=== PATIENT | male | born 1965 | race Caucasian/White ===

== ENCOUNTER 2017-03-18 19:42 | Inpatient (IN) | payer MEDICAID ==
[~2017-03-18] VITALS: Ht 175.3 cm; Wt 228.7 kg
[2017-03-18 22:06] VITALS: BP 96/59
[2017-03-18] MEDS ORDERED: CARV12.5 PO (22:10)
[2017-03-18] MEDS ORDERED: SIME80TA16 PO (22:15)
[2017-03-18] MEDS ORDERED: HYDR-3343 PO (22:15)
[2017-03-18] MEDS ORDERED: ERGO80004 PO (22:17)
[2017-03-18] MEDS ORDERED: DOCU50LI24 PO (22:39)
[2017-03-18] MEDS ORDERED: CEFD300C37 PO (22:39)
[2017-03-18] MEDS ORDERED: DOXY100T9 PO (22:39)
[2017-03-18] MEDS ORDERED: POLY17PO3 PO (22:39)
[2017-03-18] MEDS ORDERED: IBUP800T PO (22:39)
[2017-03-18] MEDS ORDERED: OXYC-223 PO (22:45)
[2017-03-18] MEDS ORDERED: CLON0.2T PO (22:45)
[2017-03-18] MEDS ORDERED: LISI40TA PO (22:45)
[2017-03-18] MEDS ORDERED: MELO-190 PO (22:45)
[2017-03-18] MEDS ORDERED: OXYC20OR8 PO (22:45)
[2017-03-18] MEDS ORDERED: GUAIFENESIN/DM 200-20MG, 10ML UDC PO PRN (23:00)
[2017-03-18] MEDS ORDERED: ONDANSETRON 2MG/ML, 2ML IVPush PRN (23:00)
[2017-03-18] MEDS ORDERED: DOCUSATE 100 MG CAPSULE PO PRN (23:00)
[2017-03-18] MEDS ORDERED: hydrALAzine 20 MG/ML, 1ML IVPush PRN (23:00)
[2017-03-18] MEDS ORDERED: POLYETHYLENE GLYCOL 17 GM PACKET PO PRN (23:00)
[2017-03-18] MEDS ORDERED: morphine SULFATE 10 MG/ML, 1ML IVPush PRN (23:00)
[2017-03-18] MEDS: DOXYCYCLINE 100MG TABLET PO SCH (23:58)
[2017-03-18] MEDS: CEFDINIR 300 MG CAPSULE PO SCH (23:58)
[2017-03-18] MEDS: SODIUM CHLORIDE 0.9% 1,000 ML IV SCH (23:59)
[2017-03-19] VITALS (19 sets, daily range): BP systolic 85–128; BP diastolic 39–71
[2017-03-19 00:19] LABS: TOTAL IRON BINDING CAPACITY 190 mcg/dL (250-450)
[2017-03-19 00:21] LABS: HEMOGLOBIN 6.6 g/dL (13.7-18.0)
[2017-03-19 00:26] LABS: BLOOD UREA NITROGEN 146 mg/dL (7-18)
[2017-03-19] MEDS: HYDROcodone/APAP 5/325 TABLET PO PRN ×2 (00:27→17:31)
[2017-03-19 00:40] LABS: FERRITIN 114.6 ng/mL (26-388)
[2017-03-19 00:49] LABS: DIFF TOTAL CELLS COUNTED 100 CELL DIFF
[2017-03-19 00:59] LABS: ANISOCYTOSIS 1+; HYPOCHROMIA 1+
[2017-03-19 01:00] LABS: POLYCHROMASIA 1+
[2017-03-19 01:01] LABS: VERIFY COUNTS? YES
[2017-03-19 02:43] LABS: POTASSIUM,URINE RANDOM 30 mmol/L
[2017-03-19] MEDS: INSULIN ASPART 100 UNITS/ML, PEN SQ-INSULIN SCH ×4 (07:00→20:34)
[2017-03-19] MEDS: SEVELAMER 800MG TABLET PO SCH ×3 (08:33→17:25)
[2017-03-19] MEDS: DOXYCYCLINE 100MG TABLET PO SCH ×2 (08:34→20:25)
[2017-03-19] MEDS: CEFDINIR 300 MG CAPSULE PO SCH (08:34)
[2017-03-19] MEDS: CARVEDILOL 3.125 MG TABLET PO SCH ×2 (08:35→20:25)
[2017-03-19] MEDS: SODIUM CHLORIDE 0.9% 1,000 ML IV SCH ×3 (10:18→20:26)
[2017-03-19 10:49] LABS: BLOOD UREA NITROGEN 146 mg/dL (7-18)
[2017-03-19 11:11] LABS: WHITE BLOOD COUNT 4.9 x10^3/uL (3.4-10)
[2017-03-19 11:14] LABS: HEMATOCRIT 20.8 % (39.2-51.8); HEMOGLOBIN 6.9 g/dL (13.7-18.0)
[2017-03-19 11:18] LABS: ANISOCYTOSIS 1+; OVALOCYTES 1+; POLYCHROMASIA 1+
[2017-03-19] MEDS: CEFTRIAXONE PMX 2GM/50ML 50 ML IV SCH (18:32)
[2017-03-19] MEDS: NYSTATIN TOPICAL POWDER 15GM TP SCH ×2 (20:00→20:26)
[2017-03-19] MEDS ORDERED: SODIUM CHLORIDE 0.9% 1,000 ML IV SCH (22:55)
[2017-03-20 01:30] VITALS: BP 108/57
[2017-03-20 03:17] LABS: ASPARTATE AMINO TRANSFERASE 26 U/L (15-37)
[2017-03-20 03:24] LABS: BLOOD UREA NITROGEN 148 mg/dL (7-18)
[2017-03-20 04:08] LABS: HEMATOCRIT 25.1 % (39.2-51.8); HEMOGLOBIN 8.4 g/dL (13.7-18.0); WHITE BLOOD COUNT 6.6 x10^3/uL (3.4-10)
[2017-03-20] MEDS: SODIUM CHLORIDE 0.9% 1,000 ML IV SCH ×2 (06:28→15:27)
[2017-03-20] MEDS: INSULIN ASPART 100 UNITS/ML, PEN SQ-INSULIN SCH ×4 (07:00→19:54)
[2017-03-20 07:45] VITALS: BP 91/55
[2017-03-20] MEDS: SEVELAMER 800MG TABLET PO SCH ×3 (08:00→16:52)
[2017-03-20] MEDS: NYSTATIN TOPICAL POWDER 15GM TP SCH ×2 (09:00→20:10)
[2017-03-20] MEDS: CARVEDILOL 3.125 MG TABLET PO SCH (09:00)
[2017-03-20 12:18] LABS: OCCBLD OBC PASS
[2017-03-20] MEDS: DOXYCYCLINE 100MG TABLET PO SCH ×2 (12:24→20:10)
[2017-03-20] MEDS: HYDROcodone/APAP 5/325 TABLET PO PRN (12:28)
[2017-03-20 13:09] VITALS: BP 130/79
[2017-03-20] MEDS: CEFTRIAXONE PMX 2GM/50ML 50 ML IV SCH (15:27)
[2017-03-20 19:55] VITALS: BP 112/63
[2017-03-21] VITALS (11 sets, daily range): BP systolic 92–128; BP diastolic 57–72
[2017-03-21] MEDS: HYDROcodone/APAP 5/325 TABLET PO PRN (00:03)
[2017-03-21] MEDS: SODIUM CHLORIDE 0.9% 1,000 ML IV SCH ×2 (01:30→11:29)
[2017-03-21 06:31] LABS: HEMATOCRIT 23.4 % (39.2-51.8); HEMOGLOBIN 7.7 g/dL (13.7-18.0); WHITE BLOOD COUNT 5.3 x10^3/uL (3.4-10)
[2017-03-21 06:50] LABS: ASPARTATE AMINO TRANSFERASE 22 U/L (15-37)
[2017-03-21 06:52] LABS: BLOOD UREA NITROGEN 139 mg/dL (7-18)
[2017-03-21] MEDS: INSULIN ASPART 100 UNITS/ML, PEN SQ-INSULIN SCH ×4 (07:00→20:04)
[2017-03-21] MEDS: HYDROCORTISONE 25 MG SUPP PR SCH ×3 (09:33→20:43)
[2017-03-21] MEDS: NYSTATIN TOPICAL POWDER 15GM TP SCH ×2 (09:35→20:43)
[2017-03-21] MEDS: SEVELAMER 800MG TABLET PO SCH ×3 (09:36→16:59)
[2017-03-21] MEDS: DOXYCYCLINE 100MG TABLET PO SCH ×2 (09:36→20:43)
[2017-03-21] MEDS: ALBUMIN HUMAN 25% 50 ML IV SCH ×3 (13:26→21:39)
[2017-03-21] MEDS: CEFTRIAXONE PMX 2GM/50ML 50 ML IV SCH (14:49)
[2017-03-21 15:32] LABS: HEMATOCRIT 20.5 % (39.2-51.8); HEMOGLOBIN 6.8 g/dL (13.7-18.0)
[2017-03-22] MEDS: SODIUM CHLORIDE 0.9% 1,000 ML IV SCH ×2 (01:18→12:27)
[2017-03-22 01:40] VITALS: BP 85/36
[2017-03-22 05:05] LABS: HEMATOCRIT 24.5 % (39.2-51.8); HEMOGLOBIN 8.2 g/dL (13.7-18.0); WHITE BLOOD COUNT 5.1 x10^3/uL (3.4-10)
[2017-03-22 05:09] LABS: ASPARTATE AMINO TRANSFERASE 20 U/L (15-37)
[2017-03-22 05:13] LABS: BLOOD UREA NITROGEN 134 mg/dL (7-18)
[2017-03-22] MEDS: INSULIN ASPART 100 UNITS/ML, PEN SQ-INSULIN SCH ×4 (07:00→21:00)
[2017-03-22 07:38] VITALS: BP 96/58
[2017-03-22] MEDS: SEVELAMER 800MG TABLET PO SCH ×3 (08:00→16:59)
[2017-03-22] MEDS: ALBUMIN HUMAN 25% 50 ML IV SCH ×2 (10:31→21:54)
[2017-03-22] MEDS: NYSTATIN TOPICAL POWDER 15GM TP SCH ×2 (10:31→21:55)
[2017-03-22] MEDS: HYDROCORTISONE 25 MG SUPP PR SCH ×3 (10:31→21:54)
[2017-03-22] MEDS: DOXYCYCLINE 100MG TABLET PO SCH ×2 (10:31→21:54)
[2017-03-22 14:57] VITALS: BP 143/67
[2017-03-22] MEDS: CEFTRIAXONE PMX 2GM/50ML 50 ML IV SCH (15:02)
[2017-03-22] MEDS: GOLYTELY 4,000ML ORAL.SOL PO SCH (16:59)
[2017-03-22 18:28] VITALS: BP 105/64
[2017-03-22] MEDS: HYDROcodone/APAP 5/325 TABLET PO PRN (22:05)
[2017-03-23] VITALS (12 sets, daily range): BP systolic 99–149; BP diastolic 44–73
[2017-03-23] MEDS: GOLYTELY 4,000ML ORAL.SOL PO SCH (02:27)
[2017-03-23] MEDS: SODIUM CHLORIDE 0.9% 1,000 ML IV SCH ×2 (04:12→23:48)
[2017-03-23 06:13] LABS: HEMATOCRIT 25.9 % (39.2-51.8); HEMOGLOBIN 8.7 g/dL (13.7-18.0)
[2017-03-23 06:24] LABS: ASPARTATE AMINO TRANSFERASE 24 U/L (15-37)
[2017-03-23 06:36] LABS: BLOOD UREA NITROGEN 111 mg/dL (7-18)
[2017-03-23] MEDS: INSULIN ASPART 100 UNITS/ML, PEN SQ-INSULIN SCH ×4 (07:00→21:00)
[2017-03-23] MEDS: SEVELAMER 800MG TABLET PO SCH ×3 (07:21→17:00)
[2017-03-23] MEDS: HYDROCORTISONE 25 MG SUPP PR SCH ×3 (07:22→21:08)
[2017-03-23] MEDS: DOXYCYCLINE 100MG TABLET PO SCH ×2 (07:22→21:07)
[2017-03-23 09:00] LABS: HEMATOCRIT 26.2 % (39.2-51.8); HEMOGLOBIN 8.8 g/dL (13.7-18.0); WHITE BLOOD COUNT 5.4 x10^3/uL (3.4-10)
[2017-03-23] MEDS: NYSTATIN TOPICAL POWDER 15GM TP SCH ×2 (09:00→21:08)
[2017-03-23] MEDS ORDERED: PROPOFOL 10 MG/ML, 50ML ONE (09:06)
[2017-03-23] MEDS: HYDROcodone/APAP 5/325 TABLET PO PRN (12:30)
[2017-03-23 12:36] LABS: HEMATOCRIT 25.8 % (39.2-51.8); HEMOGLOBIN 8.6 g/dL (13.7-18.0)
[2017-03-23] MEDS: ALBUMIN HUMAN 25% 50 ML IV SCH ×2 (15:36→21:08)
[2017-03-23] MEDS: CEFTRIAXONE PMX 2GM/50ML 50 ML IV SCH (15:36)
[2017-03-23 23:58] LABS: HEMATOCRIT 25.1 % (39.2-51.8); HEMOGLOBIN 8.1 g/dL (13.7-18.0)
[2017-03-24 01:33] VITALS: BP 114/68
[2017-03-24 05:42] LABS: HEMATOCRIT 24.5 % (39.2-51.8)
[2017-03-24 06:01] LABS: BLOOD UREA NITROGEN 99 mg/dL (7-18)
[2017-03-24] MEDS: INSULIN ASPART 100 UNITS/ML, PEN SQ-INSULIN SCH (07:00)
[2017-03-24 07:30] VITALS: BP 105/65
[2017-03-24] MEDS: HYDROCORTISONE 25 MG SUPP PR SCH ×3 (08:29→21:00)
[2017-03-24] MEDS: DOXYCYCLINE 100MG TABLET PO SCH ×2 (08:29→21:45)
[2017-03-24] MEDS: NYSTATIN TOPICAL POWDER 15GM TP SCH ×2 (08:29→21:45)
[2017-03-24] MEDS: ALBUMIN HUMAN 25% 50 ML IV SCH ×2 (08:29→21:00)
[2017-03-24] MEDS: SEVELAMER 800MG TABLET PO SCH ×3 (08:29→16:02)
[2017-03-24] MEDS ORDERED: MAALOX/HYOSCYAMINE/LIDOCAINE 45 ML BTL PO PRN ×2 (09:00)
[2017-03-24] MEDS: PANTOPROZOLE 40MG TABLET PO SCH ×2 (11:08→21:45)
[2017-03-24] MEDS: SUCRALFATE 1 GM TABLET PO SCH ×3 (11:08→21:45)
[2017-03-24 11:16] LABS: PROTIME 14.5 Seconds (9.6-11.5)
[2017-03-24 11:37] LABS: HEMATOCRIT 25.1 % (39.2-51.8); HEMOGLOBIN 8.4 g/dL (13.7-18.0)
[2017-03-24 12:30] VITALS: BP 93/58
[2017-03-24] MEDS: SODIUM CHLORIDE 0.9% 1,000 ML IV SCH (14:11)
[2017-03-24] MEDS: CEFTRIAXONE PMX 2GM/50ML 50 ML IV SCH (14:12)
[2017-03-24 17:25] LABS: HEMATOCRIT 25.9 % (39.2-51.8); HEMOGLOBIN 8.2 g/dL (13.7-18.0)
[2017-03-24 20:00] VITALS: BP 104/62
[2017-03-25 02:00] VITALS: BP 105/57
[2017-03-25] MEDS: SODIUM CHLORIDE 0.9% 1,000 ML IV SCH ×2 (05:08→16:46)
[2017-03-25 05:59] LABS: HEMATOCRIT 25.7 % (39.2-51.8); HEMOGLOBIN 8.7 g/dL (13.7-18.0); WHITE BLOOD COUNT 5.9 x10^3/uL (3.4-10)
[2017-03-25 06:06] LABS: BLOOD UREA NITROGEN 91 mg/dL (7-18)
[2017-03-25 07:06] VITALS: BP 84/50
[2017-03-25] MEDS: HYDROCORTISONE 25 MG SUPP PR SCH ×3 (09:00→20:47)
[2017-03-25] MEDS: NYSTATIN TOPICAL POWDER 15GM TP SCH ×2 (09:14→20:48)
[2017-03-25] MEDS: SUCRALFATE 1 GM TABLET PO SCH ×4 (09:15→20:47)
[2017-03-25] MEDS: PANTOPROZOLE 40MG TABLET PO SCH ×2 (09:15→20:47)
[2017-03-25] MEDS: SEVELAMER 800MG TABLET PO SCH ×3 (09:15→16:46)
[2017-03-25] MEDS: DOXYCYCLINE 100MG TABLET PO SCH ×2 (09:15→20:46)
[2017-03-25 11:33] VITALS: BP 90/51
[2017-03-25 12:53] VITALS: BP 92/53
[2017-03-25] MEDS: CEFTRIAXONE PMX 2GM/50ML 50 ML IV SCH (14:00)
[2017-03-25] MEDS ORDERED: LIDOCAINE 1%, 20ML ONE (15:46)
[2017-03-25] MEDS ORDERED: MIDAZOLAM 1 MG/ML, 5ML ONE (15:53)
[2017-03-25] MEDS ORDERED: FENTANYL PF 100 MCG/2ML ONE (15:54)
[2017-03-25] MEDS ORDERED: NALOXONE 1 MG/ML, 2ML ONE (15:54)
[2017-03-25] MEDS ORDERED: FLUMAZENIL 0.1 MG/1 ML, 5ML ONE (15:54)
[2017-03-25 20:00] VITALS: BP 89/54
[2017-03-26] VITALS (11 sets, daily range): BP systolic 95–119; BP diastolic 40–63
[2017-03-26] MEDS: HYDROcodone/APAP 5/325 TABLET PO PRN ×2 (03:26→13:36)
[2017-03-26 03:32] LABS: HEMATOCRIT 24.7 % (39.2-51.8); HEMOGLOBIN 8.2 g/dL (13.7-18.0); WHITE BLOOD COUNT 5.4 x10^3/uL (3.4-10)
[2017-03-26 03:41] LABS: BLOOD UREA NITROGEN 83 mg/dL (7-18)
[2017-03-26] MEDS: SODIUM CHLORIDE 0.9% 1,000 ML IV SCH ×2 (06:30→20:01)
[2017-03-26] MEDS: SUCRALFATE 1 GM TABLET PO SCH ×4 (08:37→20:01)
[2017-03-26] MEDS: DOXYCYCLINE 100MG TABLET PO SCH ×3 (08:37→20:01)
[2017-03-26] MEDS: SEVELAMER 800MG TABLET PO SCH ×3 (08:37→17:56)
[2017-03-26] MEDS: PANTOPROZOLE 40MG TABLET PO SCH ×2 (08:37→20:01)
[2017-03-26] MEDS: HYDROCORTISONE 25 MG SUPP PR SCH ×3 (08:37→20:05)
[2017-03-26] MEDS: NYSTATIN TOPICAL POWDER 15GM TP SCH ×2 (09:00→20:01)
[2017-03-26] MEDS: CEFTRIAXONE PMX 2GM/50ML 50 ML IV SCH ×2 (09:53→11:15)
[2017-03-26] MEDS ORDERED: ALBUTEROL SULFATE 2.5 MG/3 ML ONE (21:49)
[2017-03-27 04:50] VITALS: BP 108/42
[2017-03-27 04:51] LABS: HEMATOCRIT 23.7 % (39.2-51.8); HEMOGLOBIN 7.9 g/dL (13.7-18.0)
[2017-03-27 04:59] LABS: BLOOD UREA NITROGEN 80 mg/dL (7-18)
[2017-03-27 06:45] VITALS: BP 90/52
[2017-03-27] MEDS: HYDROCORTISONE 25 MG SUPP PR SCH ×3 (07:49→21:00)
[2017-03-27] MEDS: SEVELAMER 800MG TABLET PO SCH ×3 (09:22→18:21)
[2017-03-27] MEDS: DOXYCYCLINE 100MG TABLET PO SCH ×2 (09:22→21:39)
[2017-03-27] MEDS: CEFTRIAXONE PMX 2GM/50ML 50 ML IV SCH (09:22)
[2017-03-27] MEDS: NYSTATIN TOPICAL POWDER 15GM TP SCH ×2 (09:22→21:39)
[2017-03-27] MEDS: SUCRALFATE 1 GM TABLET PO SCH ×4 (09:22→21:39)
[2017-03-27] MEDS: PANTOPROZOLE 40MG TABLET PO SCH ×2 (09:22→21:39)
[2017-03-27] MEDS: SODIUM CHLORIDE 0.9% 1,000 ML IV SCH (09:23)
[2017-03-27 13:22] VITALS: BP 111/60
[2017-03-27 18:31] VITALS: BP 119/66
[2017-03-28] VITALS (7 sets, daily range): BP systolic 75–99; BP diastolic 41–64
[2017-03-28] MEDS: HYDROcodone/APAP 5/325 TABLET PO PRN (05:17)
[2017-03-28] MEDS: SODIUM CHLORIDE 0.9% 1,000 ML IV SCH (05:47)
[2017-03-28 06:23] LABS: HEMATOCRIT 24.4 % (39.2-51.8); HEMOGLOBIN 8.1 g/dL (13.7-18.0); WHITE BLOOD COUNT 5.4 x10^3/uL (3.4-10)
[2017-03-28 06:37] LABS: BLOOD UREA NITROGEN 83 mg/dL (7-18)
[2017-03-28] MEDS: SUCRALFATE 1 GM TABLET PO SCH ×4 (08:21→20:10)
[2017-03-28] MEDS: HYDROCORTISONE 25 MG SUPP PR SCH ×3 (09:00→20:10)
[2017-03-28] MEDS: CEFTRIAXONE PMX 2GM/50ML 50 ML IV SCH (09:38)
[2017-03-28] MEDS: DOXYCYCLINE 100MG TABLET PO SCH ×2 (09:38→20:10)
[2017-03-28] MEDS: SEVELAMER 800MG TABLET PO SCH ×3 (09:39→17:32)
[2017-03-28] MEDS: PANTOPROZOLE 40MG TABLET PO SCH ×2 (09:39→20:10)
[2017-03-28] MEDS: NYSTATIN TOPICAL POWDER 15GM TP SCH ×2 (12:26→20:10)
[2017-03-29 00:49] VITALS: BP 95/52
[2017-03-29 08:20] VITALS: BP 94/55
[2017-03-29] MEDS: SUCRALFATE 1 GM TABLET PO SCH ×2 (08:36→12:35)
[2017-03-29] MEDS: HYDROCORTISONE 25 MG SUPP PR SCH (09:00)
[2017-03-29] MEDS: CEFTRIAXONE PMX 2GM/50ML 50 ML IV SCH (09:39)
[2017-03-29] MEDS: SEVELAMER 800MG TABLET PO SCH (09:39)
[2017-03-29] MEDS: DOXYCYCLINE 100MG TABLET PO SCH (09:40)
[2017-03-29] MEDS: NYSTATIN TOPICAL POWDER 15GM TP SCH (09:40)
[2017-03-29] MEDS: PANTOPROZOLE 40MG TABLET PO SCH (09:40)
== END 2017-03-29 13:34 | disposition left against medical advice (07) | DRG 871 ==
LOC: 4WST 20:44 → 4EST 03-26 20:53
PROVIDERS: ADMIT Internal Medicine; ATTEND Internal Medicine
PROC: 02HV33Z Insertion of Infusion Device into Superior Vena Cava, Percutaneous Approach (ICD-10-PCS; principal; 2017-03-19)
PROC: B548ZZA Ultrasonography of Superior Vena Cava, Guidance (ICD-10-PCS; 2017-03-19)
PROC: 30233N1 Transfusion of Nonautologous Red Blood Cells into Peripheral Vein, Percutaneous Approach (ICD-10-PCS; 2017-03-19)
PROC: 30233N1 Transfusion of Nonautologous Red Blood Cells into Peripheral Vein, Percutaneous Approach (ICD-10-PCS; 2017-03-21)
PROC: 05HQ33Z Insertion of Infusion Device into Left External Jugular Vein, Percutaneous Approach (ICD-10-PCS; 2017-03-23)
PROC: B544ZZA Ultrasonography of Left Jugular Veins, Guidance (ICD-10-PCS; 2017-03-23)
PROC: 02HV33Z Insertion of Infusion Device into Superior Vena Cava, Percutaneous Approach (ICD-10-PCS; 2017-03-23)
PROC: B548ZZA Ultrasonography of Superior Vena Cava, Guidance (ICD-10-PCS; 2017-03-23)
PROC: 0DB98ZX Excision of Duodenum, Via Natural or Artificial Opening Endoscopic, Diagnostic (ICD-10-PCS; 2017-03-23)
PROC: 0DB68ZX Excision of Stomach, Via Natural or Artificial Opening Endoscopic, Diagnostic (ICD-10-PCS; 2017-03-23)
PROC: 3E0G8GC Introduction of Other Therapeutic Substance into Upper GI, Via Natural or Artificial Opening Endoscopic (ICD-10-PCS; 2017-03-23)
PROC: 0W3P8ZZ Control Bleeding in Gastrointestinal Tract, Via Natural or Artificial Opening Endoscopic (ICD-10-PCS; 2017-03-23)
PROC: 30233L1 Transfusion of Nonautologous Fresh Plasma into Peripheral Vein, Percutaneous Approach (ICD-10-PCS; 2017-03-23)
PROC: 30233R1 Transfusion of Nonautologous Platelets into Peripheral Vein, Percutaneous Approach (ICD-10-PCS; 2017-03-23)
PROC: 30233K1 Transfusion of Nonautologous Frozen Plasma into Peripheral Vein, Percutaneous Approach (ICD-10-PCS; 2017-03-23)
PROC: 07DR3ZX Extraction of Iliac Bone Marrow, Percutaneous Approach, Diagnostic (ICD-10-PCS; 2017-03-25)
DX: A41.9 Sepsis, unspecified organism (principal); E43 Unspecified severe protein-calorie malnutrition; K26.4 Chronic or unspecified duodenal ulcer with hemorrhage; N17.0 Acute kidney failure with tubular necrosis; Z68.45 Body mass index [BMI] 70 or greater, adult; D62 Acute posthemorrhagic anemia; E87.2 Acidosis; I82.611 Acute embolism and thrombosis of superficial veins of right upper extremity; N39.0 Urinary tract infection, site not specified; N18.4 Chronic kidney disease, stage 4 (severe); D53.9 Nutritional anemia, unspecified; D63.8 Anemia in other chronic diseases classified elsewhere; D69.59 Other secondary thrombocytopenia; E83.39 Other disorders of phosphorus metabolism; T39.395A Adverse effect of other nonsteroidal anti-inflammatory drugs [NSAID], initial encounter; K02.9 Dental caries, unspecified; K04.7 Periapical abscess without sinus; K05.30 Chronic periodontitis, unspecified; K64.9 Unspecified hemorrhoids; I12.9 Hypertensive chronic kidney disease with stage 1 through stage 4 chronic kidney disease, or unspecified chronic kidney disease; E11.22 Type 2 diabetes mellitus with diabetic chronic kidney disease; E66.01 Morbid (severe) obesity due to excess calories; E87.5 Hyperkalemia; W18.39XA Other fall on same level, initial encounter; Y92.238 Other place in hospital as the place of occurrence of the external cause; I89.0 Lymphedema, not elsewhere classified; Z82.49 Family history of ischemic heart disease and other diseases of the circulatory system; Z80.0 Family history of malignant neoplasm of digestive organs; Z83.71 Family history of colonic polyps; Z90.49 Acquired absence of other specified parts of digestive tract; Z88.1 Allergy status to other antibiotic agents; Y93.89 Activity, other specified; Y99.8 Other external cause status
CPT/HCPCS: 36415; 36569; 36584; 71010; 76770; 76937; 77001; 77002; 78582; 80048; 80053; 81001; 82272; 82436; 82570; 82607; 82728; 82746; 82962; 83036; 83540; 83550; 83605; 83735; 83935; 84100; 84132; 84133; 84145; 84300; 84439; 84443; 85014; 85018; 85025; 85045; 85049; 85097; 85362; 85379; 85384; 85610; 85730; 86850; 86900; 86923; 87040; 87086; 87205; 88237; 88264; 88280; 88305; 88311; 88313; 88341; 88342; 94640; 99156; 99157; G0364; J0696; J2250; J2704; J3010; J3490; P9047; A9540; A9558; C1751; C9898; G0461; J2310; J7030; P9016; P9017; P9035

== ENCOUNTER 2017-03-30 13:30 | Inpatient (IN) | payer MEDICAID ==
[~2017-03-30] VITALS: Ht 172.7 cm; Wt 196.0 kg
[~2017-03-30 13:30] MED LIST: CARV12.5 PO; CEFD300C37 PO; CLON0.2T PO; DOCU50LI24 PO; DOXY100T9 PO; ERGO80004 PO; HYDR-3343 PO; IBUP-1223 PO; LISI40TA PO; MELO7.5T31 PO; OXYC-306 PO; OXYC20OR8 PO; POLY17PO3 PO; SIME80TA16 PO
[2017-03-30 16:07] LABS: HEMATOCRIT 24.2 % (39.2-51.8); WHITE BLOOD COUNT 5.9 x10^3/uL (3.4-10)
[2017-03-30 16:14] LABS: ASPARTATE AMINO TRANSFERASE 31 U/L (15-37); BLOOD UREA NITROGEN 83 mg/dL (7-18)
[2017-03-30] MEDS: SODIUM CHLORIDE 0.9% 1,000 ML IV SCH (17:43)
[2017-03-30] MEDS ORDERED: ACETAMINOPHEN 325 MG TABLET PO PRN (18:00)
[2017-03-30] MEDS ORDERED: morphine SULFATE 10 MG/ML, 1ML IVPush PRN (18:00)
[2017-03-30] MEDS ORDERED: ONDANSETRON 2MG/ML, 2ML IVPush PRN (18:00)
[2017-03-30] MEDS: SUCRALFATE 1 GM TABLET PO SCH ×2 (18:00→20:07)
[2017-03-30] MEDS ORDERED: hydrALAzine 20 MG/ML, 1ML IVPush PRN (18:00)
[2017-03-30 18:02] VITALS: BP 89/37
[2017-03-30 19:29] VITALS: BP 105/60
[2017-03-30] MEDS: PANTOPROZOLE 40MG TABLET PO SCH (20:07)
[2017-03-31 01:10] VITALS: BP 83/43
[2017-03-31] MEDS: SODIUM CHLORIDE 0.9% 1,000 ML IV SCH ×2 (04:10→14:58)
[2017-03-31 05:38] LABS: BLOOD UREA NITROGEN 85 mg/dL (7-18)
[2017-03-31] MEDS: PANTOPROZOLE 40MG TABLET PO SCH ×2 (08:39→21:49)
[2017-03-31] MEDS: SUCRALFATE 1 GM TABLET PO SCH ×4 (08:39→21:48)
[2017-03-31] MEDS: POLYETHYLENE GLYCOL 17 GM PACKET PO SCH (08:39)
[2017-03-31 08:42] VITALS: BP 99/54
[2017-03-31] MEDS: HYDROcodone/APAP 5/325 TABLET PO PRN (09:29)
[2017-03-31 14:21] VITALS: BP 102/46
[2017-03-31] MEDS: ALBUMIN HUMAN 25% 50 ML IV SCH (16:27)
[2017-03-31 19:32] VITALS: BP 92/44
[2017-04-01] VITALS (11 sets, daily range): BP systolic 75–100; BP diastolic 40–59
[2017-04-01 06:20] LABS: BLOOD UREA NITROGEN 86 mg/dL (7-18)
[2017-04-01 06:24] LABS: HEMOGLOBIN 7.3 g/dL (13.7-18.0)
[2017-04-01 06:31] LABS: HEMATOCRIT 22.3 % (39.2-51.8)
[2017-04-01] MEDS: SUCRALFATE 1 GM TABLET PO SCH ×4 (08:03→21:48)
[2017-04-01] MEDS: ALBUMIN HUMAN 25% 50 ML IV SCH (08:24)
[2017-04-01] MEDS: POLYETHYLENE GLYCOL 17 GM PACKET PO SCH (08:28)
[2017-04-01] MEDS: PANTOPROZOLE 40MG TABLET PO SCH ×2 (08:28→21:48)
[2017-04-01] MEDS: HYDROcodone/APAP 5/325 TABLET PO PRN (16:48)
[2017-04-02 01:50] VITALS: BP 92/55
[2017-04-02 05:30] LABS: HEMATOCRIT 25.3 % (39.2-51.8); HEMOGLOBIN 8.4 g/dL (13.7-18.0); WHITE BLOOD COUNT 5.3 x10^3/uL (3.4-10)
[2017-04-02 05:38] LABS: BLOOD UREA NITROGEN 88 mg/dL (7-18)
[2017-04-02 07:01] VITALS: BP 83/31
[2017-04-02 07:19] VITALS: BP 80/40
[2017-04-02] MEDS: POLYETHYLENE GLYCOL 17 GM PACKET PO SCH (07:56)
[2017-04-02] MEDS: PANTOPROZOLE 40MG TABLET PO SCH ×2 (07:56→20:09)
[2017-04-02] MEDS: SUCRALFATE 1 GM TABLET PO SCH ×4 (07:56→20:09)
[2017-04-02] MEDS: ALBUMIN HUMAN 25% 50 ML IV SCH (09:55)
[2017-04-02 14:00] VITALS: BP 76/43
[2017-04-03 01:21] LABS: HEMATOCRIT 26.4 % (39.2-51.8); HEMOGLOBIN 8.5 g/dL (13.7-18.0)
[2017-04-03 02:09] VITALS: BP 70/34
[2017-04-03] MEDS: SUCRALFATE 1 GM TABLET PO SCH ×4 (07:41→20:43)
[2017-04-03] MEDS: SODIUM CHLORIDE 0.9% 1,000 ML IV SCH ×2 (07:41→17:32)
[2017-04-03] MEDS: PANTOPROZOLE 40MG TABLET PO SCH ×2 (07:41→20:43)
[2017-04-03] MEDS: POLYETHYLENE GLYCOL 17 GM PACKET PO SCH (07:41)
[2017-04-03 08:50] VITALS: BP 147/52
[2017-04-03] MEDS: ALBUMIN HUMAN 25% 50 ML IV SCH (09:00)
[2017-04-03] MEDS ORDERED: PIPERACILLIN/TAZO/PMX 3.375GM 50 ML IV SCH (10:00)
[2017-04-03] MEDS ORDERED: PIPERACILLIN/TAZO/PMX 3.375GM 50 ML IV ONE (10:00)
[2017-04-03] MEDS ORDERED: PHARMACY INSTRUCTION MC SCH (10:00)
[2017-04-03 13:02] VITALS: BP 90/55
[2017-04-03 20:30] VITALS: BP 82/42
[2017-04-03] MEDS: PIPERACILLIN/TAZO 2.25 GM in NS 50 ML IV SCH (20:42)
[2017-04-04 02:01] VITALS: BP 86/33
[2017-04-04] MEDS: SODIUM CHLORIDE 0.9% 1,000 ML IV SCH (04:31)
[2017-04-04] MEDS: PIPERACILLIN/TAZO 2.25 GM in NS 50 ML IV SCH ×2 (05:15→17:14)
[2017-04-04 05:21] LABS: ASPARTATE AMINO TRANSFERASE 17 U/L (15-37); BLOOD UREA NITROGEN 92 mg/dL (7-18); HEMATOCRIT 26.7 % (39.2-51.8); HEMOGLOBIN 8.9 g/dL (13.7-18.0)
[2017-04-04] MEDS: SUCRALFATE 1 GM TABLET PO SCH ×4 (07:00→22:30)
[2017-04-04] MEDS: POLYETHYLENE GLYCOL 17 GM PACKET PO SCH (08:15)
[2017-04-04] MEDS: PANTOPROZOLE 40MG TABLET PO SCH ×2 (08:15→22:30)
[2017-04-04] MEDS ORDERED: VANCOMYCIN PMX 1GM/200ML 200 ML IV ONE (08:30)
[2017-04-04] MEDS ORDERED: VANCOMYCIN PER PHARMACY MC PRN (08:30)
[2017-04-04 08:45] VITALS: BP 75/30
[2017-04-04] MEDS ORDERED: PHARMACOKINETIC CONSULTATION MC ONE (09:00)
[2017-04-04] MEDS ORDERED: PHARMACOKINETIC MONITORING MC PRN (09:00)
[2017-04-04] MEDS ORDERED: VANCOMYCIN 3,000 MG in SODIUM CHLORIDE 0.9% 500 ML IV ONE (10:00)
[2017-04-04] MEDS: ALBUMIN HUMAN 25% 50 ML IV SCH ×2 (10:18→17:00)
[2017-04-04 10:20] VITALS: BP 77/31
[2017-04-04 12:21] VITALS: BP 78/39
[2017-04-04] MEDS ORDERED: FENTANYL PF 100 MCG/2ML ONE (13:51)
[2017-04-04] MEDS ORDERED: ROCURONIUM 10 MG/ML ONE (14:10)
[2017-04-04] MEDS ORDERED: SUCCINYLCHOLINE 20 MG/ML, 10ML ONE (14:10)
[2017-04-04] MEDS ORDERED: PHENYLEPHRINE 10 MG/ML ONE (14:10)
[2017-04-04] MEDS ORDERED: PROPOFOL 10 MG/ML, 20ML ONE (14:10)
[2017-04-04] MEDS ORDERED: FENTANYL PF 100 MCG/2ML IV PRN (14:30)
[2017-04-04] MEDS ORDERED: OXYcodone 5 MG/5 ML ORAL.SOL UDC PO PRN (14:30)
[2017-04-04] MEDS ORDERED: ONDANSETRON 2MG/ML, 2ML IVPush PRN (14:30)
[2017-04-04] MEDS ORDERED: LABETALOL 5MG/ML, 20ML IV PRN (14:30)
[2017-04-04] MEDS ORDERED: hydrALAzine 20 MG/ML, 1ML IV PRN (14:30)
[2017-04-04] MEDS ORDERED: HYDROmorphone 1 MG/ML, 1ML IV PRN (14:30)
[2017-04-04] MEDS ORDERED: PROMETHAZINE 25 MG/ML, 1ML IV PRN (14:30)
[2017-04-04 20:05] VITALS: BP 93/58
[2017-04-05] MEDS: PIPERACILLIN/TAZO 2.25 GM in NS 50 ML IV SCH ×3 (00:58→17:16)
[2017-04-05] MEDS: ALBUMIN HUMAN 25% 50 ML IV SCH ×3 (00:59→16:20)
[2017-04-05 02:12] VITALS: BP 87/54
[2017-04-05 05:19] LABS: HEMATOCRIT 26.6 % (39.2-51.8); HEMOGLOBIN 8.8 g/dL (13.7-18.0); WHITE BLOOD COUNT 5.4 x10^3/uL (3.4-10)
[2017-04-05 05:37] LABS: ASPARTATE AMINO TRANSFERASE 15 U/L (15-37); BLOOD UREA NITROGEN 89 mg/dL (7-18); FERRITIN 154.6 ng/mL (26-388); TOTAL IRON BINDING CAPACITY 162 mcg/dL (250-450)
[2017-04-05] MEDS: SUCRALFATE 1 GM TABLET PO SCH ×4 (07:25→22:12)
[2017-04-05 08:24] VITALS: BP 80/44
[2017-04-05] MEDS: POLYETHYLENE GLYCOL 17 GM PACKET PO SCH (09:00)
[2017-04-05] MEDS: PANTOPROZOLE 40MG TABLET PO SCH ×2 (09:08→22:12)
[2017-04-05] MEDS: SODIUM CHLORIDE 0.9% 1,000 ML IV SCH ×2 (09:08→22:12)
[2017-04-05] MEDS ORDERED: VANCOMYCIN 2,200 MG in SODIUM CHLORIDE 0.9% 500 ML IV ONE (11:00)
[2017-04-05] MEDS: MIDODRINE 5 MG TABLET PO SCH ×3 (11:00→22:12)
[2017-04-05 12:02] VITALS: BP 105/58
[2017-04-05] MEDS ORDERED: VANCOMYCIN PER PHARMACY MC PRN (18:30)
[2017-04-05] MEDS ORDERED: PHARMACY INSTRUCTION MC SCH (18:30)
[2017-04-05] MEDS ORDERED: morphine SULFATE 10 MG/ML, 1ML IVPush PRN (18:30)
[2017-04-05] MEDS ORDERED: hydrALAzine 20 MG/ML, 1ML IVPush PRN (18:30)
[2017-04-05 20:00] VITALS: BP 81/47
[2017-04-06] MEDS: ALBUMIN HUMAN 25% 50 ML IV SCH ×3 (01:00→17:45)
[2017-04-06] MEDS: PIPERACILLIN/TAZO/PMX 2.25GM 50 ML IV SCH ×3 (01:12→17:40)
[2017-04-06 02:30] VITALS: BP 81/34
[2017-04-06 05:11] LABS: BLOOD UREA NITROGEN 90 mg/dL (7-18)
[2017-04-06 06:28] VITALS: BP 87/49
[2017-04-06] MEDS: SODIUM CHLORIDE 0.9% 1,000 ML IV SCH (06:35)
[2017-04-06] MEDS ORDERED: COSYNTROPIN 0.25 MG IM ONE (07:30)
[2017-04-06] MEDS: SUCRALFATE 1 GM TABLET PO SCH ×4 (07:49→21:41)
[2017-04-06] MEDS: POLYETHYLENE GLYCOL 17 GM PACKET PO SCH (09:00)
[2017-04-06] MEDS: MIDODRINE 5 MG TABLET PO SCH ×3 (09:20→21:41)
[2017-04-06] MEDS: PANTOPROZOLE 40MG TABLET PO SCH ×2 (09:20→21:41)
[2017-04-06] MEDS ORDERED: LIDOCAINE 1%, 20ML ONE (13:11)
[2017-04-06] MEDS ORDERED: FENTANYL PF 100 MCG/2ML ONE (13:33)
[2017-04-06 14:00] VITALS: BP 97/44
[2017-04-06 18:34] VITALS: BP 78/31
[2017-04-06] MEDS ORDERED: PHARMACOKINETIC MONITORING MC PRN (19:00)
[2017-04-06] MEDS ORDERED: SODIUM CHLORIDE 0.9%, 250ML IVBOLUS ONE (19:00)
[2017-04-06] MEDS ORDERED: PHARMACY INSTRUCTION MC SCH (19:00)
[2017-04-06] MEDS ORDERED: ACETAMINOPHEN 325 MG TABLET PO PRN (19:00)
[2017-04-06] MEDS ORDERED: ONDANSETRON 2MG/ML, 2ML IVPush PRN (19:00)
[2017-04-06] MEDS: DOXYCYCLINE 100MG TABLET PO SCH (21:42)
[2017-04-07] MEDS: PIPERACILLIN/TAZO/PMX 2.25GM 50 ML IV SCH ×3 (01:14→17:09)
[2017-04-07] MEDS: ALBUMIN HUMAN 25% 50 ML IV SCH ×3 (01:54→18:23)
[2017-04-07 02:06] VITALS: BP 77/41
[2017-04-07 06:26] LABS: BLOOD UREA NITROGEN 72 mg/dL (7-18)
[2017-04-07 06:50] VITALS: BP 91/66
[2017-04-07 07:00] VITALS: BP 159/81
[2017-04-07] MEDS: POLYETHYLENE GLYCOL 17 GM PACKET PO SCH (09:16)
[2017-04-07] MEDS: PANTOPROZOLE 40MG TABLET PO SCH ×2 (09:29→22:35)
[2017-04-07] MEDS: MIDODRINE 5 MG TABLET PO SCH ×3 (09:29→22:35)
[2017-04-07] MEDS: DOXYCYCLINE 100MG TABLET PO SCH ×2 (09:29→22:35)
[2017-04-07] MEDS: SUCRALFATE 1 GM TABLET PO SCH ×4 (09:30→22:35)
[2017-04-07 12:35] VITALS: BP 109/45
[2017-04-07 14:11] LABS: UR ALBUMIN 58.4 % (.); UR ALPHA-1-GLOBULIN 0.4 % (.); UR BETA GLOBULIN 8.9 % (.); UR GAMMA GLOBULIN 27.4 % (.); UR M-SPIKE % Not Observed % (Not Observed)
[2017-04-07 19:38] VITALS: BP 113/58
[2017-04-08 00:06] VITALS: BP 90/50
[2017-04-08] MEDS: ALBUMIN HUMAN 25% 50 ML IV SCH ×3 (00:52→17:03)
[2017-04-08] MEDS: PIPERACILLIN/TAZO/PMX 2.25GM 50 ML IV SCH ×3 (01:29→16:25)
[2017-04-08 05:54] LABS: HEMATOCRIT 24.8 % (39.2-51.8); HEMOGLOBIN 8.2 g/dL (13.7-18.0); WHITE BLOOD COUNT 4.4 x10^3/uL (3.4-10)
[2017-04-08 06:14] LABS: ASPARTATE AMINO TRANSFERASE 17 U/L (15-37); BLOOD UREA NITROGEN 57 mg/dL (7-18); FERRITIN 144.6 ng/mL (26-388); TOTAL IRON BINDING CAPACITY 145 mcg/dL (250-450)
[2017-04-08 06:52] VITALS: BP 89/50
[2017-04-08] MEDS: POLYETHYLENE GLYCOL 17 GM PACKET PO SCH (09:00)
[2017-04-08 09:06] LABS: COMPLEMENT C3 52 mg/dL (82-167); COMPLEMENT C4 10 mg/dL (14-44); COMPLEMENT TOTAL (CH50) 28 U/mL (42-60)
[2017-04-08] MEDS: PANTOPROZOLE 40MG TABLET PO SCH ×2 (09:12→20:43)
[2017-04-08] MEDS: DOXYCYCLINE 100MG TABLET PO SCH ×2 (09:12→20:43)
[2017-04-08] MEDS: MIDODRINE 5 MG TABLET PO SCH ×3 (09:12→20:44)
[2017-04-08] MEDS: SUCRALFATE 1 GM TABLET PO SCH ×4 (09:13→20:42)
[2017-04-08 13:05] VITALS: BP 90/32
[2017-04-08 14:07] LABS: PROTEINASE 3 (PR-3) AB <3.5 U/mL (0.0-3.5)
[2017-04-08 19:14] VITALS: BP 96/48
[2017-04-08] MEDS: FLUDROCORTISONE 0.1 MG TABLET PO SCH (20:43)
[2017-04-09] MEDS: PIPERACILLIN/TAZO/PMX 2.25GM 50 ML IV SCH ×3 (00:34→16:28)
[2017-04-09 00:58] VITALS: BP 93/56
[2017-04-09] MEDS: ALBUMIN HUMAN 25% 50 ML IV SCH ×3 (01:17→17:09)
[2017-04-09 05:35] LABS: ASPARTATE AMINO TRANSFERASE 14 U/L (15-37); BLOOD UREA NITROGEN 43 mg/dL (7-18)
[2017-04-09 05:44] LABS: HEMATOCRIT 24.8 % (39.2-51.8); HEMOGLOBIN 8.3 g/dL (13.7-18.0); WHITE BLOOD COUNT 5.4 x10^3/uL (3.4-10)
[2017-04-09 07:20] VITALS: BP 98/59
[2017-04-09] MEDS: MIDODRINE 5 MG TABLET PO SCH ×3 (08:47→20:46)
[2017-04-09] MEDS: DOXYCYCLINE 100MG TABLET PO SCH ×2 (08:47→20:46)
[2017-04-09] MEDS: PANTOPROZOLE 40MG TABLET PO SCH ×2 (08:47→20:46)
[2017-04-09] MEDS: FLUDROCORTISONE 0.1 MG TABLET PO SCH ×2 (08:48→20:46)
[2017-04-09] MEDS: POLYETHYLENE GLYCOL 17 GM PACKET PO SCH (08:48)
[2017-04-09] MEDS: SUCRALFATE 1 GM TABLET PO SCH ×4 (08:48→20:46)
[2017-04-09 10:07] LABS: COMPLEMENT C3 51 mg/dL (82-167); COMPLEMENT C4 9 mg/dL (14-44); INTERMYOFIBRILLAR AB Negative (Neg:<1:20); MITOCHONDRIAL (M2) AB 17.7 Units (0.0-20.0); PARIETAL CELL AB 40.4 Units (0.0-20.0); RA LATEX TURBIDITY 28.9 IU/mL (0.0-13.9); SARCOLEMMA AB Negative (Neg:<1:20); STRIATION AB Negative (Neg:<1:40); THYROID PEROXIDASE (TPO) AB 16 IU/mL (0-34)
[2017-04-09 14:07] LABS: A/G RATIO 1.3 (0.7-1.7); ALBUMIN 2.8 g/dL (2.9-4.4); ALPHA-1-GLOBULIN 0.2 g/dL (0.0-0.4); BETA GLOBULIN 0.5 g/dL (0.7-1.3); GAMMA GLOBULIN 1.2 g/dL (0.4-1.8)
[2017-04-09 20:00] VITALS: BP 112/51
[2017-04-10] MEDS: ALBUMIN HUMAN 25% 50 ML IV SCH ×3 (01:22→17:00)
[2017-04-10] MEDS: PIPERACILLIN/TAZO/PMX 2.25GM 50 ML IV SCH ×3 (01:22→17:12)
[2017-04-10 02:44] VITALS: BP 106/65
[2017-04-10 04:37] LABS: HEMATOCRIT 25.6 % (39.2-51.8); HEMOGLOBIN 8.5 g/dL (13.7-18.0); WHITE BLOOD COUNT 3.3 x10^3/uL (3.4-10)
[2017-04-10 04:49] LABS: BLOOD UREA NITROGEN 37 mg/dL (7-18)
[2017-04-10 04:53] LABS: ASPARTATE AMINO TRANSFERASE 20 U/L (15-37)
[2017-04-10 07:06] VITALS: BP 81/46
[2017-04-10] MEDS: PANTOPROZOLE 40MG TABLET PO SCH ×2 (08:00→20:05)
[2017-04-10] MEDS: DOXYCYCLINE 100MG TABLET PO SCH ×2 (08:00→20:05)
[2017-04-10] MEDS: MIDODRINE 5 MG TABLET PO SCH ×3 (08:01→20:05)
[2017-04-10] MEDS: FLUDROCORTISONE 0.1 MG TABLET PO SCH ×2 (08:01→20:05)
[2017-04-10] MEDS: SUCRALFATE 1 GM TABLET PO SCH ×4 (08:01→20:05)
[2017-04-10] MEDS: POLYETHYLENE GLYCOL 17 GM PACKET PO SCH (09:00)
[2017-04-10] MEDS: HYDROcodone/APAP 5/325 TABLET PO PRN (09:47)
[2017-04-10 13:52] VITALS: BP 110/51
[2017-04-10 19:23] VITALS: BP 94/57
[2017-04-11] MEDS: PIPERACILLIN/TAZO/PMX 2.25GM 50 ML IV SCH ×3 (01:35→20:32)
[2017-04-11 03:00] VITALS: BP 91/57
[2017-04-11] MEDS: ALBUMIN HUMAN 25% 50 ML IV SCH ×3 (03:40→21:38)
[2017-04-11 05:46] LABS: HEMATOCRIT 25.8 % (39.2-51.8); HEMOGLOBIN 8.5 g/dL (13.7-18.0); WHITE BLOOD COUNT 7.4 x10^3/uL (3.4-10)
[2017-04-11 06:24] LABS: ASPARTATE AMINO TRANSFERASE 25 U/L (15-37); BLOOD UREA NITROGEN 37 mg/dL (7-18)
[2017-04-11 06:55] VITALS: BP 110/67
[2017-04-11] MEDS: PANTOPROZOLE 40MG TABLET PO SCH ×2 (09:05→20:32)
[2017-04-11] MEDS: POLYETHYLENE GLYCOL 17 GM PACKET PO SCH (09:05)
[2017-04-11] MEDS: SUCRALFATE 1 GM TABLET PO SCH ×4 (09:06→20:32)
[2017-04-11] MEDS: FLUDROCORTISONE 0.1 MG TABLET PO SCH ×2 (09:06→20:32)
[2017-04-11] MEDS: DOXYCYCLINE 100MG TABLET PO SCH ×2 (09:06→20:32)
[2017-04-11] MEDS: MIDODRINE 5 MG TABLET PO SCH ×3 (09:06→20:33)
[2017-04-11 13:00] VITALS: BP 94/58
[2017-04-11] MEDS ORDERED: VANCOMYCIN PMX 1GM/200ML 200 ML IV ONE (13:00)
[2017-04-11 19:08] VITALS: BP 92/57
[2017-04-12 01:03] VITALS: BP_SYST 74; BP_SYST 77; BP_SYST 91; BP_DIAS 46; BP_DIAS 49; BP_DIAS 56
[2017-04-12] MEDS: PIPERACILLIN/TAZO/PMX 2.25GM 50 ML IV SCH ×3 (05:27→23:18)
[2017-04-12 06:15] LABS: HEMATOCRIT 25.8 % (39.2-51.8); HEMOGLOBIN 8.4 g/dL (13.7-18.0)
[2017-04-12] MEDS: ALBUMIN HUMAN 25% 50 ML IV SCH ×3 (06:15→23:18)
[2017-04-12 06:27] LABS: ASPARTATE AMINO TRANSFERASE 24 U/L (15-37); BLOOD UREA NITROGEN 36 mg/dL (7-18)
[2017-04-12 06:45] LABS: DIFF TOTAL CELLS COUNTED 100 CELL DIFF
[2017-04-12 06:52] LABS: VERIFY COUNTS? YES
[2017-04-12 07:38] VITALS: BP 92/56
[2017-04-12] MEDS: POLYETHYLENE GLYCOL 17 GM PACKET PO SCH (08:42)
[2017-04-12] MEDS: PANTOPROZOLE 40MG TABLET PO SCH ×2 (08:43→23:19)
[2017-04-12] MEDS: MIDODRINE 5 MG TABLET PO SCH ×3 (08:43→23:19)
[2017-04-12] MEDS: DOXYCYCLINE 100MG TABLET PO SCH ×2 (08:43→23:19)
[2017-04-12] MEDS: FLUDROCORTISONE 0.1 MG TABLET PO SCH ×2 (08:43→23:19)
[2017-04-12] MEDS: SUCRALFATE 1 GM TABLET PO SCH ×4 (08:43→23:19)
[2017-04-12] MEDS: HYDROcodone/APAP 5/325 TABLET PO PRN (08:46)
[2017-04-12 12:30] VITALS: BP 103/60
[2017-04-12 20:00] VITALS: BP 115/49
[2017-04-12 23:20] VITALS: BP 75/48
[2017-04-13 03:00] VITALS: BP 94/46
[2017-04-13 04:23] LABS: ASPARTATE AMINO TRANSFERASE 20 U/L (15-37); BLOOD UREA NITROGEN 33 mg/dL (7-18)
[2017-04-13 04:51] LABS: HEMATOCRIT 25.4 % (39.2-51.8); HEMOGLOBIN 8.4 g/dL (13.7-18.0); WHITE BLOOD COUNT 5.9 x10^3/uL (3.4-10)
[2017-04-13 05:45] LABS: OCCBLD OBC PASS
[2017-04-13 06:11] LABS: DIFF TOTAL CELLS COUNTED 100 CELL DIFF
[2017-04-13 06:26] LABS: VERIFY COUNTS? YES
[2017-04-13] MEDS: ALBUMIN HUMAN 25% 50 ML IV SCH ×3 (07:30→23:17)
[2017-04-13 07:53] VITALS: BP 103/54
[2017-04-13] MEDS: SUCRALFATE 1 GM TABLET PO SCH ×4 (08:46→21:04)
[2017-04-13] MEDS: FLUDROCORTISONE 0.1 MG TABLET PO SCH ×2 (08:46→21:04)
[2017-04-13] MEDS: MIDODRINE 5 MG TABLET PO SCH ×3 (08:47→21:04)
[2017-04-13] MEDS: ALBUMIN HUMAN 25% 50 ML IV PRN (08:47)
[2017-04-13] MEDS: PIPERACILLIN/TAZO/PMX 2.25GM 50 ML IV SCH ×3 (08:47→23:17)
[2017-04-13] MEDS: POLYETHYLENE GLYCOL 17 GM PACKET PO SCH (08:47)
[2017-04-13] MEDS: PANTOPROZOLE 40MG TABLET PO SCH ×2 (08:51→21:04)
[2017-04-13] MEDS ORDERED: VANCOMYCIN PMX 1GM/200ML 200 ML IV ONE ×2 (12:00→17:00)
[2017-04-13 12:35] VITALS: BP 100/64
[2017-04-13 19:22] VITALS: BP 113/65
[2017-04-13] MEDS ORDERED: ACETAMINOPHEN 325 MG TABLET PO PRN (19:30)
[2017-04-13] MEDS ORDERED: VANCOMYCIN PER PHARMACY MC PRN (19:30)
[2017-04-13] MEDS ORDERED: morphine SULFATE 10 MG/ML, 1ML IVPush PRN (19:30)
[2017-04-13] MEDS ORDERED: PHARMACOKINETIC MONITORING MC PRN (19:30)
[2017-04-13] MEDS ORDERED: PHARMACY INSTRUCTION MC SCH (19:30)
[2017-04-13] MEDS ORDERED: ONDANSETRON 2MG/ML, 2ML IVPush PRN (19:30)
[2017-04-13] MEDS ORDERED: hydrALAzine 20 MG/ML, 1ML IVPush PRN (19:30)
[2017-04-14 01:54] VITALS: BP 126/74
[2017-04-14 02:40] VITALS: BP 152/67
[2017-04-14 04:16] LABS: HEMATOCRIT 25.3 % (39.2-51.8); HEMOGLOBIN 8.3 g/dL (13.7-18.0); WHITE BLOOD COUNT 5.9 x10^3/uL (3.4-10)
[2017-04-14 04:20] LABS: ASPARTATE AMINO TRANSFERASE 15 U/L (15-37); BLOOD UREA NITROGEN 41 mg/dL (7-18)
[2017-04-14 07:47] VITALS: BP 94/57
[2017-04-14] MEDS: POLYETHYLENE GLYCOL 17 GM PACKET PO SCH (09:00)
[2017-04-14] MEDS: ALBUMIN HUMAN 25% 50 ML IV SCH ×3 (09:06→23:56)
[2017-04-14] MEDS: SUCRALFATE 1 GM TABLET PO SCH ×4 (09:07→21:02)
[2017-04-14] MEDS: MIDODRINE 5 MG TABLET PO SCH ×3 (09:07→21:02)
[2017-04-14] MEDS: FLUDROCORTISONE 0.1 MG TABLET PO SCH ×2 (09:07→21:02)
[2017-04-14] MEDS: PANTOPROZOLE 40MG TABLET PO SCH ×2 (09:07→21:02)
[2017-04-14] MEDS: PIPERACILLIN/TAZO/PMX 2.25GM 50 ML IV SCH ×2 (10:01→21:02)
[2017-04-14 13:12] VITALS: BP 118/72
[2017-04-14 20:40] VITALS: BP 152/67
[2017-04-14] MEDS: HYDROcodone/APAP 5/325 TABLET PO PRN (21:02)
[2017-04-15] VITALS: BP 107/62
[2017-04-15] MEDS: PIPERACILLIN/TAZO/PMX 2.25GM 50 ML IV SCH ×3 (04:59→21:04)
[2017-04-15 05:35] LABS: HEMATOCRIT 24.8 % (39.2-51.8); HEMOGLOBIN 8.2 g/dL (13.7-18.0); WHITE BLOOD COUNT 4.9 x10^3/uL (3.4-10)
[2017-04-15 05:44] LABS: BLOOD UREA NITROGEN 37 mg/dL (7-18)
[2017-04-15 07:10] VITALS: BP 96/59
[2017-04-15] MEDS: POLYETHYLENE GLYCOL 17 GM PACKET PO SCH (09:09)
[2017-04-15] MEDS: ALBUMIN HUMAN 25% 50 ML IV SCH ×3 (09:12→19:07)
[2017-04-15] MEDS: SUCRALFATE 1 GM TABLET PO SCH ×4 (09:13→21:05)
[2017-04-15] MEDS: PANTOPROZOLE 40MG TABLET PO SCH ×2 (09:13→21:05)
[2017-04-15] MEDS: FLUDROCORTISONE 0.1 MG TABLET PO SCH ×2 (09:14→21:05)
[2017-04-15] MEDS: MIDODRINE 5 MG TABLET PO SCH ×3 (09:14→21:05)
[2017-04-15 13:13] VITALS: BP 101/58
[2017-04-15 16:30] LABS: HEMATOCRIT 25.4 % (39.2-51.8); HEMOGLOBIN 8.4 g/dL (13.7-18.0)
[2017-04-15 20:10] VITALS: BP 102/65
[2017-04-16] MEDS: ALBUMIN HUMAN 25% 50 ML IV SCH ×2 (02:35→12:11)
[2017-04-16] MEDS: PIPERACILLIN/TAZO/PMX 2.25GM 50 ML IV SCH ×3 (05:25→20:36)
[2017-04-16 08:19] LABS: BLOOD UREA NITROGEN 34 mg/dL (7-18)
[2017-04-16 08:25] LABS: HEMATOCRIT 25.4 % (39.2-51.8); HEMOGLOBIN 8.3 g/dL (13.7-18.0); WHITE BLOOD COUNT 5.8 x10^3/uL (3.4-10)
[2017-04-16] MEDS: POLYETHYLENE GLYCOL 17 GM PACKET PO SCH (09:00)
[2017-04-16] MEDS: SUCRALFATE 1 GM TABLET PO SCH ×4 (11:00→20:36)
[2017-04-16] MEDS: MIDODRINE 5 MG TABLET PO SCH ×3 (12:12→20:36)
[2017-04-16] MEDS: PANTOPROZOLE 40MG TABLET PO SCH ×2 (12:12→20:36)
[2017-04-16] MEDS: FLUDROCORTISONE 0.1 MG TABLET PO SCH ×2 (12:12→20:36)
[2017-04-16 13:18] VITALS: BP 108/57
[2017-04-16 14:05] LABS: DIFF TOTAL CELLS COUNTED 100 CELL DIFF
[2017-04-16 14:07] LABS: ANISOCYTOSIS 2+
[2017-04-16 14:08] LABS: SCHISTOCYTES 1+; VERIFY COUNTS? YES
[2017-04-16] MEDS: HYDROcodone/APAP 5/325 TABLET PO PRN (20:36)
[2017-04-16 20:44] VITALS: BP 94/55
[2017-04-17 02:00] VITALS: BP 96/57
[2017-04-17] MEDS: PIPERACILLIN/TAZO/PMX 2.25GM 50 ML IV SCH ×3 (05:46→20:24)
[2017-04-17 06:20] LABS: BLOOD UREA NITROGEN 31 mg/dL (7-18); HEMOGLOBIN 8.3 g/dL (13.7-18.0); WHITE BLOOD COUNT 5.5 x10^3/uL (3.4-10)
[2017-04-17 07:23] VITALS: BP 90/50
[2017-04-17] MEDS ORDERED: POTASSIUM CHLORIDE 20 MEQ TAB.ER.PRT PO ONE (08:30)
[2017-04-17] MEDS: ALBUMIN HUMAN 25% 50 ML IV SCH ×4 (08:53→23:29)
[2017-04-17] MEDS: MIDODRINE 5 MG TABLET PO SCH ×3 (08:53→20:25)
[2017-04-17] MEDS: PANTOPROZOLE 40MG TABLET PO SCH ×2 (08:54→20:25)
[2017-04-17] MEDS: SUCRALFATE 1 GM TABLET PO SCH ×4 (08:54→20:25)
[2017-04-17] MEDS: FLUDROCORTISONE 0.1 MG TABLET PO SCH ×2 (08:54→20:25)
[2017-04-17] MEDS: POLYETHYLENE GLYCOL 17 GM PACKET PO SCH (08:54)
[2017-04-17 09:58] LABS: FIBRINOGEN < 50 mg/dL (200-340)
[2017-04-17 14:32] VITALS: BP 99/62
[2017-04-17 17:36] LABS: LACTATE DEHYDROGENASE 288 U/L (87-241)
[2017-04-17 20:53] VITALS: BP 99/63
[2017-04-18 01:13] VITALS: BP 109/63
[2017-04-18] MEDS: PIPERACILLIN/TAZO/PMX 2.25GM 50 ML IV SCH ×3 (04:47→21:26)
[2017-04-18 05:48] LABS: BLOOD UREA NITROGEN 38 mg/dL (7-18)
[2017-04-18 05:50] LABS: HEMOGLOBIN 8.3 g/dL (13.7-18.0)
[2017-04-18 05:52] LABS: ASPARTATE AMINO TRANSFERASE 16 U/L (15-37); LACTATE DEHYDROGENASE 294 U/L (87-241)
[2017-04-18] MEDS: SUCRALFATE 1 GM TABLET PO SCH ×4 (07:00→21:26)
[2017-04-18 07:04] LABS: PTT 51 Seconds (25-31)
[2017-04-18 07:09] VITALS: BP 103/63
[2017-04-18 07:14] LABS: FIBRINOGEN < 50 mg/dL (200-340)
[2017-04-18] MEDS: POLYETHYLENE GLYCOL 17 GM PACKET PO SCH (09:00)
[2017-04-18] MEDS: PANTOPROZOLE 40MG TABLET PO SCH ×2 (12:41→21:26)
[2017-04-18] MEDS: MIDODRINE 5 MG TABLET PO SCH ×3 (12:41→21:26)
[2017-04-18] MEDS: ALBUMIN HUMAN 25% 50 ML IV SCH ×2 (12:42→20:18)
[2017-04-18] MEDS: FLUDROCORTISONE 0.1 MG TABLET PO SCH ×2 (12:42→21:26)
[2017-04-18 13:23] VITALS: BP 111/67
[2017-04-18 19:33] VITALS: BP 106/63
[2017-04-19] MEDS: KETOCONAZOLE CRM 2%, 15GM TP SCH ×3 (01:23→22:01)
[2017-04-19 01:31] LABS: HEMATOCRIT 25.5 % (39.2-51.8); HEMOGLOBIN 8.4 g/dL (13.7-18.0)
[2017-04-19 01:51] VITALS: BP 92/56
[2017-04-19] MEDS: ALBUMIN HUMAN 25% 50 ML IV SCH ×3 (04:50→22:00)
[2017-04-19] MEDS: PIPERACILLIN/TAZO/PMX 2.25GM 50 ML IV SCH ×3 (05:26→23:00)
[2017-04-19 06:49] LABS: BLOOD UREA NITROGEN 31 mg/dL (7-18)
[2017-04-19 07:01] LABS: ASPARTATE AMINO TRANSFERASE 15 U/L (15-37)
[2017-04-19 07:25] LABS: PTT 54 Seconds (25-31)
[2017-04-19 07:27] LABS: FIBRINOGEN < 50 mg/dL (200-340)
[2017-04-19 07:36] LABS: HEMATOCRIT 24.7 % (39.2-51.8); HEMOGLOBIN 8.1 g/dL (13.7-18.0); WHITE BLOOD COUNT 5.5 x10^3/uL (3.4-10)
[2017-04-19 07:43] LABS: ANISOCYTOSIS 2+; OVALOCYTES 1+; POIKILOCYTOSIS 1+
[2017-04-19 07:44] LABS: POLYCHROMASIA 1+; SCHISTOCYTES 1+
[2017-04-19 08:32] VITALS: BP 102/64
[2017-04-19] MEDS: POLYETHYLENE GLYCOL 17 GM PACKET PO SCH (09:00)
[2017-04-19] MEDS: SUCRALFATE 1 GM TABLET PO SCH ×4 (09:22→22:01)
[2017-04-19] MEDS: MIDODRINE 5 MG TABLET PO SCH ×3 (09:22→23:00)
[2017-04-19] MEDS: PANTOPROZOLE 40MG TABLET PO SCH ×2 (09:22→22:01)
[2017-04-19] MEDS: FLUDROCORTISONE 0.1 MG TABLET PO SCH ×2 (09:23→22:01)
[2017-04-19 14:07] VITALS: BP 113/68
[2017-04-19 20:00] VITALS: BP 95/57
[2017-04-19 22:14] LABS: HIT LOT CART23835/KIT23844
[2017-04-19 23:54] LABS: HIT OBC PASS; HIT RESULT POSITIVE (NEGATIVE)
[2017-04-20 03:30] VITALS: BP 90/51
[2017-04-20] MEDS: ALBUMIN HUMAN 25% 50 ML IV SCH ×3 (05:14→21:16)
[2017-04-20 05:28] LABS: HEMATOCRIT 24.7 % (39.2-51.8); HEMOGLOBIN 8.1 g/dL (13.7-18.0); WHITE BLOOD COUNT 4.3 x10^3/uL (3.4-10)
[2017-04-20 05:31] LABS: BLOOD UREA NITROGEN 37 mg/dL (7-18)
[2017-04-20 05:44] LABS: ASPARTATE AMINO TRANSFERASE 15 U/L (15-37)
[2017-04-20] MEDS: PIPERACILLIN/TAZO/PMX 2.25GM 50 ML IV SCH (06:43)
[2017-04-20 08:01] VITALS: BP 106/62
[2017-04-20] MEDS: POLYETHYLENE GLYCOL 17 GM PACKET PO SCH (09:00)
[2017-04-20] MEDS: SUCRALFATE 1 GM TABLET PO SCH ×4 (09:05→21:16)
[2017-04-20] MEDS: PANTOPROZOLE 40MG TABLET PO SCH ×2 (09:06→21:16)
[2017-04-20] MEDS: MIDODRINE 5 MG TABLET PO SCH ×3 (09:06→21:17)
[2017-04-20] MEDS: KETOCONAZOLE CRM 2%, 15GM TP SCH ×2 (09:06→21:16)
[2017-04-20] MEDS: FLUDROCORTISONE 0.1 MG TABLET PO SCH ×2 (09:06→21:16)
[2017-04-20 12:53] LABS: PROTIME 21.3 Seconds (9.6-11.5)
[2017-04-20] MEDS ORDERED: hydrALAzine 20 MG/ML, 1ML IVPush PRN (14:00)
[2017-04-20] MEDS ORDERED: ONDANSETRON 2MG/ML, 2ML IVPush PRN (14:00)
[2017-04-20] MEDS ORDERED: PHARMACY INSTRUCTION MC SCH (14:00)
[2017-04-20] MEDS ORDERED: ACETAMINOPHEN 325 MG TABLET PO PRN (14:00)
[2017-04-20 17:44] VITALS: BP 101/62
[2017-04-20 20:12] VITALS: BP 102/62
[2017-04-21 02:15] VITALS: BP 91/58
[2017-04-21] MEDS: ALBUMIN HUMAN 25% 50 ML IV SCH ×3 (05:26→20:45)
[2017-04-21 06:26] LABS: ASPARTATE AMINO TRANSFERASE 16 U/L (15-37); BLOOD UREA NITROGEN 45 mg/dL (7-18)
[2017-04-21 06:59] LABS: PROTIME 21.3 Seconds (9.6-11.5)
[2017-04-21 07:39] VITALS: BP 91/50
[2017-04-21] MEDS: KETOCONAZOLE CRM 2%, 15GM TP SCH ×2 (08:14→21:00)
[2017-04-21] MEDS: SUCRALFATE 1 GM TABLET PO SCH ×4 (08:15→23:09)
[2017-04-21] MEDS: FLUDROCORTISONE 0.1 MG TABLET PO SCH ×2 (08:15→23:09)
[2017-04-21] MEDS: POLYETHYLENE GLYCOL 17 GM PACKET PO SCH (08:15)
[2017-04-21] MEDS: PANTOPROZOLE 40MG TABLET PO SCH ×2 (08:15→23:10)
[2017-04-21] MEDS: MIDODRINE 5 MG TABLET PO SCH ×3 (08:15→23:10)
[2017-04-21 18:43] VITALS: BP 97/52
[2017-04-21] MEDS: ALBUMIN HUMAN 25% 50 ML IV PRN ×2 (20:58→20:59)
[2017-04-22 03:30] VITALS: BP 95/58
[2017-04-22] MEDS: ALBUMIN HUMAN 25% 50 ML IV SCH ×3 (04:50→21:07)
[2017-04-22 05:12] LABS: BLOOD UREA NITROGEN 30 mg/dL (7-18)
[2017-04-22 07:00] VITALS: BP 95/59
[2017-04-22 08:30] LABS: HEMATOCRIT 23.3 % (39.2-51.8); HEMOGLOBIN 7.8 g/dL (13.7-18.0); WHITE BLOOD COUNT 5.3 x10^3/uL (3.4-10)
[2017-04-22] MEDS: PANTOPROZOLE 40MG TABLET PO SCH ×2 (08:48→21:46)
[2017-04-22] MEDS: MIDODRINE 5 MG TABLET PO SCH ×3 (08:48→21:46)
[2017-04-22] MEDS: FLUDROCORTISONE 0.1 MG TABLET PO SCH ×2 (08:48→21:46)
[2017-04-22] MEDS: KETOCONAZOLE CRM 2%, 15GM TP SCH ×2 (08:48→21:46)
[2017-04-22] MEDS: SUCRALFATE 1 GM TABLET PO SCH ×4 (08:48→21:46)
[2017-04-22 08:57] LABS: PROTIME 21.3 Seconds (9.6-11.5)
[2017-04-22] MEDS: POLYETHYLENE GLYCOL 17 GM PACKET PO SCH (09:00)
[2017-04-22 09:26] LABS: ANISOCYTOSIS 2+; OVALOCYTES 1+; POLYCHROMASIA 1+; SCHISTOCYTES 1+
[2017-04-22 14:19] VITALS: BP 97/51
[2017-04-22 19:48] VITALS: BP 95/58
[2017-04-23 01:15] VITALS: BP 94/58
[2017-04-23] MEDS: ALBUMIN HUMAN 25% 50 ML IV SCH ×3 (04:42→21:14)
[2017-04-23 05:34] LABS: HEMATOCRIT 23.7 % (39.2-51.8); HEMOGLOBIN 7.9 g/dL (13.7-18.0); WHITE BLOOD COUNT 4.8 x10^3/uL (3.4-10)
[2017-04-23 05:36] LABS: ASPARTATE AMINO TRANSFERASE 22 U/L (15-37); BLOOD UREA NITROGEN 41 mg/dL (7-18)
[2017-04-23 05:59] LABS: PROTIME 21.3 Seconds (9.6-11.5)
[2017-04-23] MEDS: FLUDROCORTISONE 0.1 MG TABLET PO SCH ×2 (08:02→23:16)
[2017-04-23] MEDS: KETOCONAZOLE CRM 2%, 15GM TP SCH ×2 (08:02→23:16)
[2017-04-23] MEDS: SUCRALFATE 1 GM TABLET PO SCH ×4 (08:02→23:15)
[2017-04-23] MEDS: MIDODRINE 5 MG TABLET PO SCH ×3 (08:03→23:15)
[2017-04-23] MEDS: PANTOPROZOLE 40MG TABLET PO SCH ×2 (08:03→23:15)
[2017-04-23] MEDS: POLYETHYLENE GLYCOL 17 GM PACKET PO SCH (08:03)
[2017-04-23 08:11] VITALS: BP 99/45
[2017-04-23 17:49] VITALS: BP 99/54
[2017-04-23 18:33] VITALS: BP 109/50
[2017-04-24 01:00] VITALS: BP 99/45
[2017-04-24] MEDS: ALBUMIN HUMAN 25% 50 ML IV SCH ×3 (05:00→22:10)
[2017-04-24 05:09] LABS: HEMATOCRIT 23.7 % (39.2-51.8); HEMOGLOBIN 7.9 g/dL (13.7-18.0)
[2017-04-24 05:30] LABS: HIV 1&2 ANTIBODY SCREEN Nonreactive (Nonreactive); HIV-1 p24 ANTIGEN Nonreactive (Nonreactive); PROTIME 20.4 Seconds (9.6-11.5)
[2017-04-24 05:33] LABS: ASPARTATE AMINO TRANSFERASE 23 U/L (15-37); BLOOD UREA NITROGEN 31 mg/dL (7-18)
[2017-04-24] MEDS: SUCRALFATE 1 GM TABLET PO SCH ×4 (07:00→21:00)
[2017-04-24 07:38] VITALS: BP 107/46
[2017-04-24] MEDS: FLUDROCORTISONE 0.1 MG TABLET PO SCH ×2 (08:55→22:08)
[2017-04-24] MEDS: PHYTONADIONE 5 MG TABLET PO SCH (08:57)
[2017-04-24] MEDS: PANTOPROZOLE 40MG TABLET PO SCH ×2 (08:58→22:08)
[2017-04-24] MEDS: KETOCONAZOLE CRM 2%, 15GM TP SCH ×2 (08:58→22:09)
[2017-04-24] MEDS: MIDODRINE 5 MG TABLET PO SCH ×3 (08:58→22:08)
[2017-04-24] MEDS: POLYETHYLENE GLYCOL 17 GM PACKET PO SCH (09:00)
[2017-04-24] MEDS: IMMUNE GLOBULIN 50 GM in VIAL 0 EACH IV SCH (11:39)
[2017-04-24 13:53] VITALS: BP 100/45
[2017-04-24 20:18] VITALS: BP 113/57
[2017-04-25 00:35] VITALS: BP 114/52
[2017-04-25 05:07] LABS: SRA, LOW DOSE HEPARIN 4 % (0-20)
[2017-04-25] MEDS: ALBUMIN HUMAN 25% 50 ML IV SCH ×2 (06:09→17:29)
[2017-04-25 06:19] LABS: HEMOGLOBIN 7.6 g/dL (13.7-18.0); WHITE BLOOD COUNT 3.3 x10^3/uL (3.4-10)
[2017-04-25 06:22] LABS: BLOOD UREA NITROGEN 43 mg/dL (7-18)
[2017-04-25 06:33] VITALS: BP 145/55
[2017-04-25 06:51] LABS: ANISOCYTOSIS 2+; OVALOCYTES 1+; POLYCHROMASIA 1+; SCHISTOCYTES 1+
[2017-04-25 06:52] LABS: ECHINOCYTES 1+
[2017-04-25] MEDS: SUCRALFATE 1 GM TABLET PO SCH ×4 (07:00→21:00)
[2017-04-25] MEDS: HYDROcodone/APAP 5/325 TABLET PO PRN (08:25)
[2017-04-25] MEDS: POLYETHYLENE GLYCOL 17 GM PACKET PO SCH (09:00)
[2017-04-25] MEDS: FLUDROCORTISONE 0.1 MG TABLET PO SCH ×2 (09:14→21:49)
[2017-04-25 09:15] VITALS: BP 97/49
[2017-04-25] MEDS: PANTOPROZOLE 40MG TABLET PO SCH ×2 (09:15→21:50)
[2017-04-25] MEDS: MIDODRINE 5 MG TABLET PO SCH ×3 (09:15→21:49)
[2017-04-25] MEDS: PHYTONADIONE 5 MG TABLET PO SCH (09:16)
[2017-04-25] MEDS: KETOCONAZOLE CRM 2%, 15GM TP SCH ×2 (09:16→21:50)
[2017-04-25] MEDS: IMMUNE GLOBULIN 50 GM in VIAL 0 EACH IV SCH (10:51)
[2017-04-25] MEDS: POTASSIUM CHLORIDE 20 MEQ TAB.ER.PRT PO SCH (12:26)
[2017-04-25 14:16] LABS: DILUTE RUSSELL'S VIPER VENOM 55.2 sec (0.0-47.0); INR(REF) 2.1 (0.9-1.1); PT 21.6 sec (9.6-11.5); THROMBIN NEUTRALIZATION 42.5 sec (0.0-23.0); aPTT 47.4 sec (22.9-30.2)
[2017-04-25 16:00] VITALS: BP 121/58
[2017-04-25 17:15] LABS: PROTIME 19.5 Seconds (9.6-11.5)
[2017-04-25 21:15] VITALS: BP 96/49
[2017-04-26] MEDS: ALBUMIN HUMAN 25% 50 ML IV SCH ×3 (00:52→17:36)
[2017-04-26 01:30] VITALS: BP 117/52
[2017-04-26 06:06] LABS: HEMOGLOBIN 7.6 g/dL (13.7-18.0); WHITE BLOOD COUNT 4.1 x10^3/uL (3.4-10)
[2017-04-26 06:09] LABS: HEMATOCRIT 22.9 % (39.2-51.8)
[2017-04-26 06:20] LABS: BLOOD UREA NITROGEN 30 mg/dL (7-18)
[2017-04-26 06:46] LABS: DIFF TOTAL CELLS COUNTED 100 CELL DIFF
[2017-04-26 06:53] LABS: ANISOCYTOSIS 2+; HYPOCHROMIA 1+; POIKILOCYTOSIS 1+
[2017-04-26 06:54] LABS: OVALOCYTES 1+; SCHISTOCYTES 1+; VERIFY COUNTS? YES
[2017-04-26] MEDS: SUCRALFATE 1 GM TABLET PO SCH ×4 (07:00→22:51)
[2017-04-26 07:24] VITALS: BP 129/52
[2017-04-26] MEDS: POLYETHYLENE GLYCOL 17 GM PACKET PO SCH (09:00)
[2017-04-26] MEDS: MIDODRINE 5 MG TABLET PO SCH ×3 (10:01→22:51)
[2017-04-26] MEDS: PANTOPROZOLE 40MG TABLET PO SCH ×2 (10:02→22:51)
[2017-04-26] MEDS: PHYTONADIONE 5 MG TABLET PO SCH (10:02)
[2017-04-26] MEDS: FLUDROCORTISONE 0.1 MG TABLET PO SCH ×2 (10:02→22:51)
[2017-04-26] MEDS: POTASSIUM CHLORIDE 20 MEQ TAB.ER.PRT PO SCH (10:02)
[2017-04-26] MEDS: KETOCONAZOLE CRM 2%, 15GM TP SCH ×2 (10:03→22:51)
[2017-04-26 11:04] LABS: PROTIME 19.2 Seconds (9.6-11.5)
[2017-04-26] MEDS: IMMUNE GLOBULIN 50 GM in VIAL 0 EACH IV SCH (11:19)
[2017-04-26 12:34] VITALS: BP 123/61
[2017-04-26] MEDS: DARBEPOETIN 100 MCG/ML SQ SCH (14:05)
[2017-04-26 19:00] VITALS: BP 108/52
[2017-04-27 00:45] VITALS: BP 105/50
[2017-04-27] MEDS: ALBUMIN HUMAN 25% 50 ML IV SCH ×2 (01:34→16:07)
[2017-04-27 06:29] LABS: HEMOGLOBIN 7.5 g/dL (13.7-18.0); WHITE BLOOD COUNT 3.6 x10^3/uL (3.4-10)
[2017-04-27 06:30] LABS: ASPARTATE AMINO TRANSFERASE 19 U/L (15-37); BLOOD UREA NITROGEN 43 mg/dL (7-18); HEMATOCRIT 22.2 % (39.2-51.8)
[2017-04-27 07:02] LABS: DIFF TOTAL CELLS COUNTED 100 CELL DIFF
[2017-04-27 07:40] LABS: ANISOCYTOSIS 2+; OVALOCYTES 1+; VERIFY COUNTS? YES
[2017-04-27 07:41] LABS: POLYCHROMASIA 1+; SCHISTOCYTES 1+
[2017-04-27 08:44] VITALS: BP 100/53
[2017-04-27] MEDS: POLYETHYLENE GLYCOL 17 GM PACKET PO SCH (09:00)
[2017-04-27] MEDS: MIDODRINE 5 MG TABLET PO SCH ×3 (09:37→21:50)
[2017-04-27] MEDS: PHYTONADIONE 5 MG TABLET PO SCH (09:37)
[2017-04-27] MEDS: FLUDROCORTISONE 0.1 MG TABLET PO SCH ×2 (09:37→21:50)
[2017-04-27] MEDS: POTASSIUM CHLORIDE 20 MEQ TAB.ER.PRT PO SCH (09:37)
[2017-04-27] MEDS: PANTOPROZOLE 40MG TABLET PO SCH ×2 (09:37→21:51)
[2017-04-27] MEDS: SUCRALFATE 1 GM TABLET PO SCH ×4 (09:38→21:50)
[2017-04-27] MEDS: IMMUNE GLOBULIN 50 GM in VIAL 0 EACH IV SCH (09:38)
[2017-04-27] MEDS: KETOCONAZOLE CRM 2%, 15GM TP SCH ×2 (13:39→21:51)
[2017-04-27 13:48] VITALS: BP 111/55
[2017-04-27 16:06] LABS: INTERPRETATION Note (.)
[2017-04-27 20:41] VITALS: BP 123/65
[2017-04-28] MEDS: ALBUMIN HUMAN 25% 50 ML IV SCH ×3 (00:19→21:37)
[2017-04-28 01:10] VITALS: BP 123/63
[2017-04-28] MEDS: HYDROcodone/APAP 5/325 TABLET PO PRN (01:14)
[2017-04-28 06:18] LABS: HEMOGLOBIN 7.2 g/dL (13.7-18.0); WHITE BLOOD COUNT 3.7 x10^3/uL (3.4-10)
[2017-04-28 06:20] LABS: HEMATOCRIT 21.6 % (39.2-51.8)
[2017-04-28] MEDS: SUCRALFATE 1 GM TABLET PO SCH ×4 (07:21→20:44)
[2017-04-28 07:32] VITALS: BP 104/57
[2017-04-28] MEDS: PHYTONADIONE 5 MG TABLET PO SCH (08:32)
[2017-04-28] MEDS: POTASSIUM CHLORIDE 20 MEQ TAB.ER.PRT PO SCH (08:32)
[2017-04-28] MEDS: PANTOPROZOLE 40MG TABLET PO SCH ×2 (08:33→20:44)
[2017-04-28] MEDS: FLUDROCORTISONE 0.1 MG TABLET PO SCH ×2 (08:33→20:44)
[2017-04-28] MEDS: POLYETHYLENE GLYCOL 17 GM PACKET PO SCH (08:33)
[2017-04-28] MEDS: MIDODRINE 5 MG TABLET PO SCH ×3 (08:33→20:44)
[2017-04-28 08:51] LABS: PROTIME 16.4 Seconds (9.6-11.5)
[2017-04-28] MEDS ORDERED: IMMUNE GLOBULIN 50 GM in VIAL 0 EACH IV ONE (12:00)
[2017-04-28 13:06] LABS: ALBUMIN 4.1 g/dL (2.9-4.4); ALPHA-1-GLOBULIN 0.1 g/dL (0.0-0.4); BETA GLOBULIN 0.4 g/dL (0.7-1.3); GAMMA GLOBULIN 0.7 g/dL (0.4-1.8); IMMUNOGLOBULIN A 185 mg/dL (90-386); IMMUNOGLOBULIN G 673 mg/dL (700-1600); IMMUNOGLOBULIN M 137 mg/dL (20-172); PROTEIN TOTAL 5.5 g/dL (6.0-8.5)
[2017-04-28] MEDS: KETOCONAZOLE CRM 2%, 15GM TP SCH ×2 (14:54→20:45)
[2017-04-28 15:51] VITALS: BP 103/43
[2017-04-28 20:43] VITALS: BP 114/53
[2017-04-28 21:18] VITALS: BP 118/63
[2017-04-28 21:21] VITALS: BP 113/48
[2017-04-29 02:51] VITALS: BP 114/42
[2017-04-29] MEDS: ALBUMIN HUMAN 25% 50 ML IV SCH ×3 (05:18→23:00)
[2017-04-29 07:02] LABS: PROTIME 16.2 Seconds (9.6-11.5)
[2017-04-29 07:20] VITALS: BP 100/64
[2017-04-29 08:07] LABS: DILUTE PROTHROMBIN TIME (DPT) 68.1 sec (0.0-55.0); DILUTE RUSSELL'S VIPER VENOM 56.8 sec (0.0-47.0); PTT-LA 56.7 sec (0.0-51.9)
[2017-04-29] MEDS: POLYETHYLENE GLYCOL 17 GM PACKET PO SCH (09:00)
[2017-04-29] MEDS: KETOCONAZOLE CRM 2%, 15GM TP SCH ×2 (09:00→21:00)
[2017-04-29] MEDS: MIDODRINE 5 MG TABLET PO SCH ×3 (09:26→20:59)
[2017-04-29] MEDS: SUCRALFATE 1 GM TABLET PO SCH ×4 (09:26→20:59)
[2017-04-29 09:28] LABS: HEMOGLOBIN 7.1 g/dL (13.7-18.0); WHITE BLOOD COUNT 2.6 x10^3/uL (3.4-10)
[2017-04-29 09:35] LABS: BLOOD UREA NITROGEN 44 mg/dL (7-18)
[2017-04-29 12:12] VITALS: BP 99/49
[2017-04-29] MEDS: PANTOPROZOLE 40MG TABLET PO SCH ×2 (14:43→20:59)
[2017-04-29] MEDS: POTASSIUM CHLORIDE 20 MEQ TAB.ER.PRT PO SCH (14:44)
[2017-04-29] MEDS: PHYTONADIONE 5 MG TABLET PO SCH (14:44)
[2017-04-29] MEDS: FLUDROCORTISONE 0.1 MG TABLET PO SCH ×2 (14:44→21:00)
[2017-04-29 18:49] VITALS: BP 96/40
[2017-04-30] VITALS (13 sets, daily range): BP systolic 94–115; BP diastolic 46–63
[2017-04-30 03:48] LABS: ASPARTATE AMINO TRANSFERASE 21 U/L (15-37); BLOOD UREA NITROGEN 37 mg/dL (7-18); HEMATOCRIT 23.1 % (39.2-51.8); HEMOGLOBIN 7.8 g/dL (13.7-18.0); WHITE BLOOD COUNT 3.1 x10^3/uL (3.4-10)
[2017-04-30 03:53] LABS: PROTIME 16.9 Seconds (9.6-11.5)
[2017-04-30] MEDS: POTASSIUM CHLORIDE 20 MEQ TAB.ER.PRT PO SCH (08:07)
[2017-04-30] MEDS: ALBUMIN HUMAN 25% 50 ML IV SCH ×3 (08:07→16:00)
[2017-04-30] MEDS: FLUDROCORTISONE 0.1 MG TABLET PO SCH ×2 (08:07→20:17)
[2017-04-30] MEDS: PHYTONADIONE 5 MG TABLET PO SCH (08:08)
[2017-04-30] MEDS: SUCRALFATE 1 GM TABLET PO SCH ×4 (08:08→20:18)
[2017-04-30] MEDS: POLYETHYLENE GLYCOL 17 GM PACKET PO SCH (08:08)
[2017-04-30] MEDS: PANTOPROZOLE 40MG TABLET PO SCH ×2 (08:08→20:17)
[2017-04-30] MEDS: KETOCONAZOLE CRM 2%, 15GM TP SCH ×2 (08:19→20:17)
[2017-04-30] MEDS: MIDODRINE 5 MG TABLET PO SCH ×3 (08:20→20:18)
[2017-04-30] MEDS: HYDROcodone/APAP 5/325 TABLET PO PRN (16:06)
[2017-04-30] MEDS ORDERED: SODIUM PHOSPHATE 4 MEQ/ML IV ONE (17:00)
[2017-04-30] MEDS ORDERED: SODIUM PHOSPHATE 30 MMOL in SODIUM CHLORIDE 0.9% 500 ML IV ONE (17:30)
[2017-05-01 00:06] VITALS: BP 111/58
[2017-05-01 00:13] VITALS: BP 110/56
[2017-05-01 02:30] VITALS: BP 109/65
[2017-05-01 06:38] LABS: HEMOGLOBIN 7.4 g/dL (13.7-18.0); WHITE BLOOD COUNT 2.6 x10^3/uL (3.4-10)
[2017-05-01 06:40] VITALS: BP 106/57
[2017-05-01 06:40] LABS: DIFF TOTAL CELLS COUNTED 100 CELL DIFF
[2017-05-01 06:43] LABS: HEMATOCRIT 21.9 % (39.2-51.8)
[2017-05-01 06:54] LABS: ASPARTATE AMINO TRANSFERASE 18 U/L (15-37); BLOOD UREA NITROGEN 34 mg/dL (7-18)
[2017-05-01 07:02] LABS: VERIFY COUNTS? YES
[2017-05-01 07:03] LABS: ANISOCYTOSIS 1+; OVALOCYTES 1+; POIKILOCYTOSIS 1+; POLYCHROMASIA 1+
[2017-05-01 07:04] LABS: LARGE PLATELETS 1+
[2017-05-01] MEDS: PHYTONADIONE 5 MG TABLET PO SCH (07:14)
[2017-05-01] MEDS: POLYETHYLENE GLYCOL 17 GM PACKET PO SCH (07:15)
[2017-05-01 08:14] LABS: PROTIME 14.5 Seconds (9.6-11.5)
[2017-05-01] MEDS: SUCRALFATE 1 GM TABLET PO SCH ×4 (08:39→22:46)
[2017-05-01] MEDS: PANTOPROZOLE 40MG TABLET PO SCH ×2 (08:39→22:46)
[2017-05-01] MEDS: ALBUMIN HUMAN 25% 50 ML IV SCH ×2 (08:39→16:22)
[2017-05-01] MEDS: KETOCONAZOLE CRM 2%, 15GM TP SCH ×2 (08:39→22:47)
[2017-05-01] MEDS: FLUDROCORTISONE 0.1 MG TABLET PO SCH ×2 (08:39→22:46)
[2017-05-01] MEDS: HYDROcodone/APAP 5/325 TABLET PO PRN (08:39)
[2017-05-01] MEDS: MIDODRINE 5 MG TABLET PO SCH ×3 (08:39→22:46)
[2017-05-01] MEDS: POTASSIUM CHLORIDE 20 MEQ TAB.ER.PRT PO SCH (08:39)
[2017-05-01 12:47] VITALS: BP 122/52
[2017-05-01 20:51] VITALS: BP 104/64
[2017-05-02] MEDS: ALBUMIN HUMAN 25% 50 ML IV SCH ×3 (00:30→16:38)
[2017-05-02] MEDS: ALBUMIN HUMAN 25% 50 ML IV PRN (01:01)
[2017-05-02 02:13] VITALS: BP 122/64
[2017-05-02 05:08] LABS: PROTIME 14.7 Seconds (9.6-11.5)
[2017-05-02 05:09] LABS: HEMOGLOBIN 7.7 g/dL (13.7-18.0); WHITE BLOOD COUNT 3.1 x10^3/uL (3.4-10)
[2017-05-02 05:17] LABS: ASPARTATE AMINO TRANSFERASE 14 U/L (15-37); BLOOD UREA NITROGEN 51 mg/dL (7-18)
[2017-05-02 07:08] VITALS: BP 111/48
[2017-05-02] MEDS: POLYETHYLENE GLYCOL 17 GM PACKET PO SCH (09:00)
[2017-05-02] MEDS: SUCRALFATE 1 GM TABLET PO SCH ×4 (09:17→21:19)
[2017-05-02] MEDS: PANTOPROZOLE 40MG TABLET PO SCH ×2 (09:47→21:19)
[2017-05-02] MEDS: PHYTONADIONE 5 MG TABLET PO SCH (09:47)
[2017-05-02] MEDS: MIDODRINE 5 MG TABLET PO SCH ×3 (09:48→21:19)
[2017-05-02] MEDS: FLUDROCORTISONE 0.1 MG TABLET PO SCH ×2 (09:48→21:19)
[2017-05-02] MEDS: POTASSIUM CHLORIDE 20 MEQ TAB.ER.PRT PO SCH (09:48)
[2017-05-02 14:48] VITALS: BP 100/42
[2017-05-02] MEDS: HYDROcodone/APAP 5/325 TABLET PO PRN (16:38)
[2017-05-02] MEDS: KETOCONAZOLE CRM 2%, 15GM TP SCH ×2 (16:39→21:19)
[2017-05-02 20:42] VITALS: BP 106/63
[2017-05-03] MEDS: ALBUMIN HUMAN 25% 50 ML IV SCH ×3 (00:30→17:09)
[2017-05-03 01:46] VITALS: BP 99/62
[2017-05-03 05:54] LABS: BLOOD UREA NITROGEN 38 mg/dL (7-18)
[2017-05-03 05:57] LABS: ASPARTATE AMINO TRANSFERASE 15 U/L (15-37)
[2017-05-03 06:16] LABS: HEMOGLOBIN 7.6 g/dL (13.7-18.0); WHITE BLOOD COUNT 2.6 x10^3/uL (3.4-10)
[2017-05-03 06:25] LABS: HEMATOCRIT 22.8 % (39.2-51.8)
[2017-05-03] MEDS: PHYTONADIONE 5 MG TABLET PO SCH (07:20)
[2017-05-03 07:30] LABS: ANISOCYTOSIS 1+; HYPOCHROMIA 1+; OVALOCYTES 1+; POLYCHROMASIA 1+; TARGET CELLS 1+
[2017-05-03 08:00] VITALS: BP 106/52
[2017-05-03] MEDS: SUCRALFATE 1 GM TABLET PO SCH ×4 (08:32→20:42)
[2017-05-03] MEDS: MIDODRINE 5 MG TABLET PO SCH ×3 (08:32→20:42)
[2017-05-03] MEDS: POLYETHYLENE GLYCOL 17 GM PACKET PO SCH (08:33)
[2017-05-03] MEDS: FLUDROCORTISONE 0.1 MG TABLET PO SCH ×2 (08:33→20:42)
[2017-05-03] MEDS: POTASSIUM CHLORIDE 20 MEQ TAB.ER.PRT PO SCH (08:33)
[2017-05-03] MEDS: PANTOPROZOLE 40MG TABLET PO SCH ×2 (08:33→20:42)
[2017-05-03] MEDS: KETOCONAZOLE CRM 2%, 15GM TP SCH ×2 (08:34→20:42)
[2017-05-03 12:42] VITALS: BP 103/60
[2017-05-03] MEDS: DARBEPOETIN 100 MCG/ML SQ SCH (12:48)
[2017-05-03] MEDS ORDERED: ONDANSETRON 2MG/ML, 2ML IVPush PRN (20:00)
[2017-05-03] MEDS ORDERED: ACETAMINOPHEN 325 MG TABLET PO PRN (20:00)
[2017-05-03] MEDS ORDERED: hydrALAzine 20 MG/ML, 1ML IVPush PRN (20:00)
[2017-05-03] MEDS ORDERED: PHARMACY INSTRUCTION MC SCH (20:00)
[2017-05-03 20:40] VITALS: BP 113/64
[2017-05-04] VITALS (7 sets, daily range): BP systolic 101–116; BP diastolic 51–70
[2017-05-04] MEDS: ALBUMIN HUMAN 25% 50 ML IV SCH ×3 (01:51→17:05)
[2017-05-04] MEDS: HYDROcodone/APAP 5/325 TABLET PO PRN ×2 (02:51→23:14)
[2017-05-04 06:13] LABS: HEMATOCRIT 23.1 % (39.2-51.8); HEMOGLOBIN 7.7 g/dL (13.7-18.0)
[2017-05-04 06:23] LABS: BLOOD UREA NITROGEN 54 mg/dL (7-18)
[2017-05-04] MEDS: SUCRALFATE 1 GM TABLET PO SCH ×4 (07:52→21:06)
[2017-05-04] MEDS: PANTOPROZOLE 40MG TABLET PO SCH ×2 (07:52→21:06)
[2017-05-04] MEDS: POTASSIUM CHLORIDE 20 MEQ TAB.ER.PRT PO SCH (07:52)
[2017-05-04] MEDS: FLUDROCORTISONE 0.1 MG TABLET PO SCH ×2 (07:53→21:05)
[2017-05-04] MEDS: POLYETHYLENE GLYCOL 17 GM PACKET PO SCH (07:59)
[2017-05-04] MEDS: KETOCONAZOLE CRM 2%, 15GM TP SCH ×2 (10:21→21:05)
[2017-05-04] MEDS: MIDODRINE 5 MG TABLET PO SCH ×3 (11:57→21:06)
[2017-05-05] MEDS: ALBUMIN HUMAN 25% 50 ML IV SCH ×3 (00:38→16:31)
[2017-05-05 02:00] VITALS: BP 119/62
[2017-05-05 06:02] LABS: BLOOD UREA NITROGEN 68 mg/dL (7-18)
[2017-05-05 06:07] LABS: ASPARTATE AMINO TRANSFERASE 13 U/L (15-37)
[2017-05-05 06:09] LABS: HEMOGLOBIN 7.4 g/dL (13.7-18.0); WHITE BLOOD COUNT 2.5 x10^3/uL (3.4-10)
[2017-05-05 06:11] LABS: HEMATOCRIT 22.1 % (39.2-51.8)
[2017-05-05 06:53] VITALS: BP 110/62
[2017-05-05] MEDS: KETOCONAZOLE CRM 2%, 15GM TP SCH ×2 (09:00→20:50)
[2017-05-05] MEDS: MIDODRINE 5 MG TABLET PO SCH ×3 (09:24→20:51)
[2017-05-05] MEDS: PANTOPROZOLE 40MG TABLET PO SCH ×2 (09:24→20:51)
[2017-05-05] MEDS: FLUDROCORTISONE 0.1 MG TABLET PO SCH ×2 (09:24→20:50)
[2017-05-05] MEDS: POTASSIUM CHLORIDE 20 MEQ TAB.ER.PRT PO SCH (09:25)
[2017-05-05] MEDS: POLYETHYLENE GLYCOL 17 GM PACKET PO SCH (09:25)
[2017-05-05] MEDS: SUCRALFATE 1 GM TABLET PO SCH ×4 (09:25→20:51)
[2017-05-05 12:55] VITALS: BP 104/54
[2017-05-05 20:00] VITALS: BP 90/51
[2017-05-06] VITALS (10 sets, daily range): BP systolic 97–127; BP diastolic 52–65
[2017-05-06] MEDS: ALBUMIN HUMAN 25% 50 ML IV SCH ×4 (01:13→23:44)
[2017-05-06 05:56] LABS: BLOOD UREA NITROGEN 42 mg/dL (7-18)
[2017-05-06 06:00] LABS: HEMOGLOBIN 7.3 g/dL (13.7-18.0); WHITE BLOOD COUNT 2.1 x10^3/uL (3.4-10)
[2017-05-06 06:18] LABS: HEMATOCRIT 21.9 % (39.2-51.8)
[2017-05-06] MEDS: POLYETHYLENE GLYCOL 17 GM PACKET PO SCH (08:43)
[2017-05-06] MEDS: PANTOPROZOLE 40MG TABLET PO SCH ×2 (08:45→21:40)
[2017-05-06] MEDS: POTASSIUM CHLORIDE 20 MEQ TAB.ER.PRT PO SCH (08:45)
[2017-05-06] MEDS: MIDODRINE 5 MG TABLET PO SCH ×3 (08:45→21:40)
[2017-05-06] MEDS: SUCRALFATE 1 GM TABLET PO SCH ×4 (08:46→21:40)
[2017-05-06] MEDS: FLUDROCORTISONE 0.1 MG TABLET PO SCH ×2 (08:46→21:40)
[2017-05-06] MEDS: KETOCONAZOLE CRM 2%, 15GM TP SCH ×2 (09:00→21:39)
[2017-05-07 02:00] VITALS: BP 118/67
[2017-05-07 06:27] LABS: HEMOGLOBIN 7.4 g/dL (13.7-18.0); WHITE BLOOD COUNT 2.2 x10^3/uL (3.4-10)
[2017-05-07 06:32] LABS: BLOOD UREA NITROGEN 54 mg/dL (7-18)
[2017-05-07 06:36] LABS: PROTIME 14.5 Seconds (9.6-11.5)
[2017-05-07 06:37] LABS: ASPARTATE AMINO TRANSFERASE 14 U/L (15-37)
[2017-05-07 06:42] LABS: HEMATOCRIT 21.8 % (39.2-51.8)
[2017-05-07] MEDS: SUCRALFATE 1 GM TABLET PO SCH ×4 (07:00→21:00)
[2017-05-07 08:00] VITALS: BP 118/65
[2017-05-07] MEDS: ALBUMIN HUMAN 25% 50 ML IV SCH ×2 (08:30→15:22)
[2017-05-07] MEDS: PANTOPROZOLE 40MG TABLET PO SCH ×2 (09:00→22:03)
[2017-05-07] MEDS: KETOCONAZOLE CRM 2%, 15GM TP SCH ×2 (09:00→22:04)
[2017-05-07] MEDS: POLYETHYLENE GLYCOL 17 GM PACKET PO SCH (09:00)
[2017-05-07] MEDS: MIDODRINE 5 MG TABLET PO SCH ×3 (09:00→22:04)
[2017-05-07] MEDS: FLUDROCORTISONE 0.1 MG TABLET PO SCH ×2 (09:00→22:04)
[2017-05-07 14:00] VITALS: BP 111/57
[2017-05-07] MEDS: POTASSIUM CHLORIDE 20 MEQ TAB.ER.PRT PO SCH (15:22)
[2017-05-07 20:00] VITALS: BP 117/63
[2017-05-08] VITALS (10 sets, daily range): BP systolic 92–106; BP diastolic 48–59
[2017-05-08] MEDS: ALBUMIN HUMAN 25% 50 ML IV SCH ×3 (00:24→16:30)
[2017-05-08 05:39] LABS: ASPARTATE AMINO TRANSFERASE 16 U/L (15-37); BLOOD UREA NITROGEN 40 mg/dL (7-18); PROTIME 14.7 Seconds (9.6-11.5)
[2017-05-08 05:46] LABS: HEMOGLOBIN 7.3 g/dL (13.7-18.0); WHITE BLOOD COUNT 2.2 x10^3/uL (3.4-10)
[2017-05-08 05:50] LABS: HEMATOCRIT 22.3 % (39.2-51.8)
[2017-05-08] MEDS: SUCRALFATE 1 GM TABLET PO SCH ×4 (07:00→21:00)
[2017-05-08] MEDS: FLUDROCORTISONE 0.1 MG TABLET PO SCH ×2 (08:25→21:54)
[2017-05-08] MEDS: POTASSIUM CHLORIDE 20 MEQ TAB.ER.PRT PO SCH (08:25)
[2017-05-08] MEDS: MIDODRINE 5 MG TABLET PO SCH ×3 (08:25→21:57)
[2017-05-08] MEDS: PANTOPROZOLE 40MG TABLET PO SCH ×2 (08:25→21:54)
[2017-05-08] MEDS: POLYETHYLENE GLYCOL 17 GM PACKET PO SCH (08:26)
[2017-05-08] MEDS: KETOCONAZOLE CRM 2%, 15GM TP SCH ×2 (08:26→21:55)
[2017-05-08 09:50] LABS: HEP B SURF. AB 395.8 mIU/mL (0.0-10.0)
[2017-05-08] MEDS: HYDROcodone/APAP 5/325 TABLET PO PRN (19:10)
[2017-05-09] MEDS: ALBUMIN HUMAN 25% 50 ML IV SCH ×3 (00:28→16:37)
[2017-05-09 01:14] VITALS: BP 101/57
[2017-05-09 06:48] VITALS: BP 105/62
[2017-05-09] MEDS: SUCRALFATE 1 GM TABLET PO SCH ×4 (07:00→23:00)
[2017-05-09] MEDS: MIDODRINE 5 MG TABLET PO SCH ×2 (08:06→16:37)
[2017-05-09] MEDS: FLUDROCORTISONE 0.1 MG TABLET PO SCH (08:06)
[2017-05-09] MEDS: PANTOPROZOLE 40MG TABLET PO SCH (08:06)
[2017-05-09] MEDS: KETOCONAZOLE CRM 2%, 15GM TP SCH ×2 (08:07→23:00)
[2017-05-09] MEDS: POLYETHYLENE GLYCOL 17 GM PACKET PO SCH (08:09)
[2017-05-09] MEDS: POTASSIUM CHLORIDE 20 MEQ TAB.ER.PRT PO SCH (08:09)
[2017-05-09 08:22] LABS: ASPARTATE AMINO TRANSFERASE 14 U/L (15-37); BLOOD UREA NITROGEN 53 mg/dL (7-18)
[2017-05-09 08:38] LABS: HEMOGLOBIN 7.2 g/dL (13.7-18.0); WHITE BLOOD COUNT 2.6 x10^3/uL (3.4-10)
[2017-05-09 08:40] LABS: HEMATOCRIT 21.9 % (39.2-51.8)
[2017-05-09 08:41] LABS: PROTIME 14.8 Seconds (9.6-11.5)
[2017-05-09 13:53] VITALS: BP 103/65
[2017-05-09 19:13] VITALS: BP 97/59
[2017-05-09] MEDS ORDERED: EPINEPHRINE 1 MG/ML, 1ML ONE (21:51)
[2017-05-09] MEDS ORDERED: HEPARIN 1,000 UNITS/ML, 10ML ONE (21:54)
[2017-05-09] MEDS ORDERED: MIDAZOLAM 1 MG/ML, 5ML ONE (21:55)
[2017-05-09] MEDS ORDERED: FENTANYL PF 100 MCG/2ML ONE (21:55)
[2017-05-09] MEDS ORDERED: BUPIVACAINE/PF 0.5% INFIL ONE (22:26)
[2017-05-09] MEDS ORDERED: EPINEPHRINE 1 MG/ML, 1ML INFIL ONE (22:28)
[2017-05-09] MEDS ORDERED: HEPARIN 1,000 UNITS/ML, 10ML IV ONE (22:33)
[2017-05-09] MEDS ORDERED: HYDROmorphone 1 MG/ML, 1ML IV PRN (23:30)
[2017-05-09] MEDS ORDERED: ONDANSETRON 2MG/ML, 2ML IVPush PRN (23:30)
[2017-05-09] MEDS ORDERED: FENTANYL PF 100 MCG/2ML IV PRN (23:30)
[2017-05-10] VITALS (18 sets, daily range): BP systolic 96–137; BP diastolic 42–79
[2017-05-10] MEDS: MIDODRINE 5 MG TABLET PO SCH ×4 (00:28→23:00)
[2017-05-10] MEDS: ALBUMIN HUMAN 25% 50 ML IV SCH ×3 (00:29→16:22)
[2017-05-10] MEDS: PANTOPROZOLE 40MG TABLET PO SCH ×3 (00:29→23:00)
[2017-05-10] MEDS: FLUDROCORTISONE 0.1 MG TABLET PO SCH ×3 (00:29→23:00)
[2017-05-10 05:22] LABS: ASPARTATE AMINO TRANSFERASE 12 U/L (15-37); BLOOD UREA NITROGEN 38 mg/dL (7-18)
[2017-05-10 05:28] LABS: PROTIME 15.2 Seconds (9.6-11.5)
[2017-05-10 05:33] LABS: HEMOGLOBIN 7.1 g/dL (13.7-18.0); WHITE BLOOD COUNT 2.8 x10^3/uL (3.4-10)
[2017-05-10 05:57] LABS: DIFF TOTAL CELLS COUNTED 100 CELL DIFF
[2017-05-10 06:02] LABS: HEMATOCRIT 21.5 % (39.2-51.8)
[2017-05-10 06:04] LABS: VERIFY COUNTS? YES
[2017-05-10 06:06] LABS: POLYCHROMASIA 1+
[2017-05-10 06:07] LABS: ANISOCYTOSIS 2+
[2017-05-10] MEDS: SUCRALFATE 1 GM TABLET PO SCH ×4 (07:00→21:00)
[2017-05-10] MEDS: KETOCONAZOLE CRM 2%, 15GM TP SCH ×2 (08:20→21:00)
[2017-05-10] MEDS: POTASSIUM CHLORIDE 20 MEQ TAB.ER.PRT PO SCH (08:21)
[2017-05-10] MEDS: POLYETHYLENE GLYCOL 17 GM PACKET PO SCH (08:21)
[2017-05-10] MEDS: DARBEPOETIN 100 MCG/ML SQ SCH (12:30)
[2017-05-10] MEDS: HYDROcodone/APAP 5/325 TABLET PO PRN (17:28)
[2017-05-10] MEDS ORDERED: ONDANSETRON 2MG/ML, 2ML IVPush PRN (19:00)
[2017-05-10] MEDS ORDERED: ACETAMINOPHEN 325 MG TABLET PO PRN (19:00)
[2017-05-10] MEDS ORDERED: hydrALAzine 20 MG/ML, 1ML IVPush PRN (19:00)
[2017-05-10] MEDS ORDERED: PHARMACY INSTRUCTION MC SCH (19:00)
[2017-05-11] MEDS: ALBUMIN HUMAN 25% 50 ML IV SCH ×3 (01:11→16:17)
[2017-05-11 03:37] VITALS: BP 117/69
[2017-05-11 06:39] LABS: HEMOGLOBIN 7.1 g/dL (13.7-18.0); WHITE BLOOD COUNT 3.3 x10^3/uL (3.4-10)
[2017-05-11 06:46] LABS: ASPARTATE AMINO TRANSFERASE 13 U/L (15-37); BLOOD UREA NITROGEN 51 mg/dL (7-18)
[2017-05-11 06:48] LABS: HEMATOCRIT 21.5 % (39.2-51.8)
[2017-05-11 06:53] LABS: PROTIME 14.6 Seconds (9.6-11.5)
[2017-05-11] MEDS: SUCRALFATE 1 GM TABLET PO SCH ×4 (07:00→21:00)
[2017-05-11 07:08] LABS: DIFF TOTAL CELLS COUNTED 100 CELL DIFF
[2017-05-11 08:01] LABS: ANISOCYTOSIS 2+; POLYCHROMASIA 1+; VERIFY COUNTS? YES
[2017-05-11 08:18] VITALS: BP 99/60
[2017-05-11] MEDS: FLUDROCORTISONE 0.1 MG TABLET PO SCH ×2 (08:47→21:28)
[2017-05-11] MEDS: PANTOPROZOLE 40MG TABLET PO SCH ×2 (08:47→21:28)
[2017-05-11] MEDS: POTASSIUM CHLORIDE 20 MEQ TAB.ER.PRT PO SCH (08:47)
[2017-05-11] MEDS: POLYETHYLENE GLYCOL 17 GM PACKET PO SCH (08:48)
[2017-05-11] MEDS: MIDODRINE 5 MG TABLET PO SCH ×3 (08:50→21:28)
[2017-05-11] MEDS: KETOCONAZOLE CRM 2%, 15GM TP SCH ×2 (10:14→21:27)
[2017-05-11 14:23] VITALS: BP 97/58
[2017-05-11 19:37] VITALS: BP 88/41
[2017-05-11] MEDS: HYDROcodone/APAP 5/325 TABLET PO PRN (22:25)
[2017-05-12] MEDS: ALBUMIN HUMAN 25% 50 ML IV SCH ×2 (00:32→08:30)
[2017-05-12 02:05] VITALS: BP 100/43
[2017-05-12 06:28] LABS: HEMOGLOBIN 7.1 g/dL (13.7-18.0); WHITE BLOOD COUNT 3.5 x10^3/uL (3.4-10)
[2017-05-12 06:34] VITALS: BP 108/66
[2017-05-12 06:37] LABS: HEMATOCRIT 21.7 % (39.2-51.8)
[2017-05-12 06:40] LABS: PROTIME 14.3 Seconds (9.6-11.5)
[2017-05-12 06:54] LABS: BLOOD UREA NITROGEN 63 mg/dL (7-18)
[2017-05-12 06:58] LABS: DIFF TOTAL CELLS COUNTED 100 CELL DIFF
[2017-05-12 07:00] LABS: ANISOCYTOSIS 2+; HYPOCHROMIA 1+; POLYCHROMASIA 1+; VERIFY COUNTS? YES
[2017-05-12] MEDS: SUCRALFATE 1 GM TABLET PO SCH ×2 (07:00→11:00)
[2017-05-12 07:01] LABS: OVALOCYTES 1+
[2017-05-12] MEDS: POLYETHYLENE GLYCOL 17 GM PACKET PO SCH (09:00)
[2017-05-12] MEDS: KETOCONAZOLE CRM 2%, 15GM TP SCH (09:00)
[2017-05-12] MEDS: MIDODRINE 5 MG TABLET PO SCH (09:00)
[2017-05-12] MEDS: FLUDROCORTISONE 0.1 MG TABLET PO SCH (09:00)
[2017-05-12] MEDS: PANTOPROZOLE 40MG TABLET PO SCH (09:00)
[2017-05-12] MEDS ORDERED: KETO15CR2 TP (12:54)
[2017-05-12] MEDS ORDERED: FLUD0.1T PO (12:54)
[2017-05-12] MEDS ORDERED: SUCR1TAB33 PO (12:54)
[2017-05-12] MEDS ORDERED: MIDO5TAB PO (12:54)
[2017-05-12] MEDS ORDERED: PRED10TA PO (12:54)
[2017-05-12] MEDS ORDERED: PANT40TA5 PO (12:54)
== END 2017-05-12 14:15 | disposition short-term general hospital (02) | DRG 871 ==
LOC: 4EST 14:51 → 4WST 04-21 10:01
PROVIDERS: ADMIT Internal Medicine; ATTEND Family Medicine
PROC: 30233L1 Transfusion of Nonautologous Fresh Plasma into Peripheral Vein, Percutaneous Approach (ICD-10-PCS; principal; 2017-04-01)
PROC: 30233N1 Transfusion of Nonautologous Red Blood Cells into Peripheral Vein, Percutaneous Approach (ICD-10-PCS; 2017-04-01)
PROC: 30233R1 Transfusion of Nonautologous Platelets into Peripheral Vein, Percutaneous Approach (ICD-10-PCS; 2017-04-01)
PROC: 30233K1 Transfusion of Nonautologous Frozen Plasma into Peripheral Vein, Percutaneous Approach (ICD-10-PCS; 2017-04-01)
PROC: 0W9M0ZZ Drainage of Male Perineum, Open Approach (ICD-10-PCS; 2017-04-04)
PROC: 02HV33Z Insertion of Infusion Device into Superior Vena Cava, Percutaneous Approach (ICD-10-PCS; 2017-04-06)
PROC: B548ZZA Ultrasonography of Superior Vena Cava, Guidance (ICD-10-PCS; 2017-04-06)
DX: A41.9 Sepsis, unspecified organism (principal); N17.0 Acute kidney failure with tubular necrosis; E43 Unspecified severe protein-calorie malnutrition; D61.818 Other pancytopenia; D69.3 Immune thrombocytopenic purpura; K26.4 Chronic or unspecified duodenal ulcer with hemorrhage; I95.89 Other hypotension; J18.9 Pneumonia, unspecified organism; D68.8 Other specified coagulation defects; D62 Acute posthemorrhagic anemia; D68.62 Lupus anticoagulant syndrome; I13.0 Hypertensive heart and chronic kidney disease with heart failure and stage 1 through stage 4 chronic kidney disease, or unspecified chronic kidney disease; I82.619 Acute embolism and thrombosis of superficial veins of unspecified upper extremity; K61.0 Anal abscess; K76.6 Portal hypertension; L02.215 Cutaneous abscess of perineum; N18.4 Chronic kidney disease, stage 4 (severe); N39.0 Urinary tract infection, site not specified; R18.8 Other ascites; Z68.45 Body mass index [BMI] 70 or greater, adult; W18.30XA Fall on same level, unspecified, initial encounter; B37.2 Candidiasis of skin and nail; I50.9 Heart failure, unspecified; E11.22 Type 2 diabetes mellitus with diabetic chronic kidney disease; D47.2 Monoclonal gammopathy; D63.1 Anemia in chronic kidney disease; D75.89 Other specified diseases of blood and blood-forming organs; E55.9 Vitamin D deficiency, unspecified; E66.01 Morbid (severe) obesity due to excess calories; I07.1 Rheumatic tricuspid insufficiency; I27.2 Other secondary pulmonary hypertension; I34.0 Nonrheumatic mitral (valve) insufficiency; I35.1 Nonrheumatic aortic (valve) insufficiency; K72.90 Hepatic failure, unspecified without coma; K74.60 Unspecified cirrhosis of liver; K75.4 Autoimmune hepatitis; K75.81 Nonalcoholic steatohepatitis (NASH); K80.20 Calculus of gallbladder without cholecystitis without obstruction; M10.9 Gout, unspecified; N20.0 Calculus of kidney; N25.0 Renal osteodystrophy; R29.6 Repeated falls; Y92.009 Unspecified place in unspecified non-institutional (private) residence as the place of occurrence of the external cause; Z80.0 Family history of malignant neoplasm of digestive organs; Z74.01 Bed confinement status; Z82.49 Family history of ischemic heart disease and other diseases of the circulatory system; Z83.1 Family history of other infectious and parasitic diseases; Z86.2 Personal history of diseases of the blood and blood-forming organs and certain disorders involving the immune mechanism; Z86.718 Personal history of other venous thrombosis and embolism; Z87.11 Personal history of peptic ulcer disease; Z87.440 Personal history of urinary (tract) infections; Z87.442 Personal history of urinary calculi; Z90.49 Acquired absence of other specified parts of digestive tract; Z99.2 Dependence on renal dialysis; Z91.81 History of falling
CPT/HCPCS: 36415; 36556; 71010; 71250; 74176; 76700; 76870; 76937; 77001; 80048; 80053; 80069; 80074; 80076; 80202; 81001; 82040; 82247; 82248; 82272; 82306; 82390; 82533; 82542; 82550; 82570; 82607; 82728; 82784; 82962; 83010; 83516; 83520; 83540; 83550; 83615; 83735; 83970; 84100; 84155; 84156; 84165; 84166; 84439; 84443; 84481; 84550; 85014; 85018; 85025; 85045; 85049; 85379; 85384; 85397; 85598; 85610; 85613; 85651; 85670; 85705; 85730; 85732; 86022; 86038; 86063; 86146; 86147; 86160; 86162; 86225; 86235; 86255; 86256; 86334; 86376; 86431; 86480; 86703; 86706; 86850; 86880; 86900; 86923; 87040; 87070; 87086; 87205; 87324; 87340; 87899; 93005; C1894; C8929; J0171; J0881; J1459; J1644; J2250; J2405; J2543; J2704; J2930; J3010; J3370; J3490; P9047; C1751; C1769; G0435; J0330; J0834; J1642; J2370; J7030; J7040; J7050; J7512; P9012; P9016; P9035

== ENCOUNTER 2017-09-22 08:13 | Day surgery (SDC) | payer MEDICAID ==
[~2017-09-22] VITALS: Ht 175.3 cm; Wt 156.5 kg
[~2017-09-22 08:13] MED LIST changes: +BUPIVACAINE/PF 0.5% ONE; +FLUD0.1T PO; +FOLI-17 PO; +HEPARIN 1,000 UNITS/ML, 10ML ONE; +INSU100I28 SC; +KETO15CR2 TP; +LACT20SO13 PO; +MIDO5TAB PO; +OMEP20CA14 PO; +PANT40TA5 PO; +POTA20TA89 PO; +PRED10TA PO; +PROTAMINE SULFATE 10 MG/ML, 5ML ONE; +RIFA550T4 PO; +SUCR1TAB33 PO; +THROMBIN 5,000 UNIT VIAL TP ONE
[2017-09-22] MEDS ORDERED: SODIUM CHLORIDE 0.9% 1,000 ML IV SCH (09:05)
[2017-09-22] MEDS ORDERED: TRAM50TA2 PO (09:27)
[2017-09-22] MEDS ORDERED: ASPART FLEX (09:27)
[2017-09-22] MEDS ORDERED: LIDOCAINE 1%, 2ML SQ PRN (09:30)
[2017-09-22] MEDS ORDERED: ASPART FLEX SQ-INSULIN (09:39)
[2017-09-22 09:43] VITALS: BP 125/86
[2017-09-22 10:58] LABS: BASOPHILS # (AUTO) 0.03 x10^3/uL (0-0.1); BASOPHILS % (AUTO) 1 % (0-1); EOSINOPHILS # (AUTO) 0.05 x10^3/uL (0-0.4); EOSINOPHILS % (AUTO) 1 % (1-7); LYMPHOCYTES # (AUTO) 1.33 x10^3/uL (1-3.4); LYMPHOCYTES % (AUTO) 31 % (22-44); MD SCAN; MEAN CORPUSCULAR HEMOGLOBIN 34.5 pg (27.5-34.5); MEAN CORPUSCULAR HGB CONC 32.7 g/dL (33.2-36.2); MEAN CORPUSCULAR VOLUME 105.5 fL (81-97); MEAN PLATELET VOLUME 9.4 fL (7.4-10.4); MONOCYTES # (AUTO) 0.26 x10^3/uL (0.2-0.8); MONOCYTES % (AUTO) 6 % (2-9); NEUTROPHILS # (AUTO) 2.58 x10^3/uL (1.8-6.8); NEUTROPHILS % (AUTO) 61 % (42-75); PLATELET COUNT 69 x10^3/uL (130-400); RED BLOOD COUNT 2.44 x10^6/uL (4.38-5.82); RED CELL DISTRIBUTION WIDTH 17.9 % (9.4-14.8)
[2017-09-22] MEDS ORDERED: FENTANYL PF 100 MCG/2ML ONE ×4 (11:50→13:37)
[2017-09-22] MEDS ORDERED: MIDAZOLAM 1 MG/ML, 2ML ONE (11:50)
[2017-09-22] MEDS ORDERED: ONDANSETRON 2MG/ML, 2ML ONE (11:59)
[2017-09-22] MEDS ORDERED: PROPOFOL 10 MG/ML, 20ML ONE (11:59)
[2017-09-22] MEDS ORDERED: CEFAZOLIN 1,000 MG ONE (11:59)
[2017-09-22] MEDS ORDERED: MIDAZOLAM 1 MG/ML, 5ML ONE (11:59)
[2017-09-22] MEDS ORDERED: OXYcodone 5 MG/5 ML ORAL.SOL UDC ONE (13:37)
[2017-09-22] MEDS ORDERED: HYDROcodone/APAP 7.5-325MG/15ML UDC PO PRN (14:00)
[2017-09-22] MEDS ORDERED: hydrALAzine 20 MG/ML, 1ML IV PRN (14:00)
[2017-09-22] MEDS ORDERED: FENTANYL PF 100 MCG/2ML IV PRN (14:00)
[2017-09-22] MEDS ORDERED: PROMETHAZINE 12.5 MG SUPP PR PRN (14:00)
[2017-09-22] MEDS ORDERED: HYDROmorphone 1 MG/ML, 1ML IV PRN (14:00)
[2017-09-22] MEDS ORDERED: OXYcodone 5 MG/5 ML ORAL.SOL UDC PO PRN (14:00)
[2017-09-22] MEDS ORDERED: ACETAMINOPHEN 325 MG TABLET PO PRN (14:00)
[2017-09-22] MEDS ORDERED: LABETALOL 5MG/ML, 20ML IV PRN (14:00)
[2017-09-22] MEDS ORDERED: ONDANSETRON 2MG/ML, 2ML IVPush PRN (14:00)
[2017-09-22] MEDS ORDERED: EPHEDRINE 50 MG/ML, 1ML IVPush PRN (14:00)
[2017-09-22] MEDS ORDERED: METOPROLOL 1 MG/ML, 5ML IV PRN (14:00)
[2017-09-22] MEDS ORDERED: MIDAZOLAM 1 MG/ML, 2ML IV PRN (14:00)
[2017-09-22] MEDS ORDERED: ALBUTEROL SULFATE 2.5 MG/3 ML NPPB PRN (14:00)
== END 2017-09-22 15:55 ==
LOC: OUT 08:13
PROVIDERS: ATTEND Surgery Vascular Surgery
DX: E11.22 Type 2 diabetes mellitus with diabetic chronic kidney disease (principal); N18.6 End stage renal disease; K21.9 Gastro-esophageal reflux disease without esophagitis; Z88.1 Allergy status to other antibiotic agents
CPT/HCPCS: 36415; 36821; 80047; 85025; J0690; J1644; J2250; J2405; J2704; J3010; J3490; J7030; J2720

== ENCOUNTER 2017-11-19 13:27 | Inpatient (IN) | payer MEDICAID ==
[2017-11-19] VITALS (9 sets, daily range): BP systolic 94–118; BP diastolic 40–79
[~2017-11-19] VITALS: Ht 175.3 cm; Wt 151.0 kg
[~2017-11-19 13:27] MED LIST changes: +ASPART FLEX; +ASPART FLEX SQ-INSULIN; -BUPIVACAINE/PF 0.5% ONE; -HEPARIN 1,000 UNITS/ML, 10ML ONE; -PROTAMINE SULFATE 10 MG/ML, 5ML ONE; -THROMBIN 5,000 UNIT VIAL TP ONE; +TRAM50TA2 PO
[2017-11-19] MEDS ORDERED: SODIUM CHLORIDE 0.9% 1,000ML IVBOLUS ONE (14:00)
[2017-11-19 14:42] LABS: MEAN CORPUSCULAR HEMOGLOBIN 33.8 pg (27.5-34.5); MEAN CORPUSCULAR HGB CONC 33.4 g/dL (33.2-36.2); RED BLOOD COUNT 1.81 x10^6/uL (4.38-5.82); RED CELL DISTRIBUTION WIDTH 19.8 % (9.4-14.8)
[2017-11-19 14:46] LABS: ALANINE AMINOTRANSFERASE 15 U/L (12-78); ALBUMIN 2.3 g/dL (3.4-5.0); ANION GAP 9 mmol/L (5-15); CALCIUM 8.1 mg/dL (8.5-10.1); CHLORIDE 101 mmol/L (98-107); CREATININE 8.25 mg/dL (0.7-1.3)
[2017-11-19 14:48] LABS: ALKALINE PHOSPHATASE 97 U/L (45-117); BILIRUBIN,TOTAL 1.5 mg/dL (0.2-1.0); TOTAL PROTEIN 5.1 g/dL (6.4-8.2)
[2017-11-19 15:18] LABS: BASOPHILS # (AUTO) 0.01 x10^3/uL (0-0.1); BASOPHILS % (AUTO) 1 % (0-1); EOSINOPHILS # (AUTO) 0.04 x10^3/uL (0-0.4); EOSINOPHILS % (AUTO) 2 % (1-7); LYMPHOCYTES # (AUTO) 1.01 x10^3/uL (1-3.4); LYMPHOCYTES % (AUTO) 36 % (22-44); MD MORPH REVIEW ONLY; MEAN PLATELET VOLUME 8.7 fL (7.4-10.4); MONOCYTES # (AUTO) 0.24 x10^3/uL (0.2-0.8); MONOCYTES % (AUTO) 9 % (2-9); NEUTROPHILS % (AUTO) 54 % (42-75); PLATELET COUNT 52 x10^3/uL (130-400)
[2017-11-19 15:20] LABS: ANISOCYTOSIS 2+
[2017-11-19 15:21] LABS: <PLATELET ESTIMATE> DECREASED; <PLT MORPHOLOGY> NORMAL PLT MORPH; OVALOCYTES 1+; POLYCHROMASIA 1+
[2017-11-19] MEDS ORDERED: ONDA8TAB16 SL (15:32)
[2017-11-19] MEDS ORDERED: FOLI-17 PO (15:32)
[2017-11-19] MEDS ORDERED: LANT1000 PO (15:32)
[2017-11-19] MEDS ORDERED: TEMAZEPAM 15 MG CAPSULE PO PRN (16:30)
[2017-11-19] MEDS ORDERED: ACETAMINOPHEN 325 MG TABLET PO PRN (16:30)
[2017-11-19] MEDS: MIDODRINE 5 MG TABLET PO SCH ×2 (16:30→22:48)
[2017-11-19] MEDS ORDERED: HYDROcodone/APAP 5/325 TABLET PO PRN (16:30)
[2017-11-19] MEDS ORDERED: hydrALAzine 20 MG/ML, 1ML IVPush PRN (16:30)
[2017-11-19] MEDS: LACTULOSE 20 GM/30 ML UDC PO SCH ×3 (19:30→22:46)
[2017-11-19] MEDS: PANTOPRAZOLE 40 MG IV IVPush SCH ×4 (19:51→22:49)
[2017-11-19] MEDS: INSULIN LISPRO 100 UNITS/ML, PEN SQ-INSULIN SCH ×2 (19:52→21:00)
[2017-11-19] MEDS: INSULIN GLARGINE 100 UNITS/ML, PEN SQ-INSULIN SCH (22:47)
[2017-11-20] VITALS (12 sets, daily range): BP systolic 90–132; BP diastolic 42–63
[2017-11-20 05:55] LABS: MEAN CORPUSCULAR HEMOGLOBIN 32.9 pg (27.5-34.5); MEAN CORPUSCULAR VOLUME 96.8 fL (81-97); RED BLOOD COUNT 2.09 x10^6/uL (4.38-5.82); RED CELL DISTRIBUTION WIDTH 19.5 % (9.4-14.8)
[2017-11-20 06:03] LABS: CHLORIDE 99 mmol/L (98-107)
[2017-11-20 06:18] LABS: ALANINE AMINOTRANSFERASE 13 U/L (12-78); ALBUMIN 2.1 g/dL (3.4-5.0); ALKALINE PHOSPHATASE 73 U/L (45-117); ANION GAP 10 mmol/L (5-15); BILIRUBIN,TOTAL 1.6 mg/dL (0.2-1.0); CALCIUM 7.8 mg/dL (8.5-10.1); CREATININE 5.55 mg/dL (0.7-1.3); THYROID STIMULATING HORMONE 0.984 mIU/L (0.358-3.740); TOTAL PROTEIN 4.6 g/dL (6.4-8.2)
[2017-11-20 06:31] LABS: BASOPHILS # (AUTO) 0.01 x10^3/uL (0-0.1); BASOPHILS % (AUTO) 1 % (0-1); EOSINOPHILS # (AUTO) 0.04 x10^3/uL (0-0.4); EOSINOPHILS % (AUTO) 2 % (1-7); LYMPHOCYTES # (AUTO) 1.11 x10^3/uL (1-3.4); LYMPHOCYTES % (AUTO) 55 % (22-44); MD SCAN; MEAN PLATELET VOLUME 8.4 fL (7.4-10.4); MONOCYTES # (AUTO) 0.16 x10^3/uL (0.2-0.8); MONOCYTES % (AUTO) 8 % (2-9); NEUTROPHILS # (AUTO) 0.69 x10^3/uL (1.8-6.8); NEUTROPHILS % (AUTO) 34 % (42-75); PLATELET COUNT 54 x10^3/uL (130-400)
[2017-11-20] MEDS: INSULIN LISPRO 100 UNITS/ML, PEN SQ-INSULIN SCH ×4 (07:00→21:00)
[2017-11-20] MEDS ORDERED: FLUDROCORTISONE 0.1 MG TABLET PO SCH (09:00)
[2017-11-20] MEDS: MIDODRINE 5 MG TABLET PO SCH ×3 (09:06→21:39)
[2017-11-20] MEDS: PANTOPRAZOLE 40 MG IV IVPush SCH ×2 (09:06→21:39)
[2017-11-20] MEDS: FOLIC ACID 1 MG TABLET PO SCH (09:06)
[2017-11-20] MEDS ORDERED: ARANESP 100 MCG/ML **ESRD SQ SCH (10:30)
[2017-11-20 16:30] LABS: INTERNATIONAL NORMALIZED RATIO 1.37 (0.93-1.1)
[2017-11-20] MEDS: LACTULOSE 20 GM/30 ML UDC PO SCH (21:39)
[2017-11-20] MEDS: INSULIN GLARGINE 100 UNITS/ML, PEN SQ-INSULIN SCH (22:41)
[2017-11-21 01:57] VITALS: BP 93/53
[2017-11-21 05:28] LABS: MEAN CORPUSCULAR HEMOGLOBIN 32.5 pg (27.5-34.5); MEAN CORPUSCULAR HGB CONC 33.9 g/dL (33.2-36.2); MEAN CORPUSCULAR VOLUME 95.8 fL (81-97); RED BLOOD COUNT 2.58 x10^6/uL (4.38-5.82); RED CELL DISTRIBUTION WIDTH 19.5 % (9.4-14.8)
[2017-11-21 05:33] LABS: CHLORIDE 101 mmol/L (98-107)
[2017-11-21 05:42] LABS: ALANINE AMINOTRANSFERASE 14 U/L (12-78); ALBUMIN 2.3 g/dL (3.4-5.0); ALKALINE PHOSPHATASE 83 U/L (45-117); ANION GAP 9 mmol/L (5-15); BILIRUBIN,TOTAL 1.9 mg/dL (0.2-1.0); CALCIUM 8.3 mg/dL (8.5-10.1); CREATININE 7.41 mg/dL (0.7-1.3)
[2017-11-21 06:46] LABS: MEAN PLATELET VOLUME 8.8 fL (7.4-10.4)
[2017-11-21 06:47] LABS: MD YES
[2017-11-21 06:49] LABS: PLATELET COUNT 37 x10^3/uL (130-400)
[2017-11-21] MEDS: INSULIN LISPRO 100 UNITS/ML, PEN SQ-INSULIN SCH ×4 (07:00→21:00)
[2017-11-21 07:25] LABS: ANISOCYTOSIS 2+; LYMPH#(MANUAL) 0.31 x10^3/uL (1-3.4); LYMPHS% (MANUAL) 14 % (22-44); MONOS#(MANUAL) 0.09 x10^3/uL (0.3-2.7); MONOS% (MANUAL) 4 % (2-9); REACTIVE LYMPHS # (MANUAL) 0.04 x10^3/uL (0-0); REACTIVE LYMPHS % (MANUAL) 2 % (0-0); SEG#(MANUAL) 1.76 x10^3/uL (1.8-6.8); SEGS% (MANUAL) 80 % (42-75)
[2017-11-21 07:26] LABS: <PLATELET ESTIMATE> DECREASED; <PLT MORPHOLOGY> NORMAL PLT MORPH; POLYCHROMASIA 1+
[2017-11-21] MEDS ORDERED: LACTULOSE 3.3 GM/5 ML ORAL.SOL RC ONE (07:30)
[2017-11-21 07:59] VITALS: BP 103/59
[2017-11-21] MEDS ORDERED: FLUDROCORTISONE 0.1 MG TABLET PO SCH (09:00)
[2017-11-21] MEDS ORDERED: PROPOFOL 10 MG/ML, 20ML ONE (09:14)
[2017-11-21] MEDS ORDERED: FLUD0.1T PO (10:24)
[2017-11-21] MEDS ORDERED: FENTANYL PF 100 MCG/2ML ONE (10:43)
[2017-11-21] MEDS ORDERED: MIDAZOLAM 1 MG/ML, 2ML ONE (10:43)
[2017-11-21] MEDS: LACTULOSE 20 GM/30 ML UDC PO SCH ×4 (11:00→21:00)
[2017-11-21] MEDS: FLUDROCORTISONE 0.1 MG TABLET PO SCH ×2 (11:39→21:38)
[2017-11-21] MEDS: FOLIC ACID 1 MG TABLET PO SCH (11:40)
[2017-11-21] MEDS: MIDODRINE 5 MG TABLET PO SCH ×3 (11:40→21:38)
[2017-11-21] MEDS ORDERED: EPINEPHRINE SYRINGE 0.1 MG/ML, 10ML ONE (12:05)
[2017-11-21 13:59] VITALS: BP 109/47
[2017-11-21 19:10] VITALS: BP 148/61
[2017-11-21] MEDS: INSULIN GLARGINE 100 UNITS/ML, PEN SQ-INSULIN SCH (21:38)
[2017-11-21] MEDS: PANTOPROZOLE 40MG TABLET PO SCH (21:39)
[2017-11-22 02:07] VITALS: BP 124/63
[2017-11-22] MEDS: LACTULOSE 20 GM/30 ML UDC PO SCH ×6 (05:19→14:00)
[2017-11-22 05:20] LABS: ALBUMIN 2.2 g/dL (3.4-5.0); ANION GAP 11 mmol/L (5-15); CALCIUM 8.2 mg/dL (8.5-10.1); CHLORIDE 104 mmol/L (98-107)
[2017-11-22 05:33] LABS: ALANINE AMINOTRANSFERASE 12 U/L (12-78); ALKALINE PHOSPHATASE 68 U/L (45-117); BILIRUBIN,TOTAL 2.4 mg/dL (0.2-1.0); CREATININE 5.94 mg/dL (0.7-1.3); TOTAL PROTEIN 4.8 g/dL (6.4-8.2)
[2017-11-22 05:40] LABS: MEAN CORPUSCULAR HEMOGLOBIN 33.3 pg (27.5-34.5); MEAN CORPUSCULAR HGB CONC 34.7 g/dL (33.2-36.2); MEAN CORPUSCULAR VOLUME 95.9 fL (81-97); MEAN PLATELET VOLUME 9.1 fL (7.4-10.4); RED CELL DISTRIBUTION WIDTH 19.5 % (9.4-14.8)
[2017-11-22 05:46] LABS: PLATELET COUNT 44 x10^3/uL (130-400)
[2017-11-22 06:30] LABS: BASOPHILS # (AUTO) 0.01 x10^3/uL (0-0.1); BASOPHILS % (AUTO) 0 % (0-1); EOSINOPHILS # (AUTO) 0.02 x10^3/uL (0-0.4); EOSINOPHILS % (AUTO) 1 % (1-7); LYMPHOCYTES # (AUTO) 0.77 x10^3/uL (1-3.4); LYMPHOCYTES % (AUTO) 25 % (22-44); MONOCYTES # (AUTO) 0.26 x10^3/uL (0.2-0.8); MONOCYTES % (AUTO) 8 % (2-9); NEUTROPHILS # (AUTO) 2.08 x10^3/uL (1.8-6.8); NEUTROPHILS % (AUTO) 66 % (42-75)
[2017-11-22 06:45] LABS: MD MORPH REVIEW ONLY
[2017-11-22 06:57] LABS: ANISOCYTOSIS 2+; OVALOCYTES 1+; POLYCHROMASIA 1+
[2017-11-22 07:00] LABS: SPHEROCYTES 1+
[2017-11-22] MEDS: INSULIN LISPRO 100 UNITS/ML, PEN SQ-INSULIN SCH ×4 (07:00→20:35)
[2017-11-22 07:02] LABS: <PLATELET ESTIMATE> DECREASED; <PLT MORPHOLOGY> NORMAL PLT MORPH
[2017-11-22 07:50] VITALS: BP 126/84
[2017-11-22] MEDS: FOLIC ACID 1 MG TABLET PO SCH (08:00)
[2017-11-22] MEDS: MIDODRINE 5 MG TABLET PO SCH ×3 (08:00→20:35)
[2017-11-22] MEDS: PANTOPROZOLE 40MG TABLET PO SCH ×2 (08:00→20:34)
[2017-11-22] MEDS: FLUDROCORTISONE 0.1 MG TABLET PO SCH ×2 (08:00→20:35)
[2017-11-22 14:00] VITALS: BP 104/61
[2017-11-22 19:24] VITALS: BP 122/64
[2017-11-22] MEDS ORDERED: DEXTROSE 50%, 50ML SYRINGE IVPush PRN (20:00)
[2017-11-22] MEDS ORDERED: GLUCAGON 1 MG IM PRN (20:00)
[2017-11-22] MEDS ORDERED: DEXTROSE 4 GM TAB.CHEW PO PRN (20:00)
[2017-11-22] MEDS: SODIUM CHLORIDE FLUSH 10ML SYR IVF SCH (20:35)
[2017-11-22] MEDS: INSULIN GLARGINE 100 UNITS/ML, PEN SQ-INSULIN SCH (20:36)
[2017-11-23 01:07] VITALS: BP 110/64
[2017-11-23 05:06] LABS: MEAN CORPUSCULAR HEMOGLOBIN 32.5 pg (27.5-34.5); MEAN CORPUSCULAR HGB CONC 33.5 g/dL (33.2-36.2); MEAN CORPUSCULAR VOLUME 96.8 fL (81-97); MEAN PLATELET VOLUME 8.9 fL (7.4-10.4); RED BLOOD COUNT 2.66 x10^6/uL (4.38-5.82); RED CELL DISTRIBUTION WIDTH 19.3 % (9.4-14.8)
[2017-11-23 05:10] LABS: ALBUMIN 2.2 g/dL (3.4-5.0); ANION GAP 8 mmol/L (5-15); CALCIUM 8.2 mg/dL (8.5-10.1); CHLORIDE 102 mmol/L (98-107); PLATELET COUNT 42 x10^3/uL (130-400)
[2017-11-23 05:16] LABS: ALANINE AMINOTRANSFERASE 11 U/L (12-78); ALKALINE PHOSPHATASE 72 U/L (45-117); BILIRUBIN,TOTAL 2.5 mg/dL (0.2-1.0); CREATININE 8.13 mg/dL (0.7-1.3)
[2017-11-23] MEDS: LACTULOSE 20 GM/30 ML UDC PO SCH ×2 (05:54→07:40)
[2017-11-23 06:11] LABS: ANISOCYTOSIS 2+; BASOPHILS # (AUTO) 0.03 x10^3/uL (0-0.1); BASOPHILS % (AUTO) 1 % (0-1); EOSINOPHILS % (AUTO) 0 % (1-7); LYMPHOCYTES # (AUTO) 1.17 x10^3/uL (1-3.4); LYMPHOCYTES % (AUTO) 27 % (22-44); MD MORPH REVIEW ONLY; MONOCYTES # (AUTO) 0.52 x10^3/uL (0.2-0.8); MONOCYTES % (AUTO) 12 % (2-9); NEUTROPHILS # (AUTO) 2.71 x10^3/uL (1.8-6.8); NEUTROPHILS % (AUTO) 61 % (42-75); OVALOCYTES 1+; POLYCHROMASIA 1+
[2017-11-23 06:12] LABS: <PLATELET ESTIMATE> DECREASED; <PLT MORPHOLOGY> NORMAL PLT MORPH; ECHINOCYTES 1+
[2017-11-23] MEDS: INSULIN LISPRO 100 UNITS/ML, PEN SQ-INSULIN SCH ×4 (07:00→21:26)
[2017-11-23 07:05] VITALS: BP 100/55
[2017-11-23] MEDS: FOLIC ACID 1 MG TABLET PO SCH (07:41)
[2017-11-23] MEDS: PANTOPROZOLE 40MG TABLET PO SCH ×2 (07:41→21:30)
[2017-11-23] MEDS: FLUDROCORTISONE 0.1 MG TABLET PO SCH ×2 (07:41→21:30)
[2017-11-23] MEDS: MIDODRINE 5 MG TABLET PO SCH ×3 (07:42→21:30)
[2017-11-23] MEDS: SODIUM CHLORIDE FLUSH 10ML SYR IVF SCH ×2 (07:44→21:30)
[2017-11-23 12:19] VITALS: BP 92/52
[2017-11-23 19:34] VITALS: BP 103/64
[2017-11-23] MEDS: INSULIN GLARGINE 100 UNITS/ML, PEN SQ-INSULIN SCH (21:27)
[2017-11-24 02:14] VITALS: BP 94/55
[2017-11-24 05:36] LABS: MEAN PLATELET VOLUME 8.9 fL (7.4-10.4); RED BLOOD COUNT 2.49 x10^6/uL (4.38-5.82); RED CELL DISTRIBUTION WIDTH 18.8 % (9.4-14.8)
[2017-11-24 05:37] LABS: ANION GAP 10 mmol/L (5-15); CALCIUM 7.9 mg/dL (8.5-10.1); CHLORIDE 101 mmol/L (98-107)
[2017-11-24 05:46] LABS: PLATELET COUNT 40 x10^3/uL (130-400)
[2017-11-24] MEDS: LACTULOSE 20 GM/30 ML UDC PO SCH ×2 (06:21→08:00)
[2017-11-24 06:55] LABS: BASOPHILS # (AUTO) 0.02 x10^3/uL (0-0.1); BASOPHILS % (AUTO) 1 % (0-1); EOSINOPHILS % (AUTO) 0 % (1-7); LYMPHOCYTES % (AUTO) 33 % (22-44); MD SCAN; MONOCYTES # (AUTO) 0.45 x10^3/uL (0.2-0.8); MONOCYTES % (AUTO) 12 % (2-9); NEUTROPHILS # (AUTO) 2.12 x10^3/uL (1.8-6.8); NEUTROPHILS % (AUTO) 55 % (42-75)
[2017-11-24] MEDS: INSULIN LISPRO 100 UNITS/ML, PEN SQ-INSULIN SCH ×2 (07:00→11:00)
[2017-11-24 07:37] VITALS: BP 93/54
[2017-11-24] MEDS: MIDODRINE 5 MG TABLET PO SCH ×2 (09:00→13:06)
[2017-11-24] MEDS: SODIUM CHLORIDE FLUSH 10ML SYR IVF SCH (09:00)
[2017-11-24] MEDS: PANTOPROZOLE 40MG TABLET PO SCH (09:00)
[2017-11-24] MEDS: FLUDROCORTISONE 0.1 MG TABLET PO SCH (12:59)
[2017-11-24] MEDS: FOLIC ACID 1 MG TABLET PO SCH (12:59)
[2017-11-24 13:11] VITALS: BP 99/58
== END 2017-11-24 16:03 | disposition home or self-care (01) | DRG 377 ==
LOC: ED 15:22 → EDIP 15:23 → SUATTDRO 15:47 → ED 15:55 → 4WST 16:37 → 4EST 11-20 12:53 → 4WST 11-20 12:58 → DCLOUNGE 11-24 15:50
PROVIDERS: ADMIT Hospitalist; ATTEND Internal Medicine
PROC: 30233N1 Transfusion of Nonautologous Red Blood Cells into Peripheral Vein, Percutaneous Approach (ICD-10-PCS; principal; 2017-11-19)
PROC: 5A1D70Z Performance of Urinary Filtration, Intermittent, Less than 6 Hours Per Day (ICD-10-PCS; 2017-11-19)
PROC: 0W3P8ZZ Control Bleeding in Gastrointestinal Tract, Via Natural or Artificial Opening Endoscopic (ICD-10-PCS; 2017-11-21)
PROC: 3E0G8GC Introduction of Other Therapeutic Substance into Upper GI, Via Natural or Artificial Opening Endoscopic (ICD-10-PCS; 2017-11-21)
PROC: 5A1D70Z Performance of Urinary Filtration, Intermittent, Less than 6 Hours Per Day (ICD-10-PCS; 2017-11-21)
DX: K31.82 Dieulafoy lesion (hemorrhagic) of stomach and duodenum (principal); E43 Unspecified severe protein-calorie malnutrition; D61.818 Other pancytopenia; E11.22 Type 2 diabetes mellitus with diabetic chronic kidney disease; E66.01 Morbid (severe) obesity due to excess calories; D62 Acute posthemorrhagic anemia; I12.0 Hypertensive chronic kidney disease with stage 5 chronic kidney disease or end stage renal disease; N18.6 End stage renal disease; Z68.42 Body mass index [BMI] 45.0-49.9, adult; N25.0 Renal osteodystrophy; K72.90 Hepatic failure, unspecified without coma; K74.60 Unspecified cirrhosis of liver; D63.1 Anemia in chronic kidney disease; K75.81 Nonalcoholic steatohepatitis (NASH); Z79.4 Long term (current) use of insulin; Z87.11 Personal history of peptic ulcer disease; Z99.2 Dependence on renal dialysis
CPT/HCPCS: 36415; 36430; 80048; 80053; 82140; 82962; 83036; 83735; 84100; 84443; 85014; 85018; 85025; 85610; 86677; 86850; 86900; 86923; 93005; 99291; J0882; J2250; J2704; J3010; C9113; J1815; J7030; P9016

== ENCOUNTER 2017-11-28 12:28 | Inpatient (IN) | payer MEDICAID ==
[~2017-11-28] VITALS: Ht 175.3 cm; Wt 152.1 kg
[~2017-11-28 12:28] MED LIST changes: +LANT1000 PO; +ONDA8TAB16 SL
[2017-11-28 15:08] VITALS: BP 105/68
[2017-11-28 16:11] LABS: ALANINE AMINOTRANSFERASE 14 U/L (12-78); ALBUMIN 2.5 g/dL (3.4-5.0); ANION GAP 10 mmol/L (5-15); CALCIUM 8.3 mg/dL (8.5-10.1); CHLORIDE 105 mmol/L (98-107); CREATININE 8.76 mg/dL (0.7-1.3)
[2017-11-28 16:13] LABS: ALKALINE PHOSPHATASE 85 U/L (45-117); BILIRUBIN,TOTAL 1.5 mg/dL (0.2-1.0); TOTAL PROTEIN 5.4 g/dL (6.4-8.2)
[2017-11-28 16:26] LABS: BASOPHILS # (AUTO) 0.01 x10^3/uL (0-0.1); BASOPHILS % (AUTO) 1 % (0-1); EOSINOPHILS # (AUTO) 0.03 x10^3/uL (0-0.4); EOSINOPHILS % (AUTO) 1 % (1-7); LYMPHOCYTES # (AUTO) 1.01 x10^3/uL (1-3.4); LYMPHOCYTES % (AUTO) 46 % (22-44); MD SCAN; MEAN CORPUSCULAR HEMOGLOBIN 32.5 pg (27.5-34.5); MEAN CORPUSCULAR HGB CONC 33.6 g/dL (33.2-36.2); MEAN CORPUSCULAR VOLUME 96.8 fL (81-97); MEAN PLATELET VOLUME 8.5 fL (7.4-10.4); MONOCYTES # (AUTO) 0.15 x10^3/uL (0.2-0.8); MONOCYTES % (AUTO) 7 % (2-9); NEUTROPHILS # (AUTO) 1.01 x10^3/uL (1.8-6.8); NEUTROPHILS % (AUTO) 46 % (42-75); RED BLOOD COUNT 2.47 x10^6/uL (4.38-5.82); RED CELL DISTRIBUTION WIDTH 20.5 % (9.4-14.8)
[2017-11-28 16:35] LABS: PLATELET COUNT 43 x10^3/uL (130-400)
[2017-11-28] MEDS: HEPARIN 5,000 UNITS/ML, 1ML SQ SCH (16:44)
[2017-11-28] MEDS ORDERED: LACTULOSE 20 GM/30 ML UDC PO PRN (17:00)
[2017-11-28] MEDS: LACTULOSE 20 GM/30 ML UDC PO SCH ×2 (17:26→22:42)
[2017-11-28] MEDS ORDERED: DEXTROSE 50%, 50ML SYRINGE IVPush PRN (19:00)
[2017-11-28] MEDS ORDERED: GLUCAGON 1 MG IM PRN (19:00)
[2017-11-28] MEDS ORDERED: DEXTROSE 4 GM TAB.CHEW PO PRN (19:00)
[2017-11-28] MEDS: SODIUM CHLORIDE FLUSH 10ML SYR IVF SCH (21:00)
[2017-11-28 22:29] VITALS: BP 92/41
[2017-11-28] MEDS: RIFAXIMIN 550 MG TABLET PO SCH (22:41)
[2017-11-28] MEDS: FLUDROCORTISONE 0.1 MG TABLET PO SCH (22:41)
[2017-11-28] MEDS: MIDODRINE 5 MG TABLET PO SCH (22:42)
[2017-11-28] MEDS: PANTOPROZOLE 40MG TABLET PO SCH (22:42)
[2017-11-29] MEDS: HEPARIN 5,000 UNITS/ML, 1ML SQ SCH ×2 (01:32→08:37)
[2017-11-29 01:48] VITALS: BP 92/58
[2017-11-29 05:50] LABS: ALANINE AMINOTRANSFERASE 13 U/L (12-78); ALBUMIN 2.2 g/dL (3.4-5.0); ANION GAP 7 mmol/L (5-15); CALCIUM 7.9 mg/dL (8.5-10.1); CHLORIDE 107 mmol/L (98-107); CREATININE 5.58 mg/dL (0.7-1.3)
[2017-11-29 05:52] LABS: ALKALINE PHOSPHATASE 72 U/L (45-117); BILIRUBIN,TOTAL 1.4 mg/dL (0.2-1.0); TOTAL PROTEIN 4.9 g/dL (6.4-8.2)
[2017-11-29 06:02] LABS: MEAN CORPUSCULAR HEMOGLOBIN 33.4 pg (27.5-34.5); MEAN CORPUSCULAR HGB CONC 34.3 g/dL (33.2-36.2); MEAN CORPUSCULAR VOLUME 97.6 fL (81-97); MEAN PLATELET VOLUME 8.7 fL (7.4-10.4); RED BLOOD COUNT 2.24 x10^6/uL (4.38-5.82); RED CELL DISTRIBUTION WIDTH 20.4 % (9.4-14.8)
[2017-11-29 06:15] LABS: PLATELET COUNT 39 x10^3/uL (130-400)
[2017-11-29 06:21] LABS: BASOPHILS # (AUTO) 0.01 x10^3/uL (0-0.1); BASOPHILS % (AUTO) 1 % (0-1); EOSINOPHILS # (AUTO) 0.03 x10^3/uL (0-0.4); EOSINOPHILS % (AUTO) 2 % (1-7); LYMPHOCYTES # (AUTO) 0.99 x10^3/uL (1-3.4); LYMPHOCYTES % (AUTO) 51 % (22-44); MD MORPH REVIEW ONLY; MONOCYTES # (AUTO) 0.15 x10^3/uL (0.2-0.8); MONOCYTES % (AUTO) 8 % (2-9); NEUTROPHILS # (AUTO) 0.77 x10^3/uL (1.8-6.8); NEUTROPHILS % (AUTO) 40 % (42-75)
[2017-11-29 06:22] LABS: POLYCHROMASIA 1+
[2017-11-29 06:23] LABS: <PLATELET ESTIMATE> DECREASED; <PLT MORPHOLOGY> NORMAL PLT MORPH; ANISOCYTOSIS 1+; OVALOCYTES 1+
[2017-11-29 08:17] VITALS: BP 128/50
[2017-11-29] MEDS: LACTULOSE 20 GM/30 ML UDC PO SCH ×3 (08:36→21:20)
[2017-11-29] MEDS: RIFAXIMIN 550 MG TABLET PO SCH ×2 (08:37→21:17)
[2017-11-29] MEDS: MIDODRINE 5 MG TABLET PO SCH ×3 (08:37→21:18)
[2017-11-29] MEDS: PANTOPROZOLE 40MG TABLET PO SCH ×2 (08:37→21:17)
[2017-11-29] MEDS: FLUDROCORTISONE 0.1 MG TABLET PO SCH ×2 (08:37→21:20)
[2017-11-29] MEDS: FOLIC ACID 1 MG TABLET PO SCH (08:37)
[2017-11-29] MEDS: SODIUM CHLORIDE FLUSH 10ML SYR IVF SCH ×2 (08:38→21:20)
[2017-11-29 12:53] VITALS: BP 132/62
[2017-11-29 19:40] VITALS: BP 91/52
[2017-11-30] VITALS (7 sets, daily range): BP systolic 85–105; BP diastolic 41–63
[2017-11-30 05:49] LABS: MEAN CORPUSCULAR HGB CONC 33.5 g/dL (33.2-36.2); MEAN CORPUSCULAR VOLUME 98.4 fL (81-97); MEAN PLATELET VOLUME 8.3 fL (7.4-10.4); RED BLOOD COUNT 2.33 x10^6/uL (4.38-5.82); RED CELL DISTRIBUTION WIDTH 20.2 % (9.4-14.8)
[2017-11-30 05:54] LABS: CHLORIDE 108 mmol/L (98-107); PLATELET COUNT 46 x10^3/uL (130-400)
[2017-11-30 06:06] LABS: % IRON SATURATION 53 % (20-55); ALANINE AMINOTRANSFERASE 13 U/L (12-78); ALBUMIN 2.1 g/dL (3.4-5.0); ALKALINE PHOSPHATASE 66 U/L (45-117); ANION GAP 10 mmol/L (5-15); BILIRUBIN,TOTAL 1.8 mg/dL (0.2-1.0); CALCIUM 8.1 mg/dL (8.5-10.1); CREATININE 7.58 mg/dL (0.7-1.3); IRON LEVEL 117 mcg/dL (65-175); TOTAL IRON BINDING CAPACITY 222 mcg/dL (250-450); TOTAL PROTEIN 4.6 g/dL (6.4-8.2)
[2017-11-30 06:17] LABS: BASOPHILS # (AUTO) 0.02 x10^3/uL (0-0.1); BASOPHILS % (AUTO) 1 % (0-1); EOSINOPHILS # (AUTO) 0.06 x10^3/uL (0-0.4); EOSINOPHILS % (AUTO) 2 % (1-7); LYMPHOCYTES # (AUTO) 1.14 x10^3/uL (1-3.4); LYMPHOCYTES % (AUTO) 42 % (22-44); MD SCAN; MONOCYTES # (AUTO) 0.23 x10^3/uL (0.2-0.8); MONOCYTES % (AUTO) 8 % (2-9); NEUTROPHILS # (AUTO) 1.26 x10^3/uL (1.8-6.8); NEUTROPHILS % (AUTO) 47 % (42-75)
[2017-11-30] MEDS: SODIUM CHLORIDE FLUSH 10ML SYR IVF SCH ×2 (08:24→20:36)
[2017-11-30] MEDS: RIFAXIMIN 550 MG TABLET PO SCH ×3 (08:24→20:37)
[2017-11-30] MEDS: FOLIC ACID 1 MG TABLET PO SCH (08:24)
[2017-11-30] MEDS: FLUDROCORTISONE 0.1 MG TABLET PO SCH ×2 (08:24→20:36)
[2017-11-30] MEDS: PANTOPROZOLE 40MG TABLET PO SCH ×2 (08:24→20:37)
[2017-11-30] MEDS: LACTULOSE 20 GM/30 ML UDC PO SCH ×3 (08:24→20:37)
[2017-11-30] MEDS: MIDODRINE 5 MG TABLET PO SCH ×3 (08:24→20:37)
[2017-12-01 02:09] VITALS: BP 90/53
[2017-12-01 05:56] LABS: MEAN CORPUSCULAR HEMOGLOBIN 33.8 pg (27.5-34.5); MEAN CORPUSCULAR HGB CONC 34.2 g/dL (33.2-36.2); MEAN CORPUSCULAR VOLUME 98.8 fL (81-97); RED BLOOD COUNT 2.42 x10^6/uL (4.38-5.82); RED CELL DISTRIBUTION WIDTH 20.4 % (9.4-14.8)
[2017-12-01 05:58] LABS: CHLORIDE 109 mmol/L (98-107)
[2017-12-01 06:05] LABS: ALBUMIN 2.1 g/dL (3.4-5.0); ANION GAP 8 mmol/L (5-15); CALCIUM 7.9 mg/dL (8.5-10.1); CREATININE 9.69 mg/dL (0.7-1.3)
[2017-12-01 06:31] LABS: BASOPHILS # (AUTO) 0.02 x10^3/uL (0-0.1); BASOPHILS % (AUTO) 1 % (0-1); EOSINOPHILS # (AUTO) 0.07 x10^3/uL (0-0.4); EOSINOPHILS % (AUTO) 2 % (1-7); LYMPHOCYTES # (AUTO) 1.01 x10^3/uL (1-3.4); LYMPHOCYTES % (AUTO) 31 % (22-44); MD SCAN; MEAN PLATELET VOLUME 7.9 fL (7.4-10.4); MONOCYTES # (AUTO) 0.25 x10^3/uL (0.2-0.8); MONOCYTES % (AUTO) 8 % (2-9); NEUTROPHILS # (AUTO) 1.97 x10^3/uL (1.8-6.8); NEUTROPHILS % (AUTO) 59 % (42-75)
[2017-12-01 06:34] LABS: PLATELET COUNT 42 x10^3/uL (130-400)
[2017-12-01 07:22] VITALS: BP 92/55
[2017-12-01] MEDS ORDERED: INSU100V8 SQ (07:59)
[2017-12-01] MEDS: MIDODRINE 5 MG TABLET PO SCH (08:04)
[2017-12-01] MEDS: LACTULOSE 20 GM/30 ML UDC PO SCH (12:19)
[2017-12-01] MEDS: SODIUM CHLORIDE FLUSH 10ML SYR IVF SCH (12:19)
[2017-12-01] MEDS: PANTOPROZOLE 40MG TABLET PO SCH (12:19)
[2017-12-01] MEDS: FOLIC ACID 1 MG TABLET PO SCH (12:19)
[2017-12-01] MEDS: RIFAXIMIN 550 MG TABLET PO SCH (12:19)
[2017-12-01] MEDS: FLUDROCORTISONE 0.1 MG TABLET PO SCH (12:19)
[2017-12-01 13:30] VITALS: BP 110/63
[2017-12-01] MEDS ORDERED: INSULIN GLARGINE 100 UNITS/ML, PEN SQ-INSULIN SCH (21:00)
== END 2017-12-01 15:05 | disposition home or self-care (01) | DRG 441 ==
LOC: 4EST 14:16 → DCLOUNGE 12-01 14:58
PROVIDERS: ADMIT Family Medicine; ATTEND Family Medicine
PROC: 5A1D70Z Performance of Urinary Filtration, Intermittent, Less than 6 Hours Per Day (ICD-10-PCS; 2017-11-28)
PROC: 5A1D70Z Performance of Urinary Filtration, Intermittent, Less than 6 Hours Per Day (ICD-10-PCS; principal; 2017-12-01)
DX: K72.90 Hepatic failure, unspecified without coma (principal); E43 Unspecified severe protein-calorie malnutrition; G93.41 Metabolic encephalopathy; D61.818 Other pancytopenia; J18.9 Pneumonia, unspecified organism; I95.9 Hypotension, unspecified; E11.22 Type 2 diabetes mellitus with diabetic chronic kidney disease; N18.6 End stage renal disease; I12.0 Hypertensive chronic kidney disease with stage 5 chronic kidney disease or end stage renal disease; Z68.42 Body mass index [BMI] 45.0-49.9, adult; E11.649 Type 2 diabetes mellitus with hypoglycemia without coma; D63.1 Anemia in chronic kidney disease; E11.65 Type 2 diabetes mellitus with hyperglycemia; E55.9 Vitamin D deficiency, unspecified; R62.7 Adult failure to thrive; E66.01 Morbid (severe) obesity due to excess calories; K27.9 Peptic ulcer, site unspecified, unspecified as acute or chronic, without hemorrhage or perforation; K76.0 Fatty (change of) liver, not elsewhere classified; Z79.4 Long term (current) use of insulin; Z87.01 Personal history of pneumonia (recurrent); Z87.11 Personal history of peptic ulcer disease; Z99.2 Dependence on renal dialysis; Z88.1 Allergy status to other antibiotic agents; Z90.49 Acquired absence of other specified parts of digestive tract
CPT/HCPCS: 36415; 80053; 80069; 82140; 82306; 82728; 82962; 83036; 83540; 83550; 83735; 83970; 84100; 85025; J1644; J1815

== ENCOUNTER 2018-02-02 10:04 | Day surgery (SDC) | payer MEDICAID ==
[~2018-02-02] VITALS: Ht 175.3 cm; Wt 149.1 kg
[~2018-02-02 10:04] MED LIST changes: +HEPARIN 1,000 UNITS/ML, 10ML ONE; +INSU100I13 SQ-INSULIN; +INSU100V8 SQ; +LACT10SO28 PO; +MIDO10TA PO
[2018-02-02 10:50] VITALS: BP 118/73
[2018-02-02] MEDS ORDERED: THROMBIN 5,000 UNIT VIAL TP ONE (14:35)
[2018-02-02] MEDS ORDERED: PROTAMINE SULFATE 10 MG/ML, 5ML ONE (14:35)
[2018-02-02] MEDS ORDERED: PROPOFOL 10 MG/ML, 20ML ONE (14:40)
[2018-02-02] MEDS ORDERED: DEXAMETHASONE 4 MG/ML, 1ML ONE (14:40)
[2018-02-02] MEDS ORDERED: ONDANSETRON 2MG/ML, 2ML ONE (14:40)
[2018-02-02] MEDS ORDERED: CEFAZOLIN 1,000 MG ONE (14:40)
[2018-02-02] MEDS ORDERED: FENTANYL PF 100 MCG/2ML ONE ×2 (14:41→15:38)
[2018-02-02] MEDS ORDERED: ONDANSETRON ODT 8 MG PO PRN (15:00)
[2018-02-02] MEDS ORDERED: OXYcodone 5 MG/5 ML ORAL.SOL UDC PO PRN (15:00)
[2018-02-02] MEDS ORDERED: FENTANYL PF 100 MCG/2ML IV PRN (15:00)
[2018-02-02] MEDS ORDERED: HYDROcodone/APAP 7.5-325MG/15ML UDC PO PRN (15:00)
[2018-02-02] MEDS ORDERED: LABETALOL 5MG/ML, 20ML IV PRN (15:00)
[2018-02-02] MEDS ORDERED: PROMETHAZINE 25 MG/ML, 1ML IV PRN (15:00)
[2018-02-02] MEDS ORDERED: hydrALAzine 20 MG/ML, 1ML IV PRN (15:00)
[2018-02-02] MEDS ORDERED: ACETAMINOPHEN 325 MG TABLET PO PRN (15:00)
[2018-02-02] MEDS ORDERED: HYDROcodone/APAP 7.5-325MG/15ML UDC ONE (15:39)
[2018-02-02] MEDS ORDERED: HEPARIN 1,000 UNITS/ML, 10ML PERMACATH ONE (16:00)
== END 2018-02-02 17:35 ==
LOC: OUT 10:04
PROVIDERS: ATTEND Surgery Vascular Surgery
DX: T82.590A Other mechanical complication of surgically created arteriovenous fistula, initial encounter (principal); E66.01 Morbid (severe) obesity due to excess calories; I12.0 Hypertensive chronic kidney disease with stage 5 chronic kidney disease or end stage renal disease; N18.6 End stage renal disease; Z68.42 Body mass index [BMI] 45.0-49.9, adult; Y83.8 Other surgical procedures as the cause of abnormal reaction of the patient, or of later complication, without mention of misadventure at the time of the procedure; Y92.89 Other specified places as the place of occurrence of the external cause
CPT/HCPCS: 36415; 36832; 80047; 82962; J0690; J1100; J1644; J2405; J2704; J3010; J2720

== ENCOUNTER 2018-03-21 08:45 | Inpatient (IN) | payer MEDICAID ==
[2018-03-21] VITALS (8 sets, daily range): BP systolic 90–116; BP diastolic 37–64
[~2018-03-21] VITALS: Ht 167.6 cm; Wt 152.6 kg
[~2018-03-21 08:45] MED LIST changes: -HEPARIN 1,000 UNITS/ML, 10ML ONE
[2018-03-21] MEDS ORDERED: SODIUM CHLORIDE FLUSH 10ML SYR IVF ONE (10:30)
[2018-03-21] MEDS: SODIUM CHLORIDE 0.9% 1,000 ML IV SCH (10:32)
[2018-03-21 10:37] LABS: ALBUMIN 2.2 g/dL (3.4-5.0); ANION GAP 12 mmol/L (5-15); CALCIUM 8.1 mg/dL (8.5-10.1); CHLORIDE 103 mmol/L (98-107)
[2018-03-21 10:41] LABS: ALANINE AMINOTRANSFERASE 13 U/L (12-78); ALKALINE PHOSPHATASE 99 U/L (45-117); BILIRUBIN,TOTAL 1.4 mg/dL (0.2-1.0); CREATININE 6.05 mg/dL (0.7-1.3)
[2018-03-21 10:44] LABS: MEAN CORPUSCULAR HEMOGLOBIN 34.5 pg (27.5-34.5); MEAN CORPUSCULAR HGB CONC 32.9 g/dL (33.2-36.2); MEAN PLATELET VOLUME 9.6 fL (7.4-10.4); RED BLOOD COUNT 1.78 x10^6/uL (4.38-5.82); RED CELL DISTRIBUTION WIDTH 18.6 % (9.4-14.8)
[2018-03-21 10:47] LABS: PLATELET COUNT 49 x10^3/uL (130-400)
[2018-03-21 10:48] LABS: MD YES
[2018-03-21 10:49] LABS: BASOS#(MANUAL) 0.03 x10^3/uL (0-0.1); BASOS% (MANUAL) 1 % (0-1)
[2018-03-21 10:51] LABS: ANISOCYTOSIS 1+; EOS#(MANUAL) 0.07 x10^3/uL (0.0-0.4); EOS% (MANUAL) 2 % (1-7); LYMPH#(MANUAL) 1.39 x10^3/uL (1-3.4); LYMPHS% (MANUAL) 41 % (22-44); MONOS#(MANUAL) 0.07 x10^3/uL (0.3-2.7); MONOS% (MANUAL) 2 % (2-9); OVALOCYTES 1+; POLYCHROMASIA 1+; SEG#(MANUAL) 1.84 x10^3/uL (1.8-6.8); SEGS% (MANUAL) 54 % (42-75)
[2018-03-21 10:52] LABS: <PLATELET ESTIMATE> DECREASED; <PLT MORPHOLOGY> NORMAL PLT MORPH
[2018-03-21] MEDS ORDERED: morphine SULFATE 10 MG/ML, 1ML IVPush PRN (11:00)
[2018-03-21] MEDS: FLUDROCORTISONE 0.1 MG TABLET PO SCH (11:00)
[2018-03-21] MEDS ORDERED: ENALAPRILAT 1.25 MG/ML, 2ML IVPush PRN (11:00)
[2018-03-21] MEDS ORDERED: ONDANSETRON 2MG/ML, 2ML IVPush PRN (11:00)
[2018-03-21] MEDS: INSULIN LISPRO 100 UNITS/ML, PEN SQ-INSULIN SCH ×3 (11:00→20:22)
[2018-03-21] MEDS: FOLIC ACID 1 MG TABLET PO SCH (11:00)
[2018-03-21] MEDS: LACTULOSE 10 GM/15 ML UDC PO SCH ×3 (11:00→20:20)
[2018-03-21] MEDS: MIDODRINE 5 MG TABLET PO SCH ×3 (11:00→20:20)
[2018-03-21] MEDS ORDERED: HYDROcodone/APAP 5/325 TABLET PO PRN (11:00)
[2018-03-21] MEDS ORDERED: ACETAMINOPHEN 325 MG TABLET PO PRN (11:00)
[2018-03-21] MEDS: PANTOPRAZOLE 40 MG IV IVPush SCH ×2 (16:41→21:38)
[2018-03-21] MEDS: INSULIN GLARGINE 100 UNITS/ML, PEN SQ-INSULIN SCH (21:39)
[2018-03-22 03:32] VITALS: BP 101/62
[2018-03-22 03:35] LABS: MEAN CORPUSCULAR HGB CONC 34.5 g/dL (33.2-36.2); MEAN CORPUSCULAR VOLUME 101.4 fL (81-97); MEAN PLATELET VOLUME 8.8 fL (7.4-10.4); RED BLOOD COUNT 2.29 x10^6/uL (4.38-5.82); RED CELL DISTRIBUTION WIDTH 19.5 % (9.4-14.8)
[2018-03-22 03:36] LABS: PLATELET COUNT 33 x10^3/uL (130-400)
[2018-03-22 03:37] LABS: MD YES
[2018-03-22 03:40] LABS: ANISOCYTOSIS 1+; LYMPH#(MANUAL) 0.96 x10^3/uL (1-3.4); LYMPHS% (MANUAL) 37 % (22-44); MONOS#(MANUAL) 0.16 x10^3/uL (0.3-2.7); MONOS% (MANUAL) 6 % (2-9); POLYCHROMASIA 1+; SEG#(MANUAL) 1.48 x10^3/uL (1.8-6.8); SEGS% (MANUAL) 57 % (42-75)
[2018-03-22 03:41] LABS: <PLATELET ESTIMATE> DECREASED; <PLT MORPHOLOGY> NORMAL PLT MORPH; OVALOCYTES 1+
[2018-03-22 03:42] LABS: ALANINE AMINOTRANSFERASE 13 U/L (12-78); ALBUMIN 2.1 g/dL (3.4-5.0); ANION GAP 8 mmol/L (5-15); CALCIUM 8.2 mg/dL (8.5-10.1); CHLORIDE 103 mmol/L (98-107); CREATININE 5.58 mg/dL (0.7-1.3)
[2018-03-22 03:44] LABS: ALKALINE PHOSPHATASE 74 U/L (45-117); BILIRUBIN,TOTAL 2.6 mg/dL (0.2-1.0); TOTAL PROTEIN 4.7 g/dL (6.4-8.2)
[2018-03-22] MEDS ORDERED: LACTULOSE 3.3 GM/5 ML ORAL.SOL RC ONE (04:00)
[2018-03-22] MEDS: SODIUM CHLORIDE 0.9% 1,000 ML IV SCH ×2 (05:32→16:38)
[2018-03-22 07:00] VITALS: BP 117/51
[2018-03-22] MEDS: INSULIN LISPRO 100 UNITS/ML, PEN SQ-INSULIN SCH ×4 (08:00→21:00)
[2018-03-22] MEDS: LACTULOSE 10 GM/15 ML UDC PO SCH ×3 (09:00→21:30)
[2018-03-22] MEDS: FOLIC ACID 1 MG TABLET PO SCH (09:00)
[2018-03-22] MEDS: FLUDROCORTISONE 0.1 MG TABLET PO SCH (09:00)
[2018-03-22] MEDS: MIDODRINE 5 MG TABLET PO SCH ×3 (09:00→21:32)
[2018-03-22] MEDS: PANTOPRAZOLE 40 MG IV IVPush SCH ×2 (10:54→21:26)
[2018-03-22 13:40] VITALS: BP 98/66
[2018-03-22] MEDS ORDERED: LACTULOSE 20 GM/30 ML UDC PO SCH (16:00)
[2018-03-22] MEDS: RIFAXIMIN 550 MG TABLET PO SCH ×2 (16:28→21:32)
[2018-03-22 18:43] VITALS: BP 127/59
[2018-03-22] MEDS: INSULIN GLARGINE 100 UNITS/ML, PEN SQ-INSULIN SCH (21:27)
[2018-03-23] VITALS (9 sets, daily range): BP systolic 102–129; BP diastolic 47–68
[2018-03-23] MEDS: SODIUM CHLORIDE 0.9% 1,000 ML IV SCH ×2 (03:13→21:24)
[2018-03-23 03:36] LABS: INTERNATIONAL NORMALIZED RATIO 1.37 (0.93-1.1)
[2018-03-23 03:37] LABS: ANION GAP 10 mmol/L (5-15); CHLORIDE 106 mmol/L (98-107)
[2018-03-23 03:40] LABS: ALANINE AMINOTRANSFERASE 13 U/L (12-78); ALKALINE PHOSPHATASE 82 U/L (45-117); CREATININE 7.36 mg/dL (0.7-1.3); MEAN CORPUSCULAR HEMOGLOBIN 35.1 pg (27.5-34.5); MEAN CORPUSCULAR HGB CONC 34.5 g/dL (33.2-36.2); MEAN CORPUSCULAR VOLUME 101.6 fL (81-97); RED BLOOD COUNT 2.25 x10^6/uL (4.38-5.82); RED CELL DISTRIBUTION WIDTH 19.5 % (9.4-14.8); TOTAL PROTEIN 4.6 g/dL (6.4-8.2)
[2018-03-23 03:57] LABS: MEAN PLATELET VOLUME 8.7 fL (7.4-10.4)
[2018-03-23 03:58] LABS: BASOPHILS # (AUTO) 0.02 x10^3/uL (0-0.1); BASOPHILS % (AUTO) 1 % (0-1); EOSINOPHILS # (AUTO) 0.06 x10^3/uL (0-0.4); EOSINOPHILS % (AUTO) 2 % (1-7); LYMPHOCYTES # (AUTO) 0.91 x10^3/uL (1-3.4); LYMPHOCYTES % (AUTO) 28 % (22-44); MD SCAN; MONOCYTES # (AUTO) 0.28 x10^3/uL (0.2-0.8); MONOCYTES % (AUTO) 9 % (2-9); NEUTROPHILS # (AUTO) 2.01 x10^3/uL (1.8-6.8); NEUTROPHILS % (AUTO) 61 % (42-75)
[2018-03-23 03:59] LABS: PLATELET COUNT 41 x10^3/uL (130-400)
[2018-03-23] MEDS: INSULIN LISPRO 100 UNITS/ML, PEN SQ-INSULIN SCH ×4 (07:30→21:00)
[2018-03-23] MEDS: RIFAXIMIN 550 MG TABLET PO SCH ×3 (09:00→21:25)
[2018-03-23] MEDS: FOLIC ACID 1 MG TABLET PO SCH ×2 (09:00→12:35)
[2018-03-23] MEDS: MIDODRINE 5 MG TABLET PO SCH ×4 (09:00→21:25)
[2018-03-23] MEDS: FLUDROCORTISONE 0.1 MG TABLET PO SCH ×2 (09:00→12:34)
[2018-03-23 09:14] LABS: PLATELET COUNT 51 x10^3/uL (130-400)
[2018-03-23] MEDS: LACTULOSE 10 GM/15 ML UDC PO SCH ×3 (09:24→21:24)
[2018-03-23] MEDS: PANTOPRAZOLE 40 MG IV IVPush SCH ×3 (09:50→21:26)
[2018-03-23] MEDS ORDERED: LABETALOL 5MG/ML, 20ML IV PRN (11:00)
[2018-03-23] MEDS ORDERED: ALBUTEROL SULFATE 2.5 MG/3 ML NPPB PRN (11:00)
[2018-03-23] MEDS ORDERED: PROMETHAZINE 25 MG SUPP PR PRN (11:00)
[2018-03-23] MEDS ORDERED: FENTANYL PF 100 MCG/2ML IV PRN (11:00)
[2018-03-23] MEDS ORDERED: OXYcodone 5 MG/5 ML ORAL.SOL UDC PO PRN (11:00)
[2018-03-23] MEDS ORDERED: MIDAZOLAM 1 MG/ML, 2ML IV PRN (11:00)
[2018-03-23] MEDS ORDERED: LORazepam 2 MG/ML, 1ML IVPush PRN (11:00)
[2018-03-23] MEDS ORDERED: ONDANSETRON 2MG/ML, 2ML IV PRN (11:00)
[2018-03-23] MEDS ORDERED: MEPERIDINE/PF 25MG/0.5ML IVPush PRN (11:00)
[2018-03-23] MEDS ORDERED: PROMETHAZINE 25 MG/ML, 1ML IM PRN (11:00)
[2018-03-23] MEDS ORDERED: HYDROmorphone 1 MG/ML, 1ML IV PRN (11:00)
[2018-03-23] MEDS ORDERED: ONDANSETRON ODT 8 MG PO PRN (11:00)
[2018-03-23] MEDS ORDERED: hydrALAzine 20 MG/ML, 1ML IV PRN (11:00)
[2018-03-23] MEDS ORDERED: PROPOFOL 10 MG/ML, 20ML ONE (15:31)
[2018-03-23] MEDS: INSULIN GLARGINE 100 UNITS/ML, PEN SQ-INSULIN SCH (21:26)
[2018-03-24 02:57] VITALS: BP 115/65
[2018-03-24 05:04] LABS: INTERNATIONAL NORMALIZED RATIO 1.4 (0.93-1.1); PROTHROMBIN TIME 14.3 Seconds (9.6-11.5)
[2018-03-24 05:09] LABS: ALBUMIN 2.1 g/dL (3.4-5.0); ANION GAP 10 mmol/L (5-15); CALCIUM 7.5 mg/dL (8.5-10.1); CHLORIDE 103 mmol/L (98-107)
[2018-03-24 05:12] LABS: ALANINE AMINOTRANSFERASE 14 U/L (12-78); ALKALINE PHOSPHATASE 79 U/L (45-117); BILIRUBIN,TOTAL 2.1 mg/dL (0.2-1.0); CREATININE 7.01 mg/dL (0.7-1.3); TOTAL PROTEIN 4.9 g/dL (6.4-8.2)
[2018-03-24 05:45] LABS: MEAN CORPUSCULAR HEMOGLOBIN 34.9 pg (27.5-34.5); MEAN CORPUSCULAR HGB CONC 34.3 g/dL (33.2-36.2); MEAN CORPUSCULAR VOLUME 101.6 fL (81-97); MEAN PLATELET VOLUME 9.3 fL (7.4-10.4); RED BLOOD COUNT 2.39 x10^6/uL (4.38-5.82); RED CELL DISTRIBUTION WIDTH 18.7 % (9.4-14.8)
[2018-03-24 05:46] LABS: PLATELET COUNT 36 x10^3/uL (130-400)
[2018-03-24 05:48] LABS: MD YES
[2018-03-24 05:50] LABS: ANISOCYTOSIS 1+; EOS#(MANUAL) 0.07 x10^3/uL (0.0-0.4); EOS% (MANUAL) 1 % (1-7); LYMPH#(MANUAL) 0.85 x10^3/uL (1-3.4); LYMPHS% (MANUAL) 13 % (22-44); MONOS#(MANUAL) 0.46 x10^3/uL (0.3-2.7); MONOS% (MANUAL) 7 % (2-9); SEG#(MANUAL) 5.14 x10^3/uL (1.8-6.8); SEGS% (MANUAL) 79 % (42-75)
[2018-03-24 05:51] LABS: <PLATELET ESTIMATE> DECREASED; <PLT MORPHOLOGY> NORMAL PLT MORPH; HYPOCHROMIA 1+; OVALOCYTES 1+; POLYCHROMASIA 1+
[2018-03-24] MEDS: INSULIN LISPRO 100 UNITS/ML, PEN SQ-INSULIN SCH ×4 (07:00→21:00)
[2018-03-24 07:42] VITALS: BP 103/59
[2018-03-24] MEDS: SODIUM CHLORIDE 0.9% 1,000 ML IV SCH (07:51)
[2018-03-24] MEDS: LACTULOSE 10 GM/15 ML UDC PO SCH ×3 (08:03→21:33)
[2018-03-24] MEDS: PANTOPRAZOLE 40 MG IV IVPush SCH ×2 (08:03→21:37)
[2018-03-24] MEDS: RIFAXIMIN 550 MG TABLET PO SCH ×2 (08:04→21:36)
[2018-03-24] MEDS: FLUDROCORTISONE 0.1 MG TABLET PO SCH (08:04)
[2018-03-24] MEDS: MIDODRINE 5 MG TABLET PO SCH ×3 (08:04→21:36)
[2018-03-24] MEDS: FOLIC ACID 1 MG TABLET PO SCH (08:04)
[2018-03-24] MEDS: PROPRANOLOL 10 MG TABLET PO SCH (11:13)
[2018-03-24 14:52] VITALS: BP 110/64
[2018-03-24 19:54] VITALS: BP 106/66
[2018-03-24] MEDS: INSULIN GLARGINE 100 UNITS/ML, PEN SQ-INSULIN SCH (21:35)
[2018-03-25 01:56] VITALS: BP 124/71
[2018-03-25 04:58] LABS: MEAN CORPUSCULAR HEMOGLOBIN 34.6 pg (27.5-34.5); MEAN CORPUSCULAR HGB CONC 33.8 g/dL (33.2-36.2); MEAN CORPUSCULAR VOLUME 102.3 fL (81-97); MEAN PLATELET VOLUME 9.2 fL (7.4-10.4); RED BLOOD COUNT 2.36 x10^6/uL (4.38-5.82); RED CELL DISTRIBUTION WIDTH 19.3 % (9.4-14.8)
[2018-03-25 05:05] LABS: PLATELET COUNT 43 x10^3/uL (130-400)
[2018-03-25 05:24] LABS: BASOPHILS # (AUTO) 0.02 x10^3/uL (0-0.1); BASOPHILS % (AUTO) 0 % (0-1); EOSINOPHILS # (AUTO) 0.17 x10^3/uL (0-0.4); EOSINOPHILS % (AUTO) 2 % (1-7); LYMPHOCYTES # (AUTO) 1.72 x10^3/uL (1-3.4); LYMPHOCYTES % (AUTO) 25 % (22-44); MONOCYTES # (AUTO) 0.77 x10^3/uL (0.2-0.8); MONOCYTES % (AUTO) 11 % (2-9); NEUTROPHILS % (AUTO) 62 % (42-75)
[2018-03-25 05:25] LABS: MD SCAN
[2018-03-25] MEDS: INSULIN LISPRO 100 UNITS/ML, PEN SQ-INSULIN SCH ×3 (07:00→16:00)
[2018-03-25 08:48] VITALS: BP 120/68
[2018-03-25] MEDS: PROPRANOLOL 10 MG TABLET PO SCH (09:13)
[2018-03-25] MEDS: FOLIC ACID 1 MG TABLET PO SCH (09:13)
[2018-03-25] MEDS: RIFAXIMIN 550 MG TABLET PO SCH (09:13)
[2018-03-25] MEDS: FLUDROCORTISONE 0.1 MG TABLET PO SCH (09:13)
[2018-03-25] MEDS: PANTOPRAZOLE 40 MG IV IVPush SCH (09:13)
[2018-03-25] MEDS: MIDODRINE 5 MG TABLET PO SCH (09:14)
[2018-03-25] MEDS: LACTULOSE 10 GM/15 ML UDC PO SCH (09:18)
[2018-03-25] MEDS ORDERED: LACT10SO28 PO (11:22)
[2018-03-25] MEDS ORDERED: PROP10TA PO (11:22)
[2018-03-25] MEDS ORDERED: OMEP-110 PO (11:22)
[2018-03-25] MEDS ORDERED: RIFA550T4 PO (11:22)
[2018-03-25] MEDS ORDERED: ALBUMIN HUMAN 25% 100 ML IV PRN (14:00)
[2018-03-25] MEDS ORDERED: ALBUMIN HUMAN 25% 50 ML IV PRN (14:00)
== END 2018-03-25 17:39 | disposition home or self-care (01) | DRG 344 ==
LOC: ED 08:54 → EDIP 09:47 → SUATTDRO 09:56 → 4WST 10:42
PROVIDERS: ADMIT Internal Medicine; ATTEND Internal Medicine
PROC: 30233N1 Transfusion of Nonautologous Red Blood Cells into Peripheral Vein, Percutaneous Approach (ICD-10-PCS; principal; 2018-03-21)
PROC: 5A1D70Z Performance of Urinary Filtration, Intermittent, Less than 6 Hours Per Day (ICD-10-PCS; 2018-03-21)
PROC: 0D5A8ZZ Destruction of Jejunum, Via Natural or Artificial Opening Endoscopic (ICD-10-PCS; 2018-03-23)
PROC: 30233R1 Transfusion of Nonautologous Platelets into Peripheral Vein, Percutaneous Approach (ICD-10-PCS; 2018-03-23)
PROC: 0D558ZZ Destruction of Esophagus, Via Natural or Artificial Opening Endoscopic (ICD-10-PCS; 2018-03-23)
PROC: 5A1D70Z Performance of Urinary Filtration, Intermittent, Less than 6 Hours Per Day (ICD-10-PCS; 2018-03-23)
PROC: 5A1D70Z Performance of Urinary Filtration, Intermittent, Less than 6 Hours Per Day (ICD-10-PCS; 2018-03-25)
DX: K92.0 Hematemesis (principal); N18.6 End stage renal disease; K72.00 Acute and subacute hepatic failure without coma; N17.0 Acute kidney failure with tubular necrosis; D61.818 Other pancytopenia; E46 Unspecified protein-calorie malnutrition; D62 Acute posthemorrhagic anemia; I12.0 Hypertensive chronic kidney disease with stage 5 chronic kidney disease or end stage renal disease; Q27.30 Arteriovenous malformation, site unspecified; K55.20 Angiodysplasia of colon without hemorrhage; I85.00 Esophageal varices without bleeding; D63.1 Anemia in chronic kidney disease; E11.22 Type 2 diabetes mellitus with diabetic chronic kidney disease; N25.0 Renal osteodystrophy; E66.01 Morbid (severe) obesity due to excess calories; R53.81 Other malaise; K76.0 Fatty (change of) liver, not elsewhere classified; K74.60 Unspecified cirrhosis of liver; Z99.2 Dependence on renal dialysis; Z87.11 Personal history of peptic ulcer disease; Z88.1 Allergy status to other antibiotic agents; Z90.49 Acquired absence of other specified parts of digestive tract; Z87.01 Personal history of pneumonia (recurrent)
CPT/HCPCS: 36415; 80053; 82140; 82962; 83036; 83735; 84100; 85014; 85018; 85025; 85049; 85610; 85730; 86850; 86900; 86923; 93005; 99285; J2704; P9047; C9113; J1815; J7030; P9016; P9035

== ENCOUNTER 2018-04-06 14:17 | Inpatient (IN) | payer MEDICAID ==
[~2018-04-06] VITALS: Ht 175.3 cm; Wt 160.2 kg
[~2018-04-06 14:17] MED LIST changes: +OMEP-110 PO; +PROP10TA PO
[2018-04-06 15:36] LABS: ALANINE AMINOTRANSFERASE 16 U/L (12-78); ANION GAP 11 mmol/L (5-15); CALCIUM 7.7 mg/dL (8.5-10.1); CHLORIDE 106 mmol/L (98-107)
[2018-04-06 15:40] LABS: ALKALINE PHOSPHATASE 86 U/L (45-117); BILIRUBIN,TOTAL 1.5 mg/dL (0.2-1.0); TOTAL PROTEIN 4.7 g/dL (6.4-8.2)
[2018-04-06 15:42] LABS: BASOPHILS # (AUTO) 0.12 x10^3/uL (0-0.1); BASOPHILS % (AUTO) 2 % (0-1); EOSINOPHILS # (AUTO) 0.14 x10^3/uL (0-0.4); EOSINOPHILS % (AUTO) 2 % (1-7); LYMPHOCYTES # (AUTO) 1.86 x10^3/uL (1-3.4); LYMPHOCYTES % (AUTO) 28 % (22-44); MD MORPH REVIEW ONLY; MEAN CORPUSCULAR HEMOGLOBIN 35.1 pg (27.5-34.5); MEAN CORPUSCULAR HGB CONC 33.3 g/dL (33.2-36.2); MEAN CORPUSCULAR VOLUME 105.6 fL (81-97); MEAN PLATELET VOLUME 9.3 fL (7.4-10.4); MONOCYTES # (AUTO) 0.49 x10^3/uL (0.2-0.8); MONOCYTES % (AUTO) 7 % (2-9); NEUTROPHILS # (AUTO) 4.03 x10^3/uL (1.8-6.8); NEUTROPHILS % (AUTO) 61 % (42-75); PLATELET COUNT 57 x10^3/uL (130-400); RED BLOOD COUNT 1.94 x10^6/uL (4.38-5.82); RED CELL DISTRIBUTION WIDTH 21.6 % (9.4-14.8)
[2018-04-06 15:45] LABS: <PLATELET ESTIMATE> DECREASED; <PLT MORPHOLOGY> NORMAL PLT MORPH; ANISOCYTOSIS 1+; HYPOCHROMIA 1+; POLYCHROMASIA 1+; TROPONIN I 0.025 ng/mL (0.000-0.045)
[2018-04-06 20:00] VITALS: BP 85/50
[2018-04-06] MEDS ORDERED: SODIUM CHLORIDE 0.9% 1,000 ML IV SCH (20:48)
[2018-04-06] MEDS ORDERED: ACETAMINOPHEN 325 MG TABLET PO PRN (21:00)
[2018-04-06] MEDS ORDERED: POLYETHYLENE GLYCOL 17 GM PACKET PO PRN (21:00)
[2018-04-06] MEDS ORDERED: ONDANSETRON ODT 8 MG PO PRN (21:00)
[2018-04-06] MEDS ORDERED: ONDANSETRON ODT 4 MG PO PRN (21:00)
[2018-04-06] MEDS: INSULIN GLARGINE 100 UNITS/ML, PEN SQ-INSULIN SCH (21:00)
[2018-04-06] MEDS ORDERED: ONDANSETRON 2MG/ML, 2ML IVPush PRN (21:00)
[2018-04-06] MEDS: RIFAXIMIN 550 MG TABLET PO SCH (21:59)
[2018-04-06] MEDS: MIDODRINE 5 MG TABLET PO SCH (21:59)
[2018-04-06] MEDS: LACTULOSE 10 GM/15 ML UDC PO SCH (22:08)
[2018-04-06 22:23] VITALS: BP 95/34
[2018-04-06 22:29] VITALS: BP 97/46
[2018-04-06 22:45] VITALS: BP 97/39
[2018-04-06 23:36] VITALS: BP 103/45
[2018-04-07] VITALS (14 sets, daily range): BP systolic 90–143; BP diastolic 40–64
[2018-04-07 06:25] LABS: MEAN CORPUSCULAR HGB CONC 34.2 g/dL (33.2-36.2); MEAN CORPUSCULAR VOLUME 102.4 fL (81-97); RED BLOOD COUNT 2.16 x10^6/uL (4.38-5.82); RED CELL DISTRIBUTION WIDTH 21.6 % (9.4-14.8)
[2018-04-07 06:26] LABS: ANION GAP 11 mmol/L (5-15); CALCIUM 7.9 mg/dL (8.5-10.1); CHLORIDE 109 mmol/L (98-107)
[2018-04-07 06:39] LABS: BASOPHILS # (AUTO) 0.04 x10^3/uL (0-0.1); BASOPHILS % (AUTO) 1 % (0-1); EOSINOPHILS # (AUTO) 0.11 x10^3/uL (0-0.4); EOSINOPHILS % (AUTO) 2 % (1-7); LYMPHOCYTES % (AUTO) 35 % (22-44); MD SCAN; MEAN PLATELET VOLUME 8.9 fL (7.4-10.4); MONOCYTES # (AUTO) 0.34 x10^3/uL (0.2-0.8); MONOCYTES % (AUTO) 7 % (2-9); NEUTROPHILS # (AUTO) 2.74 x10^3/uL (1.8-6.8); NEUTROPHILS % (AUTO) 56 % (42-75)
[2018-04-07 06:58] LABS: PLATELET COUNT 42 x10^3/uL (130-400)
[2018-04-07] MEDS: PROPRANOLOL 10 MG TABLET PO SCH (07:57)
[2018-04-07] MEDS: RIFAXIMIN 550 MG TABLET PO SCH ×2 (07:57→21:46)
[2018-04-07] MEDS: FOLIC ACID 1 MG TABLET PO SCH (07:57)
[2018-04-07] MEDS: FLUDROCORTISONE 0.1 MG TABLET PO SCH (07:57)
[2018-04-07] MEDS: LACTULOSE 10 GM/15 ML UDC PO SCH ×3 (07:58→21:00)
[2018-04-07] MEDS: MIDODRINE 5 MG TABLET PO SCH ×3 (07:58→21:46)
[2018-04-07] MEDS: LANTHANUM CARBONATE 1000 MG HOMEMEDPO SCH ×3 (08:00→16:16)
[2018-04-07] MEDS ORDERED: DARBEPOETIN 100 MCG/ML SQ SCH (10:00)
[2018-04-07 18:16] LABS: INTERNATIONAL NORMALIZED RATIO 1.42 (0.93-1.1); PROTHROMBIN TIME 14.5 Seconds (9.6-11.5)
[2018-04-07] MEDS: INSULIN GLARGINE 100 UNITS/ML, PEN SQ-INSULIN SCH (21:46)
[2018-04-08 02:52] VITALS: BP 87/54
[2018-04-08 03:02] VITALS: BP 103/61
[2018-04-08 04:26] LABS: CLOSTRIDIUM DIFFICILE ANTIGEN NEGATIVE; CLOSTRIDIUM DIFFICILE TOXIN NEGATIVE (Negative)
[2018-04-08 05:52] LABS: CHLORIDE 105 mmol/L (98-107)
[2018-04-08 06:05] LABS: MEAN CORPUSCULAR HEMOGLOBIN 34.6 pg (27.5-34.5); MEAN CORPUSCULAR HGB CONC 34.1 g/dL (33.2-36.2); MEAN CORPUSCULAR VOLUME 101.4 fL (81-97); MEAN PLATELET VOLUME 8.9 fL (7.4-10.4); RED CELL DISTRIBUTION WIDTH 21.5 % (9.4-14.8)
[2018-04-08 06:06] LABS: % IRON SATURATION 74 % (20-55); ALANINE AMINOTRANSFERASE 13 U/L (12-78); ALBUMIN 1.9 g/dL (3.4-5.0); ALKALINE PHOSPHATASE 69 U/L (45-117); ANION GAP 11 mmol/L (5-15); BILIRUBIN,TOTAL 2.9 mg/dL (0.2-1.0); CALCIUM 7.6 mg/dL (8.5-10.1); CREATININE 8.05 mg/dL (0.7-1.3); IRON LEVEL 148 mcg/dL (65-175); PLATELET COUNT 35 x10^3/uL (130-400); TOTAL IRON BINDING CAPACITY 200 mcg/dL (250-450); TOTAL PROTEIN 4.5 g/dL (6.4-8.2)
[2018-04-08 06:21] LABS: BASOPHILS # (AUTO) 0.04 x10^3/uL (0-0.1); BASOPHILS % (AUTO) 1 % (0-1); EOSINOPHILS # (AUTO) 0.08 x10^3/uL (0-0.4); EOSINOPHILS % (AUTO) 2 % (1-7); LYMPHOCYTES % (AUTO) 34 % (22-44); MD SCAN; MONOCYTES # (AUTO) 0.38 x10^3/uL (0.2-0.8); MONOCYTES % (AUTO) 7 % (2-9); NEUTROPHILS # (AUTO) 2.94 x10^3/uL (1.8-6.8); NEUTROPHILS % (AUTO) 56 % (42-75)
[2018-04-08 06:43] VITALS: BP 95/61
[2018-04-08] MEDS: LANTHANUM CARBONATE 1000 MG HOMEMEDPO SCH ×3 (08:00→16:13)
[2018-04-08] MEDS: LACTULOSE 10 GM/15 ML UDC PO SCH ×3 (08:50→21:03)
[2018-04-08] MEDS: FOLIC ACID 1 MG TABLET PO SCH (09:00)
[2018-04-08] MEDS: PROPRANOLOL 10 MG TABLET PO SCH (09:00)
[2018-04-08] MEDS: RIFAXIMIN 550 MG TABLET PO SCH ×2 (09:10→21:03)
[2018-04-08] MEDS: FLUDROCORTISONE 0.1 MG TABLET PO SCH (09:11)
[2018-04-08] MEDS: MIDODRINE 5 MG TABLET PO SCH ×3 (09:11→21:03)
[2018-04-08 12:12] VITALS: BP 92/41
[2018-04-08 20:00] VITALS: BP 112/66
[2018-04-08] MEDS: INSULIN GLARGINE 100 UNITS/ML, PEN SQ-INSULIN SCH (21:00)
[2018-04-09 02:00] VITALS: BP 92/50
[2018-04-09 06:47] VITALS: BP 95/59
[2018-04-09] MEDS: LANTHANUM CARBONATE 1000 MG HOMEMEDPO SCH ×3 (08:00→16:05)
[2018-04-09 08:25] LABS: ANION GAP 7 mmol/L (5-15); CALCIUM 7.9 mg/dL (8.5-10.1); CHLORIDE 105 mmol/L (98-107); CREATININE 6.85 mg/dL (0.7-1.3)
[2018-04-09 08:38] LABS: MEAN CORPUSCULAR HEMOGLOBIN 35.1 pg (27.5-34.5); MEAN CORPUSCULAR HGB CONC 34.5 g/dL (33.2-36.2); MEAN CORPUSCULAR VOLUME 101.6 fL (81-97); MEAN PLATELET VOLUME 8.8 fL (7.4-10.4); RED BLOOD COUNT 2.32 x10^6/uL (4.38-5.82); RED CELL DISTRIBUTION WIDTH 21.2 % (9.4-14.8)
[2018-04-09 08:39] LABS: PLATELET COUNT 33 x10^3/uL (130-400)
[2018-04-09 08:42] LABS: BASOPHILS # (AUTO) 0.06 x10^3/uL (0-0.1); BASOPHILS % (AUTO) 2 % (0-1); EOSINOPHILS # (AUTO) 0.09 x10^3/uL (0-0.4); EOSINOPHILS % (AUTO) 2 % (1-7); LYMPHOCYTES # (AUTO) 1.68 x10^3/uL (1-3.4); LYMPHOCYTES % (AUTO) 39 % (22-44); MD SCAN; MONOCYTES # (AUTO) 0.31 x10^3/uL (0.2-0.8); MONOCYTES % (AUTO) 7 % (2-9); NEUTROPHILS # (AUTO) 2.19 x10^3/uL (1.8-6.8); NEUTROPHILS % (AUTO) 51 % (42-75)
[2018-04-09] MEDS: FLUDROCORTISONE 0.1 MG TABLET PO SCH (08:56)
[2018-04-09] MEDS: MIDODRINE 5 MG TABLET PO SCH ×3 (08:56→20:38)
[2018-04-09] MEDS: PROPRANOLOL 10 MG TABLET PO SCH (08:56)
[2018-04-09] MEDS: FOLIC ACID 1 MG TABLET PO SCH (08:56)
[2018-04-09] MEDS: RIFAXIMIN 550 MG TABLET PO SCH ×2 (08:56→20:35)
[2018-04-09] MEDS: LACTULOSE 10 GM/15 ML UDC PO SCH ×3 (08:57→20:38)
[2018-04-09 13:54] VITALS: BP 108/53
[2018-04-09 18:58] VITALS: BP_SYST 88; BP_SYST 90; BP_DIAS 33
[2018-04-09] MEDS: INSULIN GLARGINE 100 UNITS/ML, PEN SQ-INSULIN SCH (20:39)
[2018-04-09] MEDS: RUTIN 500 MG PO SCH (20:39)
[2018-04-10] VITALS (9 sets, daily range): BP systolic 74–101; BP diastolic 27–54
[2018-04-10 06:16] LABS: ANION GAP 10 mmol/L (5-15); CALCIUM 7.9 mg/dL (8.5-10.1); CHLORIDE 104 mmol/L (98-107)
[2018-04-10 06:17] LABS: CREATININE 8.37 mg/dL (0.7-1.3)
[2018-04-10 06:21] LABS: MEAN CORPUSCULAR HEMOGLOBIN 34.8 pg (27.5-34.5); MEAN CORPUSCULAR HGB CONC 34.1 g/dL (33.2-36.2); MEAN CORPUSCULAR VOLUME 101.9 fL (81-97); RED BLOOD COUNT 2.21 x10^6/uL (4.38-5.82)
[2018-04-10 06:44] LABS: BASOPHILS # (AUTO) 0.03 x10^3/uL (0-0.1); BASOPHILS % (AUTO) 1 % (0-1); EOSINOPHILS % (AUTO) 3 % (1-7); LYMPHOCYTES # (AUTO) 1.55 x10^3/uL (1-3.4); LYMPHOCYTES % (AUTO) 41 % (22-44); MD SCAN; MEAN PLATELET VOLUME 8.7 fL (7.4-10.4); MONOCYTES # (AUTO) 0.31 x10^3/uL (0.2-0.8); MONOCYTES % (AUTO) 8 % (2-9); NEUTROPHILS # (AUTO) 1.82 x10^3/uL (1.8-6.8); NEUTROPHILS % (AUTO) 48 % (42-75)
[2018-04-10 06:48] LABS: PLATELET COUNT 32 x10^3/uL (130-400)
[2018-04-10] MEDS: LANTHANUM CARBONATE 1000 MG HOMEMEDPO SCH ×3 (08:00→16:47)
[2018-04-10] MEDS: LACTULOSE 10 GM/15 ML UDC PO SCH ×2 (08:18→16:00)
[2018-04-10] MEDS: FLUDROCORTISONE 0.1 MG TABLET PO SCH (08:18)
[2018-04-10] MEDS: RIFAXIMIN 550 MG TABLET PO SCH (08:18)
[2018-04-10] MEDS: PROPRANOLOL 10 MG TABLET PO SCH (08:18)
[2018-04-10] MEDS: FOLIC ACID 1 MG TABLET PO SCH (08:19)
[2018-04-10] MEDS: MIDODRINE 5 MG TABLET PO SCH ×2 (08:19→16:00)
[2018-04-10] MEDS: RUTIN 500 MG PO SCH (08:19)
[2018-04-10] MEDS ORDERED: POTASSIUM CHLORIDE 20 MEQ TAB.ER.PRT PO ONE (12:00)
== END 2018-04-10 19:30 | disposition home health service (06) | DRG 377 ==
LOC: ED 16:22 → EDIP 16:23 → ED 16:36 → SUATTDRO 17:00 → 4WST 17:46
PROVIDERS: ADMIT Internal Medicine; ATTEND Hospitalist
PROC: 30233N1 Transfusion of Nonautologous Red Blood Cells into Peripheral Vein, Percutaneous Approach (ICD-10-PCS; principal; 2018-04-06)
PROC: 5A1D70Z Performance of Urinary Filtration, Intermittent, Less than 6 Hours Per Day (ICD-10-PCS; 2018-04-07)
PROC: 5A1D70Z Performance of Urinary Filtration, Intermittent, Less than 6 Hours Per Day (ICD-10-PCS; 2018-04-08)
PROC: 5A1D70Z Performance of Urinary Filtration, Intermittent, Less than 6 Hours Per Day (ICD-10-PCS; 2018-04-10)
DX: K55.21 Angiodysplasia of colon with hemorrhage (principal); E43 Unspecified severe protein-calorie malnutrition; N17.0 Acute kidney failure with tubular necrosis; N18.6 End stage renal disease; D62 Acute posthemorrhagic anemia; D61.818 Other pancytopenia; N25.81 Secondary hyperparathyroidism of renal origin; E27.40 Unspecified adrenocortical insufficiency; I12.0 Hypertensive chronic kidney disease with stage 5 chronic kidney disease or end stage renal disease; K76.6 Portal hypertension; Z68.43 Body mass index [BMI] 50.0-59.9, adult; K31.82 Dieulafoy lesion (hemorrhagic) of stomach and duodenum; E11.22 Type 2 diabetes mellitus with diabetic chronic kidney disease; D63.1 Anemia in chronic kidney disease; E66.01 Morbid (severe) obesity due to excess calories; Z87.11 Personal history of peptic ulcer disease; K31.89 Other diseases of stomach and duodenum; K74.60 Unspecified cirrhosis of liver; K76.0 Fatty (change of) liver, not elsewhere classified; N25.0 Renal osteodystrophy; S80.211A Abrasion, right knee, initial encounter; W01.0XXA Fall on same level from slipping, tripping and stumbling without subsequent striking against object, initial encounter; Y93.01 Activity, walking, marching and hiking; Y92.89 Other specified places as the place of occurrence of the external cause; Y99.8 Other external cause status; Z79.4 Long term (current) use of insulin; Z99.2 Dependence on renal dialysis; Z88.1 Allergy status to other antibiotic agents
CPT/HCPCS: 36415; 71045; 78278; 80048; 80053; 80069; 82040; 82140; 82306; 82728; 82962; 83540; 83550; 83690; 83735; 83880; 83970; 84100; 84484; 84550; 85025; 85610; 85730; 86850; 86900; 86923; 87324; 93005; 99285; J0881; A9560; C9898; J1815; J7030; P9016

== ENCOUNTER 2018-04-11 00:33 | Inpatient (IN) | payer MEDICAID ==
[2018-04-11] VITALS (18 sets, daily range): BP systolic 91–122; BP diastolic 41–73
[~2018-04-11] VITALS: Ht 175.3 cm; Wt 150.3 kg
[2018-04-11 01:13] LABS: INTERNATIONAL NORMALIZED RATIO 1.51 (0.93-1.1); PROTHROMBIN TIME 15.4 Seconds (9.6-11.5)
[2018-04-11 01:28] LABS: ANION GAP 11 mmol/L (5-15); CALCIUM 7.7 mg/dL (8.5-10.1); CHLORIDE 105 mmol/L (98-107); CREATININE 5.99 mg/dL (0.7-1.3)
[2018-04-11] MEDS ORDERED: MORPHINE SULFATE 4 MG/ML, 1ML ONE (01:41)
[2018-04-11] MEDS ORDERED: morphine SULFATE 10 MG/ML, 1ML IVPush ONE (02:00)
[2018-04-11 02:20] LABS: MEAN CORPUSCULAR HEMOGLOBIN 34.6 pg (27.5-34.5); MEAN CORPUSCULAR HGB CONC 34.6 g/dL (33.2-36.2); MEAN CORPUSCULAR VOLUME 100.1 fL (81-97); MEAN PLATELET VOLUME 9.4 fL (7.4-10.4); RED BLOOD COUNT 2.26 x10^6/uL (4.38-5.82)
[2018-04-11 02:27] LABS: PLATELET COUNT 45 x10^3/uL (130-400)
[2018-04-11] MEDS ORDERED: ONDANSETRON ODT 8 MG PO PRN (02:30)
[2018-04-11 02:33] LABS: BASOPHILS # (AUTO) 0.02 x10^3/uL (0-0.1); BASOPHILS % (AUTO) 0 % (0-1); EOSINOPHILS # (AUTO) 0.02 x10^3/uL (0-0.4); EOSINOPHILS % (AUTO) 0 % (1-7); LYMPHOCYTES # (AUTO) 1.66 x10^3/uL (1-3.4); LYMPHOCYTES % (AUTO) 22 % (22-44); MD SCAN; MONOCYTES # (AUTO) 0.58 x10^3/uL (0.2-0.8); MONOCYTES % (AUTO) 8 % (2-9); NEUTROPHILS # (AUTO) 5.34 x10^3/uL (1.8-6.8); NEUTROPHILS % (AUTO) 70 % (42-75)
[2018-04-11 06:13] LABS: MEAN CORPUSCULAR HEMOGLOBIN 35.1 pg (27.5-34.5); MEAN CORPUSCULAR HGB CONC 34.4 g/dL (33.2-36.2); RED BLOOD COUNT 2.06 x10^6/uL (4.38-5.82); RED CELL DISTRIBUTION WIDTH 20.8 % (9.4-14.8)
[2018-04-11] MEDS: INSULIN LISPRO 100 UNITS/ML, PEN SQ-INSULIN SCH ×4 (07:00→21:43)
[2018-04-11 07:01] LABS: BASOPHILS # (AUTO) 0.03 x10^3/uL (0-0.1); BASOPHILS % (AUTO) 1 % (0-1); EOSINOPHILS # (AUTO) 0.07 x10^3/uL (0-0.4); EOSINOPHILS % (AUTO) 1 % (1-7); LYMPHOCYTES # (AUTO) 1.81 x10^3/uL (1-3.4); LYMPHOCYTES % (AUTO) 25 % (22-44); MD MORPH REVIEW ONLY; MEAN PLATELET VOLUME 9.1 fL (7.4-10.4); MONOCYTES # (AUTO) 0.52 x10^3/uL (0.2-0.8); MONOCYTES % (AUTO) 7 % (2-9); NEUTROPHILS # (AUTO) 4.69 x10^3/uL (1.8-6.8); NEUTROPHILS % (AUTO) 66 % (42-75)
[2018-04-11 07:12] LABS: PLATELET COUNT 38 x10^3/uL (130-400)
[2018-04-11 07:13] LABS: ANISOCYTOSIS 1+
[2018-04-11 07:14] LABS: <PLATELET ESTIMATE> DECREASED; <PLT MORPHOLOGY> NORMAL PLT MORPH; POLYCHROMASIA 1+
[2018-04-11 07:55] LABS: ALBUMIN 1.8 g/dL (3.4-5.0); ANION GAP 5 mmol/L (5-15); CALCIUM 7.7 mg/dL (8.5-10.1); CHLORIDE 107 mmol/L (98-107)
[2018-04-11] MEDS ORDERED: PHYTONADIONE 5 MG TABLET PO ONE (08:00)
[2018-04-11 08:29] LABS: MEAN CORPUSCULAR HEMOGLOBIN 34.4 pg (27.5-34.5); MEAN CORPUSCULAR HGB CONC 34.1 g/dL (33.2-36.2); MEAN CORPUSCULAR VOLUME 100.9 fL (81-97); MEAN PLATELET VOLUME 8.9 fL (7.4-10.4); RED BLOOD COUNT 2.06 x10^6/uL (4.38-5.82); RED CELL DISTRIBUTION WIDTH 20.8 % (9.4-14.8)
[2018-04-11 08:32] LABS: PLATELET COUNT 40 x10^3/uL (130-400)
[2018-04-11 09:29] LABS: BASOPHILS # (AUTO) 0.09 x10^3/uL (0-0.1); BASOPHILS % (AUTO) 1 % (0-1); EOSINOPHILS # (AUTO) 0.01 x10^3/uL (0-0.4); EOSINOPHILS % (AUTO) 0 % (1-7); LYMPHOCYTES # (AUTO) 2.03 x10^3/uL (1-3.4); LYMPHOCYTES % (AUTO) 29 % (22-44); MD SCAN; MONOCYTES # (AUTO) 0.45 x10^3/uL (0.2-0.8); MONOCYTES % (AUTO) 6 % (2-9); NEUTROPHILS # (AUTO) 4.44 x10^3/uL (1.8-6.8); NEUTROPHILS % (AUTO) 63 % (42-75)
[2018-04-11] MEDS: FOLIC ACID 1 MG TABLET PO SCH (11:24)
[2018-04-11] MEDS: LACTULOSE 10 GM/15 ML UDC PO SCH ×3 (11:24→21:42)
[2018-04-11] MEDS: SODIUM CHLORIDE FLUSH 10ML SYR IVF SCH ×2 (11:25→21:00)
[2018-04-11] MEDS: PANTOPROZOLE 40MG TABLET PO SCH ×2 (11:25→17:07)
[2018-04-11] MEDS: MIDODRINE 5 MG TABLET PO SCH ×3 (11:25→21:42)
[2018-04-11] MEDS: FLUDROCORTISONE 0.1 MG TABLET PO SCH (11:25)
[2018-04-11] MEDS: RIFAXIMIN 550 MG TABLET PO SCH ×2 (11:25→21:42)
[2018-04-11] MEDS: INSULIN GLARGINE 100 UNITS/ML, PEN SQ-INSULIN SCH (21:43)
[2018-04-12 02:23] VITALS: BP 88/50
[2018-04-12 06:08] LABS: ALBUMIN 1.9 g/dL (3.4-5.0); ANION GAP 8 mmol/L (5-15); CALCIUM 7.7 mg/dL (8.5-10.1); CHLORIDE 106 mmol/L (98-107)
[2018-04-12 06:09] LABS: MEAN CORPUSCULAR HEMOGLOBIN 33.7 pg (27.5-34.5); MEAN CORPUSCULAR HGB CONC 33.6 g/dL (33.2-36.2); MEAN CORPUSCULAR VOLUME 100.4 fL (81-97); RED BLOOD COUNT 2.31 x10^6/uL (4.38-5.82); RED CELL DISTRIBUTION WIDTH 22.5 % (9.4-14.8)
[2018-04-12 06:14] LABS: % IRON SATURATION 46 % (20-55); ALANINE AMINOTRANSFERASE 13 U/L (12-78); ALKALINE PHOSPHATASE 76 U/L (45-117); BILIRUBIN,TOTAL 1.9 mg/dL (0.2-1.0); IRON LEVEL 79 mcg/dL (65-175); TOTAL IRON BINDING CAPACITY 171 mcg/dL (250-450); TOTAL PROTEIN 4.3 g/dL (6.4-8.2)
[2018-04-12 06:40] LABS: MEAN PLATELET VOLUME 8.9 fL (7.4-10.4)
[2018-04-12 06:42] LABS: BASOPHILS # (AUTO) 0.03 x10^3/uL (0-0.1); BASOPHILS % (AUTO) 1 % (0-1); EOSINOPHILS # (AUTO) 0.12 x10^3/uL (0-0.4); EOSINOPHILS % (AUTO) 2 % (1-7); LYMPHOCYTES # (AUTO) 1.77 x10^3/uL (1-3.4); LYMPHOCYTES % (AUTO) 34 % (22-44); MD SCAN; MONOCYTES # (AUTO) 0.49 x10^3/uL (0.2-0.8); MONOCYTES % (AUTO) 10 % (2-9); NEUTROPHILS # (AUTO) 2.73 x10^3/uL (1.8-6.8); NEUTROPHILS % (AUTO) 53 % (42-75)
[2018-04-12 06:43] LABS: PLATELET COUNT 30 x10^3/uL (130-400)
[2018-04-12 07:53] VITALS: BP 76/31
[2018-04-12] MEDS: INSULIN LISPRO 100 UNITS/ML, PEN SQ-INSULIN SCH ×4 (07:54→21:00)
[2018-04-12 08:07] VITALS: BP 73/40
[2018-04-12] MEDS: SODIUM CHLORIDE FLUSH 10ML SYR IVF SCH ×2 (09:00→21:29)
[2018-04-12] MEDS: FLUDROCORTISONE 0.1 MG TABLET PO SCH (09:01)
[2018-04-12] MEDS: FOLIC ACID 1 MG TABLET PO SCH (09:01)
[2018-04-12] MEDS: PANTOPROZOLE 40MG TABLET PO SCH ×2 (09:01→17:01)
[2018-04-12] MEDS: MIDODRINE 5 MG TABLET PO SCH ×3 (09:02→21:26)
[2018-04-12] MEDS: RIFAXIMIN 550 MG TABLET PO SCH ×2 (09:02→21:26)
[2018-04-12] MEDS: LACTULOSE 10 GM/15 ML UDC PO SCH ×4 (09:07→21:32)
[2018-04-12 12:37] VITALS: BP 88/51
[2018-04-12 20:44] VITALS: BP 125/55
[2018-04-12] MEDS: INSULIN GLARGINE 100 UNITS/ML, PEN SQ-INSULIN SCH (21:30)
[2018-04-13 02:00] VITALS: BP 120/62
[2018-04-13 06:50] VITALS: BP 103/64
[2018-04-13] MEDS: INSULIN LISPRO 100 UNITS/ML, PEN SQ-INSULIN SCH ×4 (07:00→22:23)
[2018-04-13 08:05] LABS: MEAN CORPUSCULAR HEMOGLOBIN 33.7 pg (27.5-34.5); MEAN CORPUSCULAR HGB CONC 33.7 g/dL (33.2-36.2); MEAN PLATELET VOLUME 9.1 fL (7.4-10.4); RED BLOOD COUNT 2.23 x10^6/uL (4.38-5.82); RED CELL DISTRIBUTION WIDTH 23.2 % (9.4-14.8)
[2018-04-13 08:06] LABS: ALBUMIN 1.9 g/dL (3.4-5.0); ANION GAP 11 mmol/L (5-15); CALCIUM 7.6 mg/dL (8.5-10.1); CHLORIDE 104 mmol/L (98-107); CREATININE 9.85 mg/dL (0.7-1.3); INTERNATIONAL NORMALIZED RATIO 1.49 (0.93-1.1); PROTHROMBIN TIME 15.2 Seconds (9.6-11.5)
[2018-04-13 08:07] LABS: PLATELET COUNT 37 x10^3/uL (130-400)
[2018-04-13 08:14] LABS: ALANINE AMINOTRANSFERASE 11 U/L (12-78); ALKALINE PHOSPHATASE 69 U/L (45-117); BILIRUBIN,TOTAL 2.2 mg/dL (0.2-1.0); TOTAL PROTEIN 4.4 g/dL (6.4-8.2)
[2018-04-13 08:22] LABS: BASOPHILS # (AUTO) 0.02 x10^3/uL (0-0.1); BASOPHILS % (AUTO) 0 % (0-1); EOSINOPHILS # (AUTO) 0.13 x10^3/uL (0-0.4); EOSINOPHILS % (AUTO) 3 % (1-7); LYMPHOCYTES # (AUTO) 1.57 x10^3/uL (1-3.4); LYMPHOCYTES % (AUTO) 30 % (22-44); MD SCAN; MONOCYTES # (AUTO) 0.39 x10^3/uL (0.2-0.8); MONOCYTES % (AUTO) 8 % (2-9); NEUTROPHILS # (AUTO) 3.11 x10^3/uL (1.8-6.8); NEUTROPHILS % (AUTO) 60 % (42-75)
[2018-04-13] MEDS: PANTOPROZOLE 40MG TABLET PO SCH ×2 (09:09→16:14)
[2018-04-13] MEDS: SODIUM CHLORIDE FLUSH 10ML SYR IVF SCH ×2 (09:09→22:17)
[2018-04-13] MEDS: FOLIC ACID 1 MG TABLET PO SCH (09:10)
[2018-04-13] MEDS: LACTULOSE 10 GM/15 ML UDC PO SCH ×3 (09:10→21:00)
[2018-04-13] MEDS: FLUDROCORTISONE 0.1 MG TABLET PO SCH (09:10)
[2018-04-13] MEDS: MIDODRINE 5 MG TABLET PO SCH ×3 (09:10→22:17)
[2018-04-13] MEDS: RIFAXIMIN 550 MG TABLET PO SCH ×2 (09:11→22:18)
[2018-04-13 12:35] VITALS: BP 118/70
[2018-04-13] MEDS ORDERED: MICROFIBRILLAR COLLAGEN 1 GM TP ONE (14:00)
[2018-04-13] MEDS ORDERED: MICROFIBRILLAR COLLAGEN 1 GM TP PRN (15:00)
[2018-04-13 20:37] VITALS: BP 125/66
[2018-04-13] MEDS: INSULIN GLARGINE 100 UNITS/ML, PEN SQ-INSULIN SCH (22:23)
[2018-04-14] VITALS (16 sets, daily range): BP systolic 82–127; BP diastolic 32–68
[2018-04-14] MEDS: INSULIN LISPRO 100 UNITS/ML, PEN SQ-INSULIN SCH ×4 (07:00→20:55)
[2018-04-14] MEDS: PANTOPROZOLE 40MG TABLET PO SCH ×2 (07:57→16:32)
[2018-04-14 08:17] LABS: MEAN CORPUSCULAR HEMOGLOBIN 34.5 pg (27.5-34.5); MEAN CORPUSCULAR HGB CONC 34.5 g/dL (33.2-36.2); MEAN PLATELET VOLUME 8.8 fL (7.4-10.4); RED BLOOD COUNT 1.98 x10^6/uL (4.38-5.82); RED CELL DISTRIBUTION WIDTH 24.3 % (9.4-14.8)
[2018-04-14 08:18] LABS: PLATELET COUNT 39 x10^3/uL (130-400)
[2018-04-14 08:19] LABS: ANION GAP 9 mmol/L (5-15); CALCIUM 7.5 mg/dL (8.5-10.1); CHLORIDE 103 mmol/L (98-107); CREATININE 7.65 mg/dL (0.7-1.3)
[2018-04-14 08:19] LABS: INTERNATIONAL NORMALIZED RATIO 1.52 (0.93-1.1); PROTHROMBIN TIME 15.5 Seconds (9.6-11.5)
[2018-04-14] MEDS ORDERED: PHYTONADIONE 5 MG TABLET PO ONE (08:30)
[2018-04-14 08:43] LABS: MD YES
[2018-04-14] MEDS: MIDODRINE 5 MG TABLET PO SCH ×3 (09:00→20:49)
[2018-04-14] MEDS: SODIUM CHLORIDE FLUSH 10ML SYR IVF SCH ×2 (09:00→20:55)
[2018-04-14] MEDS: FOLIC ACID 1 MG TABLET PO SCH (09:00)
[2018-04-14] MEDS: LACTULOSE 10 GM/15 ML UDC PO SCH ×3 (09:00→20:48)
[2018-04-14] MEDS: RIFAXIMIN 550 MG TABLET PO SCH ×2 (09:00→20:48)
[2018-04-14] MEDS: FLUDROCORTISONE 0.1 MG TABLET PO SCH (09:00)
[2018-04-14 10:20] LABS: <PLATELET ESTIMATE> DECREASED; <PLT MORPHOLOGY> NORMAL PLT MORPH; ANISOCYTOSIS 1+; BASOS#(MANUAL) 0.14 x10^3/uL (0-0.1); BASOS% (MANUAL) 2 % (0-1); LYMPH#(MANUAL) 1.28 x10^3/uL (1-3.4); LYMPHS% (MANUAL) 18 % (22-44); POLYCHROMASIA 1+; SCHISTOCYTES 1+; SEG#(MANUAL) 5.68 x10^3/uL (1.8-6.8); SEGS% (MANUAL) 80 % (42-75)
[2018-04-14] MEDS ORDERED: BACITRACIN 50,000 UNIT ONE (13:12)
[2018-04-14] MEDS ORDERED: NEOMY/POLYMYXIN B GU IRR. 1 ML IRRIG ONE (13:13)
[2018-04-14] MEDS ORDERED: BACITRACIN OINT 500U/GM, 15 GM ONE (13:16)
[2018-04-14] MEDS ORDERED: MIDAZOLAM 1 MG/ML, 2ML ONE (13:35)
[2018-04-14] MEDS ORDERED: FENTANYL PF 250 MCG/5ML ONE (13:37)
[2018-04-14] MEDS ORDERED: EPINEPHRINE 1 MG/ML, 1ML ONE (14:18)
[2018-04-14] MEDS ORDERED: CEFAZOLIN 1,000 MG ONE (14:18)
[2018-04-14] MEDS ORDERED: PROPOFOL 10 MG/ML, 20ML ONE (14:18)
[2018-04-14] MEDS ORDERED: PHENYLEPHRINE 10 MG/ML ONE (14:18)
[2018-04-14] MEDS ORDERED: PROMETHAZINE 25 MG/ML, 1ML IV PRN (14:30)
[2018-04-14] MEDS ORDERED: ONDANSETRON 2MG/ML, 2ML IV PRN (14:30)
[2018-04-14] MEDS ORDERED: ACETAMINOPHEN 325 MG TABLET PO PRN (14:30)
[2018-04-14] MEDS ORDERED: MORPHINE SULFATE 4 MG/ML, 1ML IVPush PRN (14:30)
[2018-04-14] MEDS ORDERED: ONDANSETRON ODT 8 MG PO PRN (14:30)
[2018-04-14] MEDS ORDERED: OXYcodone 5 MG/5 ML ORAL.SOL UDC PO PRN (14:30)
[2018-04-14] MEDS ORDERED: FENTANYL PF 100 MCG/2ML ONE (15:09)
[2018-04-14] MEDS ORDERED: OXYcodone 5 MG/5 ML ORAL.SOL UDC ONE (15:09)
[2018-04-14] MEDS: FENTANYL PF 100 MCG/2ML IV PRN ×2 (15:10→15:20)
[2018-04-14] MEDS ORDERED: MORPHINE SULFATE 4 MG/ML, 1ML ONE (15:31)
[2018-04-14 19:54] LABS: MD YES; MEAN CORPUSCULAR HEMOGLOBIN 34.6 pg (27.5-34.5); MEAN CORPUSCULAR HGB CONC 34.5 g/dL (33.2-36.2); MEAN CORPUSCULAR VOLUME 100.2 fL (81-97); MEAN PLATELET VOLUME 8.8 fL (7.4-10.4); PLATELET COUNT 72 x10^3/uL (130-400)
[2018-04-14 20:19] LABS: EOS#(MANUAL) 0.16 x10^3/uL (0.0-0.4); EOS% (MANUAL) 2 % (1-7); LYMPH#(MANUAL) 1.31 x10^3/uL (1-3.4); LYMPHS% (MANUAL) 16 % (22-44); MONOS#(MANUAL) 0.49 x10^3/uL (0.3-2.7); MONOS% (MANUAL) 6 % (2-9); SEG#(MANUAL) 6.23 x10^3/uL (1.8-6.8); SEGS% (MANUAL) 76 % (42-75)
[2018-04-14 20:21] LABS: OVALOCYTES 1+; POLYCHROMASIA 1+
[2018-04-14 20:22] LABS: <PLATELET ESTIMATE> DECREASED; <PLT MORPHOLOGY> NORMAL PLT MORPH; TEAR DROPS 1+
[2018-04-14 20:35] LABS: RED CELL DISTRIBUTION WIDTH 21.1 % (9.4-14.8)
[2018-04-14] MEDS: INSULIN GLARGINE 100 UNITS/ML, PEN SQ-INSULIN SCH (20:54)
[2018-04-15] VITALS (8 sets, daily range): BP systolic 107–145; BP diastolic 30–71
[2018-04-15 05:49] LABS: ALBUMIN 1.9 g/dL (3.4-5.0); ANION GAP 9 mmol/L (5-15); CALCIUM 7.6 mg/dL (8.5-10.1); CHLORIDE 104 mmol/L (98-107)
[2018-04-15 05:52] LABS: MEAN CORPUSCULAR HEMOGLOBIN 33.1 pg (27.5-34.5); MEAN CORPUSCULAR HGB CONC 33.5 g/dL (33.2-36.2); RED BLOOD COUNT 2.16 x10^6/uL (4.38-5.82); RED CELL DISTRIBUTION WIDTH 22.5 % (9.4-14.8)
[2018-04-15 06:14] LABS: MEAN PLATELET VOLUME 8.6 fL (7.4-10.4); PLATELET COUNT 61 x10^3/uL (130-400)
[2018-04-15 06:19] LABS: BASOPHILS # (AUTO) 0.03 x10^3/uL (0-0.1); BASOPHILS % (AUTO) 0 % (0-1); EOSINOPHILS # (AUTO) 0.13 x10^3/uL (0-0.4); EOSINOPHILS % (AUTO) 2 % (1-7); LYMPHOCYTES # (AUTO) 1.72 x10^3/uL (1-3.4); LYMPHOCYTES % (AUTO) 25 % (22-44); MD SCAN; MONOCYTES # (AUTO) 0.59 x10^3/uL (0.2-0.8); MONOCYTES % (AUTO) 9 % (2-9); NEUTROPHILS # (AUTO) 4.44 x10^3/uL (1.8-6.8); NEUTROPHILS % (AUTO) 64 % (42-75)
[2018-04-15] MEDS: INSULIN LISPRO 100 UNITS/ML, PEN SQ-INSULIN SCH ×4 (07:00→20:30)
[2018-04-15] MEDS: MIDODRINE 5 MG TABLET PO SCH ×3 (07:55→20:29)
[2018-04-15] MEDS: LACTULOSE 10 GM/15 ML UDC PO SCH ×3 (12:31→20:29)
[2018-04-15] MEDS: FOLIC ACID 1 MG TABLET PO SCH (12:31)
[2018-04-15] MEDS: PANTOPROZOLE 40MG TABLET PO SCH ×2 (12:32→17:09)
[2018-04-15] MEDS: FLUDROCORTISONE 0.1 MG TABLET PO SCH (12:32)
[2018-04-15] MEDS: RIFAXIMIN 550 MG TABLET PO SCH ×2 (12:32→20:29)
[2018-04-15] MEDS: SODIUM CHLORIDE FLUSH 10ML SYR IVF SCH ×2 (12:33→20:29)
[2018-04-15] MEDS: INSULIN GLARGINE 100 UNITS/ML, PEN SQ-INSULIN SCH (20:30)
[2018-04-16 01:14] VITALS: BP 102/54
[2018-04-16 06:05] LABS: ALBUMIN 1.8 g/dL (3.4-5.0); ANION GAP 8 mmol/L (5-15); CALCIUM 7.8 mg/dL (8.5-10.1); CHLORIDE 102 mmol/L (98-107)
[2018-04-16 06:13] LABS: MEAN CORPUSCULAR HEMOGLOBIN 34.4 pg (27.5-34.5); MEAN CORPUSCULAR HGB CONC 34.1 g/dL (33.2-36.2); MEAN CORPUSCULAR VOLUME 100.9 fL (81-97); RED BLOOD COUNT 2.29 x10^6/uL (4.38-5.82); RED CELL DISTRIBUTION WIDTH 22.4 % (9.4-14.8)
[2018-04-16 06:30] LABS: MEAN PLATELET VOLUME 8.9 fL (7.4-10.4)
[2018-04-16 06:31] LABS: BASOPHILS # (AUTO) 0.03 x10^3/uL (0-0.1); BASOPHILS % (AUTO) 0 % (0-1); EOSINOPHILS # (AUTO) 0.09 x10^3/uL (0-0.4); EOSINOPHILS % (AUTO) 1 % (1-7); LYMPHOCYTES # (AUTO) 2.04 x10^3/uL (1-3.4); LYMPHOCYTES % (AUTO) 26 % (22-44); MD SCAN; MONOCYTES # (AUTO) 0.73 x10^3/uL (0.2-0.8); MONOCYTES % (AUTO) 9 % (2-9); NEUTROPHILS % (AUTO) 63 % (42-75)
[2018-04-16 06:33] LABS: PLATELET COUNT 47 x10^3/uL (130-400)
[2018-04-16] MEDS: INSULIN LISPRO 100 UNITS/ML, PEN SQ-INSULIN SCH ×4 (07:00→20:30)
[2018-04-16 07:42] VITALS: BP 127/63
[2018-04-16 08:08] LABS: INTERNATIONAL NORMALIZED RATIO 1.38 (0.93-1.1); PROTHROMBIN TIME 14.1 Seconds (9.6-11.5)
[2018-04-16] MEDS: LACTULOSE 10 GM/15 ML UDC PO SCH ×3 (08:10→20:30)
[2018-04-16] MEDS: PHYTONADIONE 10 MG/ML, 1ML SQ SCH (08:11)
[2018-04-16] MEDS: FOLIC ACID 1 MG TABLET PO SCH (08:11)
[2018-04-16] MEDS: MIDODRINE 5 MG TABLET PO SCH ×3 (08:12→20:19)
[2018-04-16] MEDS: PANTOPROZOLE 40MG TABLET PO SCH ×2 (08:13→16:56)
[2018-04-16] MEDS: FLUDROCORTISONE 0.1 MG TABLET PO SCH (08:13)
[2018-04-16] MEDS: RIFAXIMIN 550 MG TABLET PO SCH ×2 (08:13→20:20)
[2018-04-16] MEDS: SODIUM CHLORIDE FLUSH 10ML SYR IVF SCH ×2 (08:15→20:30)
[2018-04-16 13:02] VITALS: BP 96/49
[2018-04-16 13:04] VITALS: BP 100/58
[2018-04-16 20:13] VITALS: BP 146/53
[2018-04-16] MEDS: INSULIN GLARGINE 100 UNITS/ML, PEN SQ-INSULIN SCH (20:19)
[2018-04-17 01:22] VITALS: BP_SYST 111; BP_SYST 133; BP_DIAS 51; BP_DIAS 86
[2018-04-17] MEDS: INSULIN LISPRO 100 UNITS/ML, PEN SQ-INSULIN SCH ×4 (07:00→20:28)
[2018-04-17 07:09] VITALS: BP 92/55
[2018-04-17] MEDS: PANTOPROZOLE 40MG TABLET PO SCH ×2 (08:00→17:12)
[2018-04-17 08:57] LABS: MEAN CORPUSCULAR HEMOGLOBIN 34.1 pg (27.5-34.5); MEAN CORPUSCULAR VOLUME 100.4 fL (81-97); MEAN PLATELET VOLUME 8.4 fL (7.4-10.4); PLATELET COUNT 50 x10^3/uL (130-400); RED BLOOD COUNT 2.25 x10^6/uL (4.38-5.82); RED CELL DISTRIBUTION WIDTH 23.1 % (9.4-14.8)
[2018-04-17] MEDS: FLUDROCORTISONE 0.1 MG TABLET PO SCH (09:00)
[2018-04-17] MEDS: PHYTONADIONE 10 MG/ML, 1ML SQ SCH (09:00)
[2018-04-17] MEDS: SODIUM CHLORIDE FLUSH 10ML SYR IVF SCH ×2 (09:00→20:28)
[2018-04-17] MEDS: MIDODRINE 5 MG TABLET PO SCH ×3 (09:00→20:27)
[2018-04-17] MEDS: FOLIC ACID 1 MG TABLET PO SCH (09:00)
[2018-04-17] MEDS: LACTULOSE 10 GM/15 ML UDC PO SCH ×3 (09:00→20:28)
[2018-04-17 09:54] LABS: MD MORPH REVIEW ONLY
[2018-04-17 09:55] LABS: <PLATELET ESTIMATE> DECREASED; <PLT MORPHOLOGY> NORMAL PLT MORPH; ANISOCYTOSIS 2+; BASOPHILS # (AUTO) 0.08 x10^3/uL (0-0.1); BASOPHILS % (AUTO) 1 % (0-1); EOSINOPHILS % (AUTO) 2 % (1-7); LYMPHOCYTES # (AUTO) 1.75 x10^3/uL (1-3.4); LYMPHOCYTES % (AUTO) 30 % (22-44); MONOCYTES # (AUTO) 0.46 x10^3/uL (0.2-0.8); MONOCYTES % (AUTO) 8 % (2-9); NEUTROPHILS # (AUTO) 3.41 x10^3/uL (1.8-6.8); NEUTROPHILS % (AUTO) 59 % (42-75); OVALOCYTES 1+; POLYCHROMASIA 1+
[2018-04-17] MEDS ORDERED: ARANESP 100 MCG/ML **ESRD SQ SCH (13:00)
[2018-04-17 13:44] VITALS: BP 92/62
[2018-04-17 19:42] VITALS: BP 126/54
[2018-04-17] MEDS: INSULIN GLARGINE 100 UNITS/ML, PEN SQ-INSULIN SCH (20:27)
[2018-04-18 01:50] VITALS: BP 112/55
[2018-04-18] MEDS: INSULIN LISPRO 100 UNITS/ML, PEN SQ-INSULIN SCH ×4 (07:00→21:12)
[2018-04-18 08:00] VITALS: BP 91/57
[2018-04-18] MEDS: FOLIC ACID 1 MG TABLET PO SCH (08:06)
[2018-04-18] MEDS: FLUDROCORTISONE 0.1 MG TABLET PO SCH (08:06)
[2018-04-18] MEDS: MIDODRINE 5 MG TABLET PO SCH ×3 (08:07→21:10)
[2018-04-18] MEDS: SODIUM CHLORIDE FLUSH 10ML SYR IVF SCH ×2 (08:07→21:09)
[2018-04-18] MEDS: PANTOPROZOLE 40MG TABLET PO SCH ×2 (08:07→16:50)
[2018-04-18] MEDS: LACTULOSE 10 GM/15 ML UDC PO SCH ×3 (08:07→21:04)
[2018-04-18] MEDS: PHYTONADIONE 10 MG/ML, 1ML SQ SCH (11:06)
[2018-04-18 14:04] VITALS: BP 106/61
[2018-04-18] MEDS: INSULIN GLARGINE 100 UNITS/ML, PEN SQ-INSULIN SCH (21:04)
[2018-04-18 21:10] VITALS: BP 141/63
[2018-04-19 00:46] VITALS: BP 101/48
[2018-04-19] MEDS: INSULIN LISPRO 100 UNITS/ML, PEN SQ-INSULIN SCH ×4 (07:00→21:00)
[2018-04-19 07:12] VITALS: BP 96/56
[2018-04-19] MEDS: FOSRENOL HOMEMEDPO SCH ×3 (08:00→16:59)
[2018-04-19] MEDS: FLUDROCORTISONE 0.1 MG TABLET PO SCH (08:12)
[2018-04-19] MEDS: LACTULOSE 10 GM/15 ML UDC PO SCH ×3 (08:12→21:36)
[2018-04-19] MEDS: SODIUM CHLORIDE FLUSH 10ML SYR IVF SCH ×2 (08:12→21:37)
[2018-04-19] MEDS: PANTOPROZOLE 40MG TABLET PO SCH ×2 (08:12→16:53)
[2018-04-19] MEDS: FOLIC ACID 1 MG TABLET PO SCH (08:12)
[2018-04-19] MEDS: MIDODRINE 5 MG TABLET PO SCH ×3 (08:12→21:37)
[2018-04-19 12:31] VITALS: BP 76/31
[2018-04-19 20:11] VITALS: BP 96/58
[2018-04-19] MEDS: INSULIN GLARGINE 100 UNITS/ML, PEN SQ-INSULIN SCH (21:37)
[2018-04-20 00:51] VITALS: BP 101/51
[2018-04-20 06:38] VITALS: BP 100/46
[2018-04-20] MEDS: INSULIN LISPRO 100 UNITS/ML, PEN SQ-INSULIN SCH ×4 (07:00→21:00)
[2018-04-20] MEDS: MIDODRINE 5 MG TABLET PO SCH ×3 (07:27→20:20)
[2018-04-20] MEDS: FLUDROCORTISONE 0.1 MG TABLET PO SCH (07:27)
[2018-04-20] MEDS: FOLIC ACID 1 MG TABLET PO SCH (07:27)
[2018-04-20] MEDS: PANTOPROZOLE 40MG TABLET PO SCH ×2 (07:28→16:54)
[2018-04-20] MEDS: SODIUM CHLORIDE FLUSH 10ML SYR IVF SCH ×2 (07:28→20:21)
[2018-04-20] MEDS: LACTULOSE 10 GM/15 ML UDC PO SCH ×3 (07:29→20:19)
[2018-04-20] MEDS: FOSRENOL HOMEMEDPO SCH ×3 (08:00→16:54)
[2018-04-20 08:26] LABS: MEAN CORPUSCULAR HEMOGLOBIN 34.4 pg (27.5-34.5); MEAN CORPUSCULAR HGB CONC 33.5 g/dL (33.2-36.2); MEAN CORPUSCULAR VOLUME 102.8 fL (81-97); RED BLOOD COUNT 2.22 x10^6/uL (4.38-5.82); RED CELL DISTRIBUTION WIDTH 25.9 % (9.4-14.8)
[2018-04-20 08:33] LABS: ALBUMIN 1.8 g/dL (3.4-5.0); ANION GAP 5 mmol/L (5-15); CALCIUM 7.7 mg/dL (8.5-10.1); CHLORIDE 103 mmol/L (98-107)
[2018-04-20 08:36] LABS: ALKALINE PHOSPHATASE 95 U/L (45-117); BILIRUBIN,TOTAL 1.6 mg/dL (0.2-1.0); CREATININE 8.25 mg/dL (0.7-1.3); TOTAL PROTEIN 4.5 g/dL (6.4-8.2)
[2018-04-20 09:02] LABS: MEAN PLATELET VOLUME 8.3 fL (7.4-10.4)
[2018-04-20 09:03] LABS: BASOPHILS # (AUTO) 0.04 x10^3/uL (0-0.1); BASOPHILS % (AUTO) 1 % (0-1); EOSINOPHILS % (AUTO) 2 % (1-7); LYMPHOCYTES # (AUTO) 1.64 x10^3/uL (1-3.4); LYMPHOCYTES % (AUTO) 35 % (22-44); MD SCAN; MONOCYTES # (AUTO) 0.31 x10^3/uL (0.2-0.8); MONOCYTES % (AUTO) 7 % (2-9); NEUTROPHILS # (AUTO) 2.54 x10^3/uL (1.8-6.8); NEUTROPHILS % (AUTO) 55 % (42-75)
[2018-04-20 09:04] LABS: PLATELET COUNT 43 x10^3/uL (130-400)
[2018-04-20 09:05] LABS: ALANINE AMINOTRANSFERASE < 6 U/L (12-78)
[2018-04-20 12:14] VITALS: BP 101/55
[2018-04-20 19:38] VITALS: BP 100/50
[2018-04-20] MEDS: INSULIN GLARGINE 100 UNITS/ML, PEN SQ-INSULIN SCH (21:13)
[2018-04-21 03:02] VITALS: BP 102/56
[2018-04-21 05:49] LABS: CHLORIDE 103 mmol/L (98-107)
[2018-04-21 06:01] LABS: ALANINE AMINOTRANSFERASE 6 U/L (12-78); ALBUMIN 1.7 g/dL (3.4-5.0); ALKALINE PHOSPHATASE 90 U/L (45-117); ANION GAP 11 mmol/L (5-15); BILIRUBIN,TOTAL 1.7 mg/dL (0.2-1.0); CALCIUM 7.8 mg/dL (8.5-10.1); CREATININE 7.73 mg/dL (0.7-1.3); TOTAL PROTEIN 4.2 g/dL (6.4-8.2)
[2018-04-21 06:49] VITALS: BP 141/50
[2018-04-21] MEDS: INSULIN LISPRO 100 UNITS/ML, PEN SQ-INSULIN SCH ×4 (07:00→20:02)
[2018-04-21] MEDS: FOSRENOL HOMEMEDPO SCH ×3 (08:00→17:00)
[2018-04-21] MEDS: FOLIC ACID 1 MG TABLET PO SCH (08:20)
[2018-04-21] MEDS: MIDODRINE 5 MG TABLET PO SCH ×3 (08:21→20:45)
[2018-04-21] MEDS: LACTULOSE 10 GM/15 ML UDC PO SCH ×3 (08:21→20:45)
[2018-04-21] MEDS: FLUDROCORTISONE 0.1 MG TABLET PO SCH (08:21)
[2018-04-21] MEDS: PANTOPROZOLE 40MG TABLET PO SCH ×2 (08:21→17:14)
[2018-04-21] MEDS: SODIUM CHLORIDE FLUSH 10ML SYR IVF SCH ×2 (08:21→20:45)
[2018-04-21 12:05] VITALS: BP 116/51
[2018-04-21 19:17] VITALS: BP 102/52
[2018-04-21] MEDS: INSULIN GLARGINE 100 UNITS/ML, PEN SQ-INSULIN SCH (20:03)
[2018-04-22 01:04] VITALS: BP 121/53
[2018-04-22] MEDS: INSULIN LISPRO 100 UNITS/ML, PEN SQ-INSULIN SCH ×4 (07:00→21:00)
[2018-04-22] MEDS: FOSRENOL HOMEMEDPO SCH ×3 (08:00→17:00)
[2018-04-22 08:37] VITALS: BP 103/57
[2018-04-22] MEDS: LACTULOSE 10 GM/15 ML UDC PO SCH ×3 (09:48→21:00)
[2018-04-22] MEDS: FLUDROCORTISONE 0.1 MG TABLET PO SCH (09:49)
[2018-04-22] MEDS: FOLIC ACID 1 MG TABLET PO SCH (09:49)
[2018-04-22] MEDS: MIDODRINE 5 MG TABLET PO SCH ×3 (09:49→22:17)
[2018-04-22] MEDS: PANTOPROZOLE 40MG TABLET PO SCH ×2 (09:49→17:30)
[2018-04-22] MEDS: SODIUM CHLORIDE FLUSH 10ML SYR IVF SCH ×2 (09:50→22:16)
[2018-04-22 15:25] VITALS: BP 89/39
[2018-04-22 15:39] VITALS: BP 94/55
[2018-04-22 20:06] VITALS: BP 101/49
[2018-04-22] MEDS: INSULIN GLARGINE 100 UNITS/ML, PEN SQ-INSULIN SCH (22:17)
[2018-04-23 02:26] VITALS: BP 150/52
[2018-04-23 06:31] LABS: ALBUMIN 1.8 g/dL (3.4-5.0); ANION GAP 8 mmol/L (5-15); CALCIUM 7.6 mg/dL (8.5-10.1); CHLORIDE 103 mmol/L (98-107)
[2018-04-23 06:34] LABS: ALANINE AMINOTRANSFERASE 7 U/L (12-78); ALKALINE PHOSPHATASE 92 U/L (45-117); BILIRUBIN,TOTAL 1.7 mg/dL (0.2-1.0); CREATININE 7.29 mg/dL (0.7-1.3); TOTAL PROTEIN 4.3 g/dL (6.4-8.2)
[2018-04-23] MEDS: INSULIN LISPRO 100 UNITS/ML, PEN SQ-INSULIN SCH ×2 (07:00→11:00)
[2018-04-23] MEDS: FOSRENOL HOMEMEDPO SCH ×2 (08:00→12:00)
[2018-04-23 09:26] VITALS: BP 105/65
[2018-04-23] MEDS: MIDODRINE 5 MG TABLET PO SCH (09:29)
[2018-04-23] MEDS: FOLIC ACID 1 MG TABLET PO SCH (09:29)
[2018-04-23] MEDS: FLUDROCORTISONE 0.1 MG TABLET PO SCH (09:30)
[2018-04-23] MEDS: PANTOPROZOLE 40MG TABLET PO SCH (09:31)
[2018-04-23] MEDS: SODIUM CHLORIDE FLUSH 10ML SYR IVF SCH (09:32)
[2018-04-23] MEDS: LACTULOSE 10 GM/15 ML UDC PO SCH (09:32)
[2018-04-23 10:44] LABS: MEAN CORPUSCULAR HEMOGLOBIN 34.7 pg (27.5-34.5); MEAN CORPUSCULAR HGB CONC 33.1 g/dL (33.2-36.2); MEAN CORPUSCULAR VOLUME 104.9 fL (81-97); MEAN PLATELET VOLUME 8.8 fL (7.4-10.4); RED BLOOD COUNT 2.22 x10^6/uL (4.38-5.82); RED CELL DISTRIBUTION WIDTH 25.5 % (9.4-14.8)
[2018-04-23 11:30] LABS: PLATELET COUNT 47 x10^3/uL (130-400)
[2018-04-23 12:30] LABS: BASOPHILS # (AUTO) 0.03 x10^3/uL (0-0.1); BASOPHILS % (AUTO) 1 % (0-1); EOSINOPHILS # (AUTO) 0.11 x10^3/uL (0-0.4); EOSINOPHILS % (AUTO) 2 % (1-7); LYMPHOCYTES # (AUTO) 2.05 x10^3/uL (1-3.4); LYMPHOCYTES % (AUTO) 39 % (22-44); MD SCAN; MONOCYTES # (AUTO) 0.54 x10^3/uL (0.2-0.8); MONOCYTES % (AUTO) 10 % (2-9); NEUTROPHILS # (AUTO) 2.52 x10^3/uL (1.8-6.8); NEUTROPHILS % (AUTO) 48 % (42-75)
[2018-04-23 13:06] VITALS: BP 99/43
[2018-04-23] MEDS ORDERED: MIDO10TA PO (13:59)
== END 2018-04-23 16:54 | disposition home health service (06) | DRG 570 ==
LOC: ED 01:59 → EDIP 02:00 → 4WST 02:18 → DCLOUNGE 04-23 16:48
PROVIDERS: ADMIT Hospitalist; ATTEND Hospitalist
PROC: 30233L1 Transfusion of Nonautologous Fresh Plasma into Peripheral Vein, Percutaneous Approach (ICD-10-PCS; 2018-04-11)
PROC: 30233K1 Transfusion of Nonautologous Frozen Plasma into Peripheral Vein, Percutaneous Approach (ICD-10-PCS; 2018-04-11)
PROC: 30233N1 Transfusion of Nonautologous Red Blood Cells into Peripheral Vein, Percutaneous Approach (ICD-10-PCS; 2018-04-11)
PROC: 5A1D70Z Performance of Urinary Filtration, Intermittent, Less than 6 Hours Per Day (ICD-10-PCS; 2018-04-13)
PROC: 30233R1 Transfusion of Nonautologous Platelets into Peripheral Vein, Percutaneous Approach (ICD-10-PCS; 2018-04-14)
PROC: 0JBN0ZZ Excision of Right Lower Leg Subcutaneous Tissue and Fascia, Open Approach (ICD-10-PCS; principal; 2018-04-14 14:00)
PROC: 5A1D70Z Performance of Urinary Filtration, Intermittent, Less than 6 Hours Per Day (ICD-10-PCS; 2018-04-15)
PROC: 5A1D70Z Performance of Urinary Filtration, Intermittent, Less than 6 Hours Per Day (ICD-10-PCS; 2018-04-17)
PROC: 5A1D70Z Performance of Urinary Filtration, Intermittent, Less than 6 Hours Per Day (ICD-10-PCS; 2018-04-20)
PROC: 5A1D70Z Performance of Urinary Filtration, Intermittent, Less than 6 Hours Per Day (ICD-10-PCS; 2018-04-22)
DX: S80.11XA Contusion of right lower leg, initial encounter (principal); N17.0 Acute kidney failure with tubular necrosis; E43 Unspecified severe protein-calorie malnutrition; N18.6 End stage renal disease; I12.0 Hypertensive chronic kidney disease with stage 5 chronic kidney disease or end stage renal disease; D62 Acute posthemorrhagic anemia; D61.818 Other pancytopenia; D68.9 Coagulation defect, unspecified; E23.0 Hypopituitarism; E27.40 Unspecified adrenocortical insufficiency; Z68.42 Body mass index [BMI] 45.0-49.9, adult; S80.12XA Contusion of left lower leg, initial encounter; D63.1 Anemia in chronic kidney disease; K55.20 Angiodysplasia of colon without hemorrhage; E11.22 Type 2 diabetes mellitus with diabetic chronic kidney disease; E66.01 Morbid (severe) obesity due to excess calories; I95.3 Hypotension of hemodialysis; Z87.11 Personal history of peptic ulcer disease; Z99.2 Dependence on renal dialysis; Z74.01 Bed confinement status; K74.60 Unspecified cirrhosis of liver; K76.0 Fatty (change of) liver, not elsewhere classified; N25.0 Renal osteodystrophy; W18.39XA Other fall on same level, initial encounter; Y93.89 Activity, other specified; Y92.89 Other specified places as the place of occurrence of the external cause; Y99.8 Other external cause status
CPT/HCPCS: 36415; 36430; 80048; 80053; 82040; 82306; 82728; 82962; 83036; 83540; 83550; 83735; 83970; 84100; 84550; 85014; 85018; 85025; 85610; 85730; 86850; 86900; 86923; 96374; G0378; J0171; J0690; J0882; J2250; J2704; J3010; J3430; Q0162; J1815; J2270; J2370; P9016; P9017; P9035

== ENCOUNTER 2018-06-05 13:02 | Inpatient (IN) | payer MEDICAID ==
[~2018-06-05] VITALS: Ht 175.3 cm; Wt 166.0 kg
[2018-06-05 15:43] VITALS: BP 103/62
[2018-06-05] MEDS ORDERED: ONDANSETRON ODT 4 MG PO PRN (16:00)
[2018-06-05] MEDS ORDERED: LABETALOL 5MG/ML, 20ML IVPush PRN (16:00)
[2018-06-05] MEDS ORDERED: ONDANSETRON 2MG/ML, 2ML IVPush PRN (16:00)
[2018-06-05] MEDS ORDERED: DEXTROSE 4 GM TAB.CHEW PO PRN (16:00)
[2018-06-05] MEDS ORDERED: ONDANSETRON ODT 8 MG SL PRN (16:00)
[2018-06-05] MEDS ORDERED: POLYETHYLENE GLYCOL 17 GM PACKET PO PRN (16:00)
[2018-06-05] MEDS ORDERED: GLUCAGON 1 MG IM PRN (16:00)
[2018-06-05] MEDS ORDERED: DEXTROSE 50%, 50ML SYRINGE IVPush PRN (16:00)
[2018-06-05] MEDS: TEMPLATE NON-FORMULARY MED. (Lanthanum Carbonate** (Fosrenol**) 1,000 MG) HOMEMEDPO SCH (16:38)
[2018-06-05] MEDS: INSULIN LISPRO 100 UNITS/ML, PEN SQ-INSULIN SCH ×2 (16:38→21:43)
[2018-06-05] MEDS: LACTULOSE 10 GM/15 ML UDC PO SCH ×2 (16:38→21:00)
[2018-06-05 16:43] LABS: ALANINE AMINOTRANSFERASE 16 U/L (12-78); ALBUMIN 1.3 g/dL (3.4-5.0); ANION GAP 9 mmol/L (5-15); CALCIUM 7.6 mg/dL (8.5-10.1); CHLORIDE 102 mmol/L (98-107); CREATININE 6.82 mg/dL (0.7-1.3)
[2018-06-05 16:45] LABS: ALKALINE PHOSPHATASE 150 U/L (45-117); MEAN CORPUSCULAR VOLUME 106.2 fL (81-97); MEAN PLATELET VOLUME 8.7 fL (7.4-10.4); PLATELET COUNT 71 x10^3/uL (130-400); RED BLOOD COUNT 2.27 x10^6/uL (4.38-5.82); RED CELL DISTRIBUTION WIDTH 22.6 % (9.4-14.8); TOTAL PROTEIN 4.2 g/dL (6.4-8.2)
[2018-06-05 17:34] LABS: BASOPHILS # (AUTO) 0.04 x10^3/uL (0-0.1); BASOPHILS % (AUTO) 0 % (0-1); EOSINOPHILS # (AUTO) 0.08 x10^3/uL (0-0.4); EOSINOPHILS % (AUTO) 1 % (1-7); LYMPHOCYTES # (AUTO) 2.74 x10^3/uL (1-3.4); LYMPHOCYTES % (AUTO) 26 % (22-44); MD MORPH REVIEW ONLY; MONOCYTES # (AUTO) 0.89 x10^3/uL (0.2-0.8); MONOCYTES % (AUTO) 9 % (2-9); NEUTROPHILS # (AUTO) 6.72 x10^3/uL (1.8-6.8); NEUTROPHILS % (AUTO) 64 % (42-75)
[2018-06-05 17:37] LABS: <PLATELET ESTIMATE> DECREASED; <PLT MORPHOLOGY> NORMAL PLT MORPH; OVALOCYTES 1+; POLYCHROMASIA 1+
[2018-06-05 20:40] VITALS: BP 94/61
[2018-06-05] MEDS: SODIUM CHLORIDE FLUSH 10ML SYR IVF SCH (21:00)
[2018-06-05] MEDS: RIFAXIMIN 550 MG TABLET PO SCH (21:42)
[2018-06-05] MEDS: PANTOPROZOLE 40MG TABLET PO SCH (21:42)
[2018-06-05] MEDS: MIDODRINE 5 MG TABLET PO SCH (21:42)
[2018-06-05] MEDS: INSULIN GLARGINE 100 UNITS/ML, PEN SQ-INSULIN SCH (21:44)
[2018-06-06] VITALS (8 sets, daily range): BP systolic 56–135; BP diastolic 22–63
[2018-06-06] MEDS: INSULIN LISPRO 100 UNITS/ML, PEN SQ-INSULIN SCH ×4 (07:00→21:17)
[2018-06-06] MEDS: SENNA/DOCUSATE TABLET PO SCH (07:30)
[2018-06-06] MEDS: TEMPLATE NON-FORMULARY MED. (Lanthanum Carbonate** (Fosrenol**) 1,000 MG) HOMEMEDPO SCH ×3 (07:30→16:42)
[2018-06-06] MEDS: FLUDROCORTISONE 0.1 MG TABLET PO SCH (07:58)
[2018-06-06] MEDS: RIFAXIMIN 550 MG TABLET PO SCH ×2 (07:58→21:07)
[2018-06-06] MEDS: SODIUM CHLORIDE FLUSH 10ML SYR IVF SCH ×2 (07:58→21:08)
[2018-06-06] MEDS: PANTOPROZOLE 40MG TABLET PO SCH ×2 (07:58→21:07)
[2018-06-06] MEDS: MIDODRINE 5 MG TABLET PO SCH ×3 (07:58→21:07)
[2018-06-06] MEDS: LACTULOSE 10 GM/15 ML UDC PO SCH ×3 (07:58→21:08)
[2018-06-06] MEDS: FOLIC ACID 1 MG TABLET PO SCH (07:58)
[2018-06-06] MEDS ORDERED: PIPERACILLIN/TAZO/PMX 3.375GM 50 ML IV SCH (08:30)
[2018-06-06] MEDS ORDERED: PHARMACOKINETIC CONSULTATION MC ONE (08:30)
[2018-06-06] MEDS ORDERED: SODIUM CHLORIDE 0.9%, 500ML IVBOLUS ONE (08:30)
[2018-06-06] MEDS ORDERED: VANCOMYCIN PER PHARMACY MC PRN (08:30)
[2018-06-06] MEDS ORDERED: PHARMACOKINETIC MONITORING MC PRN (08:30)
[2018-06-06 08:37] LABS: MEAN CORPUSCULAR HEMOGLOBIN 35.1 pg (27.5-34.5); MEAN CORPUSCULAR HGB CONC 32.9 g/dL (33.2-36.2); MEAN CORPUSCULAR VOLUME 106.6 fL (81-97); MEAN PLATELET VOLUME 8.5 fL (7.4-10.4); PLATELET COUNT 74 x10^3/uL (130-400); RED BLOOD COUNT 2.16 x10^6/uL (4.38-5.82); RED CELL DISTRIBUTION WIDTH 22.3 % (9.4-14.8)
[2018-06-06 08:47] LABS: ANION GAP 9 mmol/L (5-15); CALCIUM 7.7 mg/dL (8.5-10.1); CHLORIDE 101 mmol/L (98-107); CREATININE 7.65 mg/dL (0.7-1.3)
[2018-06-06 09:04] LABS: MD YES
[2018-06-06 09:05] LABS: BAND#(MANUAL) 2.01 x10^3/uL; BANDS%(MANUAL) 9 % (0-7); LYMPH#(MANUAL) 0.67 x10^3/uL (1-3.4); LYMPHS% (MANUAL) 3 % (22-44); MONOS#(MANUAL) 0.89 x10^3/uL (0.3-2.7); MONOS% (MANUAL) 4 % (2-9); SEGS% (MANUAL) 83 % (42-75)
[2018-06-06 09:06] LABS: <PLATELET ESTIMATE> DECREASED
[2018-06-06 09:07] LABS: ANISOCYTOSIS 2+
[2018-06-06 09:08] LABS: <PLT MORPHOLOGY> NORMAL PLT MORPH; HYPOCHROMIA 1+; POLYCHROMASIA 1+
[2018-06-06] MEDS ORDERED: ALBUMIN HUMAN 25% 100 ML IV PRN (10:00)
[2018-06-06] MEDS: VANCOMYCIN 2,000 MG in SODIUM CHLORIDE 0.9% 500 ML IV SCH (10:53)
[2018-06-06 11:12] LABS: FREE T4 (FREE THYROXINE) 0.92 ng/dL (0.76-1.46)
[2018-06-06] MEDS ORDERED: OMNIPAQUE 350 MG/ML, 150 ML BOTTLE ONE (12:40)
[2018-06-06] MEDS: ALBUMIN HUMAN 25% 50 ML IV PRN (14:48)
[2018-06-06] MEDS: PIPERACILLIN/TAZO 2.25 GM in NS 50 ML IV SCH (18:24)
[2018-06-06] MEDS: INSULIN GLARGINE 100 UNITS/ML, PEN SQ-INSULIN SCH (21:16)
[2018-06-07 01:06] VITALS: BP 79/37
[2018-06-07 02:49] VITALS: BP 86/49
[2018-06-07] MEDS: PIPERACILLIN/TAZO 2.25 GM in NS 50 ML IV SCH ×3 (02:49→16:54)
[2018-06-07 06:21] LABS: MEAN CORPUSCULAR HGB CONC 33.4 g/dL (33.2-36.2); MEAN CORPUSCULAR VOLUME 104.7 fL (81-97); RED BLOOD COUNT 2.18 x10^6/uL (4.38-5.82); RED CELL DISTRIBUTION WIDTH 23.7 % (9.4-14.8)
[2018-06-07 06:29] LABS: ALANINE AMINOTRANSFERASE 13 U/L (12-78); ALBUMIN 1.3 g/dL (3.4-5.0); ANION GAP 9 mmol/L (5-15); CALCIUM 7.3 mg/dL (8.5-10.1); CHLORIDE 103 mmol/L (98-107); CREATININE 5.38 mg/dL (0.7-1.3)
[2018-06-07 06:31] LABS: % IRON SATURATION 40 % (20-55); ALKALINE PHOSPHATASE 107 U/L (45-117); BILIRUBIN,TOTAL 2.2 mg/dL (0.2-1.0); IRON LEVEL 48 mcg/dL (65-175); TOTAL IRON BINDING CAPACITY 120 mcg/dL (250-450); TOTAL PROTEIN 4.1 g/dL (6.4-8.2)
[2018-06-07 06:43] LABS: BASOPHILS # (AUTO) 0.02 x10^3/uL (0-0.1); BASOPHILS % (AUTO) 0 % (0-1); EOSINOPHILS # (AUTO) 0.09 x10^3/uL (0-0.4); EOSINOPHILS % (AUTO) 1 % (1-7); LYMPHOCYTES # (AUTO) 2.12 x10^3/uL (1-3.4); LYMPHOCYTES % (AUTO) 23 % (22-44); MD SCAN; MEAN PLATELET VOLUME 8.3 fL (7.4-10.4); MONOCYTES # (AUTO) 0.82 x10^3/uL (0.2-0.8); MONOCYTES % (AUTO) 9 % (2-9); NEUTROPHILS # (AUTO) 6.05 x10^3/uL (1.8-6.8); NEUTROPHILS % (AUTO) 67 % (42-75)
[2018-06-07 06:45] VITALS: BP 96/56
[2018-06-07 06:45] LABS: PLATELET COUNT 43 x10^3/uL (130-400)
[2018-06-07] MEDS: INSULIN LISPRO 100 UNITS/ML, PEN SQ-INSULIN SCH ×4 (07:00→20:56)
[2018-06-07] MEDS: TEMPLATE NON-FORMULARY MED. (Lanthanum Carbonate** (Fosrenol**) 1,000 MG) HOMEMEDPO SCH ×3 (07:22→16:59)
[2018-06-07] MEDS: FOLIC ACID 1 MG TABLET PO SCH (07:58)
[2018-06-07] MEDS: SENNA/DOCUSATE TABLET PO SCH (07:58)
[2018-06-07] MEDS: RIFAXIMIN 550 MG TABLET PO SCH ×2 (07:58→21:06)
[2018-06-07] MEDS: MIDODRINE 5 MG TABLET PO SCH ×3 (07:58→21:06)
[2018-06-07] MEDS: PANTOPROZOLE 40MG TABLET PO SCH ×2 (07:59→21:06)
[2018-06-07] MEDS: LACTULOSE 10 GM/15 ML UDC PO SCH ×4 (07:59→21:00)
[2018-06-07] MEDS: SODIUM CHLORIDE FLUSH 10ML SYR IVF SCH ×2 (07:59→21:00)
[2018-06-07] MEDS: FLUDROCORTISONE 0.1 MG TABLET PO SCH (07:59)
[2018-06-07] MEDS: VANCOMYCIN 2,000 MG in SODIUM CHLORIDE 0.9% 500 ML IV SCH (11:33)
[2018-06-07 13:00] VITALS: BP 130/67
[2018-06-07 20:00] VITALS: BP 93/53
[2018-06-07] MEDS: INSULIN GLARGINE 100 UNITS/ML, PEN SQ-INSULIN SCH (21:05)
[2018-06-08] MEDS: PIPERACILLIN/TAZO 2.25 GM in NS 50 ML IV SCH (00:41)
[2018-06-08 02:00] VITALS: BP 108/63
[2018-06-08] MEDS: INSULIN LISPRO 100 UNITS/ML, PEN SQ-INSULIN SCH ×4 (07:00→20:55)
[2018-06-08 07:39] VITALS: BP 120/75
[2018-06-08] MEDS: TEMPLATE NON-FORMULARY MED. (Lanthanum Carbonate** (Fosrenol**) 1,000 MG) HOMEMEDPO SCH ×3 (08:00→15:48)
[2018-06-08] MEDS: LACTULOSE 10 GM/15 ML UDC PO SCH ×3 (09:00→20:54)
[2018-06-08] MEDS: SENNA/DOCUSATE TABLET PO SCH (09:00)
[2018-06-08] MEDS: FLUDROCORTISONE 0.1 MG TABLET PO SCH (09:42)
[2018-06-08] MEDS: FOLIC ACID 1 MG TABLET PO SCH (09:42)
[2018-06-08] MEDS: PANTOPROZOLE 40MG TABLET PO SCH ×2 (09:42→20:54)
[2018-06-08] MEDS: MIDODRINE 5 MG TABLET PO SCH ×3 (09:42→20:54)
[2018-06-08] MEDS: ALBUMIN HUMAN 25% 50 ML IV PRN ×2 (11:30→11:35)
[2018-06-08 11:44] LABS: MEAN CORPUSCULAR HGB CONC 33.4 g/dL (33.2-36.2); MEAN CORPUSCULAR VOLUME 104.6 fL (81-97); RED BLOOD COUNT 2.21 x10^6/uL (4.38-5.82); RED CELL DISTRIBUTION WIDTH 23.5 % (9.4-14.8)
[2018-06-08 11:53] LABS: MEAN PLATELET VOLUME 9.1 fL (7.4-10.4)
[2018-06-08 11:58] LABS: BASOPHILS # (AUTO) 0.03 x10^3/uL (0-0.1); BASOPHILS % (AUTO) 1 % (0-1); EOSINOPHILS % (AUTO) 2 % (1-7); LYMPHOCYTES # (AUTO) 1.46 x10^3/uL (1-3.4); LYMPHOCYTES % (AUTO) 25 % (22-44); MD SCAN; MONOCYTES # (AUTO) 0.39 x10^3/uL (0.2-0.8); MONOCYTES % (AUTO) 7 % (2-9); NEUTROPHILS # (AUTO) 3.84 x10^3/uL (1.8-6.8); NEUTROPHILS % (AUTO) 66 % (42-75)
[2018-06-08 11:59] LABS: PLATELET COUNT 31 x10^3/uL (130-400)
[2018-06-08 12:43] VITALS: BP 99/36
[2018-06-08] MEDS: RIFAXIMIN 550 MG TABLET PO SCH ×2 (15:35→20:54)
[2018-06-08] MEDS: SODIUM CHLORIDE FLUSH 10ML SYR IVF SCH ×2 (15:36→20:55)
[2018-06-08] MEDS: CEFAZOLIN PMX 1GM/50ML 50 ML IV SCH (17:17)
[2018-06-08 19:41] VITALS: BP 95/41
[2018-06-08 20:55] VITALS: BP 93/53
[2018-06-08] MEDS: INSULIN GLARGINE 100 UNITS/ML, PEN SQ-INSULIN SCH (20:55)
[2018-06-09 01:17] VITALS: BP 123/52
[2018-06-09] MEDS: CEFAZOLIN PMX 1GM/50ML 50 ML IV SCH (04:27)
[2018-06-09 05:38] LABS: MEAN CORPUSCULAR HGB CONC 33.1 g/dL (33.2-36.2); MEAN CORPUSCULAR VOLUME 105.7 fL (81-97); MEAN PLATELET VOLUME 8.7 fL (7.4-10.4); RED BLOOD COUNT 2.15 x10^6/uL (4.38-5.82); RED CELL DISTRIBUTION WIDTH 23.9 % (9.4-14.8)
[2018-06-09 05:43] LABS: PLATELET COUNT 13 x10^3/uL (130-400)
[2018-06-09 05:49] LABS: ALANINE AMINOTRANSFERASE 14 U/L (12-78); ALBUMIN 1.8 g/dL (3.4-5.0); ANION GAP 9 mmol/L (5-15); CALCIUM 7.3 mg/dL (8.5-10.1); CHLORIDE 103 mmol/L (98-107); CREATININE 4.79 mg/dL (0.7-1.3)
[2018-06-09 05:51] LABS: ALKALINE PHOSPHATASE 101 U/L (45-117); BILIRUBIN,TOTAL 1.6 mg/dL (0.2-1.0); TOTAL PROTEIN 4.2 g/dL (6.4-8.2)
[2018-06-09 06:07] LABS: BASOPHILS # (AUTO) 0.03 x10^3/uL (0-0.1); BASOPHILS % (AUTO) 1 % (0-1); EOSINOPHILS # (AUTO) 0.06 x10^3/uL (0-0.4); EOSINOPHILS % (AUTO) 1 % (1-7); LYMPHOCYTES # (AUTO) 1.39 x10^3/uL (1-3.4); LYMPHOCYTES % (AUTO) 31 % (22-44); MD SCAN; MONOCYTES # (AUTO) 0.33 x10^3/uL (0.2-0.8); MONOCYTES % (AUTO) 7 % (2-9); NEUTROPHILS # (AUTO) 2.73 x10^3/uL (1.8-6.8); NEUTROPHILS % (AUTO) 60 % (42-75)
[2018-06-09] MEDS: INSULIN LISPRO 100 UNITS/ML, PEN SQ-INSULIN SCH ×2 (07:00→11:00)
[2018-06-09 07:42] VITALS: BP 88/49
[2018-06-09] MEDS: TEMPLATE NON-FORMULARY MED. (Lanthanum Carbonate** (Fosrenol**) 1,000 MG) HOMEMEDPO SCH ×2 (07:42→11:46)
[2018-06-09] MEDS: FOLIC ACID 1 MG TABLET PO SCH (08:00)
[2018-06-09] MEDS: PANTOPROZOLE 40MG TABLET PO SCH (08:00)
[2018-06-09] MEDS: FLUDROCORTISONE 0.1 MG TABLET PO SCH (08:00)
[2018-06-09] MEDS: RIFAXIMIN 550 MG TABLET PO SCH (08:00)
[2018-06-09] MEDS: MIDODRINE 5 MG TABLET PO SCH (08:01)
[2018-06-09] MEDS: LACTULOSE 10 GM/15 ML UDC PO SCH (08:06)
[2018-06-09] MEDS: SENNA/DOCUSATE TABLET PO SCH (08:06)
[2018-06-09] MEDS: SODIUM CHLORIDE FLUSH 10ML SYR IVF SCH (08:06)
[2018-06-09] MEDS ORDERED: CEPH-368 PO (09:51)
[2018-06-09 13:38] VITALS: BP 81/34
[2018-06-09 14:12] VITALS: BP 91/51
== END 2018-06-09 15:45 | disposition home health service (06) | DRG 871 ==
LOC: 4EST 15:25 → INTOOBSV 15:25 → 4EST 19:19 → OBSVTOIN 06-07 10:12
PROVIDERS: ADMIT Hospitalist; ATTEND Hospitalist
PROC: 30233N1 Transfusion of Nonautologous Red Blood Cells into Peripheral Vein, Percutaneous Approach (ICD-10-PCS; principal; 2018-06-06)
PROC: 5A1D70Z Performance of Urinary Filtration, Intermittent, Less than 6 Hours Per Day (ICD-10-PCS; 2018-06-06)
PROC: 5A1D70Z Performance of Urinary Filtration, Intermittent, Less than 6 Hours Per Day (ICD-10-PCS; 2018-06-08)
DX: A41.9 Sepsis, unspecified organism (principal); N18.6 End stage renal disease; I81 Portal vein thrombosis; I12.0 Hypertensive chronic kidney disease with stage 5 chronic kidney disease or end stage renal disease; K92.1 Melena; E46 Unspecified protein-calorie malnutrition; Z68.43 Body mass index [BMI] 50.0-59.9, adult; E27.40 Unspecified adrenocortical insufficiency; L03.115 Cellulitis of right lower limb; E11.22 Type 2 diabetes mellitus with diabetic chronic kidney disease; Z99.2 Dependence on renal dialysis; N25.0 Renal osteodystrophy; D69.6 Thrombocytopenia, unspecified; D63.1 Anemia in chronic kidney disease; E66.01 Morbid (severe) obesity due to excess calories; Z87.11 Personal history of peptic ulcer disease; K74.60 Unspecified cirrhosis of liver; K76.0 Fatty (change of) liver, not elsewhere classified; E55.9 Vitamin D deficiency, unspecified; Z87.01 Personal history of pneumonia (recurrent)
CPT/HCPCS: 36415; 71045; 71260; 74177; 80048; 80053; 82274; 82306; 82533; 82728; 82962; 83540; 83550; 83605; 83690; 83735; 83970; 84100; 84145; 84439; 84443; 84481; 85025; 86850; 86900; 86923; 87040; 87070; 87077; 87186; 87205; G0378; J0690; J2543; J3370; P9047; Q9967; J1815; J7040; P9016

== ENCOUNTER 2018-06-09 16:16 | Inpatient (IN) | payer MEDICAID ==
[~2018-06-09] VITALS: Ht 175.3 cm; Wt 172.0 kg
[~2018-06-09 16:16] MED LIST changes: +CEPH-368 PO
[2018-06-09 17:18] LABS: ANION GAP 11 mmol/L (5-15); CALCIUM 7.5 mg/dL (8.5-10.1); CHLORIDE 101 mmol/L (98-107); CREATININE 5.73 mg/dL (0.7-1.3)
[2018-06-09 17:26] LABS: MEAN CORPUSCULAR HGB CONC 32.7 g/dL (33.2-36.2); MEAN CORPUSCULAR VOLUME 107.3 fL (81-97); MEAN PLATELET VOLUME 8.2 fL (7.4-10.4); RED BLOOD COUNT 2.13 x10^6/uL (4.38-5.82); RED CELL DISTRIBUTION WIDTH 24.1 % (9.4-14.8)
[2018-06-09 17:29] LABS: PLATELET COUNT 34 x10^3/uL (130-400)
[2018-06-09 17:54] LABS: BASOPHILS # (AUTO) 0.04 x10^3/uL (0-0.1); BASOPHILS % (AUTO) 1 % (0-1); EOSINOPHILS # (AUTO) 0.11 x10^3/uL (0-0.4); EOSINOPHILS % (AUTO) 2 % (1-7); LYMPHOCYTES # (AUTO) 1.64 x10^3/uL (1-3.4); LYMPHOCYTES % (AUTO) 27 % (22-44); MD SCAN; MONOCYTES # (AUTO) 0.57 x10^3/uL (0.2-0.8); MONOCYTES % (AUTO) 10 % (2-9); NEUTROPHILS # (AUTO) 3.63 x10^3/uL (1.8-6.8); NEUTROPHILS % (AUTO) 61 % (42-75)
[2018-06-09] MEDS ORDERED: POTASSIUM CHLORIDE 20 MEQ TAB.ER.PRT PO ONE (19:30)
[2018-06-09] MEDS ORDERED: ONDANSETRON ODT 8 MG SL PRN (19:30)
[2018-06-09] MEDS ORDERED: ACETAMINOPHEN 325 MG TABLET PO PRN (19:30)
[2018-06-09 20:51] VITALS: BP 103/55
[2018-06-09] MEDS: INSULIN GLARGINE 100 UNITS/ML, PEN SQ-INSULIN SCH (21:42)
[2018-06-09] MEDS: LACTULOSE 10 GM/15 ML UDC PO SCH (21:46)
[2018-06-09] MEDS: CEPHALEXIN 500 MG CAPSULE PO SCH (21:46)
[2018-06-09] MEDS: PANTOPROZOLE 40MG TABLET PO SCH (21:47)
[2018-06-09] MEDS: SODIUM CHLORIDE FLUSH 10ML SYR IVF SCH (21:47)
[2018-06-09] MEDS: MIDODRINE 5 MG TABLET PO SCH (21:47)
[2018-06-09] MEDS: RIFAXIMIN 550 MG TABLET PO SCH (21:47)
[2018-06-10 01:52] VITALS: BP 104/53
[2018-06-10 07:24] VITALS: BP 87/44
[2018-06-10] MEDS: TEMPLATE NON-FORMULARY MED. (Lanthanum Carbonate** (Fosrenol**) 1,000 MG) HOMEMEDPO SCH ×3 (08:00→16:36)
[2018-06-10] MEDS: CEPHALEXIN 500 MG CAPSULE PO SCH ×3 (08:41→21:27)
[2018-06-10] MEDS: LACTULOSE 10 GM/15 ML UDC PO SCH ×3 (08:42→21:00)
[2018-06-10] MEDS: MIDODRINE 5 MG TABLET PO SCH ×3 (08:42→21:28)
[2018-06-10] MEDS: PANTOPROZOLE 40MG TABLET PO SCH ×2 (08:42→21:28)
[2018-06-10] MEDS: FLUDROCORTISONE 0.1 MG TABLET PO SCH (08:42)
[2018-06-10] MEDS: SODIUM CHLORIDE FLUSH 10ML SYR IVF SCH ×2 (08:42→21:27)
[2018-06-10] MEDS: FOLIC ACID 1 MG TABLET PO SCH (08:42)
[2018-06-10] MEDS: RIFAXIMIN 550 MG TABLET PO SCH ×2 (08:42→21:28)
[2018-06-10] MEDS: ALBUMIN HUMAN 25% 100 ML IV PRN (09:02)
[2018-06-10] MEDS: CEFAZOLIN PMX 2GM/50ML 50 ML IVPB SCH (12:48)
[2018-06-10 14:42] VITALS: BP 89/50
[2018-06-10 19:18] VITALS: BP 96/57
[2018-06-10] MEDS: INSULIN GLARGINE 100 UNITS/ML, PEN SQ-INSULIN SCH (21:29)
[2018-06-11] VITALS (8 sets, daily range): BP systolic 95–145; BP diastolic 50–62
[2018-06-11] MEDS: CEFAZOLIN PMX 2GM/50ML 50 ML IVPB SCH ×3 (00:13→23:50)
[2018-06-11 05:21] LABS: ALBUMIN 1.7 g/dL (3.4-5.0); ANION GAP 6 mmol/L (5-15); CALCIUM 7.1 mg/dL (8.5-10.1); CHLORIDE 102 mmol/L (98-107)
[2018-06-11 05:26] LABS: ALANINE AMINOTRANSFERASE 9 U/L (12-78); ALKALINE PHOSPHATASE 88 U/L (45-117); BILIRUBIN,TOTAL 1.1 mg/dL (0.2-1.0); CREATININE 5.25 mg/dL (0.7-1.3)
[2018-06-11 05:42] LABS: MEAN CORPUSCULAR HEMOGLOBIN 35.2 pg (27.5-34.5); MEAN CORPUSCULAR VOLUME 106.6 fL (81-97); RED BLOOD COUNT 1.78 x10^6/uL (4.38-5.82); RED CELL DISTRIBUTION WIDTH 23.4 % (9.4-14.8)
[2018-06-11 06:28] LABS: BASOPHILS # (AUTO) 0.03 x10^3/uL (0-0.1); BASOPHILS % (AUTO) 1 % (0-1); EOSINOPHILS # (AUTO) 0.07 x10^3/uL (0-0.4); EOSINOPHILS % (AUTO) 2 % (1-7); LYMPHOCYTES # (AUTO) 1.58 x10^3/uL (1-3.4); LYMPHOCYTES % (AUTO) 31 % (22-44); MD SCAN; MEAN PLATELET VOLUME 8.7 fL (7.4-10.4); MONOCYTES # (AUTO) 0.47 x10^3/uL (0.2-0.8); MONOCYTES % (AUTO) 9 % (2-9); NEUTROPHILS % (AUTO) 58 % (42-75)
[2018-06-11 06:35] LABS: PLATELET COUNT 25 x10^3/uL (130-400)
[2018-06-11] MEDS: TEMPLATE NON-FORMULARY MED. (Lanthanum Carbonate** (Fosrenol**) 1,000 MG) HOMEMEDPO SCH ×3 (09:46→16:49)
[2018-06-11] MEDS: FLUDROCORTISONE 0.1 MG TABLET PO SCH (09:46)
[2018-06-11] MEDS: LACTULOSE 10 GM/15 ML UDC PO SCH ×4 (09:46→22:47)
[2018-06-11] MEDS: RIFAXIMIN 550 MG TABLET PO SCH ×2 (09:46→22:46)
[2018-06-11] MEDS: FOLIC ACID 1 MG TABLET PO SCH (09:46)
[2018-06-11] MEDS: SODIUM CHLORIDE FLUSH 10ML SYR IVF SCH ×2 (09:46→22:44)
[2018-06-11] MEDS: PANTOPROZOLE 40MG TABLET PO SCH ×2 (09:46→22:46)
[2018-06-11] MEDS: DARBEPOETIN 60 MCG/ML SQ SCH (11:23)
[2018-06-11] MEDS: MIDODRINE 5 MG TABLET PO SCH ×3 (11:24→22:46)
[2018-06-11] MEDS: INSULIN GLARGINE 100 UNITS/ML, PEN SQ-INSULIN SCH (22:46)
[2018-06-12] VITALS (8 sets, daily range): BP systolic 84–124; BP diastolic 32–63
[2018-06-12 05:23] LABS: MEAN CORPUSCULAR HEMOGLOBIN 34.9 pg (27.5-34.5); MEAN CORPUSCULAR HGB CONC 33.5 g/dL (33.2-36.2); MEAN CORPUSCULAR VOLUME 104.1 fL (81-97); MEAN PLATELET VOLUME 9.7 fL (7.4-10.4); RED BLOOD COUNT 1.94 x10^6/uL (4.38-5.82)
[2018-06-12 05:27] LABS: ALBUMIN 1.6 g/dL (3.4-5.0); ANION GAP 12 mmol/L (5-15); CALCIUM 7.2 mg/dL (8.5-10.1); CHLORIDE 101 mmol/L (98-107); CREATININE 6.32 mg/dL (0.7-1.3)
[2018-06-12 05:29] LABS: ALKALINE PHOSPHATASE 97 U/L (45-117); TOTAL PROTEIN 3.9 g/dL (6.4-8.2)
[2018-06-12 05:30] LABS: ALANINE AMINOTRANSFERASE < 6 U/L (12-78)
[2018-06-12 05:34] LABS: PLATELET COUNT 25 x10^3/uL (130-400)
[2018-06-12 05:51] LABS: BASOPHILS # (AUTO) 0.03 x10^3/uL (0-0.1); BASOPHILS % (AUTO) 1 % (0-1); EOSINOPHILS % (AUTO) 2 % (1-7); LYMPHOCYTES # (AUTO) 1.56 x10^3/uL (1-3.4); LYMPHOCYTES % (AUTO) 31 % (22-44); MD SCAN; MONOCYTES % (AUTO) 8 % (2-9); NEUTROPHILS # (AUTO) 2.93 x10^3/uL (1.8-6.8); NEUTROPHILS % (AUTO) 58 % (42-75)
[2018-06-12] MEDS: MIDODRINE 5 MG TABLET PO SCH ×3 (09:37→22:18)
[2018-06-12] MEDS: LACTULOSE 10 GM/15 ML UDC PO SCH ×3 (09:37→22:18)
[2018-06-12] MEDS: PANTOPROZOLE 40MG TABLET PO SCH ×2 (09:37→22:19)
[2018-06-12] MEDS: FOLIC ACID 1 MG TABLET PO SCH (09:37)
[2018-06-12] MEDS: FLUDROCORTISONE 0.1 MG TABLET PO SCH (09:37)
[2018-06-12] MEDS: RIFAXIMIN 550 MG TABLET PO SCH ×2 (09:37→22:19)
[2018-06-12] MEDS: TEMPLATE NON-FORMULARY MED. (Lanthanum Carbonate** (Fosrenol**) 1,000 MG) HOMEMEDPO SCH ×3 (09:38→17:00)
[2018-06-12] MEDS: SODIUM CHLORIDE FLUSH 10ML SYR IVF SCH ×2 (09:38→22:17)
[2018-06-12] MEDS: CEFAZOLIN PMX 2GM/50ML 50 ML IVPB SCH (11:55)
[2018-06-12] MEDS: ALBUMIN HUMAN 25% 100 ML IV PRN (15:24)
[2018-06-12] MEDS: INSULIN GLARGINE 100 UNITS/ML, PEN SQ-INSULIN SCH (22:19)
[2018-06-13 02:01] VITALS: BP 116/63
[2018-06-13] MEDS ORDERED: FUROSEMIDE 20 MG/2 ML IV ONE (05:00)
[2018-06-13 06:04] LABS: ALBUMIN 1.8 g/dL (3.4-5.0); ANION GAP 9 mmol/L (5-15); CALCIUM 7.3 mg/dL (8.5-10.1); CHLORIDE 105 mmol/L (98-107); CREATININE 4.64 mg/dL (0.7-1.3)
[2018-06-13 06:06] LABS: ALKALINE PHOSPHATASE 94 U/L (45-117); BILIRUBIN,TOTAL 1.2 mg/dL (0.2-1.0)
[2018-06-13 06:12] LABS: MEAN CORPUSCULAR HEMOGLOBIN 34.2 pg (27.5-34.5); MEAN CORPUSCULAR HGB CONC 33.3 g/dL (33.2-36.2); MEAN CORPUSCULAR VOLUME 102.6 fL (81-97); MEAN PLATELET VOLUME 9.2 fL (7.4-10.4); RED BLOOD COUNT 2.08 x10^6/uL (4.38-5.82); RED CELL DISTRIBUTION WIDTH 24.9 % (9.4-14.8)
[2018-06-13 06:13] LABS: ALANINE AMINOTRANSFERASE < 6 U/L (12-78)
[2018-06-13 06:25] LABS: PLATELET COUNT 24 x10^3/uL (130-400)
[2018-06-13 06:53] LABS: BASOPHILS # (AUTO) 0.02 x10^3/uL (0-0.1); BASOPHILS % (AUTO) 1 % (0-1); EOSINOPHILS # (AUTO) 0.07 x10^3/uL (0-0.4); EOSINOPHILS % (AUTO) 2 % (1-7); LYMPHOCYTES # (AUTO) 1.33 x10^3/uL (1-3.4); LYMPHOCYTES % (AUTO) 27 % (22-44); MD MORPH REVIEW ONLY; MONOCYTES # (AUTO) 0.43 x10^3/uL (0.2-0.8); MONOCYTES % (AUTO) 9 % (2-9); NEUTROPHILS # (AUTO) 3.13 x10^3/uL (1.8-6.8); NEUTROPHILS % (AUTO) 63 % (42-75)
[2018-06-13 06:54] LABS: <PLATELET ESTIMATE> DECREASED; ANISOCYTOSIS 1+; OVALOCYTES 1+; POLYCHROMASIA 1+
[2018-06-13 06:55] LABS: <PLT MORPHOLOGY> NORMAL PLT MORPH
[2018-06-13] MEDS: LACTULOSE 10 GM/15 ML UDC PO SCH ×3 (08:42→22:22)
[2018-06-13] MEDS: PANTOPROZOLE 40MG TABLET PO SCH ×2 (08:43→22:22)
[2018-06-13] MEDS: TEMPLATE NON-FORMULARY MED. (Lanthanum Carbonate** (Fosrenol**) 1,000 MG) HOMEMEDPO SCH ×3 (08:43→17:08)
[2018-06-13] MEDS: FLUDROCORTISONE 0.1 MG TABLET PO SCH (08:43)
[2018-06-13] MEDS: MIDODRINE 5 MG TABLET PO SCH ×3 (08:43→22:22)
[2018-06-13] MEDS: FOLIC ACID 1 MG TABLET PO SCH (08:44)
[2018-06-13] MEDS: SODIUM CHLORIDE FLUSH 10ML SYR IVF SCH ×2 (08:44→22:22)
[2018-06-13] MEDS: RIFAXIMIN 550 MG TABLET PO SCH ×2 (08:44→22:21)
[2018-06-13 11:33] VITALS: BP 121/52
[2018-06-13 14:00] VITALS: BP 91/39
[2018-06-13] MEDS: CEFAZOLIN PMX 2GM/50ML 50 ML IVPB SCH (15:42)
[2018-06-13 17:15] VITALS: BP 90/40
[2018-06-13 20:43] VITALS: BP 111/62
[2018-06-13] MEDS: INSULIN GLARGINE 100 UNITS/ML, PEN SQ-INSULIN SCH (22:31)
[2018-06-14 01:08] VITALS: BP 100/50
[2018-06-14 07:20] VITALS: BP_SYST 92; BP_SYST 93; BP_DIAS 39; BP_DIAS 47
[2018-06-14] MEDS: TEMPLATE NON-FORMULARY MED. (Lanthanum Carbonate** (Fosrenol**) 1,000 MG) HOMEMEDPO SCH ×3 (08:00→15:50)
[2018-06-14] MEDS: RIFAXIMIN 550 MG TABLET PO SCH ×2 (08:27→21:10)
[2018-06-14] MEDS: MIDODRINE 5 MG TABLET PO SCH ×3 (08:27→15:50)
[2018-06-14] MEDS: PANTOPROZOLE 40MG TABLET PO SCH ×2 (08:27→21:10)
[2018-06-14] MEDS: SODIUM CHLORIDE FLUSH 10ML SYR IVF SCH ×2 (08:28→20:30)
[2018-06-14] MEDS: FLUDROCORTISONE 0.1 MG TABLET PO SCH (08:28)
[2018-06-14] MEDS: FOLIC ACID 1 MG TABLET PO SCH (08:28)
[2018-06-14] MEDS: LACTULOSE 10 GM/15 ML UDC PO SCH ×3 (08:28→20:36)
[2018-06-14 13:05] VITALS: BP 109/56
[2018-06-14] MEDS: CEFAZOLIN PMX 2GM/50ML 50 ML IVPB SCH (15:50)
[2018-06-14 16:18] LABS: MEAN CORPUSCULAR HEMOGLOBIN 33.4 pg (27.5-34.5); MEAN CORPUSCULAR HGB CONC 32.3 g/dL (33.2-36.2); MEAN CORPUSCULAR VOLUME 103.3 fL (81-97); RED BLOOD COUNT 2.24 x10^6/uL (4.38-5.82); RED CELL DISTRIBUTION WIDTH 24.6 % (9.4-14.8)
[2018-06-14 16:19] LABS: MD YES; MEAN PLATELET VOLUME 9.6 fL (7.4-10.4)
[2018-06-14 16:20] LABS: ANION GAP 10 mmol/L (5-15); CALCIUM 7.2 mg/dL (8.5-10.1); CHLORIDE 104 mmol/L (98-107); CREATININE 6.42 mg/dL (0.7-1.3)
[2018-06-14 16:22] LABS: PLATELET COUNT 41 x10^3/uL (130-400)
[2018-06-14 16:45] LABS: EOS#(MANUAL) 0.05 x10^3/uL (0.0-0.4); EOS% (MANUAL) 1 % (1-7); LYMPH#(MANUAL) 1.25 x10^3/uL (1-3.4); LYMPHS% (MANUAL) 25 % (22-44); MONOS#(MANUAL) 0.35 x10^3/uL (0.3-2.7); MONOS% (MANUAL) 7 % (2-9); SEG#(MANUAL) 3.35 x10^3/uL (1.8-6.8); SEGS% (MANUAL) 67 % (42-75)
[2018-06-14 16:46] LABS: OVALOCYTES 1+; POLYCHROMASIA 1+
[2018-06-14 16:48] LABS: <PLATELET ESTIMATE> DECREASED; <PLT MORPHOLOGY> NORMAL PLT MORPH; HYPOCHROMIA 1+; MICROCYTOSIS 1+
[2018-06-14 20:08] VITALS: BP 89/45
[2018-06-14] MEDS: INSULIN GLARGINE 100 UNITS/ML, PEN SQ-INSULIN SCH (21:10)
[2018-06-15 02:16] VITALS: BP 81/30
[2018-06-15 02:37] VITALS: BP 120/51
[2018-06-15 05:04] LABS: MEAN CORPUSCULAR HEMOGLOBIN 33.6 pg (27.5-34.5); MEAN CORPUSCULAR HGB CONC 32.3 g/dL (33.2-36.2); MEAN CORPUSCULAR VOLUME 103.9 fL (81-97); MEAN PLATELET VOLUME 9.1 fL (7.4-10.4); RED BLOOD COUNT 2.14 x10^6/uL (4.38-5.82); RED CELL DISTRIBUTION WIDTH 25.6 % (9.4-14.8)
[2018-06-15 05:08] LABS: PLATELET COUNT 39 x10^3/uL (130-400)
[2018-06-15 05:20] LABS: ALBUMIN 1.7 g/dL (3.4-5.0); ANION GAP 11 mmol/L (5-15); CALCIUM 7.8 mg/dL (8.5-10.1); CHLORIDE 103 mmol/L (98-107); CREATININE 7.16 mg/dL (0.7-1.3)
[2018-06-15 05:21] LABS: ALANINE AMINOTRANSFERASE < 6 U/L (12-78)
[2018-06-15 05:22] LABS: ALKALINE PHOSPHATASE 93 U/L (45-117); BILIRUBIN,TOTAL 1.1 mg/dL (0.2-1.0); TOTAL PROTEIN 4.3 g/dL (6.4-8.2)
[2018-06-15 06:00] LABS: BASOPHILS # (AUTO) 0.01 x10^3/uL (0-0.1); BASOPHILS % (AUTO) 0 % (0-1); EOSINOPHILS % (AUTO) 0 % (1-7); LYMPHOCYTES # (AUTO) 1.52 x10^3/uL (1-3.4); LYMPHOCYTES % (AUTO) 27 % (22-44); MD SCAN; MONOCYTES # (AUTO) 0.45 x10^3/uL (0.2-0.8); MONOCYTES % (AUTO) 8 % (2-9); NEUTROPHILS # (AUTO) 3.64 x10^3/uL (1.8-6.8); NEUTROPHILS % (AUTO) 65 % (42-75)
[2018-06-15 07:09] VITALS: BP 92/49
[2018-06-15] MEDS: TEMPLATE NON-FORMULARY MED. (Lanthanum Carbonate** (Fosrenol**) 1,000 MG) HOMEMEDPO SCH ×3 (08:00→16:23)
[2018-06-15] MEDS: SODIUM CHLORIDE FLUSH 10ML SYR IVF SCH ×2 (09:00→21:57)
[2018-06-15] MEDS: LACTULOSE 10 GM/15 ML UDC PO SCH ×3 (09:00→21:00)
[2018-06-15] MEDS: RIFAXIMIN 550 MG TABLET PO SCH ×2 (09:37→21:57)
[2018-06-15] MEDS: PANTOPROZOLE 40MG TABLET PO SCH ×2 (09:37→21:57)
[2018-06-15] MEDS: FOLIC ACID 1 MG TABLET PO SCH (09:37)
[2018-06-15] MEDS: FLUDROCORTISONE 0.1 MG TABLET PO SCH (09:38)
[2018-06-15] MEDS: MIDODRINE 5 MG TABLET PO SCH ×2 (09:38→21:56)
[2018-06-15 13:34] VITALS: BP 99/49
[2018-06-15] MEDS: CEFAZOLIN PMX 2GM/50ML 50 ML IVPB SCH (15:12)
[2018-06-15 21:35] VITALS: BP 98/59
[2018-06-15] MEDS: INSULIN GLARGINE 100 UNITS/ML, PEN SQ-INSULIN SCH (21:57)
[2018-06-16 02:00] VITALS: BP 115/64
[2018-06-16] MEDS: MIDODRINE 5 MG TABLET PO SCH ×4 (06:22→20:24)
[2018-06-16 06:50] VITALS: BP 119/66
[2018-06-16] MEDS: RIFAXIMIN 550 MG TABLET PO SCH ×2 (07:23→20:24)
[2018-06-16] MEDS: PANTOPROZOLE 40MG TABLET PO SCH ×2 (07:24→20:24)
[2018-06-16] MEDS: FOLIC ACID 1 MG TABLET PO SCH (07:24)
[2018-06-16] MEDS: SODIUM CHLORIDE FLUSH 10ML SYR IVF SCH ×2 (07:27→20:24)
[2018-06-16] MEDS: TEMPLATE NON-FORMULARY MED. (Lanthanum Carbonate** (Fosrenol**) 1,000 MG) HOMEMEDPO SCH ×3 (07:27→16:55)
[2018-06-16] MEDS: FLUDROCORTISONE 0.1 MG TABLET PO SCH (07:27)
[2018-06-16] MEDS: LACTULOSE 10 GM/15 ML UDC PO SCH ×3 (07:28→20:24)
[2018-06-16 12:57] VITALS: BP 102/52
[2018-06-16 20:02] VITALS: BP 130/61
[2018-06-16] MEDS: INSULIN GLARGINE 100 UNITS/ML, PEN SQ-INSULIN SCH (20:24)
[2018-06-17] VITALS (12 sets, daily range): BP systolic 78–110; BP diastolic 40–90
[2018-06-17] MEDS: TEMPLATE NON-FORMULARY MED. (Lanthanum Carbonate** (Fosrenol**) 1,000 MG) HOMEMEDPO SCH ×3 (08:00→16:29)
[2018-06-17] MEDS: RIFAXIMIN 550 MG TABLET PO SCH ×2 (08:04→21:07)
[2018-06-17] MEDS: MIDODRINE 5 MG TABLET PO SCH ×3 (08:04→21:07)
[2018-06-17] MEDS: SODIUM CHLORIDE FLUSH 10ML SYR IVF SCH ×2 (08:05→20:59)
[2018-06-17] MEDS: LACTULOSE 10 GM/15 ML UDC PO SCH ×3 (08:05→20:59)
[2018-06-17] MEDS: FOLIC ACID 1 MG TABLET PO SCH (08:05)
[2018-06-17] MEDS: PANTOPROZOLE 40MG TABLET PO SCH ×2 (08:05→21:07)
[2018-06-17] MEDS: FLUDROCORTISONE 0.1 MG TABLET PO SCH (08:05)
[2018-06-17 11:40] LABS: MEAN CORPUSCULAR HEMOGLOBIN 34.2 pg (27.5-34.5); MEAN CORPUSCULAR HGB CONC 32.7 g/dL (33.2-36.2); MEAN CORPUSCULAR VOLUME 104.6 fL (81-97); MEAN PLATELET VOLUME 8.5 fL (7.4-10.4); RED BLOOD COUNT 1.79 x10^6/uL (4.38-5.82); RED CELL DISTRIBUTION WIDTH 24.8 % (9.4-14.8)
[2018-06-17 11:41] LABS: BASOPHILS # (AUTO) 0.01 x10^3/uL (0-0.1); BASOPHILS % (AUTO) 0 % (0-1); EOSINOPHILS # (AUTO) 0.07 x10^3/uL (0-0.4); EOSINOPHILS % (AUTO) 2 % (1-7); LYMPHOCYTES # (AUTO) 0.97 x10^3/uL (1-3.4); LYMPHOCYTES % (AUTO) 27 % (22-44); MD SCAN; MONOCYTES # (AUTO) 0.32 x10^3/uL (0.2-0.8); MONOCYTES % (AUTO) 9 % (2-9); NEUTROPHILS # (AUTO) 2.28 x10^3/uL (1.8-6.8); NEUTROPHILS % (AUTO) 63 % (42-75); PLATELET COUNT 26 x10^3/uL (130-400)
[2018-06-17] MEDS: INSULIN GLARGINE 100 UNITS/ML, PEN SQ-INSULIN SCH (21:17)
[2018-06-18 00:49] VITALS: BP 79/40
[2018-06-18 02:04] VITALS: BP 88/50
[2018-06-18 07:23] LABS: MEAN CORPUSCULAR HEMOGLOBIN 34.3 pg (27.5-34.5); MEAN CORPUSCULAR HGB CONC 33.7 g/dL (33.2-36.2); MEAN PLATELET VOLUME 8.8 fL (7.4-10.4); RED BLOOD COUNT 2.18 x10^6/uL (4.38-5.82); RED CELL DISTRIBUTION WIDTH 25.4 % (9.4-14.8)
[2018-06-18 07:27] LABS: PLATELET COUNT 24 x10^3/uL (130-400)
[2018-06-18 07:51] VITALS: BP 87/48
[2018-06-18] MEDS: TEMPLATE NON-FORMULARY MED. (Lanthanum Carbonate** (Fosrenol**) 1,000 MG) HOMEMEDPO SCH ×3 (08:00→16:54)
[2018-06-18 08:06] LABS: MD MORPH REVIEW ONLY
[2018-06-18 08:07] LABS: BASOPHILS # (AUTO) 0.01 x10^3/uL (0-0.1); BASOPHILS % (AUTO) 0 % (0-1); EOSINOPHILS # (AUTO) 0.08 x10^3/uL (0-0.4); EOSINOPHILS % (AUTO) 3 % (1-7); LYMPHOCYTES # (AUTO) 1.03 x10^3/uL (1-3.4); LYMPHOCYTES % (AUTO) 32 % (22-44); MONOCYTES % (AUTO) 9 % (2-9); NEUTROPHILS # (AUTO) 1.85 x10^3/uL (1.8-6.8); NEUTROPHILS % (AUTO) 56 % (42-75)
[2018-06-18 08:08] LABS: ANISOCYTOSIS 2+
[2018-06-18 08:10] LABS: OVALOCYTES 1+; POLYCHROMASIA 1+
[2018-06-18 08:11] LABS: <PLATELET ESTIMATE> DECREASED; <PLT MORPHOLOGY> NORMAL PLT MORPH
[2018-06-18] MEDS: FLUDROCORTISONE 0.1 MG TABLET PO SCH (08:23)
[2018-06-18] MEDS: FOLIC ACID 1 MG TABLET PO SCH (08:23)
[2018-06-18] MEDS: PANTOPROZOLE 40MG TABLET PO SCH ×2 (08:23→20:53)
[2018-06-18] MEDS: SODIUM CHLORIDE FLUSH 10ML SYR IVF SCH ×2 (08:23→20:53)
[2018-06-18] MEDS: RIFAXIMIN 550 MG TABLET PO SCH ×2 (08:23→20:53)
[2018-06-18] MEDS: MIDODRINE 5 MG TABLET PO SCH ×3 (08:23→20:53)
[2018-06-18] MEDS: LACTULOSE 10 GM/15 ML UDC PO SCH ×3 (08:24→20:53)
[2018-06-18 13:35] VITALS: BP 82/45
[2018-06-18 20:00] VITALS: BP 89/42
[2018-06-18] MEDS: INSULIN GLARGINE 100 UNITS/ML, PEN SQ-INSULIN SCH (20:53)
[2018-06-19 01:33] VITALS: BP 104/62
[2018-06-19 08:00] VITALS: BP 89/64
[2018-06-19] MEDS: TEMPLATE NON-FORMULARY MED. (Lanthanum Carbonate** (Fosrenol**) 1,000 MG) HOMEMEDPO SCH ×3 (08:00→16:32)
[2018-06-19] MEDS: RIFAXIMIN 550 MG TABLET PO SCH ×2 (08:12→21:34)
[2018-06-19] MEDS: FOLIC ACID 1 MG TABLET PO SCH (08:12)
[2018-06-19] MEDS: FLUDROCORTISONE 0.1 MG TABLET PO SCH (08:13)
[2018-06-19] MEDS: PANTOPROZOLE 40MG TABLET PO SCH ×2 (08:15→21:34)
[2018-06-19] MEDS: MIDODRINE 5 MG TABLET PO SCH ×3 (08:15→21:34)
[2018-06-19] MEDS: SODIUM CHLORIDE FLUSH 10ML SYR IVF SCH ×2 (08:17→21:00)
[2018-06-19] MEDS: LACTULOSE 10 GM/15 ML UDC PO SCH ×3 (08:18→21:00)
[2018-06-19 09:50] VITALS: BP 120/64
[2018-06-19] MEDS: DARBEPOETIN 60 MCG/ML SQ SCH (10:37)
[2018-06-19 13:30] VITALS: BP 95/54
[2018-06-19] MEDS: ALBUMIN HUMAN 25% 100 ML IV PRN ×4 (15:30→18:50)
[2018-06-19 19:10] VITALS: BP_SYST 92; BP_DIAS 55; BP_DIAS 60
[2018-06-19] MEDS: INSULIN GLARGINE 100 UNITS/ML, PEN SQ-INSULIN SCH (21:35)
[2018-06-20] VITALS (7 sets, daily range): BP systolic 86–100; BP diastolic 45–64
[2018-06-20 07:28] LABS: ALBUMIN 2.7 g/dL (3.4-5.0); ANION GAP 10 mmol/L (5-15); CALCIUM 7.9 mg/dL (8.5-10.1); CHLORIDE 106 mmol/L (98-107); CREATININE 4.79 mg/dL (0.7-1.3)
[2018-06-20 07:47] LABS: MEAN CORPUSCULAR HEMOGLOBIN 33.6 pg (27.5-34.5); MEAN CORPUSCULAR HGB CONC 32.9 g/dL (33.2-36.2); MEAN CORPUSCULAR VOLUME 102.4 fL (81-97); RED BLOOD COUNT 1.99 x10^6/uL (4.38-5.82); RED CELL DISTRIBUTION WIDTH 24.9 % (9.4-14.8)
[2018-06-20 07:51] LABS: PLATELET COUNT 24 x10^3/uL (130-400)
[2018-06-20 07:53] LABS: MD YES
[2018-06-20 07:57] LABS: LYMPHS% (MANUAL) 29 % (22-44); MONOS#(MANUAL) 0.05 x10^3/uL (0.3-2.7); MONOS% (MANUAL) 2 % (2-9); SEG#(MANUAL) 1.66 x10^3/uL (1.8-6.8); SEGS% (MANUAL) 69 % (42-75)
[2018-06-20 07:58] LABS: ANISOCYTOSIS 1+; OVALOCYTES 1+; POLYCHROMASIA 1+
[2018-06-20 07:59] LABS: <PLATELET ESTIMATE> DECREASED; <PLT MORPHOLOGY> NORMAL PLT MORPH
[2018-06-20] MEDS: TEMPLATE NON-FORMULARY MED. (Lanthanum Carbonate** (Fosrenol**) 1,000 MG) HOMEMEDPO SCH (08:00)
[2018-06-20] MEDS: LACTULOSE 10 GM/15 ML UDC PO SCH (09:00)
[2018-06-20] MEDS: FLUDROCORTISONE 0.1 MG TABLET PO SCH (09:28)
[2018-06-20] MEDS: MIDODRINE 5 MG TABLET PO SCH (09:28)
[2018-06-20] MEDS: FOLIC ACID 1 MG TABLET PO SCH (09:28)
[2018-06-20] MEDS: SODIUM CHLORIDE FLUSH 10ML SYR IVF SCH (09:28)
[2018-06-20] MEDS: RIFAXIMIN 550 MG TABLET PO SCH (09:28)
[2018-06-20] MEDS: PANTOPROZOLE 40MG TABLET PO SCH (09:28)
[2018-06-20] MEDS ORDERED: CEPH-368 PO (12:02)
== END 2018-06-20 13:40 | disposition home or self-care (01) | DRG 314 ==
LOC: ED 17:52 → EDIP 18:58 → 4EST 20:01
PROVIDERS: ADMIT Hospitalist; ATTEND Hospitalist
PROC: 5A1D70Z Performance of Urinary Filtration, Intermittent, Less than 6 Hours Per Day (ICD-10-PCS; 2018-06-10)
PROC: 30233N1 Transfusion of Nonautologous Red Blood Cells into Peripheral Vein, Percutaneous Approach (ICD-10-PCS; 2018-06-11)
PROC: 5A1D70Z Performance of Urinary Filtration, Intermittent, Less than 6 Hours Per Day (ICD-10-PCS; 2018-06-12)
PROC: 02HV33Z Insertion of Infusion Device into Superior Vena Cava, Percutaneous Approach (ICD-10-PCS; principal; 2018-06-14)
PROC: B548ZZA Ultrasonography of Superior Vena Cava, Guidance (ICD-10-PCS; 2018-06-14)
PROC: B5181ZA Fluoroscopy of Superior Vena Cava using Low Osmolar Contrast, Guidance (ICD-10-PCS; 2018-06-14)
PROC: 5A1D70Z Performance of Urinary Filtration, Intermittent, Less than 6 Hours Per Day (ICD-10-PCS; 2018-06-15)
PROC: 5A1D70Z Performance of Urinary Filtration, Intermittent, Less than 6 Hours Per Day (ICD-10-PCS; 2018-06-17)
PROC: 5A1D70Z Performance of Urinary Filtration, Intermittent, Less than 6 Hours Per Day (ICD-10-PCS; 2018-06-19)
DX: I95.89 Other hypotension (principal); K55.21 Angiodysplasia of colon with hemorrhage; N18.6 End stage renal disease; I81 Portal vein thrombosis; E43 Unspecified severe protein-calorie malnutrition; K63.81 Dieulafoy lesion of intestine; I12.0 Hypertensive chronic kidney disease with stage 5 chronic kidney disease or end stage renal disease; E27.40 Unspecified adrenocortical insufficiency; L03.115 Cellulitis of right lower limb; Z68.43 Body mass index [BMI] 50.0-59.9, adult; N25.0 Renal osteodystrophy; E66.01 Morbid (severe) obesity due to excess calories; E11.22 Type 2 diabetes mellitus with diabetic chronic kidney disease; D69.6 Thrombocytopenia, unspecified; D63.1 Anemia in chronic kidney disease; Z87.11 Personal history of peptic ulcer disease; Z99.2 Dependence on renal dialysis; W18.39XA Other fall on same level, initial encounter; Y93.89 Activity, other specified; Y92.89 Other specified places as the place of occurrence of the external cause; Y99.8 Other external cause status; Z66 Do not resuscitate; K74.60 Unspecified cirrhosis of liver; K75.81 Nonalcoholic steatohepatitis (NASH); E87.6 Hypokalemia; S80.11XA Contusion of right lower leg, initial encounter; Z88.1 Allergy status to other antibiotic agents; Z51.5 Encounter for palliative care; Z90.49 Acquired absence of other specified parts of digestive tract; D50.0 Iron deficiency anemia secondary to blood loss (chronic)
CPT/HCPCS: 36415; 36569; 70450; 71045; 76937; 77001; 80048; 80053; 82040; 82962; 83735; 84100; 85014; 85018; 85025; 86850; 86900; 86923; 99285; G0378; J0690; J0881; P9047; C1751; P9016

== ENCOUNTER 2018-06-21 01:39 | Inpatient (IN) | payer MEDICAID ==
[~2018-06-21] VITALS: Ht 175.3 cm; Wt 97.2 kg
[2018-06-21 01:10] VITALS: BP 102/50
[~2018-06-21 01:39] MED LIST changes: -MIDO5TAB PO; +MIDO5TAB9 PO; +POLY17PO29 PO; -POLY17PO3 PO; -PROP10TA PO; +PROP10TA16 PO
[2018-06-21] MEDS: CEPHALEXIN 500 MG CAPSULE PO SCH ×4 (05:30→21:36)
[2018-06-21] MEDS ORDERED: DOCUSATE 100 MG CAPSULE PO PRN (05:30)
[2018-06-21] MEDS ORDERED: POLYETHYLENE GLYCOL 17 GM PACKET PO PRN (05:30)
[2018-06-21] MEDS ORDERED: DEXTROSE 50%, 50ML SYRINGE IVPush PRN (05:30)
[2018-06-21] MEDS ORDERED: GLUCAGON 1 MG IM PRN (05:30)
[2018-06-21] MEDS ORDERED: DEXTROSE 4 GM TAB.CHEW PO PRN (05:30)
[2018-06-21] MEDS: LACTULOSE 10 GM/15 ML UDC PO SCH ×4 (05:30→21:00)
[2018-06-21] MEDS: SODIUM CHLORIDE 0.9% 1,000 ML IV SCH ×2 (05:56→18:11)
[2018-06-21 06:32] LABS: ANION GAP 9 mmol/L (5-15); CHLORIDE 108 mmol/L (98-107); CREATININE 5.98 mg/dL (0.7-1.3)
[2018-06-21 07:19] VITALS: BP 93/49
[2018-06-21] MEDS: INSULIN LISPRO 100 UNITS/ML, PEN SQ-INSULIN SCH ×4 (08:09→21:00)
[2018-06-21] MEDS: TEMPLATE NON-FORMULARY MED. (Lanthanum Carbonate** (Fosrenol**) 1,000 MG) HOMEMEDPO SCH ×3 (08:10→18:12)
[2018-06-21] MEDS: SODIUM CHLORIDE FLUSH 10ML SYR IVF SCH ×2 (08:16→21:37)
[2018-06-21] MEDS: MIDODRINE 5 MG TABLET PO SCH ×3 (08:17→21:36)
[2018-06-21] MEDS: FOLIC ACID 1 MG TABLET PO SCH (08:17)
[2018-06-21] MEDS: RIFAXIMIN 550 MG TABLET PO SCH ×2 (08:17→21:37)
[2018-06-21] MEDS: FLUDROCORTISONE 0.1 MG TABLET PO SCH (08:18)
[2018-06-21] MEDS: PANTOPROZOLE 40MG TABLET PO SCH ×2 (08:19→21:37)
[2018-06-21 12:40] VITALS: BP 79/71
[2018-06-21 12:50] VITALS: BP 84/46
[2018-06-21 19:03] VITALS: BP 94/49
[2018-06-21] MEDS: INSULIN GLARGINE 100 UNITS/ML, PEN SQ-INSULIN SCH (22:38)
[2018-06-22 01:45] VITALS: BP 93/53
[2018-06-22 05:52] LABS: ALBUMIN 2.5 g/dL (3.4-5.0); ANION GAP 11 mmol/L (5-15); CHLORIDE 107 mmol/L (98-107); CREATININE 6.91 mg/dL (0.7-1.3)
[2018-06-22 05:57] LABS: ALBUMIN 2.6 g/dL (3.4-5.0); ANION GAP 10 mmol/L (5-15); CALCIUM 8.2 mg/dL (8.5-10.1); CHLORIDE 108 mmol/L (98-107); CREATININE 6.86 mg/dL (0.7-1.3)
[2018-06-22 06:05] LABS: MEAN CORPUSCULAR HEMOGLOBIN 34.7 pg (27.5-34.5); MEAN CORPUSCULAR HGB CONC 33.5 g/dL (33.2-36.2); MEAN CORPUSCULAR VOLUME 103.6 fL (81-97); MEAN PLATELET VOLUME 9.7 fL (7.4-10.4); RED BLOOD COUNT 2.21 x10^6/uL (4.38-5.82); RED CELL DISTRIBUTION WIDTH 24.7 % (9.4-14.8)
[2018-06-22 06:18] LABS: PLATELET COUNT 32 x10^3/uL (130-400)
[2018-06-22 06:38] LABS: BASOPHILS # (AUTO) 0.01 x10^3/uL (0-0.1); BASOPHILS % (AUTO) 1 % (0-1); EOSINOPHILS # (AUTO) 0.08 x10^3/uL (0-0.4); EOSINOPHILS % (AUTO) 3 % (1-7); LYMPHOCYTES # (AUTO) 0.86 x10^3/uL (1-3.4); LYMPHOCYTES % (AUTO) 30 % (22-44); MD MORPH REVIEW ONLY; MONOCYTES # (AUTO) 0.27 x10^3/uL (0.2-0.8); MONOCYTES % (AUTO) 10 % (2-9); NEUTROPHILS # (AUTO) 1.64 x10^3/uL (1.8-6.8); NEUTROPHILS % (AUTO) 57 % (42-75)
[2018-06-22 06:39] LABS: ANISOCYTOSIS 1+; OVALOCYTES 1+; POLYCHROMASIA 1+
[2018-06-22 06:40] LABS: <PLATELET ESTIMATE> DECREASED; LARGE PLATELETS 1+
[2018-06-22 07:11] VITALS: BP 92/54
[2018-06-22] MEDS: LACTULOSE 10 GM/15 ML UDC PO SCH ×4 (08:46→21:00)
[2018-06-22] MEDS: INSULIN LISPRO 100 UNITS/ML, PEN SQ-INSULIN SCH ×4 (08:46→21:00)
[2018-06-22] MEDS: SODIUM CHLORIDE 0.9% 1,000 ML IV SCH ×2 (08:47→21:00)
[2018-06-22] MEDS: TEMPLATE NON-FORMULARY MED. (Lanthanum Carbonate** (Fosrenol**) 1,000 MG) HOMEMEDPO SCH ×3 (08:47→17:03)
[2018-06-22] MEDS: FOLIC ACID 1 MG TABLET PO SCH (08:48)
[2018-06-22] MEDS: FLUDROCORTISONE 0.1 MG TABLET PO SCH (08:48)
[2018-06-22] MEDS: RIFAXIMIN 550 MG TABLET PO SCH ×2 (08:48→20:59)
[2018-06-22] MEDS: PANTOPROZOLE 40MG TABLET PO SCH ×2 (08:48→20:59)
[2018-06-22] MEDS: MIDODRINE 5 MG TABLET PO SCH ×3 (08:48→20:59)
[2018-06-22] MEDS: CEPHALEXIN 500 MG CAPSULE PO SCH ×3 (08:48→20:59)
[2018-06-22] MEDS: SODIUM CHLORIDE FLUSH 10ML SYR IVF SCH ×2 (08:49→21:00)
[2018-06-22 12:27] VITALS: BP 95/46
[2018-06-22] MEDS: ALBUMIN HUMAN 25% 100 ML IV PRN (14:00)
[2018-06-22 18:58] VITALS: BP 81/46
[2018-06-22] MEDS: INSULIN GLARGINE 100 UNITS/ML, PEN SQ-INSULIN SCH (21:00)
[2018-06-22 22:00] VITALS: BP 90/51
[2018-06-23 01:54] VITALS: BP 88/43
[2018-06-23 04:47] LABS: MEAN CORPUSCULAR HEMOGLOBIN 34.7 pg (27.5-34.5); MEAN CORPUSCULAR HGB CONC 33.7 g/dL (33.2-36.2); MEAN CORPUSCULAR VOLUME 103.1 fL (81-97); RED BLOOD COUNT 2.08 x10^6/uL (4.38-5.82); RED CELL DISTRIBUTION WIDTH 24.2 % (9.4-14.8)
[2018-06-23 04:54] LABS: PLATELET COUNT 30 x10^3/uL (130-400)
[2018-06-23 04:56] LABS: ALBUMIN 2.5 g/dL (3.4-5.0); ANION GAP 10 mmol/L (5-15); CALCIUM 7.7 mg/dL (8.5-10.1); CHLORIDE 101 mmol/L (98-107)
[2018-06-23 04:58] LABS: CREATININE 4.85 mg/dL (0.7-1.3)
[2018-06-23 05:04] LABS: BASOPHILS # (AUTO) 0.02 x10^3/uL (0-0.1); BASOPHILS % (AUTO) 1 % (0-1); EOSINOPHILS # (AUTO) 0.07 x10^3/uL (0-0.4); EOSINOPHILS % (AUTO) 3 % (1-7); LYMPHOCYTES # (AUTO) 0.94 x10^3/uL (1-3.4); LYMPHOCYTES % (AUTO) 36 % (22-44); MD SCAN; MONOCYTES # (AUTO) 0.31 x10^3/uL (0.2-0.8); MONOCYTES % (AUTO) 12 % (2-9); NEUTROPHILS # (AUTO) 1.32 x10^3/uL (1.8-6.8); NEUTROPHILS % (AUTO) 50 % (42-75)
[2018-06-23 06:55] VITALS: BP 85/45
[2018-06-23] MEDS: INSULIN LISPRO 100 UNITS/ML, PEN SQ-INSULIN SCH ×4 (07:00→20:47)
[2018-06-23] MEDS: TEMPLATE NON-FORMULARY MED. (Lanthanum Carbonate** (Fosrenol**) 1,000 MG) HOMEMEDPO SCH ×3 (08:00→16:16)
[2018-06-23] MEDS: LACTULOSE 10 GM/15 ML UDC PO SCH ×3 (09:00→20:53)
[2018-06-23] MEDS: FOLIC ACID 1 MG TABLET PO SCH (09:50)
[2018-06-23] MEDS: SODIUM CHLORIDE FLUSH 10ML SYR IVF SCH ×2 (09:50→20:51)
[2018-06-23] MEDS: CEPHALEXIN 500 MG CAPSULE PO SCH ×3 (09:50→20:51)
[2018-06-23] MEDS: PANTOPROZOLE 40MG TABLET PO SCH ×2 (09:50→20:51)
[2018-06-23] MEDS: MIDODRINE 5 MG TABLET PO SCH ×3 (09:50→20:51)
[2018-06-23] MEDS: RIFAXIMIN 550 MG TABLET PO SCH ×2 (09:50→20:51)
[2018-06-23] MEDS: FLUDROCORTISONE 0.1 MG TABLET PO SCH (09:50)
[2018-06-23] MEDS: SODIUM CHLORIDE 0.9% 1,000 ML IV SCH ×2 (09:55→23:49)
[2018-06-23 12:40] VITALS: BP 93/50
[2018-06-23 19:57] VITALS: BP 92/55
[2018-06-23] MEDS: INSULIN GLARGINE 100 UNITS/ML, PEN SQ-INSULIN SCH (20:47)
[2018-06-24 01:58] VITALS: BP 88/48
[2018-06-24 05:28] LABS: MEAN CORPUSCULAR HGB CONC 34.1 g/dL (33.2-36.2); MEAN CORPUSCULAR VOLUME 102.6 fL (81-97); RED BLOOD COUNT 2.08 x10^6/uL (4.38-5.82); RED CELL DISTRIBUTION WIDTH 23.9 % (9.4-14.8)
[2018-06-24 05:32] LABS: ALBUMIN 2.5 g/dL (3.4-5.0); ANION GAP 10 mmol/L (5-15); CALCIUM 7.9 mg/dL (8.5-10.1); CHLORIDE 103 mmol/L (98-107); CREATININE 5.99 mg/dL (0.7-1.3)
[2018-06-24 05:49] LABS: BASOPHILS # (AUTO) 0.02 x10^3/uL (0-0.1); BASOPHILS % (AUTO) 1 % (0-1); EOSINOPHILS # (AUTO) 0.07 x10^3/uL (0-0.4); EOSINOPHILS % (AUTO) 3 % (1-7); LYMPHOCYTES # (AUTO) 0.93 x10^3/uL (1-3.4); LYMPHOCYTES % (AUTO) 36 % (22-44); MD SCAN; MONOCYTES # (AUTO) 0.32 x10^3/uL (0.2-0.8); MONOCYTES % (AUTO) 12 % (2-9); NEUTROPHILS # (AUTO) 1.26 x10^3/uL (1.8-6.8); NEUTROPHILS % (AUTO) 49 % (42-75)
[2018-06-24 06:49] VITALS: BP 84/51
[2018-06-24 06:59] LABS: PLATELET COUNT 38 x10^3/uL (130-400)
[2018-06-24] MEDS: INSULIN LISPRO 100 UNITS/ML, PEN SQ-INSULIN SCH ×4 (07:00→20:15)
[2018-06-24] MEDS: TEMPLATE NON-FORMULARY MED. (Lanthanum Carbonate** (Fosrenol**) 1,000 MG) HOMEMEDPO SCH ×3 (08:00→17:00)
[2018-06-24] MEDS: LACTULOSE 10 GM/15 ML UDC PO SCH ×3 (08:50→20:15)
[2018-06-24] MEDS: RIFAXIMIN 550 MG TABLET PO SCH ×2 (08:50→20:14)
[2018-06-24] MEDS: FOLIC ACID 1 MG TABLET PO SCH (08:50)
[2018-06-24] MEDS: MIDODRINE 5 MG TABLET PO SCH ×3 (08:50→20:14)
[2018-06-24] MEDS: PANTOPROZOLE 40MG TABLET PO SCH ×2 (08:51→20:14)
[2018-06-24] MEDS: CEPHALEXIN 500 MG CAPSULE PO SCH ×3 (08:51→20:14)
[2018-06-24] MEDS: SODIUM CHLORIDE FLUSH 10ML SYR IVF SCH ×2 (08:51→20:15)
[2018-06-24] MEDS: FLUDROCORTISONE 0.1 MG TABLET PO SCH (08:51)
[2018-06-24 14:00] VITALS: BP 88/48
[2018-06-24] MEDS: SODIUM CHLORIDE 0.9% 1,000 ML IV SCH (16:00)
[2018-06-24 18:45] VITALS: BP 93/55
[2018-06-24] MEDS: INSULIN GLARGINE 100 UNITS/ML, PEN SQ-INSULIN SCH (20:16)
[2018-06-25] VITALS (11 sets, daily range): BP systolic 75–95; BP diastolic 32–59
[2018-06-25 05:55] LABS: MEAN CORPUSCULAR HEMOGLOBIN 34.8 pg (27.5-34.5); MEAN CORPUSCULAR HGB CONC 33.7 g/dL (33.2-36.2); MEAN CORPUSCULAR VOLUME 103.1 fL (81-97); RED BLOOD COUNT 1.91 x10^6/uL (4.38-5.82); RED CELL DISTRIBUTION WIDTH 24.6 % (9.4-14.8)
[2018-06-25 05:56] LABS: ALBUMIN 2.7 g/dL (3.4-5.0); ANION GAP 10 mmol/L (5-15); CHLORIDE 102 mmol/L (98-107)
[2018-06-25 06:11] LABS: MEAN PLATELET VOLUME 8.8 fL (7.4-10.4)
[2018-06-25 06:14] LABS: PLATELET COUNT 27 x10^3/uL (130-400)
[2018-06-25 06:16] LABS: BASOPHILS # (AUTO) 0.01 x10^3/uL (0-0.1); BASOPHILS % (AUTO) 0 % (0-1); EOSINOPHILS # (AUTO) 0.04 x10^3/uL (0-0.4); EOSINOPHILS % (AUTO) 2 % (1-7); LYMPHOCYTES # (AUTO) 0.76 x10^3/uL (1-3.4); LYMPHOCYTES % (AUTO) 34 % (22-44); MD SCAN; MONOCYTES # (AUTO) 0.28 x10^3/uL (0.2-0.8); MONOCYTES % (AUTO) 13 % (2-9); NEUTROPHILS # (AUTO) 1.15 x10^3/uL (1.8-6.8); NEUTROPHILS % (AUTO) 52 % (42-75)
[2018-06-25] MEDS: INSULIN LISPRO 100 UNITS/ML, PEN SQ-INSULIN SCH ×4 (07:00→21:16)
[2018-06-25] MEDS ORDERED: PHARMACY MAY ADJ FOR RENAL FX MC PRN (07:00)
[2018-06-25] MEDS ORDERED: CEFAZOLIN PMX 2GM/50ML 50 ML IV SCH (07:00)
[2018-06-25] MEDS: TEMPLATE NON-FORMULARY MED. (Lanthanum Carbonate** (Fosrenol**) 1,000 MG) HOMEMEDPO SCH ×3 (08:00→17:00)
[2018-06-25] MEDS: SODIUM CHLORIDE FLUSH 10ML SYR IVF SCH ×2 (08:32→21:07)
[2018-06-25] MEDS: FLUDROCORTISONE 0.1 MG TABLET PO SCH (08:33)
[2018-06-25] MEDS: MIDODRINE 5 MG TABLET PO SCH ×3 (08:33→21:06)
[2018-06-25] MEDS: PANTOPROZOLE 40MG TABLET PO SCH ×2 (08:33→21:06)
[2018-06-25] MEDS: FOLIC ACID 1 MG TABLET PO SCH (08:34)
[2018-06-25] MEDS: LACTULOSE 10 GM/15 ML UDC PO SCH ×3 (08:34→21:16)
[2018-06-25] MEDS: RIFAXIMIN 550 MG TABLET PO SCH ×2 (08:34→21:06)
[2018-06-25] MEDS ORDERED: CEFAZOLIN 2,000 MG in SODIUM CHLORIDE 0.9% 50 ML IVPB SCH (15:00)
[2018-06-25] MEDS ORDERED: SODIUM CHLORIDE 0.9%, 500ML IVBOLUS ONE (21:00)
[2018-06-25] MEDS: INSULIN GLARGINE 100 UNITS/ML, PEN SQ-INSULIN SCH (21:17)
[2018-06-26 00:08] VITALS: BP 83/42
[2018-06-26 03:50] VITALS: BP 81/43
[2018-06-26] MEDS: INSULIN LISPRO 100 UNITS/ML, PEN SQ-INSULIN SCH ×4 (07:00→20:56)
[2018-06-26 07:20] VITALS: BP 84/46
[2018-06-26] MEDS: TEMPLATE NON-FORMULARY MED. (Lanthanum Carbonate** (Fosrenol**) 1,000 MG) HOMEMEDPO SCH ×3 (08:00→17:00)
[2018-06-26] MEDS: MIDODRINE 5 MG TABLET PO SCH ×3 (08:15→20:57)
[2018-06-26] MEDS: SODIUM CHLORIDE FLUSH 10ML SYR IVF SCH ×2 (08:15→20:57)
[2018-06-26] MEDS: FLUDROCORTISONE 0.1 MG TABLET PO SCH (08:16)
[2018-06-26] MEDS: LACTULOSE 10 GM/15 ML UDC PO SCH ×3 (08:16→20:56)
[2018-06-26] MEDS: FOLIC ACID 1 MG TABLET PO SCH (08:16)
[2018-06-26] MEDS: PANTOPROZOLE 40MG TABLET PO SCH ×2 (08:16→20:57)
[2018-06-26] MEDS: RIFAXIMIN 550 MG TABLET PO SCH ×2 (08:16→20:57)
[2018-06-26 08:18] LABS: ALBUMIN 2.6 g/dL (3.4-5.0); ANION GAP 13 mmol/L (5-15); CALCIUM 8.2 mg/dL (8.5-10.1); CHLORIDE 103 mmol/L (98-107); CREATININE 6.89 mg/dL (0.7-1.3)
[2018-06-26 08:21] LABS: MEAN CORPUSCULAR HEMOGLOBIN 34.3 pg (27.5-34.5); MEAN CORPUSCULAR VOLUME 100.7 fL (81-97); RED BLOOD COUNT 2.21 x10^6/uL (4.38-5.82); RED CELL DISTRIBUTION WIDTH 25.8 % (9.4-14.8)
[2018-06-26 08:30] LABS: MEAN PLATELET VOLUME 10.7 fL (7.4-10.4)
[2018-06-26 08:32] LABS: PLATELET COUNT 14 x10^3/uL (130-400)
[2018-06-26 08:36] LABS: BASOPHILS # (AUTO) 0.03 x10^3/uL (0-0.1); BASOPHILS % (AUTO) 1 % (0-1); EOSINOPHILS # (AUTO) 0.03 x10^3/uL (0-0.4); EOSINOPHILS % (AUTO) 1 % (1-7); LYMPHOCYTES # (AUTO) 0.83 x10^3/uL (1-3.4); LYMPHOCYTES % (AUTO) 34 % (22-44); MD SCAN; MONOCYTES # (AUTO) 0.28 x10^3/uL (0.2-0.8); MONOCYTES % (AUTO) 12 % (2-9); NEUTROPHILS # (AUTO) 1.25 x10^3/uL (1.8-6.8); NEUTROPHILS % (AUTO) 52 % (42-75)
[2018-06-26 08:46] LABS: MICROSCOPIC INDICATED
[2018-06-26 14:00] VITALS: BP 90/52
[2018-06-26] MEDS ORDERED: CEFAZOLIN 2,000 MG in SODIUM CHLORIDE 0.9% 50 ML IVPB SCH (15:00)
[2018-06-26 19:59] VITALS: BP 87/51
[2018-06-26] MEDS: INSULIN GLARGINE 100 UNITS/ML, PEN SQ-INSULIN SCH (20:59)
[2018-06-27 01:05] VITALS: BP 89/43
[2018-06-27 04:52] LABS: ALBUMIN 3.1 g/dL (3.4-5.0); ANION GAP 11 mmol/L (5-15); CALCIUM 8.1 mg/dL (8.5-10.1); CHLORIDE 102 mmol/L (98-107)
[2018-06-27 04:54] LABS: CREATININE 5.13 mg/dL (0.7-1.3)
[2018-06-27 04:56] LABS: MEAN CORPUSCULAR HEMOGLOBIN 34.8 pg (27.5-34.5); MEAN CORPUSCULAR HGB CONC 34.6 g/dL (33.2-36.2); MEAN CORPUSCULAR VOLUME 100.5 fL (81-97); MEAN PLATELET VOLUME 9.1 fL (7.4-10.4); RED BLOOD COUNT 2.04 x10^6/uL (4.38-5.82); RED CELL DISTRIBUTION WIDTH 25.9 % (9.4-14.8)
[2018-06-27 05:14] LABS: PLATELET COUNT 28 x10^3/uL (130-400)
[2018-06-27 05:28] LABS: BASOPHILS # (AUTO) 0.02 x10^3/uL (0-0.1); BASOPHILS % (AUTO) 1 % (0-1); EOSINOPHILS # (AUTO) 0.06 x10^3/uL (0-0.4); EOSINOPHILS % (AUTO) 3 % (1-7); LYMPHOCYTES % (AUTO) 39 % (22-44); MD SCAN; MONOCYTES # (AUTO) 0.26 x10^3/uL (0.2-0.8); MONOCYTES % (AUTO) 13 % (2-9); NEUTROPHILS # (AUTO) 0.92 x10^3/uL (1.8-6.8); NEUTROPHILS % (AUTO) 45 % (42-75)
[2018-06-27] MEDS: INSULIN LISPRO 100 UNITS/ML, PEN SQ-INSULIN SCH ×4 (07:00→20:50)
[2018-06-27 07:20] VITALS: BP 74/33
[2018-06-27] MEDS: TEMPLATE NON-FORMULARY MED. (Lanthanum Carbonate** (Fosrenol**) 1,000 MG) HOMEMEDPO SCH ×3 (08:00→16:57)
[2018-06-27] MEDS: LACTULOSE 10 GM/15 ML UDC PO SCH ×3 (09:00→20:51)
[2018-06-27] MEDS: SODIUM CHLORIDE FLUSH 10ML SYR IVF SCH ×2 (09:00→20:51)
[2018-06-27] MEDS: FOLIC ACID 1 MG TABLET PO SCH (09:00)
[2018-06-27] MEDS: MIDODRINE 5 MG TABLET PO SCH ×3 (09:37→20:50)
[2018-06-27] MEDS: RIFAXIMIN 550 MG TABLET PO SCH ×2 (09:37→20:50)
[2018-06-27] MEDS: FLUDROCORTISONE 0.1 MG TABLET PO SCH (09:37)
[2018-06-27] MEDS: PANTOPROZOLE 40MG TABLET PO SCH ×2 (09:38→20:50)
[2018-06-27 09:49] VITALS: BP 80/43
[2018-06-27 14:00] VITALS: BP 89/47
[2018-06-27 19:59] VITALS: BP 83/38
[2018-06-27] MEDS: INSULIN GLARGINE 100 UNITS/ML, PEN SQ-INSULIN SCH (20:51)
[2018-06-28 02:16] VITALS: BP 88/49
[2018-06-28 05:36] LABS: ALBUMIN 2.9 g/dL (3.4-5.0); ANION GAP 10 mmol/L (5-15); CALCIUM 8.1 mg/dL (8.5-10.1); CHLORIDE 102 mmol/L (98-107); CREATININE 6.83 mg/dL (0.7-1.3)
[2018-06-28 05:40] LABS: MEAN CORPUSCULAR HEMOGLOBIN 34.6 pg (27.5-34.5); MEAN CORPUSCULAR HGB CONC 34.4 g/dL (33.2-36.2); MEAN CORPUSCULAR VOLUME 100.6 fL (81-97); MEAN PLATELET VOLUME 8.7 fL (7.4-10.4); RED BLOOD COUNT 2.11 x10^6/uL (4.38-5.82)
[2018-06-28 05:41] LABS: PLATELET COUNT 34 x10^3/uL (130-400); RED CELL DISTRIBUTION WIDTH 25.8 % (9.4-14.8)
[2018-06-28 06:38] LABS: BASOPHILS # (AUTO) 0.01 x10^3/uL (0-0.1); BASOPHILS % (AUTO) 0 % (0-1); EOSINOPHILS # (AUTO) 0.06 x10^3/uL (0-0.4); EOSINOPHILS % (AUTO) 2 % (1-7); LYMPHOCYTES % (AUTO) 31 % (22-44); MD SCAN; MONOCYTES # (AUTO) 0.31 x10^3/uL (0.2-0.8); MONOCYTES % (AUTO) 12 % (2-9); NEUTROPHILS # (AUTO) 1.37 x10^3/uL (1.8-6.8); NEUTROPHILS % (AUTO) 54 % (42-75)
[2018-06-28] MEDS: INSULIN LISPRO 100 UNITS/ML, PEN SQ-INSULIN SCH ×4 (07:00→21:37)
[2018-06-28 07:05] VITALS: BP 83/44
[2018-06-28] MEDS: TEMPLATE NON-FORMULARY MED. (Lanthanum Carbonate** (Fosrenol**) 1,000 MG) HOMEMEDPO SCH ×3 (08:00→17:00)
[2018-06-28] MEDS: FOLIC ACID 1 MG TABLET PO SCH (09:00)
[2018-06-28] MEDS: SODIUM CHLORIDE FLUSH 10ML SYR IVF SCH ×2 (09:44→22:06)
[2018-06-28] MEDS: MIDODRINE 5 MG TABLET PO SCH ×3 (09:45→22:06)
[2018-06-28] MEDS: FLUDROCORTISONE 0.1 MG TABLET PO SCH (09:45)
[2018-06-28] MEDS: RIFAXIMIN 550 MG TABLET PO SCH ×2 (09:46→22:06)
[2018-06-28] MEDS: PANTOPROZOLE 40MG TABLET PO SCH ×2 (09:46→22:06)
[2018-06-28] MEDS: LACTULOSE 10 GM/15 ML UDC PO SCH ×3 (09:46→21:00)
[2018-06-28 13:58] VITALS: BP 79/36
[2018-06-28 19:22] VITALS: BP 87/45
[2018-06-28] MEDS: INSULIN GLARGINE 100 UNITS/ML, PEN SQ-INSULIN SCH (22:09)
[2018-06-29 01:56] VITALS: BP 79/44
[2018-06-29] MEDS: INSULIN LISPRO 100 UNITS/ML, PEN SQ-INSULIN SCH ×4 (07:00→21:00)
[2018-06-29 07:14] VITALS: BP 94/55
[2018-06-29] MEDS: TEMPLATE NON-FORMULARY MED. (Lanthanum Carbonate** (Fosrenol**) 1,000 MG) HOMEMEDPO SCH ×3 (08:00→22:45)
[2018-06-29] MEDS: RIFAXIMIN 550 MG TABLET PO SCH ×2 (09:00→22:41)
[2018-06-29] MEDS: LACTULOSE 10 GM/15 ML UDC PO SCH ×3 (09:00→22:42)
[2018-06-29] MEDS: PANTOPROZOLE 40MG TABLET PO SCH ×2 (09:00→22:42)
[2018-06-29] MEDS: MIDODRINE 5 MG TABLET PO SCH ×3 (09:00→22:42)
[2018-06-29] MEDS: FLUDROCORTISONE 0.1 MG TABLET PO SCH (09:00)
[2018-06-29] MEDS: SODIUM CHLORIDE FLUSH 10ML SYR IVF SCH ×2 (09:00→22:43)
[2018-06-29] MEDS: FOLIC ACID 1 MG TABLET PO SCH (09:00)
[2018-06-29 12:11] VITALS: BP 91/54
[2018-06-29] MEDS: ALBUMIN HUMAN 25% 100 ML IV PRN ×4 (16:19→19:12)
[2018-06-29 18:17] LABS: ALBUMIN 3.6 g/dL (3.4-5.0); ANION GAP 12 mmol/L (5-15); CALCIUM 8.3 mg/dL (8.5-10.1); CHLORIDE 101 mmol/L (98-107); CREATININE 5.41 mg/dL (0.7-1.3)
[2018-06-29 18:33] LABS: BASOPHILS # (AUTO) 0.01 x10^3/uL (0-0.1); BASOPHILS % (AUTO) 1 % (0-1); EOSINOPHILS # (AUTO) 0.04 x10^3/uL (0-0.4); EOSINOPHILS % (AUTO) 2 % (1-7); LYMPHOCYTES # (AUTO) 0.56 x10^3/uL (1-3.4); LYMPHOCYTES % (AUTO) 24 % (22-44); MD MORPH REVIEW ONLY; MEAN CORPUSCULAR HEMOGLOBIN 35.1 pg (27.5-34.5); MEAN CORPUSCULAR HGB CONC 34.6 g/dL (33.2-36.2); MEAN CORPUSCULAR VOLUME 101.6 fL (81-97); MEAN PLATELET VOLUME 8.9 fL (7.4-10.4); MONOCYTES # (AUTO) 0.22 x10^3/uL (0.2-0.8); MONOCYTES % (AUTO) 10 % (2-9); NEUTROPHILS # (AUTO) 1.47 x10^3/uL (1.8-6.8); NEUTROPHILS % (AUTO) 64 % (42-75); RED BLOOD COUNT 2.01 x10^6/uL (4.38-5.82)
[2018-06-29 18:35] LABS: PLATELET COUNT 30 x10^3/uL (130-400)
[2018-06-29 18:36] LABS: ANISOCYTOSIS 2+; HYPOCHROMIA 1+; POLYCHROMASIA 1+; TARGET CELLS 1+
[2018-06-29 18:37] LABS: <PLATELET ESTIMATE> DECREASED; <PLT MORPHOLOGY> NORMAL PLT MORPH
[2018-06-29 22:27] VITALS: BP 82/38
[2018-06-29] MEDS: INSULIN GLARGINE 100 UNITS/ML, PEN SQ-INSULIN SCH (22:43)
[2018-06-30 01:38] VITALS: BP 88/45
[2018-06-30] MEDS: INSULIN LISPRO 100 UNITS/ML, PEN SQ-INSULIN SCH ×4 (07:00→21:40)
[2018-06-30 07:31] VITALS: BP 83/42
[2018-06-30 08:14] LABS: ALBUMIN 3.4 g/dL (3.4-5.0); ANION GAP 11 mmol/L (5-15); CALCIUM 8.3 mg/dL (8.5-10.1); CHLORIDE 102 mmol/L (98-107); CREATININE 5.71 mg/dL (0.7-1.3)
[2018-06-30 08:17] LABS: ALKALINE PHOSPHATASE 50 U/L (45-117); BILIRUBIN,TOTAL 2.4 mg/dL (0.2-1.0); TOTAL PROTEIN 5.4 g/dL (6.4-8.2)
[2018-06-30 08:30] LABS: ALANINE AMINOTRANSFERASE < 6 U/L (12-78)
[2018-06-30 08:31] LABS: BASOPHILS # (AUTO) 0.01 x10^3/uL (0-0.1); BASOPHILS % (AUTO) 0 % (0-1); EOSINOPHILS # (AUTO) 0.06 x10^3/uL (0-0.4); EOSINOPHILS % (AUTO) 3 % (1-7); LYMPHOCYTES # (AUTO) 0.67 x10^3/uL (1-3.4); LYMPHOCYTES % (AUTO) 31 % (22-44); MD SCAN; MEAN CORPUSCULAR HEMOGLOBIN 35.4 pg (27.5-34.5); MEAN CORPUSCULAR HGB CONC 34.8 g/dL (33.2-36.2); MEAN CORPUSCULAR VOLUME 101.8 fL (81-97); MEAN PLATELET VOLUME 8.5 fL (7.4-10.4); MONOCYTES # (AUTO) 0.26 x10^3/uL (0.2-0.8); MONOCYTES % (AUTO) 12 % (2-9); NEUTROPHILS # (AUTO) 1.16 x10^3/uL (1.8-6.8); NEUTROPHILS % (AUTO) 54 % (42-75); RED BLOOD COUNT 1.93 x10^6/uL (4.38-5.82); RED CELL DISTRIBUTION WIDTH 25.4 % (9.4-14.8)
[2018-06-30 08:32] LABS: PLATELET COUNT 30 x10^3/uL (130-400)
[2018-06-30] MEDS: TEMPLATE NON-FORMULARY MED. (Lanthanum Carbonate** (Fosrenol**) 1,000 MG) HOMEMEDPO SCH ×3 (08:53→16:37)
[2018-06-30] MEDS: LACTULOSE 10 GM/15 ML UDC PO SCH ×3 (08:54→22:00)
[2018-06-30] MEDS: PANTOPROZOLE 40MG TABLET PO SCH ×2 (08:54→22:00)
[2018-06-30] MEDS: FOLIC ACID 1 MG TABLET PO SCH (08:54)
[2018-06-30] MEDS: FLUDROCORTISONE 0.1 MG TABLET PO SCH (08:54)
[2018-06-30] MEDS: MIDODRINE 5 MG TABLET PO SCH ×3 (08:55→22:00)
[2018-06-30] MEDS: RIFAXIMIN 550 MG TABLET PO SCH ×2 (08:55→22:00)
[2018-06-30] MEDS: SODIUM CHLORIDE FLUSH 10ML SYR IVF SCH ×2 (08:56→22:01)
[2018-06-30 10:52] VITALS: BP 84/41
[2018-06-30 11:19] VITALS: BP 90/47
[2018-06-30 14:17] VITALS: BP 81/46
[2018-06-30 19:18] VITALS: BP 93/55
[2018-06-30] MEDS: INSULIN GLARGINE 100 UNITS/ML, PEN SQ-INSULIN SCH (22:00)
[2018-07-01 04:18] VITALS: BP 89/52
[2018-07-01 05:27] LABS: ALBUMIN 3.1 g/dL (3.4-5.0); ANION GAP 11 mmol/L (5-15); CALCIUM 8.1 mg/dL (8.5-10.1); CHLORIDE 103 mmol/L (98-107); CREATININE 7.23 mg/dL (0.7-1.3)
[2018-07-01 05:32] LABS: MEAN CORPUSCULAR HEMOGLOBIN 34.4 pg (27.5-34.5); MEAN CORPUSCULAR HGB CONC 34.1 g/dL (33.2-36.2); MEAN CORPUSCULAR VOLUME 100.9 fL (81-97); RED BLOOD COUNT 2.19 x10^6/uL (4.38-5.82)
[2018-07-01 06:23] LABS: BASOPHILS # (AUTO) 0.01 x10^3/uL (0-0.1); BASOPHILS % (AUTO) 0 % (0-1); EOSINOPHILS # (AUTO) 0.04 x10^3/uL (0-0.4); EOSINOPHILS % (AUTO) 1 % (1-7); LYMPHOCYTES # (AUTO) 0.93 x10^3/uL (1-3.4); LYMPHOCYTES % (AUTO) 27 % (22-44); MD SCAN; MEAN PLATELET VOLUME 9.3 fL (7.4-10.4); MONOCYTES # (AUTO) 0.36 x10^3/uL (0.2-0.8); MONOCYTES % (AUTO) 11 % (2-9); NEUTROPHILS # (AUTO) 2.06 x10^3/uL (1.8-6.8); NEUTROPHILS % (AUTO) 61 % (42-75)
[2018-07-01 06:27] LABS: PLATELET COUNT 36 x10^3/uL (130-400)
[2018-07-01] MEDS: INSULIN LISPRO 100 UNITS/ML, PEN SQ-INSULIN SCH ×4 (07:00→20:44)
[2018-07-01] MEDS: TEMPLATE NON-FORMULARY MED. (Lanthanum Carbonate** (Fosrenol**) 1,000 MG) HOMEMEDPO SCH (08:17)
[2018-07-01] MEDS: FLUDROCORTISONE 0.1 MG TABLET PO SCH (08:18)
[2018-07-01] MEDS: SODIUM CHLORIDE FLUSH 10ML SYR IVF SCH ×2 (08:18→20:43)
[2018-07-01] MEDS: FOLIC ACID 1 MG TABLET PO SCH (08:18)
[2018-07-01] MEDS: PANTOPROZOLE 40MG TABLET PO SCH ×2 (08:19→20:37)
[2018-07-01] MEDS: RIFAXIMIN 550 MG TABLET PO SCH ×2 (08:19→20:38)
[2018-07-01] MEDS: MIDODRINE 5 MG TABLET PO SCH ×3 (08:19→20:38)
[2018-07-01] MEDS: LACTULOSE 10 GM/15 ML UDC PO SCH ×3 (08:19→20:42)
[2018-07-01 08:49] VITALS: BP 79/38
[2018-07-01 13:09] VITALS: BP 87/54
[2018-07-01 18:47] VITALS: BP 90/55
[2018-07-01] MEDS: ALBUMIN HUMAN 25% 100 ML IV PRN ×3 (20:30→22:44)
[2018-07-01] MEDS: INSULIN GLARGINE 100 UNITS/ML, PEN SQ-INSULIN SCH (20:56)
[2018-07-02 03:06] VITALS: BP 87/42
[2018-07-02 06:00] LABS: ALBUMIN 3.4 g/dL (3.4-5.0); ANION GAP 10 mmol/L (5-15); CALCIUM 8.2 mg/dL (8.5-10.1); CHLORIDE 102 mmol/L (98-107); CREATININE 7.13 mg/dL (0.7-1.3)
[2018-07-02] MEDS: INSULIN LISPRO 100 UNITS/ML, PEN SQ-INSULIN SCH ×4 (07:00→20:42)
[2018-07-02 07:15] VITALS: BP 89/52
[2018-07-02] MEDS: SODIUM CHLORIDE FLUSH 10ML SYR IVF SCH ×2 (09:00→21:28)
[2018-07-02] MEDS: LACTULOSE 10 GM/15 ML UDC PO SCH ×3 (09:00→19:58)
[2018-07-02] MEDS: PANTOPROZOLE 40MG TABLET PO SCH ×2 (10:30→21:29)
[2018-07-02] MEDS: RIFAXIMIN 550 MG TABLET PO SCH ×2 (10:31→21:28)
[2018-07-02] MEDS: FLUDROCORTISONE 0.1 MG TABLET PO SCH (10:33)
[2018-07-02] MEDS: FOLIC ACID 1 MG TABLET PO SCH (10:35)
[2018-07-02] MEDS: MIDODRINE 5 MG TABLET PO SCH ×3 (10:37→21:29)
--- NOTE | 2018-07-02 11:50 | NUR ---
Green sheet posted and RN/pt informed. Activity includes up to chair at least 2x/day and ambulation with FWW 1x/day Addendum: 07/02/18 at 1151 by Rafa Neal PT Amended: Links added.
[2018-07-02 14:11] VITALS: BP 86/54
[2018-07-02 16:56] VITALS: BP 86/47
[2018-07-02 20:00] VITALS: BP 89/50
[2018-07-02] MEDS: INSULIN GLARGINE 100 UNITS/ML, PEN SQ-INSULIN SCH (21:00)
[2018-07-03 00:23] VITALS: BP 94/57
[2018-07-03 06:48] VITALS: BP 92/50
[2018-07-03] MEDS: INSULIN LISPRO 100 UNITS/ML, PEN SQ-INSULIN SCH ×4 (07:00→21:00)
[2018-07-03] MEDS: LACTULOSE 10 GM/15 ML UDC PO SCH ×3 (09:00→21:00)
[2018-07-03 11:38] VITALS: BP 81/42
[2018-07-03] MEDS: SODIUM CHLORIDE FLUSH 10ML SYR IVF SCH ×2 (11:40→21:11)
[2018-07-03] MEDS: MIDODRINE 5 MG TABLET PO SCH ×4 (11:40→21:17)
[2018-07-03] MEDS: FLUDROCORTISONE 0.1 MG TABLET PO SCH (11:41)
[2018-07-03] MEDS: FOLIC ACID 1 MG TABLET PO SCH (11:41)
[2018-07-03] MEDS: PANTOPROZOLE 40MG TABLET PO SCH ×2 (11:42→21:10)
[2018-07-03] MEDS: RIFAXIMIN 550 MG TABLET PO SCH ×2 (11:43→21:10)
[2018-07-03 13:15] VITALS: BP 92/47
[2018-07-03] MEDS: ALBUMIN HUMAN 25% 100 ML IV PRN ×3 (15:05→17:05)
[2018-07-03 15:43] LABS: ALBUMIN 3.2 g/dL (3.4-5.0); ANION GAP 12 mmol/L (5-15); CALCIUM 8.2 mg/dL (8.5-10.1); CHLORIDE 102 mmol/L (98-107)
[2018-07-03 15:47] LABS: ALKALINE PHOSPHATASE 56 U/L (45-117); BILIRUBIN,TOTAL 2.3 mg/dL (0.2-1.0); CREATININE 9.03 mg/dL (0.7-1.3); TOTAL PROTEIN 5.2 g/dL (6.4-8.2)
[2018-07-03 15:57] LABS: BASOPHILS # (AUTO) 0.01 x10^3/uL (0-0.1); BASOPHILS % (AUTO) 0 % (0-1); EOSINOPHILS # (AUTO) 0.06 x10^3/uL (0-0.4); EOSINOPHILS % (AUTO) 2 % (1-7); LYMPHOCYTES # (AUTO) 0.67 x10^3/uL (1-3.4); LYMPHOCYTES % (AUTO) 24 % (22-44); MD SCAN; MEAN CORPUSCULAR HEMOGLOBIN 33.6 pg (27.5-34.5); MEAN CORPUSCULAR HGB CONC 33.6 g/dL (33.2-36.2); MEAN CORPUSCULAR VOLUME 99.7 fL (81-97); MEAN PLATELET VOLUME 9.5 fL (7.4-10.4); MONOCYTES # (AUTO) 0.34 x10^3/uL (0.2-0.8); MONOCYTES % (AUTO) 13 % (2-9); NEUTROPHILS # (AUTO) 1.66 x10^3/uL (1.8-6.8); NEUTROPHILS % (AUTO) 61 % (42-75); RED BLOOD COUNT 2.08 x10^6/uL (4.38-5.82); RED CELL DISTRIBUTION WIDTH 26.6 % (9.4-14.8)
[2018-07-03 16:00] LABS: PLATELET COUNT 36 x10^3/uL (130-400)
[2018-07-03 16:01] LABS: ALANINE AMINOTRANSFERASE < 6 U/L (12-78)
[2018-07-03 19:21] VITALS: BP 78/34
[2018-07-03] MEDS: INSULIN GLARGINE 100 UNITS/ML, PEN SQ-INSULIN SCH (21:13)
[2018-07-04 01:01] VITALS: BP 85/46
[2018-07-04] MEDS: INSULIN LISPRO 100 UNITS/ML, PEN SQ-INSULIN SCH ×4 (07:00→20:17)
[2018-07-04 07:15] VITALS: BP 94/54
[2018-07-04] MEDS: LACTULOSE 10 GM/15 ML UDC PO SCH ×3 (09:00→20:15)
[2018-07-04] MEDS: SODIUM CHLORIDE FLUSH 10ML SYR IVF SCH ×2 (09:16→20:15)
[2018-07-04] MEDS: PANTOPROZOLE 40MG TABLET PO SCH ×2 (09:17→20:14)
[2018-07-04] MEDS: FOLIC ACID 1 MG TABLET PO SCH (09:17)
[2018-07-04] MEDS: FLUDROCORTISONE 0.1 MG TABLET PO SCH (09:17)
[2018-07-04] MEDS: MIDODRINE 5 MG TABLET PO SCH ×3 (09:17→20:17)
[2018-07-04] MEDS: RIFAXIMIN 550 MG TABLET PO SCH ×2 (09:17→20:14)
[2018-07-04 13:00] VITALS: BP 90/45
[2018-07-04 13:02] LABS: ALANINE AMINOTRANSFERASE 6 U/L (12-78); ALBUMIN 3.6 g/dL (3.4-5.0); ANION GAP 10 mmol/L (5-15); CALCIUM 8.2 mg/dL (8.5-10.1); CHLORIDE 98 mmol/L (98-107); CREATININE 6.42 mg/dL (0.7-1.3)
[2018-07-04 13:05] LABS: ALKALINE PHOSPHATASE 50 U/L (45-117); BILIRUBIN,TOTAL 2.9 mg/dL (0.2-1.0); TOTAL PROTEIN 5.7 g/dL (6.4-8.2)
[2018-07-04 13:30] LABS: MEAN CORPUSCULAR HEMOGLOBIN 33.8 pg (27.5-34.5); MEAN CORPUSCULAR HGB CONC 33.7 g/dL (33.2-36.2); MEAN CORPUSCULAR VOLUME 100.5 fL (81-97); MEAN PLATELET VOLUME 9.4 fL (7.4-10.4); RED BLOOD COUNT 2.07 x10^6/uL (4.38-5.82); RED CELL DISTRIBUTION WIDTH 26.6 % (9.4-14.8)
[2018-07-04 13:39] LABS: PLATELET COUNT 34 x10^3/uL (130-400)
[2018-07-04 14:47] LABS: BASOPHILS # (AUTO) 0.01 x10^3/uL (0-0.1); BASOPHILS % (AUTO) 0 % (0-1); EOSINOPHILS # (AUTO) 0.05 x10^3/uL (0-0.4); EOSINOPHILS % (AUTO) 2 % (1-7); LYMPHOCYTES # (AUTO) 0.65 x10^3/uL (1-3.4); LYMPHOCYTES % (AUTO) 29 % (22-44); MD SCAN; MONOCYTES # (AUTO) 0.27 x10^3/uL (0.2-0.8); MONOCYTES % (AUTO) 12 % (2-9); NEUTROPHILS # (AUTO) 1.27 x10^3/uL (1.8-6.8); NEUTROPHILS % (AUTO) 57 % (42-75)
[2018-07-04 20:17] VITALS: BP 86/37
[2018-07-04] MEDS: INSULIN GLARGINE 100 UNITS/ML, PEN SQ-INSULIN SCH (20:18)
[2018-07-05 00:46] VITALS: BP 90/53
[2018-07-05 06:10] LABS: MEAN CORPUSCULAR HEMOGLOBIN 33.9 pg (27.5-34.5); MEAN CORPUSCULAR HGB CONC 33.8 g/dL (33.2-36.2); MEAN CORPUSCULAR VOLUME 100.5 fL (81-97); MEAN PLATELET VOLUME 9.1 fL (7.4-10.4); RED BLOOD COUNT 2.08 x10^6/uL (4.38-5.82); RED CELL DISTRIBUTION WIDTH 26.9 % (9.4-14.8)
[2018-07-05 06:15] LABS: ALBUMIN 3.5 g/dL (3.4-5.0); ANION GAP 12 mmol/L (5-15); CALCIUM 8.7 mg/dL (8.5-10.1); CHLORIDE 100 mmol/L (98-107); CREATININE 7.72 mg/dL (0.7-1.3); PLATELET COUNT 40 x10^3/uL (130-400)
[2018-07-05 06:17] LABS: ALKALINE PHOSPHATASE 54 U/L (45-117); BILIRUBIN,TOTAL 2.7 mg/dL (0.2-1.0); TOTAL PROTEIN 5.6 g/dL (6.4-8.2)
[2018-07-05 06:24] LABS: ALANINE AMINOTRANSFERASE < 6 U/L (12-78)
[2018-07-05 06:40] LABS: BASOPHILS # (AUTO) 0.01 x10^3/uL (0-0.1); BASOPHILS % (AUTO) 0 % (0-1); EOSINOPHILS % (AUTO) 0 % (1-7); LYMPHOCYTES % (AUTO) 27 % (22-44); MD SCAN; MONOCYTES # (AUTO) 0.38 x10^3/uL (0.2-0.8); MONOCYTES % (AUTO) 13 % (2-9); NEUTROPHILS # (AUTO) 1.76 x10^3/uL (1.8-6.8); NEUTROPHILS % (AUTO) 60 % (42-75)
[2018-07-05] MEDS: INSULIN LISPRO 100 UNITS/ML, PEN SQ-INSULIN SCH ×4 (07:00→20:27)
[2018-07-05 07:50] VITALS: BP 87/47
[2018-07-05] MEDS: MIDODRINE 5 MG TABLET PO SCH ×3 (07:50→20:38)
[2018-07-05] MEDS: SODIUM CHLORIDE FLUSH 10ML SYR IVF SCH ×2 (07:50→20:39)
[2018-07-05] MEDS: FOLIC ACID 1 MG TABLET PO SCH (07:50)
[2018-07-05] MEDS: PANTOPROZOLE 40MG TABLET PO SCH ×2 (07:51→20:38)
[2018-07-05] MEDS: RIFAXIMIN 550 MG TABLET PO SCH ×2 (07:51→20:38)
[2018-07-05] MEDS: LACTULOSE 10 GM/15 ML UDC PO SCH ×3 (07:51→20:39)
[2018-07-05] MEDS: FLUDROCORTISONE 0.1 MG TABLET PO SCH (07:51)
[2018-07-05 13:30] VITALS: BP 77/35
[2018-07-05 13:42] VITALS: BP 81/40
[2018-07-05] MEDS: CEFDINIR 300 MG CAPSULE PO SCH (16:06)
[2018-07-05 16:10] VITALS: BP 86/34
[2018-07-05] MEDS: ONDANSETRON 2MG/ML, 2ML IVPush PRN (18:24)
[2018-07-05 19:54] VITALS: BP 85/44
[2018-07-05] MEDS: INSULIN GLARGINE 100 UNITS/ML, PEN SQ-INSULIN SCH (20:38)
[2018-07-06 02:17] VITALS: BP 92/55
[2018-07-06] MEDS: CEFDINIR 300 MG CAPSULE PO SCH (03:36)
[2018-07-06 05:46] LABS: MEAN CORPUSCULAR HEMOGLOBIN 34.3 pg (27.5-34.5); MEAN CORPUSCULAR HGB CONC 34.1 g/dL (33.2-36.2); MEAN CORPUSCULAR VOLUME 100.5 fL (81-97); MEAN PLATELET VOLUME 8.9 fL (7.4-10.4); RED BLOOD COUNT 2.04 x10^6/uL (4.38-5.82); RED CELL DISTRIBUTION WIDTH 26.8 % (9.4-14.8)
[2018-07-06 05:50] LABS: ALBUMIN 3.3 g/dL (3.4-5.0); ANION GAP 13 mmol/L (5-15); CALCIUM 8.5 mg/dL (8.5-10.1); CHLORIDE 100 mmol/L (98-107)
[2018-07-06 05:54] LABS: ALANINE AMINOTRANSFERASE < 6 U/L (12-78); ALKALINE PHOSPHATASE 50 U/L (45-117); BILIRUBIN,TOTAL 2.8 mg/dL (0.2-1.0); CREATININE 9.08 mg/dL (0.7-1.3); TOTAL PROTEIN 5.6 g/dL (6.4-8.2)
[2018-07-06 05:58] LABS: PLATELET COUNT 40 x10^3/uL (130-400)
[2018-07-06 06:21] LABS: BASOPHILS # (AUTO) 0.01 x10^3/uL (0-0.1); BASOPHILS % (AUTO) 0 % (0-1); EOSINOPHILS % (AUTO) 0 % (1-7); LYMPHOCYTES # (AUTO) 0.82 x10^3/uL (1-3.4); LYMPHOCYTES % (AUTO) 30 % (22-44); MD SCAN; MONOCYTES # (AUTO) 0.35 x10^3/uL (0.2-0.8); MONOCYTES % (AUTO) 13 % (2-9); NEUTROPHILS # (AUTO) 1.51 x10^3/uL (1.8-6.8); NEUTROPHILS % (AUTO) 56 % (42-75)
[2018-07-06] MEDS: INSULIN LISPRO 100 UNITS/ML, PEN SQ-INSULIN SCH ×4 (07:00→20:27)
[2018-07-06 07:02] VITALS: BP 88/49
[2018-07-06] MEDS: MIDODRINE 5 MG TABLET PO SCH ×3 (08:49→20:28)
[2018-07-06] MEDS: PANTOPROZOLE 40MG TABLET PO SCH ×2 (08:49→20:27)
[2018-07-06] MEDS: RIFAXIMIN 550 MG TABLET PO SCH ×2 (08:49→20:27)
[2018-07-06] MEDS: FLUDROCORTISONE 0.1 MG TABLET PO SCH (08:50)
[2018-07-06] MEDS: SODIUM CHLORIDE FLUSH 10ML SYR IVF SCH ×2 (08:50→20:26)
[2018-07-06] MEDS: LACTULOSE 10 GM/15 ML UDC PO SCH ×3 (08:50→20:31)
[2018-07-06] MEDS: FOLIC ACID 1 MG TABLET PO SCH (08:50)
[2018-07-06 12:33] VITALS: BP 89/52
[2018-07-06] MEDS: ALBUMIN HUMAN 25% 100 ML IV PRN ×3 (15:05→17:05)
[2018-07-06] MEDS: INSULIN GLARGINE 100 UNITS/ML, PEN SQ-INSULIN SCH (20:27)
[2018-07-06 20:30] VITALS: BP 83/40
[2018-07-07] VITALS (8 sets, daily range): BP systolic 82–93; BP diastolic 41–57
[2018-07-07] MEDS: CEFDINIR 300 MG CAPSULE PO SCH (03:07)
[2018-07-07 05:31] LABS: MEAN CORPUSCULAR HEMOGLOBIN 34.2 pg (27.5-34.5); MEAN CORPUSCULAR HGB CONC 33.6 g/dL (33.2-36.2); MEAN CORPUSCULAR VOLUME 101.7 fL (81-97); RED BLOOD COUNT 1.93 x10^6/uL (4.38-5.82); RED CELL DISTRIBUTION WIDTH 27.1 % (9.4-14.8)
[2018-07-07 05:41] LABS: ALBUMIN 3.8 g/dL (3.4-5.0); ANION GAP 10 mmol/L (5-15); CHLORIDE 105 mmol/L (98-107)
[2018-07-07 05:45] LABS: % IRON SATURATION 27 % (20-55); ALANINE AMINOTRANSFERASE 6 U/L (12-78); ALKALINE PHOSPHATASE 50 U/L (45-117); BILIRUBIN,TOTAL 2.6 mg/dL (0.2-1.0); IRON LEVEL 32 mcg/dL (65-175); TOTAL IRON BINDING CAPACITY 119 mcg/dL (250-450); TOTAL PROTEIN 5.7 g/dL (6.4-8.2)
[2018-07-07 05:52] LABS: MEAN PLATELET VOLUME 9.8 fL (7.4-10.4)
[2018-07-07 05:53] LABS: PLATELET COUNT 39 x10^3/uL (130-400)
[2018-07-07 05:57] LABS: BASOPHILS # (AUTO) 0.01 x10^3/uL (0-0.1); BASOPHILS % (AUTO) 0 % (0-1); EOSINOPHILS # (AUTO) 0.03 x10^3/uL (0-0.4); EOSINOPHILS % (AUTO) 1 % (1-7); LYMPHOCYTES # (AUTO) 0.57 x10^3/uL (1-3.4); LYMPHOCYTES % (AUTO) 20 % (22-44); MD SCAN; MONOCYTES # (AUTO) 0.36 x10^3/uL (0.2-0.8); MONOCYTES % (AUTO) 13 % (2-9); NEUTROPHILS # (AUTO) 1.94 x10^3/uL (1.8-6.8); NEUTROPHILS % (AUTO) 67 % (42-75)
[2018-07-07] MEDS: INSULIN LISPRO 100 UNITS/ML, PEN SQ-INSULIN SCH ×4 (07:00→20:41)
[2018-07-07] MEDS: LACTULOSE 10 GM/15 ML UDC PO SCH ×3 (07:40→20:42)
[2018-07-07] MEDS: RIFAXIMIN 550 MG TABLET PO SCH ×2 (07:40→20:42)
[2018-07-07] MEDS: PANTOPROZOLE 40MG TABLET PO SCH (07:40)
[2018-07-07] MEDS: FLUDROCORTISONE 0.1 MG TABLET PO SCH (07:40)
[2018-07-07] MEDS: FOLIC ACID 1 MG TABLET PO SCH (07:40)
[2018-07-07] MEDS: MIDODRINE 5 MG TABLET PO SCH ×3 (07:41→20:42)
[2018-07-07] MEDS: SODIUM CHLORIDE FLUSH 10ML SYR IVF SCH ×2 (07:42→20:41)
[2018-07-07 12:45] LABS: OCCULT BLOOD POSITIVE (NEGATIVE)
[2018-07-07] MEDS: PANTOPRAZOLE 40 MG IV IVPush SCH (19:39)
[2018-07-07] MEDS: INSULIN GLARGINE 100 UNITS/ML, PEN SQ-INSULIN SCH (20:42)
[2018-07-08 01:48] VITALS: BP 88/44
[2018-07-08] MEDS: CEFDINIR 300 MG CAPSULE PO SCH (03:24)
[2018-07-08] MEDS: INSULIN LISPRO 100 UNITS/ML, PEN SQ-INSULIN SCH ×4 (07:00→21:06)
[2018-07-08 07:17] VITALS: BP 84/43
[2018-07-08] MEDS: LACTULOSE 10 GM/15 ML UDC PO SCH ×3 (09:00→21:00)
[2018-07-08] MEDS: SODIUM CHLORIDE FLUSH 10ML SYR IVF SCH ×2 (09:10→21:06)
[2018-07-08] MEDS: PANTOPRAZOLE 40 MG IV IVPush SCH ×2 (09:10→21:06)
[2018-07-08] MEDS: MIDODRINE 5 MG TABLET PO SCH ×3 (09:11→21:05)
[2018-07-08] MEDS: FLUDROCORTISONE 0.1 MG TABLET PO SCH (09:11)
[2018-07-08] MEDS: FOLIC ACID 1 MG TABLET PO SCH (09:11)
[2018-07-08] MEDS: RIFAXIMIN 550 MG TABLET PO SCH ×2 (09:19→21:05)
[2018-07-08 13:25] VITALS: BP 106/68
[2018-07-08 14:08] LABS: ALBUMIN 3.7 g/dL (3.4-5.0); ANION GAP 10 mmol/L (5-15); CALCIUM 8.6 mg/dL (8.5-10.1); CHLORIDE 105 mmol/L (98-107); CREATININE 8.28 mg/dL (0.7-1.3)
[2018-07-08 14:09] LABS: ALBUMIN 3.8 g/dL (3.4-5.0); ANION GAP 9 mmol/L (5-15); CALCIUM 8.6 mg/dL (8.5-10.1); CHLORIDE 106 mmol/L (98-107)
[2018-07-08 14:13] LABS: ALKALINE PHOSPHATASE 56 U/L (45-117); BILIRUBIN,TOTAL 2.6 mg/dL (0.2-1.0); CREATININE 8.39 mg/dL (0.7-1.3); TOTAL PROTEIN 5.9 g/dL (6.4-8.2)
[2018-07-08 14:14] LABS: ALANINE AMINOTRANSFERASE < 6 U/L (12-78)
[2018-07-08 14:27] LABS: ABSOLUTE RETICS # 0.055 x10^6/uL (0.5-1.5); RETICULOCYTE COUNT % 2.51 % (0.5-1.5)
[2018-07-08 14:29] LABS: MEAN CORPUSCULAR HEMOGLOBIN 34.7 pg (27.5-34.5); MEAN CORPUSCULAR HGB CONC 34.4 g/dL (33.2-36.2); MEAN PLATELET VOLUME 8.9 fL (7.4-10.4); RED BLOOD COUNT 2.16 x10^6/uL (4.38-5.82)
[2018-07-08 14:31] LABS: PLATELET COUNT 37 x10^3/uL (130-400)
[2018-07-08 14:33] LABS: RED BLOOD COUNT 2.14 x10^6/uL (4.38-5.82)
[2018-07-08 14:50] LABS: MD MORPH REVIEW ONLY
[2018-07-08 14:51] LABS: ANISOCYTOSIS 1+; BASOPHILS % (AUTO) 0 % (0-1); EOSINOPHILS # (AUTO) 0.03 x10^3/uL (0-0.4); EOSINOPHILS % (AUTO) 1 % (1-7); LYMPHOCYTES # (AUTO) 0.34 x10^3/uL (1-3.4); LYMPHOCYTES % (AUTO) 12 % (22-44); MONOCYTES # (AUTO) 0.29 x10^3/uL (0.2-0.8); MONOCYTES % (AUTO) 10 % (2-9); NEUTROPHILS # (AUTO) 2.21 x10^3/uL (1.8-6.8); NEUTROPHILS % (AUTO) 77 % (42-75); OVALOCYTES 1+; POLYCHROMASIA 1+
[2018-07-08 14:52] LABS: <PLATELET ESTIMATE> DECREASED; <PLT MORPHOLOGY> NORMAL PLT MORPH
[2018-07-08 19:45] VITALS: BP 94/55
[2018-07-08] MEDS: INSULIN GLARGINE 100 UNITS/ML, PEN SQ-INSULIN SCH (21:07)
[2018-07-09 02:00] VITALS: BP 103/58
[2018-07-09] MEDS: CEFDINIR 300 MG CAPSULE PO SCH (02:55)
[2018-07-09 05:00] LABS: MEAN CORPUSCULAR HEMOGLOBIN 34.4 pg (27.5-34.5); RED BLOOD COUNT 2.03 x10^6/uL (4.38-5.82)
[2018-07-09 05:04] LABS: ALBUMIN 3.5 g/dL (3.4-5.0); ANION GAP 9 mmol/L (5-15); CALCIUM 8.6 mg/dL (8.5-10.1); CHLORIDE 105 mmol/L (98-107)
[2018-07-09 05:07] LABS: CREATININE 5.64 mg/dL (0.7-1.3)
[2018-07-09 05:21] LABS: MEAN PLATELET VOLUME 8.9 fL (7.4-10.4)
[2018-07-09 05:23] LABS: BASOPHILS # (AUTO) 0.01 x10^3/uL (0-0.1); BASOPHILS % (AUTO) 0 % (0-1); EOSINOPHILS # (AUTO) 0.01 x10^3/uL (0-0.4); EOSINOPHILS % (AUTO) 0 % (1-7); LYMPHOCYTES # (AUTO) 0.43 x10^3/uL (1-3.4); LYMPHOCYTES % (AUTO) 16 % (22-44); MONOCYTES % (AUTO) 15 % (2-9); NEUTROPHILS # (AUTO) 1.91 x10^3/uL (1.8-6.8); NEUTROPHILS % (AUTO) 69 % (42-75); PLATELET COUNT 30 x10^3/uL (130-400)
[2018-07-09 05:24] LABS: MD SCAN
[2018-07-09] MEDS: PANTOPRAZOLE 40 MG IV IVPush SCH ×2 (07:47→19:26)
[2018-07-09] MEDS: INSULIN LISPRO 100 UNITS/ML, PEN SQ-INSULIN SCH ×4 (07:47→21:53)
[2018-07-09 08:29] VITALS: BP 94/56
[2018-07-09] MEDS: RIFAXIMIN 550 MG TABLET PO SCH ×2 (09:37→21:53)
[2018-07-09] MEDS: FLUDROCORTISONE 0.1 MG TABLET PO SCH (09:37)
[2018-07-09] MEDS: FOLIC ACID 1 MG TABLET PO SCH (09:38)
[2018-07-09] MEDS: SODIUM CHLORIDE FLUSH 10ML SYR IVF SCH ×2 (09:38→21:53)
[2018-07-09] MEDS: LACTULOSE 10 GM/15 ML UDC PO SCH ×3 (09:38→21:00)
[2018-07-09] MEDS: MIDODRINE 5 MG TABLET PO SCH ×3 (09:38→21:50)
[2018-07-09 13:43] VITALS: BP 92/54
[2018-07-09 20:00] VITALS: BP 96/56
[2018-07-09] MEDS: INSULIN GLARGINE 100 UNITS/ML, PEN SQ-INSULIN SCH (21:52)
[2018-07-10 01:22] VITALS: BP 93/56
[2018-07-10] MEDS: CEFDINIR 300 MG CAPSULE PO SCH (02:34)
[2018-07-10] MEDS: PANTOPRAZOLE 40 MG IV IVPush SCH ×2 (02:34→15:57)
[2018-07-10] MEDS: INSULIN LISPRO 100 UNITS/ML, PEN SQ-INSULIN SCH ×4 (07:43→21:00)
[2018-07-10 08:10] VITALS: BP 109/63
[2018-07-10] MEDS: MIDODRINE 5 MG TABLET PO SCH ×3 (09:42→21:52)
[2018-07-10] MEDS: RIFAXIMIN 550 MG TABLET PO SCH ×2 (09:42→21:51)
[2018-07-10] MEDS: FLUDROCORTISONE 0.1 MG TABLET PO SCH (09:43)
[2018-07-10] MEDS: SODIUM CHLORIDE FLUSH 10ML SYR IVF SCH ×2 (09:43→21:53)
[2018-07-10] MEDS: LACTULOSE 10 GM/15 ML UDC PO SCH ×3 (09:44→21:52)
[2018-07-10] MEDS: FOLIC ACID 1 MG TABLET PO SCH (09:44)
[2018-07-10 12:54] VITALS: BP 102/58
[2018-07-10] MEDS: ALBUMIN HUMAN 25% 100 ML IV PRN ×3 (14:03→16:03)
[2018-07-10 14:41] LABS: ALANINE AMINOTRANSFERASE 8 U/L (12-78); ALBUMIN 3.3 g/dL (3.4-5.0); ANION GAP 12 mmol/L (5-15); CALCIUM 8.4 mg/dL (8.5-10.1); CHLORIDE 104 mmol/L (98-107); CREATININE 8.12 mg/dL (0.7-1.3)
[2018-07-10 14:49] LABS: ALKALINE PHOSPHATASE 58 U/L (45-117); BILIRUBIN,TOTAL 2.3 mg/dL (0.2-1.0); TOTAL PROTEIN 5.6 g/dL (6.4-8.2)
[2018-07-10 14:57] LABS: MEAN CORPUSCULAR HEMOGLOBIN 34.2 pg (27.5-34.5); MEAN CORPUSCULAR HGB CONC 33.9 g/dL (33.2-36.2); MEAN PLATELET VOLUME 9.9 fL (7.4-10.4); RED BLOOD COUNT 2.06 x10^6/uL (4.38-5.82); RED CELL DISTRIBUTION WIDTH 27.2 % (9.4-14.8)
[2018-07-10 15:12] LABS: MD YES; PLATELET COUNT 38 x10^3/uL (130-400)
[2018-07-10 15:38] LABS: BASOS#(MANUAL) 0.05 x10^3/uL (0-0.1); BASOS% (MANUAL) 1 % (0-1); LYMPH#(MANUAL) 0.97 x10^3/uL (1-3.4); LYMPHS% (MANUAL) 21 % (22-44); MONOS#(MANUAL) 0.55 x10^3/uL (0.3-2.7); MONOS% (MANUAL) 12 % (2-9); SEG#(MANUAL) 3.04 x10^3/uL (1.8-6.8); SEGS% (MANUAL) 66 % (42-75)
[2018-07-10 15:39] LABS: OVALOCYTES 1+
[2018-07-10 15:40] LABS: POLYCHROMASIA 1+; TEAR DROPS 1+
[2018-07-10 15:41] LABS: <PLATELET ESTIMATE> DECREASED; <PLT MORPHOLOGY> NORMAL PLT MORPH; MICROCYTOSIS 1+
[2018-07-10 20:00] VITALS: BP 104/58
[2018-07-10] MEDS: INSULIN GLARGINE 100 UNITS/ML, PEN SQ-INSULIN SCH (21:52)
[2018-07-11] VITALS (11 sets, daily range): BP systolic 85–101; BP diastolic 38–57
[2018-07-11] MEDS: PANTOPRAZOLE 40 MG IV IVPush SCH ×2 (03:04→14:33)
[2018-07-11] MEDS: CEFDINIR 300 MG CAPSULE PO SCH (03:04)
[2018-07-11] MEDS: INSULIN LISPRO 100 UNITS/ML, PEN SQ-INSULIN SCH ×4 (07:00→21:51)
[2018-07-11] MEDS ORDERED: FENTANYL PF 100 MCG/2ML ONE (07:50)
[2018-07-11] MEDS ORDERED: MIDAZOLAM 1 MG/ML, 2ML ONE (07:50)
[2018-07-11 08:20] LABS: ALBUMIN 3.8 g/dL (3.4-5.0); ANION GAP 11 mmol/L (5-15); CALCIUM 8.8 mg/dL (8.5-10.1); CHLORIDE 106 mmol/L (98-107); CREATININE 5.68 mg/dL (0.7-1.3)
[2018-07-11 08:27] LABS: MEAN CORPUSCULAR HEMOGLOBIN 34.8 pg (27.5-34.5); MEAN CORPUSCULAR HGB CONC 34.6 g/dL (33.2-36.2); MEAN CORPUSCULAR VOLUME 100.6 fL (81-97); MEAN PLATELET VOLUME 8.7 fL (7.4-10.4); RED BLOOD COUNT 1.93 x10^6/uL (4.38-5.82); RED CELL DISTRIBUTION WIDTH 27.2 % (9.4-14.8)
[2018-07-11 08:30] LABS: PLATELET COUNT 40 x10^3/uL (130-400)
[2018-07-11 08:39] LABS: BASOPHILS # (AUTO) 0.02 x10^3/uL (0-0.1); BASOPHILS % (AUTO) 1 % (0-1); EOSINOPHILS # (AUTO) 0.01 x10^3/uL (0-0.4); EOSINOPHILS % (AUTO) 0 % (1-7); LYMPHOCYTES # (AUTO) 0.85 x10^3/uL (1-3.4); LYMPHOCYTES % (AUTO) 30 % (22-44); MD SCAN; MONOCYTES # (AUTO) 0.41 x10^3/uL (0.2-0.8); MONOCYTES % (AUTO) 14 % (2-9); NEUTROPHILS # (AUTO) 1.56 x10^3/uL (1.8-6.8); NEUTROPHILS % (AUTO) 55 % (42-75)
[2018-07-11] MEDS: SODIUM CHLORIDE FLUSH 10ML SYR IVF SCH ×2 (09:00→21:51)
[2018-07-11] MEDS: LACTULOSE 10 GM/15 ML UDC PO SCH ×3 (09:00→21:51)
[2018-07-11] MEDS ORDERED: GLYCOPYRROLATE 0.2MG/1ML, 5ML ONE (09:10)
[2018-07-11] MEDS ORDERED: PROPOFOL 10 MG/ML, 20ML ONE (09:10)
[2018-07-11] MEDS ORDERED: SUCCINYLCHOLINE 20 MG/ML, 10ML ONE (09:10)
[2018-07-11] MEDS ORDERED: OXYcodone 5 MG/5 ML ORAL.SOL UDC PO PRN (09:30)
[2018-07-11] MEDS ORDERED: ONDANSETRON 2MG/ML, 2ML IV PRN (09:30)
[2018-07-11] MEDS ORDERED: HYDROmorphone 1 MG/ML, 1ML IV PRN (09:30)
[2018-07-11] MEDS ORDERED: hydrALAzine 20 MG/ML, 1ML IV PRN (09:30)
[2018-07-11] MEDS ORDERED: FENTANYL PF 100 MCG/2ML IV PRN (09:30)
[2018-07-11] MEDS ORDERED: ONDANSETRON ODT 8 MG PO PRN (09:30)
[2018-07-11] MEDS ORDERED: PROMETHAZINE 12.5 MG SUPP PR PRN (09:30)
[2018-07-11] MEDS ORDERED: LABETALOL 5MG/ML, 20ML IV PRN (09:30)
[2018-07-11] MEDS: FLUDROCORTISONE 0.1 MG TABLET PO SCH (11:15)
[2018-07-11] MEDS: SUCRALFATE 1 GM TABLET PO SCH ×3 (11:15→21:50)
[2018-07-11] MEDS: FOLIC ACID 1 MG TABLET PO SCH (11:16)
[2018-07-11] MEDS: MIDODRINE 5 MG TABLET PO SCH ×3 (11:19→21:50)
[2018-07-11] MEDS: RIFAXIMIN 550 MG TABLET PO SCH ×2 (11:19→21:50)
[2018-07-11] MEDS: INSULIN GLARGINE 100 UNITS/ML, PEN SQ-INSULIN SCH (21:52)
[2018-07-12] MEDS: PANTOPRAZOLE 40 MG IV IVPush SCH ×2 (02:56→15:13)
[2018-07-12] MEDS: CEFDINIR 300 MG CAPSULE PO SCH (02:56)
[2018-07-12 03:00] VITALS: BP 89/46
[2018-07-12 06:23] LABS: MEAN CORPUSCULAR HEMOGLOBIN 34.9 pg (27.5-34.5); MEAN CORPUSCULAR HGB CONC 34.8 g/dL (33.2-36.2); MEAN CORPUSCULAR VOLUME 100.4 fL (81-97); MEAN PLATELET VOLUME 9.8 fL (7.4-10.4)
[2018-07-12 06:25] LABS: PLATELET COUNT 40 x10^3/uL (130-400)
[2018-07-12 06:54] LABS: BASOPHILS # (AUTO) 0.03 x10^3/uL (0-0.1); BASOPHILS % (AUTO) 1 % (0-1); EOSINOPHILS # (AUTO) 0.11 x10^3/uL (0-0.4); EOSINOPHILS % (AUTO) 3 % (1-7); LYMPHOCYTES # (AUTO) 0.97 x10^3/uL (1-3.4); LYMPHOCYTES % (AUTO) 27 % (22-44); MD SCAN; MONOCYTES # (AUTO) 0.36 x10^3/uL (0.2-0.8); MONOCYTES % (AUTO) 10 % (2-9); NEUTROPHILS % (AUTO) 59 % (42-75)
[2018-07-12] MEDS: INSULIN LISPRO 100 UNITS/ML, PEN SQ-INSULIN SCH ×4 (07:00→20:19)
[2018-07-12 07:05] VITALS: BP 93/50
[2018-07-12] MEDS: FLUDROCORTISONE 0.1 MG TABLET PO SCH (08:12)
[2018-07-12] MEDS: MIDODRINE 5 MG TABLET PO SCH ×3 (08:12→20:58)
[2018-07-12] MEDS: SODIUM CHLORIDE FLUSH 10ML SYR IVF SCH ×2 (08:13→20:59)
[2018-07-12] MEDS: FOLIC ACID 1 MG TABLET PO SCH (08:13)
[2018-07-12] MEDS: SUCRALFATE 1 GM TABLET PO SCH ×4 (08:14→20:58)
[2018-07-12] MEDS: RIFAXIMIN 550 MG TABLET PO SCH ×2 (08:14→20:58)
[2018-07-12] MEDS: LACTULOSE 10 GM/15 ML UDC PO SCH ×3 (08:16→20:58)
[2018-07-12 12:19] VITALS: BP 92/50
[2018-07-12 20:00] VITALS: BP 93/53
[2018-07-12] MEDS: INSULIN GLARGINE 100 UNITS/ML, PEN SQ-INSULIN SCH (20:58)
[2018-07-12] MEDS: PANTOPROZOLE 40MG TABLET PO SCH (20:58)
[2018-07-13] MEDS: CEFDINIR 300 MG CAPSULE PO SCH ×2 (03:37→20:23)
[2018-07-13 03:38] VITALS: BP 92/52
[2018-07-13 06:56] VITALS: BP 95/50
[2018-07-13] MEDS: INSULIN LISPRO 100 UNITS/ML, PEN SQ-INSULIN SCH ×4 (07:00→20:21)
[2018-07-13] MEDS: LACTULOSE 10 GM/15 ML UDC PO SCH ×3 (07:32→20:25)
[2018-07-13] MEDS: FLUDROCORTISONE 0.1 MG TABLET PO SCH (07:33)
[2018-07-13] MEDS: MIDODRINE 5 MG TABLET PO SCH ×3 (07:33→20:28)
[2018-07-13] MEDS: RIFAXIMIN 550 MG TABLET PO SCH ×2 (07:33→20:26)
[2018-07-13] MEDS: PANTOPROZOLE 40MG TABLET PO SCH ×2 (07:33→20:27)
[2018-07-13] MEDS: SUCRALFATE 1 GM TABLET PO SCH ×4 (07:33→20:25)
[2018-07-13] MEDS: SODIUM CHLORIDE FLUSH 10ML SYR IVF SCH ×2 (07:34→20:23)
[2018-07-13] MEDS: FOLIC ACID 1 MG TABLET PO SCH (07:36)
[2018-07-13 12:05] VITALS: BP 92/48
[2018-07-13 15:57] LABS: MEAN CORPUSCULAR HEMOGLOBIN 34.2 pg (27.5-34.5); MEAN CORPUSCULAR HGB CONC 34.1 g/dL (33.2-36.2); MEAN CORPUSCULAR VOLUME 100.4 fL (81-97); MEAN PLATELET VOLUME 8.9 fL (7.4-10.4); RED BLOOD COUNT 2.03 x10^6/uL (4.38-5.82); RED CELL DISTRIBUTION WIDTH 26.5 % (9.4-14.8)
[2018-07-13 16:00] LABS: PLATELET COUNT 43 x10^3/uL (130-400)
[2018-07-13 16:02] LABS: ALBUMIN 3.3 g/dL (3.4-5.0); ANION GAP 13 mmol/L (5-15); CALCIUM 8.3 mg/dL (8.5-10.1); CHLORIDE 104 mmol/L (98-107)
[2018-07-13 16:05] LABS: ALANINE AMINOTRANSFERASE 8 U/L (12-78); ALKALINE PHOSPHATASE 57 U/L (45-117); BILIRUBIN,TOTAL 2.3 mg/dL (0.2-1.0); CREATININE 8.57 mg/dL (0.7-1.3); TOTAL PROTEIN 5.4 g/dL (6.4-8.2)
[2018-07-13 16:29] LABS: BASOPHILS # (AUTO) 0.02 x10^3/uL (0-0.1); BASOPHILS % (AUTO) 1 % (0-1); EOSINOPHILS # (AUTO) 0.07 x10^3/uL (0-0.4); EOSINOPHILS % (AUTO) 3 % (1-7); LYMPHOCYTES # (AUTO) 0.68 x10^3/uL (1-3.4); LYMPHOCYTES % (AUTO) 22 % (22-44); MD MORPH REVIEW ONLY; MONOCYTES # (AUTO) 0.31 x10^3/uL (0.2-0.8); MONOCYTES % (AUTO) 10 % (2-9); NEUTROPHILS # (AUTO) 1.94 x10^3/uL (1.8-6.8); NEUTROPHILS % (AUTO) 64 % (42-75)
[2018-07-13 16:30] LABS: ANISOCYTOSIS 2+; MICROCYTOSIS 1+; OVALOCYTES 1+; POLYCHROMASIA 1+; TARGET CELLS 1+
[2018-07-13 16:31] LABS: <PLATELET ESTIMATE> DECREASED; <PLT MORPHOLOGY> NORMAL PLT MORPH
[2018-07-13 20:00] VITALS: BP 91/42
[2018-07-13] MEDS: INSULIN GLARGINE 100 UNITS/ML, PEN SQ-INSULIN SCH (20:27)
[2018-07-14 02:00] VITALS: BP 94/55
[2018-07-14] MEDS: INSULIN LISPRO 100 UNITS/ML, PEN SQ-INSULIN SCH ×4 (07:00→21:51)
[2018-07-14] MEDS: RIFAXIMIN 550 MG TABLET PO SCH ×2 (07:33→21:50)
[2018-07-14] MEDS: FLUDROCORTISONE 0.1 MG TABLET PO SCH (07:34)
[2018-07-14] MEDS: FOLIC ACID 1 MG TABLET PO SCH (07:34)
[2018-07-14] MEDS: PANTOPROZOLE 40MG TABLET PO SCH ×2 (07:34→21:50)
[2018-07-14] MEDS: SUCRALFATE 1 GM TABLET PO SCH ×4 (07:34→21:50)
[2018-07-14] MEDS: MIDODRINE 5 MG TABLET PO SCH ×3 (07:35→21:50)
[2018-07-14] MEDS: SODIUM CHLORIDE FLUSH 10ML SYR IVF SCH ×2 (07:35→21:50)
[2018-07-14] MEDS: LACTULOSE 10 GM/15 ML UDC PO SCH ×3 (07:35→21:53)
[2018-07-14 07:59] VITALS: BP 100/42
[2018-07-14] MEDS ORDERED: GLUCAGON 1 MG ONE (08:22)
[2018-07-14 13:43] VITALS: BP 93/52
[2018-07-14 18:47] VITALS: BP 95/57
[2018-07-14] MEDS: INSULIN GLARGINE 100 UNITS/ML, PEN SQ-INSULIN SCH (21:50)
[2018-07-14] MEDS: CEFDINIR 300 MG CAPSULE PO SCH (21:50)
[2018-07-15 01:59] VITALS: BP 92/50
[2018-07-15] MEDS: INSULIN LISPRO 100 UNITS/ML, PEN SQ-INSULIN SCH ×4 (07:00→20:29)
[2018-07-15 07:46] VITALS: BP 88/43
[2018-07-15] MEDS: PANTOPROZOLE 40MG TABLET PO SCH ×2 (08:00→20:28)
[2018-07-15] MEDS: RIFAXIMIN 550 MG TABLET PO SCH ×2 (08:07→20:29)
[2018-07-15] MEDS: SUCRALFATE 1 GM TABLET PO SCH ×4 (08:07→20:29)
[2018-07-15] MEDS: FLUDROCORTISONE 0.1 MG TABLET PO SCH (08:08)
[2018-07-15] MEDS: MIDODRINE 5 MG TABLET PO SCH ×3 (08:08→20:29)
[2018-07-15] MEDS: FOLIC ACID 1 MG TABLET PO SCH (08:09)
[2018-07-15] MEDS: LACTULOSE 10 GM/15 ML UDC PO SCH ×3 (08:09→20:30)
[2018-07-15] MEDS: SODIUM CHLORIDE FLUSH 10ML SYR IVF SCH ×2 (08:10→20:29)
[2018-07-15 13:48] VITALS: BP 111/57
[2018-07-15 14:30] LABS: ANION GAP 12 mmol/L (5-15); CALCIUM 8.3 mg/dL (8.5-10.1); CHLORIDE 106 mmol/L (98-107)
[2018-07-15] MEDS: ALBUMIN HUMAN 25% 100 ML IV PRN ×2 (14:40→16:15)
[2018-07-15 15:10] LABS: BASOPHILS # (AUTO) 0.01 x10^3/uL (0-0.1); BASOPHILS % (AUTO) 0 % (0-1); EOSINOPHILS # (AUTO) 0.09 x10^3/uL (0-0.4); EOSINOPHILS % (AUTO) 3 % (1-7); LYMPHOCYTES # (AUTO) 0.84 x10^3/uL (1-3.4); LYMPHOCYTES % (AUTO) 23 % (22-44); MD MORPH REVIEW ONLY; MEAN CORPUSCULAR HEMOGLOBIN 33.8 pg (27.5-34.5); MEAN CORPUSCULAR HGB CONC 33.1 g/dL (33.2-36.2); MEAN PLATELET VOLUME 8.9 fL (7.4-10.4); MONOCYTES # (AUTO) 0.38 x10^3/uL (0.2-0.8); MONOCYTES % (AUTO) 10 % (2-9); NEUTROPHILS # (AUTO) 2.35 x10^3/uL (1.8-6.8); NEUTROPHILS % (AUTO) 64 % (42-75); PLATELET COUNT 54 x10^3/uL (130-400); RED BLOOD COUNT 2.18 x10^6/uL (4.38-5.82); RED CELL DISTRIBUTION WIDTH 27.1 % (9.4-14.8)
[2018-07-15 15:14] LABS: ANISOCYTOSIS 2+; MICROCYTOSIS 1+; POLYCHROMASIA 1+
[2018-07-15 15:15] LABS: <PLATELET ESTIMATE> DECREASED; <PLT MORPHOLOGY> NORMAL PLT MORPH; OVALOCYTES 1+
[2018-07-15 20:26] VITALS: BP 99/56
[2018-07-15] MEDS: INSULIN GLARGINE 100 UNITS/ML, PEN SQ-INSULIN SCH (20:30)
[2018-07-16 01:26] VITALS: BP 89/46
[2018-07-16] MEDS: INSULIN LISPRO 100 UNITS/ML, PEN SQ-INSULIN SCH ×4 (07:00→21:25)
[2018-07-16 07:18] VITALS: BP 94/55
[2018-07-16] MEDS: PANTOPROZOLE 40MG TABLET PO SCH ×2 (08:00→20:54)
[2018-07-16] MEDS: SODIUM CHLORIDE FLUSH 10ML SYR IVF SCH ×2 (09:00→20:55)
[2018-07-16] MEDS: FOLIC ACID 1 MG TABLET PO SCH (09:00)
[2018-07-16] MEDS: LACTULOSE 10 GM/15 ML UDC PO SCH ×3 (09:00→20:56)
[2018-07-16] MEDS: RIFAXIMIN 550 MG TABLET PO SCH ×2 (10:11→20:53)
[2018-07-16] MEDS: FLUDROCORTISONE 0.1 MG TABLET PO SCH (10:12)
[2018-07-16] MEDS: SUCRALFATE 1 GM TABLET PO SCH ×4 (10:12→20:53)
[2018-07-16] MEDS: MIDODRINE 5 MG TABLET PO SCH ×3 (10:15→20:54)
[2018-07-16] MEDS ORDERED: LACTULOSE 20 GM/30 ML UDC PO ONE (10:30)
[2018-07-16 12:48] VITALS: BP 86/45
[2018-07-16 19:31] VITALS: BP 93/57
[2018-07-16] MEDS: INSULIN GLARGINE 100 UNITS/ML, PEN SQ-INSULIN SCH (21:25)
[2018-07-17 00:38] VITALS: BP 110/63
[2018-07-17] MEDS: INSULIN LISPRO 100 UNITS/ML, PEN SQ-INSULIN SCH ×4 (07:00→21:16)
[2018-07-17 07:25] VITALS: BP 90/53
[2018-07-17] MEDS: SUCRALFATE 1 GM TABLET PO SCH ×4 (08:00→21:16)
[2018-07-17] MEDS: RIFAXIMIN 550 MG TABLET PO SCH ×2 (08:00→21:16)
[2018-07-17] MEDS: FLUDROCORTISONE 0.1 MG TABLET PO SCH (08:00)
[2018-07-17] MEDS: FOLIC ACID 1 MG TABLET PO SCH (08:00)
[2018-07-17] MEDS: MIDODRINE 5 MG TABLET PO SCH ×3 (08:01→21:16)
[2018-07-17] MEDS: SODIUM CHLORIDE FLUSH 10ML SYR IVF SCH ×2 (08:01→21:17)
[2018-07-17] MEDS: PANTOPROZOLE 40MG TABLET PO SCH ×2 (08:01→21:16)
[2018-07-17] MEDS: LACTULOSE 10 GM/15 ML UDC PO SCH ×3 (08:01→21:16)
[2018-07-17 12:58] VITALS: BP 104/60
[2018-07-17 19:20] VITALS: BP 94/57
[2018-07-17] MEDS: INSULIN GLARGINE 100 UNITS/ML, PEN SQ-INSULIN SCH (22:32)
[2018-07-18 01:27] VITALS: BP 98/57
[2018-07-18 04:40] LABS: ALBUMIN 3.6 g/dL (3.4-5.0); ANION GAP 9 mmol/L (5-15); CALCIUM 8.9 mg/dL (8.5-10.1); CHLORIDE 107 mmol/L (98-107); CREATININE 4.89 mg/dL (0.7-1.3)
[2018-07-18 04:56] LABS: MEAN CORPUSCULAR HEMOGLOBIN 35.3 pg (27.5-34.5); MEAN CORPUSCULAR HGB CONC 34.4 g/dL (33.2-36.2); MEAN CORPUSCULAR VOLUME 102.5 fL (81-97); MEAN PLATELET VOLUME 8.9 fL (7.4-10.4); RED BLOOD COUNT 2.16 x10^6/uL (4.38-5.82); RED CELL DISTRIBUTION WIDTH 27.5 % (9.4-14.8)
[2018-07-18 04:57] LABS: PLATELET COUNT 45 x10^3/uL (130-400)
[2018-07-18 04:59] LABS: BASOPHILS # (AUTO) 0.01 x10^3/uL (0-0.1); BASOPHILS % (AUTO) 0 % (0-1); EOSINOPHILS # (AUTO) 0.08 x10^3/uL (0-0.4); EOSINOPHILS % (AUTO) 2 % (1-7); LYMPHOCYTES # (AUTO) 0.69 x10^3/uL (1-3.4); LYMPHOCYTES % (AUTO) 20 % (22-44); MD SCAN; MONOCYTES # (AUTO) 0.44 x10^3/uL (0.2-0.8); MONOCYTES % (AUTO) 13 % (2-9); NEUTROPHILS # (AUTO) 2.21 x10^3/uL (1.8-6.8); NEUTROPHILS % (AUTO) 65 % (42-75)
[2018-07-18] MEDS: INSULIN LISPRO 100 UNITS/ML, PEN SQ-INSULIN SCH ×4 (07:00→20:36)
[2018-07-18] MEDS: LACTULOSE 10 GM/15 ML UDC PO SCH ×3 (07:07→20:36)
[2018-07-18] MEDS: FOLIC ACID 1 MG TABLET PO SCH (07:20)
[2018-07-18] MEDS: PANTOPROZOLE 40MG TABLET PO SCH ×2 (07:20→20:36)
[2018-07-18] MEDS: RIFAXIMIN 550 MG TABLET PO SCH ×2 (07:20→20:35)
[2018-07-18] MEDS: MIDODRINE 5 MG TABLET PO SCH ×3 (07:20→20:36)
[2018-07-18] MEDS: SUCRALFATE 1 GM TABLET PO SCH ×4 (07:20→20:35)
[2018-07-18] MEDS: FLUDROCORTISONE 0.1 MG TABLET PO SCH (07:21)
[2018-07-18] MEDS: SODIUM CHLORIDE FLUSH 10ML SYR IVF SCH ×2 (07:21→20:36)
[2018-07-18 08:51] VITALS: BP 95/51
[2018-07-18 14:32] VITALS: BP 89/48
[2018-07-18 19:43] VITALS: BP 91/51
[2018-07-18] MEDS: INSULIN GLARGINE 100 UNITS/ML, PEN SQ-INSULIN SCH (20:37)
[2018-07-19 00:50] VITALS: BP 95/53
[2018-07-19] MEDS: INSULIN LISPRO 100 UNITS/ML, PEN SQ-INSULIN SCH ×4 (07:00→20:37)
[2018-07-19 07:03] VITALS: BP 73/29
[2018-07-19 07:24] VITALS: BP 81/44
[2018-07-19] MEDS: RIFAXIMIN 550 MG TABLET PO SCH ×2 (08:46→20:29)
[2018-07-19] MEDS: PANTOPROZOLE 40MG TABLET PO SCH ×2 (08:47→20:29)
[2018-07-19] MEDS: SUCRALFATE 1 GM TABLET PO SCH ×4 (08:47→20:29)
[2018-07-19] MEDS: FLUDROCORTISONE 0.1 MG TABLET PO SCH (08:47)
[2018-07-19] MEDS: LACTULOSE 10 GM/15 ML UDC PO SCH ×3 (08:47→20:37)
[2018-07-19] MEDS: MIDODRINE 5 MG TABLET PO SCH ×3 (08:47→20:29)
[2018-07-19] MEDS: FOLIC ACID 1 MG TABLET PO SCH (08:47)
[2018-07-19] MEDS: SODIUM CHLORIDE FLUSH 10ML SYR IVF SCH ×2 (08:48→20:37)
[2018-07-19 13:21] VITALS: BP 86/44
[2018-07-19 20:00] VITALS: BP 84/42
[2018-07-19] MEDS: DIPHENHYDRAMINE 25 MG CAPSULE PO PRN (20:29)
[2018-07-19] MEDS: INSULIN GLARGINE 100 UNITS/ML, PEN SQ-INSULIN SCH (20:41)
[2018-07-20 02:00] VITALS: BP 96/57
[2018-07-20 06:43] VITALS: BP 95/53
[2018-07-20] MEDS: INSULIN LISPRO 100 UNITS/ML, PEN SQ-INSULIN SCH ×4 (07:00→21:00)
[2018-07-20] MEDS: PANTOPROZOLE 40MG TABLET PO SCH ×2 (08:08→20:21)
[2018-07-20] MEDS: SUCRALFATE 1 GM TABLET PO SCH ×4 (08:08→20:21)
[2018-07-20] MEDS: MIDODRINE 5 MG TABLET PO SCH ×3 (08:08→20:21)
[2018-07-20] MEDS: FLUDROCORTISONE 0.1 MG TABLET PO SCH (08:08)
[2018-07-20] MEDS: FOLIC ACID 1 MG TABLET PO SCH (08:09)
[2018-07-20] MEDS: SODIUM CHLORIDE FLUSH 10ML SYR IVF SCH ×3 (08:09→20:24)
[2018-07-20] MEDS: RIFAXIMIN 550 MG TABLET PO SCH ×2 (08:09→20:21)
[2018-07-20] MEDS: LACTULOSE 10 GM/15 ML UDC PO SCH ×3 (08:14→20:22)
[2018-07-20] MEDS: ONDANSETRON 2MG/ML, 2ML IVPush PRN (10:18)
[2018-07-20] MEDS ORDERED: ONDANSETRON ODT 4 MG ONE (10:25)
[2018-07-20 12:42] VITALS: BP 99/55
[2018-07-20 19:52] VITALS: BP 93/46
[2018-07-20] MEDS: INSULIN GLARGINE 100 UNITS/ML, PEN SQ-INSULIN SCH (22:22)
[2018-07-21 02:03] VITALS: BP 91/47
[2018-07-21] MEDS: INSULIN LISPRO 100 UNITS/ML, PEN SQ-INSULIN SCH ×4 (07:00→21:02)
[2018-07-21] MEDS: SODIUM CHLORIDE FLUSH 10ML SYR IVF SCH ×2 (07:18→21:01)
[2018-07-21] MEDS: FOLIC ACID 1 MG TABLET PO SCH (08:36)
[2018-07-21] MEDS: FLUDROCORTISONE 0.1 MG TABLET PO SCH (08:36)
[2018-07-21] MEDS: RIFAXIMIN 550 MG TABLET PO SCH ×2 (08:36→21:01)
[2018-07-21] MEDS: LACTULOSE 10 GM/15 ML UDC PO SCH ×3 (08:36→21:00)
[2018-07-21] MEDS: MIDODRINE 5 MG TABLET PO SCH ×3 (08:36→21:01)
[2018-07-21] MEDS: SUCRALFATE 1 GM TABLET PO SCH ×4 (08:36→21:01)
[2018-07-21] MEDS: PANTOPROZOLE 40MG TABLET PO SCH ×2 (08:36→21:01)
[2018-07-21 08:38] VITALS: BP 100/57
[2018-07-21 15:58] VITALS: BP 100/49
[2018-07-21 19:53] VITALS: BP 86/46
[2018-07-21 19:57] VITALS: BP 100/55
[2018-07-21] MEDS: INSULIN GLARGINE 100 UNITS/ML, PEN SQ-INSULIN SCH (21:02)
[2018-07-21] MEDS: ZOLPIDEM 5MG TABLET PO PRN (22:33)
[2018-07-22 01:40] VITALS: BP 90/48
[2018-07-22] MEDS: INSULIN LISPRO 100 UNITS/ML, PEN SQ-INSULIN SCH ×4 (07:00→20:43)
[2018-07-22 07:26] VITALS: BP 94/52
[2018-07-22] MEDS: RIFAXIMIN 550 MG TABLET PO SCH ×2 (08:56→20:43)
[2018-07-22] MEDS: SODIUM CHLORIDE FLUSH 10ML SYR IVF SCH ×2 (08:57→20:47)
[2018-07-22] MEDS: PANTOPROZOLE 40MG TABLET PO SCH ×2 (08:57→20:42)
[2018-07-22] MEDS: FLUDROCORTISONE 0.1 MG TABLET PO SCH (08:57)
[2018-07-22] MEDS: MIDODRINE 5 MG TABLET PO SCH ×3 (08:57→20:42)
[2018-07-22] MEDS: FOLIC ACID 1 MG TABLET PO SCH (08:57)
[2018-07-22] MEDS: SUCRALFATE 1 GM TABLET PO SCH ×4 (08:57→20:43)
[2018-07-22] MEDS: LACTULOSE 10 GM/15 ML UDC PO SCH ×3 (08:58→20:44)
[2018-07-22 13:14] VITALS: BP 99/63
[2018-07-22 20:27] VITALS: BP 80/42
[2018-07-22] MEDS: INSULIN GLARGINE 100 UNITS/ML, PEN SQ-INSULIN SCH (20:44)
[2018-07-22 21:50] VITALS: BP 88/48
[2018-07-23 00:38] VITALS: BP 85/81
[2018-07-23] MEDS: INSULIN LISPRO 100 UNITS/ML, PEN SQ-INSULIN SCH ×4 (07:00→21:03)
[2018-07-23 07:47] VITALS: BP 81/47
[2018-07-23] MEDS: FLUDROCORTISONE 0.1 MG TABLET PO SCH (08:12)
[2018-07-23] MEDS: MIDODRINE 5 MG TABLET PO SCH ×3 (08:12→21:02)
[2018-07-23] MEDS: PANTOPROZOLE 40MG TABLET PO SCH ×2 (08:12→21:02)
[2018-07-23] MEDS: RIFAXIMIN 550 MG TABLET PO SCH ×2 (08:12→21:02)
[2018-07-23] MEDS: SUCRALFATE 1 GM TABLET PO SCH ×4 (08:12→21:08)
[2018-07-23] MEDS: FOLIC ACID 1 MG TABLET PO SCH (08:12)
[2018-07-23] MEDS: LACTULOSE 10 GM/15 ML UDC PO SCH ×3 (08:14→21:03)
[2018-07-23] MEDS: SODIUM CHLORIDE FLUSH 10ML SYR IVF SCH ×2 (08:14→21:45)
[2018-07-23 14:34] VITALS: BP 102/53
[2018-07-23 18:38] VITALS: BP 84/46
[2018-07-23] MEDS: INSULIN GLARGINE 100 UNITS/ML, PEN SQ-INSULIN SCH (21:01)
[2018-07-23] MEDS: ZOLPIDEM 5MG TABLET PO PRN (21:02)
[2018-07-24 00:10] VITALS: BP 93/55
[2018-07-24] MEDS: INSULIN LISPRO 100 UNITS/ML, PEN SQ-INSULIN SCH ×4 (07:00→21:00)
[2018-07-24] MEDS ORDERED: SODIUM CHLORIDE 0.9%, 500ML IVBOLUS ONE (07:30)
[2018-07-24] MEDS: ALBUMIN HUMAN 25% 100 ML IV PRN ×2 (07:59→08:59)
[2018-07-24 08:00] VITALS: BP 82/39
[2018-07-24] MEDS: LACTULOSE 10 GM/15 ML UDC PO SCH ×3 (09:00→21:00)
[2018-07-24] MEDS: SODIUM CHLORIDE FLUSH 10ML SYR IVF SCH ×2 (09:00→21:00)
[2018-07-24] MEDS: MIDODRINE 5 MG TABLET PO SCH ×3 (09:05→22:48)
[2018-07-24] MEDS: SUCRALFATE 1 GM TABLET PO SCH ×4 (11:00→22:48)
[2018-07-24] MEDS: PANTOPROZOLE 40MG TABLET PO SCH ×2 (12:50→22:47)
[2018-07-24] MEDS: FLUDROCORTISONE 0.1 MG TABLET PO SCH (12:51)
[2018-07-24] MEDS: FOLIC ACID 1 MG TABLET PO SCH (12:51)
[2018-07-24] MEDS: RIFAXIMIN 550 MG TABLET PO SCH ×2 (12:51→22:48)
[2018-07-24 13:05] VITALS: BP 91/50
[2018-07-24 13:23] VITALS: BP 99/56
[2018-07-24 20:05] VITALS: BP 104/56
[2018-07-24] MEDS: ZOLPIDEM 5MG TABLET PO PRN (22:47)
[2018-07-24] MEDS: INSULIN GLARGINE 100 UNITS/ML, PEN SQ-INSULIN SCH (22:48)
[2018-07-25 02:30] VITALS: BP 93/54
[2018-07-25] MEDS: INSULIN LISPRO 100 UNITS/ML, PEN SQ-INSULIN SCH ×4 (07:00→20:45)
[2018-07-25 08:06] VITALS: BP 88/50
[2018-07-25] MEDS: MIDODRINE 5 MG TABLET PO SCH ×3 (08:16→20:43)
[2018-07-25] MEDS: RIFAXIMIN 550 MG TABLET PO SCH ×2 (08:16→20:43)
[2018-07-25] MEDS: FLUDROCORTISONE 0.1 MG TABLET PO SCH (08:16)
[2018-07-25] MEDS: PANTOPROZOLE 40MG TABLET PO SCH ×2 (08:17→20:43)
[2018-07-25] MEDS: SUCRALFATE 1 GM TABLET PO SCH ×4 (08:17→20:44)
[2018-07-25] MEDS: SODIUM CHLORIDE FLUSH 10ML SYR IVF SCH ×2 (08:17→20:44)
[2018-07-25] MEDS: FOLIC ACID 1 MG TABLET PO SCH (08:17)
[2018-07-25] MEDS: LACTULOSE 10 GM/15 ML UDC PO SCH ×3 (08:25→20:45)
[2018-07-25] MEDS: ONDANSETRON ODT 4 MG PO PRN (11:05)
[2018-07-25 13:54] VITALS: BP 90/52
[2018-07-25 19:50] VITALS: BP 96/55
[2018-07-25] MEDS: INSULIN GLARGINE 100 UNITS/ML, PEN SQ-INSULIN SCH (20:44)
[2018-07-25] MEDS: DIPHENHYDRAMINE 25 MG CAPSULE PO PRN (23:31)
[2018-07-26 02:09] VITALS: BP 84/45
[2018-07-26 05:30] LABS: MEAN CORPUSCULAR HEMOGLOBIN 36.1 pg (27.5-34.5); MEAN CORPUSCULAR HGB CONC 34.7 g/dL (33.2-36.2); MEAN PLATELET VOLUME 9.6 fL (7.4-10.4); RED BLOOD COUNT 2.08 x10^6/uL (4.38-5.82); RED CELL DISTRIBUTION WIDTH 27.9 % (9.4-14.8)
[2018-07-26 05:41] LABS: ALBUMIN 3.9 g/dL (3.4-5.0); ANION GAP 12 mmol/L (5-15); CALCIUM 8.9 mg/dL (8.5-10.1); CHLORIDE 104 mmol/L (98-107)
[2018-07-26 05:45] LABS: ALANINE AMINOTRANSFERASE 14 U/L (12-78); ALKALINE PHOSPHATASE 77 U/L (45-117); BILIRUBIN,TOTAL 3.4 mg/dL (0.2-1.0); CREATININE 7.99 mg/dL (0.7-1.3); TOTAL PROTEIN 6.6 g/dL (6.4-8.2)
[2018-07-26 05:48] LABS: PLATELET COUNT 36 x10^3/uL (130-400)
[2018-07-26 06:09] LABS: BASOPHILS # (AUTO) 0.02 x10^3/uL (0-0.1); BASOPHILS % (AUTO) 1 % (0-1); EOSINOPHILS # (AUTO) 0.06 x10^3/uL (0-0.4); EOSINOPHILS % (AUTO) 2 % (1-7); LYMPHOCYTES # (AUTO) 0.79 x10^3/uL (1-3.4); LYMPHOCYTES % (AUTO) 20 % (22-44); MD MORPH REVIEW ONLY; MONOCYTES # (AUTO) 0.44 x10^3/uL (0.2-0.8); MONOCYTES % (AUTO) 11 % (2-9); NEUTROPHILS # (AUTO) 2.62 x10^3/uL (1.8-6.8); NEUTROPHILS % (AUTO) 67 % (42-75)
[2018-07-26 06:10] LABS: ANISOCYTOSIS 2+; OVALOCYTES 1+; POLYCHROMASIA 1+
[2018-07-26 06:11] LABS: <PLATELET ESTIMATE> DECREASED
[2018-07-26 06:12] LABS: <PLT MORPHOLOGY> NORMAL PLT MORPH
[2018-07-26] MEDS: INSULIN LISPRO 100 UNITS/ML, PEN SQ-INSULIN SCH ×4 (07:00→21:06)
[2018-07-26 07:30] VITALS: BP 93/48
[2018-07-26] MEDS: LACTULOSE 10 GM/15 ML UDC PO SCH ×3 (09:00→21:05)
[2018-07-26] MEDS: SODIUM CHLORIDE FLUSH 10ML SYR IVF SCH ×2 (09:13→21:05)
[2018-07-26] MEDS: SUCRALFATE 1 GM TABLET PO SCH ×4 (09:13→21:05)
[2018-07-26] MEDS: FOLIC ACID 1 MG TABLET PO SCH (09:13)
[2018-07-26] MEDS: MIDODRINE 5 MG TABLET PO SCH ×3 (09:13→21:04)
[2018-07-26] MEDS: FLUDROCORTISONE 0.1 MG TABLET PO SCH (09:13)
[2018-07-26] MEDS: PANTOPROZOLE 40MG TABLET PO SCH ×2 (09:13→21:05)
[2018-07-26] MEDS: RIFAXIMIN 550 MG TABLET PO SCH ×2 (09:13→21:05)
[2018-07-26] MEDS: NEUTRA PHOS K 250 MG TABLET PO SCH ×2 (12:28→21:05)
[2018-07-26] MEDS: DARBEPOETIN 60 MCG/ML SQ SCH (12:58)
[2018-07-26 14:20] VITALS: BP 93/59
[2018-07-26 20:00] VITALS: BP 91/47
[2018-07-26] MEDS: DIPHENHYDRAMINE 25 MG CAPSULE PO PRN (21:05)
[2018-07-26] MEDS: INSULIN GLARGINE 100 UNITS/ML, PEN SQ-INSULIN SCH (21:06)
[2018-07-27] VITALS (7 sets, daily range): BP systolic 83–117; BP diastolic 39–64
[2018-07-27 05:47] LABS: MEAN CORPUSCULAR HEMOGLOBIN 36.1 pg (27.5-34.5); MEAN CORPUSCULAR HGB CONC 34.8 g/dL (33.2-36.2); MEAN CORPUSCULAR VOLUME 103.7 fL (81-97); RED BLOOD COUNT 1.99 x10^6/uL (4.38-5.82); RED CELL DISTRIBUTION WIDTH 28.2 % (9.4-14.8)
[2018-07-27 05:51] LABS: CHLORIDE 102 mmol/L (98-107)
[2018-07-27 06:04] LABS: % IRON SATURATION 62 % (20-55); ALANINE AMINOTRANSFERASE 13 U/L (12-78); ALBUMIN 3.5 g/dL (3.4-5.0); ALKALINE PHOSPHATASE 62 U/L (45-117); ANION GAP 17 mmol/L (5-15); BILIRUBIN,TOTAL 3.2 mg/dL (0.2-1.0); CALCIUM 8.9 mg/dL (8.5-10.1); IRON LEVEL 91 mcg/dL (65-175); TOTAL IRON BINDING CAPACITY 146 mcg/dL (250-450); TOTAL PROTEIN 6.1 g/dL (6.4-8.2)
[2018-07-27 06:16] LABS: MEAN PLATELET VOLUME 10.1 fL (7.4-10.4)
[2018-07-27 06:18] LABS: PLATELET COUNT 35 x10^3/uL (130-400)
[2018-07-27 06:19] LABS: BASOPHILS # (AUTO) 0.01 x10^3/uL (0-0.1); BASOPHILS % (AUTO) 0 % (0-1); EOSINOPHILS # (AUTO) 0.02 x10^3/uL (0-0.4); EOSINOPHILS % (AUTO) 1 % (1-7); LYMPHOCYTES % (AUTO) 24 % (22-44); MD SCAN; MONOCYTES # (AUTO) 0.42 x10^3/uL (0.2-0.8); MONOCYTES % (AUTO) 14 % (2-9); NEUTROPHILS # (AUTO) 1.74 x10^3/uL (1.8-6.8); NEUTROPHILS % (AUTO) 60 % (42-75)
[2018-07-27] MEDS: INSULIN LISPRO 100 UNITS/ML, PEN SQ-INSULIN SCH ×4 (07:00→21:00)
[2018-07-27] MEDS: RIFAXIMIN 550 MG TABLET PO SCH ×2 (09:21→21:28)
[2018-07-27] MEDS: MIDODRINE 5 MG TABLET PO SCH ×3 (09:21→21:28)
[2018-07-27] MEDS: NEUTRA PHOS K 250 MG TABLET PO SCH ×2 (09:21→21:28)
[2018-07-27] MEDS: PANTOPROZOLE 40MG TABLET PO SCH ×2 (09:21→21:28)
[2018-07-27] MEDS: FLUDROCORTISONE 0.1 MG TABLET PO SCH (09:21)
[2018-07-27] MEDS: FOLIC ACID 1 MG TABLET PO SCH (09:21)
[2018-07-27] MEDS: SUCRALFATE 1 GM TABLET PO SCH ×4 (09:21→21:28)
[2018-07-27] MEDS: SODIUM CHLORIDE FLUSH 10ML SYR IVF SCH ×2 (09:22→21:47)
[2018-07-27] MEDS: ONDANSETRON ODT 4 MG PO PRN ×3 (09:45→22:07)
[2018-07-27] MEDS: LACTULOSE 10 GM/15 ML UDC PO SCH ×4 (10:05→22:11)
[2018-07-27] MEDS: INSULIN GLARGINE 100 UNITS/ML, PEN SQ-INSULIN SCH (21:30)
[2018-07-28 00:41] VITALS: BP 112/61
[2018-07-28 05:05] LABS: MEAN CORPUSCULAR HEMOGLOBIN 35.2 pg (27.5-34.5); MEAN CORPUSCULAR HGB CONC 34.2 g/dL (33.2-36.2); MEAN CORPUSCULAR VOLUME 102.9 fL (81-97); MEAN PLATELET VOLUME 10.1 fL (7.4-10.4); RED BLOOD COUNT 2.04 x10^6/uL (4.38-5.82)
[2018-07-28 05:07] LABS: PLATELET COUNT 31 x10^3/uL (130-400); RED CELL DISTRIBUTION WIDTH 28.1 % (9.4-14.8)
[2018-07-28 05:12] LABS: ALANINE AMINOTRANSFERASE 14 U/L (12-78); ALBUMIN 3.6 g/dL (3.4-5.0); ANION GAP 16 mmol/L (5-15); CHLORIDE 103 mmol/L (98-107); CREATININE 8.52 mg/dL (0.7-1.3)
[2018-07-28 05:14] LABS: ALKALINE PHOSPHATASE 66 U/L (45-117); BILIRUBIN,TOTAL 4.5 mg/dL (0.2-1.0); TOTAL PROTEIN 6.1 g/dL (6.4-8.2)
[2018-07-28 05:56] LABS: BASOPHILS # (AUTO) 0.01 x10^3/uL (0-0.1); BASOPHILS % (AUTO) 0 % (0-1); EOSINOPHILS % (AUTO) 0 % (1-7); LYMPHOCYTES # (AUTO) 0.47 x10^3/uL (1-3.4); LYMPHOCYTES % (AUTO) 13 % (22-44); MD SCAN; MONOCYTES # (AUTO) 0.51 x10^3/uL (0.2-0.8); MONOCYTES % (AUTO) 14 % (2-9); NEUTROPHILS # (AUTO) 2.69 x10^3/uL (1.8-6.8); NEUTROPHILS % (AUTO) 73 % (42-75)
[2018-07-28] MEDS: ONDANSETRON ODT 4 MG PO PRN (08:25)
[2018-07-28] MEDS: PANTOPROZOLE 40MG TABLET PO SCH ×2 (08:26→21:20)
[2018-07-28] MEDS: RIFAXIMIN 550 MG TABLET PO SCH ×2 (08:27→21:20)
[2018-07-28] MEDS: FLUDROCORTISONE 0.1 MG TABLET PO SCH (08:27)
[2018-07-28] MEDS: FOLIC ACID 1 MG TABLET PO SCH (08:27)
[2018-07-28] MEDS: MIDODRINE 5 MG TABLET PO SCH ×3 (08:27→21:20)
[2018-07-28] MEDS: SUCRALFATE 1 GM TABLET PO SCH ×4 (08:27→21:20)
[2018-07-28] MEDS: INSULIN LISPRO 100 UNITS/ML, PEN SQ-INSULIN SCH ×4 (08:28→21:21)
[2018-07-28] MEDS: SODIUM CHLORIDE FLUSH 10ML SYR IVF SCH ×2 (08:29→21:00)
[2018-07-28] MEDS: LACTULOSE 10 GM/15 ML UDC PO SCH ×3 (08:41→21:21)
[2018-07-28] MEDS ORDERED: LACTULOSE 10 GM/15 ML UDC PO ONE (11:30)
[2018-07-28] MEDS: OMEPRAZOLE 20 MG CAPSULE.DR PO SCH (11:43)
[2018-07-28] MEDS ORDERED: SUCR1TAB33 PO ×2 (12:04)
[2018-07-28 14:45] VITALS: BP 108/45
[2018-07-28 18:45] VITALS: BP 114/65
[2018-07-28] MEDS: INSULIN GLARGINE 100 UNITS/ML, PEN SQ-INSULIN SCH (21:22)
[2018-07-29 00:26] VITALS: BP 108/61
[2018-07-29] MEDS: OMEPRAZOLE 20 MG CAPSULE.DR PO SCH (05:39)
[2018-07-29 07:00] VITALS: BP 104/50
[2018-07-29] MEDS: INSULIN LISPRO 100 UNITS/ML, PEN SQ-INSULIN SCH ×4 (07:00→20:35)
[2018-07-29] MEDS: FOLIC ACID 1 MG TABLET PO SCH (08:44)
[2018-07-29] MEDS: MIDODRINE 5 MG TABLET PO SCH ×3 (08:44→20:41)
[2018-07-29] MEDS: SODIUM CHLORIDE FLUSH 10ML SYR IVF SCH ×2 (08:45→21:00)
[2018-07-29] MEDS: RIFAXIMIN 550 MG TABLET PO SCH ×2 (08:45→20:36)
[2018-07-29] MEDS: FLUDROCORTISONE 0.1 MG TABLET PO SCH (08:45)
[2018-07-29] MEDS: SUCRALFATE 1 GM TABLET PO SCH ×4 (08:45→20:36)
[2018-07-29] MEDS: LACTULOSE 10 GM/15 ML UDC PO SCH ×3 (08:45→20:36)
[2018-07-29] MEDS: PANTOPROZOLE 40MG TABLET PO SCH ×2 (08:45→20:36)
[2018-07-29] MEDS: ALBUMIN HUMAN 25% 100 ML IV PRN ×2 (09:45→11:23)
[2018-07-29 13:48] VITALS: BP 95/55
[2018-07-29] MEDS: INSULIN GLARGINE 100 UNITS/ML, PEN SQ-INSULIN SCH (20:35)
[2018-07-29 20:40] VITALS: BP 109/53
[2018-07-30] VITALS (8 sets, daily range): BP systolic 73–105; BP diastolic 29–54
[2018-07-30] MEDS: OMEPRAZOLE 20 MG CAPSULE.DR PO SCH (05:45)
[2018-07-30] MEDS: INSULIN LISPRO 100 UNITS/ML, PEN SQ-INSULIN SCH ×4 (07:00→21:00)
[2018-07-30] MEDS: LACTULOSE 10 GM/15 ML UDC PO SCH ×3 (08:38→22:18)
[2018-07-30] MEDS: MIDODRINE 5 MG TABLET PO SCH ×3 (08:39→22:27)
[2018-07-30] MEDS: SUCRALFATE 1 GM TABLET PO SCH ×4 (08:39→22:18)
[2018-07-30] MEDS: RIFAXIMIN 550 MG TABLET PO SCH ×2 (08:39→22:18)
[2018-07-30] MEDS: FOLIC ACID 1 MG TABLET PO SCH (08:39)
[2018-07-30] MEDS: PANTOPROZOLE 40MG TABLET PO SCH ×2 (08:39→22:18)
[2018-07-30] MEDS: FLUDROCORTISONE 0.1 MG TABLET PO SCH (08:49)
[2018-07-30] MEDS: SODIUM CHLORIDE FLUSH 10ML SYR IVF SCH ×2 (08:49→21:00)
[2018-07-30] MEDS ORDERED: SODIUM CHLORIDE 0.9%, 250ML IVBOLUS ONE (13:00)
[2018-07-30] MEDS: INSULIN GLARGINE 100 UNITS/ML, PEN SQ-INSULIN SCH (22:18)
[2018-07-31] VITALS (8 sets, daily range): BP systolic 78–91; BP diastolic 43–51
[2018-07-31 05:49] LABS: MEAN CORPUSCULAR HEMOGLOBIN 36.9 pg (27.5-34.5); MEAN CORPUSCULAR HGB CONC 35.4 g/dL (33.2-36.2); MEAN CORPUSCULAR VOLUME 104.1 fL (81-97); RED BLOOD COUNT 1.86 x10^6/uL (4.38-5.82); RED CELL DISTRIBUTION WIDTH 27.4 % (9.4-14.8)
[2018-07-31 05:53] LABS: PLATELET COUNT 33 x10^3/uL (130-400)
[2018-07-31 05:58] LABS: ALBUMIN 3.5 g/dL (3.4-5.0); ANION GAP 15 mmol/L (5-15); CALCIUM 8.6 mg/dL (8.5-10.1); CHLORIDE 101 mmol/L (98-107)
[2018-07-31 06:00] LABS: CREATININE 8.88 mg/dL (0.7-1.3)
[2018-07-31 06:04] LABS: BASOPHILS # (AUTO) 0.04 x10^3/uL (0-0.1); BASOPHILS % (AUTO) 1 % (0-1); EOSINOPHILS # (AUTO) 0.07 x10^3/uL (0-0.4); EOSINOPHILS % (AUTO) 2 % (1-7); LYMPHOCYTES # (AUTO) 0.65 x10^3/uL (1-3.4); LYMPHOCYTES % (AUTO) 20 % (22-44); MD SCAN; MONOCYTES # (AUTO) 0.55 x10^3/uL (0.2-0.8); MONOCYTES % (AUTO) 17 % (2-9); NEUTROPHILS # (AUTO) 1.97 x10^3/uL (1.8-6.8); NEUTROPHILS % (AUTO) 60 % (42-75)
[2018-07-31] MEDS: OMEPRAZOLE 20 MG CAPSULE.DR PO SCH (06:32)
[2018-07-31] MEDS: INSULIN LISPRO 100 UNITS/ML, PEN SQ-INSULIN SCH ×4 (07:00→21:00)
[2018-07-31] MEDS ORDERED: POTASSIUM CHLORIDE 20 MEQ TAB.ER.PRT PO ONE (08:00)
[2018-07-31] MEDS: LACTULOSE 10 GM/15 ML UDC PO SCH ×3 (09:04→21:00)
[2018-07-31] MEDS: MIDODRINE 5 MG TABLET PO SCH ×3 (09:05→21:00)
[2018-07-31] MEDS: RIFAXIMIN 550 MG TABLET PO SCH ×2 (09:05→22:02)
[2018-07-31] MEDS: FLUDROCORTISONE 0.1 MG TABLET PO SCH (09:05)
[2018-07-31] MEDS: SODIUM CHLORIDE FLUSH 10ML SYR IVF SCH ×2 (09:06→22:03)
[2018-07-31] MEDS: FOLIC ACID 1 MG TABLET PO SCH (09:06)
[2018-07-31] MEDS: SUCRALFATE 1 GM TABLET PO SCH ×4 (09:06→21:00)
[2018-07-31] MEDS: PANTOPROZOLE 40MG TABLET PO SCH ×2 (09:06→20:00)
[2018-07-31 13:22] LABS: ABSOLUTE RETICS # 0.066 x10^6/uL (0.5-1.5); RETICULOCYTE COUNT % 3.56 % (0.5-1.5)
[2018-07-31 13:23] LABS: RED BLOOD COUNT 1.86 x10^6/uL (4.38-5.82)
[2018-07-31 13:34] LABS: BILIRUBIN, DIRECT 1.3 mg/dL (0.1-0.2); BILIRUBIN,INDIRECT 1.8 mg/dL (0.0-2.0); BILIRUBIN,TOTAL 3.1 mg/dL (0.2-1.0)
[2018-07-31] MEDS: ALBUMIN HUMAN 25% 100 ML IV PRN ×3 (14:35→16:35)
[2018-07-31] MEDS: INSULIN GLARGINE 100 UNITS/ML, PEN SQ-INSULIN SCH (22:03)
[2018-08-01] VITALS (13 sets, daily range): BP systolic 73–94; BP diastolic 30–46
[2018-08-01] MEDS: ACETAMINOPHEN 325 MG TABLET PO PRN (01:47)
[2018-08-01] MEDS ORDERED: SODIUM CHLORIDE 0.9% 1,000 ML IV ONE (02:00)
[2018-08-01] MEDS ORDERED: PIPERACILLIN/TAZO/PMX 3.375GM 50 ML IV STA (03:15)
[2018-08-01] MEDS ORDERED: VANCOMYCIN PER PHARMACY MC PRN (03:15)
[2018-08-01] MEDS ORDERED: SODIUM CHLORIDE 0.9% 1,000 ML IV SCH (03:30)
[2018-08-01] MEDS ORDERED: PHARMACOKINETIC CONSULTATION MC ONE (03:30)
[2018-08-01] MEDS ORDERED: PHARMACOKINETIC MONITORING MC PRN (03:30)
[2018-08-01 03:43] LABS: ALANINE AMINOTRANSFERASE 16 U/L (12-78); ALBUMIN 3.7 g/dL (3.4-5.0); ANION GAP 11 mmol/L (5-15); CALCIUM 8.2 mg/dL (8.5-10.1); CHLORIDE 100 mmol/L (98-107); CREATININE 5.41 mg/dL (0.7-1.3)
[2018-08-01 03:46] LABS: ALKALINE PHOSPHATASE 70 U/L (45-117); BILIRUBIN,TOTAL 2.9 mg/dL (0.2-1.0); MEAN CORPUSCULAR HEMOGLOBIN 36.4 pg (27.5-34.5); MEAN CORPUSCULAR HGB CONC 35.2 g/dL (33.2-36.2); MEAN CORPUSCULAR VOLUME 103.5 fL (81-97); RED BLOOD COUNT 1.81 x10^6/uL (4.38-5.82); RED CELL DISTRIBUTION WIDTH 27.5 % (9.4-14.8); TOTAL PROTEIN 6.1 g/dL (6.4-8.2)
[2018-08-01 03:57] LABS: BASOPHILS % (AUTO) 0 % (0-1); EOSINOPHILS # (AUTO) 0.02 x10^3/uL (0-0.4); EOSINOPHILS % (AUTO) 1 % (1-7); LYMPHOCYTES # (AUTO) 0.45 x10^3/uL (1-3.4); LYMPHOCYTES % (AUTO) 16 % (22-44); MD SCAN; MEAN PLATELET VOLUME 9.9 fL (7.4-10.4); MONOCYTES # (AUTO) 0.36 x10^3/uL (0.2-0.8); MONOCYTES % (AUTO) 13 % (2-9); NEUTROPHILS # (AUTO) 1.94 x10^3/uL (1.8-6.8); NEUTROPHILS % (AUTO) 70 % (42-75)
[2018-08-01 03:59] LABS: PLATELET COUNT 39 x10^3/uL (130-400)
[2018-08-01] MEDS ORDERED: VANCOMYCIN 2,000 MG in SODIUM CHLORIDE 0.9% 500 ML IV ONE (04:00)
[2018-08-01] MEDS: OMEPRAZOLE 20 MG CAPSULE.DR PO SCH (06:04)
[2018-08-01] MEDS: INSULIN LISPRO 100 UNITS/ML, PEN SQ-INSULIN SCH ×4 (07:00→21:00)
[2018-08-01] MEDS: SUCRALFATE 1 GM TABLET PO SCH ×4 (08:17→21:43)
[2018-08-01] MEDS: SODIUM CHLORIDE FLUSH 10ML SYR IVF SCH ×2 (09:00→21:44)
[2018-08-01] MEDS: LACTULOSE 10 GM/15 ML UDC PO SCH ×3 (09:26→21:00)
[2018-08-01] MEDS: RIFAXIMIN 550 MG TABLET PO SCH ×2 (09:27→21:43)
[2018-08-01] MEDS: FLUDROCORTISONE 0.1 MG TABLET PO SCH (09:27)
[2018-08-01] MEDS: FOLIC ACID 1 MG TABLET PO SCH (09:27)
[2018-08-01] MEDS: PANTOPROZOLE 40MG TABLET PO SCH ×2 (09:27→21:43)
[2018-08-01] MEDS: MIDODRINE 5 MG TABLET PO SCH ×3 (09:27→21:43)
[2018-08-01 13:38] LABS: OCCULT BLOOD POSITIVE (NEGATIVE)
[2018-08-01] MEDS: INSULIN GLARGINE 100 UNITS/ML, PEN SQ-INSULIN SCH (21:00)
[2018-08-02 01:14] LABS: OCCULT BLOOD POSITIVE (NEGATIVE)
[2018-08-02 02:00] VITALS: BP 82/37
[2018-08-02] MEDS: OMEPRAZOLE 20 MG CAPSULE.DR PO SCH (05:42)
[2018-08-02] MEDS: INSULIN LISPRO 100 UNITS/ML, PEN SQ-INSULIN SCH ×4 (07:00→20:45)
[2018-08-02 07:15] VITALS: BP_SYST 144; BP_SYST 98; BP_DIAS 52; BP_DIAS 76
[2018-08-02] MEDS: LACTULOSE 10 GM/15 ML UDC PO SCH ×3 (08:38→20:35)
[2018-08-02] MEDS: FLUDROCORTISONE 0.1 MG TABLET PO SCH (08:38)
[2018-08-02] MEDS: PANTOPROZOLE 40MG TABLET PO SCH ×2 (08:39→20:33)
[2018-08-02] MEDS: FOLIC ACID 1 MG TABLET PO SCH (08:39)
[2018-08-02] MEDS: RIFAXIMIN 550 MG TABLET PO SCH ×2 (08:39→20:34)
[2018-08-02] MEDS: SUCRALFATE 1 GM TABLET PO SCH ×4 (08:39→20:33)
[2018-08-02] MEDS: MIDODRINE 5 MG TABLET PO SCH ×3 (08:39→20:34)
[2018-08-02] MEDS: SODIUM CHLORIDE FLUSH 10ML SYR IVF SCH ×2 (08:40→20:35)
[2018-08-02 14:00] VITALS: BP 88/57
[2018-08-02] MEDS: DARBEPOETIN 60 MCG/ML SQ SCH (17:57)
[2018-08-02 19:27] VITALS: BP 82/40
[2018-08-02] MEDS: DAPTOMYCIN 500 MG in SODIUM CHLORIDE 0.9% 100 ML IVPB SCH (20:33)
[2018-08-02] MEDS: INSULIN GLARGINE 100 UNITS/ML, PEN SQ-INSULIN SCH (20:49)
[2018-08-03 00:41] VITALS: BP 80/45
[2018-08-03] MEDS: OMEPRAZOLE 20 MG CAPSULE.DR PO SCH (06:09)
[2018-08-03] MEDS: SUCRALFATE 1 GM TABLET PO SCH ×4 (06:09→20:16)
[2018-08-03 06:55] VITALS: BP 84/43
[2018-08-03] MEDS: INSULIN LISPRO 100 UNITS/ML, PEN SQ-INSULIN SCH ×4 (07:00→20:18)
[2018-08-03] MEDS: LACTULOSE 10 GM/15 ML UDC PO SCH ×3 (08:20→20:24)
[2018-08-03] MEDS: PANTOPROZOLE 40MG TABLET PO SCH ×2 (08:21→20:16)
[2018-08-03] MEDS: FOLIC ACID 1 MG TABLET PO SCH (08:21)
[2018-08-03] MEDS: MIDODRINE 5 MG TABLET PO SCH ×3 (08:21→20:16)
[2018-08-03] MEDS: SODIUM CHLORIDE FLUSH 10ML SYR IVF SCH ×2 (08:21→20:18)
[2018-08-03] MEDS: FLUDROCORTISONE 0.1 MG TABLET PO SCH (08:21)
[2018-08-03] MEDS: RIFAXIMIN 550 MG TABLET PO SCH ×2 (08:21→20:16)
[2018-08-03] MEDS: ALBUMIN HUMAN 25% 100 ML IV PRN (15:15)
[2018-08-03 15:57] VITALS: BP 81/33
[2018-08-03 16:01] LABS: ANION GAP 14 mmol/L (5-15); CALCIUM 8.7 mg/dL (8.5-10.1); CHLORIDE 101 mmol/L (98-107); CREATININE 7.76 mg/dL (0.7-1.3)
[2018-08-03 16:05] LABS: MEAN CORPUSCULAR HEMOGLOBIN 35.1 pg (27.5-34.5); MEAN CORPUSCULAR HGB CONC 34.2 g/dL (33.2-36.2); MEAN CORPUSCULAR VOLUME 102.6 fL (81-97); MEAN PLATELET VOLUME 9.7 fL (7.4-10.4); RED BLOOD COUNT 2.06 x10^6/uL (4.38-5.82)
[2018-08-03 16:07] LABS: CREATINE KINASE, TOTAL 17 U/L (39-308)
[2018-08-03 16:26] LABS: BASOPHILS # (AUTO) 0.01 x10^3/uL (0-0.1); BASOPHILS % (AUTO) 0 % (0-1); EOSINOPHILS # (AUTO) 0.11 x10^3/uL (0-0.4); EOSINOPHILS % (AUTO) 3 % (1-7); LYMPHOCYTES # (AUTO) 0.72 x10^3/uL (1-3.4); LYMPHOCYTES % (AUTO) 22 % (22-44); MD SCAN; MONOCYTES % (AUTO) 9 % (2-9); NEUTROPHILS # (AUTO) 2.16 x10^3/uL (1.8-6.8); NEUTROPHILS % (AUTO) 66 % (42-75); RED CELL DISTRIBUTION WIDTH 26.8 % (9.4-14.8)
[2018-08-03 16:29] LABS: PLATELET COUNT 33 x10^3/uL (130-400)
[2018-08-03] MEDS: INSULIN GLARGINE 100 UNITS/ML, PEN SQ-INSULIN SCH (20:23)
[2018-08-03 20:49] VITALS: BP 88/52
[2018-08-04 01:44] VITALS: BP 89/50
[2018-08-04 05:39] LABS: MEAN CORPUSCULAR HEMOGLOBIN 36.1 pg (27.5-34.5); MEAN CORPUSCULAR HGB CONC 34.6 g/dL (33.2-36.2); MEAN CORPUSCULAR VOLUME 104.5 fL (81-97); MEAN PLATELET VOLUME 9.1 fL (7.4-10.4); RED BLOOD COUNT 2.13 x10^6/uL (4.38-5.82); RED CELL DISTRIBUTION WIDTH 27.4 % (9.4-14.8)
[2018-08-04 05:43] LABS: ANION GAP 10 mmol/L (5-15); CALCIUM 8.6 mg/dL (8.5-10.1); CHLORIDE 103 mmol/L (98-107); PLATELET COUNT 31 x10^3/uL (130-400)
[2018-08-04 05:44] LABS: CREATININE 5.67 mg/dL (0.7-1.3)
[2018-08-04 06:25] LABS: BASOPHILS # (AUTO) 0.02 x10^3/uL (0-0.1); BASOPHILS % (AUTO) 1 % (0-1); EOSINOPHILS # (AUTO) 0.11 x10^3/uL (0-0.4); EOSINOPHILS % (AUTO) 3 % (1-7); LYMPHOCYTES # (AUTO) 0.86 x10^3/uL (1-3.4); LYMPHOCYTES % (AUTO) 24 % (22-44); MD SCAN; MONOCYTES # (AUTO) 0.32 x10^3/uL (0.2-0.8); MONOCYTES % (AUTO) 9 % (2-9); NEUTROPHILS # (AUTO) 2.22 x10^3/uL (1.8-6.8); NEUTROPHILS % (AUTO) 63 % (42-75)
[2018-08-04] MEDS: INSULIN LISPRO 100 UNITS/ML, PEN SQ-INSULIN SCH ×4 (07:00→20:54)
[2018-08-04 07:07] VITALS: BP 80/34
[2018-08-04] MEDS: FLUDROCORTISONE 0.1 MG TABLET PO SCH (07:41)
[2018-08-04] MEDS: MIDODRINE 5 MG TABLET PO SCH ×3 (07:41→20:55)
[2018-08-04] MEDS: RIFAXIMIN 550 MG TABLET PO SCH ×2 (07:42→20:54)
[2018-08-04] MEDS: PANTOPROZOLE 40MG TABLET PO SCH ×2 (07:42→20:55)
[2018-08-04] MEDS: SODIUM CHLORIDE FLUSH 10ML SYR IVF SCH ×2 (07:42→20:55)
[2018-08-04] MEDS: LACTULOSE 10 GM/15 ML UDC PO SCH ×3 (07:42→20:55)
[2018-08-04] MEDS: FOLIC ACID 1 MG TABLET PO SCH (07:42)
[2018-08-04] MEDS: SUCRALFATE 1 GM TABLET PO SCH ×4 (07:42→20:54)
[2018-08-04 12:32] VITALS: BP 74/37
[2018-08-04] MEDS ORDERED: OMNIPAQUE 350 MG/ML, 100ML BOTTLE ONE (14:11)
[2018-08-04] MEDS: DAPTOMYCIN 500 MG in SODIUM CHLORIDE 0.9% 100 ML IVPB SCH (19:33)
[2018-08-04 19:59] VITALS: BP 120/69
[2018-08-04] MEDS: INSULIN GLARGINE 100 UNITS/ML, PEN SQ-INSULIN SCH (20:54)
[2018-08-05] VITALS (7 sets, daily range): BP systolic 87–112; BP diastolic 29–62
[2018-08-05] MEDS ORDERED: PROPOFOL 10 MG/ML, 50ML ONE (08:09)
[2018-08-05] MEDS ORDERED: hydrALAzine 20 MG/ML, 1ML IV PRN (09:30)
[2018-08-05] MEDS ORDERED: HALOPERIDOL 5 MG/ML IV PRN (09:30)
[2018-08-05] MEDS ORDERED: PROMETHAZINE 25 MG/ML, 1ML IV PRN (09:30)
[2018-08-05] MEDS ORDERED: ALBUTEROL SULFATE 2.5 MG/3 ML NPPB PRN (09:30)
[2018-08-05] MEDS ORDERED: FENTANYL PF 100 MCG/2ML IV PRN (09:30)
[2018-08-05] MEDS ORDERED: HYDROmorphone 2 MG/ML, 1ML IVPush PRN (09:30)
[2018-08-05] MEDS ORDERED: OXYcodone 5 MG/5 ML ORAL.SOL UDC PO PRN (09:30)
[2018-08-05] MEDS ORDERED: LABETALOL 5MG/ML, 20ML IV PRN (09:30)
[2018-08-05] MEDS: FOLIC ACID 1 MG TABLET PO SCH (09:50)
[2018-08-05] MEDS: RIFAXIMIN 550 MG TABLET PO SCH ×2 (09:50→21:22)
[2018-08-05] MEDS: PANTOPROZOLE 40MG TABLET PO SCH ×2 (09:50→21:22)
[2018-08-05] MEDS: SUCRALFATE 1 GM TABLET PO SCH ×4 (09:50→21:22)
[2018-08-05] MEDS: SODIUM CHLORIDE FLUSH 10ML SYR IVF SCH ×2 (09:51→21:32)
[2018-08-05] MEDS: FLUDROCORTISONE 0.1 MG TABLET PO SCH (09:51)
[2018-08-05] MEDS: INSULIN LISPRO 100 UNITS/ML, PEN SQ-INSULIN SCH ×4 (09:51→21:24)
[2018-08-05] MEDS: MIDODRINE 5 MG TABLET PO SCH ×3 (09:51→21:22)
[2018-08-05] MEDS: LACTULOSE 10 GM/15 ML UDC PO SCH ×3 (09:51→21:22)
[2018-08-05] MEDS: ALBUMIN HUMAN 25% 100 ML IV PRN ×2 (15:20→16:14)
[2018-08-05 16:12] LABS: MEAN CORPUSCULAR HEMOGLOBIN 36.2 pg (27.5-34.5); MEAN CORPUSCULAR HGB CONC 34.7 g/dL (33.2-36.2); MEAN CORPUSCULAR VOLUME 104.3 fL (81-97); MEAN PLATELET VOLUME 8.7 fL (7.4-10.4); RED BLOOD COUNT 1.79 x10^6/uL (4.38-5.82)
[2018-08-05 16:13] LABS: INTERNATIONAL NORMALIZED RATIO 1.43 (0.93-1.1)
[2018-08-05 16:14] LABS: ALANINE AMINOTRANSFERASE 10 U/L (12-78); ALBUMIN 3.4 g/dL (3.4-5.0); ANION GAP 14 mmol/L (5-15); CALCIUM 8.2 mg/dL (8.5-10.1); CHLORIDE 103 mmol/L (98-107); CREATININE 5.54 mg/dL (0.7-1.3); PLATELET COUNT 30 x10^3/uL (130-400)
[2018-08-05 16:16] LABS: ALKALINE PHOSPHATASE 78 U/L (45-117); BILIRUBIN,TOTAL 1.7 mg/dL (0.2-1.0); TOTAL PROTEIN 5.6 g/dL (6.4-8.2)
[2018-08-05 16:33] LABS: ANISOCYTOSIS 1+; BASOPHILS # (AUTO) 0.02 x10^3/uL (0-0.1); BASOPHILS % (AUTO) 1 % (0-1); EOSINOPHILS # (AUTO) 0.04 x10^3/uL (0-0.4); EOSINOPHILS % (AUTO) 2 % (1-7); LYMPHOCYTES # (AUTO) 0.57 x10^3/uL (1-3.4); LYMPHOCYTES % (AUTO) 24 % (22-44); MD MORPH REVIEW ONLY; MONOCYTES # (AUTO) 0.19 x10^3/uL (0.2-0.8); MONOCYTES % (AUTO) 8 % (2-9); NEUTROPHILS # (AUTO) 1.54 x10^3/uL (1.8-6.8); NEUTROPHILS % (AUTO) 65 % (42-75); OVALOCYTES 1+; SCHISTOCYTES 1+; TEAR DROPS 1+
[2018-08-05 16:34] LABS: <PLATELET ESTIMATE> DECREASED; <PLT MORPHOLOGY> NORMAL PLT MORPH
[2018-08-05] MEDS: INSULIN GLARGINE 100 UNITS/ML, PEN SQ-INSULIN SCH (21:31)
[2018-08-06 04:40] VITALS: BP 104/56
[2018-08-06 05:34] LABS: MEAN CORPUSCULAR HEMOGLOBIN 35.9 pg (27.5-34.5); MEAN CORPUSCULAR HGB CONC 34.8 g/dL (33.2-36.2); MEAN CORPUSCULAR VOLUME 103.1 fL (81-97); MEAN PLATELET VOLUME 8.9 fL (7.4-10.4); RED BLOOD COUNT 1.95 x10^6/uL (4.38-5.82); RED CELL DISTRIBUTION WIDTH 26.1 % (9.4-14.8)
[2018-08-06 05:40] LABS: ANION GAP 12 mmol/L (5-15); CALCIUM 8.7 mg/dL (8.5-10.1); CHLORIDE 106 mmol/L (98-107)
[2018-08-06 05:41] LABS: PLATELET COUNT 30 x10^3/uL (130-400)
[2018-08-06 05:58] LABS: BASOPHILS # (AUTO) 0.01 x10^3/uL (0-0.1); BASOPHILS % (AUTO) 0 % (0-1); EOSINOPHILS # (AUTO) 0.06 x10^3/uL (0-0.4); EOSINOPHILS % (AUTO) 2 % (1-7); LYMPHOCYTES # (AUTO) 0.68 x10^3/uL (1-3.4); LYMPHOCYTES % (AUTO) 25 % (22-44); MD SCAN; MONOCYTES # (AUTO) 0.25 x10^3/uL (0.2-0.8); MONOCYTES % (AUTO) 9 % (2-9); NEUTROPHILS # (AUTO) 1.76 x10^3/uL (1.8-6.8); NEUTROPHILS % (AUTO) 64 % (42-75)
[2018-08-06 07:00] VITALS: BP 98/68
[2018-08-06] MEDS: INSULIN LISPRO 100 UNITS/ML, PEN SQ-INSULIN SCH ×4 (07:22→20:41)
[2018-08-06] MEDS: PANTOPROZOLE 40MG TABLET PO SCH ×2 (08:40→20:49)
[2018-08-06] MEDS: LACTULOSE 10 GM/15 ML UDC PO SCH ×3 (08:40→20:59)
[2018-08-06] MEDS: MIDODRINE 5 MG TABLET PO SCH ×3 (08:40→20:50)
[2018-08-06] MEDS: FLUDROCORTISONE 0.1 MG TABLET PO SCH (08:40)
[2018-08-06] MEDS: RIFAXIMIN 550 MG TABLET PO SCH ×2 (08:41→20:49)
[2018-08-06] MEDS: SODIUM CHLORIDE FLUSH 10ML SYR IVF SCH ×2 (08:41→20:52)
[2018-08-06] MEDS: SUCRALFATE 1 GM TABLET PO SCH ×4 (08:41→20:49)
[2018-08-06] MEDS: FOLIC ACID 1 MG TABLET PO SCH (08:41)
[2018-08-06 13:30] VITALS: BP 109/81
[2018-08-06] MEDS: CEPHALEXIN 500 MG CAPSULE PO SCH (16:18)
[2018-08-06 19:38] VITALS: BP 98/56
[2018-08-06] MEDS: INSULIN GLARGINE 100 UNITS/ML, PEN SQ-INSULIN SCH (20:51)
[2018-08-07 01:49] VITALS: BP 92/49
[2018-08-07 05:44] LABS: MEAN CORPUSCULAR HEMOGLOBIN 35.6 pg (27.5-34.5); MEAN CORPUSCULAR HGB CONC 34.4 g/dL (33.2-36.2); MEAN CORPUSCULAR VOLUME 103.3 fL (81-97); MEAN PLATELET VOLUME 9.6 fL (7.4-10.4); RED BLOOD COUNT 2.14 x10^6/uL (4.38-5.82); RED CELL DISTRIBUTION WIDTH 25.7 % (9.4-14.8)
[2018-08-07 05:46] LABS: ANION GAP 13 mmol/L (5-15); CALCIUM 9.1 mg/dL (8.5-10.1); CHLORIDE 103 mmol/L (98-107); CREATININE 7.22 mg/dL (0.7-1.3)
[2018-08-07 05:52] LABS: PLATELET COUNT 48 x10^3/uL (130-400)
[2018-08-07 06:18] LABS: BASOPHILS # (AUTO) 0.03 x10^3/uL (0-0.1); BASOPHILS % (AUTO) 1 % (0-1); EOSINOPHILS # (AUTO) 0.13 x10^3/uL (0-0.4); EOSINOPHILS % (AUTO) 2 % (1-7); LYMPHOCYTES # (AUTO) 1.35 x10^3/uL (1-3.4); LYMPHOCYTES % (AUTO) 23 % (22-44); MD SCAN; MONOCYTES # (AUTO) 0.34 x10^3/uL (0.2-0.8); MONOCYTES % (AUTO) 6 % (2-9); NEUTROPHILS # (AUTO) 3.91 x10^3/uL (1.8-6.8); NEUTROPHILS % (AUTO) 68 % (42-75)
[2018-08-07 06:55] VITALS: BP 127/85
[2018-08-07] MEDS: INSULIN LISPRO 100 UNITS/ML, PEN SQ-INSULIN SCH ×4 (07:00→23:11)
[2018-08-07] MEDS: MIDODRINE 5 MG TABLET PO SCH ×3 (07:59→23:12)
[2018-08-07] MEDS: SODIUM CHLORIDE FLUSH 10ML SYR IVF SCH ×2 (09:00→23:13)
[2018-08-07] MEDS: ALBUMIN HUMAN 25% 100 ML IV PRN ×2 (09:00→11:31)
[2018-08-07] MEDS: SUCRALFATE 1 GM TABLET PO SCH ×4 (11:00→23:12)
[2018-08-07 14:00] VITALS: BP 93/55
[2018-08-07] MEDS: LACTULOSE 10 GM/15 ML UDC PO SCH ×3 (14:04→21:00)
[2018-08-07] MEDS: PANTOPROZOLE 40MG TABLET PO SCH ×2 (14:04→23:12)
[2018-08-07] MEDS: FOLIC ACID 1 MG TABLET PO SCH (14:05)
[2018-08-07] MEDS: CEPHALEXIN 500 MG CAPSULE PO SCH (14:05)
[2018-08-07] MEDS: FLUDROCORTISONE 0.1 MG TABLET PO SCH (14:05)
[2018-08-07] MEDS: RIFAXIMIN 550 MG TABLET PO SCH ×2 (14:05→23:12)
[2018-08-07 15:12] VITALS: BP 101/57
[2018-08-07] MEDS ORDERED: DAPTOMYCIN 1,000 MG in SODIUM CHLORIDE 0.9% 100 ML IVPB ONE (18:00)
[2018-08-07 21:12] VITALS: BP 84/50
[2018-08-07] MEDS: INSULIN GLARGINE 100 UNITS/ML, PEN SQ-INSULIN SCH (23:11)
[2018-08-08 00:28] VITALS: BP 91/45
[2018-08-08 05:27] LABS: MEAN CORPUSCULAR HEMOGLOBIN 36.5 pg (27.5-34.5); MEAN CORPUSCULAR HGB CONC 34.9 g/dL (33.2-36.2); MEAN CORPUSCULAR VOLUME 104.8 fL (81-97); MEAN PLATELET VOLUME 9.1 fL (7.4-10.4); RED BLOOD COUNT 1.92 x10^6/uL (4.38-5.82); RED CELL DISTRIBUTION WIDTH 25.8 % (9.4-14.8)
[2018-08-08 05:39] LABS: ANION GAP 11 mmol/L (5-15); CALCIUM 8.9 mg/dL (8.5-10.1); CHLORIDE 106 mmol/L (98-107)
[2018-08-08 05:42] LABS: CREATININE 5.14 mg/dL (0.7-1.3)
[2018-08-08 05:47] LABS: PLATELET COUNT 36 x10^3/uL (130-400)
[2018-08-08 06:01] LABS: BASOPHILS # (AUTO) 0.01 x10^3/uL (0-0.1); BASOPHILS % (AUTO) 0 % (0-1); EOSINOPHILS # (AUTO) 0.05 x10^3/uL (0-0.4); EOSINOPHILS % (AUTO) 1 % (1-7); LYMPHOCYTES # (AUTO) 1.02 x10^3/uL (1-3.4); LYMPHOCYTES % (AUTO) 26 % (22-44); MD SCAN; MONOCYTES # (AUTO) 0.25 x10^3/uL (0.2-0.8); MONOCYTES % (AUTO) 6 % (2-9); NEUTROPHILS # (AUTO) 2.63 x10^3/uL (1.8-6.8); NEUTROPHILS % (AUTO) 66 % (42-75)
[2018-08-08] MEDS: INSULIN LISPRO 100 UNITS/ML, PEN SQ-INSULIN SCH ×4 (07:00→21:00)
[2018-08-08 07:34] VITALS: BP 105/57
[2018-08-08] MEDS: LACTULOSE 10 GM/15 ML UDC PO SCH ×4 (09:00→21:00)
[2018-08-08] MEDS: SODIUM CHLORIDE FLUSH 10ML SYR IVF SCH ×2 (09:00→21:00)
[2018-08-08] MEDS: RIFAXIMIN 550 MG TABLET PO SCH ×2 (10:49→22:42)
[2018-08-08] MEDS: SUCRALFATE 1 GM TABLET PO SCH ×4 (10:50→22:42)
[2018-08-08] MEDS: FOLIC ACID 1 MG TABLET PO SCH (10:50)
[2018-08-08] MEDS: FLUDROCORTISONE 0.1 MG TABLET PO SCH (10:50)
[2018-08-08] MEDS: MIDODRINE 5 MG TABLET PO SCH ×3 (10:50→22:42)
[2018-08-08] MEDS: PANTOPROZOLE 40MG TABLET PO SCH ×2 (10:51→22:42)
[2018-08-08] MEDS ORDERED: VANCOMYCIN PER PHARMACY MC PRN (11:30)
[2018-08-08] MEDS ORDERED: PHARMACOKINETIC MONITORING MC PRN (12:30)
[2018-08-08] MEDS ORDERED: PHARMACOKINETIC CONSULTATION MC ONE (12:30)
[2018-08-08 13:49] VITALS: BP 103/55
[2018-08-08] MEDS: CEPHALEXIN 500 MG CAPSULE PO SCH (14:07)
[2018-08-08 14:09] VITALS: BP 93/52
[2018-08-08 19:43] VITALS: BP 82/45
[2018-08-08] MEDS: INSULIN GLARGINE 100 UNITS/ML, PEN SQ-INSULIN SCH (22:42)
[2018-08-09 01:58] VITALS: BP 96/57
[2018-08-09 05:39] LABS: ANION GAP 9 mmol/L (5-15); CALCIUM 8.9 mg/dL (8.5-10.1); CHLORIDE 106 mmol/L (98-107); CREATININE 7.19 mg/dL (0.7-1.3)
[2018-08-09] MEDS: INSULIN LISPRO 100 UNITS/ML, PEN SQ-INSULIN SCH ×4 (07:00→20:50)
[2018-08-09 08:11] VITALS: BP 88/54
[2018-08-09] MEDS: SODIUM CHLORIDE FLUSH 10ML SYR IVF SCH ×2 (09:00→20:41)
[2018-08-09] MEDS: LACTULOSE 10 GM/15 ML UDC PO SCH ×3 (09:40→20:42)
[2018-08-09] MEDS: MIDODRINE 5 MG TABLET PO SCH ×3 (09:40→20:43)
[2018-08-09] MEDS: SUCRALFATE 1 GM TABLET PO SCH ×4 (09:41→20:42)
[2018-08-09] MEDS: FOLIC ACID 1 MG TABLET PO SCH (09:41)
[2018-08-09] MEDS: RIFAXIMIN 550 MG TABLET PO SCH ×2 (09:41→20:42)
[2018-08-09] MEDS: PANTOPROZOLE 40MG TABLET PO SCH ×2 (09:41→20:42)
[2018-08-09] MEDS: FLUDROCORTISONE 0.1 MG TABLET PO SCH (09:41)
[2018-08-09 14:45] VITALS: BP 97/60
[2018-08-09] MEDS: CEPHALEXIN 500 MG CAPSULE PO SCH (16:57)
[2018-08-09] MEDS: DARBEPOETIN 60 MCG/ML SQ SCH (18:09)
[2018-08-09 20:49] VITALS: BP 88/46
[2018-08-09] MEDS: INSULIN GLARGINE 100 UNITS/ML, PEN SQ-INSULIN SCH (21:05)
[2018-08-10 02:00] VITALS: BP 89/42
[2018-08-10 02:34] VITALS: BP 87/41
[2018-08-10] MEDS: INSULIN LISPRO 100 UNITS/ML, PEN SQ-INSULIN SCH ×4 (07:00→20:50)
[2018-08-10] MEDS: SUCRALFATE 1 GM TABLET PO SCH ×4 (07:00→20:52)
[2018-08-10 07:40] VITALS: BP 92/54
[2018-08-10] MEDS: MIDODRINE 5 MG TABLET PO SCH ×3 (08:10→20:53)
[2018-08-10] MEDS: LACTULOSE 10 GM/15 ML UDC PO SCH ×3 (09:00→20:52)
[2018-08-10] MEDS: SODIUM CHLORIDE FLUSH 10ML SYR IVF SCH ×2 (09:00→20:51)
[2018-08-10 10:39] LABS: ANION GAP 9 mmol/L (5-15); CALCIUM 8.8 mg/dL (8.5-10.1); CHLORIDE 105 mmol/L (98-107); CREATININE 5.08 mg/dL (0.7-1.3)
[2018-08-10] MEDS: ALBUMIN HUMAN 25% 100 ML IV PRN (12:07)
[2018-08-10] MEDS: RIFAXIMIN 550 MG TABLET PO SCH ×2 (13:06→20:54)
[2018-08-10] MEDS: FLUDROCORTISONE 0.1 MG TABLET PO SCH (13:07)
[2018-08-10] MEDS: FOLIC ACID 1 MG TABLET PO SCH (13:07)
[2018-08-10] MEDS: PANTOPROZOLE 40MG TABLET PO SCH ×2 (13:07→20:54)
[2018-08-10 14:14] VITALS: BP 93/55
[2018-08-10] MEDS: CEPHALEXIN 500 MG CAPSULE PO SCH (15:55)
[2018-08-10] MEDS: VANCOMYCIN 2,000 MG in SODIUM CHLORIDE 0.9% 500 ML IV SCH (17:56)
[2018-08-10 20:02] VITALS: BP 104/58
[2018-08-10] MEDS: ACETAMINOPHEN 325 MG TABLET PO PRN (20:54)
[2018-08-10] MEDS: INSULIN GLARGINE 100 UNITS/ML, PEN SQ-INSULIN SCH (21:18)
[2018-08-11] VITALS (8 sets, daily range): BP systolic 71–144; BP diastolic 31–68
[2018-08-11 05:12] LABS: MEAN CORPUSCULAR HEMOGLOBIN 36.3 pg (27.5-34.5); MEAN CORPUSCULAR HGB CONC 34.4 g/dL (33.2-36.2); MEAN CORPUSCULAR VOLUME 105.4 fL (81-97); RED BLOOD COUNT 1.73 x10^6/uL (4.38-5.82); RED CELL DISTRIBUTION WIDTH 25.9 % (9.4-14.8)
[2018-08-11 05:15] LABS: ANION GAP 10 mmol/L (5-15); CALCIUM 8.6 mg/dL (8.5-10.1); CHLORIDE 106 mmol/L (98-107); CREATININE 6.59 mg/dL (0.7-1.3)
[2018-08-11 05:45] LABS: BASOPHILS # (AUTO) 0.01 x10^3/uL (0-0.1); BASOPHILS % (AUTO) 1 % (0-1); EOSINOPHILS # (AUTO) 0.05 x10^3/uL (0-0.4); EOSINOPHILS % (AUTO) 2 % (1-7); LYMPHOCYTES # (AUTO) 0.76 x10^3/uL (1-3.4); LYMPHOCYTES % (AUTO) 26 % (22-44); MD SCAN; MEAN PLATELET VOLUME 9.2 fL (7.4-10.4); MONOCYTES # (AUTO) 0.31 x10^3/uL (0.2-0.8); MONOCYTES % (AUTO) 11 % (2-9); NEUTROPHILS # (AUTO) 1.74 x10^3/uL (1.8-6.8); NEUTROPHILS % (AUTO) 60 % (42-75)
[2018-08-11 05:54] LABS: PLATELET COUNT 27 x10^3/uL (130-400)
[2018-08-11] MEDS: SUCRALFATE 1 GM TABLET PO SCH ×4 (05:56→20:27)
[2018-08-11] MEDS: INSULIN LISPRO 100 UNITS/ML, PEN SQ-INSULIN SCH ×4 (07:00→20:10)
[2018-08-11] MEDS: SODIUM CHLORIDE FLUSH 10ML SYR IVF SCH ×2 (09:00→20:29)
[2018-08-11] MEDS: FLUDROCORTISONE 0.1 MG TABLET PO SCH (10:56)
[2018-08-11] MEDS: MIDODRINE 5 MG TABLET PO SCH ×3 (10:56→20:28)
[2018-08-11] MEDS: PANTOPROZOLE 40MG TABLET PO SCH ×2 (10:56→20:28)
[2018-08-11] MEDS: RIFAXIMIN 550 MG TABLET PO SCH ×2 (10:56→20:28)
[2018-08-11] MEDS: FOLIC ACID 1 MG TABLET PO SCH (10:56)
[2018-08-11] MEDS: LACTULOSE 10 GM/15 ML UDC PO SCH ×3 (10:56→20:29)
[2018-08-11] MEDS: CEPHALEXIN 500 MG CAPSULE PO SCH (17:51)
[2018-08-11] MEDS: INSULIN GLARGINE 100 UNITS/ML, PEN SQ-INSULIN SCH (20:29)
[2018-08-12] VITALS (7 sets, daily range): BP systolic 87–118; BP diastolic 35–61
[2018-08-12] MEDS: INSULIN LISPRO 100 UNITS/ML, PEN SQ-INSULIN SCH ×4 (07:00→21:00)
[2018-08-12] MEDS: FLUDROCORTISONE 0.1 MG TABLET PO SCH (09:50)
[2018-08-12] MEDS: RIFAXIMIN 550 MG TABLET PO SCH ×2 (09:50→23:06)
[2018-08-12] MEDS: LACTULOSE 10 GM/15 ML UDC PO SCH ×3 (09:50→21:00)
[2018-08-12] MEDS: MIDODRINE 5 MG TABLET PO SCH ×3 (09:50→23:06)
[2018-08-12] MEDS: FOLIC ACID 1 MG TABLET PO SCH (09:51)
[2018-08-12] MEDS: SODIUM CHLORIDE FLUSH 10ML SYR IVF SCH ×2 (09:51→23:07)
[2018-08-12] MEDS: SUCRALFATE 1 GM TABLET PO SCH ×4 (09:51→23:06)
[2018-08-12] MEDS: PANTOPROZOLE 40MG TABLET PO SCH ×2 (09:51→23:06)
[2018-08-12] MEDS: ALBUMIN HUMAN 25% 100 ML IV PRN ×2 (15:42→16:49)
[2018-08-12 17:41] LABS: MEAN CORPUSCULAR HEMOGLOBIN 36.1 pg (27.5-34.5); MEAN CORPUSCULAR HGB CONC 34.9 g/dL (33.2-36.2); MEAN CORPUSCULAR VOLUME 103.2 fL (81-97); RED BLOOD COUNT 1.92 x10^6/uL (4.38-5.82); RED CELL DISTRIBUTION WIDTH 26.5 % (9.4-14.8)
[2018-08-12 17:42] LABS: ANION GAP 8 mmol/L (5-15); CALCIUM 8.6 mg/dL (8.5-10.1); CHLORIDE 105 mmol/L (98-107); CREATININE 3.61 mg/dL (0.7-1.3)
[2018-08-12 17:46] LABS: PLATELET COUNT 33 x10^3/uL (130-400)
[2018-08-12 17:59] LABS: BASOPHILS # (AUTO) 0.04 x10^3/uL (0-0.1); BASOPHILS % (AUTO) 1 % (0-1); EOSINOPHILS # (AUTO) 0.04 x10^3/uL (0-0.4); EOSINOPHILS % (AUTO) 1 % (1-7); LYMPHOCYTES # (AUTO) 0.61 x10^3/uL (1-3.4); LYMPHOCYTES % (AUTO) 17 % (22-44); MD SCAN; MONOCYTES # (AUTO) 0.21 x10^3/uL (0.2-0.8); MONOCYTES % (AUTO) 6 % (2-9); NEUTROPHILS # (AUTO) 2.58 x10^3/uL (1.8-6.8); NEUTROPHILS % (AUTO) 74 % (42-75)
[2018-08-12] MEDS: CEPHALEXIN 500 MG CAPSULE PO SCH (18:33)
[2018-08-12] MEDS: VANCOMYCIN 2,000 MG in SODIUM CHLORIDE 0.9% 500 ML IV SCH (18:33)
[2018-08-12] MEDS: INSULIN GLARGINE 100 UNITS/ML, PEN SQ-INSULIN SCH (23:29)
[2018-08-13 01:17] VITALS: BP 93/54
[2018-08-13 01:18] VITALS: BP 93/54
[2018-08-13] MEDS: INSULIN LISPRO 100 UNITS/ML, PEN SQ-INSULIN SCH ×4 (07:00→21:00)
[2018-08-13 08:00] VITALS: BP 94/57
[2018-08-13] MEDS: PANTOPROZOLE 40MG TABLET PO SCH ×2 (08:58→21:39)
[2018-08-13] MEDS: FOLIC ACID 1 MG TABLET PO SCH (08:58)
[2018-08-13] MEDS: RIFAXIMIN 550 MG TABLET PO SCH ×2 (08:58→21:39)
[2018-08-13] MEDS: SUCRALFATE 1 GM TABLET PO SCH ×4 (08:58→21:39)
[2018-08-13] MEDS: SODIUM CHLORIDE FLUSH 10ML SYR IVF SCH ×2 (08:59→21:52)
[2018-08-13] MEDS: MIDODRINE 5 MG TABLET PO SCH ×3 (08:59→21:40)
[2018-08-13] MEDS: FLUDROCORTISONE 0.1 MG TABLET PO SCH (08:59)
[2018-08-13] MEDS: LACTULOSE 10 GM/15 ML UDC PO SCH ×3 (09:00→21:00)
[2018-08-13 12:44] VITALS: BP 86/52
[2018-08-13] MEDS: CEPHALEXIN 500 MG CAPSULE PO SCH (17:49)
[2018-08-13 18:20] VITALS: BP 96/47
[2018-08-13] MEDS: INSULIN GLARGINE 100 UNITS/ML, PEN SQ-INSULIN SCH (21:52)
[2018-08-14] VITALS: BP 90/52
[2018-08-14 06:29] LABS: CALCIUM 8.8 mg/dL (8.5-10.1); CHLORIDE 104 mmol/L (98-107)
[2018-08-14 06:36] LABS: ALANINE AMINOTRANSFERASE 11 U/L (12-78); ALBUMIN 3.5 g/dL (3.4-5.0); ALKALINE PHOSPHATASE 75 U/L (45-117); ANION GAP 8 mmol/L (5-15); BILIRUBIN,TOTAL 2.6 mg/dL (0.2-1.0); CREATININE 7.21 mg/dL (0.7-1.3); TOTAL PROTEIN 5.7 g/dL (6.4-8.2)
[2018-08-14 06:53] VITALS: BP 96/60
[2018-08-14] MEDS: INSULIN LISPRO 100 UNITS/ML, PEN SQ-INSULIN SCH ×4 (07:00→20:04)
[2018-08-14 07:15] LABS: MEAN CORPUSCULAR HEMOGLOBIN 35.7 pg (27.5-34.5); MEAN CORPUSCULAR HGB CONC 34.9 g/dL (33.2-36.2); MEAN CORPUSCULAR VOLUME 102.5 fL (81-97); MEAN PLATELET VOLUME 8.5 fL (7.4-10.4); RED BLOOD COUNT 2.08 x10^6/uL (4.38-5.82); RED CELL DISTRIBUTION WIDTH 26.6 % (9.4-14.8)
[2018-08-14 07:19] LABS: MD YES
[2018-08-14 07:44] LABS: BAND#(MANUAL) 0.07 x10^3/uL; BANDS%(MANUAL) 2 % (0-7); LYMPH#(MANUAL) 0.52 x10^3/uL (1-3.4); LYMPHS% (MANUAL) 14 % (22-44); MONOS#(MANUAL) 0.07 x10^3/uL (0.3-2.7); MONOS% (MANUAL) 2 % (2-9); SEG#(MANUAL) 3.03 x10^3/uL (1.8-6.8); SEGS% (MANUAL) 82 % (42-75)
[2018-08-14 07:50] LABS: ANISOCYTOSIS 2+
[2018-08-14 07:51] LABS: HYPOCHROMIA 1+
[2018-08-14 07:52] LABS: TEAR DROPS 1+
[2018-08-14 07:55] LABS: PLATELET COUNT 30 x10^3/uL (130-400)
[2018-08-14 07:57] LABS: <PLATELET ESTIMATE> DECREASED; <PLT MORPHOLOGY> NORMAL PLT MORPH
[2018-08-14] MEDS: RIFAXIMIN 550 MG TABLET PO SCH ×2 (08:42→21:55)
[2018-08-14] MEDS: SUCRALFATE 1 GM TABLET PO SCH ×4 (08:42→21:55)
[2018-08-14] MEDS: PANTOPROZOLE 40MG TABLET PO SCH ×2 (08:42→21:55)
[2018-08-14] MEDS: SODIUM CHLORIDE FLUSH 10ML SYR IVF SCH ×2 (08:42→21:56)
[2018-08-14] MEDS: LACTULOSE 10 GM/15 ML UDC PO SCH ×4 (08:42→21:55)
[2018-08-14] MEDS: FLUDROCORTISONE 0.1 MG TABLET PO SCH (08:43)
[2018-08-14] MEDS: FOLIC ACID 1 MG TABLET PO SCH (08:43)
[2018-08-14] MEDS: MIDODRINE 5 MG TABLET PO SCH ×3 (08:43→21:55)
[2018-08-14 13:26] VITALS: BP 92/54
[2018-08-14 18:55] VITALS: BP 95/51
[2018-08-14] MEDS: INSULIN GLARGINE 100 UNITS/ML, PEN SQ-INSULIN SCH (20:04)
[2018-08-14] MEDS: DIPHENHYDRAMINE 25 MG CAPSULE PO PRN (21:55)
[2018-08-15 00:26] VITALS: BP 92/53
[2018-08-15 06:06] LABS: CHLORIDE 106 mmol/L (98-107)
[2018-08-15 06:08] LABS: MEAN CORPUSCULAR HEMOGLOBIN 35.8 pg (27.5-34.5); MEAN CORPUSCULAR HGB CONC 34.7 g/dL (33.2-36.2); MEAN CORPUSCULAR VOLUME 103.3 fL (81-97); MEAN PLATELET VOLUME 9.6 fL (7.4-10.4); RED BLOOD COUNT 2.06 x10^6/uL (4.38-5.82); RED CELL DISTRIBUTION WIDTH 26.5 % (9.4-14.8)
[2018-08-15] MEDS: SUCRALFATE 1 GM TABLET PO SCH ×4 (06:11→21:52)
[2018-08-15 06:16] LABS: ALANINE AMINOTRANSFERASE 13 U/L (12-78); ALBUMIN 3.6 g/dL (3.4-5.0); ALKALINE PHOSPHATASE 85 U/L (45-117); ANION GAP 8 mmol/L (5-15); BILIRUBIN,TOTAL 2.6 mg/dL (0.2-1.0); CALCIUM 8.9 mg/dL (8.5-10.1); TOTAL PROTEIN 5.8 g/dL (6.4-8.2)
[2018-08-15 06:17] LABS: PLATELET COUNT 38 x10^3/uL (130-400)
[2018-08-15 06:32] LABS: BASOPHILS # (AUTO) 0.03 x10^3/uL (0-0.1); BASOPHILS % (AUTO) 1 % (0-1); EOSINOPHILS # (AUTO) 0.14 x10^3/uL (0-0.4); EOSINOPHILS % (AUTO) 3 % (1-7); LYMPHOCYTES # (AUTO) 0.94 x10^3/uL (1-3.4); LYMPHOCYTES % (AUTO) 21 % (22-44); MD SCAN; MONOCYTES # (AUTO) 0.39 x10^3/uL (0.2-0.8); MONOCYTES % (AUTO) 9 % (2-9); NEUTROPHILS # (AUTO) 3.01 x10^3/uL (1.8-6.8); NEUTROPHILS % (AUTO) 67 % (42-75)
[2018-08-15 06:43] VITALS: BP 95/54
[2018-08-15] MEDS: INSULIN LISPRO 100 UNITS/ML, PEN SQ-INSULIN SCH ×4 (07:00→21:53)
[2018-08-15] MEDS: LACTULOSE 10 GM/15 ML UDC PO SCH ×3 (07:53→21:53)
[2018-08-15] MEDS: SODIUM CHLORIDE FLUSH 10ML SYR IVF SCH ×2 (09:00→21:53)
[2018-08-15] MEDS: PANTOPROZOLE 40MG TABLET PO SCH ×2 (09:00→21:52)
[2018-08-15] MEDS: FOLIC ACID 1 MG TABLET PO SCH (10:18)
[2018-08-15] MEDS: FLUDROCORTISONE 0.1 MG TABLET PO SCH (10:18)
[2018-08-15] MEDS: RIFAXIMIN 550 MG TABLET PO SCH ×2 (10:19→21:52)
[2018-08-15] MEDS: MIDODRINE 5 MG TABLET PO SCH ×3 (10:19→21:53)
[2018-08-15 12:43] VITALS: BP 95/56
[2018-08-15 19:59] VITALS: BP 95/62
[2018-08-15] MEDS: INSULIN GLARGINE 100 UNITS/ML, PEN SQ-INSULIN SCH (21:53)
[2018-08-16 00:36] VITALS: BP 90/52
[2018-08-16] MEDS: SUCRALFATE 1 GM TABLET PO SCH ×4 (06:11→20:46)
[2018-08-16 06:28] LABS: MEAN CORPUSCULAR HGB CONC 34.9 g/dL (33.2-36.2); MEAN CORPUSCULAR VOLUME 103.2 fL (81-97); RED BLOOD COUNT 2.12 x10^6/uL (4.38-5.82); RED CELL DISTRIBUTION WIDTH 27.2 % (9.4-14.8)
[2018-08-16 06:30] LABS: PLATELET COUNT 47 x10^3/uL (130-400)
[2018-08-16 06:37] LABS: ANION GAP 10 mmol/L (5-15); CALCIUM 8.9 mg/dL (8.5-10.1); CHLORIDE 105 mmol/L (98-107); CREATININE 6.95 mg/dL (0.7-1.3)
[2018-08-16 06:43] LABS: BASOPHILS # (AUTO) 0.02 x10^3/uL (0-0.1); BASOPHILS % (AUTO) 1 % (0-1); EOSINOPHILS # (AUTO) 0.11 x10^3/uL (0-0.4); EOSINOPHILS % (AUTO) 3 % (1-7); LYMPHOCYTES # (AUTO) 0.87 x10^3/uL (1-3.4); LYMPHOCYTES % (AUTO) 21 % (22-44); MD SCAN; MONOCYTES # (AUTO) 0.39 x10^3/uL (0.2-0.8); MONOCYTES % (AUTO) 9 % (2-9); NEUTROPHILS # (AUTO) 2.77 x10^3/uL (1.8-6.8); NEUTROPHILS % (AUTO) 67 % (42-75)
[2018-08-16] MEDS: INSULIN LISPRO 100 UNITS/ML, PEN SQ-INSULIN SCH ×4 (07:00→20:48)
[2018-08-16 07:02] VITALS: BP 80/38
[2018-08-16] MEDS: FOLIC ACID 1 MG TABLET PO SCH (08:49)
[2018-08-16] MEDS: RIFAXIMIN 550 MG TABLET PO SCH ×2 (08:49→20:46)
[2018-08-16] MEDS: MIDODRINE 5 MG TABLET PO SCH ×3 (08:49→20:46)
[2018-08-16] MEDS: FLUDROCORTISONE 0.1 MG TABLET PO SCH (08:49)
[2018-08-16] MEDS: LACTULOSE 10 GM/15 ML UDC PO SCH ×3 (08:50→20:48)
[2018-08-16] MEDS: PANTOPROZOLE 40MG TABLET PO SCH ×2 (08:50→20:45)
[2018-08-16] MEDS: SODIUM CHLORIDE FLUSH 10ML SYR IVF SCH ×2 (08:50→20:48)
[2018-08-16 13:37] VITALS: BP 89/51
[2018-08-16] MEDS: DARBEPOETIN 60 MCG/ML SQ SCH (16:26)
[2018-08-16 18:54] VITALS: BP 83/39
[2018-08-16 20:44] VITALS: BP 85/46
[2018-08-16] MEDS: INSULIN GLARGINE 100 UNITS/ML, PEN SQ-INSULIN SCH (20:47)
[2018-08-16 22:16] VITALS: BP 129/63
[2018-08-16] MEDS: ZOLPIDEM 5MG TABLET PO PRN (22:21)
[2018-08-17 01:03] VITALS: BP 7/51
[2018-08-17 02:12] VITALS: BP 105/54
[2018-08-17 06:32] LABS: ANION GAP 13 mmol/L (5-15); CALCIUM 9.2 mg/dL (8.5-10.1); CHLORIDE 105 mmol/L (98-107); CREATININE 8.43 mg/dL (0.7-1.3)
[2018-08-17 06:40] LABS: HEMOGRAM NOTE RECHECKED; MEAN CORPUSCULAR HEMOGLOBIN 35.6 pg (27.5-34.5); MEAN CORPUSCULAR HGB CONC 34.2 g/dL (33.2-36.2); MEAN CORPUSCULAR VOLUME 104.1 fL (81-97); RED BLOOD COUNT 1.98 x10^6/uL (4.38-5.82); RED CELL DISTRIBUTION WIDTH 27.7 % (9.4-14.8)
[2018-08-17] MEDS: INSULIN LISPRO 100 UNITS/ML, PEN SQ-INSULIN SCH ×4 (07:00→21:00)
[2018-08-17 07:12] VITALS: BP 121/34
[2018-08-17 07:42] LABS: MEAN PLATELET VOLUME 9.3 fL (7.4-10.4)
[2018-08-17 07:43] LABS: PLATELET COUNT 42 x10^3/uL (130-400)
[2018-08-17 07:45] LABS: BASOPHILS # (AUTO) 0.01 x10^3/uL (0-0.1); BASOPHILS % (AUTO) 0 % (0-1); EOSINOPHILS # (AUTO) 0.06 x10^3/uL (0-0.4); EOSINOPHILS % (AUTO) 2 % (1-7); LYMPHOCYTES # (AUTO) 0.87 x10^3/uL (1-3.4); LYMPHOCYTES % (AUTO) 26 % (22-44); MD SCAN; MONOCYTES # (AUTO) 0.41 x10^3/uL (0.2-0.8); MONOCYTES % (AUTO) 12 % (2-9); NEUTROPHILS # (AUTO) 1.99 x10^3/uL (1.8-6.8); NEUTROPHILS % (AUTO) 60 % (42-75)
[2018-08-17] MEDS: RIFAXIMIN 550 MG TABLET PO SCH ×2 (08:05→22:07)
[2018-08-17] MEDS: SUCRALFATE 1 GM TABLET PO SCH ×4 (08:05→22:07)
[2018-08-17] MEDS: FLUDROCORTISONE 0.1 MG TABLET PO SCH (08:05)
[2018-08-17] MEDS: MIDODRINE 5 MG TABLET PO SCH ×3 (08:05→22:07)
[2018-08-17] MEDS: PANTOPROZOLE 40MG TABLET PO SCH ×2 (08:05→22:07)
[2018-08-17] MEDS: FOLIC ACID 1 MG TABLET PO SCH (08:05)
[2018-08-17] MEDS: LACTULOSE 10 GM/15 ML UDC PO SCH ×3 (08:06→22:08)
[2018-08-17] MEDS: SODIUM CHLORIDE FLUSH 10ML SYR IVF SCH ×2 (08:08→22:08)
[2018-08-17 14:01] VITALS: BP 102/58
[2018-08-17] MEDS ORDERED: VANCOMYCIN 2,000 MG in SODIUM CHLORIDE 0.9% 500 ML IV ONE (18:00)
[2018-08-17 20:48] VITALS: BP 104/50
[2018-08-17] MEDS: INSULIN GLARGINE 100 UNITS/ML, PEN SQ-INSULIN SCH (22:09)
[2018-08-18] VITALS (7 sets, daily range): BP systolic 84–112; BP diastolic 47–59
[2018-08-18] MEDS: INSULIN LISPRO 100 UNITS/ML, PEN SQ-INSULIN SCH ×4 (07:00→21:00)
[2018-08-18 07:07] LABS: ALBUMIN 3.5 g/dL (3.4-5.0); ANION GAP 9 mmol/L (5-15); CALCIUM 8.8 mg/dL (8.5-10.1); CHLORIDE 106 mmol/L (98-107)
[2018-08-18 07:10] LABS: ALANINE AMINOTRANSFERASE 14 U/L (12-78); ALKALINE PHOSPHATASE 80 U/L (45-117); BILIRUBIN,TOTAL 2.3 mg/dL (0.2-1.0); CREATININE 5.74 mg/dL (0.7-1.3); TOTAL PROTEIN 5.6 g/dL (6.4-8.2)
[2018-08-18 07:14] LABS: MEAN CORPUSCULAR HEMOGLOBIN 35.3 pg (27.5-34.5); MEAN CORPUSCULAR HGB CONC 34.3 g/dL (33.2-36.2); MEAN CORPUSCULAR VOLUME 103.1 fL (81-97); MEAN PLATELET VOLUME 8.7 fL (7.4-10.4); RED BLOOD COUNT 1.92 x10^6/uL (4.38-5.82); RED CELL DISTRIBUTION WIDTH 27.3 % (9.4-14.8)
[2018-08-18 07:17] LABS: PLATELET COUNT 31 x10^3/uL (130-400)
[2018-08-18 08:15] LABS: MD YES
[2018-08-18 08:33] LABS: BAND#(MANUAL) 0.02 x10^3/uL; BANDS%(MANUAL) 1 % (0-7); EOS#(MANUAL) 0.02 x10^3/uL (0.0-0.4); EOS% (MANUAL) 1 % (1-7); LYMPH#(MANUAL) 0.64 x10^3/uL (1-3.4); LYMPHS% (MANUAL) 29 % (22-44); MONOS#(MANUAL) 0.26 x10^3/uL (0.3-2.7); MONOS% (MANUAL) 12 % (2-9); SEG#(MANUAL) 1.25 x10^3/uL (1.8-6.8); SEGS% (MANUAL) 57 % (42-75)
[2018-08-18 08:35] LABS: ANISOCYTOSIS 2+; POLYCHROMASIA 1+
[2018-08-18 08:36] LABS: <PLATELET ESTIMATE> DECREASED; <PLT MORPHOLOGY> NORMAL PLT MORPH; OVALOCYTES 1+
[2018-08-18] MEDS: SODIUM CHLORIDE FLUSH 10ML SYR IVF SCH ×2 (09:00→21:43)
[2018-08-18] MEDS: LACTULOSE 10 GM/15 ML UDC PO SCH ×3 (09:00→21:00)
[2018-08-18] MEDS: RIFAXIMIN 550 MG TABLET PO SCH ×2 (09:27→21:43)
[2018-08-18] MEDS: SUCRALFATE 1 GM TABLET PO SCH ×4 (09:27→21:42)
[2018-08-18] MEDS: FOLIC ACID 1 MG TABLET PO SCH (09:27)
[2018-08-18] MEDS: PANTOPROZOLE 40MG TABLET PO SCH ×2 (09:27→21:43)
[2018-08-18] MEDS: FLUDROCORTISONE 0.1 MG TABLET PO SCH (09:27)
[2018-08-18] MEDS: MIDODRINE 5 MG TABLET PO SCH ×3 (09:28→21:43)
[2018-08-18] MEDS: INSULIN GLARGINE 100 UNITS/ML, PEN SQ-INSULIN SCH (21:45)
[2018-08-18] MEDS: ONDANSETRON 2MG/ML, 2ML IVPush PRN (22:00)
[2018-08-19 01:19] VITALS: BP 100/54
[2018-08-19] MEDS: INSULIN LISPRO 100 UNITS/ML, PEN SQ-INSULIN SCH ×4 (07:21→21:00)
[2018-08-19 07:33] VITALS: BP 94/59
[2018-08-19] MEDS: LACTULOSE 10 GM/15 ML UDC PO SCH ×3 (08:26→22:21)
[2018-08-19] MEDS: FOLIC ACID 1 MG TABLET PO SCH (08:27)
[2018-08-19] MEDS: FLUDROCORTISONE 0.1 MG TABLET PO SCH (08:27)
[2018-08-19] MEDS: SUCRALFATE 1 GM TABLET PO SCH ×4 (08:27→22:21)
[2018-08-19] MEDS: SODIUM CHLORIDE FLUSH 10ML SYR IVF SCH ×2 (08:27→22:22)
[2018-08-19] MEDS: PANTOPROZOLE 40MG TABLET PO SCH ×2 (08:27→22:21)
[2018-08-19] MEDS: RIFAXIMIN 550 MG TABLET PO SCH ×2 (08:27→22:21)
[2018-08-19] MEDS: MIDODRINE 5 MG TABLET PO SCH ×3 (08:32→22:21)
[2018-08-19] MEDS: ONDANSETRON 2MG/ML, 2ML IVPush PRN (10:19)
[2018-08-19 13:36] VITALS: BP 101/47
[2018-08-19] MEDS: ALBUMIN HUMAN 25% 100 ML IV PRN ×2 (15:29→15:40)
[2018-08-19] MEDS ORDERED: SUCRALFATE 1 GM TABLET PO ONE (16:00)
[2018-08-19 21:35] VITALS: BP 93/54
[2018-08-19] MEDS: INSULIN GLARGINE 100 UNITS/ML, PEN SQ-INSULIN SCH (22:22)
[2018-08-20 01:30] VITALS: BP 97/58
[2018-08-20 05:58] LABS: MEAN CORPUSCULAR HEMOGLOBIN 35.7 pg (27.5-34.5); MEAN CORPUSCULAR HGB CONC 34.9 g/dL (33.2-36.2); MEAN CORPUSCULAR VOLUME 102.2 fL (81-97); MEAN PLATELET VOLUME 9.1 fL (7.4-10.4); RED BLOOD COUNT 2.06 x10^6/uL (4.38-5.82); RED CELL DISTRIBUTION WIDTH 26.7 % (9.4-14.8)
[2018-08-20 06:00] LABS: CHLORIDE 106 mmol/L (98-107)
[2018-08-20 06:05] LABS: PLATELET COUNT 33 x10^3/uL (130-400)
[2018-08-20 06:08] LABS: ALANINE AMINOTRANSFERASE 16 U/L (12-78); ALBUMIN 3.5 g/dL (3.4-5.0); ALKALINE PHOSPHATASE 82 U/L (45-117); ANION GAP 8 mmol/L (5-15); BILIRUBIN,TOTAL 2.6 mg/dL (0.2-1.0); CALCIUM 9.1 mg/dL (8.5-10.1); CREATININE 4.93 mg/dL (0.7-1.3); TOTAL PROTEIN 5.8 g/dL (6.4-8.2)
[2018-08-20 06:31] LABS: MD YES
[2018-08-20 06:33] LABS: <PLATELET ESTIMATE> DECREASED; <PLT MORPHOLOGY> NORMAL PLT MORPH; ANISOCYTOSIS 2+; BAND#(MANUAL) 0.05 x10^3/uL; BANDS%(MANUAL) 2 % (0-7); EOS#(MANUAL) 0.05 x10^3/uL (0.0-0.4); EOS% (MANUAL) 2 % (1-7); LYMPHS% (MANUAL) 16 % (22-44); MONOS% (MANUAL) 8 % (2-9); OVALOCYTES 1+; POLYCHROMASIA 1+; SEGS% (MANUAL) 72 % (42-75)
[2018-08-20] MEDS: INSULIN LISPRO 100 UNITS/ML, PEN SQ-INSULIN SCH ×4 (07:00→20:38)
[2018-08-20 07:06] VITALS: BP 99/56
[2018-08-20] MEDS: MIDODRINE 5 MG TABLET PO SCH ×3 (07:57→20:48)
[2018-08-20] MEDS: PANTOPROZOLE 40MG TABLET PO SCH ×2 (07:57→20:47)
[2018-08-20] MEDS: RIFAXIMIN 550 MG TABLET PO SCH ×2 (07:57→20:47)
[2018-08-20] MEDS: SUCRALFATE 1 GM TABLET PO SCH ×4 (07:57→20:47)
[2018-08-20] MEDS: FLUDROCORTISONE 0.1 MG TABLET PO SCH (07:57)
[2018-08-20] MEDS: LACTULOSE 10 GM/15 ML UDC PO SCH ×3 (07:58→20:38)
[2018-08-20] MEDS: FOLIC ACID 1 MG TABLET PO SCH (07:58)
[2018-08-20] MEDS: SODIUM CHLORIDE FLUSH 10ML SYR IVF SCH ×2 (09:47→20:47)
[2018-08-20 13:05] VITALS: BP 100/53
[2018-08-20 18:24] VITALS: BP 105/61
[2018-08-20] MEDS: INSULIN GLARGINE 100 UNITS/ML, PEN SQ-INSULIN SCH (20:49)
[2018-08-21] MEDS: ZOLPIDEM 5MG TABLET PO PRN (00:47)
[2018-08-21 01:30] VITALS: BP 96/57
[2018-08-21] MEDS: INSULIN LISPRO 100 UNITS/ML, PEN SQ-INSULIN SCH ×4 (07:00→20:43)
[2018-08-21] MEDS: SUCRALFATE 1 GM TABLET PO SCH ×4 (07:00→20:41)
[2018-08-21 08:04] VITALS: BP 99/60
[2018-08-21] MEDS: LACTULOSE 10 GM/15 ML UDC PO SCH ×3 (08:39→20:43)
[2018-08-21] MEDS: MIDODRINE 5 MG TABLET PO SCH ×3 (08:40→20:42)
[2018-08-21] MEDS: FOLIC ACID 1 MG TABLET PO SCH (08:40)
[2018-08-21] MEDS: RIFAXIMIN 550 MG TABLET PO SCH ×2 (08:41→20:41)
[2018-08-21] MEDS: PANTOPROZOLE 40MG TABLET PO SCH ×2 (08:41→20:41)
[2018-08-21] MEDS: FLUDROCORTISONE 0.1 MG TABLET PO SCH (08:41)
[2018-08-21] MEDS: SODIUM CHLORIDE FLUSH 10ML SYR IVF SCH ×2 (09:00→20:40)
[2018-08-21 12:11] LABS: MEAN CORPUSCULAR HEMOGLOBIN 35.7 pg (27.5-34.5); MEAN CORPUSCULAR HGB CONC 34.6 g/dL (33.2-36.2); MEAN CORPUSCULAR VOLUME 103.1 fL (81-97); MEAN PLATELET VOLUME 8.7 fL (7.4-10.4); RED BLOOD COUNT 2.02 x10^6/uL (4.38-5.82); RED CELL DISTRIBUTION WIDTH 26.1 % (9.4-14.8)
[2018-08-21 12:14] LABS: PLATELET COUNT 38 x10^3/uL (130-400)
[2018-08-21 12:16] LABS: ALBUMIN 3.4 g/dL (3.4-5.0); ANION GAP 12 mmol/L (5-15); CALCIUM 9.1 mg/dL (8.5-10.1); CHLORIDE 105 mmol/L (98-107)
[2018-08-21 12:19] LABS: ALANINE AMINOTRANSFERASE 14 U/L (12-78); ALKALINE PHOSPHATASE 80 U/L (45-117); BILIRUBIN,TOTAL 2.4 mg/dL (0.2-1.0); CREATININE 7.44 mg/dL (0.7-1.3); TOTAL PROTEIN 5.6 g/dL (6.4-8.2)
[2018-08-21 13:39] LABS: MD YES
[2018-08-21 14:01] LABS: ANISOCYTOSIS 2+; EOS#(MANUAL) 0.05 x10^3/uL (0.0-0.4); EOS% (MANUAL) 2 % (1-7); LYMPHS% (MANUAL) 28 % (22-44); SEG#(MANUAL) 1.75 x10^3/uL (1.8-6.8); SEGS% (MANUAL) 70 % (42-75)
[2018-08-21 14:02] LABS: <PLATELET ESTIMATE> DECREASED; <PLT MORPHOLOGY> NORMAL PLT MORPH; OVALOCYTES 1+
[2018-08-21 14:07] VITALS: BP 100/62
[2018-08-21 19:37] VITALS: BP 97/58
[2018-08-21] MEDS: INSULIN GLARGINE 100 UNITS/ML, PEN SQ-INSULIN SCH (20:43)
[2018-08-22 01:11] VITALS: BP 100/59
[2018-08-22 05:57] LABS: CHLORIDE 104 mmol/L (98-107)
[2018-08-22 06:32] LABS: ALANINE AMINOTRANSFERASE 17 U/L (12-78); ALBUMIN 3.5 g/dL (3.4-5.0); ALKALINE PHOSPHATASE 78 U/L (45-117); ANION GAP 10 mmol/L (5-15); BILIRUBIN,TOTAL 2.5 mg/dL (0.2-1.0); CALCIUM 8.7 mg/dL (8.5-10.1); CREATININE 4.87 mg/dL (0.7-1.3); TOTAL PROTEIN 5.6 g/dL (6.4-8.2)
[2018-08-22 09:06] VITALS: BP 75/39
[2018-08-22] MEDS: MIDODRINE 5 MG TABLET PO SCH ×3 (09:09→22:04)
[2018-08-22] MEDS: FOLIC ACID 1 MG TABLET PO SCH (09:09)
[2018-08-22] MEDS: RIFAXIMIN 550 MG TABLET PO SCH ×2 (09:09→21:42)
[2018-08-22] MEDS: FLUDROCORTISONE 0.1 MG TABLET PO SCH (09:09)
[2018-08-22] MEDS: SUCRALFATE 1 GM TABLET PO SCH ×4 (09:09→21:43)
[2018-08-22] MEDS: PANTOPROZOLE 40MG TABLET PO SCH ×2 (09:09→21:43)
[2018-08-22] MEDS: INSULIN LISPRO 100 UNITS/ML, PEN SQ-INSULIN SCH ×4 (09:10→21:41)
[2018-08-22] MEDS: SODIUM CHLORIDE FLUSH 10ML SYR IVF SCH ×2 (09:10→21:39)
[2018-08-22] MEDS: LACTULOSE 10 GM/15 ML UDC PO SCH ×3 (09:10→20:06)
[2018-08-22 11:17] VITALS: BP 78/41
[2018-08-22 14:52] VITALS: BP 73/32
[2018-08-22 19:34] VITALS: BP 94/48
[2018-08-22] MEDS: INSULIN GLARGINE 100 UNITS/ML, PEN SQ-INSULIN SCH (21:41)
[2018-08-22] MEDS: ZOLPIDEM 5MG TABLET PO PRN (21:43)
[2018-08-22 23:08] VITALS: BP 103/52
[2018-08-23 02:21] VITALS: BP 112/52
[2018-08-23] MEDS: INSULIN LISPRO 100 UNITS/ML, PEN SQ-INSULIN SCH ×4 (07:00→21:00)
[2018-08-23 07:45] VITALS: BP 123/55
[2018-08-23] MEDS: LACTULOSE 10 GM/15 ML UDC PO SCH ×3 (08:51→21:00)
[2018-08-23] MEDS: MIDODRINE 5 MG TABLET PO SCH ×3 (08:51→21:34)
[2018-08-23] MEDS: FOLIC ACID 1 MG TABLET PO SCH (08:51)
[2018-08-23] MEDS: FLUDROCORTISONE 0.1 MG TABLET PO SCH (08:52)
[2018-08-23] MEDS: PANTOPROZOLE 40MG TABLET PO SCH ×2 (08:52→21:33)
[2018-08-23] MEDS: SUCRALFATE 1 GM TABLET PO SCH ×4 (08:52→21:35)
[2018-08-23] MEDS: RIFAXIMIN 550 MG TABLET PO SCH ×2 (08:52→21:33)
[2018-08-23] MEDS: SODIUM CHLORIDE FLUSH 10ML SYR IVF SCH ×2 (08:55→21:00)
[2018-08-23 12:17] VITALS: BP 100/54
[2018-08-23] MEDS: DARBEPOETIN 60 MCG/ML SQ SCH (17:37)
[2018-08-23] MEDS: ONDANSETRON ODT 4 MG PO PRN (17:47)
[2018-08-23 19:55] VITALS: BP 96/51
[2018-08-23] MEDS: INSULIN GLARGINE 100 UNITS/ML, PEN SQ-INSULIN SCH (21:36)
[2018-08-23] MEDS: ONDANSETRON 2MG/ML, 2ML IVPush PRN (21:53)
[2018-08-24] VITALS (9 sets, daily range): BP systolic 85–122; BP diastolic 33–61
[2018-08-24] MEDS: SUCRALFATE 1 GM TABLET PO SCH ×4 (07:00→20:38)
[2018-08-24] MEDS: INSULIN LISPRO 100 UNITS/ML, PEN SQ-INSULIN SCH ×4 (07:00→20:39)
[2018-08-24] MEDS: LACTULOSE 10 GM/15 ML UDC PO SCH ×3 (09:00→20:39)
[2018-08-24] MEDS: FLUDROCORTISONE 0.1 MG TABLET PO SCH (10:28)
[2018-08-24] MEDS: ONDANSETRON 2MG/ML, 2ML IVPush PRN (10:28)
[2018-08-24] MEDS: MIDODRINE 5 MG TABLET PO SCH ×3 (10:28→20:36)
[2018-08-24] MEDS: FOLIC ACID 1 MG TABLET PO SCH (10:28)
[2018-08-24] MEDS: RIFAXIMIN 550 MG TABLET PO SCH ×2 (10:29→20:38)
[2018-08-24] MEDS: SODIUM CHLORIDE FLUSH 10ML SYR IVF SCH ×2 (10:29→20:39)
[2018-08-24] MEDS: PANTOPROZOLE 40MG TABLET PO SCH ×2 (10:29→20:38)
[2018-08-24] MEDS: ALBUMIN HUMAN 25% 100 ML IV PRN ×3 (15:32→17:15)
[2018-08-24] MEDS: INSULIN GLARGINE 100 UNITS/ML, PEN SQ-INSULIN SCH (20:36)
[2018-08-24] MEDS: ZOLPIDEM 5MG TABLET PO PRN (23:46)
[2018-08-25 01:12] VITALS: BP 121/67
[2018-08-25] MEDS: INSULIN LISPRO 100 UNITS/ML, PEN SQ-INSULIN SCH ×4 (07:00→20:13)
[2018-08-25 08:43] VITALS: BP 119/71
[2018-08-25] MEDS: LACTULOSE 10 GM/15 ML UDC PO SCH ×3 (09:00→20:13)
[2018-08-25] MEDS: PANTOPROZOLE 40MG TABLET PO SCH ×2 (09:01→20:12)
[2018-08-25] MEDS: RIFAXIMIN 550 MG TABLET PO SCH ×2 (09:01→20:12)
[2018-08-25] MEDS: SUCRALFATE 1 GM TABLET PO SCH ×4 (09:01→20:16)
[2018-08-25] MEDS: FOLIC ACID 1 MG TABLET PO SCH (09:01)
[2018-08-25] MEDS: MIDODRINE 5 MG TABLET PO SCH ×3 (09:02→20:12)
[2018-08-25] MEDS: FLUDROCORTISONE 0.1 MG TABLET PO SCH (09:02)
[2018-08-25] MEDS: SODIUM CHLORIDE FLUSH 10ML SYR IVF SCH ×2 (09:05→20:13)
[2018-08-25 14:27] VITALS: BP 124/68
[2018-08-25 19:17] VITALS: BP 109/62
[2018-08-25] MEDS: INSULIN GLARGINE 100 UNITS/ML, PEN SQ-INSULIN SCH (20:12)
[2018-08-26 01:30] VITALS: BP 112/63
[2018-08-26] MEDS: INSULIN LISPRO 100 UNITS/ML, PEN SQ-INSULIN SCH ×4 (07:00→21:00)
[2018-08-26 07:02] VITALS: BP 108/47
[2018-08-26] MEDS: LACTULOSE 10 GM/15 ML UDC PO SCH ×3 (08:03→21:00)
[2018-08-26] MEDS: FOLIC ACID 1 MG TABLET PO SCH (08:03)
[2018-08-26] MEDS: MIDODRINE 5 MG TABLET PO SCH ×3 (08:04→22:18)
[2018-08-26] MEDS: RIFAXIMIN 550 MG TABLET PO SCH ×2 (08:04→22:18)
[2018-08-26] MEDS: FLUDROCORTISONE 0.1 MG TABLET PO SCH (08:04)
[2018-08-26] MEDS: SODIUM CHLORIDE FLUSH 10ML SYR IVF SCH ×2 (08:04→22:18)
[2018-08-26] MEDS: PANTOPROZOLE 40MG TABLET PO SCH ×2 (08:04→22:18)
[2018-08-26] MEDS: SUCRALFATE 1 GM TABLET PO SCH ×4 (08:04→22:18)
[2018-08-26 13:00] VITALS: BP 107/40
[2018-08-26] MEDS: ACETAMINOPHEN 325 MG TABLET PO PRN (22:18)
[2018-08-26 22:24] VITALS: BP 144/64
[2018-08-26] MEDS: INSULIN GLARGINE 100 UNITS/ML, PEN SQ-INSULIN SCH (22:24)
[2018-08-26] MEDS: ZOLPIDEM 5MG TABLET PO PRN (22:44)
[2018-08-27 02:36] VITALS: BP 108/48
[2018-08-27] MEDS: INSULIN LISPRO 100 UNITS/ML, PEN SQ-INSULIN SCH ×4 (07:00→21:19)
[2018-08-27 07:23] VITALS: BP 123/55
[2018-08-27] MEDS: LACTULOSE 10 GM/15 ML UDC PO SCH ×3 (08:34→21:00)
[2018-08-27] MEDS: RIFAXIMIN 550 MG TABLET PO SCH ×2 (08:35→21:00)
[2018-08-27] MEDS: FOLIC ACID 1 MG TABLET PO SCH (08:35)
[2018-08-27] MEDS: PANTOPROZOLE 40MG TABLET PO SCH ×2 (08:35→21:18)
[2018-08-27] MEDS: FLUDROCORTISONE 0.1 MG TABLET PO SCH (08:35)
[2018-08-27] MEDS: SUCRALFATE 1 GM TABLET PO SCH ×4 (08:35→21:17)
[2018-08-27] MEDS: MIDODRINE 5 MG TABLET PO SCH ×3 (08:35→21:16)
[2018-08-27] MEDS: SODIUM CHLORIDE FLUSH 10ML SYR IVF SCH ×2 (09:00→21:14)
[2018-08-27 13:09] VITALS: BP 127/60
[2018-08-27 16:18] VITALS: BP 95/40
[2018-08-27 20:45] VITALS: BP 90/56
[2018-08-27] MEDS: INSULIN GLARGINE 100 UNITS/ML, PEN SQ-INSULIN SCH (21:19)
[2018-08-27] MEDS: ONDANSETRON ODT 4 MG PO PRN (21:26)
[2018-08-27] MEDS: ZOLPIDEM 5MG TABLET PO PRN (21:26)
[2018-08-28 03:04] VITALS: BP 162/51
[2018-08-28] MEDS: INSULIN LISPRO 100 UNITS/ML, PEN SQ-INSULIN SCH ×4 (07:00→20:09)
[2018-08-28] MEDS: MIDODRINE 5 MG TABLET PO SCH ×3 (08:40→20:10)
[2018-08-28] MEDS: SUCRALFATE 1 GM TABLET PO SCH ×4 (08:41→20:10)
[2018-08-28] MEDS: RIFAXIMIN 550 MG TABLET PO SCH ×2 (08:41→20:10)
[2018-08-28] MEDS: PANTOPROZOLE 40MG TABLET PO SCH ×2 (08:41→20:10)
[2018-08-28] MEDS: FOLIC ACID 1 MG TABLET PO SCH (08:41)
[2018-08-28] MEDS: FLUDROCORTISONE 0.1 MG TABLET PO SCH (08:41)
[2018-08-28] MEDS: SODIUM CHLORIDE FLUSH 10ML SYR IVF SCH ×2 (09:00→20:10)
[2018-08-28] MEDS: LACTULOSE 10 GM/15 ML UDC PO SCH ×3 (09:00→20:10)
[2018-08-28 11:11] LABS: ALBUMIN 4.5 g/dL (3.4-5.0); ANION GAP 9 mmol/L (5-15); CALCIUM 9.2 mg/dL (8.5-10.1); CHLORIDE 97 mmol/L (98-107)
[2018-08-28 11:15] LABS: ALANINE AMINOTRANSFERASE 13 U/L (12-78); ALKALINE PHOSPHATASE 92 U/L (45-117); BILIRUBIN,TOTAL 3.8 mg/dL (0.2-1.0); TOTAL PROTEIN 6.9 g/dL (6.4-8.2)
[2018-08-28 15:16] VITALS: BP 108/67
[2018-08-28] MEDS: INSULIN GLARGINE 100 UNITS/ML, PEN SQ-INSULIN SCH (20:29)
[2018-08-28] MEDS: ZOLPIDEM 5MG TABLET PO PRN (20:30)
[2018-08-28 20:51] VITALS: BP 113/41
[2018-08-29] MEDS: DIPHENHYDRAMINE 25 MG CAPSULE PO PRN (00:31)
[2018-08-29 02:51] VITALS: BP 144/71
[2018-08-29] MEDS: INSULIN LISPRO 100 UNITS/ML, PEN SQ-INSULIN SCH ×4 (07:00→20:40)
[2018-08-29 07:47] VITALS: BP 116/70
[2018-08-29] MEDS: RIFAXIMIN 550 MG TABLET PO SCH ×2 (08:18→20:29)
[2018-08-29] MEDS: FLUDROCORTISONE 0.1 MG TABLET PO SCH (08:18)
[2018-08-29] MEDS: LACTULOSE 10 GM/15 ML UDC PO SCH ×3 (08:18→20:29)
[2018-08-29] MEDS: SODIUM CHLORIDE FLUSH 10ML SYR IVF SCH ×2 (08:19→20:29)
[2018-08-29] MEDS: SUCRALFATE 1 GM TABLET PO SCH ×4 (08:19→20:28)
[2018-08-29] MEDS: PANTOPROZOLE 40MG TABLET PO SCH ×2 (08:19→20:29)
[2018-08-29] MEDS: FOLIC ACID 1 MG TABLET PO SCH (08:19)
[2018-08-29] MEDS: MIDODRINE 5 MG TABLET PO SCH ×3 (08:19→20:39)
[2018-08-29 14:25] VITALS: BP 122/68
[2018-08-29 20:12] VITALS: BP 111/46
[2018-08-29] MEDS: ZOLPIDEM 5MG TABLET PO PRN (20:29)
[2018-08-29] MEDS: INSULIN GLARGINE 100 UNITS/ML, PEN SQ-INSULIN SCH (20:40)
[2018-08-29] MEDS ORDERED: NEUTRA PHOS K 250 MG TABLET PO SCH (21:00)
[2018-08-30 01:43] VITALS: BP 128/69
[2018-08-30 05:58] LABS: MEAN CORPUSCULAR HEMOGLOBIN 36.7 pg (27.5-34.5); MEAN CORPUSCULAR HGB CONC 35.2 g/dL (33.2-36.2); MEAN CORPUSCULAR VOLUME 104.4 fL (81-97); MEAN PLATELET VOLUME 8.9 fL (7.4-10.4); RED BLOOD COUNT 2.09 x10^6/uL (4.38-5.82); RED CELL DISTRIBUTION WIDTH 25.4 % (9.4-14.8)
[2018-08-30 06:04] LABS: CALCIUM 10.1 mg/dL (8.5-10.1); CHLORIDE 97 mmol/L (98-107); PLATELET COUNT 42 x10^3/uL (130-400)
[2018-08-30 06:07] LABS: ALBUMIN 4.5 g/dL (3.4-5.0); ANION GAP 13 mmol/L (5-15); CREATININE 7.58 mg/dL (0.7-1.3)
[2018-08-30] MEDS: SUCRALFATE 1 GM TABLET PO SCH ×4 (06:38→20:42)
[2018-08-30 06:42] LABS: MD YES
[2018-08-30 06:45] LABS: EOS#(MANUAL) 0.08 x10^3/uL (0.0-0.4); EOS% (MANUAL) 3 % (1-7); LYMPH#(MANUAL) 0.81 x10^3/uL (1-3.4); LYMPHS% (MANUAL) 29 % (22-44); MONOS#(MANUAL) 0.14 x10^3/uL (0.3-2.7); MONOS% (MANUAL) 5 % (2-9); SEG#(MANUAL) 1.76 x10^3/uL (1.8-6.8); SEGS% (MANUAL) 63 % (42-75)
[2018-08-30 06:46] LABS: POLYCHROMASIA 1+
[2018-08-30 06:48] LABS: <PLATELET ESTIMATE> DECREASED; <PLT MORPHOLOGY> NORMAL PLT MORPH
[2018-08-30 06:49] LABS: ANISOCYTOSIS 1+
[2018-08-30] MEDS: INSULIN LISPRO 100 UNITS/ML, PEN SQ-INSULIN SCH ×4 (07:00→21:43)
[2018-08-30 07:35] VITALS: BP 90/54
[2018-08-30] MEDS: PANTOPROZOLE 40MG TABLET PO SCH ×2 (09:00→20:42)
[2018-08-30] MEDS: FLUDROCORTISONE 0.1 MG TABLET PO SCH (09:00)
[2018-08-30] MEDS: RIFAXIMIN 550 MG TABLET PO SCH ×2 (09:00→20:42)
[2018-08-30] MEDS: MIDODRINE 5 MG TABLET PO SCH ×3 (09:00→20:42)
[2018-08-30] MEDS: FOLIC ACID 1 MG TABLET PO SCH (09:00)
[2018-08-30] MEDS: LACTULOSE 10 GM/15 ML UDC PO SCH ×3 (09:00→20:41)
[2018-08-30] MEDS ORDERED: LORazepam 2 MG/ML, 1ML ONE (10:23)
[2018-08-30] MEDS: NEUTRA PHOS K 250 MG TABLET PO SCH ×3 (10:30→20:42)
[2018-08-30] MEDS ORDERED: LORazepam 2 MG/ML, 1ML IVPush PRN (10:30)
[2018-08-30] MEDS ORDERED: LACTULOSE 3.3 GM/5 ML ORAL.SOL RC ONE ×2 (11:30→21:00)
[2018-08-30] MEDS: SODIUM CHLORIDE FLUSH 10ML SYR IVF SCH ×2 (12:30→22:26)
[2018-08-30 14:00] VITALS: BP 117/68
[2018-08-30] MEDS: DARBEPOETIN 60 MCG/ML SQ SCH (18:17)
[2018-08-30 21:07] VITALS: BP 152/85
[2018-08-30] MEDS: INSULIN GLARGINE 100 UNITS/ML, PEN SQ-INSULIN SCH (21:43)
[2018-08-31 00:56] VITALS: BP 128/50
[2018-08-31] MEDS: ONDANSETRON 2MG/ML, 2ML IVPush PRN (03:22)
[2018-08-31 06:41] LABS: MEAN CORPUSCULAR HEMOGLOBIN 35.7 pg (27.5-34.5); MEAN CORPUSCULAR HGB CONC 33.9 g/dL (33.2-36.2); MEAN CORPUSCULAR VOLUME 105.2 fL (81-97); MEAN PLATELET VOLUME 8.8 fL (7.4-10.4); RED BLOOD COUNT 2.24 x10^6/uL (4.38-5.82); RED CELL DISTRIBUTION WIDTH 25.5 % (9.4-14.8)
[2018-08-31 06:44] LABS: PLATELET COUNT 41 x10^3/uL (130-400)
[2018-08-31 06:53] VITALS: BP 152/67
[2018-08-31 06:53] LABS: ALBUMIN 4.4 g/dL (3.4-5.0); ANION GAP 18 mmol/L (5-15); CALCIUM 10.4 mg/dL (8.5-10.1); CHLORIDE 104 mmol/L (98-107)
[2018-08-31] MEDS: INSULIN LISPRO 100 UNITS/ML, PEN SQ-INSULIN SCH ×4 (07:00→20:42)
[2018-08-31] MEDS: SUCRALFATE 1 GM TABLET PO SCH ×4 (07:00→22:37)
[2018-08-31 07:29] LABS: MD YES
[2018-08-31 07:30] LABS: NRBC % (MANUAL) 1 % (0-1)
[2018-08-31 07:31] LABS: ANISOCYTOSIS 1+; LYMPH#(MANUAL) 0.71 x10^3/uL (1-3.4); LYMPHS% (MANUAL) 15 % (22-44); MONOS#(MANUAL) 0.28 x10^3/uL (0.3-2.7); MONOS% (MANUAL) 6 % (2-9); OVALOCYTES 1+; POLYCHROMASIA 1+; SEG#(MANUAL) 3.71 x10^3/uL (1.8-6.8); SEGS% (MANUAL) 79 % (42-75)
[2018-08-31 07:32] LABS: <PLATELET ESTIMATE> DECREASED; <PLT MORPHOLOGY> NORMAL PLT MORPH
[2018-08-31] MEDS: SODIUM CHLORIDE FLUSH 10ML SYR IVF SCH ×2 (09:00→22:36)
[2018-08-31] MEDS: RIFAXIMIN 550 MG TABLET PO SCH ×2 (11:54→22:37)
[2018-08-31] MEDS: NEUTRA PHOS K 250 MG TABLET PO SCH ×3 (11:54→22:37)
[2018-08-31] MEDS: MIDODRINE 5 MG TABLET PO SCH ×3 (11:54→22:37)
[2018-08-31] MEDS: FLUDROCORTISONE 0.1 MG TABLET PO SCH (11:54)
[2018-08-31] MEDS: LACTULOSE 10 GM/15 ML UDC PO SCH ×3 (11:54→22:35)
[2018-08-31] MEDS: FOLIC ACID 1 MG TABLET PO SCH (11:55)
[2018-08-31] MEDS: PANTOPROZOLE 40MG TABLET PO SCH ×2 (11:55→22:37)
[2018-08-31 12:54] VITALS: BP 124/55
--- NOTE | 2018-08-31 15:16 | NUR ---
Pureed with thin liquids. Loleta sheet reviewed with patient and placed in patient's room on whiteboard with recommended diet and swallow strategies/precautions. Addendum: 08/31/18 at 1534 by AMNA MOSES Amended: Links added.
[2018-08-31] MEDS: ALBUMIN HUMAN 25% 100 ML IV PRN (18:43)
[2018-08-31 22:30] VITALS: BP 135/50
[2018-08-31] MEDS: INSULIN GLARGINE 100 UNITS/ML, PEN SQ-INSULIN SCH (22:36)
[2018-09-01 04:48] VITALS: BP 162/53
[2018-09-01 07:10] VITALS: BP 147/62
[2018-09-01] MEDS: LACTULOSE 10 GM/15 ML UDC PO SCH ×3 (07:59→22:01)
[2018-09-01] MEDS: PANTOPROZOLE 40MG TABLET PO SCH ×2 (07:59→22:01)
[2018-09-01] MEDS: FOLIC ACID 1 MG TABLET PO SCH (07:59)
[2018-09-01] MEDS: MIDODRINE 5 MG TABLET PO SCH ×3 (07:59→22:01)
[2018-09-01] MEDS: SODIUM CHLORIDE FLUSH 10ML SYR IVF SCH ×2 (07:59→22:00)
[2018-09-01] MEDS: NEUTRA PHOS K 250 MG TABLET PO SCH (07:59)
[2018-09-01] MEDS: SUCRALFATE 1 GM TABLET PO SCH ×4 (07:59→22:01)
[2018-09-01] MEDS: FLUDROCORTISONE 0.1 MG TABLET PO SCH (07:59)
[2018-09-01] MEDS: RIFAXIMIN 550 MG TABLET PO SCH ×2 (07:59→22:01)
[2018-09-01] MEDS: INSULIN LISPRO 100 UNITS/ML, PEN SQ-INSULIN SCH ×4 (08:11→22:02)
[2018-09-01 08:47] LABS: ANION GAP 13 mmol/L (5-15); CALCIUM 9.4 mg/dL (8.5-10.1); CHLORIDE 99 mmol/L (98-107)
[2018-09-01 08:48] LABS: CREATININE 6.67 mg/dL (0.7-1.3)
[2018-09-01] MEDS ORDERED: POTASSIUM CHLORIDE 20 MEQ TAB.ER.PRT PO ONE (11:00)
[2018-09-01 13:19] VITALS: BP 132/65
[2018-09-01 21:25] VITALS: BP 144/61
[2018-09-01] MEDS: INSULIN GLARGINE 100 UNITS/ML, PEN SQ-INSULIN SCH (22:02)
[2018-09-02 02:18] VITALS: BP 148/48
[2018-09-02 06:22] LABS: ANION GAP 14 mmol/L (5-15); CALCIUM 9.3 mg/dL (8.5-10.1); CHLORIDE 97 mmol/L (98-107); CREATININE 8.33 mg/dL (0.7-1.3)
[2018-09-02] MEDS: INSULIN LISPRO 100 UNITS/ML, PEN SQ-INSULIN SCH ×4 (07:00→21:00)
[2018-09-02 07:50] VITALS: BP 91/54
[2018-09-02] MEDS: MIDODRINE 5 MG TABLET PO SCH ×3 (07:57→21:20)
[2018-09-02] MEDS: PANTOPROZOLE 40MG TABLET PO SCH ×2 (07:57→21:21)
[2018-09-02] MEDS: SUCRALFATE 1 GM TABLET PO SCH ×4 (07:57→21:21)
[2018-09-02] MEDS: FOLIC ACID 1 MG TABLET PO SCH (07:57)
[2018-09-02] MEDS: FLUDROCORTISONE 0.1 MG TABLET PO SCH (07:57)
[2018-09-02] MEDS: RIFAXIMIN 550 MG TABLET PO SCH ×2 (07:57→21:20)
[2018-09-02] MEDS: LACTULOSE 10 GM/15 ML UDC PO SCH ×3 (07:57→21:22)
[2018-09-02] MEDS: SODIUM CHLORIDE FLUSH 10ML SYR IVF SCH ×2 (07:58→21:00)
[2018-09-02] MEDS ORDERED: POTASSIUM CHLORIDE 20 MEQ TAB.ER.PRT ONE (10:54)
[2018-09-02] MEDS: POTASSIUM CHLORIDE 20 MEQ TAB.ER.PRT PO SCH ×2 (11:04→21:20)
[2018-09-02 12:12] VITALS: BP 110/63
[2018-09-02] MEDS: ALBUMIN HUMAN 25% 100 ML IV PRN ×2 (19:28→20:30)
[2018-09-02 20:00] VITALS: BP 109/61
[2018-09-02] MEDS: INSULIN GLARGINE 100 UNITS/ML, PEN SQ-INSULIN SCH (21:20)
[2018-09-03 01:30] VITALS: BP 118/67
[2018-09-03] MEDS: INSULIN LISPRO 100 UNITS/ML, PEN SQ-INSULIN SCH ×4 (08:09→22:22)
[2018-09-03] MEDS: LACTULOSE 10 GM/15 ML UDC PO SCH ×3 (08:10→22:17)
[2018-09-03] MEDS: FLUDROCORTISONE 0.1 MG TABLET PO SCH (08:10)
[2018-09-03] MEDS: MIDODRINE 5 MG TABLET PO SCH ×3 (08:10→22:16)
[2018-09-03] MEDS: RIFAXIMIN 550 MG TABLET PO SCH ×2 (08:10→22:17)
[2018-09-03] MEDS: SUCRALFATE 1 GM TABLET PO SCH ×4 (08:11→22:17)
[2018-09-03] MEDS: PANTOPROZOLE 40MG TABLET PO SCH ×2 (08:11→22:17)
[2018-09-03] MEDS: FOLIC ACID 1 MG TABLET PO SCH (08:11)
[2018-09-03] MEDS: SODIUM CHLORIDE FLUSH 10ML SYR IVF SCH ×2 (08:17→22:16)
[2018-09-03 08:20] VITALS: BP 115/63
[2018-09-03 15:04] VITALS: BP 110/51
[2018-09-03 19:18] VITALS: BP 118/68
[2018-09-03] MEDS: INSULIN GLARGINE 100 UNITS/ML, PEN SQ-INSULIN SCH (22:22)
[2018-09-04 01:49] VITALS: BP 126/71
[2018-09-04 07:50] VITALS: BP 109/63
[2018-09-04] MEDS: SUCRALFATE 1 GM TABLET PO SCH ×4 (08:37→21:16)
[2018-09-04] MEDS: ALBUMIN HUMAN 25% 100 ML IV PRN ×3 (08:37→11:54)
[2018-09-04] MEDS: MIDODRINE 5 MG TABLET PO SCH ×3 (08:37→21:15)
[2018-09-04] MEDS: PANTOPROZOLE 40MG TABLET PO SCH ×2 (08:37→21:16)
[2018-09-04] MEDS: LACTULOSE 10 GM/15 ML UDC PO SCH ×3 (09:00→21:16)
[2018-09-04] MEDS: INSULIN LISPRO 100 UNITS/ML, PEN SQ-INSULIN SCH ×4 (09:24→21:16)
[2018-09-04 10:05] LABS: ANION GAP 11 mmol/L (5-15); CHLORIDE 98 mmol/L (98-107)
[2018-09-04 13:20] VITALS: BP 111/61
[2018-09-04] MEDS: FLUDROCORTISONE 0.1 MG TABLET PO SCH (14:52)
[2018-09-04] MEDS: SODIUM CHLORIDE FLUSH 10ML SYR IVF SCH ×2 (14:52→21:21)
[2018-09-04] MEDS: FOLIC ACID 1 MG TABLET PO SCH (14:52)
[2018-09-04] MEDS: RIFAXIMIN 550 MG TABLET PO SCH ×2 (14:52→21:16)
[2018-09-04 19:23] VITALS: BP 120/61
[2018-09-04] MEDS: INSULIN GLARGINE 100 UNITS/ML, PEN SQ-INSULIN SCH (21:17)
[2018-09-05 00:44] VITALS: BP 100/59
[2018-09-05 07:00] VITALS: BP 126/70
[2018-09-05] MEDS: INSULIN LISPRO 100 UNITS/ML, PEN SQ-INSULIN SCH ×4 (07:00→20:55)
[2018-09-05 07:10] VITALS: BP 131/64
[2018-09-05] MEDS: LACTULOSE 10 GM/15 ML UDC PO SCH ×3 (07:59→20:53)
[2018-09-05] MEDS: PANTOPROZOLE 40MG TABLET PO SCH ×2 (08:00→20:54)
[2018-09-05] MEDS: RIFAXIMIN 550 MG TABLET PO SCH ×2 (08:00→20:54)
[2018-09-05] MEDS: FOLIC ACID 1 MG TABLET PO SCH (08:00)
[2018-09-05] MEDS: FLUDROCORTISONE 0.1 MG TABLET PO SCH (08:00)
[2018-09-05] MEDS: MIDODRINE 5 MG TABLET PO SCH ×3 (08:00→20:54)
[2018-09-05] MEDS: SODIUM CHLORIDE FLUSH 10ML SYR IVF SCH ×2 (08:01→21:01)
[2018-09-05] MEDS: SUCRALFATE 1 GM TABLET PO SCH ×4 (08:08→20:54)
[2018-09-05 14:14] VITALS: BP 148/53
[2018-09-05 19:32] VITALS: BP 124/56
[2018-09-05] MEDS: INSULIN GLARGINE 100 UNITS/ML, PEN SQ-INSULIN SCH (20:55)
[2018-09-06] VITALS (9 sets, daily range): BP systolic 91–115; BP diastolic 35–64
[2018-09-06] MEDS: INSULIN LISPRO 100 UNITS/ML, PEN SQ-INSULIN SCH ×4 (07:00→20:34)
[2018-09-06] MEDS: SUCRALFATE 1 GM TABLET PO SCH ×4 (07:00→20:30)
[2018-09-06] MEDS: SODIUM CHLORIDE FLUSH 10ML SYR IVF SCH ×2 (09:00→20:30)
[2018-09-06] MEDS: RIFAXIMIN 550 MG TABLET PO SCH ×2 (10:06→20:30)
[2018-09-06] MEDS: MIDODRINE 5 MG TABLET PO SCH ×3 (10:06→20:30)
[2018-09-06] MEDS: FLUDROCORTISONE 0.1 MG TABLET PO SCH (10:06)
[2018-09-06] MEDS: PANTOPROZOLE 40MG TABLET PO SCH ×2 (10:07→20:30)
[2018-09-06] MEDS: LACTULOSE 10 GM/15 ML UDC PO SCH ×3 (10:07→20:30)
[2018-09-06] MEDS: FOLIC ACID 1 MG TABLET PO SCH (10:07)
[2018-09-06 15:42] LABS: HEMOGRAM NOTE RECHECKED
[2018-09-06] MEDS: DARBEPOETIN 60 MCG/ML SQ SCH (17:17)
[2018-09-06] MEDS: INSULIN GLARGINE 100 UNITS/ML, PEN SQ-INSULIN SCH (20:31)
[2018-09-07 00:20] VITALS: BP 97/58
[2018-09-07 06:12] LABS: MEAN CORPUSCULAR HEMOGLOBIN 36.2 pg (27.5-34.5); MEAN CORPUSCULAR HGB CONC 34.3 g/dL (33.2-36.2); MEAN CORPUSCULAR VOLUME 105.7 fL (81-97); RED BLOOD COUNT 2.03 x10^6/uL (4.38-5.82); RED CELL DISTRIBUTION WIDTH 26.4 % (9.4-14.8)
[2018-09-07 06:14] LABS: PLATELET COUNT 34 x10^3/uL (130-400)
[2018-09-07 06:16] LABS: CHLORIDE 99 mmol/L (98-107)
[2018-09-07 06:25] LABS: ALANINE AMINOTRANSFERASE 10 U/L (12-78); ALKALINE PHOSPHATASE 94 U/L (45-117); ANION GAP 14 mmol/L (5-15); BILIRUBIN,TOTAL 3.4 mg/dL (0.2-1.0); CALCIUM 9.9 mg/dL (8.5-10.1); CREATININE 8.51 mg/dL (0.7-1.3)
[2018-09-07 06:27] LABS: MD YES
[2018-09-07 06:29] LABS: BAND#(MANUAL) 0.05 x10^3/uL; BANDS%(MANUAL) 2 % (0-7); BASOS#(MANUAL) 0.05 x10^3/uL (0-0.1); BASOS% (MANUAL) 2 % (0-1); EOS#(MANUAL) 0.05 x10^3/uL (0.0-0.4); EOS% (MANUAL) 2 % (1-7); LYMPH#(MANUAL) 0.62 x10^3/uL (1-3.4); LYMPHS% (MANUAL) 23 % (22-44); MONOS% (MANUAL) 11 % (2-9); SEG#(MANUAL) 1.62 x10^3/uL (1.8-6.8); SEGS% (MANUAL) 60 % (42-75)
[2018-09-07 06:30] LABS: <PLATELET ESTIMATE> DECREASED; <PLT MORPHOLOGY> NORMAL PLT MORPH; ANISOCYTOSIS 1+; OVALOCYTES 1+; POLYCHROMASIA 1+
[2018-09-07 06:46] VITALS: BP 100/48
[2018-09-07] MEDS: INSULIN LISPRO 100 UNITS/ML, PEN SQ-INSULIN SCH ×4 (07:00→21:00)
[2018-09-07] MEDS: ONDANSETRON ODT 4 MG PO PRN (08:49)
[2018-09-07] MEDS: SUCRALFATE 1 GM TABLET PO SCH ×4 (08:49→21:00)
[2018-09-07] MEDS: SODIUM CHLORIDE FLUSH 10ML SYR IVF SCH ×2 (09:00→21:53)
[2018-09-07] MEDS: FOLIC ACID 1 MG TABLET PO SCH (10:09)
[2018-09-07] MEDS: FLUDROCORTISONE 0.1 MG TABLET PO SCH (10:09)
[2018-09-07] MEDS: LACTULOSE 10 GM/15 ML UDC PO SCH ×3 (10:09→21:47)
[2018-09-07] MEDS: RIFAXIMIN 550 MG TABLET PO SCH ×2 (10:09→21:00)
[2018-09-07] MEDS: MIDODRINE 5 MG TABLET PO SCH ×3 (10:10→21:00)
[2018-09-07] MEDS: PANTOPROZOLE 40MG TABLET PO SCH ×2 (10:10→21:00)
[2018-09-07 12:14] VITALS: BP 100/55
[2018-09-07] MEDS: ALBUMIN HUMAN 25% 100 ML IV PRN (17:45)
[2018-09-07 19:40] VITALS: BP 134/60
[2018-09-07] MEDS: INSULIN GLARGINE 100 UNITS/ML, PEN SQ-INSULIN SCH (21:52)
[2018-09-08 01:15] VITALS: BP 110/61
[2018-09-08 06:37] VITALS: BP 110/63
[2018-09-08] MEDS: INSULIN LISPRO 100 UNITS/ML, PEN SQ-INSULIN SCH ×4 (07:00→20:36)
[2018-09-08] MEDS: SUCRALFATE 1 GM TABLET PO SCH ×4 (07:53→20:35)
[2018-09-08] MEDS: RIFAXIMIN 550 MG TABLET PO SCH ×2 (08:02→20:35)
[2018-09-08] MEDS: FLUDROCORTISONE 0.1 MG TABLET PO SCH (08:02)
[2018-09-08] MEDS: FOLIC ACID 1 MG TABLET PO SCH (08:02)
[2018-09-08] MEDS: LACTULOSE 10 GM/15 ML UDC PO SCH ×3 (08:03→20:34)
[2018-09-08] MEDS: MIDODRINE 5 MG TABLET PO SCH ×3 (08:03→20:35)
[2018-09-08] MEDS: PANTOPROZOLE 40MG TABLET PO SCH ×2 (08:03→20:35)
[2018-09-08] MEDS: SODIUM CHLORIDE FLUSH 10ML SYR IVF SCH ×2 (08:04→20:36)
[2018-09-08 13:05] VITALS: BP 105/67
[2018-09-08 18:52] VITALS: BP 97/58
[2018-09-08] MEDS: INSULIN GLARGINE 100 UNITS/ML, PEN SQ-INSULIN SCH (20:36)
[2018-09-09 01:55] VITALS: BP 94/51
[2018-09-09] MEDS: INSULIN LISPRO 100 UNITS/ML, PEN SQ-INSULIN SCH ×4 (07:00→21:15)
[2018-09-09] MEDS: SUCRALFATE 1 GM TABLET PO SCH ×4 (07:00→21:13)
[2018-09-09 08:24] VITALS: BP 94/57
[2018-09-09] MEDS: MIDODRINE 5 MG TABLET PO SCH ×3 (09:00→21:14)
[2018-09-09] MEDS: PANTOPROZOLE 40MG TABLET PO SCH ×2 (09:00→21:13)
[2018-09-09] MEDS: RIFAXIMIN 550 MG TABLET PO SCH ×2 (09:00→21:13)
[2018-09-09] MEDS: FLUDROCORTISONE 0.1 MG TABLET PO SCH (09:00)
[2018-09-09] MEDS: FOLIC ACID 1 MG TABLET PO SCH (09:00)
[2018-09-09] MEDS: LACTULOSE 10 GM/15 ML UDC PO SCH ×3 (09:00→21:15)
[2018-09-09] MEDS: SODIUM CHLORIDE FLUSH 10ML SYR IVF SCH ×2 (09:00→21:13)
[2018-09-09 14:24] VITALS: BP 92/48
[2018-09-09 19:53] VITALS: BP 103/64
[2018-09-09] MEDS: INSULIN GLARGINE 100 UNITS/ML, PEN SQ-INSULIN SCH (21:16)
[2018-09-10] VITALS (8 sets, daily range): BP systolic 90–117; BP diastolic 34–65
[2018-09-10 05:50] LABS: MEAN CORPUSCULAR HEMOGLOBIN 36.4 pg (27.5-34.5); MEAN CORPUSCULAR HGB CONC 34.2 g/dL (33.2-36.2); MEAN CORPUSCULAR VOLUME 106.4 fL (81-97); MEAN PLATELET VOLUME 9.8 fL (7.4-10.4); RED CELL DISTRIBUTION WIDTH 24.5 % (9.4-14.8)
[2018-09-10 05:54] LABS: ALBUMIN 3.6 g/dL (3.4-5.0); ANION GAP 9 mmol/L (5-15); CALCIUM 9.7 mg/dL (8.5-10.1); CHLORIDE 103 mmol/L (98-107)
[2018-09-10 05:58] LABS: ALANINE AMINOTRANSFERASE 11 U/L (12-78); ALKALINE PHOSPHATASE 89 U/L (45-117); BILIRUBIN,TOTAL 2.4 mg/dL (0.2-1.0); CREATININE 5.24 mg/dL (0.7-1.3); TOTAL PROTEIN 5.9 g/dL (6.4-8.2)
[2018-09-10 06:05] LABS: PLATELET COUNT 30 x10^3/uL (130-400)
[2018-09-10 06:25] LABS: MD YES
[2018-09-10 06:28] LABS: ANISOCYTOSIS 1+; EOS#(MANUAL) 0.07 x10^3/uL (0.0-0.4); EOS% (MANUAL) 3 % (1-7); LYMPH#(MANUAL) 0.72 x10^3/uL (1-3.4); LYMPHS% (MANUAL) 30 % (22-44); MONOS#(MANUAL) 0.24 x10^3/uL (0.3-2.7); MONOS% (MANUAL) 10 % (2-9); POLYCHROMASIA 1+; SEG#(MANUAL) 1.37 x10^3/uL (1.8-6.8); SEGS% (MANUAL) 57 % (42-75)
[2018-09-10 06:29] LABS: <PLATELET ESTIMATE> DECREASED; <PLT MORPHOLOGY> NORMAL PLT MORPH; OVALOCYTES 1+
[2018-09-10] MEDS: PANTOPROZOLE 40MG TABLET PO SCH ×2 (10:31→21:00)
[2018-09-10] MEDS: LACTULOSE 10 GM/15 ML UDC PO SCH ×3 (10:31→21:00)
[2018-09-10] MEDS: SUCRALFATE 1 GM TABLET PO SCH ×4 (10:31→21:00)
[2018-09-10] MEDS: INSULIN LISPRO 100 UNITS/ML, PEN SQ-INSULIN SCH ×4 (10:32→21:00)
[2018-09-10] MEDS: MIDODRINE 5 MG TABLET PO SCH ×3 (10:32→21:47)
[2018-09-10] MEDS: FLUDROCORTISONE 0.1 MG TABLET PO SCH (10:32)
[2018-09-10] MEDS: FOLIC ACID 1 MG TABLET PO SCH (10:32)
[2018-09-10] MEDS: RIFAXIMIN 550 MG TABLET PO SCH ×2 (10:32→21:00)
[2018-09-10] MEDS: SODIUM CHLORIDE FLUSH 10ML SYR IVF SCH ×2 (10:33→21:47)
[2018-09-10] MEDS: INSULIN GLARGINE 100 UNITS/ML, PEN SQ-INSULIN SCH (21:50)
[2018-09-10] MEDS: ONDANSETRON ODT 4 MG PO PRN (23:36)
[2018-09-11 01:28] VITALS: BP 87/46
[2018-09-11] MEDS: INSULIN LISPRO 100 UNITS/ML, PEN SQ-INSULIN SCH ×4 (07:00→21:00)
[2018-09-11] MEDS: SODIUM CHLORIDE FLUSH 10ML SYR IVF SCH ×2 (08:00→21:58)
[2018-09-11] MEDS: SUCRALFATE 1 GM TABLET PO SCH ×4 (08:02→21:58)
[2018-09-11] MEDS: RIFAXIMIN 550 MG TABLET PO SCH ×2 (08:03→21:59)
[2018-09-11] MEDS: FOLIC ACID 1 MG TABLET PO SCH (08:03)
[2018-09-11] MEDS: MIDODRINE 5 MG TABLET PO SCH ×3 (08:03→21:58)
[2018-09-11] MEDS: FLUDROCORTISONE 0.1 MG TABLET PO SCH (08:03)
[2018-09-11] MEDS: PANTOPROZOLE 40MG TABLET PO SCH ×2 (08:03→21:59)
[2018-09-11] MEDS: LACTULOSE 10 GM/15 ML UDC PO SCH ×3 (08:04→21:57)
[2018-09-11 08:05] VITALS: BP 89/50
[2018-09-11] MEDS: ONDANSETRON 2MG/ML, 2ML IVPush PRN (09:43)
[2018-09-11 13:55] VITALS: BP 150/64
[2018-09-11 14:22] LABS: MEAN CORPUSCULAR HEMOGLOBIN 36.3 pg (27.5-34.5); MEAN CORPUSCULAR HGB CONC 34.7 g/dL (33.2-36.2); MEAN CORPUSCULAR VOLUME 104.6 fL (81-97); MEAN PLATELET VOLUME 9.8 fL (7.4-10.4); RED CELL DISTRIBUTION WIDTH 23.7 % (9.4-14.8)
[2018-09-11 14:26] LABS: PLATELET COUNT 34 x10^3/uL (130-400)
[2018-09-11 14:29] LABS: ALBUMIN 3.5 g/dL (3.4-5.0); ANION GAP 10 mmol/L (5-15); CALCIUM 9.5 mg/dL (8.5-10.1); CHLORIDE 102 mmol/L (98-107); CREATININE 6.22 mg/dL (0.7-1.3)
[2018-09-11 15:12] LABS: MD YES
[2018-09-11 15:19] LABS: BASOS#(MANUAL) 0.03 x10^3/uL (0-0.1); BASOS% (MANUAL) 1 % (0-1); EOS#(MANUAL) 0.05 x10^3/uL (0.0-0.4); EOS% (MANUAL) 2 % (1-7); LYMPHS% (MANUAL) 28 % (22-44); MONOS#(MANUAL) 0.15 x10^3/uL (0.3-2.7); MONOS% (MANUAL) 6 % (2-9); SEG#(MANUAL) 1.58 x10^3/uL (1.8-6.8); SEGS% (MANUAL) 63 % (42-75)
[2018-09-11 15:21] LABS: <PLATELET ESTIMATE> DECREASED; <PLT MORPHOLOGY> NORMAL PLT MORPH; OVALOCYTES 1+; POLYCHROMASIA 1+; TEAR DROPS 1+
[2018-09-11] MEDS: ONDANSETRON ODT 4 MG PO PRN (16:25)
[2018-09-11 19:44] VITALS: BP 90/51
[2018-09-11] MEDS: INSULIN GLARGINE 100 UNITS/ML, PEN SQ-INSULIN SCH (22:04)
[2018-09-12 01:10] VITALS: BP 108/52
[2018-09-12] MEDS: LACTULOSE 10 GM/15 ML UDC PO SCH ×4 (06:35→20:50)
[2018-09-12 08:07] LABS: MEAN CORPUSCULAR HEMOGLOBIN 35.8 pg (27.5-34.5); MEAN CORPUSCULAR HGB CONC 33.5 g/dL (33.2-36.2); MEAN CORPUSCULAR VOLUME 106.9 fL (81-97); MEAN PLATELET VOLUME 10.4 fL (7.4-10.4); RED BLOOD COUNT 2.24 x10^6/uL (4.38-5.82); RED CELL DISTRIBUTION WIDTH 23.8 % (9.4-14.8)
[2018-09-12 08:16] LABS: ALBUMIN 3.7 g/dL (3.4-5.0); ANION GAP 11 mmol/L (5-15); CALCIUM 9.3 mg/dL (8.5-10.1); CHLORIDE 97 mmol/L (98-107)
[2018-09-12 08:17] LABS: CREATININE 4.83 mg/dL (0.7-1.3)
[2018-09-12] MEDS: MIDODRINE 5 MG TABLET PO SCH ×3 (08:18→20:49)
[2018-09-12] MEDS: PANTOPROZOLE 40MG TABLET PO SCH ×2 (08:18→20:49)
[2018-09-12] MEDS: RIFAXIMIN 550 MG TABLET PO SCH ×2 (08:18→20:49)
[2018-09-12] MEDS: FLUDROCORTISONE 0.1 MG TABLET PO SCH (08:18)
[2018-09-12] MEDS: FOLIC ACID 1 MG TABLET PO SCH (08:18)
[2018-09-12] MEDS: SUCRALFATE 1 GM TABLET PO SCH ×4 (08:18→20:48)
[2018-09-12] MEDS: SODIUM CHLORIDE FLUSH 10ML SYR IVF SCH ×2 (08:18→20:48)
[2018-09-12] MEDS: INSULIN LISPRO 100 UNITS/ML, PEN SQ-INSULIN SCH ×4 (08:19→20:49)
[2018-09-12 08:26] VITALS: BP 100/53
[2018-09-12 08:27] LABS: MD YES
[2018-09-12 08:30] LABS: BAND#(MANUAL) 0.03 x10^3/uL; BANDS%(MANUAL) 1 % (0-7); BASOS#(MANUAL) 0.03 x10^3/uL (0-0.1); BASOS% (MANUAL) 1 % (0-1); EOS#(MANUAL) 0.03 x10^3/uL (0.0-0.4); EOS% (MANUAL) 1 % (1-7); LYMPH#(MANUAL) 1.09 x10^3/uL (1-3.4); LYMPHS% (MANUAL) 34 % (22-44); MONOS#(MANUAL) 0.16 x10^3/uL (0.3-2.7); MONOS% (MANUAL) 5 % (2-9); SEG#(MANUAL) 1.86 x10^3/uL (1.8-6.8); SEGS% (MANUAL) 58 % (42-75)
[2018-09-12 08:31] LABS: <PLATELET ESTIMATE> DECREASED; <PLT MORPHOLOGY> NORMAL PLT MORPH; ANISOCYTOSIS 1+; OVALOCYTES 1+; POLYCHROMASIA 1+; TEAR DROPS 1+
[2018-09-12 08:47] LABS: PLATELET COUNT 36 x10^3/uL (130-400)
[2018-09-12 13:06] VITALS: BP 105/58
[2018-09-12 20:34] VITALS: BP 96/49
[2018-09-12] MEDS: INSULIN GLARGINE 100 UNITS/ML, PEN SQ-INSULIN SCH (20:50)
[2018-09-13 02:44] VITALS: BP 106/52
[2018-09-13] MEDS: LACTULOSE 10 GM/15 ML UDC PO SCH ×4 (05:28→20:41)
[2018-09-13] MEDS: ONDANSETRON ODT 4 MG PO PRN (05:33)
[2018-09-13 07:29] VITALS: BP 98/58
[2018-09-13] MEDS: MIDODRINE 5 MG TABLET PO SCH ×3 (08:44→20:51)
[2018-09-13] MEDS: INSULIN LISPRO 100 UNITS/ML, PEN SQ-INSULIN SCH ×4 (08:44→20:43)
[2018-09-13] MEDS: RIFAXIMIN 550 MG TABLET PO SCH ×2 (08:44→20:41)
[2018-09-13] MEDS: SUCRALFATE 1 GM TABLET PO SCH ×4 (08:44→20:41)
[2018-09-13] MEDS: FOLIC ACID 1 MG TABLET PO SCH (08:44)
[2018-09-13] MEDS: SODIUM CHLORIDE FLUSH 10ML SYR IVF SCH ×2 (08:45→20:41)
[2018-09-13] MEDS: FLUDROCORTISONE 0.1 MG TABLET PO SCH (08:45)
[2018-09-13] MEDS: PANTOPROZOLE 40MG TABLET PO SCH ×2 (08:45→20:42)
[2018-09-13 09:35] LABS: ANION GAP 11 mmol/L (5-15); CALCIUM 9.7 mg/dL (8.5-10.1); CHLORIDE 101 mmol/L (98-107); CREATININE 7.11 mg/dL (0.7-1.3)
[2018-09-13] MEDS ORDERED: LACTULOSE 20 GM/30 ML UDC PO ONE (09:45)
[2018-09-13 12:43] VITALS: BP 99/56
[2018-09-13] MEDS: DARBEPOETIN 100 MCG/ML SQ SCH (17:35)
[2018-09-13 19:43] VITALS: BP 86/36
[2018-09-13] MEDS: INSULIN GLARGINE 100 UNITS/ML, PEN SQ-INSULIN SCH (20:43)
[2018-09-14] VITALS (7 sets, daily range): BP systolic 82–138; BP diastolic 42–64
[2018-09-14] MEDS: LACTULOSE 10 GM/15 ML UDC PO SCH ×4 (05:22→20:20)
[2018-09-14 05:39] LABS: ALBUMIN 3.2 g/dL (3.4-5.0); ANION GAP 12 mmol/L (5-15); CHLORIDE 101 mmol/L (98-107)
[2018-09-14 05:41] LABS: MEAN CORPUSCULAR HEMOGLOBIN 35.1 pg (27.5-34.5); MEAN CORPUSCULAR HGB CONC 32.7 g/dL (33.2-36.2); MEAN CORPUSCULAR VOLUME 107.3 fL (81-97); MEAN PLATELET VOLUME 10.2 fL (7.4-10.4); RED BLOOD COUNT 1.93 x10^6/uL (4.38-5.82)
[2018-09-14 05:47] LABS: PLATELET COUNT 42 x10^3/uL (130-400); RED CELL DISTRIBUTION WIDTH 23.7 % (9.4-14.8)
[2018-09-14 06:04] LABS: MD YES
[2018-09-14 06:07] LABS: <PLATELET ESTIMATE> DECREASED; <PLT MORPHOLOGY> NORMAL PLT MORPH; ANISOCYTOSIS 1+; BAND#(MANUAL) 0.07 x10^3/uL; BANDS%(MANUAL) 2 % (0-7); BASOS#(MANUAL) 0.07 x10^3/uL (0-0.1); BASOS% (MANUAL) 2 % (0-1); EOS#(MANUAL) 0.14 x10^3/uL (0.0-0.4); EOS% (MANUAL) 4 % (1-7); LYMPH#(MANUAL) 1.02 x10^3/uL (1-3.4); LYMPHS% (MANUAL) 30 % (22-44); MONOS#(MANUAL) 0.14 x10^3/uL (0.3-2.7); MONOS% (MANUAL) 4 % (2-9); OVALOCYTES 1+; POLYCHROMASIA 1+; SEG#(MANUAL) 1.97 x10^3/uL (1.8-6.8); SEGS% (MANUAL) 58 % (42-75); TEAR DROPS 1+
[2018-09-14 06:09] LABS: HYPOCHROMIA 1+
[2018-09-14] MEDS: INSULIN LISPRO 100 UNITS/ML, PEN SQ-INSULIN SCH ×4 (07:00→19:57)
[2018-09-14] MEDS: SODIUM CHLORIDE FLUSH 10ML SYR IVF SCH ×2 (09:00→20:31)
[2018-09-14] MEDS: RIFAXIMIN 550 MG TABLET PO SCH ×2 (09:04→20:32)
[2018-09-14] MEDS: SUCRALFATE 1 GM TABLET PO SCH ×4 (09:04→20:32)
[2018-09-14] MEDS: FOLIC ACID 1 MG TABLET PO SCH (09:04)
[2018-09-14] MEDS: MIDODRINE 5 MG TABLET PO SCH ×3 (09:04→20:33)
[2018-09-14] MEDS: PANTOPROZOLE 40MG TABLET PO SCH ×2 (09:04→20:32)
[2018-09-14] MEDS: FLUDROCORTISONE 0.1 MG TABLET PO SCH (09:12)
[2018-09-14] MEDS: ALBUMIN HUMAN 25% 100 ML IV PRN ×3 (10:56→12:56)
[2018-09-14] MEDS: INSULIN GLARGINE 100 UNITS/ML, PEN SQ-INSULIN SCH (20:32)
[2018-09-15 01:21] VITALS: BP 99/49
[2018-09-15 05:17] LABS: MEAN CORPUSCULAR HEMOGLOBIN 35.9 pg (27.5-34.5); MEAN CORPUSCULAR HGB CONC 34.3 g/dL (33.2-36.2); MEAN CORPUSCULAR VOLUME 104.5 fL (81-97); MEAN PLATELET VOLUME 10.3 fL (7.4-10.4); RED BLOOD COUNT 2.04 x10^6/uL (4.38-5.82); RED CELL DISTRIBUTION WIDTH 25.5 % (9.4-14.8)
[2018-09-15 05:20] LABS: ALANINE AMINOTRANSFERASE 22 U/L (12-78); ALBUMIN 3.8 g/dL (3.4-5.0); ANION GAP 7 mmol/L (5-15); CALCIUM 9.3 mg/dL (8.5-10.1); CHLORIDE 103 mmol/L (98-107)
[2018-09-15 05:22] LABS: ALKALINE PHOSPHATASE 119 U/L (45-117); BILIRUBIN,TOTAL 1.7 mg/dL (0.2-1.0); TOTAL PROTEIN 6.2 g/dL (6.4-8.2)
[2018-09-15 05:25] LABS: PLATELET COUNT 32 x10^3/uL (130-400)
[2018-09-15 05:43] LABS: MD YES
[2018-09-15 05:47] LABS: BAND#(MANUAL) 0.03 x10^3/uL; BANDS%(MANUAL) 1 % (0-7); LYMPH#(MANUAL) 0.75 x10^3/uL (1-3.4); LYMPHS% (MANUAL) 26 % (22-44); MONOS#(MANUAL) 0.17 x10^3/uL (0.3-2.7); MONOS% (MANUAL) 6 % (2-9); SEG#(MANUAL) 1.94 x10^3/uL (1.8-6.8); SEGS% (MANUAL) 67 % (42-75)
[2018-09-15 05:48] LABS: <PLATELET ESTIMATE> DECREASED; <PLT MORPHOLOGY> NORMAL PLT MORPH; ANISOCYTOSIS 1+; HYPOCHROMIA 1+; OVALOCYTES 1+; POLYCHROMASIA 1+
[2018-09-15] MEDS: LACTULOSE 10 GM/15 ML UDC PO SCH ×4 (05:49→21:00)
[2018-09-15] MEDS: INSULIN LISPRO 100 UNITS/ML, PEN SQ-INSULIN SCH ×4 (07:00→21:28)
[2018-09-15 07:10] VITALS: BP 100/52
[2018-09-15] MEDS: RIFAXIMIN 550 MG TABLET PO SCH ×2 (09:17→21:29)
[2018-09-15] MEDS: FOLIC ACID 1 MG TABLET PO SCH (09:17)
[2018-09-15] MEDS: MIDODRINE 5 MG TABLET PO SCH ×3 (09:17→21:29)
[2018-09-15] MEDS: SUCRALFATE 1 GM TABLET PO SCH ×4 (09:17→21:29)
[2018-09-15] MEDS: FLUDROCORTISONE 0.1 MG TABLET PO SCH (09:18)
[2018-09-15] MEDS: SODIUM CHLORIDE FLUSH 10ML SYR IVF SCH ×2 (09:18→21:00)
[2018-09-15] MEDS: PANTOPROZOLE 40MG TABLET PO SCH ×2 (09:18→21:29)
[2018-09-15 13:43] VITALS: BP 98/54
[2018-09-15 20:12] VITALS: BP 92/54
[2018-09-15] MEDS: INSULIN GLARGINE 100 UNITS/ML, PEN SQ-INSULIN SCH (21:28)
[2018-09-15] MEDS: ZOLPIDEM 5MG TABLET PO PRN (21:29)
[2018-09-16 03:30] VITALS: BP 87/52
[2018-09-16] MEDS: LACTULOSE 10 GM/15 ML UDC PO SCH ×5 (05:42→20:27)
[2018-09-16 06:04] LABS: ALBUMIN 3.4 g/dL (3.4-5.0); ANION GAP 8 mmol/L (5-15); CALCIUM 9.4 mg/dL (8.5-10.1); CHLORIDE 104 mmol/L (98-107)
[2018-09-16 06:08] LABS: ALANINE AMINOTRANSFERASE 21 U/L (12-78); ALKALINE PHOSPHATASE 158 U/L (45-117); BILIRUBIN,TOTAL 1.5 mg/dL (0.2-1.0); CREATININE 7.22 mg/dL (0.7-1.3); TOTAL PROTEIN 5.8 g/dL (6.4-8.2)
[2018-09-16 06:14] LABS: MEAN CORPUSCULAR HEMOGLOBIN 36.2 pg (27.5-34.5); MEAN CORPUSCULAR HGB CONC 34.5 g/dL (33.2-36.2); MEAN PLATELET VOLUME 10.1 fL (7.4-10.4); RED BLOOD COUNT 1.94 x10^6/uL (4.38-5.82); RED CELL DISTRIBUTION WIDTH 25.6 % (9.4-14.8)
[2018-09-16 06:17] LABS: PLATELET COUNT 31 x10^3/uL (130-400)
[2018-09-16 06:43] LABS: MD YES
[2018-09-16 06:45] LABS: <PLATELET ESTIMATE> DECREASED; <PLT MORPHOLOGY> NORMAL PLT MORPH; ANISOCYTOSIS 1+; EOS#(MANUAL) 0.03 x10^3/uL (0.0-0.4); EOS% (MANUAL) 1 % (1-7); HYPOCHROMIA 1+; LYMPH#(MANUAL) 0.55 x10^3/uL (1-3.4); LYMPHS% (MANUAL) 21 % (22-44); MONOS#(MANUAL) 0.21 x10^3/uL (0.3-2.7); MONOS% (MANUAL) 8 % (2-9); OVALOCYTES 1+; POLYCHROMASIA 1+; SEG#(MANUAL) 1.82 x10^3/uL (1.8-6.8); SEGS% (MANUAL) 70 % (42-75)
[2018-09-16] MEDS: INSULIN LISPRO 100 UNITS/ML, PEN SQ-INSULIN SCH ×4 (07:00→20:25)
[2018-09-16] MEDS: SUCRALFATE 1 GM TABLET PO SCH ×4 (07:00→20:24)
[2018-09-16 07:07] VITALS: BP 91/53
[2018-09-16] MEDS: ALBUMIN HUMAN 25% 100 ML IV PRN (10:46)
[2018-09-16] MEDS: ONDANSETRON ODT 4 MG PO PRN (11:40)
[2018-09-16] MEDS: SODIUM CHLORIDE FLUSH 10ML SYR IVF SCH ×2 (12:00→20:25)
[2018-09-16 12:53] VITALS: BP 123/62
[2018-09-16] MEDS: RIFAXIMIN 550 MG TABLET PO SCH ×2 (13:07→20:25)
[2018-09-16] MEDS: FOLIC ACID 1 MG TABLET PO SCH (13:07)
[2018-09-16] MEDS: MIDODRINE 5 MG TABLET PO SCH ×3 (13:07→20:24)
[2018-09-16] MEDS: PANTOPROZOLE 40MG TABLET PO SCH ×2 (13:08→20:25)
[2018-09-16] MEDS: FLUDROCORTISONE 0.1 MG TABLET PO SCH (13:08)
[2018-09-16 19:02] VITALS: BP 99/58
[2018-09-16] MEDS: INSULIN GLARGINE 100 UNITS/ML, PEN SQ-INSULIN SCH (20:25)
[2018-09-17 01:07] VITALS: BP 100/63
[2018-09-17] MEDS: LACTULOSE 10 GM/15 ML UDC PO SCH ×4 (05:26→21:08)
[2018-09-17 05:46] LABS: ALANINE AMINOTRANSFERASE 18 U/L (12-78); ALBUMIN 3.6 g/dL (3.4-5.0); ANION GAP 9 mmol/L (5-15); CHLORIDE 99 mmol/L (98-107); CREATININE 5.26 mg/dL (0.7-1.3)
[2018-09-17 05:48] LABS: ALKALINE PHOSPHATASE 104 U/L (45-117); BILIRUBIN,TOTAL 2.1 mg/dL (0.2-1.0); TOTAL PROTEIN 5.6 g/dL (6.4-8.2)
[2018-09-17] MEDS: INSULIN LISPRO 100 UNITS/ML, PEN SQ-INSULIN SCH ×4 (07:00→21:01)
[2018-09-17 07:03] VITALS: BP 125/55
[2018-09-17] MEDS: SODIUM CHLORIDE FLUSH 10ML SYR IVF SCH ×2 (08:30→20:59)
[2018-09-17] MEDS: RIFAXIMIN 550 MG TABLET PO SCH ×2 (08:31→20:59)
[2018-09-17] MEDS: FLUDROCORTISONE 0.1 MG TABLET PO SCH (08:31)
[2018-09-17] MEDS: MIDODRINE 5 MG TABLET PO SCH ×3 (08:31→21:00)
[2018-09-17] MEDS: PANTOPROZOLE 40MG TABLET PO SCH ×2 (08:32→20:59)
[2018-09-17] MEDS: SUCRALFATE 1 GM TABLET PO SCH ×4 (08:32→21:00)
[2018-09-17] MEDS: FOLIC ACID 1 MG TABLET PO SCH (08:32)
[2018-09-17 13:23] VITALS: BP 173/92
[2018-09-17 13:27] VITALS: BP_SYST 131; BP_SYST 144; BP_DIAS 66; BP_DIAS 84
[2018-09-17 18:50] VITALS: BP 128/62
[2018-09-17] MEDS: INSULIN GLARGINE 100 UNITS/ML, PEN SQ-INSULIN SCH (21:01)
[2018-09-18] VITALS (9 sets, daily range): BP systolic 89–131; BP diastolic 46–74
[2018-09-18 06:12] LABS: MEAN CORPUSCULAR HEMOGLOBIN 35.8 pg (27.5-34.5); MEAN CORPUSCULAR VOLUME 105.2 fL (81-97); MEAN PLATELET VOLUME 10.1 fL (7.4-10.4); RED BLOOD COUNT 1.86 x10^6/uL (4.38-5.82)
[2018-09-18 06:13] LABS: ALANINE AMINOTRANSFERASE 19 U/L (12-78); ALBUMIN 3.2 g/dL (3.4-5.0); ANION GAP 11 mmol/L (5-15); CALCIUM 8.8 mg/dL (8.5-10.1); CHLORIDE 99 mmol/L (98-107); CREATININE 7.34 mg/dL (0.7-1.3)
[2018-09-18 06:15] LABS: ALKALINE PHOSPHATASE 115 U/L (45-117); BILIRUBIN,TOTAL 1.6 mg/dL (0.2-1.0); TOTAL PROTEIN 5.4 g/dL (6.4-8.2)
[2018-09-18] MEDS: LACTULOSE 10 GM/15 ML UDC PO SCH ×4 (06:27→21:15)
[2018-09-18] MEDS: SUCRALFATE 1 GM TABLET PO SCH ×4 (06:27→21:16)
[2018-09-18 06:37] LABS: PLATELET COUNT 34 x10^3/uL (130-400)
[2018-09-18] MEDS: INSULIN LISPRO 100 UNITS/ML, PEN SQ-INSULIN SCH ×4 (07:00→21:17)
[2018-09-18 08:22] LABS: MD YES
[2018-09-18 08:25] LABS: BAND#(MANUAL) 0.05 x10^3/uL; BANDS%(MANUAL) 1 % (0-7); BASOS#(MANUAL) 0.11 x10^3/uL (0-0.1); BASOS% (MANUAL) 2 % (0-1); LYMPH#(MANUAL) 0.69 x10^3/uL (1-3.4); LYMPHS% (MANUAL) 13 % (22-44); MONOS#(MANUAL) 0.42 x10^3/uL (0.3-2.7); MONOS% (MANUAL) 8 % (2-9); REACTIVE LYMPHS # (MANUAL) 0.05 x10^3/uL (0-0); REACTIVE LYMPHS % (MANUAL) 1 % (0-0); SEG#(MANUAL) 3.98 x10^3/uL (1.8-6.8); SEGS% (MANUAL) 75 % (42-75)
[2018-09-18 08:26] LABS: ANISOCYTOSIS 1+; POLYCHROMASIA 1+
[2018-09-18 08:27] LABS: <PLATELET ESTIMATE> DECREASED; <PLT MORPHOLOGY> NORMAL PLT MORPH; OVALOCYTES 1+
[2018-09-18 08:28] LABS: BASOPHILLIC STIPPLING 1+
[2018-09-18] MEDS: SODIUM CHLORIDE FLUSH 10ML SYR IVF SCH ×2 (08:57→21:16)
[2018-09-18] MEDS: MIDODRINE 5 MG TABLET PO SCH ×3 (08:58→21:15)
[2018-09-18] MEDS: PANTOPROZOLE 40MG TABLET PO SCH ×2 (08:58→21:16)
[2018-09-18] MEDS: FOLIC ACID 1 MG TABLET PO SCH (08:58)
[2018-09-18] MEDS: RIFAXIMIN 550 MG TABLET PO SCH ×2 (08:58→21:16)
[2018-09-18] MEDS: FLUDROCORTISONE 0.1 MG TABLET PO SCH (09:00)
[2018-09-18] MEDS: ZOLPIDEM 5MG TABLET PO PRN (21:15)
[2018-09-18] MEDS: INSULIN GLARGINE 100 UNITS/ML, PEN SQ-INSULIN SCH (21:17)
[2018-09-19 03:13] VITALS: BP 97/56
[2018-09-19 05:24] LABS: ALANINE AMINOTRANSFERASE 19 U/L (12-78); ALBUMIN 3.2 g/dL (3.4-5.0); ANION GAP 9 mmol/L (5-15); CALCIUM 8.4 mg/dL (8.5-10.1); CHLORIDE 99 mmol/L (98-107); CREATININE 4.95 mg/dL (0.7-1.3)
[2018-09-19 05:27] LABS: ALKALINE PHOSPHATASE 108 U/L (45-117); BILIRUBIN,TOTAL 1.7 mg/dL (0.2-1.0); MEAN CORPUSCULAR HEMOGLOBIN 36.3 pg (27.5-34.5); MEAN CORPUSCULAR HGB CONC 35.1 g/dL (33.2-36.2); MEAN CORPUSCULAR VOLUME 103.4 fL (81-97); MEAN PLATELET VOLUME 10.2 fL (7.4-10.4); RED BLOOD COUNT 2.08 x10^6/uL (4.38-5.82); TOTAL PROTEIN 5.3 g/dL (6.4-8.2)
[2018-09-19 05:50] LABS: PLATELET COUNT 33 x10^3/uL (130-400)
[2018-09-19] MEDS: LACTULOSE 10 GM/15 ML UDC PO SCH ×4 (05:59→22:26)
[2018-09-19 06:13] LABS: BASOPHILS # (AUTO) 0.02 x10^3/uL (0-0.1); BASOPHILS % (AUTO) 0 % (0-1); EOSINOPHILS # (AUTO) 0.03 x10^3/uL (0-0.4); EOSINOPHILS % (AUTO) 1 % (1-7); LYMPHOCYTES # (AUTO) 0.92 x10^3/uL (1-3.4); LYMPHOCYTES % (AUTO) 21 % (22-44); MD MORPH REVIEW ONLY; MONOCYTES # (AUTO) 0.57 x10^3/uL (0.2-0.8); MONOCYTES % (AUTO) 13 % (2-9); NEUTROPHILS # (AUTO) 2.86 x10^3/uL (1.8-6.8); NEUTROPHILS % (AUTO) 65 % (42-75)
[2018-09-19 06:16] LABS: ANISOCYTOSIS 1+; OVALOCYTES 1+; POLYCHROMASIA 1+
[2018-09-19 06:17] LABS: <PLATELET ESTIMATE> DECREASED; <PLT MORPHOLOGY> NORMAL PLT MORPH
[2018-09-19] MEDS: INSULIN LISPRO 100 UNITS/ML, PEN SQ-INSULIN SCH ×4 (07:00→21:00)
[2018-09-19 07:42] VITALS: BP 90/56
[2018-09-19] MEDS: FOLIC ACID 1 MG TABLET PO SCH (07:45)
[2018-09-19] MEDS: SODIUM CHLORIDE FLUSH 10ML SYR IVF SCH ×2 (07:45→22:25)
[2018-09-19] MEDS: RIFAXIMIN 550 MG TABLET PO SCH ×2 (07:45→22:26)
[2018-09-19] MEDS: SUCRALFATE 1 GM TABLET PO SCH ×4 (07:45→22:25)
[2018-09-19] MEDS: FLUDROCORTISONE 0.1 MG TABLET PO SCH (07:45)
[2018-09-19] MEDS: MIDODRINE 5 MG TABLET PO SCH ×3 (07:46→22:25)
[2018-09-19] MEDS: PANTOPROZOLE 40MG TABLET PO SCH ×2 (07:46→22:26)
[2018-09-19 15:50] VITALS: BP 89/60
[2018-09-19 19:47] VITALS: BP 84/42
[2018-09-19 20:21] VITALS: BP 102/56
[2018-09-19] MEDS: INSULIN GLARGINE 100 UNITS/ML, PEN SQ-INSULIN SCH (21:00)
[2018-09-19] MEDS: ZOLPIDEM 5MG TABLET PO PRN (22:25)
[2018-09-20] VITALS (10 sets, daily range): BP systolic 87–147; BP diastolic 47–61
[2018-09-20 04:49] LABS: MEAN CORPUSCULAR HEMOGLOBIN 35.5 pg (27.5-34.5); MEAN CORPUSCULAR HGB CONC 34.3 g/dL (33.2-36.2); MEAN CORPUSCULAR VOLUME 103.5 fL (81-97); MEAN PLATELET VOLUME 10.1 fL (7.4-10.4); RED BLOOD COUNT 1.98 x10^6/uL (4.38-5.82); RED CELL DISTRIBUTION WIDTH 25.9 % (9.4-14.8)
[2018-09-20 04:52] LABS: PLATELET COUNT 36 x10^3/uL (130-400)
[2018-09-20 04:57] LABS: ALANINE AMINOTRANSFERASE 22 U/L (12-78); ALBUMIN 3.1 g/dL (3.4-5.0); ANION GAP 11 mmol/L (5-15); CALCIUM 8.7 mg/dL (8.5-10.1); CHLORIDE 99 mmol/L (98-107); CREATININE 6.94 mg/dL (0.7-1.3)
[2018-09-20 04:59] LABS: ALKALINE PHOSPHATASE 128 U/L (45-117); BILIRUBIN,TOTAL 1.2 mg/dL (0.2-1.0); TOTAL PROTEIN 5.3 g/dL (6.4-8.2)
[2018-09-20 05:51] LABS: BASOPHILS # (AUTO) 0.01 x10^3/uL (0-0.1); BASOPHILS % (AUTO) 0 % (0-1); EOSINOPHILS # (AUTO) 0.06 x10^3/uL (0-0.4); EOSINOPHILS % (AUTO) 2 % (1-7); LYMPHOCYTES # (AUTO) 0.88 x10^3/uL (1-3.4); LYMPHOCYTES % (AUTO) 26 % (22-44); MD SCAN; MONOCYTES # (AUTO) 0.42 x10^3/uL (0.2-0.8); MONOCYTES % (AUTO) 12 % (2-9); NEUTROPHILS # (AUTO) 2.04 x10^3/uL (1.8-6.8); NEUTROPHILS % (AUTO) 60 % (42-75)
[2018-09-20] MEDS: LACTULOSE 10 GM/15 ML UDC PO SCH ×4 (06:01→21:27)
[2018-09-20] MEDS: INSULIN LISPRO 100 UNITS/ML, PEN SQ-INSULIN SCH ×4 (07:00→21:00)
[2018-09-20] MEDS: SUCRALFATE 1 GM TABLET PO SCH ×4 (08:56→21:27)
[2018-09-20] MEDS: RIFAXIMIN 550 MG TABLET PO SCH ×2 (08:56→21:27)
[2018-09-20] MEDS: SODIUM CHLORIDE FLUSH 10ML SYR IVF SCH ×2 (08:56→21:32)
[2018-09-20] MEDS: FLUDROCORTISONE 0.1 MG TABLET PO SCH (08:56)
[2018-09-20] MEDS: FOLIC ACID 1 MG TABLET PO SCH (08:57)
[2018-09-20] MEDS: PANTOPROZOLE 40MG TABLET PO SCH ×2 (08:57→21:27)
[2018-09-20] MEDS: MIDODRINE 5 MG TABLET PO SCH ×3 (09:23→21:27)
[2018-09-20] MEDS: DARBEPOETIN 100 MCG/ML SQ SCH (17:34)
[2018-09-20] MEDS: ZOLPIDEM 5MG TABLET PO PRN (21:27)
[2018-09-20] MEDS: INSULIN GLARGINE 100 UNITS/ML, PEN SQ-INSULIN SCH (21:43)
[2018-09-21] VITALS (7 sets, daily range): BP systolic 83–113; BP diastolic 41–70
[2018-09-21] MEDS: LACTULOSE 10 GM/15 ML UDC PO SCH ×4 (05:14→21:03)
[2018-09-21 06:38] LABS: MEAN CORPUSCULAR HEMOGLOBIN 34.4 pg (27.5-34.5); MEAN CORPUSCULAR HGB CONC 33.8 g/dL (33.2-36.2); MEAN CORPUSCULAR VOLUME 101.6 fL (81-97); MEAN PLATELET VOLUME 9.8 fL (7.4-10.4); RED BLOOD COUNT 2.16 x10^6/uL (4.38-5.82)
[2018-09-21 06:41] LABS: CHLORIDE 100 mmol/L (98-107)
[2018-09-21 06:42] LABS: PLATELET COUNT 40 x10^3/uL (130-400); RED CELL DISTRIBUTION WIDTH 25.5 % (9.4-14.8)
[2018-09-21 06:54] LABS: ALANINE AMINOTRANSFERASE 19 U/L (12-78); ALBUMIN 2.9 g/dL (3.4-5.0); ALKALINE PHOSPHATASE 125 U/L (45-117); ANION GAP 11 mmol/L (5-15); CALCIUM 9.1 mg/dL (8.5-10.1); CREATININE 8.94 mg/dL (0.7-1.3); TOTAL PROTEIN 5.2 g/dL (6.4-8.2)
[2018-09-21 07:12] LABS: BASOPHILS # (AUTO) 0.01 x10^3/uL (0-0.1); BASOPHILS % (AUTO) 0 % (0-1); EOSINOPHILS # (AUTO) 0.06 x10^3/uL (0-0.4); EOSINOPHILS % (AUTO) 2 % (1-7); LYMPHOCYTES # (AUTO) 0.66 x10^3/uL (1-3.4); LYMPHOCYTES % (AUTO) 22 % (22-44); MD SCAN; MONOCYTES % (AUTO) 13 % (2-9); NEUTROPHILS # (AUTO) 1.85 x10^3/uL (1.8-6.8); NEUTROPHILS % (AUTO) 62 % (42-75)
[2018-09-21] MEDS: MIDODRINE 5 MG TABLET PO SCH ×3 (08:20→21:02)
[2018-09-21] MEDS: PANTOPROZOLE 40MG TABLET PO SCH ×2 (08:21→21:02)
[2018-09-21] MEDS: SUCRALFATE 1 GM TABLET PO SCH ×4 (08:21→21:02)
[2018-09-21] MEDS: INSULIN LISPRO 100 UNITS/ML, PEN SQ-INSULIN SCH ×4 (08:25→22:16)
[2018-09-21] MEDS: SODIUM CHLORIDE FLUSH 10ML SYR IVF SCH ×2 (08:26→21:00)
[2018-09-21 12:20] LABS: MEAN CORPUSCULAR HEMOGLOBIN 33.9 pg (27.5-34.5); MEAN CORPUSCULAR HGB CONC 33.7 g/dL (33.2-36.2); MEAN CORPUSCULAR VOLUME 100.8 fL (81-97); MEAN PLATELET VOLUME 9.8 fL (7.4-10.4); RED BLOOD COUNT 2.22 x10^6/uL (4.38-5.82); RED CELL DISTRIBUTION WIDTH 25.9 % (9.4-14.8)
[2018-09-21 12:21] LABS: HEMOGRAM NOTE RECHECKED; PLATELET COUNT 42 x10^3/uL (130-400)
[2018-09-21 12:50] LABS: BASOPHILS % (AUTO) 0 % (0-1); EOSINOPHILS # (AUTO) 0.02 x10^3/uL (0-0.4); EOSINOPHILS % (AUTO) 1 % (1-7); LYMPHOCYTES # (AUTO) 0.53 x10^3/uL (1-3.4); LYMPHOCYTES % (AUTO) 16 % (22-44); MD SCAN; MONOCYTES % (AUTO) 12 % (2-9); NEUTROPHILS # (AUTO) 2.32 x10^3/uL (1.8-6.8); NEUTROPHILS % (AUTO) 71 % (42-75)
[2018-09-21] MEDS: FOLIC ACID 1 MG TABLET PO SCH (16:16)
[2018-09-21] MEDS: RIFAXIMIN 550 MG TABLET PO SCH ×2 (16:17→21:01)
[2018-09-21] MEDS: FLUDROCORTISONE 0.1 MG TABLET PO SCH (16:17)
[2018-09-21] MEDS ORDERED: SODIUM CHLORIDE 0.9%, 250ML IVBOLUS ONE (18:00)
[2018-09-21 19:21] LABS: MEAN CORPUSCULAR HEMOGLOBIN 35.7 pg (27.5-34.5); MEAN CORPUSCULAR HGB CONC 35.2 g/dL (33.2-36.2); MEAN CORPUSCULAR VOLUME 101.3 fL (81-97); MEAN PLATELET VOLUME 9.6 fL (7.4-10.4); RED CELL DISTRIBUTION WIDTH 25.6 % (9.4-14.8)
[2018-09-21 19:22] LABS: MD YES
[2018-09-21 19:26] LABS: PLATELET COUNT 37 x10^3/uL (130-400)
[2018-09-21 19:35] LABS: BAND#(MANUAL) 0.06 x10^3/uL; BANDS%(MANUAL) 2 % (0-7); LYMPH#(MANUAL) 0.58 x10^3/uL (1-3.4); LYMPHS% (MANUAL) 20 % (22-44); MONOS#(MANUAL) 0.26 x10^3/uL (0.3-2.7); MONOS% (MANUAL) 9 % (2-9); SEGS% (MANUAL) 69 % (42-75)
[2018-09-21 19:37] LABS: OVALOCYTES 1+; POLYCHROMASIA 1+; TEAR DROPS 1+
[2018-09-21 19:42] LABS: <PLATELET ESTIMATE> DECREASED; <PLT MORPHOLOGY> NORMAL PLT MORPH
[2018-09-21] MEDS: INSULIN GLARGINE 100 UNITS/ML, PEN SQ-INSULIN SCH (22:16)
[2018-09-21] MEDS: ZOLPIDEM 5MG TABLET PO PRN (22:17)
[2018-09-22 02:40] VITALS: BP 101/63
[2018-09-22 03:13] LABS: MEAN CORPUSCULAR HEMOGLOBIN 35.2 pg (27.5-34.5); MEAN CORPUSCULAR HGB CONC 34.9 g/dL (33.2-36.2); MEAN CORPUSCULAR VOLUME 100.9 fL (81-97); RED BLOOD COUNT 2.09 x10^6/uL (4.38-5.82); RED CELL DISTRIBUTION WIDTH 25.7 % (9.4-14.8)
[2018-09-22 03:21] LABS: ALANINE AMINOTRANSFERASE 24 U/L (12-78); ALBUMIN 2.8 g/dL (3.4-5.0); ANION GAP 11 mmol/L (5-15); CALCIUM 8.2 mg/dL (8.5-10.1); CHLORIDE 99 mmol/L (98-107); CREATININE 5.22 mg/dL (0.7-1.3)
[2018-09-22 03:23] LABS: ALKALINE PHOSPHATASE 104 U/L (45-117); BILIRUBIN,TOTAL 1.6 mg/dL (0.2-1.0)
[2018-09-22 03:41] LABS: BASOPHILS # (AUTO) 0.01 x10^3/uL (0-0.1); BASOPHILS % (AUTO) 0 % (0-1); EOSINOPHILS # (AUTO) 0.04 x10^3/uL (0-0.4); EOSINOPHILS % (AUTO) 1 % (1-7); LYMPHOCYTES # (AUTO) 0.64 x10^3/uL (1-3.4); LYMPHOCYTES % (AUTO) 20 % (22-44); MD SCAN; MEAN PLATELET VOLUME 9.6 fL (7.4-10.4); MONOCYTES # (AUTO) 0.49 x10^3/uL (0.2-0.8); MONOCYTES % (AUTO) 15 % (2-9); NEUTROPHILS # (AUTO) 2.07 x10^3/uL (1.8-6.8); NEUTROPHILS % (AUTO) 64 % (42-75)
[2018-09-22 03:44] LABS: PLATELET COUNT 36 x10^3/uL (130-400)
[2018-09-22] MEDS: LACTULOSE 10 GM/15 ML UDC PO SCH ×4 (06:00→21:00)
[2018-09-22] MEDS ORDERED: POTASSIUM CHLORIDE 40 MEQ in SODIUM CHLORIDE 0.9% 500 ML IV ONE (07:00)
[2018-09-22] MEDS: INSULIN LISPRO 100 UNITS/ML, PEN SQ-INSULIN SCH ×4 (07:00→21:01)
[2018-09-22 07:21] VITALS: BP 104/57
[2018-09-22] MEDS: FOLIC ACID 1 MG TABLET PO SCH (08:22)
[2018-09-22] MEDS: SODIUM CHLORIDE FLUSH 10ML SYR IVF SCH ×2 (08:22→20:59)
[2018-09-22] MEDS: FLUDROCORTISONE 0.1 MG TABLET PO SCH (08:22)
[2018-09-22] MEDS: MIDODRINE 5 MG TABLET PO SCH ×3 (08:22→21:00)
[2018-09-22] MEDS: SUCRALFATE 1 GM TABLET PO SCH ×4 (08:22→21:00)
[2018-09-22] MEDS: RIFAXIMIN 550 MG TABLET PO SCH ×2 (08:22→21:00)
[2018-09-22] MEDS: PANTOPROZOLE 40MG TABLET PO SCH ×2 (08:22→21:00)
[2018-09-22 12:23] LABS: BASOPHILS # (AUTO) 0.01 x10^3/uL (0-0.1); BASOPHILS % (AUTO) 0 % (0-1); EOSINOPHILS # (AUTO) 0.02 x10^3/uL (0-0.4); EOSINOPHILS % (AUTO) 1 % (1-7); LYMPHOCYTES # (AUTO) 0.53 x10^3/uL (1-3.4); LYMPHOCYTES % (AUTO) 18 % (22-44); MD NO; MEAN CORPUSCULAR HGB CONC 34.5 g/dL (33.2-36.2); MEAN CORPUSCULAR VOLUME 101.6 fL (81-97); MONOCYTES # (AUTO) 0.45 x10^3/uL (0.2-0.8); MONOCYTES % (AUTO) 16 % (2-9); NEUTROPHILS # (AUTO) 1.89 x10^3/uL (1.8-6.8); NEUTROPHILS % (AUTO) 65 % (42-75); RED BLOOD COUNT 2.06 x10^6/uL (4.38-5.82); RED CELL DISTRIBUTION WIDTH 25.6 % (9.4-14.8)
[2018-09-22 12:27] LABS: PLATELET COUNT 41 x10^3/uL (130-400)
[2018-09-22 13:29] VITALS: BP 103/44
[2018-09-22] MEDS: INSULIN GLARGINE 100 UNITS/ML, PEN SQ-INSULIN SCH (21:01)
[2018-09-22 21:34] VITALS: BP 131/60
[2018-09-23 00:41] VITALS: BP 101/57
[2018-09-23] MEDS: LACTULOSE 10 GM/15 ML UDC PO SCH ×4 (06:12→21:30)
[2018-09-23 06:56] LABS: HEMOGRAM NOTE RECHECKED
[2018-09-23 07:00] LABS: ALBUMIN 2.7 g/dL (3.4-5.0); ANION GAP 9 mmol/L (5-15); CALCIUM 8.8 mg/dL (8.5-10.1); CHLORIDE 101 mmol/L (98-107); CREATININE 7.35 mg/dL (0.7-1.3)
[2018-09-23] MEDS: RIFAXIMIN 550 MG TABLET PO SCH ×2 (08:58→21:29)
[2018-09-23] MEDS: SUCRALFATE 1 GM TABLET PO SCH ×4 (08:58→21:30)
[2018-09-23] MEDS: FLUDROCORTISONE 0.1 MG TABLET PO SCH (08:58)
[2018-09-23] MEDS: PANTOPROZOLE 40MG TABLET PO SCH ×2 (08:58→21:32)
[2018-09-23] MEDS: MIDODRINE 5 MG TABLET PO SCH ×3 (08:59→21:29)
[2018-09-23] MEDS: FOLIC ACID 1 MG TABLET PO SCH (08:59)
[2018-09-23] MEDS: SODIUM CHLORIDE FLUSH 10ML SYR IVF SCH ×2 (08:59→21:30)
[2018-09-23 09:12] VITALS: BP 89/48
[2018-09-23] MEDS: INSULIN LISPRO 100 UNITS/ML, PEN SQ-INSULIN SCH ×4 (09:23→21:00)
[2018-09-23] MEDS: ALBUMIN HUMAN 25% 100 ML IV PRN (11:05)
[2018-09-23 13:55] VITALS: BP 82/45
[2018-09-23] MEDS: INSULIN GLARGINE 100 UNITS/ML, PEN SQ-INSULIN SCH (21:27)
[2018-09-23 21:58] VITALS: BP 96/31
[2018-09-24 03:55] VITALS: BP 111/62
[2018-09-24] MEDS: LACTULOSE 10 GM/15 ML UDC PO SCH ×4 (05:55→20:44)
[2018-09-24] MEDS: INSULIN LISPRO 100 UNITS/ML, PEN SQ-INSULIN SCH ×4 (07:00→20:47)
[2018-09-24 07:40] VITALS: BP 95/59
[2018-09-24] MEDS: RIFAXIMIN 550 MG TABLET PO SCH ×2 (10:32→20:44)
[2018-09-24] MEDS: FOLIC ACID 1 MG TABLET PO SCH (10:32)
[2018-09-24] MEDS: SUCRALFATE 1 GM TABLET PO SCH ×4 (10:32→20:44)
[2018-09-24] MEDS: PANTOPROZOLE 40MG TABLET PO SCH ×2 (10:32→20:43)
[2018-09-24] MEDS: FLUDROCORTISONE 0.1 MG TABLET PO SCH (10:32)
[2018-09-24] MEDS: MIDODRINE 5 MG TABLET PO SCH ×3 (10:32→20:44)
[2018-09-24] MEDS: SODIUM CHLORIDE FLUSH 10ML SYR IVF SCH ×2 (10:33→20:46)
[2018-09-24 12:47] VITALS: BP 113/52
[2018-09-24 19:21] VITALS: BP 112/57
[2018-09-24] MEDS: INSULIN GLARGINE 100 UNITS/ML, PEN SQ-INSULIN SCH (20:47)
[2018-09-25] VITALS (7 sets, daily range): BP systolic 95–115; BP diastolic 54–68
[2018-09-25] MEDS: LACTULOSE 10 GM/15 ML UDC PO SCH ×4 (05:50→20:56)
[2018-09-25] MEDS: INSULIN LISPRO 100 UNITS/ML, PEN SQ-INSULIN SCH ×4 (07:00→20:57)
[2018-09-25] MEDS: SUCRALFATE 1 GM TABLET PO SCH ×4 (07:49→20:55)
[2018-09-25 07:58] LABS: ALBUMIN 2.8 g/dL (3.4-5.0); ANION GAP 8 mmol/L (5-15); CALCIUM 8.4 mg/dL (8.5-10.1); CHLORIDE 102 mmol/L (98-107)
[2018-09-25 07:59] LABS: CREATININE 6.91 mg/dL (0.7-1.3)
[2018-09-25 08:08] LABS: MEAN CORPUSCULAR HEMOGLOBIN 34.3 pg (27.5-34.5); MEAN CORPUSCULAR HGB CONC 33.4 g/dL (33.2-36.2); MEAN CORPUSCULAR VOLUME 102.6 fL (81-97); MEAN PLATELET VOLUME 8.8 fL (7.4-10.4); RED BLOOD COUNT 1.87 x10^6/uL (4.38-5.82)
[2018-09-25 08:21] LABS: PLATELET COUNT 37 x10^3/uL (130-400)
[2018-09-25 08:23] LABS: RED CELL DISTRIBUTION WIDTH 24.5 % (9.4-14.8)
[2018-09-25 08:25] LABS: BASOPHILS # (AUTO) 0.02 x10^3/uL (0-0.1); BASOPHILS % (AUTO) 1 % (0-1); EOSINOPHILS # (AUTO) 0.04 x10^3/uL (0-0.4); EOSINOPHILS % (AUTO) 2 % (1-7); LYMPHOCYTES # (AUTO) 0.76 x10^3/uL (1-3.4); LYMPHOCYTES % (AUTO) 33 % (22-44); MD SCAN; MONOCYTES # (AUTO) 0.35 x10^3/uL (0.2-0.8); MONOCYTES % (AUTO) 15 % (2-9); NEUTROPHILS # (AUTO) 1.15 x10^3/uL (1.8-6.8); NEUTROPHILS % (AUTO) 50 % (42-75)
[2018-09-25] MEDS: SODIUM CHLORIDE FLUSH 10ML SYR IVF SCH ×2 (08:49→20:56)
[2018-09-25] MEDS: PANTOPROZOLE 40MG TABLET PO SCH ×2 (08:50→20:56)
[2018-09-25] MEDS: FLUDROCORTISONE 0.1 MG TABLET PO SCH (08:50)
[2018-09-25] MEDS: RIFAXIMIN 550 MG TABLET PO SCH ×2 (08:50→20:56)
[2018-09-25] MEDS: FOLIC ACID 1 MG TABLET PO SCH (08:50)
[2018-09-25] MEDS: MIDODRINE 5 MG TABLET PO SCH ×3 (08:59→20:56)
[2018-09-25] MEDS: INSULIN GLARGINE 100 UNITS/ML, PEN SQ-INSULIN SCH (20:57)
[2018-09-25] MEDS: ZOLPIDEM 5MG TABLET PO PRN (23:46)
[2018-09-26] VITALS (8 sets, daily range): BP systolic 97–161; BP diastolic 57–69
[2018-09-26] MEDS: LACTULOSE 10 GM/15 ML UDC PO SCH ×4 (06:00→20:32)
[2018-09-26] MEDS: SUCRALFATE 1 GM TABLET PO SCH ×4 (07:00→20:32)
[2018-09-26] MEDS: INSULIN LISPRO 100 UNITS/ML, PEN SQ-INSULIN SCH ×4 (07:00→20:33)
[2018-09-26 07:50] LABS: MEAN CORPUSCULAR HEMOGLOBIN 33.6 pg (27.5-34.5); MEAN CORPUSCULAR HGB CONC 33.4 g/dL (33.2-36.2); MEAN CORPUSCULAR VOLUME 100.5 fL (81-97); MEAN PLATELET VOLUME 8.8 fL (7.4-10.4); RED BLOOD COUNT 1.99 x10^6/uL (4.38-5.82); RED CELL DISTRIBUTION WIDTH 24.5 % (9.4-14.8)
[2018-09-26 07:52] LABS: PLATELET COUNT 39 x10^3/uL (130-400)
[2018-09-26 07:57] LABS: ALBUMIN 2.7 g/dL (3.4-5.0); ANION GAP 8 mmol/L (5-15); CALCIUM 7.9 mg/dL (8.5-10.1); CHLORIDE 98 mmol/L (98-107); CREATININE 5.02 mg/dL (0.7-1.3)
[2018-09-26 08:24] LABS: MD YES
[2018-09-26 08:27] LABS: BAND#(MANUAL) 0.15 x10^3/uL; BANDS%(MANUAL) 6 % (0-7); BASOS#(MANUAL) 0.05 x10^3/uL (0-0.1); BASOS% (MANUAL) 2 % (0-1); EOS#(MANUAL) 0.03 x10^3/uL (0.0-0.4); EOS% (MANUAL) 1 % (1-7); LYMPH#(MANUAL) 0.93 x10^3/uL (1-3.4); LYMPHS% (MANUAL) 37 % (22-44); MONOS% (MANUAL) 8 % (2-9); REACTIVE LYMPHS # (MANUAL) 0.13 x10^3/uL (0-0); REACTIVE LYMPHS % (MANUAL) 5 % (0-0); SEG#(MANUAL) 1.03 x10^3/uL (1.8-6.8); SEGS% (MANUAL) 41 % (42-75)
[2018-09-26 08:28] LABS: POLYCHROMASIA 1+
[2018-09-26 08:29] LABS: <PLATELET ESTIMATE> DECREASED; <PLT MORPHOLOGY> NORMAL PLT MORPH; OVALOCYTES 1+
[2018-09-26] MEDS: MIDODRINE 5 MG TABLET PO SCH ×3 (10:38→20:32)
[2018-09-26] MEDS: PANTOPROZOLE 40MG TABLET PO SCH ×2 (10:38→20:31)
[2018-09-26] MEDS: FOLIC ACID 1 MG TABLET PO SCH (10:39)
[2018-09-26] MEDS: FLUDROCORTISONE 0.1 MG TABLET PO SCH (10:39)
[2018-09-26] MEDS: RIFAXIMIN 550 MG TABLET PO SCH ×2 (10:40→20:31)
[2018-09-26] MEDS: SODIUM CHLORIDE FLUSH 10ML SYR IVF SCH ×2 (10:41→20:33)
[2018-09-26] MEDS: INSULIN GLARGINE 100 UNITS/ML, PEN SQ-INSULIN SCH (20:33)
[2018-09-27 00:52] VITALS: BP 125/64
[2018-09-27] MEDS: LACTULOSE 10 GM/15 ML UDC PO SCH ×4 (06:00→21:00)
[2018-09-27 06:02] LABS: CHLORIDE 100 mmol/L (98-107)
[2018-09-27 06:06] LABS: ALBUMIN 2.6 g/dL (3.4-5.0); ANION GAP 10 mmol/L (5-15)
[2018-09-27] MEDS: INSULIN LISPRO 100 UNITS/ML, PEN SQ-INSULIN SCH ×4 (07:00→22:29)
[2018-09-27 07:41] VITALS: BP 87/45
[2018-09-27] MEDS: SUCRALFATE 1 GM TABLET PO SCH ×4 (07:48→22:28)
[2018-09-27] MEDS: SODIUM CHLORIDE FLUSH 10ML SYR IVF SCH ×2 (09:14→22:27)
[2018-09-27] MEDS: MIDODRINE 5 MG TABLET PO SCH ×3 (09:15→22:28)
[2018-09-27] MEDS: RIFAXIMIN 550 MG TABLET PO SCH ×2 (09:15→22:28)
[2018-09-27] MEDS: PANTOPROZOLE 40MG TABLET PO SCH ×2 (09:15→22:28)
[2018-09-27] MEDS: FOLIC ACID 1 MG TABLET PO SCH (09:15)
[2018-09-27] MEDS: FLUDROCORTISONE 0.1 MG TABLET PO SCH (09:15)
[2018-09-27 14:45] VITALS: BP 94/57
[2018-09-27] MEDS: DARBEPOETIN 100 MCG/ML SQ SCH (16:40)
[2018-09-27 20:42] VITALS: BP 108/54
[2018-09-27] MEDS: INSULIN GLARGINE 100 UNITS/ML, PEN SQ-INSULIN SCH (22:29)
[2018-09-28] MEDS: ZOLPIDEM 5MG TABLET PO PRN (00:07)
[2018-09-28 01:51] VITALS: BP 112/62
[2018-09-28 05:28] LABS: ALBUMIN 2.6 g/dL (3.4-5.0); ANION GAP 8 mmol/L (5-15); CALCIUM 8.1 mg/dL (8.5-10.1); CHLORIDE 102 mmol/L (98-107)
[2018-09-28 05:31] LABS: MEAN CORPUSCULAR HEMOGLOBIN 34.4 pg (27.5-34.5); MEAN CORPUSCULAR HGB CONC 34.5 g/dL (33.2-36.2); MEAN CORPUSCULAR VOLUME 99.8 fL (81-97); RED BLOOD COUNT 2.14 x10^6/uL (4.38-5.82); RED CELL DISTRIBUTION WIDTH 23.7 % (9.4-14.8)
[2018-09-28 06:06] LABS: MD YES
[2018-09-28 06:10] LABS: MEAN PLATELET VOLUME 9.1 fL (7.4-10.4)
[2018-09-28 06:11] LABS: PLATELET COUNT 39 x10^3/uL (130-400)
[2018-09-28 06:14] LABS: EOS#(MANUAL) 0.07 x10^3/uL (0.0-0.4); EOS% (MANUAL) 2 % (1-7); LYMPH#(MANUAL) 1.22 x10^3/uL (1-3.4); LYMPHS% (MANUAL) 33 % (22-44); MONOS#(MANUAL) 0.11 x10^3/uL (0.3-2.7); MONOS% (MANUAL) 3 % (2-9); REACTIVE LYMPHS # (MANUAL) 0.04 x10^3/uL (0-0); REACTIVE LYMPHS % (MANUAL) 1 % (0-0); SEG#(MANUAL) 2.26 x10^3/uL (1.8-6.8); SEGS% (MANUAL) 61 % (42-75)
[2018-09-28 06:16] LABS: ANISOCYTOSIS 1+; OVALOCYTES 1+; POLYCHROMASIA 1+
[2018-09-28 06:17] LABS: <PLATELET ESTIMATE> DECREASED; <PLT MORPHOLOGY> NORMAL PLT MORPH
[2018-09-28] MEDS: LACTULOSE 10 GM/15 ML UDC PO SCH ×4 (06:40→21:19)
[2018-09-28] MEDS: SUCRALFATE 1 GM TABLET PO SCH ×3 (06:40→16:00)
[2018-09-28 07:22] VITALS: BP 91/51
[2018-09-28] MEDS: INSULIN LISPRO 100 UNITS/ML, PEN SQ-INSULIN SCH ×4 (07:47→22:15)
[2018-09-28] MEDS: FLUDROCORTISONE 0.1 MG TABLET PO SCH (08:58)
[2018-09-28] MEDS: MIDODRINE 5 MG TABLET PO SCH ×2 (08:58→14:57)
[2018-09-28] MEDS: PANTOPROZOLE 40MG TABLET PO SCH (08:58)
[2018-09-28] MEDS: SODIUM CHLORIDE FLUSH 10ML SYR IVF SCH ×2 (08:58→20:32)
[2018-09-28] MEDS: FOLIC ACID 1 MG TABLET PO SCH (08:58)
[2018-09-28] MEDS: RIFAXIMIN 550 MG TABLET PO SCH (08:58)
[2018-09-28] MEDS: ONDANSETRON 2MG/ML, 2ML IVPush PRN (09:13)
[2018-09-28 12:11] VITALS: BP 86/48
[2018-09-28] MEDS: ALBUMIN HUMAN 25% 100 ML IV PRN ×2 (16:00→17:03)
[2018-09-28] MEDS ORDERED: LACTULOSE 3.3 GM/5 ML ORAL.SOL RC ONE (18:30)
[2018-09-28 20:19] VITALS: BP 102/55
[2018-09-28] MEDS: INSULIN GLARGINE 100 UNITS/ML, PEN SQ-INSULIN SCH (21:00)
[2018-09-28 23:37] VITALS: BP 92/48
[2018-09-29 01:34] VITALS: BP 84/48
[2018-09-29] MEDS: PANTOPROZOLE 40MG TABLET PO SCH (01:56)
[2018-09-29] MEDS: RIFAXIMIN 550 MG TABLET PO SCH ×3 (01:56→20:45)
[2018-09-29] MEDS: SUCRALFATE 1 GM TABLET PO SCH ×5 (01:56→20:45)
[2018-09-29] MEDS: MIDODRINE 5 MG TABLET PO SCH ×4 (01:57→20:45)
[2018-09-29 02:49] VITALS: BP 98/59
[2018-09-29] MEDS: LACTULOSE 10 GM/15 ML UDC PO SCH ×4 (05:57→20:45)
[2018-09-29 06:13] VITALS: BP 100/57
[2018-09-29 07:36] VITALS: BP 101/55
[2018-09-29] MEDS: INSULIN LISPRO 100 UNITS/ML, PEN SQ-INSULIN SCH ×4 (07:47→20:46)
[2018-09-29] MEDS: PANTOPRAZOLE GRAN. PKT 40 MG PO SCH ×2 (08:53→20:46)
[2018-09-29] MEDS: FOLIC ACID 1 MG TABLET PO SCH (08:54)
[2018-09-29] MEDS: FLUDROCORTISONE 0.1 MG TABLET PO SCH (08:54)
[2018-09-29] MEDS: SODIUM CHLORIDE FLUSH 10ML SYR IVF SCH ×2 (08:54→20:47)
[2018-09-29] MEDS ORDERED: LACTULOSE 3.3 GM/5 ML ORAL.SOL RC ONE (09:30)
[2018-09-29 12:51] VITALS: BP 92/49
[2018-09-29] MEDS: INSULIN GLARGINE 100 UNITS/ML, PEN SQ-INSULIN SCH (20:47)
[2018-09-29 20:49] VITALS: BP 111/64
[2018-09-30 01:52] VITALS: BP 113/43
[2018-09-30] MEDS: LACTULOSE 10 GM/15 ML UDC PO SCH ×4 (05:10→21:20)
[2018-09-30 05:57] LABS: MEAN CORPUSCULAR HEMOGLOBIN 36.1 pg (27.5-34.5); MEAN CORPUSCULAR VOLUME 100.3 fL (81-97); RED BLOOD COUNT 1.91 x10^6/uL (4.38-5.82); RED CELL DISTRIBUTION WIDTH 25.3 % (9.4-14.8)
[2018-09-30 06:09] LABS: ALANINE AMINOTRANSFERASE 15 U/L (12-78); ANION GAP 10 mmol/L (5-15); CALCIUM 8.8 mg/dL (8.5-10.1); CHLORIDE 105 mmol/L (98-107); CREATININE 8.16 mg/dL (0.7-1.3)
[2018-09-30 06:11] LABS: ALKALINE PHOSPHATASE 82 U/L (45-117); BILIRUBIN,TOTAL 2.2 mg/dL (0.2-1.0); MD YES; TOTAL PROTEIN 5.3 g/dL (6.4-8.2)
[2018-09-30 06:17] LABS: MEAN PLATELET VOLUME 8.9 fL (7.4-10.4)
[2018-09-30 06:20] LABS: <PLATELET ESTIMATE> DECREASED; <PLT MORPHOLOGY> NORMAL PLT MORPH; ANISOCYTOSIS 1+; BAND#(MANUAL) 0.04 x10^3/uL; BANDS%(MANUAL) 1 % (0-7); BASOS#(MANUAL) 0.04 x10^3/uL (0-0.1); BASOS% (MANUAL) 1 % (0-1); LYMPH#(MANUAL) 1.37 x10^3/uL (1-3.4); LYMPHS% (MANUAL) 37 % (22-44); MONOS#(MANUAL) 0.15 x10^3/uL (0.3-2.7); MONOS% (MANUAL) 4 % (2-9); OVALOCYTES 1+; PLATELET COUNT 38 x10^3/uL (130-400); POLYCHROMASIA 1+; SEG#(MANUAL) 2.11 x10^3/uL (1.8-6.8); SEGS% (MANUAL) 57 % (42-75)
[2018-09-30] MEDS: INSULIN LISPRO 100 UNITS/ML, PEN SQ-INSULIN SCH ×4 (07:00→21:20)
[2018-09-30 07:18] VITALS: BP 88/48
[2018-09-30] MEDS: FLUDROCORTISONE 0.1 MG TABLET PO SCH (07:43)
[2018-09-30] MEDS: SUCRALFATE 1 GM TABLET PO SCH ×4 (07:44→21:19)
[2018-09-30] MEDS: MIDODRINE 5 MG TABLET PO SCH ×3 (07:44→21:18)
[2018-09-30] MEDS: RIFAXIMIN 550 MG TABLET PO SCH ×2 (07:44→21:19)
[2018-09-30] MEDS: FOLIC ACID 1 MG TABLET PO SCH (07:44)
[2018-09-30] MEDS: PANTOPRAZOLE GRAN. PKT 40 MG PO SCH ×2 (07:44→21:18)
[2018-09-30] MEDS: SODIUM CHLORIDE FLUSH 10ML SYR IVF SCH ×2 (08:19→21:00)
[2018-09-30 14:00] VITALS: BP 135/53
[2018-09-30 20:13] VITALS: BP 117/54
[2018-09-30] MEDS: INSULIN GLARGINE 100 UNITS/ML, PEN SQ-INSULIN SCH (21:21)
[2018-10-01] MEDS: ZOLPIDEM 5MG TABLET PO PRN (00:09)
[2018-10-01 00:57] VITALS: BP 148/60
[2018-10-01] MEDS: LACTULOSE 10 GM/15 ML UDC PO SCH ×4 (05:28→22:43)
[2018-10-01 05:45] LABS: MEAN CORPUSCULAR HEMOGLOBIN 34.3 pg (27.5-34.5); MEAN CORPUSCULAR HGB CONC 34.3 g/dL (33.2-36.2); MEAN CORPUSCULAR VOLUME 100.1 fL (81-97); MEAN PLATELET VOLUME 9.1 fL (7.4-10.4); RED BLOOD COUNT 2.16 x10^6/uL (4.38-5.82); RED CELL DISTRIBUTION WIDTH 24.4 % (9.4-14.8)
[2018-10-01 06:08] LABS: PLATELET COUNT 42 x10^3/uL (130-400)
[2018-10-01 06:32] LABS: BASOPHILS # (AUTO) 0.02 x10^3/uL (0-0.1); BASOPHILS % (AUTO) 1 % (0-1); EOSINOPHILS # (AUTO) 0.08 x10^3/uL (0-0.4); EOSINOPHILS % (AUTO) 2 % (1-7); LYMPHOCYTES # (AUTO) 1.28 x10^3/uL (1-3.4); LYMPHOCYTES % (AUTO) 30 % (22-44); MD SCAN; MONOCYTES % (AUTO) 9 % (2-9); NEUTROPHILS # (AUTO) 2.43 x10^3/uL (1.8-6.8); NEUTROPHILS % (AUTO) 58 % (42-75)
[2018-10-01 08:37] VITALS: BP 95/56
[2018-10-01] MEDS: PANTOPRAZOLE GRAN. PKT 40 MG PO SCH ×2 (08:45→22:43)
[2018-10-01] MEDS: INSULIN LISPRO 100 UNITS/ML, PEN SQ-INSULIN SCH ×4 (08:45→21:00)
[2018-10-01] MEDS: SUCRALFATE 1 GM TABLET PO SCH ×4 (08:45→22:44)
[2018-10-01] MEDS: SODIUM CHLORIDE FLUSH 10ML SYR IVF SCH ×2 (09:00→22:43)
[2018-10-01] MEDS: FLUDROCORTISONE 0.1 MG TABLET PO SCH (11:06)
[2018-10-01] MEDS: MIDODRINE 5 MG TABLET PO SCH ×3 (11:06→22:42)
[2018-10-01] MEDS: RIFAXIMIN 550 MG TABLET PO SCH ×2 (11:07→22:43)
[2018-10-01] MEDS: FOLIC ACID 1 MG TABLET PO SCH (11:07)
[2018-10-01 12:43] VITALS: BP 120/64
[2018-10-01 19:44] VITALS: BP 135/64
[2018-10-01] MEDS: INSULIN GLARGINE 100 UNITS/ML, PEN SQ-INSULIN SCH (22:43)
[2018-10-02 04:24] VITALS: BP 125/75
[2018-10-02 05:45] LABS: ANION GAP 11 mmol/L (5-15); CALCIUM 8.6 mg/dL (8.5-10.1); CHLORIDE 101 mmol/L (98-107)
[2018-10-02 05:49] LABS: MEAN CORPUSCULAR HEMOGLOBIN 33.8 pg (27.5-34.5); MEAN CORPUSCULAR HGB CONC 33.5 g/dL (33.2-36.2); MEAN CORPUSCULAR VOLUME 101.1 fL (81-97); RED CELL DISTRIBUTION WIDTH 24.1 % (9.4-14.8)
[2018-10-02 05:50] LABS: ALANINE AMINOTRANSFERASE 14 U/L (12-78); ALBUMIN 2.7 g/dL (3.4-5.0); ALKALINE PHOSPHATASE 170 U/L (45-117); BILIRUBIN,TOTAL 1.3 mg/dL (0.2-1.0); CREATININE 6.92 mg/dL (0.7-1.3); TOTAL PROTEIN 4.9 g/dL (6.4-8.2)
[2018-10-02 05:57] LABS: PLATELET COUNT 44 x10^3/uL (130-400)
[2018-10-02 06:11] LABS: BASOPHILS # (AUTO) 0.03 x10^3/uL (0-0.1); BASOPHILS % (AUTO) 1 % (0-1); EOSINOPHILS % (AUTO) 3 % (1-7); LYMPHOCYTES # (AUTO) 1.15 x10^3/uL (1-3.4); LYMPHOCYTES % (AUTO) 28 % (22-44); MD SCAN; MONOCYTES # (AUTO) 0.38 x10^3/uL (0.2-0.8); MONOCYTES % (AUTO) 9 % (2-9); NEUTROPHILS # (AUTO) 2.42 x10^3/uL (1.8-6.8); NEUTROPHILS % (AUTO) 59 % (42-75)
[2018-10-02] MEDS: LACTULOSE 10 GM/15 ML UDC PO SCH ×4 (06:44→21:15)
[2018-10-02] MEDS: INSULIN LISPRO 100 UNITS/ML, PEN SQ-INSULIN SCH ×4 (07:00→21:17)
[2018-10-02 07:40] VITALS: BP 128/63
[2018-10-02] MEDS: SODIUM CHLORIDE FLUSH 10ML SYR IVF SCH ×2 (09:00→21:16)
[2018-10-02] MEDS: RIFAXIMIN 550 MG TABLET PO SCH ×2 (09:19→21:16)
[2018-10-02] MEDS: MIDODRINE 5 MG TABLET PO SCH ×3 (09:19→21:16)
[2018-10-02] MEDS: SUCRALFATE 1 GM TABLET PO SCH ×4 (09:19→21:16)
[2018-10-02] MEDS: FOLIC ACID 1 MG TABLET PO SCH (09:19)
[2018-10-02] MEDS: PANTOPRAZOLE GRAN. PKT 40 MG PO SCH ×2 (09:19→21:16)
[2018-10-02] MEDS: FLUDROCORTISONE 0.1 MG TABLET PO SCH (09:19)
[2018-10-02 14:00] VITALS: BP 100/40
[2018-10-02] MEDS: ALBUMIN HUMAN 25% 100 ML IV PRN (15:08)
[2018-10-02 20:06] VITALS: BP 108/57
[2018-10-02] MEDS: INSULIN GLARGINE 100 UNITS/ML, PEN SQ-INSULIN SCH (21:18)
[2018-10-03 01:01] VITALS: BP 104/62
[2018-10-03] MEDS: LACTULOSE 10 GM/15 ML UDC PO SCH ×4 (06:07→22:20)
[2018-10-03] MEDS: SUCRALFATE 1 GM TABLET PO SCH ×4 (06:07→22:20)
[2018-10-03] MEDS: FLUDROCORTISONE 0.1 MG TABLET PO SCH (08:32)
[2018-10-03] MEDS: FOLIC ACID 1 MG TABLET PO SCH (08:32)
[2018-10-03] MEDS: RIFAXIMIN 550 MG TABLET PO SCH ×2 (08:32→22:19)
[2018-10-03] MEDS: PANTOPRAZOLE GRAN. PKT 40 MG PO SCH ×2 (08:32→22:19)
[2018-10-03] MEDS: MIDODRINE 5 MG TABLET PO SCH ×3 (08:32→22:19)
[2018-10-03] MEDS: INSULIN LISPRO 100 UNITS/ML, PEN SQ-INSULIN SCH ×4 (08:33→22:21)
[2018-10-03] MEDS: SODIUM CHLORIDE FLUSH 10ML SYR IVF SCH ×2 (09:00→22:21)
[2018-10-03 09:14] VITALS: BP 110/58
[2018-10-03 14:37] VITALS: BP 101/55
[2018-10-03 19:40] VITALS: BP 111/63
[2018-10-03] MEDS: INSULIN GLARGINE 100 UNITS/ML, PEN SQ-INSULIN SCH (22:21)
[2018-10-04 03:45] VITALS: BP 87/38
[2018-10-04] MEDS: LACTULOSE 10 GM/15 ML UDC PO SCH ×4 (06:09→20:26)
[2018-10-04] MEDS: INSULIN LISPRO 100 UNITS/ML, PEN SQ-INSULIN SCH ×4 (07:00→20:29)
[2018-10-04 08:06] VITALS: BP 112/64
[2018-10-04] MEDS: MIDODRINE 5 MG TABLET PO SCH ×3 (08:28→20:27)
[2018-10-04] MEDS: FLUDROCORTISONE 0.1 MG TABLET PO SCH (08:28)
[2018-10-04] MEDS: SUCRALFATE 1 GM TABLET PO SCH ×4 (08:28→20:27)
[2018-10-04] MEDS: FOLIC ACID 1 MG TABLET PO SCH (08:28)
[2018-10-04] MEDS: PANTOPRAZOLE GRAN. PKT 40 MG PO SCH ×2 (08:28→20:27)
[2018-10-04] MEDS: SODIUM CHLORIDE FLUSH 10ML SYR IVF SCH ×2 (08:28→20:29)
[2018-10-04] MEDS: RIFAXIMIN 550 MG TABLET PO SCH ×2 (08:28→20:27)
[2018-10-04 14:08] VITALS: BP 121/60
[2018-10-04] MEDS: DARBEPOETIN 100 MCG/ML SQ SCH (16:34)
[2018-10-04 19:42] VITALS: BP 105/55
[2018-10-04] MEDS: INSULIN GLARGINE 100 UNITS/ML, PEN SQ-INSULIN SCH (20:28)
[2018-10-05] VITALS (8 sets, daily range): BP systolic 102–150; BP diastolic 52–62
[2018-10-05] MEDS: LACTULOSE 10 GM/15 ML UDC PO SCH ×4 (05:46→21:38)
[2018-10-05 06:06] LABS: ALBUMIN 2.7 g/dL (3.4-5.0); ANION GAP 12 mmol/L (5-15); CALCIUM 8.3 mg/dL (8.5-10.1); CHLORIDE 101 mmol/L (98-107)
[2018-10-05 06:10] LABS: ALANINE AMINOTRANSFERASE 14 U/L (12-78); ALKALINE PHOSPHATASE 151 U/L (45-117); BILIRUBIN,TOTAL 1.3 mg/dL (0.2-1.0); CREATININE 8.27 mg/dL (0.7-1.3); TOTAL PROTEIN 4.9 g/dL (6.4-8.2)
[2018-10-05 06:26] LABS: BASOPHILS # (AUTO) 0.02 x10^3/uL (0-0.1); BASOPHILS % (AUTO) 1 % (0-1); EOSINOPHILS # (AUTO) 0.07 x10^3/uL (0-0.4); EOSINOPHILS % (AUTO) 2 % (1-7); LYMPHOCYTES # (AUTO) 0.88 x10^3/uL (1-3.4); LYMPHOCYTES % (AUTO) 26 % (22-44); MD SCAN; MEAN CORPUSCULAR HGB CONC 34.1 g/dL (33.2-36.2); MEAN CORPUSCULAR VOLUME 102.6 fL (81-97); MEAN PLATELET VOLUME 9.3 fL (7.4-10.4); MONOCYTES # (AUTO) 0.35 x10^3/uL (0.2-0.8); MONOCYTES % (AUTO) 11 % (2-9); NEUTROPHILS # (AUTO) 2.01 x10^3/uL (1.8-6.8); NEUTROPHILS % (AUTO) 60 % (42-75); RED BLOOD COUNT 1.88 x10^6/uL (4.38-5.82)
[2018-10-05 06:29] LABS: PLATELET COUNT 37 x10^3/uL (130-400)
[2018-10-05] MEDS: INSULIN LISPRO 100 UNITS/ML, PEN SQ-INSULIN SCH ×4 (07:00→21:45)
[2018-10-05] MEDS: SUCRALFATE 1 GM TABLET PO SCH ×4 (08:17→21:38)
[2018-10-05] MEDS: PANTOPRAZOLE GRAN. PKT 40 MG PO SCH ×2 (08:17→21:37)
[2018-10-05] MEDS: RIFAXIMIN 550 MG TABLET PO SCH ×2 (08:17→21:38)
[2018-10-05] MEDS: SODIUM CHLORIDE FLUSH 10ML SYR IVF SCH ×2 (08:17→21:37)
[2018-10-05] MEDS: FLUDROCORTISONE 0.1 MG TABLET PO SCH (08:17)
[2018-10-05] MEDS: MIDODRINE 5 MG TABLET PO SCH ×3 (08:17→21:38)
[2018-10-05] MEDS: FOLIC ACID 1 MG TABLET PO SCH (08:17)
[2018-10-05] MEDS: INSULIN GLARGINE 100 UNITS/ML, PEN SQ-INSULIN SCH (21:37)
[2018-10-06 01:09] VITALS: BP 136/54
[2018-10-06] MEDS: LACTULOSE 10 GM/15 ML UDC PO SCH ×4 (05:28→21:05)
[2018-10-06 06:06] LABS: MEAN CORPUSCULAR HGB CONC 34.5 g/dL (33.2-36.2); MEAN CORPUSCULAR VOLUME 101.6 fL (81-97); MEAN PLATELET VOLUME 9.3 fL (7.4-10.4); RED CELL DISTRIBUTION WIDTH 24.5 % (9.4-14.8)
[2018-10-06 06:33] LABS: PLATELET COUNT 38 x10^3/uL (130-400)
[2018-10-06 06:48] LABS: BASOPHILS # (AUTO) 0.02 x10^3/uL (0-0.1); BASOPHILS % (AUTO) 1 % (0-1); EOSINOPHILS # (AUTO) 0.06 x10^3/uL (0-0.4); EOSINOPHILS % (AUTO) 2 % (1-7); LYMPHOCYTES # (AUTO) 0.99 x10^3/uL (1-3.4); LYMPHOCYTES % (AUTO) 28 % (22-44); MD SCAN; MONOCYTES # (AUTO) 0.41 x10^3/uL (0.2-0.8); MONOCYTES % (AUTO) 12 % (2-9); NEUTROPHILS # (AUTO) 2.04 x10^3/uL (1.8-6.8); NEUTROPHILS % (AUTO) 58 % (42-75)
[2018-10-06] MEDS: INSULIN LISPRO 100 UNITS/ML, PEN SQ-INSULIN SCH ×4 (07:00→21:07)
[2018-10-06 07:48] VITALS: BP 111/65
[2018-10-06] MEDS: MIDODRINE 5 MG TABLET PO SCH ×3 (08:43→21:06)
[2018-10-06] MEDS: RIFAXIMIN 550 MG TABLET PO SCH ×2 (08:44→21:07)
[2018-10-06] MEDS: SODIUM CHLORIDE FLUSH 10ML SYR IVF SCH ×2 (08:44→21:06)
[2018-10-06] MEDS: FLUDROCORTISONE 0.1 MG TABLET PO SCH (08:44)
[2018-10-06] MEDS: PANTOPRAZOLE GRAN. PKT 40 MG PO SCH ×2 (08:44→21:06)
[2018-10-06] MEDS: FOLIC ACID 1 MG TABLET PO SCH (08:44)
[2018-10-06] MEDS: SUCRALFATE 1 GM TABLET PO SCH ×4 (08:44→21:07)
[2018-10-06 12:53] VITALS: BP 115/67
[2018-10-06 19:29] VITALS: BP 103/57
[2018-10-06] MEDS: INSULIN GLARGINE 100 UNITS/ML, PEN SQ-INSULIN SCH (21:06)
[2018-10-07 00:16] VITALS: BP 143/67
[2018-10-07] MEDS: LACTULOSE 10 GM/15 ML UDC PO SCH ×4 (05:09→21:37)
[2018-10-07] MEDS: INSULIN LISPRO 100 UNITS/ML, PEN SQ-INSULIN SCH ×4 (07:00→19:38)
[2018-10-07 08:22] VITALS: BP 115/63
[2018-10-07] MEDS: FLUDROCORTISONE 0.1 MG TABLET PO SCH (08:35)
[2018-10-07] MEDS: PANTOPRAZOLE GRAN. PKT 40 MG PO SCH ×2 (08:35→21:38)
[2018-10-07] MEDS: MIDODRINE 5 MG TABLET PO SCH ×3 (08:35→21:40)
[2018-10-07] MEDS: SODIUM CHLORIDE FLUSH 10ML SYR IVF SCH ×2 (08:36→21:50)
[2018-10-07] MEDS: SUCRALFATE 1 GM TABLET PO SCH ×2 (08:36→12:26)
[2018-10-07] MEDS: FOLIC ACID 1 MG TABLET PO SCH (08:36)
[2018-10-07] MEDS: RIFAXIMIN 550 MG TABLET PO SCH ×2 (08:36→21:40)
[2018-10-07 14:00] VITALS: BP 112/62
[2018-10-07] MEDS: ALBUMIN HUMAN 25% 100 ML IV PRN (17:46)
[2018-10-07 18:32] VITALS: BP 112/62
[2018-10-07] MEDS: INSULIN GLARGINE 100 UNITS/ML, PEN SQ-INSULIN SCH (21:42)
[2018-10-08] VITALS (7 sets, daily range): BP systolic 87–151; BP diastolic 49–64
[2018-10-08] MEDS: LACTULOSE 10 GM/15 ML UDC PO SCH ×4 (06:08→21:13)
[2018-10-08] MEDS: INSULIN LISPRO 100 UNITS/ML, PEN SQ-INSULIN SCH ×4 (07:20→21:00)
[2018-10-08] MEDS: RIFAXIMIN 550 MG TABLET PO SCH ×2 (08:32→21:14)
[2018-10-08] MEDS: PANTOPRAZOLE GRAN. PKT 40 MG PO SCH ×2 (08:32→21:15)
[2018-10-08] MEDS: FOLIC ACID 1 MG TABLET PO SCH (08:32)
[2018-10-08] MEDS: SODIUM CHLORIDE FLUSH 10ML SYR IVF SCH ×2 (08:32→21:14)
[2018-10-08] MEDS: FLUDROCORTISONE 0.1 MG TABLET PO SCH (08:32)
[2018-10-08] MEDS: MIDODRINE 5 MG TABLET PO SCH ×3 (08:33→21:14)
[2018-10-08] MEDS: INSULIN GLARGINE 100 UNITS/ML, PEN SQ-INSULIN SCH (21:00)
[2018-10-09] VITALS (8 sets, daily range): BP systolic 66–119; BP diastolic 45–66
[2018-10-09] MEDS: ACETAMINOPHEN 325 MG TABLET PO PRN (02:14)
[2018-10-09] MEDS: LACTULOSE 10 GM/15 ML UDC PO SCH ×4 (06:17→20:37)
[2018-10-09] MEDS: INSULIN LISPRO 100 UNITS/ML, PEN SQ-INSULIN SCH ×4 (08:51→20:26)
[2018-10-09] MEDS: FOLIC ACID 1 MG TABLET PO SCH (08:52)
[2018-10-09] MEDS: MIDODRINE 5 MG TABLET PO SCH ×3 (08:52→20:37)
[2018-10-09] MEDS: PANTOPRAZOLE GRAN. PKT 40 MG PO SCH ×2 (08:52→20:37)
[2018-10-09] MEDS: RIFAXIMIN 550 MG TABLET PO SCH ×2 (08:52→20:38)
[2018-10-09] MEDS: FLUDROCORTISONE 0.1 MG TABLET PO SCH (08:52)
[2018-10-09] MEDS: SODIUM CHLORIDE FLUSH 10ML SYR IVF SCH ×2 (08:53→20:37)
[2018-10-09 09:19] LABS: ANION GAP 10 mmol/L (5-15); CALCIUM 8.2 mg/dL (8.5-10.1); CHLORIDE 102 mmol/L (98-107); CREATININE 7.69 mg/dL (0.7-1.3)
[2018-10-09 09:51] LABS: MEAN CORPUSCULAR HGB CONC 33.9 g/dL (33.2-36.2); MEAN CORPUSCULAR VOLUME 100.3 fL (81-97); RED BLOOD COUNT 2.04 x10^6/uL (4.38-5.82)
[2018-10-09 09:52] LABS: MEAN PLATELET VOLUME 9.1 fL (7.4-10.4)
[2018-10-09 09:53] LABS: PLATELET COUNT 31 x10^3/uL (130-400)
[2018-10-09 09:56] LABS: BASOPHILS # (AUTO) 0.01 x10^3/uL (0-0.1); BASOPHILS % (AUTO) 1 % (0-1); EOSINOPHILS % (AUTO) 0 % (1-7); LYMPHOCYTES # (AUTO) 0.47 x10^3/uL (1-3.4); LYMPHOCYTES % (AUTO) 22 % (22-44); MD SCAN; MONOCYTES # (AUTO) 0.39 x10^3/uL (0.2-0.8); MONOCYTES % (AUTO) 19 % (2-9); NEUTROPHILS # (AUTO) 1.22 x10^3/uL (1.8-6.8); NEUTROPHILS % (AUTO) 58 % (42-75)
[2018-10-09] MEDS: ALBUMIN HUMAN 25% 100 ML IV PRN (15:52)
[2018-10-09] MEDS: POTASSIUM CHLORIDE 20 MEQ TAB.ER.PRT PO SCH (16:08)
[2018-10-09] MEDS: INSULIN GLARGINE 100 UNITS/ML, PEN SQ-INSULIN SCH (20:38)
[2018-10-10 02:27] VITALS: BP 91/42
[2018-10-10 04:32] LABS: ALBUMIN 2.4 g/dL (3.4-5.0); ANION GAP 8 mmol/L (5-15); CALCIUM 7.6 mg/dL (8.5-10.1); CHLORIDE 104 mmol/L (98-107)
[2018-10-10 04:33] LABS: MEAN CORPUSCULAR HEMOGLOBIN 34.2 pg (27.5-34.5); MEAN CORPUSCULAR HGB CONC 34.2 g/dL (33.2-36.2); MEAN PLATELET VOLUME 9.3 fL (7.4-10.4); RED BLOOD COUNT 2.13 x10^6/uL (4.38-5.82); RED CELL DISTRIBUTION WIDTH 23.8 % (9.4-14.8)
[2018-10-10 04:34] LABS: CREATININE 4.83 mg/dL (0.7-1.3)
[2018-10-10 04:49] LABS: PLATELET COUNT 30 x10^3/uL (130-400)
[2018-10-10 05:05] LABS: BASOPHILS # (AUTO) 0.01 x10^3/uL (0-0.1); BASOPHILS % (AUTO) 1 % (0-1); EOSINOPHILS # (AUTO) 0.06 x10^3/uL (0-0.4); EOSINOPHILS % (AUTO) 2 % (1-7); LYMPHOCYTES # (AUTO) 0.67 x10^3/uL (1-3.4); LYMPHOCYTES % (AUTO) 25 % (22-44); MD SCAN; MONOCYTES # (AUTO) 0.46 x10^3/uL (0.2-0.8); MONOCYTES % (AUTO) 17 % (2-9); NEUTROPHILS # (AUTO) 1.52 x10^3/uL (1.8-6.8); NEUTROPHILS % (AUTO) 56 % (42-75)
[2018-10-10 07:00] VITALS: BP 131/61
[2018-10-10] MEDS: INSULIN LISPRO 100 UNITS/ML, PEN SQ-INSULIN SCH ×4 (07:00→21:48)
[2018-10-10] MEDS: LACTULOSE 10 GM/15 ML UDC PO SCH ×4 (07:16→21:56)
[2018-10-10] MEDS: SODIUM CHLORIDE FLUSH 10ML SYR IVF SCH ×2 (09:00→21:57)
[2018-10-10] MEDS: POTASSIUM CHLORIDE 20 MEQ TAB.ER.PRT PO SCH (10:07)
[2018-10-10] MEDS: RIFAXIMIN 550 MG TABLET PO SCH ×2 (10:07→21:56)
[2018-10-10] MEDS: MIDODRINE 5 MG TABLET PO SCH ×3 (10:08→21:56)
[2018-10-10] MEDS: PANTOPRAZOLE GRAN. PKT 40 MG PO SCH ×2 (10:10→21:56)
[2018-10-10] MEDS: FOLIC ACID 1 MG TABLET PO SCH (10:10)
[2018-10-10] MEDS: FLUDROCORTISONE 0.1 MG TABLET PO SCH (10:10)
[2018-10-10 13:51] VITALS: BP 109/41
[2018-10-10 18:43] VITALS: BP 95/55
[2018-10-10] MEDS: INSULIN GLARGINE 100 UNITS/ML, PEN SQ-INSULIN SCH (21:57)
[2018-10-10] MEDS: ZOLPIDEM 5MG TABLET PO PRN (23:43)
[2018-10-11 00:31] VITALS: BP 97/43
[2018-10-11] MEDS: LACTULOSE 10 GM/15 ML UDC PO SCH ×4 (06:13→20:26)
[2018-10-11 07:10] VITALS: BP 146/53
[2018-10-11] MEDS: INSULIN LISPRO 100 UNITS/ML, PEN SQ-INSULIN SCH ×4 (07:50→20:36)
[2018-10-11] MEDS: FLUDROCORTISONE 0.1 MG TABLET PO SCH (09:45)
[2018-10-11] MEDS: MIDODRINE 5 MG TABLET PO SCH ×3 (09:46→20:25)
[2018-10-11] MEDS: FOLIC ACID 1 MG TABLET PO SCH (09:46)
[2018-10-11] MEDS: RIFAXIMIN 550 MG TABLET PO SCH ×2 (09:47→20:27)
[2018-10-11] MEDS: PANTOPRAZOLE GRAN. PKT 40 MG PO SCH ×2 (09:47→20:26)
[2018-10-11] MEDS: POTASSIUM CHLORIDE 20 MEQ TAB.ER.PRT PO SCH (09:47)
[2018-10-11] MEDS: SODIUM CHLORIDE FLUSH 10ML SYR IVF SCH ×2 (09:47→20:36)
[2018-10-11 13:09] VITALS: BP 117/55
[2018-10-11] MEDS: DARBEPOETIN 100 MCG/ML SQ SCH (17:41)
[2018-10-11 18:42] VITALS: BP 112/62
[2018-10-11] MEDS: INSULIN GLARGINE 100 UNITS/ML, PEN SQ-INSULIN SCH (20:36)
[2018-10-11] MEDS: ZOLPIDEM 5MG TABLET PO PRN (23:46)
[2018-10-12] VITALS (8 sets, daily range): BP systolic 74–104; BP diastolic 31–60
[2018-10-12 05:12] LABS: ANION GAP 9 mmol/L (5-15); CALCIUM 8.1 mg/dL (8.5-10.1); CHLORIDE 108 mmol/L (98-107)
[2018-10-12] MEDS: LACTULOSE 10 GM/15 ML UDC PO SCH ×5 (05:27→20:14)
[2018-10-12] MEDS: INSULIN LISPRO 100 UNITS/ML, PEN SQ-INSULIN SCH ×4 (07:00→19:40)
[2018-10-12] MEDS: MIDODRINE 5 MG TABLET PO SCH ×3 (09:00→20:13)
[2018-10-12] MEDS: RIFAXIMIN 550 MG TABLET PO SCH ×2 (09:00→20:13)
[2018-10-12 12:03] LABS: ALBUMIN 2.3 g/dL (3.4-5.0); ANION GAP 8 mmol/L (5-15); CALCIUM 7.9 mg/dL (8.5-10.1); CHLORIDE 106 mmol/L (98-107); CREATININE 5.62 mg/dL (0.7-1.3)
[2018-10-12 12:18] LABS: MEAN CORPUSCULAR HEMOGLOBIN 34.6 pg (27.5-34.5); MEAN CORPUSCULAR HGB CONC 34.4 g/dL (33.2-36.2); MEAN CORPUSCULAR VOLUME 100.7 fL (81-97); RED BLOOD COUNT 2.03 x10^6/uL (4.38-5.82); RED CELL DISTRIBUTION WIDTH 23.6 % (9.4-14.8)
[2018-10-12 13:21] LABS: BASOPHILS # (AUTO) 0.03 x10^3/uL (0-0.1); BASOPHILS % (AUTO) 1 % (0-1); EOSINOPHILS # (AUTO) 0.07 x10^3/uL (0-0.4); EOSINOPHILS % (AUTO) 3 % (1-7); LYMPHOCYTES # (AUTO) 0.41 x10^3/uL (1-3.4); LYMPHOCYTES % (AUTO) 18 % (22-44); MD SCAN; MEAN PLATELET VOLUME 8.4 fL (7.4-10.4); MONOCYTES % (AUTO) 9 % (2-9); NEUTROPHILS # (AUTO) 1.62 x10^3/uL (1.8-6.8); NEUTROPHILS % (AUTO) 70 % (42-75)
[2018-10-12 13:24] LABS: PLATELET COUNT 32 x10^3/uL (130-400)
[2018-10-12] MEDS: POTASSIUM CHLORIDE 20 MEQ TAB.ER.PRT PO SCH (14:33)
[2018-10-12] MEDS: FLUDROCORTISONE 0.1 MG TABLET PO SCH (14:33)
[2018-10-12] MEDS: FOLIC ACID 1 MG TABLET PO SCH (14:33)
[2018-10-12] MEDS: PANTOPRAZOLE GRAN. PKT 40 MG PO SCH ×2 (14:33→20:14)
[2018-10-12] MEDS: SODIUM CHLORIDE FLUSH 10ML SYR IVF SCH ×2 (14:34→20:14)
[2018-10-12] MEDS ORDERED: SODIUM CHLORIDE 0.9%, 500ML IVBOLUS ONE (15:30)
[2018-10-12] MEDS ORDERED: SODIUM CHLORIDE 0.9%, 250ML IVBOLUS ONE ×2 (16:00→17:00)
[2018-10-12] MEDS ORDERED: MIDODRINE 5 MG TABLET PO ONE (17:30)
[2018-10-12] MEDS ORDERED: SODIUM CHLORIDE 0.9%, 250ML IVBOLUS PRN (18:00)
[2018-10-12] MEDS: INSULIN GLARGINE 100 UNITS/ML, PEN SQ-INSULIN SCH (20:14)
[2018-10-13 01:08] VITALS: BP 94/55
[2018-10-13] MEDS: LACTULOSE 10 GM/15 ML UDC PO SCH ×4 (05:50→19:58)
[2018-10-13] MEDS: INSULIN LISPRO 100 UNITS/ML, PEN SQ-INSULIN SCH ×4 (07:00→19:42)
[2018-10-13 08:14] VITALS: BP 71/39
[2018-10-13] MEDS: FOLIC ACID 1 MG TABLET PO SCH (09:08)
[2018-10-13] MEDS: RIFAXIMIN 550 MG TABLET PO SCH ×2 (09:08→19:59)
[2018-10-13] MEDS: POTASSIUM CHLORIDE 20 MEQ TAB.ER.PRT PO SCH (09:08)
[2018-10-13] MEDS: MIDODRINE 5 MG TABLET PO SCH ×3 (09:08→19:59)
[2018-10-13] MEDS: FLUDROCORTISONE 0.1 MG TABLET PO SCH (09:08)
[2018-10-13] MEDS: PANTOPRAZOLE GRAN. PKT 40 MG PO SCH ×2 (09:08→19:59)
[2018-10-13] MEDS: SODIUM CHLORIDE FLUSH 10ML SYR IVF SCH ×2 (09:09→20:01)
[2018-10-13 09:14] VITALS: BP 83/44
[2018-10-13 16:38] VITALS: BP 90/49
[2018-10-13] MEDS: INSULIN GLARGINE 100 UNITS/ML, PEN SQ-INSULIN SCH (19:59)
[2018-10-13 20:14] VITALS: BP 105/57
[2018-10-14 01:10] VITALS: BP 101/55
[2018-10-14] MEDS: LACTULOSE 10 GM/15 ML UDC PO SCH ×4 (05:27→20:32)
[2018-10-14 05:57] LABS: CALCIUM 8.1 mg/dL (8.5-10.1); CHLORIDE 108 mmol/L (98-107)
[2018-10-14 06:04] LABS: ALANINE AMINOTRANSFERASE 16 U/L (12-78); ALBUMIN 2.5 g/dL (3.4-5.0); ALKALINE PHOSPHATASE 136 U/L (45-117); ANION GAP 8 mmol/L (5-15); BILIRUBIN,TOTAL 1.3 mg/dL (0.2-1.0); CREATININE 7.64 mg/dL (0.7-1.3); TOTAL PROTEIN 4.6 g/dL (6.4-8.2)
[2018-10-14 06:08] LABS: MEAN CORPUSCULAR HEMOGLOBIN 34.7 pg (27.5-34.5); MEAN CORPUSCULAR HGB CONC 34.4 g/dL (33.2-36.2); MEAN CORPUSCULAR VOLUME 100.8 fL (81-97); RED BLOOD COUNT 2.04 x10^6/uL (4.38-5.82); RED CELL DISTRIBUTION WIDTH 22.9 % (9.4-14.8)
[2018-10-14 06:44] LABS: BASOPHILS # (AUTO) 0.02 x10^3/uL (0-0.1); BASOPHILS % (AUTO) 1 % (0-1); EOSINOPHILS # (AUTO) 0.14 x10^3/uL (0-0.4); EOSINOPHILS % (AUTO) 4 % (1-7); LYMPHOCYTES % (AUTO) 28 % (22-44); MD SCAN; MEAN PLATELET VOLUME 9.5 fL (7.4-10.4); MONOCYTES # (AUTO) 0.41 x10^3/uL (0.2-0.8); MONOCYTES % (AUTO) 11 % (2-9); NEUTROPHILS % (AUTO) 56 % (42-75)
[2018-10-14 06:59] LABS: PLATELET COUNT 33 x10^3/uL (130-400)
[2018-10-14] MEDS: INSULIN LISPRO 100 UNITS/ML, PEN SQ-INSULIN SCH ×4 (07:00→19:51)
[2018-10-14 08:38] VITALS: BP 85/36
[2018-10-14] MEDS: FLUDROCORTISONE 0.1 MG TABLET PO SCH (08:43)
[2018-10-14] MEDS: FOLIC ACID 1 MG TABLET PO SCH (08:43)
[2018-10-14] MEDS: RIFAXIMIN 550 MG TABLET PO SCH ×2 (08:44→20:32)
[2018-10-14] MEDS: MIDODRINE 5 MG TABLET PO SCH ×3 (08:44→20:32)
[2018-10-14] MEDS: POTASSIUM CHLORIDE 20 MEQ TAB.ER.PRT PO SCH (08:44)
[2018-10-14] MEDS: PANTOPRAZOLE GRAN. PKT 40 MG PO SCH ×2 (08:44→20:32)
[2018-10-14] MEDS: CEFTRIAXONE PMX 2GM/50ML 50 ML IV SCH (08:45)
[2018-10-14] MEDS: SODIUM CHLORIDE FLUSH 10ML SYR IVF SCH ×2 (08:45→20:33)
[2018-10-14] MEDS ORDERED: HEMORRHOIDAL OINT, 28 GM (PREP H) RC PRN (13:00)
[2018-10-14 14:00] VITALS: BP 128/43
[2018-10-14 19:49] VITALS: BP 95/51
[2018-10-14] MEDS: INSULIN GLARGINE 100 UNITS/ML, PEN SQ-INSULIN SCH (20:34)
[2018-10-15] VITALS (8 sets, daily range): BP systolic 119–147; BP diastolic 53–65
[2018-10-15] MEDS: LACTULOSE 10 GM/15 ML UDC PO SCH ×4 (05:27→20:51)
[2018-10-15] MEDS: INSULIN LISPRO 100 UNITS/ML, PEN SQ-INSULIN SCH ×4 (07:00→20:52)
[2018-10-15] MEDS: MIDODRINE 5 MG TABLET PO SCH ×3 (08:37→20:52)
[2018-10-15] MEDS: PANTOPRAZOLE GRAN. PKT 40 MG PO SCH ×2 (08:38→20:52)
[2018-10-15] MEDS: POTASSIUM CHLORIDE 20 MEQ TAB.ER.PRT PO SCH (08:38)
[2018-10-15] MEDS: RIFAXIMIN 550 MG TABLET PO SCH ×2 (08:38→20:52)
[2018-10-15] MEDS: FOLIC ACID 1 MG TABLET PO SCH (08:38)
[2018-10-15] MEDS: FLUDROCORTISONE 0.1 MG TABLET PO SCH (08:38)
[2018-10-15] MEDS: SODIUM CHLORIDE FLUSH 10ML SYR IVF SCH ×2 (08:39→20:50)
[2018-10-15] MEDS: CEFTRIAXONE PMX 2GM/50ML 50 ML IV SCH (08:44)
[2018-10-15 11:00] LABS: MEAN CORPUSCULAR HGB CONC 33.5 g/dL (33.2-36.2); MEAN CORPUSCULAR VOLUME 101.8 fL (81-97); MEAN PLATELET VOLUME 9.2 fL (7.4-10.4); RED CELL DISTRIBUTION WIDTH 23.4 % (9.4-14.8)
[2018-10-15 11:03] LABS: ANION GAP 7 mmol/L (5-15); CHLORIDE 105 mmol/L (98-107); CREATININE 5.92 mg/dL (0.7-1.3)
[2018-10-15 11:05] LABS: PLATELET COUNT 36 x10^3/uL (130-400)
[2018-10-15 11:43] LABS: BASOPHILS # (AUTO) 0.07 x10^3/uL (0-0.1); BASOPHILS % (AUTO) 2 % (0-1); EOSINOPHILS # (AUTO) 0.08 x10^3/uL (0-0.4); EOSINOPHILS % (AUTO) 2 % (1-7); LYMPHOCYTES # (AUTO) 0.77 x10^3/uL (1-3.4); LYMPHOCYTES % (AUTO) 23 % (22-44); MD SCAN; MONOCYTES # (AUTO) 0.33 x10^3/uL (0.2-0.8); MONOCYTES % (AUTO) 10 % (2-9); NEUTROPHILS # (AUTO) 2.15 x10^3/uL (1.8-6.8); NEUTROPHILS % (AUTO) 63 % (42-75)
[2018-10-15] MEDS: INSULIN GLARGINE 100 UNITS/ML, PEN SQ-INSULIN SCH (21:02)
[2018-10-16 02:45] VITALS: BP 140/60
[2018-10-16 04:40] LABS: ALBUMIN 2.4 g/dL (3.4-5.0); ANION GAP 8 mmol/L (5-15); CALCIUM 8.1 mg/dL (8.5-10.1); CHLORIDE 107 mmol/L (98-107)
[2018-10-16] MEDS: LACTULOSE 10 GM/15 ML UDC PO SCH ×4 (05:11→21:19)
[2018-10-16] MEDS: INSULIN LISPRO 100 UNITS/ML, PEN SQ-INSULIN SCH ×4 (07:00→20:51)
[2018-10-16] MEDS ORDERED: CEFD300C37 PO (07:54)
[2018-10-16 07:55] VITALS: BP 105/66
[2018-10-16] MEDS: RIFAXIMIN 550 MG TABLET PO SCH ×2 (08:12→21:21)
[2018-10-16] MEDS: POTASSIUM CHLORIDE 20 MEQ TAB.ER.PRT PO SCH (08:12)
[2018-10-16] MEDS: MIDODRINE 5 MG TABLET PO SCH ×3 (08:12→21:21)
[2018-10-16] MEDS: FOLIC ACID 1 MG TABLET PO SCH (08:12)
[2018-10-16] MEDS: SODIUM CHLORIDE FLUSH 10ML SYR IVF SCH ×2 (08:14→21:00)
[2018-10-16 09:11] LABS: ALBUMIN 2.5 g/dL (3.4-5.0); ANION GAP 6 mmol/L (5-15); CALCIUM 7.6 mg/dL (8.5-10.1); CHLORIDE 104 mmol/L (98-107); CREATININE 4.38 mg/dL (0.7-1.3)
[2018-10-16] MEDS ORDERED: CEFDINIR 300 MG CAPSULE PO SCH (10:00)
[2018-10-16 11:19] LABS: MEAN CORPUSCULAR HEMOGLOBIN 34.4 pg (27.5-34.5); MEAN CORPUSCULAR HGB CONC 34.2 g/dL (33.2-36.2); MEAN CORPUSCULAR VOLUME 100.6 fL (81-97); MEAN PLATELET VOLUME 9.4 fL (7.4-10.4); RED BLOOD COUNT 2.25 x10^6/uL (4.38-5.82)
[2018-10-16 11:21] LABS: PLATELET COUNT 38 x10^3/uL (130-400)
[2018-10-16 12:02] LABS: MD SCAN
[2018-10-16 12:03] LABS: BASOPHILS # (AUTO) 0.01 x10^3/uL (0-0.1); BASOPHILS % (AUTO) 0 % (0-1); EOSINOPHILS # (AUTO) 0.07 x10^3/uL (0-0.4); EOSINOPHILS % (AUTO) 2 % (1-7); LYMPHOCYTES # (AUTO) 0.97 x10^3/uL (1-3.4); LYMPHOCYTES % (AUTO) 26 % (22-44); MONOCYTES # (AUTO) 0.26 x10^3/uL (0.2-0.8); MONOCYTES % (AUTO) 7 % (2-9); NEUTROPHILS # (AUTO) 2.43 x10^3/uL (1.8-6.8); NEUTROPHILS % (AUTO) 65 % (42-75)
[2018-10-16] MEDS: PANTOPRAZOLE GRAN. PKT 40 MG PO SCH ×2 (12:44→21:19)
[2018-10-16] MEDS: FLUDROCORTISONE 0.1 MG TABLET PO SCH (12:44)
[2018-10-16] MEDS: CEFTRIAXONE PMX 1GM/50ML 50 ML IV SCH (12:45)
[2018-10-16 13:53] VITALS: BP 124/61
[2018-10-16 19:18] VITALS: BP 83/41
[2018-10-16] MEDS: INSULIN GLARGINE 100 UNITS/ML, PEN SQ-INSULIN SCH (21:20)
[2018-10-16 23:47] VITALS: BP 115/55
[2018-10-17 01:05] VITALS: BP 115/55
[2018-10-17] MEDS: LACTULOSE 10 GM/15 ML UDC PO SCH ×2 (06:35→11:54)
[2018-10-17] MEDS: INSULIN LISPRO 100 UNITS/ML, PEN SQ-INSULIN SCH ×2 (07:00→11:00)
[2018-10-17 07:41] VITALS: BP 92/52
[2018-10-17] MEDS: RIFAXIMIN 550 MG TABLET PO SCH (08:40)
[2018-10-17] MEDS: MIDODRINE 5 MG TABLET PO SCH (08:41)
[2018-10-17] MEDS: POTASSIUM CHLORIDE 20 MEQ TAB.ER.PRT PO SCH (08:41)
[2018-10-17] MEDS: FLUDROCORTISONE 0.1 MG TABLET PO SCH (08:41)
[2018-10-17] MEDS: FOLIC ACID 1 MG TABLET PO SCH (08:42)
[2018-10-17] MEDS: PANTOPRAZOLE GRAN. PKT 40 MG PO SCH (08:42)
[2018-10-17] MEDS: SODIUM CHLORIDE FLUSH 10ML SYR IVF SCH (08:42)
[2018-10-17 10:16] VITALS: BP 103/54
[2018-10-17 10:37] VITALS: BP 117/60
[2018-10-17] MEDS: CEFTRIAXONE PMX 1GM/50ML 50 ML IV SCH (11:50)
[2018-10-17 11:54] VITALS: BP 120/62
== END 2018-10-17 13:15 | disposition home or self-care (01) | DRG 377 ==
LOC: 4WST 01:39 → 4NOR 08-12 22:28
PROVIDERS: ADMIT Family Medicine; ATTEND Family Medicine
PROC: 5A1D70Z Performance of Urinary Filtration, Intermittent, Less than 6 Hours Per Day (ICD-10-PCS; 2018-06-22)
PROC: 5A1D70Z Performance of Urinary Filtration, Intermittent, Less than 6 Hours Per Day (ICD-10-PCS; 2018-06-24)
PROC: 30233N1 Transfusion of Nonautologous Red Blood Cells into Peripheral Vein, Percutaneous Approach (ICD-10-PCS; 2018-06-25)
PROC: 5A1D70Z Performance of Urinary Filtration, Intermittent, Less than 6 Hours Per Day (ICD-10-PCS; 2018-06-26)
PROC: 5A1D70Z Performance of Urinary Filtration, Intermittent, Less than 6 Hours Per Day (ICD-10-PCS; 2018-06-29)
PROC: 5A1D70Z Performance of Urinary Filtration, Intermittent, Less than 6 Hours Per Day (ICD-10-PCS; 2018-07-01)
PROC: 5A1D70Z Performance of Urinary Filtration, Intermittent, Less than 6 Hours Per Day (ICD-10-PCS; 2018-07-03)
PROC: 5A1D70Z Performance of Urinary Filtration, Intermittent, Less than 6 Hours Per Day (ICD-10-PCS; 2018-07-06)
PROC: 5A1D70Z Performance of Urinary Filtration, Intermittent, Less than 6 Hours Per Day (ICD-10-PCS; 2018-07-08)
PROC: 5A1D70Z Performance of Urinary Filtration, Intermittent, Less than 6 Hours Per Day (ICD-10-PCS; 2018-07-10)
PROC: 30233R1 Transfusion of Nonautologous Platelets into Peripheral Vein, Percutaneous Approach (ICD-10-PCS; 2018-07-11)
PROC: 0W3P8ZZ Control Bleeding in Gastrointestinal Tract, Via Natural or Artificial Opening Endoscopic (ICD-10-PCS; principal; 2018-07-11 08:30)
PROC: 5A1D70Z Performance of Urinary Filtration, Intermittent, Less than 6 Hours Per Day (ICD-10-PCS; 2018-07-13)
PROC: 5A1D70Z Performance of Urinary Filtration, Intermittent, Less than 6 Hours Per Day (ICD-10-PCS; 2018-07-15)
PROC: 5A1D70Z Performance of Urinary Filtration, Intermittent, Less than 6 Hours Per Day (ICD-10-PCS; 2018-07-17)
PROC: 5A1D70Z Performance of Urinary Filtration, Intermittent, Less than 6 Hours Per Day (ICD-10-PCS; 2018-07-20)
PROC: 5A1D70Z Performance of Urinary Filtration, Intermittent, Less than 6 Hours Per Day (ICD-10-PCS; 2018-07-22)
PROC: 5A1D70Z Performance of Urinary Filtration, Intermittent, Less than 6 Hours Per Day (ICD-10-PCS; 2018-07-24)
PROC: 5A1D70Z Performance of Urinary Filtration, Intermittent, Less than 6 Hours Per Day (ICD-10-PCS; 2018-07-27)
PROC: 5A1D70Z Performance of Urinary Filtration, Intermittent, Less than 6 Hours Per Day (ICD-10-PCS; 2018-07-29)
PROC: 5A1D70Z Performance of Urinary Filtration, Intermittent, Less than 6 Hours Per Day (ICD-10-PCS; 2018-07-31)
PROC: 5A1D70Z Performance of Urinary Filtration, Intermittent, Less than 6 Hours Per Day (ICD-10-PCS; 2018-08-03)
PROC: 5A1D70Z Performance of Urinary Filtration, Intermittent, Less than 6 Hours Per Day (ICD-10-PCS; 2018-08-05)
PROC: 5A1D70Z Performance of Urinary Filtration, Intermittent, Less than 6 Hours Per Day (ICD-10-PCS; 2018-08-07)
PROC: 5A1D70Z Performance of Urinary Filtration, Intermittent, Less than 6 Hours Per Day (ICD-10-PCS; 2018-08-10)
PROC: 5A1D70Z Performance of Urinary Filtration, Intermittent, Less than 6 Hours Per Day (ICD-10-PCS; 2018-08-12)
PROC: 5A1D70Z Performance of Urinary Filtration, Intermittent, Less than 6 Hours Per Day (ICD-10-PCS; 2018-08-14)
PROC: 5A1D70Z Performance of Urinary Filtration, Intermittent, Less than 6 Hours Per Day (ICD-10-PCS; 2018-08-17)
PROC: 5A1D70Z Performance of Urinary Filtration, Intermittent, Less than 6 Hours Per Day (ICD-10-PCS; 2018-08-19)
PROC: 5A1D70Z Performance of Urinary Filtration, Intermittent, Less than 6 Hours Per Day (ICD-10-PCS; 2018-08-21)
PROC: 5A1D70Z Performance of Urinary Filtration, Intermittent, Less than 6 Hours Per Day (ICD-10-PCS; 2018-08-24)
PROC: 5A1D70Z Performance of Urinary Filtration, Intermittent, Less than 6 Hours Per Day (ICD-10-PCS; 2018-08-26)
PROC: 5A1D70Z Performance of Urinary Filtration, Intermittent, Less than 6 Hours Per Day (ICD-10-PCS; 2018-08-28)
PROC: 5A1D70Z Performance of Urinary Filtration, Intermittent, Less than 6 Hours Per Day (ICD-10-PCS; 2018-08-31)
PROC: 5A1D70Z Performance of Urinary Filtration, Intermittent, Less than 6 Hours Per Day (ICD-10-PCS; 2018-09-02)
PROC: 5A1D70Z Performance of Urinary Filtration, Intermittent, Less than 6 Hours Per Day (ICD-10-PCS; 2018-09-04)
PROC: 5A1D70Z Performance of Urinary Filtration, Intermittent, Less than 6 Hours Per Day (ICD-10-PCS; 2018-09-07)
PROC: 5A1D70Z Performance of Urinary Filtration, Intermittent, Less than 6 Hours Per Day (ICD-10-PCS; 2018-09-09)
PROC: 5A1D70Z Performance of Urinary Filtration, Intermittent, Less than 6 Hours Per Day (ICD-10-PCS; 2018-09-11)
PROC: 5A1D70Z Performance of Urinary Filtration, Intermittent, Less than 6 Hours Per Day (ICD-10-PCS; 2018-09-14)
PROC: 5A1D70Z Performance of Urinary Filtration, Intermittent, Less than 6 Hours Per Day (ICD-10-PCS; 2018-09-16)
PROC: 5A1D70Z Performance of Urinary Filtration, Intermittent, Less than 6 Hours Per Day (ICD-10-PCS; 2018-09-18)
PROC: 5A1D70Z Performance of Urinary Filtration, Intermittent, Less than 6 Hours Per Day (ICD-10-PCS; 2018-09-21)
PROC: 5A1D70Z Performance of Urinary Filtration, Intermittent, Less than 6 Hours Per Day (ICD-10-PCS; 2018-09-23)
PROC: 5A1D70Z Performance of Urinary Filtration, Intermittent, Less than 6 Hours Per Day (ICD-10-PCS; 2018-09-25)
PROC: 5A1D70Z Performance of Urinary Filtration, Intermittent, Less than 6 Hours Per Day (ICD-10-PCS; 2018-09-28)
PROC: 5A1D70Z Performance of Urinary Filtration, Intermittent, Less than 6 Hours Per Day (ICD-10-PCS; 2018-09-30)
PROC: 5A1D70Z Performance of Urinary Filtration, Intermittent, Less than 6 Hours Per Day (ICD-10-PCS; 2018-10-02)
PROC: 5A1D70Z Performance of Urinary Filtration, Intermittent, Less than 6 Hours Per Day (ICD-10-PCS; 2018-10-05)
PROC: 5A1D70Z Performance of Urinary Filtration, Intermittent, Less than 6 Hours Per Day (ICD-10-PCS; 2018-10-07)
PROC: 5A1D70Z Performance of Urinary Filtration, Intermittent, Less than 6 Hours Per Day (ICD-10-PCS; 2018-10-09)
PROC: 5A1D70Z Performance of Urinary Filtration, Intermittent, Less than 6 Hours Per Day (ICD-10-PCS; 2018-10-12)
DX: K31.811 Angiodysplasia of stomach and duodenum with bleeding (principal); N18.6 End stage renal disease; I81 Portal vein thrombosis; A41.81 Sepsis due to Enterococcus; K72.00 Acute and subacute hepatic failure without coma; D61.818 Other pancytopenia; E27.40 Unspecified adrenocortical insufficiency; Z68.41 Body mass index [BMI] 40.0-44.9, adult; E46 Unspecified protein-calorie malnutrition; I12.0 Hypertensive chronic kidney disease with stage 5 chronic kidney disease or end stage renal disease; K76.6 Portal hypertension; E87.2 Acidosis; L03.115 Cellulitis of right lower limb; Q27.30 Arteriovenous malformation, site unspecified; B95.61 Methicillin susceptible Staphylococcus aureus infection as the cause of diseases classified elsewhere; B96.1 Klebsiella pneumoniae [K. pneumoniae] as the cause of diseases classified elsewhere; B96.4 Proteus (mirabilis) (morganii) as the cause of diseases classified elsewhere; D63.1 Anemia in chronic kidney disease; E11.22 Type 2 diabetes mellitus with diabetic chronic kidney disease; E66.01 Morbid (severe) obesity due to excess calories; E87.6 Hypokalemia; G47.00 Insomnia, unspecified; I95.89 Other hypotension; K29.80 Duodenitis without bleeding; K75.81 Nonalcoholic steatohepatitis (NASH); Z66 Do not resuscitate; K74.60 Unspecified cirrhosis of liver; Z79.84 Long term (current) use of oral hypoglycemic drugs; F40.10 Social phobia, unspecified; E87.70 Fluid overload, unspecified; I95.1 Orthostatic hypotension; I85.10 Secondary esophageal varices without bleeding; K80.20 Calculus of gallbladder without cholecystitis without obstruction; M10.9 Gout, unspecified; K08.409 Partial loss of teeth, unspecified cause, unspecified class; N25.0 Renal osteodystrophy; R62.7 Adult failure to thrive; Z82.49 Family history of ischemic heart disease and other diseases of the circulatory system; Z87.11 Personal history of peptic ulcer disease; Z99.2 Dependence on renal dialysis; Z87.01 Personal history of pneumonia (recurrent); Z95.828 Presence of other vascular implants and grafts; Z80.9 Family history of malignant neoplasm, unspecified; Z88.1 Allergy status to other antibiotic agents; Z90.49 Acquired absence of other specified parts of digestive tract; Z83.1 Family history of other infectious and parasitic diseases; Y92.89 Other specified places as the place of occurrence of the external cause; Z87.442 Personal history of urinary calculi; Z79.4 Long term (current) use of insulin; Z79.899 Other long term (current) drug therapy; R19.7 Diarrhea, unspecified; T47.3X5A Adverse effect of saline and osmotic laxatives, initial encounter; D46.4 Refractory anemia, unspecified; E87.5 Hyperkalemia; K64.8 Other hemorrhoids; Z86.718 Personal history of other venous thrombosis and embolism; Z79.01 Long term (current) use of anticoagulants
CPT/HCPCS: 36415; 74018; 76870; 84145; 84155; J3490; 70450; 71045; 74170; 74181; 76700; 80048; 80053; 80069; 80202; 81001; 82040; 82105; 82140; 82247; 82248; 82272; 82306; 82533; 82550; 82728; 82962; 83540; 83550; 83605; 83615; 83735; 83970; 84100; 84132; 84165; 84550; 85014; 85018; 85025; 85045; 85610; 86480; 86704; 86705; 86706; 86707; 86803; 86850; 86900; 86923; 87040; 87070; 87077; 87186; 87205; 87340; 87350; 93306; 93922; G0378; J0690; J0696; J0878; J0881; J2250; J2405; J2543; J2704; J3010; J3370; J3480; P9047; Q0162; Q9967; 29580-50; 29580-GP; 29581-50; C9113; J0330; J1610; J1815; J2060; J7030; J7040; J7050; P9016; P9035; Q0163

== ENCOUNTER 2018-11-07 01:36 | Inpatient (IN) | payer MEDICAID ==
[~2018-11-07] VITALS: Ht 175.3 cm; Wt 169.5 kg
[2018-11-07] VITALS (9 sets, daily range): BP systolic 80–100; BP diastolic 29–53
[~2018-11-07 01:36] MED LIST changes: +ERGO800010 PO; -ERGO80004 PO; +KETO15CR17 TP; -KETO15CR2 TP
--- NOTE | 2018-11-07 03:12 | NUR ---
LAB AT BEDSIDE FOR BLOOD DRAW. CANCER PROGRAM DIRECTOR UNABLE TO FIND USABLE VEIN OTHER THAN THE PT HAND. PT REFUSING ALL BLOOD DRAWS IN THE HAND, STATES THAT IT HURTS TOO MUCH AND THAT "I'M OVER IT". ERMD ABDELRAHMAN AWARE.
[2018-11-07 04:35] LABS: MEAN CORPUSCULAR HEMOGLOBIN 35.8 pg (27.5-34.5); MEAN CORPUSCULAR HGB CONC 34.2 g/dL (33.2-36.2); MEAN CORPUSCULAR VOLUME 104.4 fL (81-97); RED BLOOD COUNT 1.61 x10^6/uL (4.38-5.82)
[2018-11-07 04:45] LABS: TROPONIN I 0.031 ng/mL (0.000-0.045)
[2018-11-07 05:02] LABS: BASOPHILS % (AUTO) 0 % (0-1); EOSINOPHILS % (AUTO) 0 % (1-7); LYMPHOCYTES # (AUTO) 0.57 x10^3/uL (1-3.4); LYMPHOCYTES % (AUTO) 6 % (22-44); MD SCAN; MEAN PLATELET VOLUME 9.1 fL (7.4-10.4); MONOCYTES # (AUTO) 0.54 x10^3/uL (0.2-0.8); MONOCYTES % (AUTO) 6 % (2-9); NEUTROPHILS # (AUTO) 8.18 x10^3/uL (1.8-6.8); NEUTROPHILS % (AUTO) 88 % (42-75)
[2018-11-07 05:07] LABS: PLATELET COUNT 49 x10^3/uL (130-400)
--- NOTE | 2018-11-07 05:07 | NUR ---
PLAT 49 NOTIFIED
--- NOTE | 2018-11-07 05:34 | NUR ---
blood transfusion discussed with pt by erp and consent signed by pt and placed in pt's chart
--- NOTE | 2018-11-07 06:28 | NUR ---
PT RESTING CALMLY, DENIES PAIN, SOB, PRBC'S TRANSFUSING NO S/S OF TRANSFUSION REACTION NOTED, MONITORS IN PLACE, CALL LIGHT WITHIN REACH.
[2018-11-07] MEDS ORDERED: ONDANSETRON ODT 4 MG PO PRN (15:00)
[2018-11-07] MEDS ORDERED: DOCUSATE 100 MG CAPSULE PO PRN (15:00)
[2018-11-07] MEDS ORDERED: ONDANSETRON ODT 8 MG SL PRN (15:00)
[2018-11-07] MEDS ORDERED: ACETAMINOPHEN 325 MG TABLET PO PRN (15:00)
[2018-11-07] MEDS ORDERED: POLYETHYLENE GLYCOL 17 GM PACKET PO PRN (15:00)
[2018-11-07] MEDS ORDERED: BISACODYL 10 MG SUPP PR PRN (15:00)
[2018-11-07] MEDS ORDERED: LABETALOL 5MG/ML, 20ML IVPush PRN (15:00)
[2018-11-07] MEDS ORDERED: hydrALAzine 20 MG/ML, 1ML IVPush PRN (15:00)
[2018-11-07 15:49] LABS: ANION GAP 9 mmol/L (5-15); CALCIUM 7.6 mg/dL (8.5-10.1); CHLORIDE 99 mmol/L (98-107); CREATININE 6.98 mg/dL (0.7-1.3)
[2018-11-07 15:53] LABS: FREE T4 (FREE THYROXINE) 0.92 ng/dL (0.76-1.46)
[2018-11-07 15:59] LABS: THYROID STIMULATING HORMONE 0.621 mIU/L (0.358-3.740)
[2018-11-07] MEDS: MIDODRINE 5 MG TABLET PO SCH ×2 (16:00→21:30)
[2018-11-07] MEDS: INSULIN LISPRO 100 UNITS/ML, PEN SQ-INSULIN SCH ×2 (16:00→21:12)
[2018-11-07] MEDS: LACTULOSE 10 GM/15 ML UDC PO SCH ×2 (16:21→21:29)
[2018-11-07] MEDS: TEMPLATE NON-FORMULARY MED. (Lanthanum Carbonate** (Fosrenol**) 1,000 MG) HOMEMEDPO SCH (17:00)
[2018-11-07 18:38] LABS: INTERNATIONAL NORMALIZED RATIO 1.42 (0.93-1.1); PROTHROMBIN TIME 14.7 Seconds (9.6-11.5)
[2018-11-07 19:28] LABS: HCT (SEDRATE) 18.2 % (39.2-51.8)
[2018-11-07 19:58] LABS: ESTIMATED AVERAGE GLUCOSE 54 mg/dL (0-126); HEMOGLOBIN A1C < 3.5 % (4.2-6.3)
[2018-11-07 20:09] LABS: MD YES; MEAN CORPUSCULAR HEMOGLOBIN 34.8 pg (27.5-34.5); MEAN CORPUSCULAR VOLUME 102.2 fL (81-97); MEAN PLATELET VOLUME 8.9 fL (7.4-10.4); RED BLOOD COUNT 1.79 x10^6/uL (4.38-5.82); RED CELL DISTRIBUTION WIDTH 25.7 % (9.4-14.8)
[2018-11-07 20:11] LABS: BAND#(MANUAL) 0.07 x10^3/uL; BANDS%(MANUAL) 1 % (0-7); EOS#(MANUAL) 0.07 x10^3/uL (0.0-0.4); EOS% (MANUAL) 1 % (1-7); LYMPH#(MANUAL) 0.36 x10^3/uL (1-3.4); LYMPHS% (MANUAL) 5 % (22-44); MONOS#(MANUAL) 0.07 x10^3/uL (0.3-2.7); MONOS% (MANUAL) 1 % (2-9); SEG#(MANUAL) 6.53 x10^3/uL (1.8-6.8); SEGS% (MANUAL) 92 % (42-75)
[2018-11-07 20:12] LABS: ANISOCYTOSIS 1+; HYPOCHROMIA 1+; MICROCYTOSIS 1+; POLYCHROMASIA 1+
[2018-11-07 20:13] LABS: <PLATELET ESTIMATE> DECREASED; <PLT MORPHOLOGY> QNS FOR PLT MORPH
[2018-11-07] MEDS: PANTOPROZOLE 40MG TABLET PO SCH (21:30)
[2018-11-07] MEDS: RIFAXIMIN 550 MG TABLET PO SCH (21:30)
[2018-11-07 21:44] LABS: PLATELET COUNT 49 x10^3/uL (130-400)
[2018-11-07 23:54] LABS: TROPONIN I 0.022 ng/mL (0.000-0.045)
[2018-11-08] VITALS (11 sets, daily range): BP systolic 93–117; BP diastolic 30–40
[2018-11-08] MEDS: INSULIN GLARGINE 100 UNITS/ML, PEN SQ-INSULIN SCH ×2 (00:08→20:21)
[2018-11-08 03:33] LABS: MEAN CORPUSCULAR HEMOGLOBIN 33.4 pg (27.5-34.5); MEAN CORPUSCULAR HGB CONC 33.3 g/dL (33.2-36.2); MEAN CORPUSCULAR VOLUME 100.4 fL (81-97); RED BLOOD COUNT 1.81 x10^6/uL (4.38-5.82); RED CELL DISTRIBUTION WIDTH 25.8 % (9.4-14.8)
[2018-11-08 03:34] LABS: ALBUMIN 1.8 g/dL (3.4-5.0); ANION GAP 11 mmol/L (5-15); CALCIUM 7.4 mg/dL (8.5-10.1); CHLORIDE 101 mmol/L (98-107); CHOLESTEROL, TOTAL 97 mg/dL (140-239); CREATININE 7.48 mg/dL (0.7-1.3); TRIGLYCERIDES 207 mg/dL (50-200); VLDL CHOLESTEROL 41 mg/dL (0-25)
[2018-11-08 03:35] LABS: PLATELET COUNT 38 x10^3/uL (130-400)
[2018-11-08 03:36] LABS: CHOL/HDL RATIO 7.5; HDL CHOL % 13 % (26-37); HDL CHOLESTEROL (DIRECT) 13 mg/dL (40-60); LDL CHOLESTEROL,CALCULATED 43 mg/dL (54-169); LDL/HDL RATIO 3.3 (0.5-3.0)
[2018-11-08 03:40] LABS: MD YES
[2018-11-08 03:44] LABS: <PLATELET ESTIMATE> DECREASED; ANISOCYTOSIS 1+; HYPOCHROMIA 1+; LYMPH#(MANUAL) 0.25 x10^3/uL (1-3.4); LYMPHS% (MANUAL) 6 % (22-44); MICROCYTOSIS 1+; MONOS#(MANUAL) 0.16 x10^3/uL (0.3-2.7); MONOS% (MANUAL) 4 % (2-9); POLYCHROMASIA 1+; SEG#(MANUAL) 3.69 x10^3/uL (1.8-6.8); SEGS% (MANUAL) 90 % (42-75)
[2018-11-08 03:45] LABS: <PLT MORPHOLOGY> QNS FOR PLT MORPH
[2018-11-08] MEDS: TEMPLATE NON-FORMULARY MED. (Lanthanum Carbonate** (Fosrenol**) 1,000 MG) HOMEMEDPO SCH ×3 (08:00→16:41)
[2018-11-08] MEDS: LACTULOSE 10 GM/15 ML UDC PO SCH ×3 (09:41→20:20)
[2018-11-08] MEDS: FLUDROCORTISONE 0.1 MG TABLET PO SCH (09:42)
[2018-11-08] MEDS: MIDODRINE 5 MG TABLET PO SCH ×3 (09:42→20:20)
[2018-11-08] MEDS: RIFAXIMIN 550 MG TABLET PO SCH ×2 (09:42→20:20)
[2018-11-08] MEDS: SENNA/DOCUSATE TABLET PO SCH (09:42)
[2018-11-08] MEDS: FOLIC ACID 1 MG TABLET PO SCH (09:43)
[2018-11-08] MEDS: PANTOPROZOLE 40MG TABLET PO SCH ×2 (09:54→20:20)
[2018-11-08] MEDS: INSULIN LISPRO 100 UNITS/ML, PEN SQ-INSULIN SCH ×4 (10:48→20:15)
[2018-11-08] MEDS ORDERED: PHARMACY MAY ADJ FOR RENAL FX MC PRN (13:30)
[2018-11-08] MEDS ORDERED: VANCOMYCIN PER PHARMACY MC PRN (13:30)
[2018-11-08] MEDS ORDERED: PHARMACOKINETIC CONSULTATION MC ONE (13:30)
[2018-11-08] MEDS ORDERED: VANCOMYCIN 2,500 MG in SODIUM CHLORIDE 0.9% 500 ML IV ONE (13:30)
[2018-11-08] MEDS ORDERED: PHARMACOKINETIC MONITORING MC PRN (13:30)
[2018-11-08] MEDS: AMPICILLIN/SULBACTAM 3 GM in SODIUM CHLORIDE 0.9% 100 ML IV SCH (13:55)
[2018-11-08] MEDS ORDERED: OMNIPAQUE 350 MG/ML, 150 ML BOTTLE ONE (17:05)
[2018-11-09 01:38] VITALS: BP 89/37
[2018-11-09 06:49] VITALS: BP 117/43
[2018-11-09 06:51] LABS: MEAN CORPUSCULAR HEMOGLOBIN 33.9 pg (27.5-34.5); MEAN CORPUSCULAR HGB CONC 34.2 g/dL (33.2-36.2); MEAN CORPUSCULAR VOLUME 99.1 fL (81-97); MEAN PLATELET VOLUME 8.3 fL (7.4-10.4); RED CELL DISTRIBUTION WIDTH 27.2 % (9.4-14.8)
[2018-11-09 06:53] LABS: PLATELET COUNT 42 x10^3/uL (130-400)
[2018-11-09] MEDS: INSULIN LISPRO 100 UNITS/ML, PEN SQ-INSULIN SCH ×4 (07:00→20:15)
[2018-11-09 07:03] LABS: ALANINE AMINOTRANSFERASE 19 U/L (12-78); ALBUMIN 1.8 g/dL (3.4-5.0); ANION GAP 10 mmol/L (5-15); CALCIUM 7.5 mg/dL (8.5-10.1); CHLORIDE 103 mmol/L (98-107); CREATININE 8.58 mg/dL (0.7-1.3)
[2018-11-09 07:05] LABS: ALKALINE PHOSPHATASE 141 U/L (45-117); BILIRUBIN,TOTAL 1.9 mg/dL (0.2-1.0); TOTAL PROTEIN 4.4 g/dL (6.4-8.2)
[2018-11-09 07:15] LABS: MD YES
[2018-11-09 07:24] LABS: ANISOCYTOSIS 1+; EOS#(MANUAL) 0.11 x10^3/uL (0.0-0.4); EOS% (MANUAL) 3 % (1-7); LYMPH#(MANUAL) 0.85 x10^3/uL (1-3.4); LYMPHS% (MANUAL) 23 % (22-44); MICROCYTOSIS 1+; MONOS#(MANUAL) 0.15 x10^3/uL (0.3-2.7); MONOS% (MANUAL) 4 % (2-9); NRBC % (MANUAL) 1 % (0-1); SEG#(MANUAL) 2.59 x10^3/uL (1.8-6.8); SEGS% (MANUAL) 70 % (42-75)
[2018-11-09 07:25] LABS: <PLATELET ESTIMATE> DECREASED; <PLT MORPHOLOGY> NORMAL PLT MORPH; HYPOCHROMIA 1+; POLYCHROMASIA 1+; TARGET CELLS 1+
[2018-11-09] MEDS: TEMPLATE NON-FORMULARY MED. (Lanthanum Carbonate** (Fosrenol**) 1,000 MG) HOMEMEDPO SCH ×3 (08:00→17:00)
[2018-11-09] MEDS: LACTULOSE 10 GM/15 ML UDC PO SCH ×3 (09:43→20:28)
[2018-11-09] MEDS: MIDODRINE 5 MG TABLET PO SCH ×3 (09:43→20:28)
[2018-11-09] MEDS: FOLIC ACID 1 MG TABLET PO SCH (09:44)
[2018-11-09] MEDS: RIFAXIMIN 550 MG TABLET PO SCH ×2 (09:44→20:28)
[2018-11-09] MEDS: FLUDROCORTISONE 0.1 MG TABLET PO SCH (09:44)
[2018-11-09] MEDS: SENNA/DOCUSATE TABLET PO SCH (09:44)
[2018-11-09] MEDS: PANTOPROZOLE 40MG TABLET PO SCH ×2 (09:44→20:28)
[2018-11-09] MEDS ORDERED: ARANESP 200 MCG/ML **ESRD SQ SCH (16:00)
[2018-11-09] MEDS: AMPICILLIN/SULBACTAM 3 GM in SODIUM CHLORIDE 0.9% 100 ML IV SCH (18:40)
[2018-11-09] MEDS: LIDODERM 5% PATCH TD PRN (19:11)
[2018-11-09 20:15] VITALS: BP 109/36
[2018-11-09] MEDS: INSULIN GLARGINE 100 UNITS/ML, PEN SQ-INSULIN SCH (20:29)
[2018-11-10 00:53] VITALS: BP 95/35
[2018-11-10 06:07] LABS: CHLORIDE 104 mmol/L (98-107)
[2018-11-10 06:12] LABS: ALANINE AMINOTRANSFERASE 16 U/L (12-78); ALBUMIN 1.8 g/dL (3.4-5.0); ALKALINE PHOSPHATASE 127 U/L (45-117); ANION GAP 7 mmol/L (5-15); BILIRUBIN,TOTAL 2.5 mg/dL (0.2-1.0); CALCIUM 7.6 mg/dL (8.5-10.1); CREATININE 5.83 mg/dL (0.7-1.3); TOTAL PROTEIN 4.3 g/dL (6.4-8.2)
[2018-11-10 06:22] LABS: MEAN CORPUSCULAR HEMOGLOBIN 33.9 pg (27.5-34.5); MEAN CORPUSCULAR HGB CONC 34.2 g/dL (33.2-36.2); RED CELL DISTRIBUTION WIDTH 24.9 % (9.4-14.8)
[2018-11-10] MEDS: INSULIN LISPRO 100 UNITS/ML, PEN SQ-INSULIN SCH ×4 (07:00→21:54)
[2018-11-10 08:00] VITALS: BP 150/42
[2018-11-10] MEDS: TEMPLATE NON-FORMULARY MED. (Lanthanum Carbonate** (Fosrenol**) 1,000 MG) HOMEMEDPO SCH ×3 (08:00→16:05)
[2018-11-10 08:06] LABS: MEAN PLATELET VOLUME 8.2 fL (7.4-10.4); PLATELET COUNT 38 x10^3/uL (130-400)
[2018-11-10 08:09] LABS: MD MORPH REVIEW ONLY
[2018-11-10 08:10] LABS: BASOPHILS # (AUTO) 0.01 x10^3/uL (0-0.1); BASOPHILS % (AUTO) 0 % (0-1); EOSINOPHILS # (AUTO) 0.04 x10^3/uL (0-0.4); EOSINOPHILS % (AUTO) 1 % (1-7); LYMPHOCYTES # (AUTO) 0.67 x10^3/uL (1-3.4); LYMPHOCYTES % (AUTO) 19 % (22-44); MONOCYTES # (AUTO) 0.29 x10^3/uL (0.2-0.8); MONOCYTES % (AUTO) 8 % (2-9); NEUTROPHILS % (AUTO) 72 % (42-75)
[2018-11-10 08:11] LABS: ANISOCYTOSIS 1+; OVALOCYTES 1+; POLYCHROMASIA 1+
[2018-11-10 08:35] LABS: <PLATELET ESTIMATE> DECREASED; <PLT MORPHOLOGY> NORMAL PLT MORPH
[2018-11-10] MEDS: FOLIC ACID 1 MG TABLET PO SCH (09:44)
[2018-11-10] MEDS: LACTULOSE 10 GM/15 ML UDC PO SCH ×3 (09:44→21:54)
[2018-11-10] MEDS: RIFAXIMIN 550 MG TABLET PO SCH ×2 (09:45→21:55)
[2018-11-10] MEDS: SENNA/DOCUSATE TABLET PO SCH (09:45)
[2018-11-10] MEDS: FLUDROCORTISONE 0.1 MG TABLET PO SCH (09:45)
[2018-11-10] MEDS: MIDODRINE 5 MG TABLET PO SCH ×3 (09:45→21:55)
[2018-11-10] MEDS: PANTOPROZOLE 40MG TABLET PO SCH ×2 (09:45→21:54)
[2018-11-10 13:53] VITALS: BP 145/49
[2018-11-10] MEDS: LIDODERM 5% PATCH TD PRN (19:31)
[2018-11-10 19:45] VITALS: BP_SYST 135; BP_SYST 136; BP_DIAS 62; BP_DIAS 63
[2018-11-10] MEDS: CEFTRIAXONE PMX 2GM/50ML 50 ML IV SCH (21:53)
[2018-11-10] MEDS: INSULIN GLARGINE 100 UNITS/ML, PEN SQ-INSULIN SCH (21:54)
[2018-11-10] MEDS: AMPICILLIN 2 GM in SODIUM CHLORIDE 0.9% 100 ML IV SCH (23:03)
[2018-11-11] VITALS (7 sets, daily range): BP systolic 87–144; BP diastolic 38–73
[2018-11-11] MEDS: AMPICILLIN 2 GM in SODIUM CHLORIDE 0.9% 100 ML IV SCH ×2 (05:01→19:57)
[2018-11-11 06:43] LABS: CHLORIDE 104 mmol/L (98-107)
[2018-11-11 06:57] LABS: ALANINE AMINOTRANSFERASE 18 U/L (12-78); ALBUMIN 1.7 g/dL (3.4-5.0); ALKALINE PHOSPHATASE 138 U/L (45-117); ANION GAP 10 mmol/L (5-15); BILIRUBIN,TOTAL 1.5 mg/dL (0.2-1.0); CALCIUM 7.4 mg/dL (8.5-10.1); CREATININE 7.16 mg/dL (0.7-1.3); TOTAL PROTEIN 4.4 g/dL (6.4-8.2)
[2018-11-11] MEDS: INSULIN LISPRO 100 UNITS/ML, PEN SQ-INSULIN SCH ×4 (07:00→21:00)
[2018-11-11 07:05] LABS: MEAN CORPUSCULAR HEMOGLOBIN 33.7 pg (27.5-34.5); MEAN CORPUSCULAR HGB CONC 33.9 g/dL (33.2-36.2); MEAN CORPUSCULAR VOLUME 99.2 fL (81-97); MEAN PLATELET VOLUME 8.4 fL (7.4-10.4); RED BLOOD COUNT 2.02 x10^6/uL (4.38-5.82); RED CELL DISTRIBUTION WIDTH 24.9 % (9.4-14.8)
[2018-11-11 07:11] LABS: PLATELET COUNT 36 x10^3/uL (130-400)
[2018-11-11 07:15] LABS: BASOPHILS # (AUTO) 0.01 x10^3/uL (0-0.1); BASOPHILS % (AUTO) 0 % (0-1); EOSINOPHILS # (AUTO) 0.04 x10^3/uL (0-0.4); EOSINOPHILS % (AUTO) 1 % (1-7); LYMPHOCYTES # (AUTO) 0.64 x10^3/uL (1-3.4); LYMPHOCYTES % (AUTO) 19 % (22-44); MD MORPH REVIEW ONLY; MONOCYTES # (AUTO) 0.37 x10^3/uL (0.2-0.8); MONOCYTES % (AUTO) 11 % (2-9); NEUTROPHILS # (AUTO) 2.36 x10^3/uL (1.8-6.8); NEUTROPHILS % (AUTO) 69 % (42-75)
[2018-11-11 07:16] LABS: ANISOCYTOSIS 2+
[2018-11-11 07:17] LABS: OVALOCYTES 1+; POLYCHROMASIA 1+
[2018-11-11 07:20] LABS: MICROCYTOSIS 1+
[2018-11-11 07:21] LABS: <PLATELET ESTIMATE> DECREASED; <PLT MORPHOLOGY> NORMAL PLT MORPH
[2018-11-11 07:28] LABS: HCT (SEDRATE) 20.1 % (39.2-51.8)
[2018-11-11] MEDS: TEMPLATE NON-FORMULARY MED. (Lanthanum Carbonate** (Fosrenol**) 1,000 MG) HOMEMEDPO SCH ×3 (08:00→17:00)
[2018-11-11] MEDS: SENNA/DOCUSATE TABLET PO SCH (09:00)
[2018-11-11] MEDS: LACTULOSE 10 GM/15 ML UDC PO SCH ×3 (09:00→21:39)
[2018-11-11] MEDS: CEFTRIAXONE PMX 2GM/50ML 50 ML IV SCH ×2 (09:50→21:39)
[2018-11-11] MEDS: FOLIC ACID 1 MG TABLET PO SCH (09:51)
[2018-11-11] MEDS: FLUDROCORTISONE 0.1 MG TABLET PO SCH (09:51)
[2018-11-11] MEDS: PANTOPROZOLE 40MG TABLET PO SCH ×2 (09:51→21:38)
[2018-11-11] MEDS: MIDODRINE 5 MG TABLET PO SCH ×3 (09:51→21:39)
[2018-11-11] MEDS: RIFAXIMIN 550 MG TABLET PO SCH ×2 (09:51→21:38)
[2018-11-11] MEDS: INSULIN GLARGINE 100 UNITS/ML, PEN SQ-INSULIN SCH (21:00)
[2018-11-12 01:33] VITALS: BP 79/33
[2018-11-12 02:32] VITALS: BP 81/32
[2018-11-12] MEDS: INSULIN LISPRO 100 UNITS/ML, PEN SQ-INSULIN SCH ×4 (07:00→20:11)
[2018-11-12 07:15] VITALS: BP_SYST 87; BP_SYST 89; BP_DIAS 33; BP_DIAS 34
[2018-11-12] MEDS: TEMPLATE NON-FORMULARY MED. (Lanthanum Carbonate** (Fosrenol**) 1,000 MG) HOMEMEDPO SCH ×3 (08:00→16:57)
[2018-11-12 08:11] LABS: ALBUMIN 1.7 g/dL (3.4-5.0); ANION GAP 9 mmol/L (5-15); CALCIUM 7.8 mg/dL (8.5-10.1); CHLORIDE 103 mmol/L (98-107)
[2018-11-12 08:15] LABS: CREATININE 5.57 mg/dL (0.7-1.3)
[2018-11-12] MEDS: AMPICILLIN 2 GM in SODIUM CHLORIDE 0.9% 100 ML IV SCH ×2 (08:15→19:40)
[2018-11-12 08:16] LABS: ALANINE AMINOTRANSFERASE 15 U/L (12-78); ALKALINE PHOSPHATASE 140 U/L (45-117); BILIRUBIN,TOTAL 1.5 mg/dL (0.2-1.0); TOTAL PROTEIN 4.5 g/dL (6.4-8.2)
[2018-11-12] MEDS: PANTOPROZOLE 40MG TABLET PO SCH ×2 (09:00→21:39)
[2018-11-12] MEDS: LACTULOSE 10 GM/15 ML UDC PO SCH ×3 (09:00→21:39)
[2018-11-12] MEDS: SENNA/DOCUSATE TABLET PO SCH (09:00)
[2018-11-12] MEDS: FOLIC ACID 1 MG TABLET PO SCH (09:00)
[2018-11-12] MEDS: RIFAXIMIN 550 MG TABLET PO SCH ×2 (09:00→21:38)
[2018-11-12 09:07] LABS: MEAN CORPUSCULAR HEMOGLOBIN 33.5 pg (27.5-34.5); MEAN CORPUSCULAR HGB CONC 33.8 g/dL (33.2-36.2); MEAN PLATELET VOLUME 8.3 fL (7.4-10.4); RED BLOOD COUNT 2.22 x10^6/uL (4.38-5.82); RED CELL DISTRIBUTION WIDTH 23.5 % (9.4-14.8)
[2018-11-12 09:09] LABS: PLATELET COUNT 32 x10^3/uL (130-400)
[2018-11-12 09:13] LABS: MD MORPH REVIEW ONLY
[2018-11-12 09:14] LABS: BASOPHILS # (AUTO) 0.01 x10^3/uL (0-0.1); BASOPHILS % (AUTO) 0 % (0-1); EOSINOPHILS # (AUTO) 0.07 x10^3/uL (0-0.4); EOSINOPHILS % (AUTO) 2 % (1-7); LYMPHOCYTES # (AUTO) 0.71 x10^3/uL (1-3.4); LYMPHOCYTES % (AUTO) 18 % (22-44); MONOCYTES # (AUTO) 0.31 x10^3/uL (0.2-0.8); MONOCYTES % (AUTO) 8 % (2-9); NEUTROPHILS # (AUTO) 2.79 x10^3/uL (1.8-6.8); NEUTROPHILS % (AUTO) 72 % (42-75)
[2018-11-12 09:15] LABS: ANISOCYTOSIS 2+; OVALOCYTES 1+; POLYCHROMASIA 1+
[2018-11-12 09:16] LABS: <PLATELET ESTIMATE> DECREASED; <PLT MORPHOLOGY> NORMAL PLT MORPH
[2018-11-12] MEDS: CEFTRIAXONE PMX 2GM/50ML 50 ML IV SCH ×2 (09:26→21:38)
[2018-11-12] MEDS: MIDODRINE 5 MG TABLET PO SCH ×3 (12:27→21:38)
[2018-11-12] MEDS: FLUDROCORTISONE 0.1 MG TABLET PO SCH (12:35)
[2018-11-12 15:35] VITALS: BP 99/35
[2018-11-12 18:33] VITALS: BP 105/41
[2018-11-12] MEDS: INSULIN GLARGINE 100 UNITS/ML, PEN SQ-INSULIN SCH (21:40)
[2018-11-13 01:16] VITALS: BP 88/33
[2018-11-13 06:42] LABS: ALBUMIN 1.6 g/dL (3.4-5.0); ANION GAP 9 mmol/L (5-15); CALCIUM 7.9 mg/dL (8.5-10.1); CHLORIDE 104 mmol/L (98-107)
[2018-11-13 06:47] LABS: ALANINE AMINOTRANSFERASE 13 U/L (12-78); ALKALINE PHOSPHATASE 130 U/L (45-117); BILIRUBIN,TOTAL 1.3 mg/dL (0.2-1.0); CREATININE 6.83 mg/dL (0.7-1.3); TOTAL PROTEIN 4.6 g/dL (6.4-8.2)
[2018-11-13 06:48] LABS: MEAN CORPUSCULAR HEMOGLOBIN 33.7 pg (27.5-34.5); MEAN PLATELET VOLUME 8.2 fL (7.4-10.4); RED BLOOD COUNT 2.16 x10^6/uL (4.38-5.82); RED CELL DISTRIBUTION WIDTH 23.8 % (9.4-14.8)
[2018-11-13 06:54] LABS: PLATELET COUNT 29 x10^3/uL (130-400)
[2018-11-13] MEDS: INSULIN LISPRO 100 UNITS/ML, PEN SQ-INSULIN SCH ×4 (07:00→20:53)
[2018-11-13 07:21] LABS: MD MORPH REVIEW ONLY
[2018-11-13 07:22] LABS: BASOPHILS # (AUTO) 0.02 x10^3/uL (0-0.1); BASOPHILS % (AUTO) 1 % (0-1); EOSINOPHILS % (AUTO) 3 % (1-7); LYMPHOCYTES # (AUTO) 0.76 x10^3/uL (1-3.4); LYMPHOCYTES % (AUTO) 23 % (22-44); MONOCYTES % (AUTO) 9 % (2-9); NEUTROPHILS # (AUTO) 2.18 x10^3/uL (1.8-6.8); NEUTROPHILS % (AUTO) 65 % (42-75)
[2018-11-13 07:23] LABS: <PLATELET ESTIMATE> DECREASED; <PLT MORPHOLOGY> NORMAL PLT MORPH; ANISOCYTOSIS 2+; BASOPHILLIC STIPPLING 1+; OVALOCYTES 1+; POLYCHROMASIA 1+
[2018-11-13 08:00] VITALS: BP 93/36
[2018-11-13] MEDS: TEMPLATE NON-FORMULARY MED. (Lanthanum Carbonate** (Fosrenol**) 1,000 MG) HOMEMEDPO SCH ×3 (08:00→16:21)
[2018-11-13] MEDS: AMPICILLIN 2 GM in SODIUM CHLORIDE 0.9% 100 ML IV SCH ×2 (08:25→20:48)
[2018-11-13] MEDS: FLUDROCORTISONE 0.1 MG TABLET PO SCH (09:00)
[2018-11-13] MEDS: LACTULOSE 10 GM/15 ML UDC PO SCH ×3 (09:00→20:50)
[2018-11-13] MEDS: FOLIC ACID 1 MG TABLET PO SCH (09:00)
[2018-11-13] MEDS: RIFAXIMIN 550 MG TABLET PO SCH ×2 (09:00→20:49)
[2018-11-13] MEDS: PANTOPROZOLE 40MG TABLET PO SCH ×2 (09:00→20:49)
[2018-11-13] MEDS: SENNA/DOCUSATE TABLET PO SCH (09:00)
[2018-11-13] MEDS: CEFTRIAXONE PMX 2GM/50ML 50 ML IV SCH ×2 (09:55→21:34)
[2018-11-13] MEDS ORDERED: SODIUM CHLORIDE 0.9% 1,000 ML IV SCH (11:00)
[2018-11-13] MEDS: MIDODRINE 5 MG TABLET PO SCH ×3 (12:51→20:50)
[2018-11-13 13:40] VITALS: BP 96/34
[2018-11-13] MEDS ORDERED: ALBUMIN HUMAN 25% 100 ML ONE ×2 (16:01)
[2018-11-13 20:20] VITALS: BP 90/34
[2018-11-13] MEDS: ARANESP 200 MCG/ML **ESRD SQ SCH (20:49)
[2018-11-13] MEDS: INSULIN GLARGINE 100 UNITS/ML, PEN SQ-INSULIN SCH (20:53)
[2018-11-14] VITALS (9 sets, daily range): BP systolic 85–103; BP diastolic 32–37
[2018-11-14 05:31] LABS: MEAN CORPUSCULAR HEMOGLOBIN 34.7 pg (27.5-34.5); MEAN CORPUSCULAR VOLUME 99.3 fL (81-97); MEAN PLATELET VOLUME 8.2 fL (7.4-10.4); RED BLOOD COUNT 1.96 x10^6/uL (4.38-5.82); RED CELL DISTRIBUTION WIDTH 23.2 % (9.4-14.8)
[2018-11-14 05:33] LABS: ALBUMIN 1.6 g/dL (3.4-5.0); ANION GAP 8 mmol/L (5-15); CALCIUM 7.4 mg/dL (8.5-10.1); CHLORIDE 102 mmol/L (98-107)
[2018-11-14 05:37] LABS: ALANINE AMINOTRANSFERASE 15 U/L (12-78); ALKALINE PHOSPHATASE 116 U/L (45-117); BILIRUBIN,TOTAL 1.1 mg/dL (0.2-1.0); CREATININE 4.99 mg/dL (0.7-1.3); TOTAL PROTEIN 4.4 g/dL (6.4-8.2)
[2018-11-14 06:07] LABS: PLATELET COUNT 32 x10^3/uL (130-400)
[2018-11-14 06:20] LABS: BASOPHILS # (AUTO) 0.02 x10^3/uL (0-0.1); BASOPHILS % (AUTO) 1 % (0-1); EOSINOPHILS # (AUTO) 0.09 x10^3/uL (0-0.4); EOSINOPHILS % (AUTO) 3 % (1-7); LYMPHOCYTES # (AUTO) 0.63 x10^3/uL (1-3.4); LYMPHOCYTES % (AUTO) 18 % (22-44); MD MORPH REVIEW ONLY; MONOCYTES # (AUTO) 0.35 x10^3/uL (0.2-0.8); MONOCYTES % (AUTO) 10 % (2-9); NEUTROPHILS # (AUTO) 2.35 x10^3/uL (1.8-6.8); NEUTROPHILS % (AUTO) 68 % (42-75)
[2018-11-14 06:21] LABS: ANISOCYTOSIS 2+; OVALOCYTES 1+; POLYCHROMASIA 1+
[2018-11-14 06:23] LABS: <PLATELET ESTIMATE> DECREASED; <PLT MORPHOLOGY> NORMAL PLT MORPH
[2018-11-14] MEDS: INSULIN LISPRO 100 UNITS/ML, PEN SQ-INSULIN SCH ×4 (07:00→21:35)
[2018-11-14] MEDS: TEMPLATE NON-FORMULARY MED. (Lanthanum Carbonate** (Fosrenol**) 1,000 MG) HOMEMEDPO SCH ×3 (08:00→17:00)
[2018-11-14] MEDS: AMPICILLIN 2 GM in SODIUM CHLORIDE 0.9% 100 ML IV SCH ×2 (08:13→20:26)
[2018-11-14] MEDS: CEFTRIAXONE PMX 2GM/50ML 50 ML IV SCH ×2 (09:29→21:33)
[2018-11-14] MEDS: RIFAXIMIN 550 MG TABLET PO SCH ×2 (09:29→21:34)
[2018-11-14] MEDS: MIDODRINE 5 MG TABLET PO SCH ×3 (09:30→21:34)
[2018-11-14] MEDS: PANTOPROZOLE 40MG TABLET PO SCH ×2 (09:31→21:33)
[2018-11-14] MEDS: FLUDROCORTISONE 0.1 MG TABLET PO SCH (09:31)
[2018-11-14] MEDS: SENNA/DOCUSATE TABLET PO SCH (09:32)
[2018-11-14] MEDS: FOLIC ACID 1 MG TABLET PO SCH (09:33)
[2018-11-14] MEDS: LACTULOSE 10 GM/15 ML UDC PO SCH ×3 (09:33→21:33)
[2018-11-14] MEDS: INSULIN GLARGINE 100 UNITS/ML, PEN SQ-INSULIN SCH (21:35)
[2018-11-15 00:23] VITALS: BP 72/31
[2018-11-15 01:43] VITALS: BP 82/36
[2018-11-15 05:50] LABS: MEAN CORPUSCULAR HEMOGLOBIN 34.1 pg (27.5-34.5); MEAN CORPUSCULAR HGB CONC 34.6 g/dL (33.2-36.2); MEAN CORPUSCULAR VOLUME 98.7 fL (81-97); MEAN PLATELET VOLUME 8.7 fL (7.4-10.4)
[2018-11-15 05:52] LABS: PLATELET COUNT 38 x10^3/uL (130-400)
[2018-11-15 05:59] LABS: CALCIUM 7.6 mg/dL (8.5-10.1); CHLORIDE 103 mmol/L (98-107)
[2018-11-15 06:04] LABS: ALANINE AMINOTRANSFERASE 16 U/L (12-78); ALBUMIN 1.6 g/dL (3.4-5.0); ALKALINE PHOSPHATASE 153 U/L (45-117); ANION GAP 7 mmol/L (5-15); BILIRUBIN,TOTAL 1.3 mg/dL (0.2-1.0); CREATININE 6.35 mg/dL (0.7-1.3); TOTAL PROTEIN 4.6 g/dL (6.4-8.2)
[2018-11-15 06:30] LABS: <PLATELET ESTIMATE> DECREASED; <PLT MORPHOLOGY> NORMAL PLT MORPH; ANISOCYTOSIS 2+; BASOPHILS # (AUTO) 0.02 x10^3/uL (0-0.1); BASOPHILS % (AUTO) 1 % (0-1); EOSINOPHILS # (AUTO) 0.15 x10^3/uL (0-0.4); EOSINOPHILS % (AUTO) 4 % (1-7); LYMPHOCYTES # (AUTO) 0.97 x10^3/uL (1-3.4); LYMPHOCYTES % (AUTO) 24 % (22-44); MD MORPH REVIEW ONLY; MONOCYTES # (AUTO) 0.39 x10^3/uL (0.2-0.8); MONOCYTES % (AUTO) 10 % (2-9); NEUTROPHILS # (AUTO) 2.54 x10^3/uL (1.8-6.8); NEUTROPHILS % (AUTO) 62 % (42-75); OVALOCYTES 1+; POLYCHROMASIA 1+
[2018-11-15] MEDS: INSULIN LISPRO 100 UNITS/ML, PEN SQ-INSULIN SCH ×4 (07:25→20:56)
[2018-11-15] MEDS: TEMPLATE NON-FORMULARY MED. (Lanthanum Carbonate** (Fosrenol**) 1,000 MG) HOMEMEDPO SCH ×3 (08:00→15:59)
[2018-11-15 08:30] VITALS: BP 81/33
[2018-11-15] MEDS: PANTOPROZOLE 40MG TABLET PO SCH ×2 (08:30→21:01)
[2018-11-15] MEDS: LACTULOSE 10 GM/15 ML UDC PO SCH ×3 (08:30→21:00)
[2018-11-15] MEDS: FLUDROCORTISONE 0.1 MG TABLET PO SCH (08:31)
[2018-11-15] MEDS: SENNA/DOCUSATE TABLET PO SCH (08:32)
[2018-11-15] MEDS: MIDODRINE 5 MG TABLET PO SCH ×3 (08:32→21:01)
[2018-11-15] MEDS: FOLIC ACID 1 MG TABLET PO SCH (08:32)
[2018-11-15] MEDS: RIFAXIMIN 550 MG TABLET PO SCH ×2 (08:32→21:01)
[2018-11-15] MEDS: AMPICILLIN 2 GM in SODIUM CHLORIDE 0.9% 100 ML IV SCH ×2 (08:33→21:00)
[2018-11-15] MEDS: CEFTRIAXONE PMX 2GM/50ML 50 ML IV SCH ×2 (09:21→22:01)
[2018-11-15 12:22] VITALS: BP 82/38
[2018-11-15 19:08] VITALS: BP 88/42
[2018-11-15] MEDS: INSULIN GLARGINE 100 UNITS/ML, PEN SQ-INSULIN SCH (21:01)
[2018-11-16 00:34] VITALS: BP 94/41
[2018-11-16 07:15] VITALS: BP 92/41
[2018-11-16] MEDS: TEMPLATE NON-FORMULARY MED. (Lanthanum Carbonate** (Fosrenol**) 1,000 MG) HOMEMEDPO SCH ×3 (07:37→17:00)
[2018-11-16] MEDS: AMPICILLIN 2 GM in SODIUM CHLORIDE 0.9% 100 ML IV SCH ×2 (07:37→22:13)
[2018-11-16] MEDS: INSULIN LISPRO 100 UNITS/ML, PEN SQ-INSULIN SCH ×4 (07:38→22:36)
[2018-11-16 07:42] LABS: MEAN CORPUSCULAR HEMOGLOBIN 33.4 pg (27.5-34.5); MEAN CORPUSCULAR HGB CONC 33.7 g/dL (33.2-36.2); MEAN CORPUSCULAR VOLUME 99.1 fL (81-97); RED BLOOD COUNT 2.26 x10^6/uL (4.38-5.82)
[2018-11-16 07:46] LABS: PLATELET COUNT 40 x10^3/uL (130-400)
[2018-11-16 07:47] LABS: ALANINE AMINOTRANSFERASE 14 U/L (12-78); ALBUMIN 1.6 g/dL (3.4-5.0); ANION GAP 9 mmol/L (5-15); CHLORIDE 104 mmol/L (98-107); CREATININE 7.52 mg/dL (0.7-1.3)
[2018-11-16 07:58] LABS: ALKALINE PHOSPHATASE 154 U/L (45-117); BILIRUBIN,TOTAL 1.7 mg/dL (0.2-1.0); TOTAL PROTEIN 4.7 g/dL (6.4-8.2)
[2018-11-16 08:52] LABS: BASOPHILS # (AUTO) 0.06 x10^3/uL (0-0.1); BASOPHILS % (AUTO) 1 % (0-1); EOSINOPHILS # (AUTO) 0.07 x10^3/uL (0-0.4); EOSINOPHILS % (AUTO) 2 % (1-7); LYMPHOCYTES # (AUTO) 1.01 x10^3/uL (1-3.4); LYMPHOCYTES % (AUTO) 23 % (22-44); MD SCAN; MONOCYTES # (AUTO) 0.28 x10^3/uL (0.2-0.8); MONOCYTES % (AUTO) 6 % (2-9); NEUTROPHILS # (AUTO) 2.96 x10^3/uL (1.8-6.8); NEUTROPHILS % (AUTO) 68 % (42-75)
[2018-11-16] MEDS: CEFTRIAXONE PMX 2GM/50ML 50 ML IV SCH (09:00)
[2018-11-16] MEDS: LACTULOSE 10 GM/15 ML UDC PO SCH ×3 (09:00→22:12)
[2018-11-16] MEDS: RIFAXIMIN 550 MG TABLET PO SCH ×2 (09:01→22:13)
[2018-11-16] MEDS: MIDODRINE 5 MG TABLET PO SCH ×3 (09:01→22:13)
[2018-11-16] MEDS: FOLIC ACID 1 MG TABLET PO SCH (09:01)
[2018-11-16] MEDS: SENNA/DOCUSATE TABLET PO SCH (09:01)
[2018-11-16] MEDS: PANTOPROZOLE 40MG TABLET PO SCH ×2 (09:02→22:13)
[2018-11-16] MEDS: FLUDROCORTISONE 0.1 MG TABLET PO SCH (09:02)
[2018-11-16] MEDS ORDERED: SODIUM CHLORIDE 0.9% 1,000 ML IV SCH (11:00)
[2018-11-16] MEDS ORDERED: VERAPAMIL 2.5 MG/ML, 2ML ONE (13:37)
[2018-11-16] MEDS ORDERED: BIVALIRUDIN 250 MG ONE (13:37)
[2018-11-16] MEDS ORDERED: TICAGRELOR 90 MG TABLET ONE (13:37)
[2018-11-16] MEDS ORDERED: HEPARIN 1,000 UNITS/ML, 10ML ONE (13:37)
[2018-11-16] MEDS ORDERED: FENTANYL PF 100 MCG/2ML ONE ×2 (13:37→14:12)
[2018-11-16] MEDS ORDERED: LIDOCAINE 2%, 20ML ONE (13:37)
[2018-11-16] MEDS ORDERED: MIDAZOLAM 1 MG/ML, 5ML ONE (13:37)
[2018-11-16 19:45] VITALS: BP 124/62
[2018-11-16] MEDS: INSULIN GLARGINE 100 UNITS/ML, PEN SQ-INSULIN SCH (22:36)
[2018-11-17 01:40] VITALS: BP 116/64
[2018-11-17 07:48] VITALS: BP 94/51
[2018-11-17 09:28] LABS: ALBUMIN 1.6 g/dL (3.4-5.0); ANION GAP 8 mmol/L (5-15); CALCIUM 7.9 mg/dL (8.5-10.1); CHLORIDE 103 mmol/L (98-107)
[2018-11-17 09:31] LABS: MEAN CORPUSCULAR HEMOGLOBIN 33.4 pg (27.5-34.5); MEAN CORPUSCULAR HGB CONC 33.6 g/dL (33.2-36.2); MEAN CORPUSCULAR VOLUME 99.4 fL (81-97); MEAN PLATELET VOLUME 8.9 fL (7.4-10.4); RED BLOOD COUNT 2.26 x10^6/uL (4.38-5.82); RED CELL DISTRIBUTION WIDTH 25.8 % (9.4-14.8)
[2018-11-17 09:32] LABS: ALANINE AMINOTRANSFERASE 12 U/L (12-78); ALKALINE PHOSPHATASE 132 U/L (45-117); BILIRUBIN,TOTAL 1.6 mg/dL (0.2-1.0); CREATININE 5.37 mg/dL (0.7-1.3); TOTAL PROTEIN 4.6 g/dL (6.4-8.2)
[2018-11-17 09:38] LABS: PLATELET COUNT 43 x10^3/uL (130-400)
[2018-11-17] MEDS: INSULIN LISPRO 100 UNITS/ML, PEN SQ-INSULIN SCH ×4 (10:00→21:57)
[2018-11-17] MEDS: TEMPLATE NON-FORMULARY MED. (Lanthanum Carbonate** (Fosrenol**) 1,000 MG) HOMEMEDPO SCH ×3 (10:00→17:10)
[2018-11-17] MEDS: FLUDROCORTISONE 0.1 MG TABLET PO SCH (10:01)
[2018-11-17] MEDS: RIFAXIMIN 550 MG TABLET PO SCH ×2 (10:01→22:15)
[2018-11-17] MEDS: CEFTRIAXONE PMX 2GM/50ML 50 ML IV SCH (10:01)
[2018-11-17] MEDS: FOLIC ACID 1 MG TABLET PO SCH (10:01)
[2018-11-17] MEDS: PANTOPROZOLE 40MG TABLET PO SCH ×2 (10:01→22:15)
[2018-11-17] MEDS: MIDODRINE 5 MG TABLET PO SCH ×3 (10:02→22:15)
[2018-11-17] MEDS: LACTULOSE 10 GM/15 ML UDC PO SCH ×3 (10:02→22:16)
[2018-11-17] MEDS: SENNA/DOCUSATE TABLET PO SCH (10:31)
[2018-11-17 11:03] LABS: BASOPHILS # (AUTO) 0.03 x10^3/uL (0-0.1); BASOPHILS % (AUTO) 1 % (0-1); EOSINOPHILS % (AUTO) 0 % (1-7); LYMPHOCYTES # (AUTO) 0.71 x10^3/uL (1-3.4); LYMPHOCYTES % (AUTO) 21 % (22-44); MD SCAN; MONOCYTES # (AUTO) 0.31 x10^3/uL (0.2-0.8); MONOCYTES % (AUTO) 9 % (2-9); NEUTROPHILS # (AUTO) 2.37 x10^3/uL (1.8-6.8); NEUTROPHILS % (AUTO) 70 % (42-75)
[2018-11-17] MEDS: AMPICILLIN 2 GM in SODIUM CHLORIDE 0.9% 100 ML IV SCH ×2 (11:47→22:16)
[2018-11-17 12:51] VITALS: BP 120/65
[2018-11-17 20:11] VITALS: BP 102/56
[2018-11-17] MEDS: INSULIN GLARGINE 100 UNITS/ML, PEN SQ-INSULIN SCH (22:16)
[2018-11-18 00:11] VITALS: BP 105/44
[2018-11-18 06:27] LABS: MEAN CORPUSCULAR HEMOGLOBIN 33.3 pg (27.5-34.5); MEAN CORPUSCULAR HGB CONC 33.3 g/dL (33.2-36.2); MEAN PLATELET VOLUME 8.7 fL (7.4-10.4); RED BLOOD COUNT 2.27 x10^6/uL (4.38-5.82); RED CELL DISTRIBUTION WIDTH 26.3 % (9.4-14.8)
[2018-11-18 06:28] LABS: PLATELET COUNT 45 x10^3/uL (130-400)
[2018-11-18 06:38] LABS: CHLORIDE 103 mmol/L (98-107)
[2018-11-18 06:47] LABS: ALANINE AMINOTRANSFERASE 14 U/L (12-78); ALBUMIN 1.6 g/dL (3.4-5.0); ALKALINE PHOSPHATASE 158 U/L (45-117); ANION GAP 9 mmol/L (5-15); BILIRUBIN,TOTAL 1.2 mg/dL (0.2-1.0); CALCIUM 7.8 mg/dL (8.5-10.1); CREATININE 6.46 mg/dL (0.7-1.3); TOTAL PROTEIN 4.8 g/dL (6.4-8.2)
[2018-11-18 06:52] LABS: BASOPHILS # (AUTO) 0.02 x10^3/uL (0-0.1); BASOPHILS % (AUTO) 1 % (0-1); EOSINOPHILS % (AUTO) 0 % (1-7); LYMPHOCYTES # (AUTO) 0.81 x10^3/uL (1-3.4); LYMPHOCYTES % (AUTO) 21 % (22-44); MD MORPH REVIEW ONLY; MONOCYTES # (AUTO) 0.34 x10^3/uL (0.2-0.8); MONOCYTES % (AUTO) 9 % (2-9); NEUTROPHILS # (AUTO) 2.68 x10^3/uL (1.8-6.8); NEUTROPHILS % (AUTO) 69 % (42-75)
[2018-11-18 06:53] LABS: ANISOCYTOSIS 2+; MICROCYTOSIS 1+; OVALOCYTES 1+; POLYCHROMASIA 1+
[2018-11-18 06:54] LABS: <PLATELET ESTIMATE> DECREASED; <PLT MORPHOLOGY> NORMAL PLT MORPH
[2018-11-18 08:01] VITALS: BP 110/49
[2018-11-18] MEDS: TEMPLATE NON-FORMULARY MED. (Lanthanum Carbonate** (Fosrenol**) 1,000 MG) HOMEMEDPO SCH ×3 (09:02→17:00)
[2018-11-18] MEDS: INSULIN LISPRO 100 UNITS/ML, PEN SQ-INSULIN SCH ×4 (09:02→22:44)
[2018-11-18] MEDS: FOLIC ACID 1 MG TABLET PO SCH (09:06)
[2018-11-18] MEDS: FLUDROCORTISONE 0.1 MG TABLET PO SCH (09:06)
[2018-11-18] MEDS: SENNA/DOCUSATE TABLET PO SCH (09:06)
[2018-11-18] MEDS: RIFAXIMIN 550 MG TABLET PO SCH ×2 (09:06→22:07)
[2018-11-18] MEDS: LACTULOSE 10 GM/15 ML UDC PO SCH ×3 (09:06→21:00)
[2018-11-18] MEDS: PANTOPROZOLE 40MG TABLET PO SCH ×2 (09:07→22:06)
[2018-11-18] MEDS: CEFTRIAXONE PMX 2GM/50ML 50 ML IV SCH (09:08)
[2018-11-18] MEDS: MIDODRINE 5 MG TABLET PO SCH ×3 (09:08→22:07)
[2018-11-18] MEDS: AMPICILLIN 2 GM in SODIUM CHLORIDE 0.9% 100 ML IV SCH ×2 (10:18→22:06)
[2018-11-18 14:07] VITALS: BP 106/53
[2018-11-18 20:43] VITALS: BP 117/62
[2018-11-18] MEDS: INSULIN GLARGINE 100 UNITS/ML, PEN SQ-INSULIN SCH (22:06)
[2018-11-19] VITALS (8 sets, daily range): BP systolic 94–120; BP diastolic 50–63
[2018-11-19 06:03] LABS: ALBUMIN 1.5 g/dL (3.4-5.0); ANION GAP 8 mmol/L (5-15); CALCIUM 7.7 mg/dL (8.5-10.1); CHLORIDE 102 mmol/L (98-107)
[2018-11-19 06:06] LABS: ALANINE AMINOTRANSFERASE 10 U/L (12-78); ALKALINE PHOSPHATASE 143 U/L (45-117); BILIRUBIN,TOTAL 1.4 mg/dL (0.2-1.0); CREATININE 4.75 mg/dL (0.7-1.3); TOTAL PROTEIN 4.5 g/dL (6.4-8.2)
[2018-11-19 06:28] LABS: MEAN CORPUSCULAR HEMOGLOBIN 34.1 pg (27.5-34.5); MEAN CORPUSCULAR HGB CONC 33.8 g/dL (33.2-36.2); MEAN CORPUSCULAR VOLUME 100.9 fL (81-97); MEAN PLATELET VOLUME 8.8 fL (7.4-10.4); RED BLOOD COUNT 2.06 x10^6/uL (4.38-5.82); RED CELL DISTRIBUTION WIDTH 25.8 % (9.4-14.8)
[2018-11-19 06:33] LABS: HEMOGRAM NOTE RECHECKED; PLATELET COUNT 33 x10^3/uL (130-400)
[2018-11-19] MEDS: INSULIN LISPRO 100 UNITS/ML, PEN SQ-INSULIN SCH ×4 (07:00→21:00)
[2018-11-19 07:32] LABS: BASOPHILS # (AUTO) 0.02 x10^3/uL (0-0.1); BASOPHILS % (AUTO) 1 % (0-1); EOSINOPHILS # (AUTO) 0.05 x10^3/uL (0-0.4); EOSINOPHILS % (AUTO) 2 % (1-7); LYMPHOCYTES # (AUTO) 0.67 x10^3/uL (1-3.4); LYMPHOCYTES % (AUTO) 22 % (22-44); MD SCAN; MONOCYTES # (AUTO) 0.28 x10^3/uL (0.2-0.8); MONOCYTES % (AUTO) 10 % (2-9); NEUTROPHILS # (AUTO) 1.96 x10^3/uL (1.8-6.8); NEUTROPHILS % (AUTO) 66 % (42-75)
[2018-11-19] MEDS: TEMPLATE NON-FORMULARY MED. (Lanthanum Carbonate** (Fosrenol**) 1,000 MG) HOMEMEDPO SCH ×3 (08:00→17:00)
[2018-11-19] MEDS: FLUDROCORTISONE 0.1 MG TABLET PO SCH (09:00)
[2018-11-19] MEDS: SENNA/DOCUSATE TABLET PO SCH (09:00)
[2018-11-19] MEDS: MIDODRINE 5 MG TABLET PO SCH ×3 (11:06→21:16)
[2018-11-19] MEDS: RIFAXIMIN 550 MG TABLET PO SCH ×2 (11:06→21:16)
[2018-11-19] MEDS: FOLIC ACID 1 MG TABLET PO SCH (11:06)
[2018-11-19] MEDS: LACTULOSE 10 GM/15 ML UDC PO SCH ×3 (11:06→21:18)
[2018-11-19] MEDS: PANTOPROZOLE 40MG TABLET PO SCH ×2 (11:07→21:16)
[2018-11-19] MEDS: CEFTRIAXONE PMX 2GM/50ML 50 ML IV SCH (12:22)
[2018-11-19] MEDS: AMPICILLIN 2 GM in SODIUM CHLORIDE 0.9% 100 ML IV SCH ×2 (14:27→21:41)
[2018-11-19 18:05] LABS: CLOSTRIDIUM DIFFICILE ANTIGEN NEGATIVE; CLOSTRIDIUM DIFFICILE TOXIN NEGATIVE (Negative)
[2018-11-19] MEDS: INSULIN GLARGINE 100 UNITS/ML, PEN SQ-INSULIN SCH (21:41)
[2018-11-20 00:42] VITALS: BP 96/58
[2018-11-20] MEDS: INSULIN LISPRO 100 UNITS/ML, PEN SQ-INSULIN SCH ×4 (07:00→22:27)
[2018-11-20 07:05] VITALS: BP 86/47
[2018-11-20] MEDS: TEMPLATE NON-FORMULARY MED. (Lanthanum Carbonate** (Fosrenol**) 1,000 MG) HOMEMEDPO SCH ×3 (08:00→17:00)
[2018-11-20 08:36] LABS: ANION GAP 8 mmol/L (5-15); CALCIUM 7.8 mg/dL (8.5-10.1); CHLORIDE 103 mmol/L (98-107)
[2018-11-20 08:37] LABS: CREATININE 5.96 mg/dL (0.7-1.3)
[2018-11-20 08:39] LABS: MEAN CORPUSCULAR HGB CONC 33.2 g/dL (33.2-36.2); MEAN CORPUSCULAR VOLUME 99.4 fL (81-97); RED BLOOD COUNT 2.24 x10^6/uL (4.38-5.82); RED CELL DISTRIBUTION WIDTH 25.7 % (9.4-14.8)
[2018-11-20] MEDS: SENNA/DOCUSATE TABLET PO SCH (09:00)
[2018-11-20] MEDS: FLUDROCORTISONE 0.1 MG TABLET PO SCH (09:00)
[2018-11-20 09:38] LABS: MEAN PLATELET VOLUME 8.4 fL (7.4-10.4)
[2018-11-20 09:39] LABS: BASOPHILS % (AUTO) 0 % (0-1); EOSINOPHILS # (AUTO) 0.01 x10^3/uL (0-0.4); EOSINOPHILS % (AUTO) 0 % (1-7); LYMPHOCYTES # (AUTO) 0.63 x10^3/uL (1-3.4); LYMPHOCYTES % (AUTO) 21 % (22-44); MD SCAN; MONOCYTES # (AUTO) 0.27 x10^3/uL (0.2-0.8); MONOCYTES % (AUTO) 9 % (2-9); NEUTROPHILS # (AUTO) 2.11 x10^3/uL (1.8-6.8); NEUTROPHILS % (AUTO) 70 % (42-75)
[2018-11-20 09:44] LABS: PLATELET COUNT 33 x10^3/uL (130-400)
[2018-11-20] MEDS: PANTOPROZOLE 40MG TABLET PO SCH ×2 (09:48→21:27)
[2018-11-20] MEDS: FOLIC ACID 1 MG TABLET PO SCH (09:48)
[2018-11-20] MEDS: RIFAXIMIN 550 MG TABLET PO SCH ×2 (09:48→21:27)
[2018-11-20] MEDS: MIDODRINE 5 MG TABLET PO SCH ×3 (09:49→21:27)
[2018-11-20] MEDS: LACTULOSE 10 GM/15 ML UDC PO SCH ×3 (09:51→21:00)
[2018-11-20] MEDS: CEFTRIAXONE PMX 2GM/50ML 50 ML IV SCH (10:03)
[2018-11-20] MEDS: AMPICILLIN 2 GM in SODIUM CHLORIDE 0.9% 100 ML IV SCH (11:25)
[2018-11-20 13:52] VITALS: BP 116/73
[2018-11-20 19:20] VITALS: BP 95/53
[2018-11-20] MEDS: ARANESP 200 MCG/ML **ESRD SQ SCH (22:26)
[2018-11-20] MEDS: INSULIN GLARGINE 100 UNITS/ML, PEN SQ-INSULIN SCH (22:26)
[2018-11-21 01:02] VITALS: BP 89/59
[2018-11-21] MEDS: AMPICILLIN 2 GM in SODIUM CHLORIDE 0.9% 100 ML IV SCH ×2 (01:30→13:48)
[2018-11-21 07:17] VITALS: BP 90/39
[2018-11-21] MEDS: TEMPLATE NON-FORMULARY MED. (Lanthanum Carbonate** (Fosrenol**) 1,000 MG) HOMEMEDPO SCH ×3 (08:00→17:00)
[2018-11-21] MEDS: SENNA/DOCUSATE TABLET PO SCH (09:00)
[2018-11-21] MEDS: FLUDROCORTISONE 0.1 MG TABLET PO SCH (09:18)
[2018-11-21] MEDS: CEFTRIAXONE PMX 2GM/50ML 50 ML IV SCH (09:18)
[2018-11-21] MEDS: MIDODRINE 5 MG TABLET PO SCH ×3 (09:18→20:33)
[2018-11-21] MEDS: PANTOPROZOLE 40MG TABLET PO SCH ×2 (09:18→20:33)
[2018-11-21] MEDS: RIFAXIMIN 550 MG TABLET PO SCH ×2 (09:19→20:32)
[2018-11-21] MEDS: FOLIC ACID 1 MG TABLET PO SCH (09:19)
[2018-11-21] MEDS: LACTULOSE 10 GM/15 ML UDC PO SCH ×3 (09:19→20:34)
[2018-11-21] MEDS: INSULIN LISPRO 100 UNITS/ML, PEN SQ-INSULIN SCH ×4 (09:19→20:26)
[2018-11-21 14:43] VITALS: BP 102/56
[2018-11-21 18:20] VITALS: BP 101/58
[2018-11-21] MEDS: INSULIN GLARGINE 100 UNITS/ML, PEN SQ-INSULIN SCH (20:34)
[2018-11-22 00:37] VITALS: BP 119/63
[2018-11-22] MEDS: AMPICILLIN 2 GM in SODIUM CHLORIDE 0.9% 100 ML IV SCH ×2 (01:49→14:15)
[2018-11-22 07:12] VITALS: BP 92/52
[2018-11-22] MEDS: INSULIN LISPRO 100 UNITS/ML, PEN SQ-INSULIN SCH ×4 (07:47→21:26)
[2018-11-22] MEDS: LACTULOSE 10 GM/15 ML UDC PO SCH ×3 (09:15→20:05)
[2018-11-22] MEDS: CEFTRIAXONE PMX 2GM/50ML 50 ML IV SCH (09:16)
[2018-11-22] MEDS: TEMPLATE NON-FORMULARY MED. (Lanthanum Carbonate** (Fosrenol**) 1,000 MG) HOMEMEDPO SCH ×3 (09:16→16:55)
[2018-11-22] MEDS: PANTOPROZOLE 40MG TABLET PO SCH ×2 (09:20→21:25)
[2018-11-22] MEDS: FLUDROCORTISONE 0.1 MG TABLET PO SCH (09:20)
[2018-11-22] MEDS: RIFAXIMIN 550 MG TABLET PO SCH ×2 (09:20→21:25)
[2018-11-22] MEDS: SENNA/DOCUSATE TABLET PO SCH (09:20)
[2018-11-22] MEDS: MIDODRINE 5 MG TABLET PO SCH ×3 (09:21→21:24)
[2018-11-22] MEDS: FOLIC ACID 1 MG TABLET PO SCH (09:21)
[2018-11-22 12:19] VITALS: BP 107/56
[2018-11-22 19:48] VITALS: BP 108/50
[2018-11-22] MEDS: INSULIN GLARGINE 100 UNITS/ML, PEN SQ-INSULIN SCH (21:25)
[2018-11-23 00:25] VITALS: BP 117/55
[2018-11-23] MEDS: AMPICILLIN 2 GM in SODIUM CHLORIDE 0.9% 100 ML IV SCH ×2 (01:39→17:56)
[2018-11-23 04:54] LABS: MEAN CORPUSCULAR HEMOGLOBIN 34.4 pg (27.5-34.5); MEAN CORPUSCULAR HGB CONC 34.3 g/dL (33.2-36.2); MEAN CORPUSCULAR VOLUME 100.2 fL (81-97); MEAN PLATELET VOLUME 8.7 fL (7.4-10.4); RED BLOOD COUNT 2.07 x10^6/uL (4.38-5.82); RED CELL DISTRIBUTION WIDTH 26.3 % (9.4-14.8)
[2018-11-23 04:56] LABS: CHLORIDE 103 mmol/L (98-107)
[2018-11-23 05:12] LABS: ALANINE AMINOTRANSFERASE 11 U/L (12-78); ALBUMIN 1.5 g/dL (3.4-5.0); ALKALINE PHOSPHATASE 156 U/L (45-117); ANION GAP 10 mmol/L (5-15); BILIRUBIN,TOTAL 1.3 mg/dL (0.2-1.0); CALCIUM 7.9 mg/dL (8.5-10.1); CREATININE 6.48 mg/dL (0.7-1.3); TOTAL PROTEIN 4.6 g/dL (6.4-8.2)
[2018-11-23 05:39] LABS: BASOPHILS # (AUTO) 0.03 x10^3/uL (0-0.1); BASOPHILS % (AUTO) 1 % (0-1); EOSINOPHILS % (AUTO) 0 % (1-7); LYMPHOCYTES # (AUTO) 0.84 x10^3/uL (1-3.4); LYMPHOCYTES % (AUTO) 26 % (22-44); MD SCAN; MONOCYTES # (AUTO) 0.33 x10^3/uL (0.2-0.8); MONOCYTES % (AUTO) 10 % (2-9); NEUTROPHILS # (AUTO) 2.11 x10^3/uL (1.8-6.8); NEUTROPHILS % (AUTO) 64 % (42-75)
[2018-11-23 05:42] LABS: HCT (SEDRATE) 20.9 % (39.2-51.8); PLATELET COUNT 33 x10^3/uL (130-400)
[2018-11-23] MEDS: INSULIN LISPRO 100 UNITS/ML, PEN SQ-INSULIN SCH ×4 (07:00→20:33)
[2018-11-23 07:23] VITALS: BP 93/54
[2018-11-23] MEDS: TEMPLATE NON-FORMULARY MED. (Lanthanum Carbonate** (Fosrenol**) 1,000 MG) HOMEMEDPO SCH ×3 (08:00→17:00)
[2018-11-23] MEDS: RIFAXIMIN 550 MG TABLET PO SCH ×2 (08:57→20:32)
[2018-11-23] MEDS: LACTULOSE 10 GM/15 ML UDC PO SCH ×2 (08:57→20:32)
[2018-11-23] MEDS: PANTOPROZOLE 40MG TABLET PO SCH ×2 (08:57→20:32)
[2018-11-23] MEDS: FOLIC ACID 1 MG TABLET PO SCH (08:57)
[2018-11-23] MEDS: FLUDROCORTISONE 0.1 MG TABLET PO SCH (08:58)
[2018-11-23] MEDS: MIDODRINE 5 MG TABLET PO SCH ×3 (08:58→20:32)
[2018-11-23] MEDS: SENNA/DOCUSATE TABLET PO SCH (09:00)
[2018-11-23] MEDS: CEFTRIAXONE PMX 2GM/50ML 50 ML IV SCH (09:06)
[2018-11-23 12:44] VITALS: BP 111/64
[2018-11-23 18:55] VITALS: BP 93/53
[2018-11-23] MEDS: INSULIN GLARGINE 100 UNITS/ML, PEN SQ-INSULIN SCH (20:33)
[2018-11-24] VITALS (14 sets, daily range): BP systolic 91–122; BP diastolic 42–72
[2018-11-24] MEDS: AMPICILLIN 2 GM in SODIUM CHLORIDE 0.9% 100 ML IV SCH ×2 (05:42→20:02)
[2018-11-24 05:47] LABS: MEAN CORPUSCULAR HEMOGLOBIN 34.6 pg (27.5-34.5); MEAN CORPUSCULAR HGB CONC 33.9 g/dL (33.2-36.2); MEAN PLATELET VOLUME 9.5 fL (7.4-10.4); RED BLOOD COUNT 1.98 x10^6/uL (4.38-5.82)
[2018-11-24 05:49] LABS: PLATELET COUNT 29 x10^3/uL (130-400)
[2018-11-24 05:55] LABS: CHLORIDE 102 mmol/L (98-107)
[2018-11-24 06:08] LABS: ALANINE AMINOTRANSFERASE 14 U/L (12-78); ALBUMIN 1.5 g/dL (3.4-5.0); ALKALINE PHOSPHATASE 144 U/L (45-117); ANION GAP 9 mmol/L (5-15); BILIRUBIN,TOTAL 1.3 mg/dL (0.2-1.0); CALCIUM 7.8 mg/dL (8.5-10.1); CREATININE 4.91 mg/dL (0.7-1.3); TOTAL PROTEIN 4.6 g/dL (6.4-8.2)
[2018-11-24 06:34] LABS: MD SCAN
[2018-11-24 06:38] LABS: BASOPHILS # (AUTO) 0.03 x10^3/uL (0-0.1); BASOPHILS % (AUTO) 1 % (0-1); EOSINOPHILS % (AUTO) 0 % (1-7); LYMPHOCYTES # (AUTO) 0.92 x10^3/uL (1-3.4); LYMPHOCYTES % (AUTO) 28 % (22-44); MONOCYTES # (AUTO) 0.31 x10^3/uL (0.2-0.8); MONOCYTES % (AUTO) 10 % (2-9); NEUTROPHILS % (AUTO) 61 % (42-75)
[2018-11-24] MEDS: INSULIN LISPRO 100 UNITS/ML, PEN SQ-INSULIN SCH ×4 (07:00→20:50)
[2018-11-24] MEDS: TEMPLATE NON-FORMULARY MED. (Lanthanum Carbonate** (Fosrenol**) 1,000 MG) HOMEMEDPO SCH ×3 (08:00→17:00)
[2018-11-24] MEDS: SENNA/DOCUSATE TABLET PO SCH (09:00)
[2018-11-24] MEDS: CEFTRIAXONE PMX 2GM/50ML 50 ML IV SCH (09:02)
[2018-11-24] MEDS: FLUDROCORTISONE 0.1 MG TABLET PO SCH (09:02)
[2018-11-24] MEDS: RIFAXIMIN 550 MG TABLET PO SCH ×2 (09:02→20:49)
[2018-11-24] MEDS: MIDODRINE 5 MG TABLET PO SCH ×3 (09:03→20:49)
[2018-11-24] MEDS: FOLIC ACID 1 MG TABLET PO SCH (09:03)
[2018-11-24] MEDS: LACTULOSE 10 GM/15 ML UDC PO SCH ×2 (09:03→20:48)
[2018-11-24] MEDS: PANTOPROZOLE 40MG TABLET PO SCH ×2 (09:03→20:49)
[2018-11-24 19:59] LABS: MEAN CORPUSCULAR HEMOGLOBIN 34.5 pg (27.5-34.5); MEAN CORPUSCULAR HGB CONC 34.3 g/dL (33.2-36.2); MEAN CORPUSCULAR VOLUME 100.5 fL (81-97); MEAN PLATELET VOLUME 8.7 fL (7.4-10.4); PLATELET COUNT 50 x10^3/uL (130-400)
[2018-11-24 20:00] LABS: MD YES
[2018-11-24 20:03] LABS: RED CELL DISTRIBUTION WIDTH 24.9 % (9.4-14.8)
[2018-11-24 20:45] LABS: EOS% (MANUAL) 2 % (1-7); LYMPH#(MANUAL) 0.88 x10^3/uL (1-3.4); LYMPHS% (MANUAL) 18 % (22-44); MONOS#(MANUAL) 0.54 x10^3/uL (0.3-2.7); MONOS% (MANUAL) 11 % (2-9); REACTIVE LYMPHS # (MANUAL) 0.05 x10^3/uL (0-0); REACTIVE LYMPHS % (MANUAL) 1 % (0-0); SEG#(MANUAL) 3.33 x10^3/uL (1.8-6.8); SEGS% (MANUAL) 68 % (42-75)
[2018-11-24 20:47] LABS: POLYCHROMASIA 1+
[2018-11-24 20:48] LABS: OVALOCYTES 1+
[2018-11-24 20:49] LABS: <PLATELET ESTIMATE> DECREASED; TEAR DROPS 1+
[2018-11-24 20:50] LABS: <PLT MORPHOLOGY> NORMAL PLT MORPH
[2018-11-24] MEDS: INSULIN GLARGINE 100 UNITS/ML, PEN SQ-INSULIN SCH (20:50)
[2018-11-25] VITALS (10 sets, daily range): BP systolic 90–109; BP diastolic 44–64
[2018-11-25 03:12] LABS: MEAN CORPUSCULAR HEMOGLOBIN 34.8 pg (27.5-34.5); MEAN CORPUSCULAR HGB CONC 34.7 g/dL (33.2-36.2); MEAN CORPUSCULAR VOLUME 100.3 fL (81-97); RED BLOOD COUNT 1.99 x10^6/uL (4.38-5.82); RED CELL DISTRIBUTION WIDTH 26.6 % (9.4-14.8)
[2018-11-25 03:32] LABS: BASOPHILS # (AUTO) 0.04 x10^3/uL (0-0.1); BASOPHILS % (AUTO) 1 % (0-1); EOSINOPHILS % (AUTO) 0 % (1-7); LYMPHOCYTES # (AUTO) 1.02 x10^3/uL (1-3.4); LYMPHOCYTES % (AUTO) 27 % (22-44); MEAN PLATELET VOLUME 9.4 fL (7.4-10.4); MONOCYTES # (AUTO) 0.39 x10^3/uL (0.2-0.8); MONOCYTES % (AUTO) 10 % (2-9); NEUTROPHILS % (AUTO) 63 % (42-75)
[2018-11-25 03:34] LABS: PLATELET COUNT 46 x10^3/uL (130-400)
[2018-11-25 03:35] LABS: MD NO
[2018-11-25] MEDS: INSULIN LISPRO 100 UNITS/ML, PEN SQ-INSULIN SCH ×4 (07:00→21:00)
[2018-11-25] MEDS: TEMPLATE NON-FORMULARY MED. (Lanthanum Carbonate** (Fosrenol**) 1,000 MG) HOMEMEDPO SCH ×3 (08:00→17:00)
[2018-11-25] MEDS: LACTULOSE 10 GM/15 ML UDC PO SCH ×2 (08:26→21:10)
[2018-11-25] MEDS: RIFAXIMIN 550 MG TABLET PO SCH ×2 (08:26→21:10)
[2018-11-25] MEDS: CEFTRIAXONE PMX 2GM/50ML 50 ML IV SCH (08:26)
[2018-11-25] MEDS: PANTOPROZOLE 40MG TABLET PO SCH ×2 (08:27→21:10)
[2018-11-25] MEDS: SENNA/DOCUSATE TABLET PO SCH (08:27)
[2018-11-25] MEDS: FLUDROCORTISONE 0.1 MG TABLET PO SCH (08:27)
[2018-11-25] MEDS: FOLIC ACID 1 MG TABLET PO SCH (08:27)
[2018-11-25] MEDS: MIDODRINE 5 MG TABLET PO SCH ×3 (08:28→21:10)
[2018-11-25] MEDS: AMPICILLIN 2 GM in SODIUM CHLORIDE 0.9% 100 ML IV SCH ×2 (08:35→21:10)
[2018-11-25 09:27] LABS: ALANINE AMINOTRANSFERASE 12 U/L (12-78); ALBUMIN 1.6 g/dL (3.4-5.0); ANION GAP 10 mmol/L (5-15); CALCIUM 8.2 mg/dL (8.5-10.1); CHLORIDE 101 mmol/L (98-107); CREATININE 5.97 mg/dL (0.7-1.3)
[2018-11-25 09:29] LABS: ALKALINE PHOSPHATASE 148 U/L (45-117); BILIRUBIN,TOTAL 1.5 mg/dL (0.2-1.0); TOTAL PROTEIN 4.7 g/dL (6.4-8.2)
[2018-11-25 09:39] LABS: BASOPHILS # (AUTO) 0.01 x10^3/uL (0-0.1); BASOPHILS % (AUTO) 0 % (0-1); EOSINOPHILS % (AUTO) 0 % (1-7); LYMPHOCYTES # (AUTO) 0.92 x10^3/uL (1-3.4); LYMPHOCYTES % (AUTO) 27 % (22-44); MD SCAN; MEAN CORPUSCULAR HEMOGLOBIN 33.4 pg (27.5-34.5); MEAN CORPUSCULAR HGB CONC 33.6 g/dL (33.2-36.2); MEAN CORPUSCULAR VOLUME 99.3 fL (81-97); MONOCYTES # (AUTO) 0.32 x10^3/uL (0.2-0.8); MONOCYTES % (AUTO) 9 % (2-9); NEUTROPHILS % (AUTO) 64 % (42-75); PLATELET COUNT 51 x10^3/uL (130-400); RED BLOOD COUNT 2.33 x10^6/uL (4.38-5.82); RED CELL DISTRIBUTION WIDTH 25.6 % (9.4-14.8)
[2018-11-25] MEDS ORDERED: EPINEPHRINE 1 MG/ML, 1ML ONE ×2 (10:06→12:05)
[2018-11-25] MEDS ORDERED: LIDOCAINE 1%, 20ML ONE (10:07)
[2018-11-25] MEDS ORDERED: NEOSPORIN OINT, 15GM ONE (10:13)
[2018-11-25] MEDS ORDERED: MIDAZOLAM 1 MG/ML, 2ML ONE ×3 (10:37→11:10)
[2018-11-25] MEDS ORDERED: FENTANYL PF 250 MCG/5ML ONE (10:37)
[2018-11-25] MEDS ORDERED: ONDANSETRON 2MG/ML, 2ML IV PRN (11:00)
[2018-11-25] MEDS ORDERED: OXYcodone 5 MG/5 ML ORAL.SOL UDC PO PRN (11:00)
[2018-11-25] MEDS ORDERED: ONDANSETRON ODT 8 MG PO PRN (11:00)
[2018-11-25] MEDS ORDERED: LABETALOL 5MG/ML, 20ML IV PRN (11:00)
[2018-11-25] MEDS ORDERED: FENTANYL PF 100 MCG/2ML IV PRN (11:00)
[2018-11-25] MEDS ORDERED: MEPERIDINE/PF 25MG/0.5ML IVPush PRN (11:00)
[2018-11-25] MEDS ORDERED: hydrALAzine 20 MG/ML, 1ML IV PRN (11:00)
[2018-11-25] MEDS ORDERED: BUPIVACAINE/PF 0.25% ONE (12:05)
[2018-11-25] MEDS ORDERED: BUPIVACAINE/PF-EPI 0.5% 1:200K ONE (12:05)
[2018-11-25] MEDS ORDERED: HYDROmorphone 1 MG/ML, 1ML VIAL ONE (12:27)
[2018-11-25] MEDS: HYDROmorphone 2 MG/ML, 1ML IVPush PRN ×2 (12:29→12:47)
[2018-11-25] MEDS: morphine SULFATE 10 MG/ML, 1ML IVPush PRN (15:45)
[2018-11-25] MEDS: INSULIN GLARGINE 100 UNITS/ML, PEN SQ-INSULIN SCH (21:11)
[2018-11-26 02:00] VITALS: BP 96/58
[2018-11-26] MEDS: morphine SULFATE 10 MG/ML, 1ML IVPush PRN (02:34)
[2018-11-26 06:12] LABS: MEAN CORPUSCULAR HEMOGLOBIN 34.7 pg (27.5-34.5); MEAN CORPUSCULAR HGB CONC 34.6 g/dL (33.2-36.2); MEAN CORPUSCULAR VOLUME 100.3 fL (81-97); RED BLOOD COUNT 2.09 x10^6/uL (4.38-5.82); RED CELL DISTRIBUTION WIDTH 26.4 % (9.4-14.8)
[2018-11-26 06:21] LABS: ALBUMIN 1.6 g/dL (3.4-5.0); ANION GAP 10 mmol/L (5-15); CALCIUM 7.9 mg/dL (8.5-10.1); CHLORIDE 101 mmol/L (98-107); CREATININE 6.82 mg/dL (0.7-1.3)
[2018-11-26 06:28] LABS: MD YES
[2018-11-26 06:36] LABS: LYMPH#(MANUAL) 0.99 x10^3/uL (1-3.4); LYMPHS% (MANUAL) 30 % (22-44); MONOS#(MANUAL) 0.26 x10^3/uL (0.3-2.7); MONOS% (MANUAL) 8 % (2-9); SEG#(MANUAL) 2.05 x10^3/uL (1.8-6.8); SEGS% (MANUAL) 62 % (42-75)
[2018-11-26 06:37] LABS: ANISOCYTOSIS 2+; POLYCHROMASIA 1+
[2018-11-26 06:38] LABS: <PLATELET ESTIMATE> DECREASED; <PLT MORPHOLOGY> NORMAL PLT MORPH; MEAN PLATELET VOLUME 9.4 fL (7.4-10.4); PLATELET COUNT 56 x10^3/uL (130-400)
[2018-11-26] MEDS: INSULIN LISPRO 100 UNITS/ML, PEN SQ-INSULIN SCH ×4 (07:00→20:51)
[2018-11-26 07:20] VITALS: BP 100/59
[2018-11-26] MEDS: TEMPLATE NON-FORMULARY MED. (Lanthanum Carbonate** (Fosrenol**) 1,000 MG) HOMEMEDPO SCH ×3 (08:00→17:00)
[2018-11-26] MEDS: MIDODRINE 5 MG TABLET PO SCH ×3 (08:55→20:50)
[2018-11-26] MEDS: SENNA/DOCUSATE TABLET PO SCH (09:00)
[2018-11-26] MEDS: LACTULOSE 10 GM/15 ML UDC PO SCH ×2 (09:00→20:50)
[2018-11-26] MEDS: AMPICILLIN 2 GM in SODIUM CHLORIDE 0.9% 100 ML IV SCH ×2 (12:17→20:50)
[2018-11-26] MEDS: PANTOPROZOLE 40MG TABLET PO SCH ×2 (12:17→20:50)
[2018-11-26] MEDS: FLUDROCORTISONE 0.1 MG TABLET PO SCH (12:17)
[2018-11-26] MEDS: FOLIC ACID 1 MG TABLET PO SCH (12:17)
[2018-11-26] MEDS: RIFAXIMIN 550 MG TABLET PO SCH ×2 (12:17→20:50)
[2018-11-26] MEDS: CEFTRIAXONE PMX 2GM/50ML 50 ML IV SCH (13:09)
[2018-11-26 13:34] VITALS: BP 103/64
[2018-11-26 18:45] VITALS: BP 89/54
[2018-11-26] MEDS: INSULIN GLARGINE 100 UNITS/ML, PEN SQ-INSULIN SCH (20:51)
[2018-11-27] VITALS (7 sets, daily range): BP systolic 93–102; BP diastolic 41–61
[2018-11-27] MEDS: INSULIN LISPRO 100 UNITS/ML, PEN SQ-INSULIN SCH ×4 (07:00→20:37)
[2018-11-27 07:29] LABS: ALBUMIN 1.5 g/dL (3.4-5.0); ANION GAP 9 mmol/L (5-15); CALCIUM 7.8 mg/dL (8.5-10.1); CHLORIDE 103 mmol/L (98-107); CREATININE 5.34 mg/dL (0.7-1.3)
[2018-11-27 07:33] LABS: MEAN CORPUSCULAR HEMOGLOBIN 33.8 pg (27.5-34.5); MEAN CORPUSCULAR HGB CONC 33.6 g/dL (33.2-36.2); MEAN CORPUSCULAR VOLUME 100.8 fL (81-97); PLATELET COUNT 55 x10^3/uL (130-400); RED BLOOD COUNT 2.04 x10^6/uL (4.38-5.82); RED CELL DISTRIBUTION WIDTH 26.7 % (9.4-14.8)
[2018-11-27 07:36] LABS: BASOPHILS # (AUTO) 0.02 x10^3/uL (0-0.1); BASOPHILS % (AUTO) 1 % (0-1); EOSINOPHILS % (AUTO) 0 % (1-7); LYMPHOCYTES # (AUTO) 0.86 x10^3/uL (1-3.4); LYMPHOCYTES % (AUTO) 25 % (22-44); MD SCAN; MONOCYTES % (AUTO) 12 % (2-9); NEUTROPHILS # (AUTO) 2.11 x10^3/uL (1.8-6.8); NEUTROPHILS % (AUTO) 62 % (42-75)
[2018-11-27] MEDS: TEMPLATE NON-FORMULARY MED. (Lanthanum Carbonate** (Fosrenol**) 1,000 MG) HOMEMEDPO SCH ×3 (08:00→17:00)
[2018-11-27] MEDS: SENNA/DOCUSATE TABLET PO SCH (09:00)
[2018-11-27] MEDS: MIDODRINE 5 MG TABLET PO SCH ×3 (09:03→20:36)
[2018-11-27] MEDS: AMPICILLIN 2 GM in SODIUM CHLORIDE 0.9% 100 ML IV SCH ×2 (09:04→20:35)
[2018-11-27] MEDS: RIFAXIMIN 550 MG TABLET PO SCH ×2 (09:04→20:36)
[2018-11-27] MEDS: FOLIC ACID 1 MG TABLET PO SCH (09:04)
[2018-11-27] MEDS: PANTOPROZOLE 40MG TABLET PO SCH ×2 (09:04→20:36)
[2018-11-27] MEDS: FLUDROCORTISONE 0.1 MG TABLET PO SCH (09:04)
[2018-11-27] MEDS: LACTULOSE 10 GM/15 ML UDC PO SCH ×2 (09:20→20:36)
[2018-11-27] MEDS: CEFTRIAXONE PMX 2GM/50ML 50 ML IV SCH (10:07)
[2018-11-27] MEDS: ALBUMIN HUMAN 25% 100 ML IV PRN (12:11)
[2018-11-27] MEDS: ARANESP 200 MCG/ML **ESRD SQ SCH (20:36)
[2018-11-27] MEDS: INSULIN GLARGINE 100 UNITS/ML, PEN SQ-INSULIN SCH (20:37)
[2018-11-28] VITALS (12 sets, daily range): BP systolic 86–101; BP diastolic 38–59
[2018-11-28 02:12] LABS: MEAN CORPUSCULAR HEMOGLOBIN 34.5 pg (27.5-34.5); MEAN CORPUSCULAR HGB CONC 34.6 g/dL (33.2-36.2); MEAN CORPUSCULAR VOLUME 99.9 fL (81-97); MEAN PLATELET VOLUME 9.2 fL (7.4-10.4); RED BLOOD COUNT 2.07 x10^6/uL (4.38-5.82); RED CELL DISTRIBUTION WIDTH 27.3 % (9.4-14.8)
[2018-11-28 02:13] LABS: PLATELET COUNT 45 x10^3/uL (130-400)
[2018-11-28 02:17] LABS: BASOPHILS # (AUTO) 0.02 x10^3/uL (0-0.1); BASOPHILS % (AUTO) 1 % (0-1); EOSINOPHILS # (AUTO) 0.01 x10^3/uL (0-0.4); EOSINOPHILS % (AUTO) 0 % (1-7); LYMPHOCYTES % (AUTO) 30 % (22-44); MD SCAN; MONOCYTES # (AUTO) 0.31 x10^3/uL (0.2-0.8); MONOCYTES % (AUTO) 11 % (2-9); NEUTROPHILS # (AUTO) 1.76 x10^3/uL (1.8-6.8); NEUTROPHILS % (AUTO) 59 % (42-75)
[2018-11-28] MEDS: INSULIN LISPRO 100 UNITS/ML, PEN SQ-INSULIN SCH ×4 (07:00→20:23)
[2018-11-28] MEDS: TEMPLATE NON-FORMULARY MED. (Lanthanum Carbonate** (Fosrenol**) 1,000 MG) HOMEMEDPO SCH ×3 (08:00→17:00)
[2018-11-28] MEDS: AMPICILLIN 2 GM in SODIUM CHLORIDE 0.9% 100 ML IV SCH ×2 (08:54→20:21)
[2018-11-28] MEDS: FLUDROCORTISONE 0.1 MG TABLET PO SCH (08:54)
[2018-11-28] MEDS: RIFAXIMIN 550 MG TABLET PO SCH ×2 (08:55→20:22)
[2018-11-28] MEDS: MIDODRINE 5 MG TABLET PO SCH ×3 (08:55→20:23)
[2018-11-28] MEDS: FOLIC ACID 1 MG TABLET PO SCH (08:55)
[2018-11-28] MEDS: SENNA/DOCUSATE TABLET PO SCH (08:55)
[2018-11-28] MEDS: PANTOPROZOLE 40MG TABLET PO SCH ×2 (08:55→20:22)
[2018-11-28] MEDS: CEFTRIAXONE PMX 2GM/50ML 50 ML IV SCH ×2 (09:00→10:14)
[2018-11-28] MEDS: LACTULOSE 10 GM/15 ML UDC PO SCH ×2 (10:14→20:22)
[2018-11-28] MEDS: INSULIN GLARGINE 100 UNITS/ML, PEN SQ-INSULIN SCH (20:21)
[2018-11-29 01:12] VITALS: BP 93/52
[2018-11-29 06:00] LABS: MEAN CORPUSCULAR HEMOGLOBIN 34.1 pg (27.5-34.5); MEAN CORPUSCULAR HGB CONC 34.5 g/dL (33.2-36.2); MEAN PLATELET VOLUME 8.9 fL (7.4-10.4); RED BLOOD COUNT 2.26 x10^6/uL (4.38-5.82)
[2018-11-29 06:32] LABS: PLATELET COUNT 41 x10^3/uL (130-400); RED CELL DISTRIBUTION WIDTH 26.6 % (9.4-14.8)
[2018-11-29 06:46] LABS: BASOPHILS # (AUTO) 0.01 x10^3/uL (0-0.1); BASOPHILS % (AUTO) 1 % (0-1); EOSINOPHILS # (AUTO) 0.04 x10^3/uL (0-0.4); EOSINOPHILS % (AUTO) 2 % (1-7); LYMPHOCYTES # (AUTO) 0.82 x10^3/uL (1-3.4); LYMPHOCYTES % (AUTO) 30 % (22-44); MD SCAN; MONOCYTES # (AUTO) 0.29 x10^3/uL (0.2-0.8); MONOCYTES % (AUTO) 10 % (2-9); NEUTROPHILS # (AUTO) 1.59 x10^3/uL (1.8-6.8); NEUTROPHILS % (AUTO) 58 % (42-75)
[2018-11-29] MEDS: INSULIN LISPRO 100 UNITS/ML, PEN SQ-INSULIN SCH ×4 (07:00→20:52)
[2018-11-29 07:30] VITALS: BP 109/61
[2018-11-29] MEDS: FLUDROCORTISONE 0.1 MG TABLET PO SCH (08:13)
[2018-11-29] MEDS: FOLIC ACID 1 MG TABLET PO SCH (08:13)
[2018-11-29] MEDS: PANTOPROZOLE 40MG TABLET PO SCH ×2 (08:13→20:34)
[2018-11-29] MEDS: RIFAXIMIN 550 MG TABLET PO SCH ×2 (08:13→20:34)
[2018-11-29] MEDS: SENNA/DOCUSATE TABLET PO SCH (08:13)
[2018-11-29] MEDS: AMPICILLIN 2 GM in SODIUM CHLORIDE 0.9% 100 ML IV SCH ×2 (08:14→20:33)
[2018-11-29] MEDS: MIDODRINE 5 MG TABLET PO SCH ×3 (08:14→20:34)
[2018-11-29] MEDS: LACTULOSE 10 GM/15 ML UDC PO SCH ×2 (08:14→20:34)
[2018-11-29] MEDS: CEFTRIAXONE PMX 2GM/50ML 50 ML IV SCH (09:58)
[2018-11-29] MEDS: TEMPLATE NON-FORMULARY MED. (Lanthanum Carbonate** (Fosrenol**) 1,000 MG) HOMEMEDPO SCH ×3 (10:00→17:00)
[2018-11-29 13:09] VITALS: BP 104/64
[2018-11-29 20:18] VITALS: BP 119/66
[2018-11-29] MEDS: INSULIN GLARGINE 100 UNITS/ML, PEN SQ-INSULIN SCH (20:47)
[2018-11-30 01:56] VITALS: BP 102/57
[2018-11-30] MEDS: INSULIN LISPRO 100 UNITS/ML, PEN SQ-INSULIN SCH ×4 (07:00→20:47)
[2018-11-30 07:08] VITALS: BP 103/60
[2018-11-30] MEDS: SENNA/DOCUSATE TABLET PO SCH (07:56)
[2018-11-30] MEDS: TEMPLATE NON-FORMULARY MED. (Lanthanum Carbonate** (Fosrenol**) 1,000 MG) HOMEMEDPO SCH ×3 (08:00→17:00)
[2018-11-30] MEDS: PANTOPROZOLE 40MG TABLET PO SCH ×3 (08:05→21:03)
[2018-11-30] MEDS: RIFAXIMIN 550 MG TABLET PO SCH ×3 (08:05→21:02)
[2018-11-30] MEDS: FLUDROCORTISONE 0.1 MG TABLET PO SCH ×2 (08:05→13:25)
[2018-11-30] MEDS: AMPICILLIN 2 GM in SODIUM CHLORIDE 0.9% 100 ML IV SCH ×2 (08:05→13:24)
[2018-11-30] MEDS: FOLIC ACID 1 MG TABLET PO SCH ×2 (08:05→13:25)
[2018-11-30] MEDS: LACTULOSE 10 GM/15 ML UDC PO SCH ×3 (08:06→21:02)
[2018-11-30] MEDS: MIDODRINE 5 MG TABLET PO SCH ×3 (08:06→21:03)
[2018-11-30 10:17] LABS: MEAN CORPUSCULAR HEMOGLOBIN 33.3 pg (27.5-34.5); MEAN CORPUSCULAR HGB CONC 33.4 g/dL (33.2-36.2); MEAN CORPUSCULAR VOLUME 99.6 fL (81-97); RED CELL DISTRIBUTION WIDTH 28.4 % (9.4-14.8)
[2018-11-30 10:36] LABS: BASOPHILS # (AUTO) 0.05 x10^3/uL (0-0.1); BASOPHILS % (AUTO) 1 % (0-1); EOSINOPHILS % (AUTO) 0 % (1-7); LYMPHOCYTES # (AUTO) 0.84 x10^3/uL (1-3.4); LYMPHOCYTES % (AUTO) 26 % (22-44); MD MORPH REVIEW ONLY; MEAN PLATELET VOLUME 8.5 fL (7.4-10.4); MONOCYTES # (AUTO) 0.28 x10^3/uL (0.2-0.8); MONOCYTES % (AUTO) 9 % (2-9); NEUTROPHILS # (AUTO) 2.02 x10^3/uL (1.8-6.8); NEUTROPHILS % (AUTO) 64 % (42-75)
[2018-11-30 10:39] LABS: PLATELET COUNT 46 x10^3/uL (130-400)
[2018-11-30 10:40] LABS: <PLATELET ESTIMATE> DECREASED; <PLT MORPHOLOGY> NORMAL PLT MORPH; ANISOCYTOSIS 1+; OVALOCYTES 1+; POLYCHROMASIA 1+
[2018-11-30 13:21] VITALS: BP 97/48
[2018-11-30] MEDS: CEFTRIAXONE PMX 2GM/50ML 50 ML IV SCH (15:03)
[2018-11-30 18:57] VITALS: BP 105/67
[2018-11-30] MEDS: INSULIN GLARGINE 100 UNITS/ML, PEN SQ-INSULIN SCH (21:02)
[2018-12-01] VITALS (10 sets, daily range): BP systolic 88–114; BP diastolic 46–63
[2018-12-01] MEDS: AMPICILLIN 2 GM in SODIUM CHLORIDE 0.9% 100 ML IV SCH ×2 (01:46→14:09)
[2018-12-01 05:58] LABS: MEAN CORPUSCULAR HEMOGLOBIN 34.1 pg (27.5-34.5); MEAN CORPUSCULAR HGB CONC 33.9 g/dL (33.2-36.2); MEAN CORPUSCULAR VOLUME 100.8 fL (81-97); RED BLOOD COUNT 2.14 x10^6/uL (4.38-5.82); RED CELL DISTRIBUTION WIDTH 28.3 % (9.4-14.8)
[2018-12-01 06:02] LABS: ALBUMIN 1.7 g/dL (3.4-5.0); ANION GAP 7 mmol/L (5-15); CALCIUM 7.8 mg/dL (8.5-10.1); CHLORIDE 103 mmol/L (98-107)
[2018-12-01 06:07] LABS: ALANINE AMINOTRANSFERASE 10 U/L (12-78); ALKALINE PHOSPHATASE 122 U/L (45-117); BILIRUBIN,TOTAL 1.2 mg/dL (0.2-1.0); CREATININE 5.03 mg/dL (0.7-1.3); TOTAL PROTEIN 4.7 g/dL (6.4-8.2)
[2018-12-01 06:30] LABS: BASOPHILS # (AUTO) 0.03 x10^3/uL (0-0.1); BASOPHILS % (AUTO) 1 % (0-1); EOSINOPHILS # (AUTO) 0.08 x10^3/uL (0-0.4); EOSINOPHILS % (AUTO) 3 % (1-7); LYMPHOCYTES # (AUTO) 0.74 x10^3/uL (1-3.4); LYMPHOCYTES % (AUTO) 24 % (22-44); MD SCAN; MONOCYTES # (AUTO) 0.36 x10^3/uL (0.2-0.8); MONOCYTES % (AUTO) 12 % (2-9); NEUTROPHILS # (AUTO) 1.84 x10^3/uL (1.8-6.8); NEUTROPHILS % (AUTO) 60 % (42-75)
[2018-12-01 06:31] LABS: PLATELET COUNT 36 x10^3/uL (130-400)
[2018-12-01] MEDS: INSULIN LISPRO 100 UNITS/ML, PEN SQ-INSULIN SCH ×4 (07:00→21:00)
[2018-12-01] MEDS: TEMPLATE NON-FORMULARY MED. (Lanthanum Carbonate** (Fosrenol**) 1,000 MG) HOMEMEDPO SCH ×3 (08:00→17:00)
[2018-12-01] MEDS: RIFAXIMIN 550 MG TABLET PO SCH ×2 (08:38→22:10)
[2018-12-01] MEDS: CEFTRIAXONE PMX 2GM/50ML 50 ML IV SCH (08:38)
[2018-12-01] MEDS: PANTOPROZOLE 40MG TABLET PO SCH ×2 (08:39→22:10)
[2018-12-01] MEDS: MIDODRINE 5 MG TABLET PO SCH ×3 (08:39→22:10)
[2018-12-01] MEDS: SENNA/DOCUSATE TABLET PO SCH (08:39)
[2018-12-01] MEDS: LACTULOSE 10 GM/15 ML UDC PO SCH ×2 (08:39→22:10)
[2018-12-01] MEDS ORDERED: ACETAMINOPHEN 325 MG TABLET PO ONE (10:00)
[2018-12-01] MEDS: INSULIN GLARGINE 100 UNITS/ML, PEN SQ-INSULIN SCH (22:22)
[2018-12-02] VITALS (7 sets, daily range): BP systolic 94–118; BP diastolic 41–69
[2018-12-02] MEDS: AMPICILLIN 2 GM in SODIUM CHLORIDE 0.9% 100 ML IV SCH ×2 (01:38→14:02)
[2018-12-02 06:32] LABS: MEAN CORPUSCULAR HEMOGLOBIN 34.6 pg (27.5-34.5); MEAN CORPUSCULAR HGB CONC 34.5 g/dL (33.2-36.2); MEAN CORPUSCULAR VOLUME 100.3 fL (81-97); MEAN PLATELET VOLUME 8.4 fL (7.4-10.4); PLATELET COUNT 50 x10^3/uL (130-400); RED BLOOD COUNT 1.96 x10^6/uL (4.38-5.82)
[2018-12-02 06:39] LABS: BASOPHILS # (AUTO) 0.02 x10^3/uL (0-0.1); BASOPHILS % (AUTO) 1 % (0-1); EOSINOPHILS # (AUTO) 0.02 x10^3/uL (0-0.4); EOSINOPHILS % (AUTO) 1 % (1-7); LYMPHOCYTES # (AUTO) 0.73 x10^3/uL (1-3.4); LYMPHOCYTES % (AUTO) 30 % (22-44); MD SCAN; MONOCYTES # (AUTO) 0.21 x10^3/uL (0.2-0.8); MONOCYTES % (AUTO) 9 % (2-9); NEUTROPHILS # (AUTO) 1.42 x10^3/uL (1.8-6.8); NEUTROPHILS % (AUTO) 59 % (42-75)
[2018-12-02] MEDS: TEMPLATE NON-FORMULARY MED. (Lanthanum Carbonate** (Fosrenol**) 1,000 MG) HOMEMEDPO SCH ×3 (08:00→17:47)
[2018-12-02] MEDS: INSULIN LISPRO 100 UNITS/ML, PEN SQ-INSULIN SCH ×4 (08:51→21:29)
[2018-12-02] MEDS: SENNA/DOCUSATE TABLET PO SCH (12:19)
[2018-12-02] MEDS: FLUDROCORTISONE 0.1 MG TABLET PO SCH (12:58)
[2018-12-02] MEDS: LACTULOSE 10 GM/15 ML UDC PO SCH ×2 (12:58→21:27)
[2018-12-02] MEDS: PANTOPROZOLE 40MG TABLET PO SCH ×2 (12:59→21:27)
[2018-12-02] MEDS: FOLIC ACID 1 MG TABLET PO SCH (12:59)
[2018-12-02] MEDS: MIDODRINE 5 MG TABLET PO SCH ×3 (12:59→21:27)
[2018-12-02] MEDS: RIFAXIMIN 550 MG TABLET PO SCH ×2 (12:59→21:28)
[2018-12-02] MEDS: CEFTRIAXONE PMX 2GM/50ML 50 ML IV SCH (13:00)
[2018-12-02] MEDS: INSULIN GLARGINE 100 UNITS/ML, PEN SQ-INSULIN SCH (21:29)
[2018-12-03] MEDS: AMPICILLIN 2 GM in SODIUM CHLORIDE 0.9% 100 ML IV SCH ×2 (01:34→13:33)
[2018-12-03 01:40] VITALS: BP 109/65
[2018-12-03 07:13] LABS: MEAN CORPUSCULAR HEMOGLOBIN 34.3 pg (27.5-34.5); MEAN CORPUSCULAR HGB CONC 34.1 g/dL (33.2-36.2); MEAN CORPUSCULAR VOLUME 100.6 fL (81-97); MEAN PLATELET VOLUME 8.8 fL (7.4-10.4); RED BLOOD COUNT 2.12 x10^6/uL (4.38-5.82)
[2018-12-03 07:16] LABS: PLATELET COUNT 48 x10^3/uL (130-400)
[2018-12-03 07:34] LABS: BASOPHILS # (AUTO) 0.01 x10^3/uL (0-0.1); BASOPHILS % (AUTO) 0 % (0-1); EOSINOPHILS % (AUTO) 0 % (1-7); LYMPHOCYTES # (AUTO) 0.71 x10^3/uL (1-3.4); LYMPHOCYTES % (AUTO) 25 % (22-44); MD SCAN; MONOCYTES # (AUTO) 0.33 x10^3/uL (0.2-0.8); MONOCYTES % (AUTO) 11 % (2-9); NEUTROPHILS # (AUTO) 1.86 x10^3/uL (1.8-6.8); NEUTROPHILS % (AUTO) 64 % (42-75)
[2018-12-03 07:48] VITALS: BP 88/48
[2018-12-03] MEDS: LACTULOSE 10 GM/15 ML UDC PO SCH ×2 (10:02→22:08)
[2018-12-03] MEDS: PANTOPROZOLE 40MG TABLET PO SCH ×2 (10:02→22:08)
[2018-12-03] MEDS: FLUDROCORTISONE 0.1 MG TABLET PO SCH (10:02)
[2018-12-03] MEDS: FOLIC ACID 1 MG TABLET PO SCH (10:02)
[2018-12-03] MEDS: RIFAXIMIN 550 MG TABLET PO SCH ×2 (10:02→22:09)
[2018-12-03] MEDS: MIDODRINE 5 MG TABLET PO SCH ×3 (10:02→22:08)
[2018-12-03] MEDS: INSULIN LISPRO 100 UNITS/ML, PEN SQ-INSULIN SCH ×4 (10:03→20:00)
[2018-12-03] MEDS: TEMPLATE NON-FORMULARY MED. (Lanthanum Carbonate** (Fosrenol**) 1,000 MG) HOMEMEDPO SCH ×3 (10:03→17:48)
[2018-12-03] MEDS: CEFTRIAXONE PMX 2GM/50ML 50 ML IV SCH (10:03)
[2018-12-03] MEDS: SENNA/DOCUSATE TABLET PO SCH (10:03)
[2018-12-03 13:53] VITALS: BP 93/54
[2018-12-03 19:45] VITALS: BP 102/58
[2018-12-03] MEDS: INSULIN GLARGINE 100 UNITS/ML, PEN SQ-INSULIN SCH (22:09)
[2018-12-04 00:37] VITALS: BP 104/55
[2018-12-04] MEDS: AMPICILLIN 2 GM in SODIUM CHLORIDE 0.9% 100 ML IV SCH ×2 (01:42→14:26)
[2018-12-04 06:18] LABS: HCT (SEDRATE) 19.9 % (39.2-51.8)
[2018-12-04 07:06] VITALS: BP 108/59
[2018-12-04] MEDS: ALBUMIN HUMAN 25% 100 ML IV PRN ×2 (08:47→10:52)
[2018-12-04] MEDS: MIDODRINE 5 MG TABLET PO SCH ×3 (08:47→22:17)
[2018-12-04] MEDS: FOLIC ACID 1 MG TABLET PO SCH (08:47)
[2018-12-04] MEDS: RIFAXIMIN 550 MG TABLET PO SCH ×2 (08:47→22:17)
[2018-12-04] MEDS: PANTOPROZOLE 40MG TABLET PO SCH ×2 (08:47→22:17)
[2018-12-04] MEDS: LACTULOSE 10 GM/15 ML UDC PO SCH ×2 (08:47→22:16)
[2018-12-04] MEDS: FLUDROCORTISONE 0.1 MG TABLET PO SCH (08:47)
[2018-12-04] MEDS: INSULIN LISPRO 100 UNITS/ML, PEN SQ-INSULIN SCH ×4 (08:48→21:32)
[2018-12-04] MEDS: TEMPLATE NON-FORMULARY MED. (Lanthanum Carbonate** (Fosrenol**) 1,000 MG) HOMEMEDPO SCH ×3 (08:48→18:05)
[2018-12-04] MEDS: SENNA/DOCUSATE TABLET PO SCH (08:48)
[2018-12-04 09:20] VITALS: BP 86/36
[2018-12-04 09:33] VITALS: BP 90/42
[2018-12-04] MEDS: CEFTRIAXONE PMX 2GM/50ML 50 ML IV SCH (13:10)
[2018-12-04 13:17] VITALS: BP 105/62
[2018-12-04 19:29] VITALS: BP 95/59
[2018-12-04] MEDS: ARANESP 200 MCG/ML **ESRD SQ SCH (22:18)
[2018-12-04] MEDS: INSULIN GLARGINE 100 UNITS/ML, PEN SQ-INSULIN SCH (22:19)
[2018-12-05 01:27] VITALS: BP 101/48
[2018-12-05] MEDS: AMPICILLIN 2 GM in SODIUM CHLORIDE 0.9% 100 ML IV SCH ×2 (02:23→14:30)
[2018-12-05] MEDS: INSULIN LISPRO 100 UNITS/ML, PEN SQ-INSULIN SCH ×4 (07:00→21:47)
[2018-12-05 07:21] VITALS: BP 106/51
[2018-12-05] MEDS: TEMPLATE NON-FORMULARY MED. (Lanthanum Carbonate** (Fosrenol**) 1,000 MG) HOMEMEDPO SCH ×3 (08:00→17:00)
[2018-12-05] MEDS: FLUDROCORTISONE 0.1 MG TABLET PO SCH (09:00)
[2018-12-05] MEDS: PANTOPROZOLE 40MG TABLET PO SCH ×2 (09:00→21:53)
[2018-12-05] MEDS: MIDODRINE 5 MG TABLET PO SCH ×3 (09:00→21:53)
[2018-12-05] MEDS: SENNA/DOCUSATE TABLET PO SCH (09:00)
[2018-12-05] MEDS: LACTULOSE 10 GM/15 ML UDC PO SCH ×2 (09:00→21:53)
[2018-12-05] MEDS: CEFTRIAXONE PMX 2GM/50ML 50 ML IV SCH (09:00)
[2018-12-05] MEDS: RIFAXIMIN 550 MG TABLET PO SCH ×2 (09:00→21:53)
[2018-12-05] MEDS: FOLIC ACID 1 MG TABLET PO SCH (09:00)
[2018-12-05 14:10] VITALS: BP 110/54
[2018-12-05 18:47] VITALS: BP 109/62
[2018-12-05] MEDS: INSULIN GLARGINE 100 UNITS/ML, PEN SQ-INSULIN SCH (22:08)
[2018-12-06 00:52] VITALS: BP 86/49
[2018-12-06] MEDS: AMPICILLIN 2 GM in SODIUM CHLORIDE 0.9% 100 ML IV SCH ×2 (02:34→14:30)
[2018-12-06 06:22] LABS: MEAN CORPUSCULAR HGB CONC 34.1 g/dL (33.2-36.2); MEAN CORPUSCULAR VOLUME 102.9 fL (81-97); MEAN PLATELET VOLUME 8.8 fL (7.4-10.4); RED BLOOD COUNT 2.13 x10^6/uL (4.38-5.82); RED CELL DISTRIBUTION WIDTH 28.4 % (9.4-14.8)
[2018-12-06 06:25] LABS: PLATELET COUNT 42 x10^3/uL (130-400)
[2018-12-06 06:34] LABS: ALBUMIN 1.9 g/dL (3.4-5.0); CALCIUM 7.9 mg/dL (8.5-10.1)
[2018-12-06 06:38] LABS: ANION GAP 9 mmol/L (5-15); CHLORIDE 106 mmol/L (98-107)
[2018-12-06 06:45] LABS: CREATININE 5.69 mg/dL (0.7-1.3)
[2018-12-06 06:46] LABS: ALANINE AMINOTRANSFERASE 10 U/L (12-78); ALKALINE PHOSPHATASE 120 U/L (45-117); BILIRUBIN,TOTAL 1.4 mg/dL (0.2-1.0); TOTAL PROTEIN 4.8 g/dL (6.4-8.2)
[2018-12-06 06:53] LABS: BASOPHILS # (AUTO) 0.04 x10^3/uL (0-0.1); BASOPHILS % (AUTO) 1 % (0-1); EOSINOPHILS # (AUTO) 0.01 x10^3/uL (0-0.4); EOSINOPHILS % (AUTO) 0 % (1-7); LYMPHOCYTES # (AUTO) 0.79 x10^3/uL (1-3.4); LYMPHOCYTES % (AUTO) 24 % (22-44); MD SCAN; MONOCYTES # (AUTO) 0.32 x10^3/uL (0.2-0.8); MONOCYTES % (AUTO) 10 % (2-9); NEUTROPHILS # (AUTO) 2.16 x10^3/uL (1.8-6.8); NEUTROPHILS % (AUTO) 65 % (42-75)
[2018-12-06] MEDS: INSULIN LISPRO 100 UNITS/ML, PEN SQ-INSULIN SCH ×4 (07:00→21:25)
[2018-12-06] MEDS: TEMPLATE NON-FORMULARY MED. (Lanthanum Carbonate** (Fosrenol**) 1,000 MG) HOMEMEDPO SCH ×3 (08:00→17:00)
[2018-12-06 08:26] VITALS: BP 106/62
[2018-12-06] MEDS: FLUDROCORTISONE 0.1 MG TABLET PO SCH (09:00)
[2018-12-06] MEDS: RIFAXIMIN 550 MG TABLET PO SCH ×2 (09:00→21:33)
[2018-12-06] MEDS: CEFTRIAXONE PMX 2GM/50ML 50 ML IV SCH (09:00)
[2018-12-06] MEDS: FOLIC ACID 1 MG TABLET PO SCH (09:00)
[2018-12-06] MEDS: MIDODRINE 5 MG TABLET PO SCH ×3 (09:00→21:32)
[2018-12-06] MEDS: LACTULOSE 10 GM/15 ML UDC PO SCH ×2 (09:00→21:32)
[2018-12-06] MEDS: SENNA/DOCUSATE TABLET PO SCH (09:00)
[2018-12-06] MEDS: PANTOPROZOLE 40MG TABLET PO SCH ×2 (09:00→21:32)
[2018-12-06 13:51] VITALS: BP 103/48
[2018-12-06] MEDS: INSULIN GLARGINE 100 UNITS/ML, PEN SQ-INSULIN SCH (21:25)
[2018-12-06] MEDS: TEMAZEPAM 15 MG CAPSULE PO PRN (21:32)
[2018-12-06 21:33] VITALS: BP 102/57
[2018-12-07 01:45] VITALS: BP 107/61
[2018-12-07] MEDS: AMPICILLIN 2 GM in SODIUM CHLORIDE 0.9% 100 ML IV SCH ×2 (02:30→15:36)
[2018-12-07 06:32] LABS: CHLORIDE 106 mmol/L (98-107)
[2018-12-07 06:51] LABS: ALANINE AMINOTRANSFERASE 9 U/L (12-78); ALBUMIN 1.9 g/dL (3.4-5.0); ALKALINE PHOSPHATASE 107 U/L (45-117); ANION GAP 9 mmol/L (5-15); BILIRUBIN,TOTAL 1.2 mg/dL (0.2-1.0); CALCIUM 8.2 mg/dL (8.5-10.1); CREATININE 6.55 mg/dL (0.7-1.3); TOTAL PROTEIN 4.9 g/dL (6.4-8.2)
[2018-12-07] MEDS: INSULIN LISPRO 100 UNITS/ML, PEN SQ-INSULIN SCH ×4 (07:00→21:00)
[2018-12-07 07:28] LABS: MEAN CORPUSCULAR HEMOGLOBIN 35.5 pg (27.5-34.5); MEAN CORPUSCULAR HGB CONC 34.6 g/dL (33.2-36.2); MEAN CORPUSCULAR VOLUME 102.6 fL (81-97); RED BLOOD COUNT 2.07 x10^6/uL (4.38-5.82)
[2018-12-07 07:33] LABS: PLATELET COUNT 42 x10^3/uL (130-400)
[2018-12-07 07:34] LABS: BASOPHILS # (AUTO) 0.03 x10^3/uL (0-0.1); BASOPHILS % (AUTO) 1 % (0-1); EOSINOPHILS # (AUTO) 0.07 x10^3/uL (0-0.4); EOSINOPHILS % (AUTO) 2 % (1-7); HCT (SEDRATE) 21.2 % (39.2-51.8); LYMPHOCYTES # (AUTO) 0.85 x10^3/uL (1-3.4); LYMPHOCYTES % (AUTO) 26 % (22-44); MD SCAN; MONOCYTES # (AUTO) 0.34 x10^3/uL (0.2-0.8); MONOCYTES % (AUTO) 10 % (2-9); NEUTROPHILS # (AUTO) 2.04 x10^3/uL (1.8-6.8); NEUTROPHILS % (AUTO) 61 % (42-75)
[2018-12-07 07:35] VITALS: BP 103/63
[2018-12-07] MEDS: TEMPLATE NON-FORMULARY MED. (Lanthanum Carbonate** (Fosrenol**) 1,000 MG) HOMEMEDPO SCH ×3 (08:00→17:00)
[2018-12-07] MEDS: LACTULOSE 10 GM/15 ML UDC PO SCH ×2 (09:00→22:04)
[2018-12-07] MEDS: FOLIC ACID 1 MG TABLET PO SCH (09:00)
[2018-12-07] MEDS: CEFTRIAXONE PMX 2GM/50ML 50 ML IV SCH (09:00)
[2018-12-07] MEDS: MIDODRINE 5 MG TABLET PO SCH ×3 (09:00→22:05)
[2018-12-07] MEDS: FLUDROCORTISONE 0.1 MG TABLET PO SCH (09:00)
[2018-12-07] MEDS: SENNA/DOCUSATE TABLET PO SCH (09:00)
[2018-12-07] MEDS: RIFAXIMIN 550 MG TABLET PO SCH ×2 (09:00→22:05)
[2018-12-07] MEDS: PANTOPROZOLE 40MG TABLET PO SCH ×2 (09:00→22:05)
[2018-12-07 14:00] VITALS: BP 93/59
[2018-12-07 19:44] VITALS: BP 105/57
[2018-12-07] MEDS: INSULIN GLARGINE 100 UNITS/ML, PEN SQ-INSULIN SCH (22:05)
[2018-12-08 01:54] VITALS: BP 89/49
[2018-12-08] MEDS: AMPICILLIN 2 GM in SODIUM CHLORIDE 0.9% 100 ML IV SCH ×2 (02:55→15:45)
[2018-12-08] MEDS: INSULIN LISPRO 100 UNITS/ML, PEN SQ-INSULIN SCH ×4 (07:00→20:32)
[2018-12-08 07:38] VITALS: BP 94/38
[2018-12-08] MEDS: SENNA/DOCUSATE TABLET PO SCH (07:50)
[2018-12-08] MEDS: LACTULOSE 10 GM/15 ML UDC PO SCH ×2 (07:58→20:31)
[2018-12-08] MEDS: PANTOPROZOLE 40MG TABLET PO SCH ×2 (07:58→20:32)
[2018-12-08] MEDS: FOLIC ACID 1 MG TABLET PO SCH (07:58)
[2018-12-08] MEDS: RIFAXIMIN 550 MG TABLET PO SCH ×2 (07:59→20:32)
[2018-12-08] MEDS: FLUDROCORTISONE 0.1 MG TABLET PO SCH (07:59)
[2018-12-08] MEDS: MIDODRINE 5 MG TABLET PO SCH ×3 (07:59→20:32)
[2018-12-08] MEDS: TEMPLATE NON-FORMULARY MED. (Lanthanum Carbonate** (Fosrenol**) 1,000 MG) HOMEMEDPO SCH ×3 (08:00→17:00)
[2018-12-08] MEDS: CEFTRIAXONE PMX 2GM/50ML 50 ML IV SCH (08:36)
[2018-12-08 12:52] VITALS: BP 100/62
[2018-12-08 20:28] VITALS: BP 95/45
[2018-12-08] MEDS: INSULIN GLARGINE 100 UNITS/ML, PEN SQ-INSULIN SCH (20:32)
[2018-12-09] MEDS: AMPICILLIN 2 GM in SODIUM CHLORIDE 0.9% 100 ML IV SCH ×2 (02:37→15:35)
[2018-12-09 02:38] VITALS: BP 103/56
[2018-12-09 05:59] LABS: ALANINE AMINOTRANSFERASE 18 U/L (12-78); ALBUMIN 1.8 g/dL (3.4-5.0); ANION GAP 8 mmol/L (5-15); CHLORIDE 105 mmol/L (98-107)
[2018-12-09 06:02] LABS: ALKALINE PHOSPHATASE 121 U/L (45-117); BILIRUBIN,TOTAL 0.9 mg/dL (0.2-1.0); TOTAL PROTEIN 4.8 g/dL (6.4-8.2)
[2018-12-09 06:55] LABS: BASOPHILS # (AUTO) 0.03 x10^3/uL (0-0.1); BASOPHILS % (AUTO) 1 % (0-1); EOSINOPHILS # (AUTO) 0.05 x10^3/uL (0-0.4); EOSINOPHILS % (AUTO) 1 % (1-7); LYMPHOCYTES # (AUTO) 0.92 x10^3/uL (1-3.4); LYMPHOCYTES % (AUTO) 25 % (22-44); MD SCAN; MEAN CORPUSCULAR HEMOGLOBIN 35.7 pg (27.5-34.5); MEAN CORPUSCULAR HGB CONC 34.3 g/dL (33.2-36.2); MEAN CORPUSCULAR VOLUME 104.3 fL (81-97); MEAN PLATELET VOLUME 9.8 fL (7.4-10.4); MONOCYTES # (AUTO) 0.33 x10^3/uL (0.2-0.8); MONOCYTES % (AUTO) 9 % (2-9); NEUTROPHILS # (AUTO) 2.37 x10^3/uL (1.8-6.8); NEUTROPHILS % (AUTO) 64 % (42-75); RED BLOOD COUNT 2.04 x10^6/uL (4.38-5.82); RED CELL DISTRIBUTION WIDTH 28.5 % (9.4-14.8)
[2018-12-09 06:57] LABS: PLATELET COUNT 48 x10^3/uL (130-400)
[2018-12-09] MEDS: INSULIN LISPRO 100 UNITS/ML, PEN SQ-INSULIN SCH ×4 (07:00→20:29)
[2018-12-09 07:54] VITALS: BP 104/62
[2018-12-09] MEDS: ALBUMIN HUMAN 25% 100 ML IV PRN (07:56)
[2018-12-09] MEDS: TEMPLATE NON-FORMULARY MED. (Lanthanum Carbonate** (Fosrenol**) 1,000 MG) HOMEMEDPO SCH ×3 (08:00→17:00)
[2018-12-09] MEDS: SENNA/DOCUSATE TABLET PO SCH (09:00)
[2018-12-09] MEDS: CEFTRIAXONE PMX 2GM/50ML 50 ML IV SCH (09:49)
[2018-12-09] MEDS: MIDODRINE 5 MG TABLET PO SCH ×3 (09:50→20:46)
[2018-12-09] MEDS: RIFAXIMIN 550 MG TABLET PO SCH ×2 (12:11→20:46)
[2018-12-09] MEDS: PANTOPROZOLE 40MG TABLET PO SCH ×2 (12:11→20:46)
[2018-12-09] MEDS: FOLIC ACID 1 MG TABLET PO SCH (12:11)
[2018-12-09] MEDS: LACTULOSE 10 GM/15 ML UDC PO SCH ×2 (12:11→20:46)
[2018-12-09] MEDS: FLUDROCORTISONE 0.1 MG TABLET PO SCH (12:11)
[2018-12-09 13:46] VITALS: BP 109/57
[2018-12-09 20:41] VITALS: BP 133/71
[2018-12-09] MEDS: INSULIN GLARGINE 100 UNITS/ML, PEN SQ-INSULIN SCH (20:47)
[2018-12-10] VITALS (14 sets, daily range): BP systolic 85–113; BP diastolic 44–64
[2018-12-10] MEDS: TEMAZEPAM 15 MG CAPSULE PO PRN (01:20)
[2018-12-10] MEDS: AMPICILLIN 2 GM in SODIUM CHLORIDE 0.9% 100 ML IV SCH ×2 (03:19→15:45)
[2018-12-10 05:17] LABS: MEAN CORPUSCULAR HEMOGLOBIN 35.9 pg (27.5-34.5); MEAN CORPUSCULAR HGB CONC 34.7 g/dL (33.2-36.2); MEAN CORPUSCULAR VOLUME 103.3 fL (81-97); RED BLOOD COUNT 1.78 x10^6/uL (4.38-5.82); RED CELL DISTRIBUTION WIDTH 28.2 % (9.4-14.8)
[2018-12-10 05:27] LABS: ALBUMIN 1.9 g/dL (3.4-5.0); ANION GAP 8 mmol/L (5-15); CHLORIDE 105 mmol/L (98-107)
[2018-12-10 05:31] LABS: ALANINE AMINOTRANSFERASE 9 U/L (12-78); ALKALINE PHOSPHATASE 97 U/L (45-117); BILIRUBIN,TOTAL 1.1 mg/dL (0.2-1.0); CREATININE 4.62 mg/dL (0.7-1.3); TOTAL PROTEIN 4.5 g/dL (6.4-8.2)
[2018-12-10 05:54] LABS: BASOPHILS # (AUTO) 0.01 x10^3/uL (0-0.1); BASOPHILS % (AUTO) 0 % (0-1); EOSINOPHILS % (AUTO) 0 % (1-7); LYMPHOCYTES # (AUTO) 0.67 x10^3/uL (1-3.4); LYMPHOCYTES % (AUTO) 28 % (22-44); MD SCAN; MEAN PLATELET VOLUME 8.5 fL (7.4-10.4); MONOCYTES # (AUTO) 0.24 x10^3/uL (0.2-0.8); MONOCYTES % (AUTO) 10 % (2-9); NEUTROPHILS # (AUTO) 1.51 x10^3/uL (1.8-6.8); NEUTROPHILS % (AUTO) 62 % (42-75)
[2018-12-10 05:56] LABS: PLATELET COUNT 31 x10^3/uL (130-400)
[2018-12-10] MEDS: INSULIN LISPRO 100 UNITS/ML, PEN SQ-INSULIN SCH ×4 (07:00→21:00)
[2018-12-10] MEDS: PANTOPROZOLE 40MG TABLET PO SCH ×2 (08:43→21:23)
[2018-12-10] MEDS: FOLIC ACID 1 MG TABLET PO SCH (08:43)
[2018-12-10] MEDS: SENNA/DOCUSATE TABLET PO SCH (08:44)
[2018-12-10] MEDS: FLUDROCORTISONE 0.1 MG TABLET PO SCH (08:44)
[2018-12-10] MEDS: MIDODRINE 5 MG TABLET PO SCH ×3 (08:44→21:23)
[2018-12-10] MEDS: TEMPLATE NON-FORMULARY MED. (Lanthanum Carbonate** (Fosrenol**) 1,000 MG) HOMEMEDPO SCH ×3 (08:44→16:23)
[2018-12-10] MEDS: CEFTRIAXONE PMX 2GM/50ML 50 ML IV SCH (08:44)
[2018-12-10] MEDS: LACTULOSE 10 GM/15 ML UDC PO SCH ×2 (08:44→21:23)
[2018-12-10] MEDS: RIFAXIMIN 550 MG TABLET PO SCH ×2 (08:44→21:23)
[2018-12-10] MEDS: INSULIN GLARGINE 100 UNITS/ML, PEN SQ-INSULIN SCH (21:24)
[2018-12-11 03:05] VITALS: BP 113/65
[2018-12-11] MEDS: AMPICILLIN 2 GM in SODIUM CHLORIDE 0.9% 100 ML IV SCH ×2 (03:34→17:14)
[2018-12-11] MEDS: INSULIN LISPRO 100 UNITS/ML, PEN SQ-INSULIN SCH ×4 (07:00→21:51)
[2018-12-11 07:58] VITALS: BP 109/57
[2018-12-11] MEDS: TEMPLATE NON-FORMULARY MED. (Lanthanum Carbonate** (Fosrenol**) 1,000 MG) HOMEMEDPO SCH ×3 (08:00→17:00)
[2018-12-11] MEDS: SENNA/DOCUSATE TABLET PO SCH (08:30)
[2018-12-11] MEDS: CEFTRIAXONE PMX 2GM/50ML 50 ML IV SCH (08:47)
[2018-12-11] MEDS: MIDODRINE 5 MG TABLET PO SCH ×3 (08:47→21:50)
[2018-12-11 09:23] LABS: ALANINE AMINOTRANSFERASE 11 U/L (12-78); ALBUMIN 1.9 g/dL (3.4-5.0); ANION GAP 11 mmol/L (5-15); CALCIUM 7.6 mg/dL (8.5-10.1); CHLORIDE 102 mmol/L (98-107); CREATININE 5.85 mg/dL (0.7-1.3)
[2018-12-11 09:26] LABS: ALKALINE PHOSPHATASE 119 U/L (45-117); BILIRUBIN,TOTAL 1.3 mg/dL (0.2-1.0)
[2018-12-11 09:56] LABS: MEAN CORPUSCULAR HEMOGLOBIN 33.8 pg (27.5-34.5); MEAN CORPUSCULAR HGB CONC 33.7 g/dL (33.2-36.2); MEAN CORPUSCULAR VOLUME 100.2 fL (81-97); MEAN PLATELET VOLUME 9.4 fL (7.4-10.4); RED BLOOD COUNT 2.45 x10^6/uL (4.38-5.82); RED CELL DISTRIBUTION WIDTH 28.4 % (9.4-14.8)
[2018-12-11 09:57] LABS: BASOPHILS # (AUTO) 0.03 x10^3/uL (0-0.1); BASOPHILS % (AUTO) 1 % (0-1); EOSINOPHILS % (AUTO) 0 % (1-7); LYMPHOCYTES # (AUTO) 1.09 x10^3/uL (1-3.4); LYMPHOCYTES % (AUTO) 23 % (22-44); MD SCAN; MONOCYTES # (AUTO) 0.42 x10^3/uL (0.2-0.8); MONOCYTES % (AUTO) 9 % (2-9); NEUTROPHILS # (AUTO) 3.17 x10^3/uL (1.8-6.8); NEUTROPHILS % (AUTO) 67 % (42-75)
[2018-12-11 09:59] LABS: PLATELET COUNT 48 x10^3/uL (130-400)
[2018-12-11] MEDS: FLUDROCORTISONE 0.1 MG TABLET PO SCH (13:13)
[2018-12-11] MEDS: RIFAXIMIN 550 MG TABLET PO SCH ×2 (13:14→21:50)
[2018-12-11] MEDS: PANTOPROZOLE 40MG TABLET PO SCH ×2 (13:14→21:50)
[2018-12-11] MEDS: LACTULOSE 10 GM/15 ML UDC PO SCH ×2 (13:14→21:50)
[2018-12-11] MEDS: FOLIC ACID 1 MG TABLET PO SCH (13:14)
[2018-12-11 13:37] VITALS: BP 105/54
[2018-12-11 19:33] VITALS: BP 113/57
[2018-12-11] MEDS: TEMAZEPAM 15 MG CAPSULE PO PRN (21:51)
[2018-12-11] MEDS: INSULIN GLARGINE 100 UNITS/ML, PEN SQ-INSULIN SCH (21:51)
[2018-12-11] MEDS ORDERED: ARANESP 200 MCG/ML **ESRD SQ SCH (21:51)
[2018-12-11] MEDS: ARANESP 200 MCG/ML **ESRD SQ SCH (22:23)
[2018-12-12 02:04] VITALS: BP 101/54
[2018-12-12] MEDS: AMPICILLIN 2 GM in SODIUM CHLORIDE 0.9% 100 ML IV SCH ×2 (04:39→17:41)
[2018-12-12 05:18] LABS: CHLORIDE 105 mmol/L (98-107)
[2018-12-12 05:25] LABS: ANION GAP 8 mmol/L (5-15); CALCIUM 7.9 mg/dL (8.5-10.1); CREATININE 4.42 mg/dL (0.7-1.3)
[2018-12-12] MEDS: INSULIN LISPRO 100 UNITS/ML, PEN SQ-INSULIN SCH ×4 (07:00→20:26)
[2018-12-12] MEDS: TEMPLATE NON-FORMULARY MED. (Lanthanum Carbonate** (Fosrenol**) 1,000 MG) HOMEMEDPO SCH ×3 (08:00→17:42)
[2018-12-12 08:09] VITALS: BP 91/49
[2018-12-12] MEDS: SENNA/DOCUSATE TABLET PO SCH (09:00)
[2018-12-12] MEDS: RIFAXIMIN 550 MG TABLET PO SCH ×2 (10:43→20:26)
[2018-12-12] MEDS: CEFTRIAXONE PMX 2GM/50ML 50 ML IV SCH (10:44)
[2018-12-12] MEDS: FOLIC ACID 1 MG TABLET PO SCH (10:44)
[2018-12-12] MEDS: MIDODRINE 5 MG TABLET PO SCH ×3 (10:44→20:26)
[2018-12-12] MEDS: FLUDROCORTISONE 0.1 MG TABLET PO SCH (10:44)
[2018-12-12] MEDS: LACTULOSE 10 GM/15 ML UDC PO SCH ×2 (10:44→20:25)
[2018-12-12] MEDS: PANTOPROZOLE 40MG TABLET PO SCH ×2 (10:45→20:26)
[2018-12-12 13:17] VITALS: BP 110/63
[2018-12-12 14:23] VITALS: BP 88/47
[2018-12-12 19:30] VITALS: BP 95/51
[2018-12-12] MEDS: INSULIN GLARGINE 100 UNITS/ML, PEN SQ-INSULIN SCH (20:26)
[2018-12-12] MEDS: TEMAZEPAM 15 MG CAPSULE PO PRN (22:32)
[2018-12-13 01:36] VITALS: BP 99/53
[2018-12-13] MEDS: AMPICILLIN 2 GM in SODIUM CHLORIDE 0.9% 100 ML IV SCH ×2 (04:49→18:07)
[2018-12-13] MEDS: INSULIN LISPRO 100 UNITS/ML, PEN SQ-INSULIN SCH ×4 (07:00→21:00)
[2018-12-13] MEDS: TEMPLATE NON-FORMULARY MED. (Lanthanum Carbonate** (Fosrenol**) 1,000 MG) HOMEMEDPO SCH ×3 (08:00→17:00)
[2018-12-13 08:12] VITALS: BP 110/62
[2018-12-13] MEDS: FLUDROCORTISONE 0.1 MG TABLET PO SCH (08:50)
[2018-12-13] MEDS: RIFAXIMIN 550 MG TABLET PO SCH ×2 (08:50→21:24)
[2018-12-13] MEDS: SENNA/DOCUSATE TABLET PO SCH (08:50)
[2018-12-13] MEDS: PANTOPROZOLE 40MG TABLET PO SCH ×2 (08:50→21:24)
[2018-12-13] MEDS: FOLIC ACID 1 MG TABLET PO SCH (08:50)
[2018-12-13] MEDS: LACTULOSE 10 GM/15 ML UDC PO SCH ×2 (08:50→21:22)
[2018-12-13] MEDS: CEFTRIAXONE PMX 2GM/50ML 50 ML IV SCH (08:50)
[2018-12-13] MEDS: MIDODRINE 5 MG TABLET PO SCH ×3 (09:00→21:23)
[2018-12-13 13:34] VITALS: BP 104/59
[2018-12-13 19:39] VITALS: BP 94/57
[2018-12-13] MEDS: INSULIN GLARGINE 100 UNITS/ML, PEN SQ-INSULIN SCH (21:25)
[2018-12-14 02:56] VITALS: BP 106/57
[2018-12-14] MEDS: AMPICILLIN 2 GM in SODIUM CHLORIDE 0.9% 100 ML IV SCH ×2 (04:40→16:30)
[2018-12-14] MEDS: INSULIN LISPRO 100 UNITS/ML, PEN SQ-INSULIN SCH ×4 (07:00→20:23)
[2018-12-14 08:00] VITALS: BP 97/61
[2018-12-14] MEDS: TEMPLATE NON-FORMULARY MED. (Lanthanum Carbonate** (Fosrenol**) 1,000 MG) HOMEMEDPO SCH ×3 (08:00→17:00)
[2018-12-14] MEDS: MIDODRINE 5 MG TABLET PO SCH ×3 (08:19→21:00)
[2018-12-14] MEDS: SENNA/DOCUSATE TABLET PO SCH (09:00)
[2018-12-14] MEDS: CEFTRIAXONE PMX 2GM/50ML 50 ML IV SCH (09:15)
[2018-12-14 12:09] LABS: MEAN CORPUSCULAR HGB CONC 33.5 g/dL (33.2-36.2); MEAN CORPUSCULAR VOLUME 101.5 fL (81-97); RED BLOOD COUNT 2.28 x10^6/uL (4.38-5.82); RED CELL DISTRIBUTION WIDTH 28.7 % (9.4-14.8)
[2018-12-14 12:10] LABS: PLATELET COUNT 35 x10^3/uL (130-400)
[2018-12-14 12:11] LABS: BASOPHILS # (AUTO) 0.05 x10^3/uL (0-0.1); BASOPHILS % (AUTO) 2 % (0-1); EOSINOPHILS # (AUTO) 0.01 x10^3/uL (0-0.4); EOSINOPHILS % (AUTO) 0 % (1-7); LYMPHOCYTES % (AUTO) 19 % (22-44); MD SCAN; MONOCYTES # (AUTO) 0.29 x10^3/uL (0.2-0.8); MONOCYTES % (AUTO) 9 % (2-9); NEUTROPHILS # (AUTO) 2.19 x10^3/uL (1.8-6.8); NEUTROPHILS % (AUTO) 70 % (42-75)
[2018-12-14 12:19] LABS: ALBUMIN 1.9 g/dL (3.4-5.0); ANION GAP 6 mmol/L (5-15); CALCIUM 7.8 mg/dL (8.5-10.1); CHLORIDE 107 mmol/L (98-107)
[2018-12-14 12:27] LABS: HCT (SEDRATE) 23.1 % (39.2-51.8)
[2018-12-14 12:29] LABS: ALANINE AMINOTRANSFERASE 9 U/L (12-78); ALKALINE PHOSPHATASE 101 U/L (45-117); BILIRUBIN,TOTAL 1.7 mg/dL (0.2-1.0); CREATININE 3.65 mg/dL (0.7-1.3); TOTAL PROTEIN 4.8 g/dL (6.4-8.2)
[2018-12-14] MEDS: FOLIC ACID 1 MG TABLET PO SCH (12:31)
[2018-12-14] MEDS: RIFAXIMIN 550 MG TABLET PO SCH ×2 (12:32→21:00)
[2018-12-14] MEDS: LACTULOSE 10 GM/15 ML UDC PO SCH ×2 (12:32→20:53)
[2018-12-14] MEDS: FLUDROCORTISONE 0.1 MG TABLET PO SCH (12:32)
[2018-12-14] MEDS: PANTOPROZOLE 40MG TABLET PO SCH ×2 (12:33→20:54)
[2018-12-14 14:00] VITALS: BP 99/59
[2018-12-14 19:52] VITALS: BP 102/61
[2018-12-14] MEDS: INSULIN GLARGINE 100 UNITS/ML, PEN SQ-INSULIN SCH (20:55)
[2018-12-14] MEDS: TEMAZEPAM 15 MG CAPSULE PO PRN (23:40)
[2018-12-15 00:06] VITALS: BP 105/57
[2018-12-15] MEDS: AMPICILLIN 2 GM in SODIUM CHLORIDE 0.9% 100 ML IV SCH ×2 (04:30→16:40)
[2018-12-15] MEDS: INSULIN LISPRO 100 UNITS/ML, PEN SQ-INSULIN SCH ×4 (07:00→20:54)
[2018-12-15 08:16] VITALS: BP 100/60
[2018-12-15] MEDS: CEFTRIAXONE PMX 2GM/50ML 50 ML IV SCH (09:07)
[2018-12-15] MEDS: TEMPLATE NON-FORMULARY MED. (Lanthanum Carbonate** (Fosrenol**) 1,000 MG) HOMEMEDPO SCH ×3 (09:07→16:40)
[2018-12-15] MEDS: FLUDROCORTISONE 0.1 MG TABLET PO SCH (09:07)
[2018-12-15] MEDS: FOLIC ACID 1 MG TABLET PO SCH (09:07)
[2018-12-15] MEDS: LACTULOSE 10 GM/15 ML UDC PO SCH ×2 (09:07→20:53)
[2018-12-15] MEDS: RIFAXIMIN 550 MG TABLET PO SCH ×2 (09:08→20:54)
[2018-12-15] MEDS: MIDODRINE 5 MG TABLET PO SCH ×3 (09:08→20:53)
[2018-12-15] MEDS: SENNA/DOCUSATE TABLET PO SCH (09:08)
[2018-12-15] MEDS: PANTOPROZOLE 40MG TABLET PO SCH ×2 (09:08→20:54)
[2018-12-15 13:25] VITALS: BP 104/60
[2018-12-15 20:45] VITALS: BP 102/61
[2018-12-15] MEDS: INSULIN GLARGINE 100 UNITS/ML, PEN SQ-INSULIN SCH (20:54)
[2018-12-16 02:58] VITALS: BP 99/57
[2018-12-16] MEDS: AMPICILLIN 2 GM in SODIUM CHLORIDE 0.9% 100 ML IV SCH ×2 (03:50→16:30)
[2018-12-16] MEDS: INSULIN LISPRO 100 UNITS/ML, PEN SQ-INSULIN SCH ×4 (07:00→21:02)
[2018-12-16 07:24] VITALS: BP 102/59
[2018-12-16] MEDS: TEMPLATE NON-FORMULARY MED. (Lanthanum Carbonate** (Fosrenol**) 1,000 MG) HOMEMEDPO SCH ×3 (08:00→17:00)
[2018-12-16] MEDS: CEFTRIAXONE PMX 2GM/50ML 50 ML IV SCH (08:57)
[2018-12-16] MEDS: MIDODRINE 5 MG TABLET PO SCH ×3 (08:59→21:02)
[2018-12-16] MEDS: SENNA/DOCUSATE TABLET PO SCH (09:00)
[2018-12-16 09:43] LABS: ALBUMIN 1.7 g/dL (3.4-5.0); ANION GAP 7 mmol/L (5-15); CALCIUM 8.3 mg/dL (8.5-10.1); CHLORIDE 106 mmol/L (98-107); CREATININE 6.22 mg/dL (0.7-1.3)
[2018-12-16 13:19] VITALS: BP 109/63
[2018-12-16] MEDS: PANTOPROZOLE 40MG TABLET PO SCH ×2 (14:00→21:02)
[2018-12-16] MEDS: FLUDROCORTISONE 0.1 MG TABLET PO SCH (14:00)
[2018-12-16] MEDS: FOLIC ACID 1 MG TABLET PO SCH (14:00)
[2018-12-16] MEDS: LACTULOSE 10 GM/15 ML UDC PO SCH ×2 (14:00→21:02)
[2018-12-16] MEDS: RIFAXIMIN 550 MG TABLET PO SCH ×2 (14:00→21:02)
[2018-12-16 18:53] VITALS: BP 87/54
[2018-12-16] MEDS: INSULIN GLARGINE 100 UNITS/ML, PEN SQ-INSULIN SCH (21:03)
[2018-12-17] VITALS: BP 91/53
[2018-12-17] MEDS: AMPICILLIN 2 GM in SODIUM CHLORIDE 0.9% 100 ML IV SCH ×2 (04:22→16:30)
[2018-12-17] MEDS: INSULIN LISPRO 100 UNITS/ML, PEN SQ-INSULIN SCH ×4 (07:00→21:00)
[2018-12-17] MEDS: TEMPLATE NON-FORMULARY MED. (Lanthanum Carbonate** (Fosrenol**) 1,000 MG) HOMEMEDPO SCH ×3 (08:00→17:00)
[2018-12-17] MEDS: PANTOPROZOLE 40MG TABLET PO SCH ×2 (09:00→21:00)
[2018-12-17] MEDS: FOLIC ACID 1 MG TABLET PO SCH (09:00)
[2018-12-17] MEDS: LACTULOSE 10 GM/15 ML UDC PO SCH ×2 (09:00→21:00)
[2018-12-17] MEDS: RIFAXIMIN 550 MG TABLET PO SCH ×2 (09:00→21:00)
[2018-12-17] MEDS: CEFTRIAXONE PMX 2GM/50ML 50 ML IV SCH (09:00)
[2018-12-17] MEDS: FLUDROCORTISONE 0.1 MG TABLET PO SCH (09:00)
[2018-12-17] MEDS: SENNA/DOCUSATE TABLET PO SCH (09:00)
[2018-12-17] MEDS: MIDODRINE 5 MG TABLET PO SCH ×3 (09:00→21:00)
[2018-12-17 09:01] VITALS: BP 84/49
[2018-12-17 15:59] VITALS: BP 83/51
[2018-12-17 20:00] VITALS: BP 91/57
[2018-12-17] MEDS: INSULIN GLARGINE 100 UNITS/ML, PEN SQ-INSULIN SCH (21:00)
[2018-12-17] MEDS: TRIAMCINOLONE CRM 0.1%, 15GM TP SCH (21:00)
[2018-12-18] VITALS (8 sets, daily range): BP systolic 89–114; BP diastolic 52–70
[2018-12-18] MEDS: AMPICILLIN 2 GM in SODIUM CHLORIDE 0.9% 100 ML IV SCH ×2 (04:30→20:36)
[2018-12-18] MEDS: INSULIN LISPRO 100 UNITS/ML, PEN SQ-INSULIN SCH ×4 (07:00→20:38)
[2018-12-18] MEDS: TEMPLATE NON-FORMULARY MED. (Lanthanum Carbonate** (Fosrenol**) 1,000 MG) HOMEMEDPO SCH ×3 (08:00→17:00)
[2018-12-18] MEDS: ALBUMIN HUMAN 25% 100 ML IV PRN ×2 (08:30→09:24)
[2018-12-18] MEDS: TRIAMCINOLONE CRM 0.1%, 15GM TP SCH ×2 (09:00→20:39)
[2018-12-18] MEDS: CEFTRIAXONE PMX 2GM/50ML 50 ML IV SCH (09:00)
[2018-12-18] MEDS: SENNA/DOCUSATE TABLET PO SCH (09:00)
[2018-12-18] MEDS: MIDODRINE 5 MG TABLET PO SCH ×3 (09:00→20:38)
[2018-12-18] MEDS ORDERED: MORPHINE SULFATE 4 MG/ML, 1ML ONE (10:16)
[2018-12-18] MEDS: morphine SULFATE 10 MG/ML, 1ML IVPush PRN ×2 (10:20→10:42)
[2018-12-18] MEDS ORDERED: METOPROLOL 1 MG/ML, 5ML ONE (10:31)
[2018-12-18] MEDS ORDERED: ADENOSINE 6 MG/2 ML IVPush ONE ×2 (11:00)
[2018-12-18 11:39] LABS: MEAN CORPUSCULAR HEMOGLOBIN 35.6 pg (27.5-34.5); MEAN CORPUSCULAR HGB CONC 34.2 g/dL (33.2-36.2); MEAN PLATELET VOLUME 8.8 fL (7.4-10.4); RED BLOOD COUNT 1.95 x10^6/uL (4.38-5.82); RED CELL DISTRIBUTION WIDTH 28.8 % (9.4-14.8)
[2018-12-18 11:40] LABS: PLATELET COUNT 28 x10^3/uL (130-400)
[2018-12-18 11:42] LABS: BASOPHILS # (AUTO) 0.01 x10^3/uL (0-0.1); BASOPHILS % (AUTO) 1 % (0-1); EOSINOPHILS # (AUTO) 0.02 x10^3/uL (0-0.4); EOSINOPHILS % (AUTO) 2 % (1-7); LYMPHOCYTES # (AUTO) 0.58 x10^3/uL (1-3.4); LYMPHOCYTES % (AUTO) 38 % (22-44); MD SCAN; MONOCYTES # (AUTO) 0.14 x10^3/uL (0.2-0.8); MONOCYTES % (AUTO) 9 % (2-9); NEUTROPHILS # (AUTO) 0.79 x10^3/uL (1.8-6.8); NEUTROPHILS % (AUTO) 51 % (42-75)
[2018-12-18] MEDS: FLUDROCORTISONE 0.1 MG TABLET PO SCH (12:52)
[2018-12-18] MEDS: LACTULOSE 10 GM/15 ML UDC PO SCH ×2 (12:52→20:37)
[2018-12-18] MEDS: FOLIC ACID 1 MG TABLET PO SCH (12:53)
[2018-12-18] MEDS: RIFAXIMIN 550 MG TABLET PO SCH ×2 (12:53→20:38)
[2018-12-18] MEDS: PANTOPROZOLE 40MG TABLET PO SCH ×2 (12:53→20:38)
[2018-12-18] MEDS: INSULIN GLARGINE 100 UNITS/ML, PEN SQ-INSULIN SCH (20:47)
[2018-12-18] MEDS: ARANESP 200 MCG/ML **ESRD SQ SCH (23:27)
[2018-12-19 02:09] VITALS: BP 97/62
[2018-12-19 06:55] VITALS: BP 111/71
[2018-12-19] MEDS: INSULIN LISPRO 100 UNITS/ML, PEN SQ-INSULIN SCH ×4 (07:00→21:00)
[2018-12-19] MEDS: TEMPLATE NON-FORMULARY MED. (Lanthanum Carbonate** (Fosrenol**) 1,000 MG) HOMEMEDPO SCH ×3 (08:00→17:00)
[2018-12-19] MEDS: SENNA/DOCUSATE TABLET PO SCH (09:00)
[2018-12-19] MEDS: AMPICILLIN 2 GM in SODIUM CHLORIDE 0.9% 100 ML IV SCH ×2 (10:36→23:29)
[2018-12-19] MEDS: FLUDROCORTISONE 0.1 MG TABLET PO SCH (10:37)
[2018-12-19] MEDS: LACTULOSE 10 GM/15 ML UDC PO SCH ×2 (10:37→21:00)
[2018-12-19] MEDS: FOLIC ACID 1 MG TABLET PO SCH (10:37)
[2018-12-19] MEDS: RIFAXIMIN 550 MG TABLET PO SCH ×2 (10:38→21:11)
[2018-12-19] MEDS: PANTOPROZOLE 40MG TABLET PO SCH ×2 (10:38→21:00)
[2018-12-19] MEDS: TRIAMCINOLONE CRM 0.1%, 15GM TP SCH ×2 (10:38→21:14)
[2018-12-19] MEDS: MIDODRINE 5 MG TABLET PO SCH ×3 (10:38→21:00)
[2018-12-19] MEDS: CEFTRIAXONE PMX 2GM/50ML 50 ML IV SCH (12:39)
[2018-12-19 13:07] VITALS: BP 113/69
[2018-12-19] MEDS: METOPROLOL SUCCINATE 25 MG TAB.ER.24H PO SCH (16:47)
[2018-12-19 16:48] VITALS: BP 89/46
[2018-12-19 19:55] VITALS: BP 101/62
[2018-12-19] MEDS: INSULIN GLARGINE 100 UNITS/ML, PEN SQ-INSULIN SCH (21:12)
[2018-12-20 03:55] VITALS: BP 96/57
[2018-12-20] MEDS: METOPROLOL SUCCINATE 25 MG TAB.ER.24H PO SCH (05:29)
[2018-12-20] MEDS: INSULIN LISPRO 100 UNITS/ML, PEN SQ-INSULIN SCH ×4 (07:00→21:27)
[2018-12-20] MEDS: SENNA/DOCUSATE TABLET PO SCH (07:09)
[2018-12-20 07:33] VITALS: BP 104/64
[2018-12-20] MEDS: TEMPLATE NON-FORMULARY MED. (Lanthanum Carbonate** (Fosrenol**) 1,000 MG) HOMEMEDPO SCH ×3 (08:16→17:00)
[2018-12-20] MEDS: AMPICILLIN 2 GM in SODIUM CHLORIDE 0.9% 100 ML IV SCH ×2 (08:24→21:26)
[2018-12-20] MEDS: TRIAMCINOLONE CRM 0.1%, 15GM TP SCH ×2 (08:26→21:39)
[2018-12-20] MEDS: MIDODRINE 5 MG TABLET PO SCH ×3 (08:26→21:26)
[2018-12-20] MEDS: LACTULOSE 10 GM/15 ML UDC PO SCH ×2 (08:26→21:26)
[2018-12-20] MEDS: FLUDROCORTISONE 0.1 MG TABLET PO SCH (08:26)
[2018-12-20] MEDS: RIFAXIMIN 550 MG TABLET PO SCH ×2 (08:27→21:27)
[2018-12-20] MEDS: FOLIC ACID 1 MG TABLET PO SCH (08:27)
[2018-12-20] MEDS: PANTOPROZOLE 40MG TABLET PO SCH ×2 (08:27→21:27)
[2018-12-20 11:09] LABS: MEAN CORPUSCULAR HEMOGLOBIN 35.3 pg (27.5-34.5); MEAN CORPUSCULAR HGB CONC 33.7 g/dL (33.2-36.2); MEAN CORPUSCULAR VOLUME 104.6 fL (81-97); MEAN PLATELET VOLUME 9.5 fL (7.4-10.4); RED BLOOD COUNT 2.06 x10^6/uL (4.38-5.82); RED CELL DISTRIBUTION WIDTH 28.9 % (9.4-14.8)
[2018-12-20 11:11] LABS: PLATELET COUNT 37 x10^3/uL (130-400)
[2018-12-20 11:33] LABS: BASOPHILS # (AUTO) 0.01 x10^3/uL (0-0.1); BASOPHILS % (AUTO) 0 % (0-1); EOSINOPHILS # (AUTO) 0.02 x10^3/uL (0-0.4); EOSINOPHILS % (AUTO) 0 % (1-7); LYMPHOCYTES # (AUTO) 0.72 x10^3/uL (1-3.4); LYMPHOCYTES % (AUTO) 20 % (22-44); MD MORPH REVIEW ONLY; MONOCYTES # (AUTO) 0.33 x10^3/uL (0.2-0.8); MONOCYTES % (AUTO) 9 % (2-9); NEUTROPHILS # (AUTO) 2.64 x10^3/uL (1.8-6.8); NEUTROPHILS % (AUTO) 71 % (42-75)
[2018-12-20 11:34] LABS: ANISOCYTOSIS 1+; POLYCHROMASIA 1+
[2018-12-20 11:38] LABS: OVALOCYTES 1+
[2018-12-20 11:39] LABS: <PLATELET ESTIMATE> DECREASED; LARGE PLATELETS 1+
[2018-12-20] MEDS: CEFTRIAXONE PMX 2GM/50ML 50 ML IV SCH (14:08)
[2018-12-20 15:55] VITALS: BP 90/52
[2018-12-20 20:00] VITALS: BP 110/56
[2018-12-20] MEDS: INSULIN GLARGINE 100 UNITS/ML, PEN SQ-INSULIN SCH (21:38)
[2018-12-21 04:42] VITALS: BP 104/54
[2018-12-21] MEDS: METOPROLOL SUCCINATE 25 MG TAB.ER.24H PO SCH (05:29)
[2018-12-21 05:36] LABS: ANION GAP 8 mmol/L (5-15); CHLORIDE 105 mmol/L (98-107)
[2018-12-21 05:41] LABS: ALANINE AMINOTRANSFERASE 9 U/L (12-78); ALKALINE PHOSPHATASE 106 U/L (45-117); CREATININE 6.61 mg/dL (0.7-1.3); TOTAL PROTEIN 4.8 g/dL (6.4-8.2)
[2018-12-21 06:54] VITALS: BP 90/51
[2018-12-21 06:56] LABS: MEAN CORPUSCULAR HEMOGLOBIN 35.8 pg (27.5-34.5); MEAN CORPUSCULAR VOLUME 105.1 fL (81-97); MEAN PLATELET VOLUME 9.5 fL (7.4-10.4); PLATELET COUNT 44 x10^3/uL (130-400); RED BLOOD COUNT 2.14 x10^6/uL (4.38-5.82); RED CELL DISTRIBUTION WIDTH 29.9 % (9.4-14.8)
[2018-12-21 07:00] LABS: BASOPHILS # (AUTO) 0.03 x10^3/uL (0-0.1); BASOPHILS % (AUTO) 1 % (0-1); EOSINOPHILS % (AUTO) 0 % (1-7); LYMPHOCYTES # (AUTO) 0.87 x10^3/uL (1-3.4); LYMPHOCYTES % (AUTO) 21 % (22-44); MD SCAN; MONOCYTES # (AUTO) 0.37 x10^3/uL (0.2-0.8); MONOCYTES % (AUTO) 9 % (2-9); NEUTROPHILS # (AUTO) 2.81 x10^3/uL (1.8-6.8); NEUTROPHILS % (AUTO) 69 % (42-75)
[2018-12-21] MEDS: INSULIN LISPRO 100 UNITS/ML, PEN SQ-INSULIN SCH ×4 (07:00→21:00)
[2018-12-21] MEDS: TEMPLATE NON-FORMULARY MED. (Lanthanum Carbonate** (Fosrenol**) 1,000 MG) HOMEMEDPO SCH ×3 (07:11→16:22)
[2018-12-21] MEDS: SENNA/DOCUSATE TABLET PO SCH (07:55)
[2018-12-21] MEDS: AMPICILLIN 2 GM in SODIUM CHLORIDE 0.9% 100 ML IV SCH (11:42)
[2018-12-21] MEDS: RIFAXIMIN 550 MG TABLET PO SCH ×2 (11:43→21:19)
[2018-12-21] MEDS: TRIAMCINOLONE CRM 0.1%, 15GM TP SCH ×2 (11:43→21:21)
[2018-12-21] MEDS: MIDODRINE 5 MG TABLET PO SCH ×3 (11:43→21:19)
[2018-12-21] MEDS: FLUDROCORTISONE 0.1 MG TABLET PO SCH (11:43)
[2018-12-21] MEDS: LACTULOSE 10 GM/15 ML UDC PO SCH ×2 (11:43→21:19)
[2018-12-21] MEDS: FOLIC ACID 1 MG TABLET PO SCH (11:44)
[2018-12-21] MEDS: PANTOPROZOLE 40MG TABLET PO SCH ×2 (11:44→21:19)
[2018-12-21 13:20] VITALS: BP 111/65
[2018-12-21] MEDS: CEFTRIAXONE PMX 2GM/50ML 50 ML IV SCH (14:24)
[2018-12-21 19:17] VITALS: BP 87/48
[2018-12-21] MEDS: INSULIN GLARGINE 100 UNITS/ML, PEN SQ-INSULIN SCH (21:00)
[2018-12-21 21:10] VITALS: BP 101/68
[2018-12-22] MEDS: AMPICILLIN 2 GM in SODIUM CHLORIDE 0.9% 100 ML IV SCH ×2 (00:14→13:12)
[2018-12-22 02:56] VITALS: BP 92/52
[2018-12-22] MEDS: METOPROLOL SUCCINATE 25 MG TAB.ER.24H PO SCH (05:25)
[2018-12-22 05:27] VITALS: BP 102/73
[2018-12-22 06:55] VITALS: BP 93/52
[2018-12-22] MEDS: INSULIN LISPRO 100 UNITS/ML, PEN SQ-INSULIN SCH ×4 (07:00→21:00)
[2018-12-22] MEDS: TEMPLATE NON-FORMULARY MED. (Lanthanum Carbonate** (Fosrenol**) 1,000 MG) HOMEMEDPO SCH ×3 (08:00→17:00)
[2018-12-22] MEDS: CEFTRIAXONE PMX 2GM/50ML 50 ML IV SCH (09:36)
[2018-12-22] MEDS: FLUDROCORTISONE 0.1 MG TABLET PO SCH (09:36)
[2018-12-22] MEDS: TRIAMCINOLONE CRM 0.1%, 15GM TP SCH ×2 (09:37→22:05)
[2018-12-22] MEDS: RIFAXIMIN 550 MG TABLET PO SCH ×2 (09:37→22:04)
[2018-12-22] MEDS: SENNA/DOCUSATE TABLET PO SCH (09:37)
[2018-12-22] MEDS: MIDODRINE 5 MG TABLET PO SCH ×3 (09:37→22:04)
[2018-12-22] MEDS: PANTOPROZOLE 40MG TABLET PO SCH ×2 (09:37→22:04)
[2018-12-22] MEDS: LACTULOSE 10 GM/15 ML UDC PO SCH ×2 (09:37→22:04)
[2018-12-22] MEDS: FOLIC ACID 1 MG TABLET PO SCH (09:37)
[2018-12-22 12:47] VITALS: BP 107/56
[2018-12-22 18:08] VITALS: BP 92/55
[2018-12-22 18:53] VITALS: BP 90/50
[2018-12-22] MEDS: INSULIN GLARGINE 100 UNITS/ML, PEN SQ-INSULIN SCH (22:07)
[2018-12-23] MEDS: AMPICILLIN 2 GM in SODIUM CHLORIDE 0.9% 100 ML IV SCH ×2 (01:16→13:30)
[2018-12-23 01:43] VITALS: BP 91/53
[2018-12-23 05:49] VITALS: BP 107/56
[2018-12-23] MEDS: METOPROLOL SUCCINATE 25 MG TAB.ER.24H PO SCH (05:50)
[2018-12-23] MEDS: INSULIN LISPRO 100 UNITS/ML, PEN SQ-INSULIN SCH ×4 (07:00→21:01)
[2018-12-23] MEDS: TEMPLATE NON-FORMULARY MED. (Lanthanum Carbonate** (Fosrenol**) 1,000 MG) HOMEMEDPO SCH ×3 (08:00→16:34)
[2018-12-23 08:15] VITALS: BP 87/31
[2018-12-23] MEDS: RIFAXIMIN 550 MG TABLET PO SCH ×2 (12:35→21:03)
[2018-12-23] MEDS: LACTULOSE 10 GM/15 ML UDC PO SCH ×2 (12:35→21:03)
[2018-12-23] MEDS: FOLIC ACID 1 MG TABLET PO SCH (12:35)
[2018-12-23] MEDS: SENNA/DOCUSATE TABLET PO SCH (12:35)
[2018-12-23] MEDS: PANTOPROZOLE 40MG TABLET PO SCH ×2 (12:36→21:03)
[2018-12-23] MEDS: MIDODRINE 5 MG TABLET PO SCH ×3 (12:36→21:03)
[2018-12-23] MEDS: FLUDROCORTISONE 0.1 MG TABLET PO SCH (12:36)
[2018-12-23] MEDS: TRIAMCINOLONE CRM 0.1%, 15GM TP SCH ×2 (12:37→21:04)
[2018-12-23] MEDS: CEFTRIAXONE PMX 2GM/50ML 50 ML IV SCH (12:37)
[2018-12-23 12:40] VITALS: BP 110/60
[2018-12-23 20:27] VITALS: BP 91/55
[2018-12-23] MEDS: INSULIN GLARGINE 100 UNITS/ML, PEN SQ-INSULIN SCH (21:02)
[2018-12-23] MEDS: TEMAZEPAM 15 MG CAPSULE PO PRN (22:36)
[2018-12-24] MEDS: AMPICILLIN 2 GM in SODIUM CHLORIDE 0.9% 100 ML IV SCH ×2 (01:15→13:13)
[2018-12-24 02:26] VITALS: BP 94/58
[2018-12-24 05:32] VITALS: BP 109/63
[2018-12-24] MEDS: METOPROLOL SUCCINATE 25 MG TAB.ER.24H PO SCH (05:34)
[2018-12-24] MEDS: INSULIN LISPRO 100 UNITS/ML, PEN SQ-INSULIN SCH ×4 (07:00→20:30)
[2018-12-24 07:23] VITALS: BP 112/65
[2018-12-24] MEDS: TEMPLATE NON-FORMULARY MED. (Lanthanum Carbonate** (Fosrenol**) 1,000 MG) HOMEMEDPO SCH ×3 (08:00→16:51)
[2018-12-24] MEDS: SENNA/DOCUSATE TABLET PO SCH (08:46)
[2018-12-24] MEDS: PANTOPROZOLE 40MG TABLET PO SCH ×2 (08:46→20:48)
[2018-12-24] MEDS: LACTULOSE 10 GM/15 ML UDC PO SCH ×2 (08:46→20:48)
[2018-12-24] MEDS: MIDODRINE 5 MG TABLET PO SCH ×3 (08:46→20:49)
[2018-12-24] MEDS: FLUDROCORTISONE 0.1 MG TABLET PO SCH (08:46)
[2018-12-24] MEDS: FOLIC ACID 1 MG TABLET PO SCH (08:47)
[2018-12-24] MEDS: CEFTRIAXONE PMX 2GM/50ML 50 ML IV SCH (08:47)
[2018-12-24] MEDS: RIFAXIMIN 550 MG TABLET PO SCH ×2 (08:47→20:48)
[2018-12-24] MEDS: TRIAMCINOLONE CRM 0.1%, 15GM TP SCH ×2 (10:40→20:49)
[2018-12-24 13:17] VITALS: BP 107/62
[2018-12-24 18:53] VITALS: BP 102/64
[2018-12-24] MEDS: INSULIN GLARGINE 100 UNITS/ML, PEN SQ-INSULIN SCH (20:48)
[2018-12-25] MEDS: AMPICILLIN 2 GM in SODIUM CHLORIDE 0.9% 100 ML IV SCH ×2 (01:03→14:19)
[2018-12-25 01:47] VITALS: BP 84/50
[2018-12-25 05:48] VITALS: BP 103/62
[2018-12-25] MEDS: METOPROLOL SUCCINATE 25 MG TAB.ER.24H PO SCH (05:56)
[2018-12-25] MEDS: INSULIN LISPRO 100 UNITS/ML, PEN SQ-INSULIN SCH ×4 (07:00→20:24)
[2018-12-25 07:05] VITALS: BP 81/45
[2018-12-25] MEDS: MIDODRINE 5 MG TABLET PO SCH ×3 (07:15→20:23)
[2018-12-25] MEDS: TEMPLATE NON-FORMULARY MED. (Lanthanum Carbonate** (Fosrenol**) 1,000 MG) HOMEMEDPO SCH ×3 (08:00→17:00)
[2018-12-25] MEDS: SENNA/DOCUSATE TABLET PO SCH (09:00)
[2018-12-25] MEDS: TRIAMCINOLONE CRM 0.1%, 15GM TP SCH ×2 (09:45→20:22)
[2018-12-25] MEDS: CEFTRIAXONE PMX 2GM/50ML 50 ML IV SCH (12:22)
[2018-12-25] MEDS: FOLIC ACID 1 MG TABLET PO SCH (12:22)
[2018-12-25] MEDS: RIFAXIMIN 550 MG TABLET PO SCH ×2 (12:22→20:23)
[2018-12-25] MEDS: FLUDROCORTISONE 0.1 MG TABLET PO SCH (12:22)
[2018-12-25] MEDS: LACTULOSE 10 GM/15 ML UDC PO SCH ×2 (12:23→20:22)
[2018-12-25] MEDS: PANTOPROZOLE 40MG TABLET PO SCH ×2 (12:23→20:23)
[2018-12-25 13:38] VITALS: BP 92/50
[2018-12-25] MEDS: INSULIN GLARGINE 100 UNITS/ML, PEN SQ-INSULIN SCH (20:23)
[2018-12-25 21:31] VITALS: BP 87/82
[2018-12-25] MEDS: ARANESP 200 MCG/ML **ESRD SQ SCH (23:01)
[2018-12-26] MEDS: AMPICILLIN 2 GM in SODIUM CHLORIDE 0.9% 100 ML IV SCH ×2 (01:25→13:18)
[2018-12-26 01:28] VITALS: BP 89/50
[2018-12-26 05:43] VITALS: BP 97/57
[2018-12-26] MEDS: METOPROLOL SUCCINATE 25 MG TAB.ER.24H PO SCH (05:47)
[2018-12-26] MEDS: INSULIN LISPRO 100 UNITS/ML, PEN SQ-INSULIN SCH ×4 (07:00→21:00)
[2018-12-26] MEDS: TEMPLATE NON-FORMULARY MED. (Lanthanum Carbonate** (Fosrenol**) 1,000 MG) HOMEMEDPO SCH ×3 (08:00→17:00)
[2018-12-26] MEDS: SENNA/DOCUSATE TABLET PO SCH (08:38)
[2018-12-26] MEDS: CEFTRIAXONE PMX 2GM/50ML 50 ML IV SCH (08:56)
[2018-12-26] MEDS: RIFAXIMIN 550 MG TABLET PO SCH ×2 (08:57→21:07)
[2018-12-26] MEDS: FOLIC ACID 1 MG TABLET PO SCH (08:57)
[2018-12-26] MEDS: MIDODRINE 5 MG TABLET PO SCH ×3 (08:57→21:07)
[2018-12-26] MEDS: LACTULOSE 10 GM/15 ML UDC PO SCH ×2 (08:57→21:08)
[2018-12-26] MEDS: TRIAMCINOLONE CRM 0.1%, 15GM TP SCH ×2 (08:57→21:00)
[2018-12-26] MEDS: PANTOPROZOLE 40MG TABLET PO SCH ×2 (08:57→21:07)
[2018-12-26] MEDS: FLUDROCORTISONE 0.1 MG TABLET PO SCH (08:57)
[2018-12-26 14:02] VITALS: BP 96/63
[2018-12-26 18:41] VITALS: BP 92/51
[2018-12-26] MEDS: INSULIN GLARGINE 100 UNITS/ML, PEN SQ-INSULIN SCH (21:08)
[2018-12-27 01:04] VITALS: BP 89/53
[2018-12-27] MEDS: AMPICILLIN 2 GM in SODIUM CHLORIDE 0.9% 100 ML IV SCH ×2 (01:05→13:31)
[2018-12-27 05:57] VITALS: BP 93/55
[2018-12-27] MEDS: METOPROLOL SUCCINATE 25 MG TAB.ER.24H PO SCH (06:00)
[2018-12-27] MEDS: INSULIN LISPRO 100 UNITS/ML, PEN SQ-INSULIN SCH ×4 (07:00→22:31)
[2018-12-27 07:24] VITALS: BP 94/61
[2018-12-27] MEDS: TEMPLATE NON-FORMULARY MED. (Lanthanum Carbonate** (Fosrenol**) 1,000 MG) HOMEMEDPO SCH ×3 (08:00→16:43)
[2018-12-27] MEDS: RIFAXIMIN 550 MG TABLET PO SCH ×2 (08:29→22:31)
[2018-12-27] MEDS: FOLIC ACID 1 MG TABLET PO SCH (08:29)
[2018-12-27] MEDS: CEFTRIAXONE PMX 2GM/50ML 50 ML IV SCH (08:30)
[2018-12-27] MEDS: MIDODRINE 5 MG TABLET PO SCH ×3 (08:30→22:31)
[2018-12-27] MEDS: PANTOPROZOLE 40MG TABLET PO SCH ×2 (08:30→22:31)
[2018-12-27] MEDS: LACTULOSE 10 GM/15 ML UDC PO SCH ×2 (08:30→22:31)
[2018-12-27] MEDS: FLUDROCORTISONE 0.1 MG TABLET PO SCH (08:30)
[2018-12-27] MEDS: TRIAMCINOLONE CRM 0.1%, 15GM TP SCH ×2 (09:00→22:38)
[2018-12-27] MEDS: SENNA/DOCUSATE TABLET PO SCH (09:00)
[2018-12-27 13:49] VITALS: BP 92/55
[2018-12-27 18:11] VITALS: BP 97/57
[2018-12-27] MEDS: INSULIN GLARGINE 100 UNITS/ML, PEN SQ-INSULIN SCH (22:32)
[2018-12-28] VITALS (8 sets, daily range): BP systolic 80–111; BP diastolic 5–56
[2018-12-28] MEDS: TEMAZEPAM 15 MG CAPSULE PO PRN (00:21)
[2018-12-28] MEDS: AMPICILLIN 2 GM in SODIUM CHLORIDE 0.9% 100 ML IV SCH ×2 (01:29→13:35)
[2018-12-28] MEDS: METOPROLOL SUCCINATE 25 MG TAB.ER.24H PO SCH (06:01)
[2018-12-28 06:08] LABS: MEAN CORPUSCULAR HEMOGLOBIN 36.8 pg (27.5-34.5); MEAN CORPUSCULAR VOLUME 108.4 fL (81-97); MEAN PLATELET VOLUME 10.1 fL (7.4-10.4); RED BLOOD COUNT 1.82 x10^6/uL (4.38-5.82); RED CELL DISTRIBUTION WIDTH 29.8 % (9.4-14.8)
[2018-12-28 06:11] LABS: PLATELET COUNT 40 x10^3/uL (130-400)
[2018-12-28 06:13] LABS: HCT (SEDRATE) 19.7 % (39.2-51.8)
[2018-12-28 06:21] LABS: CHLORIDE 107 mmol/L (98-107)
[2018-12-28 06:32] LABS: ALANINE AMINOTRANSFERASE 8 U/L (12-78); ALBUMIN 1.7 g/dL (3.4-5.0); ALKALINE PHOSPHATASE 98 U/L (45-117); ANION GAP 9 mmol/L (5-15); BILIRUBIN,TOTAL 0.8 mg/dL (0.2-1.0); CALCIUM 7.8 mg/dL (8.5-10.1); CREATININE 6.34 mg/dL (0.7-1.3); TOTAL PROTEIN 4.4 g/dL (6.4-8.2)
[2018-12-28 06:49] LABS: BASOPHILS # (AUTO) 0.02 x10^3/uL (0-0.1); BASOPHILS % (AUTO) 1 % (0-1); EOSINOPHILS % (AUTO) 0 % (1-7); LYMPHOCYTES # (AUTO) 0.93 x10^3/uL (1-3.4); LYMPHOCYTES % (AUTO) 29 % (22-44); MD SCAN; MONOCYTES # (AUTO) 0.29 x10^3/uL (0.2-0.8); MONOCYTES % (AUTO) 9 % (2-9); NEUTROPHILS % (AUTO) 62 % (42-75)
[2018-12-28] MEDS: INSULIN LISPRO 100 UNITS/ML, PEN SQ-INSULIN SCH ×4 (07:00→21:00)
[2018-12-28] MEDS: TRIAMCINOLONE CRM 0.1%, 15GM TP SCH ×2 (07:19→21:18)
[2018-12-28] MEDS: TEMPLATE NON-FORMULARY MED. (Lanthanum Carbonate** (Fosrenol**) 1,000 MG) HOMEMEDPO SCH ×3 (08:00→16:20)
[2018-12-28] MEDS: SENNA/DOCUSATE TABLET PO SCH (09:00)
[2018-12-28] MEDS: ALBUMIN HUMAN 25% 100 ML IV PRN (10:15)
[2018-12-28] MEDS: LACTULOSE 10 GM/15 ML UDC PO SCH ×2 (12:19→20:40)
[2018-12-28] MEDS: RIFAXIMIN 550 MG TABLET PO SCH ×2 (12:19→20:41)
[2018-12-28] MEDS: PANTOPROZOLE 40MG TABLET PO SCH ×2 (12:19→20:41)
[2018-12-28] MEDS: FLUDROCORTISONE 0.1 MG TABLET PO SCH (12:19)
[2018-12-28] MEDS: FOLIC ACID 1 MG TABLET PO SCH (12:19)
[2018-12-28] MEDS: MIDODRINE 5 MG TABLET PO SCH ×3 (12:20→20:41)
[2018-12-28] MEDS: CEFTRIAXONE PMX 2GM/50ML 50 ML IV SCH (12:26)
[2018-12-28] MEDS: INSULIN GLARGINE 100 UNITS/ML, PEN SQ-INSULIN SCH (20:40)
[2018-12-29 00:49] VITALS: BP 97/58
[2018-12-29] MEDS: AMPICILLIN 2 GM in SODIUM CHLORIDE 0.9% 100 ML IV SCH ×2 (01:21→13:39)
[2018-12-29 05:50] VITALS: BP 86/48
[2018-12-29] MEDS: METOPROLOL SUCCINATE 25 MG TAB.ER.24H PO SCH (06:06)
[2018-12-29 06:54] VITALS: BP 90/52
[2018-12-29] MEDS: INSULIN LISPRO 100 UNITS/ML, PEN SQ-INSULIN SCH ×4 (07:00→21:03)
[2018-12-29] MEDS: TEMPLATE NON-FORMULARY MED. (Lanthanum Carbonate** (Fosrenol**) 1,000 MG) HOMEMEDPO SCH ×3 (07:50→16:57)
[2018-12-29] MEDS: SENNA/DOCUSATE TABLET PO SCH (07:51)
[2018-12-29] MEDS: TRIAMCINOLONE CRM 0.1%, 15GM TP SCH ×2 (09:09→22:19)
[2018-12-29] MEDS: RIFAXIMIN 550 MG TABLET PO SCH ×2 (09:10→21:00)
[2018-12-29] MEDS: FOLIC ACID 1 MG TABLET PO SCH (09:10)
[2018-12-29] MEDS: PANTOPROZOLE 40MG TABLET PO SCH ×2 (09:11→21:00)
[2018-12-29] MEDS: FLUDROCORTISONE 0.1 MG TABLET PO SCH (09:11)
[2018-12-29] MEDS: LACTULOSE 10 GM/15 ML UDC PO SCH ×2 (09:11→20:59)
[2018-12-29] MEDS: MIDODRINE 5 MG TABLET PO SCH ×3 (09:11→21:00)
[2018-12-29] MEDS: CEFTRIAXONE PMX 2GM/50ML 50 ML IV SCH (09:12)
[2018-12-29 12:58] VITALS: BP 102/60
[2018-12-29 20:18] VITALS: BP 89/53
[2018-12-29] MEDS: INSULIN GLARGINE 100 UNITS/ML, PEN SQ-INSULIN SCH (21:02)
[2018-12-30] MEDS: AMPICILLIN 2 GM in SODIUM CHLORIDE 0.9% 100 ML IV SCH ×2 (01:38→13:30)
[2018-12-30 02:15] VITALS: BP 115/65
[2018-12-30] MEDS: METOPROLOL SUCCINATE 25 MG TAB.ER.24H PO SCH (05:49)
[2018-12-30] MEDS: INSULIN LISPRO 100 UNITS/ML, PEN SQ-INSULIN SCH ×4 (07:00→21:02)
[2018-12-30] MEDS: TEMPLATE NON-FORMULARY MED. (Lanthanum Carbonate** (Fosrenol**) 1,000 MG) HOMEMEDPO SCH ×3 (08:00→17:00)
[2018-12-30 08:46] VITALS: BP 97/58
[2018-12-30] MEDS: SENNA/DOCUSATE TABLET PO SCH (09:00)
[2018-12-30] MEDS: CEFTRIAXONE PMX 2GM/50ML 50 ML IV SCH (10:46)
[2018-12-30] MEDS: MIDODRINE 5 MG TABLET PO SCH ×3 (10:46→20:58)
[2018-12-30] MEDS: TRIAMCINOLONE CRM 0.1%, 15GM TP SCH ×2 (10:46→20:59)
[2018-12-30] MEDS: FLUDROCORTISONE 0.1 MG TABLET PO SCH (13:28)
[2018-12-30] MEDS: RIFAXIMIN 550 MG TABLET PO SCH ×2 (13:28→20:58)
[2018-12-30] MEDS: LACTULOSE 10 GM/15 ML UDC PO SCH ×2 (13:28→20:57)
[2018-12-30] MEDS: PANTOPROZOLE 40MG TABLET PO SCH ×2 (13:29→20:58)
[2018-12-30] MEDS: FOLIC ACID 1 MG TABLET PO SCH (13:29)
[2018-12-30 14:56] VITALS: BP 105/61
[2018-12-30 19:21] VITALS: BP 90/30
[2018-12-30] MEDS: INSULIN GLARGINE 100 UNITS/ML, PEN SQ-INSULIN SCH (20:59)
[2018-12-31 00:31] VITALS: BP 93/54
[2018-12-31] MEDS: AMPICILLIN 2 GM in SODIUM CHLORIDE 0.9% 100 ML IV SCH ×2 (01:36→13:56)
[2018-12-31 05:37] VITALS: BP 89/46
[2018-12-31] MEDS: METOPROLOL SUCCINATE 25 MG TAB.ER.24H PO SCH (05:38)
[2018-12-31 07:52] VITALS: BP 96/38
[2018-12-31] MEDS ORDERED: ACETAMINOPHEN 325 MG TABLET PO PRN (09:00)
[2018-12-31] MEDS: INSULIN LISPRO 100 UNITS/ML, PEN SQ-INSULIN SCH ×4 (09:31→21:14)
[2018-12-31] MEDS: FLUDROCORTISONE 0.1 MG TABLET PO SCH (09:42)
[2018-12-31] MEDS: LACTOBACILLUS CHEW TABLET PO SCH ×3 (09:42→21:12)
[2018-12-31] MEDS: FOLIC ACID 1 MG TABLET PO SCH (09:43)
[2018-12-31] MEDS: RIFAXIMIN 550 MG TABLET PO SCH ×2 (09:43→21:14)
[2018-12-31] MEDS: PANTOPROZOLE 40MG TABLET PO SCH ×2 (09:43→21:14)
[2018-12-31] MEDS: MIDODRINE 5 MG TABLET PO SCH ×3 (09:43→21:14)
[2018-12-31] MEDS: GUAIFENESIN 200 MG TABLET PO SCH ×2 (09:43→21:15)
[2018-12-31] MEDS: TEMPLATE NON-FORMULARY MED. (Lanthanum Carbonate** (Fosrenol**) 1,000 MG) HOMEMEDPO SCH ×3 (09:46→16:19)
[2018-12-31] MEDS: TRIAMCINOLONE CRM 0.1%, 15GM TP SCH ×2 (09:47→21:15)
[2018-12-31] MEDS: CEFTRIAXONE PMX 2GM/50ML 50 ML IV SCH (11:11)
[2018-12-31 14:45] VITALS: BP 93/43
--- NOTE | 2018-12-31 14:51 | NUR ---
Green activity sheet posted in patients room requesting staff encourage pt to get into chair position a few times a day in bed. Discussed with patient, pt's mother and RNBrielle. Addendum: 12/31/18 at 1451 by Rafa Neal PT Amended: Links added.
[2018-12-31] MEDS: CARVEDILOL 6.25 MG TABLET PO SCH (18:14)
[2018-12-31 19:54] VITALS: BP 103/60
[2019-01-01] VITALS (14 sets, daily range): BP systolic 81–103; BP diastolic 40–74
[2019-01-01] MEDS: AMPICILLIN 2 GM in SODIUM CHLORIDE 0.9% 100 ML IV SCH ×2 (02:04→15:44)
[2019-01-01] MEDS: CARVEDILOL 6.25 MG TABLET PO SCH ×2 (06:18→18:07)
[2019-01-01] MEDS: INSULIN LISPRO 100 UNITS/ML, PEN SQ-INSULIN SCH ×4 (07:00→20:12)
[2019-01-01] MEDS: TEMPLATE NON-FORMULARY MED. (Lanthanum Carbonate** (Fosrenol**) 1,000 MG) HOMEMEDPO SCH ×3 (08:00→15:46)
[2019-01-01 10:58] LABS: MEAN CORPUSCULAR HGB CONC 34.1 g/dL (33.2-36.2); MEAN CORPUSCULAR VOLUME 108.4 fL (81-97); RED BLOOD COUNT 1.62 x10^6/uL (4.38-5.82); RED CELL DISTRIBUTION WIDTH 28.9 % (9.4-14.8)
[2019-01-01] MEDS: MIDODRINE 5 MG TABLET PO SCH ×3 (11:01→20:06)
[2019-01-01 11:02] LABS: ANION GAP 6 mmol/L (5-15); CALCIUM 7.3 mg/dL (8.5-10.1); CHLORIDE 106 mmol/L (98-107)
[2019-01-01 11:03] LABS: % IRON SATURATION 65 % (20-55); CREATININE 4.35 mg/dL (0.7-1.3); IRON LEVEL 80 mcg/dL (65-175); TOTAL IRON BINDING CAPACITY 124 mcg/dL (250-450)
[2019-01-01 11:16] LABS: MEAN PLATELET VOLUME 9.8 fL (7.4-10.4)
[2019-01-01 11:20] LABS: PLATELET COUNT 22 x10^3/uL (130-400)
[2019-01-01 11:22] LABS: BASOPHILS # (AUTO) 0.01 x10^3/uL (0-0.1); BASOPHILS % (AUTO) 1 % (0-1); EOSINOPHILS % (AUTO) 0 % (1-7); LYMPHOCYTES # (AUTO) 0.46 x10^3/uL (1-3.4); LYMPHOCYTES % (AUTO) 26 % (22-44); MD SCAN; MONOCYTES # (AUTO) 0.14 x10^3/uL (0.2-0.8); MONOCYTES % (AUTO) 8 % (2-9); NEUTROPHILS # (AUTO) 1.17 x10^3/uL (1.8-6.8); NEUTROPHILS % (AUTO) 66 % (42-75)
[2019-01-01] MEDS: CEFTRIAXONE PMX 2GM/50ML 50 ML IV SCH (13:46)
[2019-01-01] MEDS: FLUDROCORTISONE 0.1 MG TABLET PO SCH (13:48)
[2019-01-01] MEDS: GUAIFENESIN 200 MG TABLET PO SCH ×2 (13:48→20:06)
[2019-01-01] MEDS: LACTOBACILLUS CHEW TABLET PO SCH ×3 (13:48→20:06)
[2019-01-01] MEDS: PANTOPROZOLE 40MG TABLET PO SCH ×2 (13:49→20:07)
[2019-01-01] MEDS: FOLIC ACID 1 MG TABLET PO SCH (13:49)
[2019-01-01] MEDS: RIFAXIMIN 550 MG TABLET PO SCH ×2 (13:49→20:07)
[2019-01-01] MEDS: TRIAMCINOLONE CRM 0.1%, 15GM TP SCH ×2 (13:50→20:13)
[2019-01-01] MEDS: ARANESP 200 MCG/ML **ESRD SQ SCH (22:14)
[2019-01-02 00:48] VITALS: BP 89/51
[2019-01-02] MEDS: AMPICILLIN 2 GM in SODIUM CHLORIDE 0.9% 100 ML IV SCH ×2 (03:22→16:04)
[2019-01-02 06:24] LABS: MEAN CORPUSCULAR HEMOGLOBIN 36.5 pg (27.5-34.5); MEAN CORPUSCULAR VOLUME 107.3 fL (81-97); MEAN PLATELET VOLUME 9.5 fL (7.4-10.4); RED BLOOD COUNT 1.96 x10^6/uL (4.38-5.82); RED CELL DISTRIBUTION WIDTH 29.6 % (9.4-14.8)
[2019-01-02 06:48] LABS: PLATELET COUNT 22 x10^3/uL (130-400)
[2019-01-02 06:50] LABS: BASOPHILS # (AUTO) 0.01 x10^3/uL (0-0.1); BASOPHILS % (AUTO) 1 % (0-1); EOSINOPHILS % (AUTO) 0 % (1-7); LYMPHOCYTES # (AUTO) 0.53 x10^3/uL (1-3.4); LYMPHOCYTES % (AUTO) 25 % (22-44); MD SCAN; MONOCYTES # (AUTO) 0.22 x10^3/uL (0.2-0.8); MONOCYTES % (AUTO) 10 % (2-9); NEUTROPHILS # (AUTO) 1.39 x10^3/uL (1.8-6.8); NEUTROPHILS % (AUTO) 65 % (42-75)
[2019-01-02] MEDS: INSULIN LISPRO 100 UNITS/ML, PEN SQ-INSULIN SCH ×4 (07:00→21:27)
[2019-01-02] MEDS: TEMPLATE NON-FORMULARY MED. (Lanthanum Carbonate** (Fosrenol**) 1,000 MG) HOMEMEDPO SCH ×3 (07:33→15:57)
[2019-01-02 07:54] VITALS: BP 94/53
[2019-01-02] MEDS: TRIAMCINOLONE CRM 0.1%, 15GM TP SCH ×2 (09:00→21:28)
[2019-01-02] MEDS: CARVEDILOL 6.25 MG TABLET PO SCH ×2 (09:00→17:26)
[2019-01-02] MEDS: CEFTRIAXONE PMX 2GM/50ML 50 ML IV SCH (09:02)
[2019-01-02] MEDS: ACETYLCYSTEINE 600 MG CAPSULE PO SCH ×2 (09:03→21:27)
[2019-01-02] MEDS: RIFAXIMIN 550 MG TABLET PO SCH ×2 (09:03→21:26)
[2019-01-02] MEDS: MIDODRINE 5 MG TABLET PO SCH ×3 (09:03→21:27)
[2019-01-02] MEDS: FOLIC ACID 1 MG TABLET PO SCH (09:03)
[2019-01-02] MEDS: PANTOPROZOLE 40MG TABLET PO SCH ×2 (09:03→21:27)
[2019-01-02] MEDS: LACTOBACILLUS CHEW TABLET PO SCH ×3 (09:03→21:27)
[2019-01-02] MEDS: FLUDROCORTISONE 0.1 MG TABLET PO SCH (09:03)
[2019-01-02 12:31] VITALS: BP 113/56
[2019-01-02 17:20] VITALS: BP 110/58
[2019-01-02 19:38] VITALS: BP 97/54
[2019-01-03 02:07] VITALS: BP 90/50
[2019-01-03] MEDS: AMPICILLIN 2 GM in SODIUM CHLORIDE 0.9% 100 ML IV SCH ×2 (03:14→14:59)
[2019-01-03 06:04] VITALS: BP 91/52
[2019-01-03] MEDS: CARVEDILOL 6.25 MG TABLET PO SCH ×2 (06:05→18:34)
[2019-01-03 06:48] LABS: MEAN CORPUSCULAR HEMOGLOBIN 34.2 pg (27.5-34.5); MEAN CORPUSCULAR HGB CONC 31.5 g/dL (33.2-36.2); MEAN CORPUSCULAR VOLUME 108.6 fL (81-97); RED BLOOD COUNT 2.15 x10^6/uL (4.38-5.82); RED CELL DISTRIBUTION WIDTH 29.4 % (9.4-14.8)
[2019-01-03] MEDS: INSULIN LISPRO 100 UNITS/ML, PEN SQ-INSULIN SCH ×4 (07:00→20:26)
[2019-01-03 07:52] LABS: PLATELET COUNT 33 x10^3/uL (130-400)
[2019-01-03 07:55] LABS: BASOPHILS # (AUTO) 0.04 x10^3/uL (0-0.1); BASOPHILS % (AUTO) 1 % (0-1); EOSINOPHILS # (AUTO) 0.11 x10^3/uL (0-0.4); EOSINOPHILS % (AUTO) 3 % (1-7); LYMPHOCYTES # (AUTO) 0.77 x10^3/uL (1-3.4); LYMPHOCYTES % (AUTO) 21 % (22-44); MD SCAN; MONOCYTES # (AUTO) 0.31 x10^3/uL (0.2-0.8); MONOCYTES % (AUTO) 9 % (2-9); NEUTROPHILS # (AUTO) 2.41 x10^3/uL (1.8-6.8); NEUTROPHILS % (AUTO) 66 % (42-75)
[2019-01-03] MEDS: TEMPLATE NON-FORMULARY MED. (Lanthanum Carbonate** (Fosrenol**) 1,000 MG) HOMEMEDPO SCH ×3 (08:00→17:00)
[2019-01-03] MEDS: CEFTRIAXONE PMX 2GM/50ML 50 ML IV SCH (09:24)
[2019-01-03] MEDS: PANTOPROZOLE 40MG TABLET PO SCH ×2 (09:24→20:38)
[2019-01-03] MEDS: RIFAXIMIN 550 MG TABLET PO SCH ×2 (09:24→20:38)
[2019-01-03] MEDS: ACETYLCYSTEINE 600 MG CAPSULE PO SCH ×2 (09:24→20:38)
[2019-01-03] MEDS: LACTOBACILLUS CHEW TABLET PO SCH ×3 (09:24→20:38)
[2019-01-03] MEDS: FLUDROCORTISONE 0.1 MG TABLET PO SCH (09:25)
[2019-01-03] MEDS: FOLIC ACID 1 MG TABLET PO SCH (09:26)
[2019-01-03] MEDS: MIDODRINE 5 MG TABLET PO SCH ×3 (09:26→20:38)
[2019-01-03] MEDS: TRIAMCINOLONE CRM 0.1%, 15GM TP SCH ×2 (09:27→20:38)
[2019-01-03 14:00] VITALS: BP 103/66
[2019-01-03 19:54] VITALS: BP 104/57
[2019-01-03 21:17] LABS: OCCULT BLOOD POSITIVE (NEGATIVE)
[2019-01-04 00:19] VITALS: BP 114/66
[2019-01-04] MEDS: TEMAZEPAM 15 MG CAPSULE PO PRN (00:21)
[2019-01-04] MEDS: AMPICILLIN 2 GM in SODIUM CHLORIDE 0.9% 100 ML IV SCH ×2 (03:26→16:42)
[2019-01-04 06:05] VITALS: BP 113/62
[2019-01-04] MEDS: CARVEDILOL 6.25 MG TABLET PO SCH ×2 (06:06→18:38)
[2019-01-04 07:17] VITALS: BP 101/63
[2019-01-04] MEDS: TRIAMCINOLONE CRM 0.1%, 15GM TP SCH ×2 (09:00→13:19)
[2019-01-04] MEDS: INSULIN LISPRO 100 UNITS/ML, PEN SQ-INSULIN SCH ×4 (10:36→21:56)
[2019-01-04] MEDS: LACTOBACILLUS CHEW TABLET PO SCH ×3 (10:37→22:11)
[2019-01-04] MEDS: RIFAXIMIN 550 MG TABLET PO SCH ×2 (10:37→22:10)
[2019-01-04] MEDS: PANTOPROZOLE 40MG TABLET PO SCH ×2 (10:37→16:42)
[2019-01-04] MEDS: FLUDROCORTISONE 0.1 MG TABLET PO SCH (10:37)
[2019-01-04] MEDS: FOLIC ACID 1 MG TABLET PO SCH (10:37)
[2019-01-04] MEDS: MIDODRINE 5 MG TABLET PO SCH ×3 (10:37→22:11)
[2019-01-04] MEDS: ACETYLCYSTEINE 600 MG CAPSULE PO SCH ×2 (11:34→22:10)
[2019-01-04] MEDS: TEMPLATE NON-FORMULARY MED. (Lanthanum Carbonate** (Fosrenol**) 1,000 MG) HOMEMEDPO SCH ×3 (12:00→16:43)
[2019-01-04] MEDS: CEFTRIAXONE PMX 2GM/50ML 50 ML IV SCH (13:18)
[2019-01-04 14:00] LABS: ALANINE AMINOTRANSFERASE 8 U/L (12-78); ALBUMIN 2.2 g/dL (3.4-5.0); ANION GAP 7 mmol/L (5-15); CALCIUM 8.3 mg/dL (8.5-10.1); CHLORIDE 104 mmol/L (98-107); CREATININE 4.12 mg/dL (0.7-1.3)
[2019-01-04 14:05] VITALS: BP 107/65
[2019-01-04 14:11] LABS: ALKALINE PHOSPHATASE 95 U/L (45-117); BILIRUBIN,TOTAL 1.3 mg/dL (0.2-1.0); TOTAL PROTEIN 4.8 g/dL (6.4-8.2)
[2019-01-04 14:24] LABS: MEAN CORPUSCULAR HEMOGLOBIN 35.9 pg (27.5-34.5); MEAN CORPUSCULAR HGB CONC 33.3 g/dL (33.2-36.2); MEAN CORPUSCULAR VOLUME 107.9 fL (81-97); MEAN PLATELET VOLUME 9.6 fL (7.4-10.4); RED BLOOD COUNT 2.18 x10^6/uL (4.38-5.82); RED CELL DISTRIBUTION WIDTH 29.1 % (9.4-14.8)
[2019-01-04 14:34] LABS: HCT (SEDRATE) 23.5 % (39.2-51.8)
[2019-01-04 14:35] LABS: ANISOCYTOSIS 1+; BASOPHILS # (AUTO) 0.06 x10^3/uL (0-0.1); BASOPHILS % (AUTO) 2 % (0-1); EOSINOPHILS % (AUTO) 3 % (1-7); LYMPHOCYTES % (AUTO) 27 % (22-44); MD MORPH REVIEW ONLY; MONOCYTES % (AUTO) 10 % (2-9); NEUTROPHILS # (AUTO) 1.75 x10^3/uL (1.8-6.8); NEUTROPHILS % (AUTO) 58 % (42-75)
[2019-01-04 14:36] LABS: OVALOCYTES 1+; POLYCHROMASIA 1+
[2019-01-04 14:37] LABS: <PLATELET ESTIMATE> DECREASED
[2019-01-04 14:38] LABS: <PLT MORPHOLOGY> NORMAL PLT MORPH
[2019-01-04 14:40] LABS: PLATELET COUNT 38 x10^3/uL (130-400)
[2019-01-04 20:09] VITALS: BP 97/62
[2019-01-05 02:34] VITALS: BP 92/54
[2019-01-05] MEDS: AMPICILLIN 2 GM in SODIUM CHLORIDE 0.9% 100 ML IV SCH ×2 (03:15→16:29)
[2019-01-05 05:22] VITALS: BP 93/55
[2019-01-05] MEDS: CARVEDILOL 6.25 MG TABLET PO SCH ×2 (05:24→18:00)
[2019-01-05 06:19] LABS: MEAN CORPUSCULAR HEMOGLOBIN 36.1 pg (27.5-34.5); MEAN CORPUSCULAR HGB CONC 33.1 g/dL (33.2-36.2); MEAN CORPUSCULAR VOLUME 108.9 fL (81-97); MEAN PLATELET VOLUME 10.1 fL (7.4-10.4); RED BLOOD COUNT 2.05 x10^6/uL (4.38-5.82); RED CELL DISTRIBUTION WIDTH 29.3 % (9.4-14.8)
[2019-01-05 06:21] LABS: INTERNATIONAL NORMALIZED RATIO 1.52 (0.93-1.1); PLATELET COUNT 42 x10^3/uL (130-400); PROTHROMBIN TIME 15.7 Seconds (9.6-11.5)
[2019-01-05 06:29] LABS: ANION GAP 10 mmol/L (5-15); CALCIUM 7.9 mg/dL (8.5-10.1); CHLORIDE 104 mmol/L (98-107)
[2019-01-05 06:40] LABS: ALANINE AMINOTRANSFERASE 6 U/L (12-78); ALKALINE PHOSPHATASE 78 U/L (45-117); BILIRUBIN,TOTAL 1.6 mg/dL (0.2-1.0); CREATININE 5.06 mg/dL (0.7-1.3); TOTAL PROTEIN 4.8 g/dL (6.4-8.2)
[2019-01-05 06:45] LABS: BASOPHILS # (AUTO) 0.05 x10^3/uL (0-0.1); BASOPHILS % (AUTO) 1 % (0-1); EOSINOPHILS # (AUTO) 0.09 x10^3/uL (0-0.4); EOSINOPHILS % (AUTO) 2 % (1-7); LYMPHOCYTES # (AUTO) 0.84 x10^3/uL (1-3.4); LYMPHOCYTES % (AUTO) 24 % (22-44); MD SCAN; MONOCYTES # (AUTO) 0.34 x10^3/uL (0.2-0.8); MONOCYTES % (AUTO) 9 % (2-9); NEUTROPHILS # (AUTO) 2.27 x10^3/uL (1.8-6.8); NEUTROPHILS % (AUTO) 63 % (42-75)
[2019-01-05 06:51] LABS: HCT (SEDRATE) 22.3 % (39.2-51.8)
[2019-01-05] MEDS: INSULIN LISPRO 100 UNITS/ML, PEN SQ-INSULIN SCH ×4 (07:00→19:36)
[2019-01-05] MEDS ORDERED: PHYTONADIONE 5 MG TABLET PO ONE (07:30)
[2019-01-05 07:46] VITALS: BP 92/54
[2019-01-05] MEDS ORDERED: DEXTROSE 4 GM TAB.CHEW PO PRN (08:00)
[2019-01-05] MEDS ORDERED: GLUCAGON 1 MG IM PRN (08:00)
[2019-01-05] MEDS: TEMPLATE NON-FORMULARY MED. (Lanthanum Carbonate** (Fosrenol**) 1,000 MG) HOMEMEDPO SCH ×3 (08:00→16:20)
[2019-01-05] MEDS ORDERED: DEXTROSE 50%, 50ML SYRINGE IVPush PRN (08:00)
[2019-01-05] MEDS: PANTOPROZOLE 40MG TABLET PO SCH ×2 (08:11→16:29)
[2019-01-05] MEDS: SODIUM CHLORIDE FLUSH 10ML SYR IVF SCH ×2 (08:20→21:05)
[2019-01-05] MEDS: FLUDROCORTISONE 0.1 MG TABLET PO SCH (09:00)
[2019-01-05] MEDS: RIFAXIMIN 550 MG TABLET PO SCH ×2 (09:00→21:04)
[2019-01-05] MEDS: MIDODRINE 5 MG TABLET PO SCH ×3 (09:00→21:05)
[2019-01-05] MEDS: FOLIC ACID 1 MG TABLET PO SCH (09:00)
[2019-01-05] MEDS: LACTOBACILLUS CHEW TABLET PO SCH ×3 (09:00→21:04)
[2019-01-05] MEDS: ACETYLCYSTEINE 600 MG CAPSULE PO SCH ×2 (09:00→21:04)
[2019-01-05] MEDS: TRIAMCINOLONE CRM 0.1%, 15GM TP SCH ×2 (09:27→21:05)
[2019-01-05] MEDS: CEFTRIAXONE PMX 2GM/50ML 50 ML IV SCH (09:27)
[2019-01-05] MEDS ORDERED: EPHEDRINE 50 MG/ML, 1ML ONE (10:20)
[2019-01-05] MEDS: SUCRALFATE 1 GM/10 ML UDC PO SCH ×3 (12:41→21:05)
[2019-01-05 14:08] VITALS: BP 102/57
[2019-01-05 20:59] VITALS: BP 92/38
[2019-01-06] VITALS (14 sets, daily range): BP systolic 87–113; BP diastolic 46–69
[2019-01-06] MEDS: AMPICILLIN 2 GM in SODIUM CHLORIDE 0.9% 100 ML IV SCH (03:13)
[2019-01-06] MEDS: CARVEDILOL 6.25 MG TABLET PO SCH ×2 (06:00→18:00)
[2019-01-06] MEDS: INSULIN LISPRO 100 UNITS/ML, PEN SQ-INSULIN SCH (07:00)
[2019-01-06] MEDS: TEMPLATE NON-FORMULARY MED. (Lanthanum Carbonate** (Fosrenol**) 1,000 MG) HOMEMEDPO SCH ×3 (08:00→16:09)
[2019-01-06] MEDS: MIDODRINE 5 MG TABLET PO SCH ×3 (08:13→22:25)
[2019-01-06] MEDS: FOLIC ACID 1 MG TABLET PO SCH (08:13)
[2019-01-06] MEDS: RIFAXIMIN 550 MG TABLET PO SCH ×2 (08:13→22:20)
[2019-01-06] MEDS: PANTOPROZOLE 40MG TABLET PO SCH ×2 (08:13→16:09)
[2019-01-06] MEDS: SUCRALFATE 1 GM/10 ML UDC PO SCH ×4 (08:13→22:20)
[2019-01-06] MEDS: LACTOBACILLUS CHEW TABLET PO SCH ×3 (08:13→22:20)
[2019-01-06] MEDS: FLUDROCORTISONE 0.1 MG TABLET PO SCH (08:13)
[2019-01-06] MEDS: CEFTRIAXONE PMX 2GM/50ML 50 ML IV SCH (08:15)
[2019-01-06] MEDS: SODIUM CHLORIDE FLUSH 10ML SYR IVF SCH ×2 (08:16→21:00)
[2019-01-06] MEDS: TRIAMCINOLONE CRM 0.1%, 15GM TP SCH ×2 (08:27→22:24)
[2019-01-06] MEDS: ACETYLCYSTEINE 600 MG CAPSULE PO SCH ×2 (08:27→22:20)
[2019-01-06 11:05] LABS: MEAN CORPUSCULAR HEMOGLOBIN 35.5 pg (27.5-34.5); MEAN CORPUSCULAR HGB CONC 32.6 g/dL (33.2-36.2); MEAN CORPUSCULAR VOLUME 108.9 fL (81-97); RED BLOOD COUNT 1.91 x10^6/uL (4.38-5.82)
[2019-01-06 11:38] LABS: MEAN PLATELET VOLUME 9.4 fL (7.4-10.4)
[2019-01-06 11:46] LABS: PLATELET COUNT 40 x10^3/uL (130-400); RED CELL DISTRIBUTION WIDTH 28.9 % (9.4-14.8)
[2019-01-06 11:54] LABS: BASOPHILS # (AUTO) 0.02 x10^3/uL (0-0.1); BASOPHILS % (AUTO) 1 % (0-1); EOSINOPHILS % (AUTO) 0 % (1-7); LYMPHOCYTES # (AUTO) 0.85 x10^3/uL (1-3.4); LYMPHOCYTES % (AUTO) 28 % (22-44); MD SCAN; MONOCYTES # (AUTO) 0.29 x10^3/uL (0.2-0.8); MONOCYTES % (AUTO) 10 % (2-9); NEUTROPHILS # (AUTO) 1.91 x10^3/uL (1.8-6.8); NEUTROPHILS % (AUTO) 62 % (42-75)
[2019-01-06] MEDS: ALBUMIN HUMAN 25% 100 ML IV PRN (14:35)
[2019-01-06] MEDS ORDERED: DAPTOMYCIN IV SCH (16:00)
[2019-01-07 02:54] VITALS: BP 95/54
[2019-01-07] MEDS: CARVEDILOL 6.25 MG TABLET PO SCH ×2 (06:05→17:46)
[2019-01-07] MEDS: SUCRALFATE 1 GM/10 ML UDC PO SCH ×4 (06:20→20:34)
[2019-01-07 07:20] VITALS: BP 83/47
[2019-01-07 07:22] LABS: ALBUMIN 2.3 g/dL (3.4-5.0); ANION GAP 8 mmol/L (5-15); CALCIUM 8.2 mg/dL (8.5-10.1); CHLORIDE 104 mmol/L (98-107)
[2019-01-07 07:25] LABS: ALANINE AMINOTRANSFERASE 8 U/L (12-78); ALKALINE PHOSPHATASE 83 U/L (45-117); BILIRUBIN,TOTAL 2.2 mg/dL (0.2-1.0); CREATININE 4.43 mg/dL (0.7-1.3)
[2019-01-07 07:30] LABS: MEAN CORPUSCULAR HEMOGLOBIN 33.8 pg (27.5-34.5); MEAN CORPUSCULAR HGB CONC 31.9 g/dL (33.2-36.2); RED BLOOD COUNT 2.21 x10^6/uL (4.38-5.82); RED CELL DISTRIBUTION WIDTH 29.5 % (9.4-14.8)
[2019-01-07] MEDS: TEMPLATE NON-FORMULARY MED. (Lanthanum Carbonate** (Fosrenol**) 1,000 MG) HOMEMEDPO SCH ×3 (08:00→15:52)
[2019-01-07] MEDS: PANTOPROZOLE 40MG TABLET PO SCH ×2 (08:09→17:46)
[2019-01-07 08:19] LABS: MEAN PLATELET VOLUME 8.9 fL (7.4-10.4); PLATELET COUNT 37 x10^3/uL (130-400)
[2019-01-07 08:21] LABS: BASOPHILS # (AUTO) 0.01 x10^3/uL (0-0.1); BASOPHILS % (AUTO) 0 % (0-1); EOSINOPHILS % (AUTO) 0 % (1-7); LYMPHOCYTES # (AUTO) 0.74 x10^3/uL (1-3.4); LYMPHOCYTES % (AUTO) 30 % (22-44); MD SCAN; MONOCYTES # (AUTO) 0.24 x10^3/uL (0.2-0.8); MONOCYTES % (AUTO) 10 % (2-9); NEUTROPHILS # (AUTO) 1.43 x10^3/uL (1.8-6.8); NEUTROPHILS % (AUTO) 59 % (42-75)
[2019-01-07] MEDS: FLUDROCORTISONE 0.1 MG TABLET PO SCH (09:54)
[2019-01-07] MEDS: LACTOBACILLUS CHEW TABLET PO SCH ×3 (09:54→20:35)
[2019-01-07] MEDS: FOLIC ACID 1 MG TABLET PO SCH (09:54)
[2019-01-07] MEDS: MIDODRINE 5 MG TABLET PO SCH ×3 (09:54→20:35)
[2019-01-07] MEDS: RIFAXIMIN 550 MG TABLET PO SCH ×2 (09:54→20:35)
[2019-01-07] MEDS: ACETYLCYSTEINE 600 MG CAPSULE PO SCH ×2 (09:55→20:35)
[2019-01-07] MEDS: SODIUM CHLORIDE FLUSH 10ML SYR IVF SCH ×2 (09:55→20:40)
[2019-01-07] MEDS: TRIAMCINOLONE CRM 0.1%, 15GM TP SCH ×2 (09:55→20:34)
[2019-01-07 14:49] VITALS: BP 95/54
[2019-01-07 19:47] VITALS: BP 89/56
[2019-01-07 20:34] VITALS: BP 87/40
[2019-01-08 02:15] VITALS: BP 92/58
[2019-01-08] MEDS: CARVEDILOL 6.25 MG TABLET PO SCH ×2 (05:40→18:00)
[2019-01-08] MEDS: SUCRALFATE 1 GM/10 ML UDC PO SCH ×4 (07:00→21:33)
[2019-01-08 08:00] VITALS: BP 86/50
[2019-01-08] MEDS: TEMPLATE NON-FORMULARY MED. (Lanthanum Carbonate** (Fosrenol**) 1,000 MG) HOMEMEDPO SCH ×3 (08:00→16:34)
[2019-01-08] MEDS: TRIAMCINOLONE CRM 0.1%, 15GM TP SCH ×2 (09:00→21:37)
[2019-01-08] MEDS: SODIUM CHLORIDE FLUSH 10ML SYR IVF SCH ×2 (09:00→21:33)
[2019-01-08] MEDS: MIDODRINE 5 MG TABLET PO SCH ×3 (09:21→21:32)
[2019-01-08] MEDS: ALBUMIN HUMAN 25% 100 ML IV PRN (12:00)
[2019-01-08 12:06] LABS: MEAN CORPUSCULAR HEMOGLOBIN 34.9 pg (27.5-34.5); MEAN CORPUSCULAR HGB CONC 32.7 g/dL (33.2-36.2); MEAN CORPUSCULAR VOLUME 106.8 fL (81-97); MEAN PLATELET VOLUME 9.8 fL (7.4-10.4); RED BLOOD COUNT 2.13 x10^6/uL (4.38-5.82); RED CELL DISTRIBUTION WIDTH 29.6 % (9.4-14.8)
[2019-01-08 12:07] LABS: PLATELET COUNT 39 x10^3/uL (130-400)
[2019-01-08 12:57] LABS: BASOPHILS # (AUTO) 0.01 x10^3/uL (0-0.1); BASOPHILS % (AUTO) 0 % (0-1); EOSINOPHILS # (AUTO) 0.07 x10^3/uL (0-0.4); EOSINOPHILS % (AUTO) 2 % (1-7); LYMPHOCYTES # (AUTO) 0.73 x10^3/uL (1-3.4); LYMPHOCYTES % (AUTO) 25 % (22-44); MD MORPH REVIEW ONLY; MONOCYTES # (AUTO) 0.26 x10^3/uL (0.2-0.8); MONOCYTES % (AUTO) 9 % (2-9); NEUTROPHILS # (AUTO) 1.89 x10^3/uL (1.8-6.8); NEUTROPHILS % (AUTO) 64 % (42-75)
[2019-01-08 12:58] LABS: <PLATELET ESTIMATE> DECREASED; <PLT MORPHOLOGY> NORMAL PLT MORPH; ANISOCYTOSIS 1+; OVALOCYTES 1+; POLYCHROMASIA 1+
[2019-01-08] MEDS: RIFAXIMIN 550 MG TABLET PO SCH ×2 (14:59→21:33)
[2019-01-08] MEDS: FLUDROCORTISONE 0.1 MG TABLET PO SCH (14:59)
[2019-01-08] MEDS: PANTOPROZOLE 40MG TABLET PO SCH ×2 (14:59→16:34)
[2019-01-08] MEDS: FOLIC ACID 1 MG TABLET PO SCH (14:59)
[2019-01-08] MEDS: LACTOBACILLUS CHEW TABLET PO SCH ×3 (14:59→21:33)
[2019-01-08 15:55] VITALS: BP 96/63
[2019-01-08] MEDS: ACETYLCYSTEINE 600 MG CAPSULE PO SCH ×2 (16:42→21:33)
[2019-01-08 18:59] VITALS: BP 111/64
[2019-01-08] MEDS: ARANESP 200 MCG/ML **ESRD SQ SCH (21:32)
[2019-01-09 03:19] VITALS: BP 110/53
[2019-01-09] MEDS: CARVEDILOL 6.25 MG TABLET PO SCH ×2 (06:08→18:00)
[2019-01-09] MEDS: PANTOPROZOLE 40MG TABLET PO SCH ×2 (07:55→16:30)
[2019-01-09] MEDS: SUCRALFATE 1 GM/10 ML UDC PO SCH ×4 (07:55→20:48)
[2019-01-09] MEDS: TEMPLATE NON-FORMULARY MED. (Lanthanum Carbonate** (Fosrenol**) 1,000 MG) HOMEMEDPO SCH ×3 (07:55→16:30)
[2019-01-09] MEDS: SODIUM CHLORIDE FLUSH 10ML SYR IVF SCH ×2 (07:57→20:50)
[2019-01-09 08:00] VITALS: BP 104/52
[2019-01-09] MEDS: RIFAXIMIN 550 MG TABLET PO SCH ×2 (08:49→20:48)
[2019-01-09] MEDS: FOLIC ACID 1 MG TABLET PO SCH (08:49)
[2019-01-09] MEDS: ACETYLCYSTEINE 600 MG CAPSULE PO SCH ×2 (08:49→20:48)
[2019-01-09] MEDS: LACTOBACILLUS CHEW TABLET PO SCH ×3 (08:49→20:48)
[2019-01-09] MEDS: MIDODRINE 5 MG TABLET PO SCH ×3 (08:49→20:48)
[2019-01-09] MEDS: FLUDROCORTISONE 0.1 MG TABLET PO SCH (08:49)
[2019-01-09] MEDS: TRIAMCINOLONE CRM 0.1%, 15GM TP SCH ×2 (08:50→20:50)
[2019-01-09 16:28] VITALS: BP 83/43
[2019-01-09 20:12] VITALS: BP 115/55
[2019-01-10 00:50] VITALS: BP 106/58
[2019-01-10 05:40] VITALS: BP 90/55
[2019-01-10] MEDS: TEMPLATE NON-FORMULARY MED. (Lanthanum Carbonate** (Fosrenol**) 1,000 MG) HOMEMEDPO SCH ×3 (08:00→17:00)
[2019-01-10 08:05] VITALS: BP 97/60
[2019-01-10] MEDS: SODIUM CHLORIDE FLUSH 10ML SYR IVF SCH ×2 (09:00→21:12)
[2019-01-10 09:09] LABS: MEAN CORPUSCULAR HEMOGLOBIN 34.9 pg (27.5-34.5); MEAN CORPUSCULAR HGB CONC 32.2 g/dL (33.2-36.2); MEAN CORPUSCULAR VOLUME 108.4 fL (81-97); MEAN PLATELET VOLUME 9.4 fL (7.4-10.4); RED BLOOD COUNT 2.06 x10^6/uL (4.38-5.82); RED CELL DISTRIBUTION WIDTH 29.9 % (9.4-14.8)
[2019-01-10 09:13] LABS: ALANINE AMINOTRANSFERASE 9 U/L (12-78); ALBUMIN 2.2 g/dL (3.4-5.0); ANION GAP 8 mmol/L (5-15); CALCIUM 8.2 mg/dL (8.5-10.1); CHLORIDE 106 mmol/L (98-107); CREATININE 5.66 mg/dL (0.7-1.3)
[2019-01-10 09:16] LABS: ALKALINE PHOSPHATASE 79 U/L (45-117); BILIRUBIN,TOTAL 1.3 mg/dL (0.2-1.0); TOTAL PROTEIN 4.5 g/dL (6.4-8.2)
[2019-01-10] MEDS: SUCRALFATE 1 GM/10 ML UDC PO SCH ×4 (09:19→21:12)
[2019-01-10] MEDS: PANTOPROZOLE 40MG TABLET PO SCH ×2 (09:19→17:33)
[2019-01-10] MEDS: ACETYLCYSTEINE 600 MG CAPSULE PO SCH (09:19)
[2019-01-10] MEDS: LACTOBACILLUS CHEW TABLET PO SCH ×3 (09:20→21:12)
[2019-01-10] MEDS: MIDODRINE 5 MG TABLET PO SCH ×3 (09:20→21:12)
[2019-01-10] MEDS: FLUDROCORTISONE 0.1 MG TABLET PO SCH (09:20)
[2019-01-10] MEDS: FOLIC ACID 1 MG TABLET PO SCH (09:20)
[2019-01-10] MEDS: CARVEDILOL 6.25 MG TABLET PO SCH ×2 (09:20→17:33)
[2019-01-10] MEDS: RIFAXIMIN 550 MG TABLET PO SCH ×2 (09:21→21:12)
[2019-01-10] MEDS: TRIAMCINOLONE CRM 0.1%, 15GM TP SCH ×2 (09:21→21:13)
[2019-01-10 09:24] LABS: PLATELET COUNT 35 x10^3/uL (130-400)
[2019-01-10 09:36] LABS: BASOPHILS # (AUTO) 0.01 x10^3/uL (0-0.1); BASOPHILS % (AUTO) 1 % (0-1); EOSINOPHILS # (AUTO) 0.14 x10^3/uL (0-0.4); EOSINOPHILS % (AUTO) 6 % (1-7); LYMPHOCYTES # (AUTO) 0.73 x10^3/uL (1-3.4); LYMPHOCYTES % (AUTO) 28 % (22-44); MD SCAN; MONOCYTES # (AUTO) 0.25 x10^3/uL (0.2-0.8); MONOCYTES % (AUTO) 10 % (2-9); NEUTROPHILS # (AUTO) 1.46 x10^3/uL (1.8-6.8); NEUTROPHILS % (AUTO) 56 % (42-75)
[2019-01-10 16:23] VITALS: BP 112/69
[2019-01-10 19:27] VITALS: BP 94/50
[2019-01-10] MEDS: TEMAZEPAM 15 MG CAPSULE PO PRN (23:38)
[2019-01-11] VITALS (7 sets, daily range): BP systolic 92–107; BP diastolic 54–62
[2019-01-11] MEDS: CARVEDILOL 6.25 MG TABLET PO SCH ×2 (05:28→18:00)
[2019-01-11] MEDS: TRIAMCINOLONE CRM 0.1%, 15GM TP SCH ×2 (07:43→20:32)
[2019-01-11] MEDS: FLUDROCORTISONE 0.1 MG TABLET PO SCH (07:43)
[2019-01-11] MEDS: SUCRALFATE 1 GM/10 ML UDC PO SCH ×4 (07:43→20:32)
[2019-01-11] MEDS: FOLIC ACID 1 MG TABLET PO SCH (07:44)
[2019-01-11] MEDS: PANTOPROZOLE 40MG TABLET PO SCH ×2 (07:44→19:14)
[2019-01-11] MEDS: LACTOBACILLUS CHEW TABLET PO SCH ×3 (07:44→20:32)
[2019-01-11] MEDS: MIDODRINE 5 MG TABLET PO SCH ×3 (07:44→19:43)
[2019-01-11] MEDS: SODIUM CHLORIDE FLUSH 10ML SYR IVF SCH ×2 (07:45→19:14)
[2019-01-11] MEDS: TEMPLATE NON-FORMULARY MED. (Lanthanum Carbonate** (Fosrenol**) 1,000 MG) HOMEMEDPO SCH ×3 (07:58→17:00)
[2019-01-11] MEDS: RIFAXIMIN 550 MG TABLET PO SCH ×2 (10:12→20:32)
[2019-01-11 16:43] LABS: ALANINE AMINOTRANSFERASE 9 U/L (12-78); ANION GAP 8 mmol/L (5-15); CALCIUM 7.6 mg/dL (8.5-10.1); CHLORIDE 107 mmol/L (98-107); CREATININE 5.46 mg/dL (0.7-1.3)
[2019-01-11 16:46] LABS: ALKALINE PHOSPHATASE 95 U/L (45-117); BILIRUBIN,TOTAL 0.9 mg/dL (0.2-1.0); TOTAL PROTEIN 4.4 g/dL (6.4-8.2)
[2019-01-11] MEDS: ALBUMIN HUMAN 25% 100 ML IV PRN (16:52)
[2019-01-11 17:04] LABS: BASOPHILS # (AUTO) 0.03 x10^3/uL (0-0.1); BASOPHILS % (AUTO) 1 % (0-1); EOSINOPHILS # (AUTO) 0.05 x10^3/uL (0-0.4); EOSINOPHILS % (AUTO) 2 % (1-7); LYMPHOCYTES # (AUTO) 0.52 x10^3/uL (1-3.4); LYMPHOCYTES % (AUTO) 21 % (22-44); MD MORPH REVIEW ONLY; MEAN CORPUSCULAR HGB CONC 33.2 g/dL (33.2-36.2); MEAN CORPUSCULAR VOLUME 108.4 fL (81-97); MEAN PLATELET VOLUME 9.6 fL (7.4-10.4); MONOCYTES # (AUTO) 0.26 x10^3/uL (0.2-0.8); MONOCYTES % (AUTO) 10 % (2-9); NEUTROPHILS # (AUTO) 1.65 x10^3/uL (1.8-6.8); NEUTROPHILS % (AUTO) 66 % (42-75); RED BLOOD COUNT 1.96 x10^6/uL (4.38-5.82); RED CELL DISTRIBUTION WIDTH 29.7 % (9.4-14.8)
[2019-01-11 17:07] LABS: ANISOCYTOSIS 2+; MICROCYTOSIS 1+
[2019-01-11 17:08] LABS: <PLATELET ESTIMATE> DECREASED; <PLT MORPHOLOGY> NORMAL PLT MORPH; OVALOCYTES 1+
[2019-01-11 17:09] LABS: PLATELET COUNT 36 x10^3/uL (130-400)
[2019-01-12 00:54] VITALS: BP 88/46
[2019-01-12] MEDS: CARVEDILOL 6.25 MG TABLET PO SCH ×2 (05:24→18:07)
[2019-01-12 06:00] LABS: ANION GAP 6 mmol/L (5-15); CHLORIDE 106 mmol/L (98-107)
[2019-01-12 06:01] LABS: CREATININE 4.92 mg/dL (0.7-1.3)
[2019-01-12 07:54] LABS: BASOPHILS # (AUTO) 0.01 x10^3/uL (0-0.1); BASOPHILS % (AUTO) 1 % (0-1); EOSINOPHILS # (AUTO) 0.03 x10^3/uL (0-0.4); EOSINOPHILS % (AUTO) 2 % (1-7); LYMPHOCYTES # (AUTO) 0.48 x10^3/uL (1-3.4); LYMPHOCYTES % (AUTO) 24 % (22-44); MD SCAN; MEAN CORPUSCULAR HEMOGLOBIN 35.4 pg (27.5-34.5); MEAN CORPUSCULAR HGB CONC 33.7 g/dL (33.2-36.2); MEAN CORPUSCULAR VOLUME 105.1 fL (81-97); MEAN PLATELET VOLUME 9.1 fL (7.4-10.4); MONOCYTES # (AUTO) 0.23 x10^3/uL (0.2-0.8); MONOCYTES % (AUTO) 11 % (2-9); NEUTROPHILS # (AUTO) 1.25 x10^3/uL (1.8-6.8); NEUTROPHILS % (AUTO) 62 % (42-75); RED BLOOD COUNT 2.07 x10^6/uL (4.38-5.82); RED CELL DISTRIBUTION WIDTH 30.6 % (9.4-14.8)
[2019-01-12 08:00] VITALS: BP 85/49
[2019-01-12] MEDS: TEMPLATE NON-FORMULARY MED. (Lanthanum Carbonate** (Fosrenol**) 1,000 MG) HOMEMEDPO SCH ×3 (08:00→16:43)
[2019-01-12] MEDS: MIDODRINE 5 MG TABLET PO SCH ×3 (08:02→21:04)
[2019-01-12] MEDS: SUCRALFATE 1 GM/10 ML UDC PO SCH ×4 (08:02→21:03)
[2019-01-12] MEDS: LACTOBACILLUS CHEW TABLET PO SCH ×3 (08:03→21:04)
[2019-01-12] MEDS: TRIAMCINOLONE CRM 0.1%, 15GM TP SCH ×2 (08:03→21:05)
[2019-01-12] MEDS: PANTOPROZOLE 40MG TABLET PO SCH ×2 (08:03→16:42)
[2019-01-12] MEDS: FOLIC ACID 1 MG TABLET PO SCH (08:03)
[2019-01-12] MEDS: FLUDROCORTISONE 0.1 MG TABLET PO SCH (08:03)
[2019-01-12] MEDS: RIFAXIMIN 550 MG TABLET PO SCH ×2 (08:03→21:04)
[2019-01-12] MEDS: SODIUM CHLORIDE FLUSH 10ML SYR IVF SCH ×2 (08:03→20:56)
[2019-01-12 08:20] LABS: PLATELET COUNT 29 x10^3/uL (130-400)
[2019-01-12 13:27] VITALS: BP 97/58
[2019-01-12] MEDS: ARANESP 200 MCG/ML **ESRD SQ SCH (18:07)
[2019-01-12 18:58] VITALS: BP 91/49
[2019-01-13 00:54] VITALS: BP 104/50
[2019-01-13 06:05] VITALS: BP 90/50
[2019-01-13] MEDS: SUCRALFATE 1 GM/10 ML UDC PO SCH ×4 (06:06→20:40)
[2019-01-13] MEDS: CARVEDILOL 6.25 MG TABLET PO SCH ×2 (06:06→16:47)
[2019-01-13] MEDS: TEMPLATE NON-FORMULARY MED. (Lanthanum Carbonate** (Fosrenol**) 1,000 MG) HOMEMEDPO SCH ×3 (08:00→16:47)
[2019-01-13] MEDS: MIDODRINE 5 MG TABLET PO SCH ×3 (08:18→20:40)
[2019-01-13] MEDS: SODIUM CHLORIDE FLUSH 10ML SYR IVF SCH ×2 (08:19→20:41)
[2019-01-13] MEDS: ALBUMIN HUMAN 25% 100 ML IV PRN (09:53)
[2019-01-13 09:54] LABS: ANION GAP 5 mmol/L (5-15); CALCIUM 7.7 mg/dL (8.5-10.1); CHLORIDE 107 mmol/L (98-107); CREATININE 4.24 mg/dL (0.7-1.3)
[2019-01-13 10:09] LABS: MEAN CORPUSCULAR HEMOGLOBIN 36.1 pg (27.5-34.5); MEAN CORPUSCULAR HGB CONC 33.9 g/dL (33.2-36.2); MEAN CORPUSCULAR VOLUME 106.4 fL (81-97); MEAN PLATELET VOLUME 9.3 fL (7.4-10.4); RED BLOOD COUNT 2.03 x10^6/uL (4.38-5.82); RED CELL DISTRIBUTION WIDTH 30.3 % (9.4-14.8)
[2019-01-13 10:11] LABS: PLATELET COUNT 32 x10^3/uL (130-400)
[2019-01-13 10:13] LABS: MD YES
[2019-01-13 10:16] LABS: ANISOCYTOSIS 2+; BAND#(MANUAL) 0.03 x10^3/uL; BANDS%(MANUAL) 1 % (0-7); EOS#(MANUAL) 0.03 x10^3/uL (0.0-0.4); EOS% (MANUAL) 1 % (1-7); LYMPH#(MANUAL) 0.55 x10^3/uL (1-3.4); LYMPHS% (MANUAL) 22 % (22-44); MICROCYTOSIS 1+; MONOS#(MANUAL) 0.18 x10^3/uL (0.3-2.7); MONOS% (MANUAL) 7 % (2-9); OVALOCYTES 1+; SEG#(MANUAL) 1.73 x10^3/uL (1.8-6.8); SEGS% (MANUAL) 69 % (42-75)
[2019-01-13 10:17] LABS: <PLATELET ESTIMATE> DECREASED; LARGE PLATELETS 1+
[2019-01-13] MEDS: LACTOBACILLUS CHEW TABLET PO SCH ×3 (12:14→20:40)
[2019-01-13] MEDS: RIFAXIMIN 550 MG TABLET PO SCH ×2 (12:14→20:41)
[2019-01-13] MEDS: PANTOPROZOLE 40MG TABLET PO SCH ×2 (12:15→16:47)
[2019-01-13] MEDS: TRIAMCINOLONE CRM 0.1%, 15GM TP SCH ×2 (12:15→20:41)
[2019-01-13] MEDS: FLUDROCORTISONE 0.1 MG TABLET PO SCH (12:15)
[2019-01-13] MEDS: FOLIC ACID 1 MG TABLET PO SCH (12:15)
[2019-01-13 13:48] VITALS: BP 95/55
[2019-01-13 19:05] VITALS: BP 93/52
[2019-01-14 00:49] VITALS: BP 90/48
[2019-01-14] MEDS: CARVEDILOL 6.25 MG TABLET PO SCH ×2 (06:07→18:14)
[2019-01-14 08:00] VITALS: BP 95/55
[2019-01-14] MEDS: TEMPLATE NON-FORMULARY MED. (Lanthanum Carbonate** (Fosrenol**) 1,000 MG) HOMEMEDPO SCH ×3 (08:00→17:00)
[2019-01-14] MEDS: MIDODRINE 5 MG TABLET PO SCH ×3 (08:10→20:51)
[2019-01-14] MEDS: FLUDROCORTISONE 0.1 MG TABLET PO SCH (08:10)
[2019-01-14] MEDS: PANTOPROZOLE 40MG TABLET PO SCH ×2 (08:11→18:14)
[2019-01-14] MEDS: RIFAXIMIN 550 MG TABLET PO SCH ×2 (08:11→20:51)
[2019-01-14] MEDS: LACTOBACILLUS CHEW TABLET PO SCH ×3 (08:11→20:51)
[2019-01-14] MEDS: FOLIC ACID 1 MG TABLET PO SCH (08:13)
[2019-01-14] MEDS: SUCRALFATE 1 GM/10 ML UDC PO SCH ×4 (08:35→20:51)
[2019-01-14] MEDS: SODIUM CHLORIDE FLUSH 10ML SYR IVF SCH ×2 (08:36→21:00)
[2019-01-14] MEDS: TRIAMCINOLONE CRM 0.1%, 15GM TP SCH ×2 (08:36→21:00)
[2019-01-14 08:40] LABS: ANION GAP 4 mmol/L (5-15); CHLORIDE 106 mmol/L (98-107); CREATININE 4.87 mg/dL (0.7-1.3)
[2019-01-14 08:43] LABS: MEAN CORPUSCULAR HEMOGLOBIN 34.6 pg (27.5-34.5); MEAN CORPUSCULAR HGB CONC 31.8 g/dL (33.2-36.2); MEAN CORPUSCULAR VOLUME 108.9 fL (81-97); MEAN PLATELET VOLUME 9.6 fL (7.4-10.4); RED BLOOD COUNT 1.96 x10^6/uL (4.38-5.82); RED CELL DISTRIBUTION WIDTH 30.3 % (9.4-14.8)
[2019-01-14 08:49] LABS: PLATELET COUNT 30 x10^3/uL (130-400)
[2019-01-14 09:00] LABS: MD YES
[2019-01-14 09:04] LABS: BAND#(MANUAL) 0.07 x10^3/uL; BANDS%(MANUAL) 3 % (0-7); BASOS#(MANUAL) 0.04 x10^3/uL (0-0.1); BASOS% (MANUAL) 2 % (0-1); EOS#(MANUAL) 0.07 x10^3/uL (0.0-0.4); EOS% (MANUAL) 3 % (1-7); LYMPH#(MANUAL) 0.59 x10^3/uL (1-3.4); LYMPHS% (MANUAL) 27 % (22-44); METAMYELOCYTES# (MANUAL) 0.04 x10^3/uL (0-0); METAMYELOCYTES% (MANUAL) 2 % (0-1); MONOS#(MANUAL) 0.13 x10^3/uL (0.3-2.7); MONOS% (MANUAL) 6 % (2-9); SEG#(MANUAL) 1.25 x10^3/uL (1.8-6.8); SEGS% (MANUAL) 57 % (42-75)
[2019-01-14 09:06] LABS: <PLATELET ESTIMATE> DECREASED; ANISOCYTOSIS 2+; MICROCYTOSIS 1+; OVALOCYTES 1+
[2019-01-14 09:07] LABS: LARGE PLATELETS 1+
[2019-01-14 15:45] VITALS: BP 105/60
[2019-01-14 18:13] VITALS: BP 107/65
[2019-01-14 19:14] VITALS: BP 108/62
[2019-01-15] VITALS (8 sets, daily range): BP systolic 91–110; BP diastolic 54–63
[2019-01-15] MEDS: CARVEDILOL 6.25 MG TABLET PO SCH ×2 (06:08→17:18)
[2019-01-15] MEDS: TEMPLATE NON-FORMULARY MED. (Lanthanum Carbonate** (Fosrenol**) 1,000 MG) HOMEMEDPO SCH ×3 (08:00→16:29)
[2019-01-15] MEDS: MIDODRINE 5 MG TABLET PO SCH ×3 (08:39→21:16)
[2019-01-15] MEDS: RIFAXIMIN 550 MG TABLET PO SCH ×2 (08:39→21:16)
[2019-01-15] MEDS: FOLIC ACID 1 MG TABLET PO SCH (08:39)
[2019-01-15] MEDS: FLUDROCORTISONE 0.1 MG TABLET PO SCH (08:39)
[2019-01-15] MEDS: LACTOBACILLUS CHEW TABLET PO SCH ×3 (08:39→21:16)
[2019-01-15] MEDS: SUCRALFATE 1 GM/10 ML UDC PO SCH ×4 (08:39→21:15)
[2019-01-15] MEDS: TRIAMCINOLONE CRM 0.1%, 15GM TP SCH ×2 (08:40→21:42)
[2019-01-15] MEDS: SODIUM CHLORIDE FLUSH 10ML SYR IVF SCH ×2 (08:41→21:42)
[2019-01-15] MEDS: PANTOPROZOLE 40MG TABLET PO SCH ×2 (08:56→16:28)
[2019-01-16 02:24] VITALS: BP 87/51
[2019-01-16 05:45] LABS: MEAN CORPUSCULAR HEMOGLOBIN 34.9 pg (27.5-34.5); MEAN CORPUSCULAR HGB CONC 32.9 g/dL (33.2-36.2); MEAN PLATELET VOLUME 8.9 fL (7.4-10.4); RED BLOOD COUNT 2.11 x10^6/uL (4.38-5.82); RED CELL DISTRIBUTION WIDTH 30.8 % (9.4-14.8)
[2019-01-16 05:56] LABS: PLATELET COUNT 32 x10^3/uL (130-400)
[2019-01-16] MEDS: CARVEDILOL 6.25 MG TABLET PO SCH ×2 (06:00→17:01)
[2019-01-16 06:05] LABS: MD YES
[2019-01-16 06:10] LABS: <PLATELET ESTIMATE> DECREASED; ANISOCYTOSIS 2+; EOS#(MANUAL) 0.16 x10^3/uL (0.0-0.4); EOS% (MANUAL) 7 % (1-7); LYMPHS% (MANUAL) 26 % (22-44); METAMYELOCYTES# (MANUAL) 0.02 x10^3/uL (0-0); METAMYELOCYTES% (MANUAL) 1 % (0-1); MONOS% (MANUAL) 13 % (2-9); OVALOCYTES 1+; SEG#(MANUAL) 1.22 x10^3/uL (1.8-6.8); SEGS% (MANUAL) 53 % (42-75)
[2019-01-16 06:11] LABS: LARGE PLATELETS 1+
[2019-01-16 06:54] VITALS: BP 93/54
[2019-01-16] MEDS: TEMPLATE NON-FORMULARY MED. (Lanthanum Carbonate** (Fosrenol**) 1,000 MG) HOMEMEDPO SCH ×3 (08:00→17:03)
[2019-01-16] MEDS: SUCRALFATE 1 GM/10 ML UDC PO SCH ×4 (08:09→20:45)
[2019-01-16] MEDS: PANTOPROZOLE 40MG TABLET PO SCH ×2 (08:10→17:01)
[2019-01-16] MEDS: FLUDROCORTISONE 0.1 MG TABLET PO SCH (08:10)
[2019-01-16] MEDS: FOLIC ACID 1 MG TABLET PO SCH (08:10)
[2019-01-16] MEDS: LACTOBACILLUS CHEW TABLET PO SCH ×3 (08:10→20:45)
[2019-01-16] MEDS: RIFAXIMIN 550 MG TABLET PO SCH ×2 (08:10→20:45)
[2019-01-16] MEDS: MIDODRINE 5 MG TABLET PO SCH ×3 (08:10→20:45)
[2019-01-16] MEDS: TRIAMCINOLONE CRM 0.1%, 15GM TP SCH ×2 (08:11→20:46)
[2019-01-16] MEDS: SODIUM CHLORIDE FLUSH 10ML SYR IVF SCH ×2 (08:11→20:45)
[2019-01-16 13:22] VITALS: BP 93/55
[2019-01-16 18:49] VITALS: BP 82/49
[2019-01-17] VITALS (7 sets, daily range): BP systolic 77–97; BP diastolic 39–57
[2019-01-17] MEDS: CARVEDILOL 6.25 MG TABLET PO SCH ×2 (05:34→16:44)
[2019-01-17] MEDS: MIDODRINE 5 MG TABLET PO SCH ×3 (08:00→21:13)
[2019-01-17] MEDS: TEMPLATE NON-FORMULARY MED. (Lanthanum Carbonate** (Fosrenol**) 1,000 MG) HOMEMEDPO SCH ×3 (08:00→16:44)
[2019-01-17] MEDS: SUCRALFATE 1 GM/10 ML UDC PO SCH ×4 (08:01→21:12)
[2019-01-17] MEDS: PANTOPROZOLE 40MG TABLET PO SCH ×2 (08:01→16:43)
[2019-01-17] MEDS: SODIUM CHLORIDE FLUSH 10ML SYR IVF SCH ×2 (08:01→21:00)
[2019-01-17] MEDS: FOLIC ACID 1 MG TABLET PO SCH (08:01)
[2019-01-17] MEDS: RIFAXIMIN 550 MG TABLET PO SCH ×2 (08:01→21:12)
[2019-01-17] MEDS: FLUDROCORTISONE 0.1 MG TABLET PO SCH (08:01)
[2019-01-17] MEDS: LACTOBACILLUS CHEW TABLET PO SCH ×3 (08:01→21:12)
[2019-01-17] MEDS: TRIAMCINOLONE CRM 0.1%, 15GM TP SCH ×2 (08:02→21:13)
[2019-01-17 10:53] LABS: MEAN CORPUSCULAR HEMOGLOBIN 35.3 pg (27.5-34.5); MEAN CORPUSCULAR HGB CONC 33.2 g/dL (33.2-36.2); MEAN CORPUSCULAR VOLUME 106.3 fL (81-97); MEAN PLATELET VOLUME 9.1 fL (7.4-10.4); RED BLOOD COUNT 1.98 x10^6/uL (4.38-5.82); RED CELL DISTRIBUTION WIDTH 29.7 % (9.4-14.8)
[2019-01-17 11:04] LABS: ALBUMIN 2.3 g/dL (3.4-5.0); ANION GAP 5 mmol/L (5-15); CALCIUM 8.1 mg/dL (8.5-10.1); CHLORIDE 107 mmol/L (98-107); CREATININE 5.59 mg/dL (0.7-1.3); IRON LEVEL 58 mcg/dL (65-175)
[2019-01-17 11:08] LABS: % IRON SATURATION 39 % (20-55); TOTAL IRON BINDING CAPACITY 148 mcg/dL (250-450)
[2019-01-17 11:33] LABS: MD YES
[2019-01-17 11:36] LABS: BAND#(MANUAL) 0.05 x10^3/uL; BANDS%(MANUAL) 2 % (0-7); EOS#(MANUAL) 0.23 x10^3/uL (0.0-0.4); EOS% (MANUAL) 10 % (1-7); LYMPH#(MANUAL) 0.74 x10^3/uL (1-3.4); LYMPHS% (MANUAL) 32 % (22-44); MONOS#(MANUAL) 0.14 x10^3/uL (0.3-2.7); MONOS% (MANUAL) 6 % (2-9); SEG#(MANUAL) 1.15 x10^3/uL (1.8-6.8); SEGS% (MANUAL) 50 % (42-75)
[2019-01-17 11:37] LABS: <PLATELET ESTIMATE> DECREASED; <PLT MORPHOLOGY> NORMAL PLT MORPH; ANISOCYTOSIS 2+; HYPOCHROMIA 1+; MICROCYTOSIS 1+; TEAR DROPS 1+
[2019-01-17 11:40] LABS: PLATELET COUNT 38 x10^3/uL (130-400)
[2019-01-18] VITALS (8 sets, daily range): BP systolic 84–99; BP diastolic 37–56
[2019-01-18] MEDS: CARVEDILOL 6.25 MG TABLET PO SCH ×2 (05:38→16:45)
[2019-01-18] MEDS: SODIUM CHLORIDE FLUSH 10ML SYR IVF SCH ×2 (08:00→21:00)
[2019-01-18] MEDS: TEMPLATE NON-FORMULARY MED. (Lanthanum Carbonate** (Fosrenol**) 1,000 MG) HOMEMEDPO SCH ×2 (08:00→12:00)
[2019-01-18] MEDS: SUCRALFATE 1 GM/10 ML UDC PO SCH ×4 (08:05→22:15)
[2019-01-18] MEDS: MIDODRINE 5 MG TABLET PO SCH ×3 (08:06→22:16)
[2019-01-18 08:35] LABS: ALBUMIN 2.3 g/dL (3.4-5.0); ANION GAP 6 mmol/L (5-15); CALCIUM 8.1 mg/dL (8.5-10.1); CHLORIDE 108 mmol/L (98-107); CREATININE 5.34 mg/dL (0.7-1.3)
[2019-01-18] MEDS: TRIAMCINOLONE CRM 0.1%, 15GM TP SCH ×2 (08:57→22:16)
[2019-01-18 09:21] LABS: MEAN CORPUSCULAR HEMOGLOBIN 36.1 pg (27.5-34.5); MEAN CORPUSCULAR HGB CONC 34.3 g/dL (33.2-36.2); MEAN PLATELET VOLUME 8.6 fL (7.4-10.4); RED BLOOD COUNT 1.91 x10^6/uL (4.38-5.82); RED CELL DISTRIBUTION WIDTH 29.8 % (9.4-14.8)
[2019-01-18 09:22] LABS: PLATELET COUNT 40 x10^3/uL (130-400)
[2019-01-18 09:57] LABS: BASOPHILS # (AUTO) 0.01 x10^3/uL (0-0.1); BASOPHILS % (AUTO) 1 % (0-1); EOSINOPHILS # (AUTO) 0.11 x10^3/uL (0-0.4); EOSINOPHILS % (AUTO) 4 % (1-7); LYMPHOCYTES # (AUTO) 0.77 x10^3/uL (1-3.4); LYMPHOCYTES % (AUTO) 31 % (22-44); MD SCAN; MONOCYTES # (AUTO) 0.21 x10^3/uL (0.2-0.8); MONOCYTES % (AUTO) 8 % (2-9); NEUTROPHILS % (AUTO) 56 % (42-75)
[2019-01-18] MEDS: FOLIC ACID 1 MG TABLET PO SCH (12:05)
[2019-01-18] MEDS: RIFAXIMIN 550 MG TABLET PO SCH ×2 (12:05→22:15)
[2019-01-18] MEDS: FLUDROCORTISONE 0.1 MG TABLET PO SCH (12:05)
[2019-01-18] MEDS: PANTOPROZOLE 40MG TABLET PO SCH ×2 (12:05→16:45)
[2019-01-18] MEDS: LACTOBACILLUS CHEW TABLET PO SCH ×3 (12:05→22:15)
[2019-01-18] MEDS: LANTHANUM CARBONATE 500 MG HOMEMEDPO SCH (16:45)
[2019-01-19 01:35] VITALS: BP 90/51
[2019-01-19] MEDS: CARVEDILOL 6.25 MG TABLET PO SCH ×2 (05:13→17:10)
[2019-01-19 07:10] VITALS: BP 105/60
[2019-01-19] MEDS: LANTHANUM CARBONATE 500 MG HOMEMEDPO SCH ×3 (08:00→17:00)
[2019-01-19] MEDS: FLUDROCORTISONE 0.1 MG TABLET PO SCH (08:06)
[2019-01-19] MEDS: LACTOBACILLUS CHEW TABLET PO SCH ×3 (08:06→22:23)
[2019-01-19] MEDS: RIFAXIMIN 550 MG TABLET PO SCH ×2 (08:06→22:23)
[2019-01-19] MEDS: SUCRALFATE 1 GM/10 ML UDC PO SCH ×4 (08:06→22:23)
[2019-01-19] MEDS: FOLIC ACID 1 MG TABLET PO SCH (08:06)
[2019-01-19] MEDS: PANTOPROZOLE 40MG TABLET PO SCH ×2 (08:06→17:09)
[2019-01-19] MEDS: MIDODRINE 5 MG TABLET PO SCH ×3 (08:07→22:23)
[2019-01-19] MEDS: TRIAMCINOLONE CRM 0.1%, 15GM TP SCH ×2 (08:07→22:24)
[2019-01-19] MEDS: SODIUM CHLORIDE FLUSH 10ML SYR IVF SCH ×2 (08:07→21:00)
[2019-01-19 12:15] VITALS: BP 94/41
[2019-01-19 17:08] VITALS: BP 114/51
[2019-01-19 19:45] VITALS: BP 108/41
[2019-01-19] MEDS: ARANESP 200 MCG/ML **ESRD SQ SCH (22:22)
[2019-01-20 01:35] VITALS: BP 101/44
[2019-01-20 05:53] LABS: CHLORIDE 106 mmol/L (98-107)
[2019-01-20 05:59] LABS: MEAN CORPUSCULAR HEMOGLOBIN 34.6 pg (27.5-34.5); MEAN CORPUSCULAR HGB CONC 32.7 g/dL (33.2-36.2); MEAN CORPUSCULAR VOLUME 105.7 fL (81-97); RED BLOOD COUNT 2.05 x10^6/uL (4.38-5.82)
[2019-01-20 06:00] LABS: ALANINE AMINOTRANSFERASE 11 U/L (12-78); ALBUMIN 2.3 g/dL (3.4-5.0); ALKALINE PHOSPHATASE 93 U/L (45-117); ANION GAP 7 mmol/L (5-15); BILIRUBIN,TOTAL 1.4 mg/dL (0.2-1.0); CALCIUM 8.2 mg/dL (8.5-10.1); TOTAL PROTEIN 4.8 g/dL (6.4-8.2)
[2019-01-20] MEDS: CARVEDILOL 6.25 MG TABLET PO SCH ×2 (06:31→17:02)
[2019-01-20 06:39] LABS: MEAN PLATELET VOLUME 9.1 fL (7.4-10.4)
[2019-01-20 06:40] LABS: BASOPHILS # (AUTO) 0.02 x10^3/uL (0-0.1); BASOPHILS % (AUTO) 1 % (0-1); EOSINOPHILS # (AUTO) 0.15 x10^3/uL (0-0.4); EOSINOPHILS % (AUTO) 6 % (1-7); LYMPHOCYTES # (AUTO) 0.68 x10^3/uL (1-3.4); LYMPHOCYTES % (AUTO) 28 % (22-44); MD SCAN; MONOCYTES # (AUTO) 0.24 x10^3/uL (0.2-0.8); MONOCYTES % (AUTO) 10 % (2-9); NEUTROPHILS # (AUTO) 1.39 x10^3/uL (1.8-6.8); NEUTROPHILS % (AUTO) 56 % (42-75); PLATELET COUNT 39 x10^3/uL (130-400)
[2019-01-20] MEDS: LANTHANUM CARBONATE 500 MG HOMEMEDPO SCH ×3 (08:00→17:00)
[2019-01-20 08:13] VITALS: BP 100/50
[2019-01-20] MEDS: LACTOBACILLUS CHEW TABLET PO SCH ×3 (08:37→20:51)
[2019-01-20] MEDS: PANTOPROZOLE 40MG TABLET PO SCH ×2 (08:37→17:02)
[2019-01-20] MEDS: MIDODRINE 5 MG TABLET PO SCH ×3 (08:37→20:51)
[2019-01-20] MEDS: FOLIC ACID 1 MG TABLET PO SCH (08:37)
[2019-01-20] MEDS: SUCRALFATE 1 GM/10 ML UDC PO SCH ×4 (08:38→20:50)
[2019-01-20] MEDS: TRIAMCINOLONE CRM 0.1%, 15GM TP SCH ×2 (09:00→20:51)
[2019-01-20] MEDS: RIFAXIMIN 550 MG TABLET PO SCH ×2 (09:00→20:51)
[2019-01-20] MEDS: FLUDROCORTISONE 0.1 MG TABLET PO SCH (09:00)
[2019-01-20] MEDS: SODIUM CHLORIDE FLUSH 10ML SYR IVF SCH ×2 (09:00→20:56)
[2019-01-20] MEDS: ALBUMIN HUMAN 25% 100 ML IV PRN (10:15)
[2019-01-20 18:10] VITALS: BP 99/40
[2019-01-20 20:29] VITALS: BP 110/55
[2019-01-21] VITALS (7 sets, daily range): BP systolic 101–121; BP diastolic 36–46
[2019-01-21] MEDS: CARVEDILOL 6.25 MG TABLET PO SCH ×2 (05:41→17:42)
[2019-01-21] MEDS: LANTHANUM CARBONATE 500 MG HOMEMEDPO SCH ×3 (08:00→17:00)
[2019-01-21] MEDS: SODIUM CHLORIDE FLUSH 10ML SYR IVF SCH ×2 (09:00→21:57)
[2019-01-21] MEDS: FOLIC ACID 1 MG TABLET PO SCH (09:00)
[2019-01-21] MEDS: TRIAMCINOLONE CRM 0.1%, 15GM TP SCH ×2 (09:00→21:58)
[2019-01-21] MEDS: SUCRALFATE 1 GM/10 ML UDC PO SCH ×4 (09:55→21:57)
[2019-01-21] MEDS: MIDODRINE 5 MG TABLET PO SCH ×3 (09:55→21:58)
[2019-01-21] MEDS: FLUDROCORTISONE 0.1 MG TABLET PO SCH (09:55)
[2019-01-21] MEDS: LACTOBACILLUS CHEW TABLET PO SCH ×3 (09:55→21:57)
[2019-01-21] MEDS: RIFAXIMIN 550 MG TABLET PO SCH ×2 (09:55→21:57)
[2019-01-21] MEDS: PANTOPROZOLE 40MG TABLET PO SCH ×2 (09:56→17:42)
[2019-01-21] MEDS: HYDROCORTISONE 25 MG SUPP PR SCH ×2 (13:27→21:00)
[2019-01-22 01:12] VITALS: BP 106/32
[2019-01-22 06:27] LABS: CHLORIDE 106 mmol/L (98-107)
[2019-01-22 06:28] LABS: MEAN CORPUSCULAR HEMOGLOBIN 33.8 pg (27.5-34.5); MEAN CORPUSCULAR HGB CONC 32.9 g/dL (33.2-36.2); MEAN CORPUSCULAR VOLUME 102.9 fL (81-97); MEAN PLATELET VOLUME 9.6 fL (7.4-10.4); RED BLOOD COUNT 2.09 x10^6/uL (4.38-5.82); RED CELL DISTRIBUTION WIDTH 30.8 % (9.4-14.8)
[2019-01-22 06:30] LABS: PLATELET COUNT 39 x10^3/uL (130-400)
[2019-01-22 06:36] LABS: ALBUMIN 2.5 g/dL (3.4-5.0); ANION GAP 7 mmol/L (5-15); CALCIUM 8.2 mg/dL (8.5-10.1); CREATININE 5.74 mg/dL (0.7-1.3)
[2019-01-22] MEDS: SUCRALFATE 1 GM/10 ML UDC PO SCH ×4 (07:00→22:16)
[2019-01-22 07:06] LABS: MD YES
[2019-01-22 07:11] LABS: BAND#(MANUAL) 0.07 x10^3/uL; BANDS%(MANUAL) 3 % (0-7); EOS% (MANUAL) 4 % (1-7); LYMPH#(MANUAL) 0.48 x10^3/uL (1-3.4); LYMPHS% (MANUAL) 20 % (22-44); MONOS#(MANUAL) 0.07 x10^3/uL (0.3-2.7); MONOS% (MANUAL) 3 % (2-9); REACTIVE LYMPHS # (MANUAL) 0.02 x10^3/uL (0-0); REACTIVE LYMPHS % (MANUAL) 1 % (0-0); SEG#(MANUAL) 1.66 x10^3/uL (1.8-6.8); SEGS% (MANUAL) 69 % (42-75)
[2019-01-22 07:12] LABS: ANISOCYTOSIS 2+
[2019-01-22 07:13] LABS: <PLATELET ESTIMATE> DECREASED; <PLT MORPHOLOGY> NORMAL PLT MORPH; OVALOCYTES 1+; SPHEROCYTES 1+
[2019-01-22 07:21] VITALS: BP 109/45
[2019-01-22] MEDS: CARVEDILOL 6.25 MG TABLET PO SCH ×2 (07:48→17:23)
[2019-01-22] MEDS: LANTHANUM CARBONATE 500 MG HOMEMEDPO SCH ×3 (07:48→17:00)
[2019-01-22] MEDS: MIDODRINE 5 MG TABLET PO SCH ×3 (07:48→22:17)
[2019-01-22] MEDS: TRIAMCINOLONE CRM 0.1%, 15GM TP SCH ×2 (12:00→22:18)
[2019-01-22] MEDS: HYDROCORTISONE 25 MG SUPP PR SCH ×2 (12:00→22:16)
[2019-01-22] MEDS: LACTOBACILLUS CHEW TABLET PO SCH ×3 (12:29→22:17)
[2019-01-22] MEDS: FLUDROCORTISONE 0.1 MG TABLET PO SCH (12:29)
[2019-01-22] MEDS: FOLIC ACID 1 MG TABLET PO SCH (12:29)
[2019-01-22] MEDS: PANTOPROZOLE 40MG TABLET PO SCH ×2 (12:29→17:22)
[2019-01-22] MEDS: RIFAXIMIN 550 MG TABLET PO SCH ×2 (12:29→22:17)
[2019-01-22] MEDS: SODIUM CHLORIDE FLUSH 10ML SYR IVF SCH ×2 (12:31→22:17)
[2019-01-22 15:02] VITALS: BP 104/56
[2019-01-22 17:26] VITALS: BP 105/50
[2019-01-22 19:23] VITALS: BP 125/40
[2019-01-23 01:56] VITALS: BP 112/46
[2019-01-23 06:27] VITALS: BP 96/36
[2019-01-23 06:46] VITALS: BP 109/36
[2019-01-23] MEDS: CARVEDILOL 6.25 MG TABLET PO SCH ×2 (06:52→17:29)
[2019-01-23] MEDS: LANTHANUM CARBONATE 500 MG HOMEMEDPO SCH ×3 (08:00→17:00)
[2019-01-23] MEDS: TRIAMCINOLONE CRM 0.1%, 15GM TP SCH ×2 (09:00→21:30)
[2019-01-23] MEDS: SODIUM CHLORIDE FLUSH 10ML SYR IVF SCH ×2 (09:00→21:29)
[2019-01-23] MEDS: SUCRALFATE 1 GM/10 ML UDC PO SCH ×4 (10:33→21:28)
[2019-01-23] MEDS: FLUDROCORTISONE 0.1 MG TABLET PO SCH (10:34)
[2019-01-23] MEDS: LACTOBACILLUS CHEW TABLET PO SCH ×3 (10:34→21:29)
[2019-01-23] MEDS: MIDODRINE 5 MG TABLET PO SCH ×3 (10:34→21:28)
[2019-01-23] MEDS: RIFAXIMIN 550 MG TABLET PO SCH ×2 (10:34→21:29)
[2019-01-23] MEDS: PANTOPROZOLE 40MG TABLET PO SCH ×2 (10:34→17:29)
[2019-01-23] MEDS: FOLIC ACID 1 MG TABLET PO SCH (10:34)
[2019-01-23] MEDS: HYDROCORTISONE 25 MG SUPP PR SCH ×2 (10:34→21:28)
[2019-01-23 14:56] VITALS: BP 105/38
[2019-01-23 20:49] VITALS: BP 119/38
[2019-01-24 01:36] VITALS: BP 105/37
[2019-01-24 05:54] VITALS: BP 120/37
[2019-01-24] MEDS: CARVEDILOL 6.25 MG TABLET PO SCH ×2 (05:58→17:00)
[2019-01-24 08:00] VITALS: BP 109/44
[2019-01-24] MEDS: LANTHANUM CARBONATE 500 MG HOMEMEDPO SCH ×3 (08:00→17:00)
[2019-01-24] MEDS: PANTOPROZOLE 40MG TABLET PO SCH ×2 (08:27→17:01)
[2019-01-24] MEDS: SUCRALFATE 1 GM/10 ML UDC PO SCH ×4 (08:27→21:53)
[2019-01-24] MEDS: FOLIC ACID 1 MG TABLET PO SCH (08:28)
[2019-01-24] MEDS: LACTOBACILLUS CHEW TABLET PO SCH ×3 (08:28→21:53)
[2019-01-24] MEDS: RIFAXIMIN 550 MG TABLET PO SCH ×2 (08:28→21:53)
[2019-01-24] MEDS: HYDROCORTISONE 25 MG SUPP PR SCH ×2 (08:28→22:01)
[2019-01-24] MEDS: SODIUM CHLORIDE FLUSH 10ML SYR IVF SCH ×2 (08:28→21:53)
[2019-01-24] MEDS: FLUDROCORTISONE 0.1 MG TABLET PO SCH (08:28)
[2019-01-24] MEDS: MIDODRINE 5 MG TABLET PO SCH ×3 (08:29→21:54)
[2019-01-24] MEDS: TRIAMCINOLONE CRM 0.1%, 15GM TP SCH ×2 (08:29→21:53)
[2019-01-24 14:15] VITALS: BP 102/34
[2019-01-24 18:38] VITALS: BP 99/40
[2019-01-24] MEDS: TEMAZEPAM 15 MG CAPSULE PO PRN (23:55)
[2019-01-25] VITALS (10 sets, daily range): BP systolic 91–118; BP diastolic 35–47
[2019-01-25] MEDS: CARVEDILOL 6.25 MG TABLET PO SCH ×2 (06:11→17:13)
[2019-01-25] MEDS: SUCRALFATE 1 GM/10 ML UDC PO SCH ×4 (07:00→20:44)
[2019-01-25] MEDS: PANTOPROZOLE 40MG TABLET PO SCH ×2 (07:30→13:21)
[2019-01-25] MEDS: LANTHANUM CARBONATE 500 MG HOMEMEDPO SCH ×3 (08:00→17:12)
[2019-01-25 08:09] LABS: MEAN CORPUSCULAR HEMOGLOBIN 34.5 pg (27.5-34.5); MEAN CORPUSCULAR HGB CONC 32.8 g/dL (33.2-36.2); MEAN CORPUSCULAR VOLUME 105.3 fL (81-97); MEAN PLATELET VOLUME 9.2 fL (7.4-10.4); RED BLOOD COUNT 1.87 x10^6/uL (4.38-5.82); RED CELL DISTRIBUTION WIDTH 30.1 % (9.4-14.8)
[2019-01-25 08:18] LABS: ALANINE AMINOTRANSFERASE 11 U/L (12-78); ALBUMIN 2.3 g/dL (3.4-5.0); ANION GAP 6 mmol/L (5-15); CALCIUM 8.1 mg/dL (8.5-10.1); CHLORIDE 108 mmol/L (98-107)
[2019-01-25 08:19] LABS: PLATELET COUNT 37 x10^3/uL (130-400)
[2019-01-25 08:20] LABS: ALKALINE PHOSPHATASE 93 U/L (45-117); BILIRUBIN,TOTAL 1.2 mg/dL (0.2-1.0); TOTAL PROTEIN 4.7 g/dL (6.4-8.2)
[2019-01-25 08:35] LABS: MD YES
[2019-01-25 08:39] LABS: BASOS#(MANUAL) 0.03 x10^3/uL (0-0.1); BASOS% (MANUAL) 1 % (0-1); EOS#(MANUAL) 0.08 x10^3/uL (0.0-0.4); EOS% (MANUAL) 3 % (1-7); LYMPH#(MANUAL) 0.55 x10^3/uL (1-3.4); LYMPHS% (MANUAL) 21 % (22-44); MONOS#(MANUAL) 0.03 x10^3/uL (0.3-2.7); MONOS% (MANUAL) 1 % (2-9); SEG#(MANUAL) 1.92 x10^3/uL (1.8-6.8); SEGS% (MANUAL) 74 % (42-75)
[2019-01-25 08:40] LABS: <PLATELET ESTIMATE> DECREASED; <PLT MORPHOLOGY> NORMAL PLT MORPH; ANISOCYTOSIS 2+; OVALOCYTES 1+; POLYCHROMASIA 1+; SPHEROCYTES 1+
[2019-01-25] MEDS: TRIAMCINOLONE CRM 0.1%, 15GM TP SCH ×2 (09:00→20:45)
[2019-01-25] MEDS: SODIUM CHLORIDE FLUSH 10ML SYR IVF SCH ×2 (09:00→20:45)
[2019-01-25] MEDS: RIFAXIMIN 550 MG TABLET PO SCH ×2 (13:21→20:44)
[2019-01-25] MEDS: FOLIC ACID 1 MG TABLET PO SCH (13:21)
[2019-01-25] MEDS: LACTOBACILLUS CHEW TABLET PO SCH ×3 (13:21→20:44)
[2019-01-25] MEDS: MIDODRINE 5 MG TABLET PO SCH ×3 (13:21→20:45)
[2019-01-25] MEDS: HYDROCORTISONE 25 MG SUPP PR SCH ×3 (13:22→20:47)
[2019-01-25] MEDS: FLUDROCORTISONE 0.1 MG TABLET PO SCH (13:22)
[2019-01-26] MEDS: CARVEDILOL 6.25 MG TABLET PO SCH ×2 (05:58→17:06)
[2019-01-26] MEDS: LANTHANUM CARBONATE 500 MG HOMEMEDPO SCH ×3 (08:00→17:00)
[2019-01-26 08:38] VITALS: BP_SYST 93; BP_DIAS 103; BP_DIAS 33
[2019-01-26] MEDS ORDERED: LIDODERM 5% PATCH TD ONE (08:57)
[2019-01-26] MEDS: HYDROCORTISONE 25 MG SUPP PR SCH ×2 (09:00→20:17)
[2019-01-26] MEDS: SODIUM CHLORIDE FLUSH 10ML SYR IVF SCH ×2 (09:00→20:16)
[2019-01-26] MEDS: LIDODERM 5% PATCH TD SCH (09:03)
[2019-01-26] MEDS: PANTOPROZOLE 40MG TABLET PO SCH ×2 (09:04→17:05)
[2019-01-26] MEDS: MIDODRINE 5 MG TABLET PO SCH ×3 (09:04→20:17)
[2019-01-26] MEDS: FLUDROCORTISONE 0.1 MG TABLET PO SCH (09:04)
[2019-01-26] MEDS: RIFAXIMIN 550 MG TABLET PO SCH ×2 (09:04→20:17)
[2019-01-26] MEDS: LACTOBACILLUS CHEW TABLET PO SCH ×3 (09:04→20:17)
[2019-01-26] MEDS: FOLIC ACID 1 MG TABLET PO SCH (09:04)
[2019-01-26] MEDS: SUCRALFATE 1 GM/10 ML UDC PO SCH ×4 (09:04→20:12)
[2019-01-26] MEDS: TRIAMCINOLONE CRM 0.1%, 15GM TP SCH ×2 (10:48→20:32)
[2019-01-26 13:23] VITALS: BP 97/39
[2019-01-26] MEDS: ARANESP 200 MCG/ML **ESRD SQ SCH (20:33)
[2019-01-26] MEDS ORDERED: LIDODERM REMOVE PATCH NOTE XX SCH (21:00)
[2019-01-26 21:03] VITALS: BP 94/32
[2019-01-27 00:18] VITALS: BP 107/35
[2019-01-27] MEDS: CARVEDILOL 6.25 MG TABLET PO SCH (05:45)
[2019-01-27] MEDS: SUCRALFATE 1 GM/10 ML UDC PO SCH ×2 (07:00→11:54)
[2019-01-27] MEDS: MIDODRINE 5 MG TABLET PO SCH (08:16)
[2019-01-27 08:44] LABS: MEAN CORPUSCULAR HEMOGLOBIN 33.7 pg (27.5-34.5); MEAN CORPUSCULAR HGB CONC 32.2 g/dL (33.2-36.2); MEAN CORPUSCULAR VOLUME 104.6 fL (81-97); MEAN PLATELET VOLUME 9.2 fL (7.4-10.4); RED BLOOD COUNT 2.01 x10^6/uL (4.38-5.82)
[2019-01-27 08:50] LABS: ALBUMIN 2.4 g/dL (3.4-5.0); ANION GAP 5 mmol/L (5-15); CALCIUM 7.9 mg/dL (8.5-10.1); CHLORIDE 107 mmol/L (98-107)
[2019-01-27 08:53] LABS: ALANINE AMINOTRANSFERASE 8 U/L (12-78); ALKALINE PHOSPHATASE 85 U/L (45-117); BILIRUBIN,TOTAL 1.5 mg/dL (0.2-1.0); CREATININE 4.58 mg/dL (0.7-1.3); TOTAL PROTEIN 4.8 g/dL (6.4-8.2)
[2019-01-27] MEDS: SODIUM CHLORIDE FLUSH 10ML SYR IVF SCH (09:00)
[2019-01-27 09:11] LABS: PLATELET COUNT 39 x10^3/uL (130-400)
[2019-01-27 09:14] LABS: BASOPHILS # (AUTO) 0.02 x10^3/uL (0-0.1); BASOPHILS % (AUTO) 1 % (0-1); EOSINOPHILS # (AUTO) 0.11 x10^3/uL (0-0.4); EOSINOPHILS % (AUTO) 4 % (1-7); LYMPHOCYTES % (AUTO) 22 % (22-44); MD SCAN; MONOCYTES # (AUTO) 0.19 x10^3/uL (0.2-0.8); MONOCYTES % (AUTO) 7 % (2-9); NEUTROPHILS # (AUTO) 1.84 x10^3/uL (1.8-6.8); NEUTROPHILS % (AUTO) 67 % (42-75)
[2019-01-27 10:25] VITALS: BP 100/36
[2019-01-27 10:45] VITALS: BP 103/33
[2019-01-27] MEDS ORDERED: CARV6.2512 PO (10:58)
[2019-01-27] MEDS ORDERED: ACET325T14 PO (10:58)
[2019-01-27] MEDS ORDERED: ACID1TAB7 PO (10:58)
[2019-01-27] MEDS ORDERED: LANTHANUM CARBONATE HOMEMEDPO (10:58)
[2019-01-27] MEDS ORDERED: TRIA15CR61 TP (10:58)
[2019-01-27] MEDS ORDERED: SUCR1ORA5 PO (10:58)
[2019-01-27] MEDS ORDERED: HYDR25SU3 PR (10:58)
[2019-01-27 11:16] VITALS: BP 104/39
[2019-01-27] MEDS: RIFAXIMIN 550 MG TABLET PO SCH (11:54)
[2019-01-27] MEDS: FLUDROCORTISONE 0.1 MG TABLET PO SCH (11:54)
[2019-01-27] MEDS: PANTOPROZOLE 40MG TABLET PO SCH (11:54)
[2019-01-27] MEDS: LACTOBACILLUS CHEW TABLET PO SCH (11:54)
[2019-01-27] MEDS: FOLIC ACID 1 MG TABLET PO SCH (11:54)
[2019-01-27] MEDS: HYDROCORTISONE 25 MG SUPP PR SCH (11:55)
[2019-01-27] MEDS: LANTHANUM CARBONATE 500 MG HOMEMEDPO SCH ×2 (11:56→12:00)
[2019-01-27] MEDS: TRIAMCINOLONE CRM 0.1%, 15GM TP SCH (11:57)
[2019-01-27] MEDS: LIDODERM 5% PATCH TD SCH (11:58)
[2019-01-27 13:03] VITALS: BP 108/34
== END 2019-01-27 14:36 | DRG 853 ==
LOC: ED 03:57 → EDIP 05:13 → 4WST 06:45 → 5SO 11-16 10:32 → 4EST 11-20 17:32 → 5SO 12-18 12:27 → 4WST 12-22 17:58
PROVIDERS: ADMIT Family Medicine; ATTEND Family Medicine
PROC: 30233R1 Transfusion of Nonautologous Platelets into Peripheral Vein, Percutaneous Approach (ICD-10-PCS; principal; 2018-11-07)
PROC: 5A1D70Z Performance of Urinary Filtration, Intermittent, Less than 6 Hours Per Day (ICD-10-PCS; 2018-11-09)
PROC: 5A1D70Z Performance of Urinary Filtration, Intermittent, Less than 6 Hours Per Day (ICD-10-PCS; 2018-11-11)
PROC: 5A1D70Z Performance of Urinary Filtration, Intermittent, Less than 6 Hours Per Day (ICD-10-PCS; 2018-11-13)
PROC: 5A1D70Z Performance of Urinary Filtration, Intermittent, Less than 6 Hours Per Day (ICD-10-PCS; 2018-11-16)
PROC: 4A023N8 Measurement of Cardiac Sampling and Pressure, Bilateral, Percutaneous Approach (ICD-10-PCS; 2018-11-16)
PROC: B2111ZZ Fluoroscopy of Multiple Coronary Arteries using Low Osmolar Contrast (ICD-10-PCS; 2018-11-16)
PROC: B2151ZZ Fluoroscopy of Left Heart using Low Osmolar Contrast (ICD-10-PCS; 2018-11-16)
PROC: 5A1D70Z Performance of Urinary Filtration, Intermittent, Less than 6 Hours Per Day (ICD-10-PCS; 2018-11-18)
PROC: 5A1D70Z Performance of Urinary Filtration, Intermittent, Less than 6 Hours Per Day (ICD-10-PCS; 2018-11-20)
PROC: 5A1D70Z Performance of Urinary Filtration, Intermittent, Less than 6 Hours Per Day (ICD-10-PCS; 2018-11-23)
PROC: 30233N1 Transfusion of Nonautologous Red Blood Cells into Peripheral Vein, Percutaneous Approach (ICD-10-PCS; 2018-11-24)
PROC: 0NQV0ZZ Repair Left Mandible, Open Approach (ICD-10-PCS; 2018-11-25)
PROC: 0NQT0ZZ Repair Right Mandible, Open Approach (ICD-10-PCS; 2018-11-25)
PROC: 0CDXXZ1 Extraction of Lower Tooth, Multiple, External Approach (ICD-10-PCS; 2018-11-25)
PROC: 0CDWXZ1 Extraction of Upper Tooth, Multiple, External Approach (ICD-10-PCS; 2018-11-25)
PROC: 5A1D70Z Performance of Urinary Filtration, Intermittent, Less than 6 Hours Per Day (ICD-10-PCS; 2018-11-26)
PROC: 5A1D70Z Performance of Urinary Filtration, Intermittent, Less than 6 Hours Per Day (ICD-10-PCS; 2018-11-27)
PROC: 5A1D70Z Performance of Urinary Filtration, Intermittent, Less than 6 Hours Per Day (ICD-10-PCS; 2018-11-30)
PROC: 5A1D70Z Performance of Urinary Filtration, Intermittent, Less than 6 Hours Per Day (ICD-10-PCS; 2018-12-02)
PROC: 5A1D70Z Performance of Urinary Filtration, Intermittent, Less than 6 Hours Per Day (ICD-10-PCS; 2018-12-04)
PROC: 5A1D70Z Performance of Urinary Filtration, Intermittent, Less than 6 Hours Per Day (ICD-10-PCS; 2018-12-07)
PROC: 5A1D70Z Performance of Urinary Filtration, Intermittent, Less than 6 Hours Per Day (ICD-10-PCS; 2018-12-09)
PROC: 5A1D70Z Performance of Urinary Filtration, Intermittent, Less than 6 Hours Per Day (ICD-10-PCS; 2018-12-11)
PROC: 5A1D70Z Performance of Urinary Filtration, Intermittent, Less than 6 Hours Per Day (ICD-10-PCS; 2018-12-14)
PROC: 5A1D70Z Performance of Urinary Filtration, Intermittent, Less than 6 Hours Per Day (ICD-10-PCS; 2018-12-16)
PROC: 5A1D70Z Performance of Urinary Filtration, Intermittent, Less than 6 Hours Per Day (ICD-10-PCS; 2018-12-18)
PROC: 5A1D70Z Performance of Urinary Filtration, Intermittent, Less than 6 Hours Per Day (ICD-10-PCS; 2018-12-21)
PROC: 5A1D70Z Performance of Urinary Filtration, Intermittent, Less than 6 Hours Per Day (ICD-10-PCS; 2018-12-23)
PROC: 5A1D70Z Performance of Urinary Filtration, Intermittent, Less than 6 Hours Per Day (ICD-10-PCS; 2018-12-25)
PROC: 5A1D70Z Performance of Urinary Filtration, Intermittent, Less than 6 Hours Per Day (ICD-10-PCS; 2018-12-28)
PROC: 5A1D70Z Performance of Urinary Filtration, Intermittent, Less than 6 Hours Per Day (ICD-10-PCS; 2018-12-30)
PROC: 5A1D70Z Performance of Urinary Filtration, Intermittent, Less than 6 Hours Per Day (ICD-10-PCS; 2019-01-01)
PROC: 5A1D70Z Performance of Urinary Filtration, Intermittent, Less than 6 Hours Per Day (ICD-10-PCS; 2019-01-04)
PROC: 0W3P8ZZ Control Bleeding in Gastrointestinal Tract, Via Natural or Artificial Opening Endoscopic (ICD-10-PCS; 2019-01-05)
PROC: 5A1D70Z Performance of Urinary Filtration, Intermittent, Less than 6 Hours Per Day (ICD-10-PCS; 2019-01-06)
PROC: 5A1D70Z Performance of Urinary Filtration, Intermittent, Less than 6 Hours Per Day (ICD-10-PCS; 2019-01-08)
PROC: 5A1D70Z Performance of Urinary Filtration, Intermittent, Less than 6 Hours Per Day (ICD-10-PCS; 2019-01-11)
PROC: 5A1D70Z Performance of Urinary Filtration, Intermittent, Less than 6 Hours Per Day (ICD-10-PCS; 2019-01-13)
PROC: 5A1D70Z Performance of Urinary Filtration, Intermittent, Less than 6 Hours Per Day (ICD-10-PCS; 2019-01-15)
PROC: 5A1D70Z Performance of Urinary Filtration, Intermittent, Less than 6 Hours Per Day (ICD-10-PCS; 2019-01-18)
PROC: 5A1D70Z Performance of Urinary Filtration, Intermittent, Less than 6 Hours Per Day (ICD-10-PCS; 2019-01-20)
PROC: 5A1D70Z Performance of Urinary Filtration, Intermittent, Less than 6 Hours Per Day (ICD-10-PCS; 2019-01-22)
PROC: 5A1D70Z Performance of Urinary Filtration, Intermittent, Less than 6 Hours Per Day (ICD-10-PCS; 2019-01-25)
PROC: 5A1D70Z Performance of Urinary Filtration, Intermittent, Less than 6 Hours Per Day (ICD-10-PCS; 2019-01-27)
DX: A41.81 Sepsis due to Enterococcus (principal); I33.0 Acute and subacute infective endocarditis; N18.6 End stage renal disease; D61.818 Other pancytopenia; D68.9 Coagulation defect, unspecified; E27.40 Unspecified adrenocortical insufficiency; E46 Unspecified protein-calorie malnutrition; Z68.43 Body mass index [BMI] 50.0-59.9, adult; I13.2 Hypertensive heart and chronic kidney disease with heart failure and with stage 5 chronic kidney disease, or end stage renal disease; I47.1 Supraventricular tachycardia; I50.32 Chronic diastolic (congestive) heart failure; K76.6 Portal hypertension; D62 Acute posthemorrhagic anemia; R65.20 Severe sepsis without septic shock; D53.9 Nutritional anemia, unspecified; D63.1 Anemia in chronic kidney disease; E11.22 Type 2 diabetes mellitus with diabetic chronic kidney disease; E11.649 Type 2 diabetes mellitus with hypoglycemia without coma; E66.01 Morbid (severe) obesity due to excess calories; E87.6 Hypokalemia; G47.00 Insomnia, unspecified; I08.0 Rheumatic disorders of both mitral and aortic valves; I95.3 Hypotension of hemodialysis; I95.89 Other hypotension; I99.8 Other disorder of circulatory system; K02.9 Dental caries, unspecified; K04.7 Periapical abscess without sinus; K05.6 Periodontal disease, unspecified; K06.8 Other specified disorders of gingiva and edentulous alveolar ridge; K21.0 Gastro-esophageal reflux disease with esophagitis; K59.00 Constipation, unspecified; K72.10 Chronic hepatic failure without coma; K74.60 Unspecified cirrhosis of liver; L89.91 Pressure ulcer of unspecified site, stage 1; N49.2 Inflammatory disorders of scrotum; N50.89 Other specified disorders of the male genital organs; Z88.8 Allergy status to other drugs, medicaments and biological substances; E11.65 Type 2 diabetes mellitus with hyperglycemia; N25.0 Renal osteodystrophy; I87.8 Other specified disorders of veins; K31.819 Angiodysplasia of stomach and duodenum without bleeding; K55.20 Angiodysplasia of colon without hemorrhage; K75.81 Nonalcoholic steatohepatitis (NASH); Z66 Do not resuscitate; Z79.4 Long term (current) use of insulin; Z79.899 Other long term (current) drug therapy; Z82.49 Family history of ischemic heart disease and other diseases of the circulatory system; Z85.47 Personal history of malignant neoplasm of testis; Z86.79 Personal history of other diseases of the circulatory system; Z87.11 Personal history of peptic ulcer disease; Z87.891 Personal history of nicotine dependence; Z88.1 Allergy status to other antibiotic agents; Z95.2 Presence of prosthetic heart valve; Z99.2 Dependence on renal dialysis; S80.12XA Contusion of left lower leg, initial encounter; W18.39XA Other fall on same level, initial encounter; Y93.89 Activity, other specified; Y92.89 Other specified places as the place of occurrence of the external cause; Y99.8 Other external cause status; K26.9 Duodenal ulcer, unspecified as acute or chronic, without hemorrhage or perforation
CPT/HCPCS: 36415; 70100; 87338; 93460; 93567; 99291; J3490; 71045; 80048; 80053; 80061; 80069; 82040; 82108; 82140; 82272; 82274; 82306; 82330; 82550; 82607; 82728; 82962; 83036; 83540; 83550; 83605; 83735; 83970; 84100; 84439; 84443; 84484; 85014; 85018; 85025; 85610; 85651; 86140; 86705; 86706; 86803; 86850; 86900; 86923; 87040; 87070; 87077; 87186; 87205; 87324; 87340; 93005; 93306; 93312; 93325; 93922; 99156; 99157; C1769; C1894; G0378; J0153; J0171; J0290; J0295; J0583; J0696; J0878; J0882; J1170; J1644; J2250; J3010; J3370; P9047; Q9967; 29580-50; 29580-GP; 29581-50; J1815; J2270; J7040; P9016; P9035